=== PATIENT | female | born 1940 | race Caucasian/White ===

== ENCOUNTER 2017-07-11 14:30 | Outpatient (RCR) | payer MEDICARE, OTHER, SELFPAY ==
--- NOTE | 2017-05-07 14:53 | HP.PTEVAL_ITS ---
Patient's Visit Information MIREYA OSBORNE is a 76 year old F referred to Physical Therapy by Moises Angelo MD with a diagnosis of falls/balance issues.. Date of Evaluation: 05/07/17 Physical Therapist: Lance Hernández DPT, OC - Visit Plan Frequency: 2x /Week Duration: 4-6 Weeks Plan: Neurocom balance test then. 2x/week for 4-6 weeks for. 1. balance per reuslts. 2. Gait training\. 3. Strength of posture and LE care to be taken with L knee OA. Progress to HEP when safety allows. - Subjective Subjective: Stopped balance therapy b/c admitted to hospital for two weeks with strokes including rehab floor. Doctor Yessenia sent her to hospital after MRI results showed strokes. saw Dr. 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 Much blood pressure meds changed. Nerve study on L leg showed neuropathy. Fallen a number of times usually to the left most recently after hospital stay while reaching onto refrigerator and fell backwards. Had walk in front of her. Face was all bruised up. Got up off floor herself with UE. Has stairs 2 with one rail which she does with R LE. No spinning but describes unsteadiness. Then says some spinning when gets up too quick. L leg is neuropathic, doesn't feel numb in legs, then maybe a little on L Wears supportive socks. Uses wh walker 100% of time....used it since January. Lives with who is home with her but sick with COPD. Dtr helps her clean. Pt cooks. Basic ADLs are I on toilet and shower now. Spends the day at home, cannot drive. No regular exercises but has been given home exercises...she has been slacking with LE movements. - Objective Walks with wh walker back to PT Mod I. Without Walker needs MIn A due to many LOB. Transfers with UE I. steps are very weak with L leg and painful(OA) and needs 2 rail, tends to use R. reflexes 0/3 patella and achilles. Sensation LE is diminished mioderately to gross light touch L>R. Strenght is 3+ of L LE and 4- on R. LE AROM WFL but coordination of reciprocal toe and heel tap is poor and inv/ev challenging for patient. UE AROM WFL and strength 4-/5. VOR ambulation is hard, VOR at rest is challenging and slow head mvoement. - Balance Scores Functional Gait Assessment Score: 14 % Disability: 53.3400 CATSIB Score (Max score 120 seconds): 55 - Goals Goal 1:: FGA20/30 to diminish fall risk Goal Time Frame: 4-6 Weeks Goal 2:: Pt ascend and descend steps with one rail utilizing each leg. Goal Time Frame: 4-6 Weeks Goal 3:: Pt feel 50% stronger and able to do dishes without fatigue. Goal Time Frame: 4-6 Weeks Goal 4:: I approp HEP for balance and strength. Goal Time Frame: 4-6 Weeks Goal 5:: Neurocom balance assessment per order. Goal Time Frame: 2 Weeks - Rehabilitation Potential Physical Therapy Diagnosis: Unsteadyiness, multifactorial neuropathy/strokes/ weakness Rehabilitation Potential: Fair - Anticipated Interventions Patient/Client Instruction: Educate patient on: Condition, Risk Factors Comments: balance For the Purpose of:: To improve safety with gait Therapeutic Exercise to Include: Strength training, Balance training, Gait and locomotor training For the Purpose of:: To improve ability of physical actions for home/community/ work/leisure, To improve gait and locomotor functions, To improve safety with gait Thank you for the opportunity to evaluate your patient. For Medicare and Medicare HMO plans, please review the plan of care and approve it. It will need to be FAXED BACK to us at [phone] for Medicare purposes. Please let me know if there are questions or concerns regarding this plan of care. Physician Signature: Date:
--- NOTE | 2017-05-21 11:30 | HP.PTCOM ---
PT Communication Note 05/21/[address] Moises Angelo MD , Thank you for the referral of Yesenia to [email or web address] for balance assessment. I have enclosed a copy of her results for your review. In summation, she scored low on the vestibular portion of the Sensory Organization test. She also scored low on the forward weight shift control and forward and right weight shift excursion on the Limtis of Stability Test. In the battery of tests she showed a center of gravity malalignment to the Left. With these results in mind, I plan to see her 2x/week for 4 weeks for realignment of center of gravity, forward and right weight shifting, LE adn postural strength and gait training. If there are questions regarding her PT, please feel free to call me. Thank you again. Sincerely, Lance Hernández DPT, OC Contact Information
--- NOTE | 2017-05-21 11:33 | HP.PTCOM_ITS ---
PT Communication Note 05/21/[address] Moises Angelo MD , Thank you for the referral of Yesenia to [email or web address] for balance assessment. I have enclosed a copy of her results for your review. In summation, she scored low on the vestibular portion of the Sensory Organization test. She also scored low on the forward weight shift control and forward and right weight shift excursion on the Limtis of Stability Test. In the battery of tests she showed a center of gravity malalignment to the Left. With these results in mind, I plan to see her 2x/week for 4 weeks for realignment of center of gravity, forward and right weight shifting, LE adn postural strength and gait training. If there are questions regarding her PT, please feel free to call me. Thank you again. Sincerely, Lance Hernández DPT, OC Contact Information
--- NOTE | 2017-06-25 11:45 | HP.PTREVAL_ITS ---
Moises Angelo MD, It has been my pleasure to treat MIREYA OSBORNE over the last 9 visits for falls /balance issues.. Please see the progress note below for an update on the physical therapy plan of care! Subjective: Knee pain L>R has been worse lately. 02/13 today. Will try to see doctor this week. Feels like balance is improving as she is not falling. Uses wh walker much of time. Hard to keep it close. Doing HEP for LE movements and posture. Objective/Function: SOT: +9 and normal sensory breakdown. LOS:improvong FW weight shift. FGA:+6. OVERALL IMPROVING BALANCE. ;PT HAS KNEE PAIN WHCIH SHE HALLMAN EE HER FAMILY DOCTOR FOR. SEEMS TO HAVE PROBLEMS WITH WALKING WITH HEAD MOVEMENTS STILL THIS IS UNSTEADY Plan Plan: Pt wants to take a break for the holiodays and resume in the New YEar. 2x /week for 3-4 weeks...please focus on walking with head movements, forward weight shift and progressing to balance HEP with foam, head movements and forward weight shift with pics. Also, pt to bring cane for attempted gait training to safety with cane. Goals Goal 1:: FGA2/ to diminish fall risk Goal Time Frame: 4-6 Weeks Goal Progress: Goal Met Goal 2:: Pt ascend and descend steps with one rail utilizing each leg. Goal Time Frame: 4-6 Weeks Goal Progress: Goal Met Goal 3:: Pt feel 50% stronger and able to do dishes without fatigue. Goal Time Frame: 4-6 Weeks Goal Progress: Progressing Goal 4:: I approp HEP for balance and strength. Goal Time Frame: 4-6 Weeks Goal Progress: Progressing Goal 5:: Neurocom balance assessment per order. Goal Time Frame: 2 Weeks Goal Progress: Goal Met Goal 6:: FGA and I in use of cane safely at home. Goal Time Frame: 2-4 Weeks Goal Progress: NEW GOAL Anticipated Interventions Patient/Client Instruction: Educate patient on: Condition, Risk Factors Comments: balance For the Purpose of:: To improve safety with gait Therapeutic Exercise to Include: Strength training, Balance training, Gait and locomotor training For the Purpose of:: To improve ability of physical actions for home/community/ work/leisure, To improve gait and locomotor functions, To improve safety with gait Please do not hesitate to contact me at [phone] by phone or Fax: if you have questions or concerns regarding this new plan of care! Sincerely, GUADALUPE TiptonT, OC
--- NOTE | 2017-11-05 08:54 | HP.PTDCNRP_ITS ---
HP - Discharge Summary (1) - Patient Information MIREYA OSBORNE was seen in my office for initial evaluation on 05/07/17. The following Plan of Care was established for this patient: Initial Frequency: 2x /Week Initial Duration: 4-6 Weeks - Anticipated Interventions Patient/Client Instruction: Educate patient on: Condition, Risk Factors Comments: balance For the Purpose of:: To improve safety with gait Therapeutic Exercise to Include: Strength training, Balance training, Gait and locomotor training For the Purpose of:: To improve ability of physical actions for home/community/ work/leisure, To improve gait and locomotor functions, To improve safety with gait This patient was last seen in our office 07/11/17. Pertinent comments regarding their Physical therapy will appear below: Pt seen for 11 visits for her balance and was making progress. She cancelled her last remaining visits and neglected to reschedule. at this point, I will discontinue due to nonattendance as it has been over three months. At this point I will be discontinuing this patient from physical therapy. I would be happy to see this patient again in the future if found appropriate by the physician. Thank you! Lance Hernández, DPT, OC
== END 2017-07-11 19:00 | disposition home or self-care (01) ==
LOC: PT 14:30
PROVIDERS: Family Provider Internal Medicine; PCP Internal Medicine; Visit Provider Psychiatry & Neurology Neurology
DX: R26.81 Unsteadiness on feet (principal); R29.6 Repeated falls
CPT/HCPCS: 97110; 97162; 97750; 97116; 97530; G8978; G8979

== ENCOUNTER → 2017-09-22 11:12 | Outpatient (CLI) | payer MEDICARE, OTHER, SELFPAY ==
[2017-09-22 11:20] LABS: Mucous, Urine 0 SEEN /hpf (<or=2+)
[2017-09-22 11:49] LABS: Absolute Lymphocyte Count 1.52 X10^3/ul (0.83-4.51); Absolute Neutrophil Count 3.2 X10^3/uL (2.0-7.7); Basophil# 0.02 X10^3/uL; Basophil% 0.4 % (0-1); Eosinophil# 0.15 X10^3/uL; Eosinophils% 2.7 % (0-5); Hematocrit 40.9 % (37-47); Hemoglobin 13.9 g/dl (12.0-15.0); Lymphocyte # 1.52 X10^3/ul (4.0); Lymphocyte % 27.2 % (19-41); Mean Corpuscular Hgb 32.7 pg (27.0-32.0); Mean Corpuscular Volume 96.2 fL (81-99); Mean Platelet Vol. 9.4 fl (6.2-12.0); Monocyte# 0.66 X10^3/uL; Monocyte% 11.8 % (0-10); Neutrophil # 3.23 X10^3/uL (2.7-7.7); Neutrophil % 57.9 % (47-70); Platelet Count 304 K/mm3 (150-450); RBC Distribution Width SD 45.4 fl (35.1-43.9); Red Blood Count 4.25 M/mm3 (4.2-5.4); White Blood Count 5.6 K/mm3 (4.4-11.0)
[2017-09-22 11:50] LABS: Color, Urine Yellow (Yellow); Glucose, Dipstick Normal (Normal); Ketone-Dipstick Negative (Negative); Leukocyte Esterase-Dipstick 500 /ul (Negative); Nitrite-Dipstick Positive (Negative); Occult Blood-Urine 10 /ul (Negative); POSITIVE COUNT NO; POSITIVE DIFFERENTIAL NO; POSITIVE MORPHOLOGY NO; Protein-Dipstick 15 mg/dl (Negative); Specific Gravity, Urine 1.025 (1.002-1.030); Urine Bilirubin Dipstick Negative (Negative); Urine Clarity Sl. Cloudy (Clear); Urine Urobilinogen Normal (Normal)
[2017-09-22 11:59] LABS: Bacteria 2+ /hpf (None Seen); Red Blood Cells-Urine 0-5 SEEN /hpf (0-5); Squamous Epithelial Cells - UA 0-5 SEEN /hpf (5-10); White Blood Cells 25-50 SEEN /hpf (0-5)
[2017-09-22 12:13] LABS: Microalbumin,Random Urine 42.6 mg/L (NO RANGE EST.); Microalbumin:Creatinine Ratio 25.8 mg/g CRE (<30 mg/g CRE)
[2017-09-22 14:37] LABS: ALB/GLOB Ratio 0.9 RATIO (0.9-2.4); AST(SGOT) 22 U/L (15-37); Alanine Aminotransfer ALT/SGPT 24 U/L (13-56); Albumin, Serum 3.5 g/dL (3.2-5.0); Alkaline Phosphatase 86 U/L (45-117); Anion Gap 10 (5-15); BUN 13 mg/dL (7-18); BUN/Creat Ratio 15.9 RATIO (10-20); Calcium,Total 8.7 mg/dL (8.5-10.1); Chloride 100 mmol/L (98-107); Cholesterol 181 mg/dL (200); Creatinine, Serum 0.82 mg/dL (0.55-1.02); EST Glomerular Filtration Rate 72 mL/min (>60); Est Glom Filt Rate - Afr Amer 87 mL/min (>60); Globulin 3.9 g/dL (2.2-4.2); Glucose 104 mg/dL (74-106); High Density Lipoprotein 35 mg/dL; Potassium 3.5 mmol/L (3.5-5.1); Protein, Total 7.4 g/dL (6.4-8.2); Sodium Level 137 mmol/L (136-145); Thyroid Stim Hormone (TSH) 1.39 uIU/mL (0.358-3.74); Triglycerides 189 mg/dL; Very Low Density Lipoprotein 38 mg/dL (5-40)
== END ==
PROVIDERS: Family Provider Internal Medicine; PCP Internal Medicine; Visit Provider Internal Medicine
DX: E03.9 Hypothyroidism, unspecified (principal); E78.00 Pure hypercholesterolemia, unspecified; R73.02 Impaired glucose tolerance (oral)
CPT/HCPCS: 36415; 80053; 80061; 81001; 82043; 82570; 84443; 85025

== ENCOUNTER → 2017-11-05 10:47 | Outpatient (CLI) | payer MEDICARE, OTHER, SELFPAY ==
--- NOTE | 2017-11-05 10:52 | MRI_ITS ---
STUDY: MRI CERVICAL SPINE WITHOUT CONTRAST REASON FOR EXAM: Female, 77 years old. CERVICAL STENOSIS -- NKI,no neck pain or arm radiculopathy, off balance with bilat leg weakness. TECHNIQUE: Standardized fat and water weighted pulse sequences were obtained in the sagittal and axial planes. COMPARISON: None FINDINGS: Normal foramen magnum and brainstem-cervical cord junction. Normal craniovertebral junction. Normal anterior atlantoaxial articulation. Normal odontoid process. There is straightening of the normal cervical lordosis. C2-3: There is normal disc space height. There is minimal anterolisthesis. There is facet arthropathy. There is no significant central canal or foraminal stenosis. C3-4: There is mild disc space narrowing and endplate spondylosis. There is a mild disc osteophyte complex with mild central canal stenosis. There is uncovertebral and facet arthropathy with severe left foraminal stenosis. There is mild right foraminal stenosis. C4-5: There is moderate disc space narrowing and anterior spondylosis. There is a mild disc osteophyte complex with mild central canal stenosis. Uncovertebral and facet arthropathy with moderate right and severe left foraminal stenosis. C5-6: There is severe disc space narrowing and endplate spondylosis. There is a disc osteophyte complex with moderate central canal stenosis. There is uncovertebral and facet arthropathy with severe right and moderate left foraminal stenosis. There is minimal retrolisthesis. C6-7: There is mild disc space narrowing and anterior spondylosis. There is minimal minimal disc osteophyte complex and uncovertebral arthropathy without significant spinal canal or foraminal stenosis. C7-T1: Normal endplates. Normal disc height, signal and morphology. Normal central canal and intervertebral neural foramina. Normal cervical cord. Normal visualized soft tissue structures. MRI/Spine Cervical (Routine) IMPRESSION: C3/C4: Severe left foraminal stenosis. C4/C5: Moderate right and severe left foraminal stenosis. C5/C6: Moderate central canal stenosis. Severe right and moderate left foraminal stenosis. Electronically Signed: Che Quintanilla MD at 12:44 EDT Tel , Service support ,
== END ==
PROVIDERS: Family Provider Internal Medicine; PCP Internal Medicine; Visit Provider Psychiatry & Neurology Neurology
DX: G95.20 Unspecified cord compression (principal); M48.02 Spinal stenosis, cervical region
CPT/HCPCS: 72141

== ENCOUNTER → 2017-11-12 10:26 | Outpatient (CLI) | payer MEDICARE, OTHER, SELFPAY ==
--- NOTE | 2017-11-12 10:28 | BI_ITS ---
MAMMOGRAPHY - BILATERAL SCREENING REASON FOR EXAM: Female, 77 years old. Routine annual screening examination. PERTINENT HISTORY: Non-contributory. History of prior bilateral breast reduction surgery. TECHNIQUE: Digital bilateral breast loli (3D mammographic acquisition) in the CC and MLO projections. 2-D mediolateral oblique (MLO) and craniocaudad (CC) views of both breasts were obtained. CAD: Full Field Digital Mammography with Computer Added Detection was performed. COMPARISON: Comparison is made with prior study dated February 29, 2016 and May 05, 2014. FINDINGS: Breast Composition: There are scattered areas of fibroglandular density. There are no dominant masses or suspicious calcifications. Stable small bilateral benign appearing axillary lymph nodes. No other significant abnormalities are identified. There has been no significant change since the prior study. BI/SCREENING MAMM (CAD), BILAT IMPRESSION: Stable bilateral screening mammogram. Yearly follow-up mammogram recommended. (A) ASSESSMENT CATEGORY: BIRADS Category 2: Benign. A letter regarding these results will be sent to the patient by the facility within 30 days. Approximately 10% of breast cancers are not detected by mammography. A normal mammogram should not delay biopsy of a clinically suspicious abnormality. [id number] Electronically Signed: Panfilo Gonsalves MD at 13:31 EDT Tel [phone], Service support ,
--- NOTE | 2017-11-12 10:35 | BD_ITS ---
STUDY: DUAL ENERGY X-RAY ABSORPTIOMETRY / DXA REASON FOR EXAM: Female, 77 years old. The patient is postmenopausal. Loss of height. TECHNIQUE: Bone Mineral Density (BMD) measurements of lumbar spine and bilateral hips were obtained. COMPARISON: Comparison is made with prior study dated February 25, 2013. FINDINGS: Lumbar Spine (L1-L4): g/cm2 (1.315) / T-score (1.0) / Z-score (2.7) Findings are suggestive of normal bone density with a low fracture risk. Left Femur Total: g/cm2 (1.071) / T-score (0.5) / Z-score (2.4) Left Femoral Neck: g/cm2 (1.091) / T-score (0.4) / Z-score (2.4) Right Femur Total: g/cm2 (1.044) / T-score (0.3) / Z-score (2.2) Right Femoral Neck: g/cm2 (1.034) / T-score (0.0) / Z-score (2.0) The T-Scores on the most recent prior examination were: Left Femur Total: which represents a worsening of 0.6%. Right Femur Total: which represents an improvement of 2.2%. BD/Dexa Bone Density Study IMPRESSION: The patient is considered normal as outlined below according to World Ryan Organization (WHO) criteria with a low fracture risk. There has been improvement of bone density since the previous examination. Reference Information: The T-score is the number of standard deviations above or below the standard which is normal for young adults at their peak bone mineral density. The World Health Organization (WHO) interprets the T-scores as follows: Above -1 Normal bone density Between -1 and -2.5 Osteopenia Equal to / or below -2.5 Osteoporosis As a practical clinical guideline, osteopenia may be graded as follows: Mild -1 through -1.5 Moderate -1.6 through -2.0 Severe -2.1 through -2.4 The Z-score is the number of standard deviations above or below age-matched controls. A Z-score of less than -1.5 would be considered abnormal. References: 1. NIH Osteoporosis and Related Bone Diseases http://www.osteo.org 2. International Society for Clinical Densitometry http://www.iscd.org 3. National Osteoporosis Foundation http://www.nof.org Electronically Signed: Panfilo Gonsalves MD at 14:22 EDT Tel [phone], Service support ,
== END ==
PROVIDERS: Family Provider Internal Medicine; PCP Internal Medicine; Visit Provider Internal Medicine
DX: Z78.0 Asymptomatic menopausal state (principal); Z12.31 Encounter for screening mammogram for malignant neoplasm of breast
CPT/HCPCS: 77063; 77067; 77080

== ENCOUNTER → 2018-03-04 09:45 | Outpatient (CLI) | payer MEDICARE, OTHER, SELFPAY ==
[2018-03-04 09:55] LABS: Bacteria 0 SEEN /hpf (None Seen); Mucous, Urine 0 SEEN /hpf (<or=2+); Red Blood Cells-Urine 0 SEEN /hpf (0-5); Squamous Epithelial Cells - UA 0 SEEN /hpf (5-10)
[2018-03-04 10:32] LABS: Color, Urine Yellow (Yellow); Glucose, Dipstick Normal (Normal); Ketone-Dipstick Negative (Negative); Leukocyte Esterase-Dipstick 25 /ul (Negative); Nitrite-Dipstick Negative (Negative); Occult Blood-Urine Negative /ul (Negative); Protein-Dipstick Negative (Negative); Urine Bilirubin Dipstick Negative (Negative); Urine Clarity Clear (Clear); Urine Urobilinogen Normal (Normal)
[2018-03-04 10:35] LABS: Absolute Lymphocyte Count 1.41 X10^3/ul (0.83-4.51); Absolute Neutrophil Count 3.3 X10^3/uL (2.0-7.7); Basophil# 0.02 X10^3/uL; Basophil% 0.4 % (0-1); Eosinophil# 0.14 X10^3/uL; Eosinophils% 2.6 % (0-5); Hematocrit 45.1 % (37-47); Lymphocyte # 1.41 X10^3/ul (4.0); Mean Corp Hgb Conc 33.3 g/gl (32-36); Mean Corpuscular Hgb 31.6 pg (27.0-32.0); Mean Corpuscular Volume 95.1 fL (81-99); Mean Platelet Vol. 9.7 fl (6.2-12.0); Neutrophil # 3.25 X10^3/uL (2.7-7.7); Neutrophil % 59.8 % (47-70); Platelet Count 289 K/mm3 (150-450); RBC Distribution Width CV 13.5 % (11.6-14.6); Red Blood Count 4.74 M/mm3 (4.2-5.4); White Blood Count 5.4 K/mm3 (4.4-11.0)
[2018-03-04 10:37] LABS: POSITIVE COUNT NO; POSITIVE DIFFERENTIAL NO; POSITIVE MORPHOLOGY NO
[2018-03-04 11:05] LABS: ALB/GLOB Ratio 0.9 RATIO (0.9-2.4); AST(SGOT) 22 U/L (15-37); Alanine Aminotransfer ALT/SGPT 29 U/L (13-56); Albumin, Serum 3.5 g/dL (3.2-5.0); Alkaline Phosphatase 87 U/L (45-117); Anion Gap 9 (5-15); BUN 11 mg/dL (7-18); BUN/Creat Ratio 12.2 RATIO (10-20); Calcium,Total 8.6 mg/dL (8.5-10.1); Chloride 102 mmol/L (98-107); EST Glomerular Filtration Rate 64 mL/min (>60); Est Glom Filt Rate - Afr Amer 78 mL/min (>60); Globulin 4.1 g/dL (2.2-4.2); Glucose 93 mg/dL (74-106); Potassium 4.1 mmol/L (3.5-5.1); Protein, Total 7.6 g/dL (6.4-8.2); Sodium Level 138 mmol/L (136-145); Thyroid Stim Hormone (TSH) 2.15 uIU/mL (0.358-3.74)
[2018-03-04 11:15] LABS: White Blood Cells 0-5 SEEN /hpf (0-5)
[2018-03-04 11:17] LABS: Microalbumin,Random Urine < 5.0 mg/L (NO RANGE EST.)
[2018-03-07 12:07] LABS: CHOLESTEROL TOTAL 176 mg/dL (100-199); HDL-C 39 mg/dL (>39); HDL-P TOTAL 29.6 umol/L (>=30.5); SMALL LDL-P 811 nmol/L (<=527); TRIGLYCERIDES 198 mg/dL (0-149)
[2018-03-09 12:40] LABS: LDL SIZE 20.4 nm (>20.5); LDL-C 97 mg/dL (0-99); LDL-P 1519 nmol/L (<1000); LP-IR SCORE ** 89 (<=45)
== END ==
PROVIDERS: Family Provider Internal Medicine; PCP Internal Medicine; Visit Provider Internal Medicine
DX: E03.9 Hypothyroidism, unspecified (principal); I11.9 Hypertensive heart disease without heart failure
CPT/HCPCS: 36415; 80053; 80061; 81001; 82043; 82570; 83704; 84443; 85025

== ENCOUNTER → 2018-04-08 14:41 | Outpatient (CLI) | payer MEDICARE, OTHER, SELFPAY ==
--- NOTE | 2018-04-08 14:45 | RAD_ITS ---
STUDY: X-RAY - LEFT FOOT CLINICAL: Female, 77 years old. fell in the bathtub and hit ankle/foot several months ago TECHNIQUE: 3 view(s) of the foot. COMPARISON: None. FINDINGS: There is a plantar calcaneal spur. Postsurgical changes are noted in the first metatarsal. Normal visualized subtalar, talonavicular, calcaneocuboid, tarsal and tarsometatarsal articulations. There is demineralization of the metatarsi. Postsurgical changes are noted in the first metatarsal. There is degenerative arthrosis of the metatarsophalangeal joint of the hallux . Normal tibial and fibular sesamoid bones. There is degenerative arthrosis of the interphalangeal joint of the great toe. Normal phalanges of the great toe. There is degenerative arthrosis of the second through fifth metatarsophalangeal joints. There is degenerative arthrosis of the interphalangeal joints and phalanges of the lesser toes. The soft tissue structures are unremarkable. 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 There is a mildly displaced fracture of the lateral malleolus. Electronically Signed: Yara Muñoz MD at 13:13 EDT Tel , Service support ,
--- NOTE | 2018-04-08 14:45 | RAD_ITS ---
STUDY: X-RAY - LEFT ANKLE REASON FOR EXAM: Female, 77 years old. Fall TECHNIQUE: 3 view(s) of the ankle. COMPARISON: None. FINDINGS: Normal visualized distal tibia and fibula. Normal medial and lateral malleoli. Normal tibiotalar articulation and ankle mortise. Normal visualized talus and calcaneus. Plantar spurring of the calcaneus. The visualized subtalar, talonavicular, calcaneocuboid and tarsal articulations are normal. The soft tissue structures are unremarkable. Surgical clips medially likely from previous vascular surgery. RAD/Ankle min 3 Views IMPRESSION: No acute bony injury of the ankle. Electronically Signed: Luisito Pitts DO at 23:53 EDT Tel [phone], Service support ,
== END ==
PROVIDERS: Family Provider Internal Medicine; PCP Internal Medicine; Referring Provider Internal Medicine; Visit Provider Internal Medicine
DX: M25.572 Pain in left ankle and joints of left foot (principal); M25.672 Stiffness of left ankle, not elsewhere classified
CPT/HCPCS: 73610; 73630

== ENCOUNTER → 2018-04-21 05:00 | Outpatient (REF) | payer MEDICARE, OTHER, SELFPAY ==
[2018-04-21 07:41] LABS: Absolute Lymphocyte Count 1.44 X10^3/ul (0.83-4.51); Absolute Neutrophil Count 3.8 X10^3/uL (2.0-7.7); Basophil# 0.03 X10^3/uL; Basophil% 0.5 % (0-1); Eosinophil# 0.18 X10^3/uL; Eosinophils% 2.8 % (0-5); Hematocrit 37.1 % (37-47); Hemoglobin 13.3 g/dl (12.0-15.0); Lymphocyte # 1.44 X10^3/ul (4.0); Lymphocyte % 22.7 % (19-41); Mean Corp Hgb Conc 35.8 g/gl (32-36); Mean Corpuscular Hgb 33.3 pg (27.0-32.0); Mean Platelet Vol. 9.6 fl (6.2-12.0); Monocyte# 0.86 X10^3/uL; Monocyte% 13.5 % (0-10); Neutrophil # 3.82 X10^3/uL (2.7-7.7); Neutrophil % 60.2 % (47-70); Platelet Count 270 K/mm3 (150-450); RBC Distribution Width CV 13.1 % (11.6-14.6); RBC Distribution Width SD 43.5 fl (35.1-43.9); Red Blood Count 3.99 M/mm3 (4.2-5.4); White Blood Count 6.4 K/mm3 (4.4-11.0)
[2018-04-21 07:46] LABS: POSITIVE COUNT NO; POSITIVE DIFFERENTIAL NO; POSITIVE MORPHOLOGY NO
[2018-04-21 08:15] LABS: ALB/GLOB Ratio 0.9 RATIO (0.9-2.4); AST(SGOT) 20 U/L (15-37); Alanine Aminotransfer ALT/SGPT 22 U/L (13-56); Albumin, Serum 3.1 g/dL (3.2-5.0); Alkaline Phosphatase 92 U/L (45-117); Anion Gap 9 (5-15); BUN 9 mg/dL (7-18); BUN/Creat Ratio 11.3 RATIO (10-20); Calcium,Total 8.1 mg/dL (8.5-10.1); Chloride 92 mmol/L (98-107); Creatinine, Serum 0.79 mg/dL (0.55-1.02); EST Glomerular Filtration Rate 74 mL/min (>60); Est Glom Filt Rate - Afr Amer 90 mL/min (>60); Globulin 3.5 g/dL (2.2-4.2); Glucose 82 mg/dL (74-106); Potassium 3.1 mmol/L (3.5-5.1); Protein, Total 6.6 g/dL (6.4-8.2); Sodium Level 128 mmol/L (136-145); Thyroid Stim Hormone (TSH) 2.73 uIU/mL (0.358-3.74)
== END ==
LOC: OLS.AVEB 05:00
PROVIDERS: Visit Provider Family Medicine
DX: I11.0 Hypertensive heart disease with heart failure (principal); I50.9 Heart failure, unspecified; I49.9 Cardiac arrhythmia, unspecified; I73.9 Peripheral vascular disease, unspecified; E55.9 Vitamin D deficiency, unspecified; E03.9 Hypothyroidism, unspecified; E78.00 Pure hypercholesterolemia, unspecified; C71.9 Malignant neoplasm of brain, unspecified; Z86.73 Personal history of transient ischemic attack (TIA), and cerebral infarction without residual deficits
CPT/HCPCS: 36415; 80053; 84443; 85025

== ENCOUNTER → 2018-04-22 05:00 | Outpatient (REF) | payer MEDICARE, OTHER, SELFPAY ==
[2018-04-22 09:47] LABS: Anion Gap 10 (5-15); BUN 8 mg/dL (7-18); BUN/Creat Ratio 11.2 RATIO (10-20); Calcium,Total 8.4 mg/dL (8.5-10.1); Chloride 93 mmol/L (98-107); Creatinine, Serum 0.71 mg/dL (0.55-1.02); EST Glomerular Filtration Rate 84 mL/min (>60); Est Glom Filt Rate - Afr Amer 102 mL/min (>60); Glucose 87 mg/dL (74-106); Potassium 3.9 mmol/L (3.5-5.1); Sodium Level 128 mmol/L (136-145)
== END ==
LOC: OLS.AVEB 05:00
PROVIDERS: Visit Provider Family Medicine
DX: E87.6 Hypokalemia (principal)
CPT/HCPCS: 36415; 80048

== ENCOUNTER 2018-04-29 13:31 | Inpatient (IN) | payer MEDICARE, OTHER, SELFPAY ==
[2018-04-29] VITALS (12 sets, daily range): BP systolic 137–169; BP diastolic 54–107; PULSE 71–82; RESP 14–18; TEMP 36.4–36.7; O2SAT 93–99; BMI 30.2; BMI 29.5; BMI 29.6
--- NOTE | 2018-04-29 13:45 | EKG12_ITS ---
Test Reason : NEURO S/SX Blood Pressure : / mmHG Vent. Rate : 077 BPM Atrial Rate : 077 BPM P-R Int : 188 ms QRS Dur : 138 ms QT Int : 404 ms P-R-T Axes : 042 -14 -11 degrees QTc Int : 457 ms Normal sinus rhythm Right bundle branch block Inferior infarct , age undetermined Abnormal ECG Confirmed by SONAL ROSARIO, VIRGINIE ([id number]), editor map RONNIE CAVAZOS ([id number]) on 05/01/2018 1:25:51 PM Referred By: CARMINA Confirmed By:VIRGINIE PRUITT MD
--- NOTE | 2018-04-29 13:45 | CT_ITS ---
STUDY: CT BRAIN WITHOUT CONTRAST REASON FOR EXAM: Female, 77 years old. Left facial droop slurred speech RADIATION DOSAGE (If Supplied By Facility): CTDIvol = ( 44.99 ) mGy, DLP = ( 745.49 ) mGycm TECHNIQUE: Transaxial CT imaging of the brain was performed without administration of intravenous contrast material. Individualized dose optimization techniques were used for this CT. COMPARISON: April 08, 2017 CT scan head FINDINGS: Normal soft tissue structures. Normal calvarium. There is moderate cerebral atrophy with widening of the extra-axial spaces and ventricular dilatation. There are areas of decreased attenuation within the white matter tracts of the supratentorial brain, consistent with microvascular disease changes. There is low attenuation within the right-sided basal ganglia left greater than left stable since prior study compatible with old ischemic change. Normal brainstem. There is mild cerebellar atrophy. There is calcification of the bilateral cavernous carotid arteries. There is no intracranial hemorrhage. There are no findings of an acute ischemic infarction. Normal visualized paranasal sinuses. CT/Brain/Head without Contrast IMPRESSION: Moderate atrophy. Relatively stable appearing head CT. However given clinical history recommend consideration for follow-up MRI. Electronically Signed: Roseanna Tatum MD at 14:45 EDT Tel , Service support ,
[2018-04-29 13:51] LABS: Bedside Glucose 100 mg/dL (70-110)
[2018-04-29] MEDS: 0.9% Normal Saline 1,000 ML 100 ML IV (14:21)
[2018-04-29 14:30] LABS: Absolute Lymphocyte Count 1.36 X10^3/ul (0.83-4.51); Absolute Neutrophil Count 2.9 X10^3/uL (2.0-7.7); Basophil# 0.02 X10^3/uL; Basophil% 0.4 % (0-1); Eosinophil# 0.17 X10^3/uL; Eosinophils% 3.3 % (0-5); Hematocrit 40.5 % (37-47); Hemoglobin 13.7 g/dl (12.0-15.0); Lymphocyte # 1.36 X10^3/ul (4.0); Lymphocyte % 26.3 % (19-41); Mean Corp Hgb Conc 33.8 g/gl (32-36); Mean Corpuscular Hgb 32.4 pg (27.0-32.0); Mean Corpuscular Volume 95.7 fL (81-99); Monocyte# 0.67 X10^3/uL; Neutrophil # 2.94 X10^3/uL (2.7-7.7); Neutrophil % 56.8 % (47-70); POSITIVE COUNT NO; POSITIVE DIFFERENTIAL NO; POSITIVE MORPHOLOGY NO; Platelet Count 313 K/mm3 (150-450); RBC Distribution Width SD 47.2 fl (35.1-43.9); Red Blood Count 4.23 M/mm3 (4.2-5.4); White Blood Count 5.2 K/mm3 (4.4-11.0)
[2018-04-29 14:38] LABS: Prothrombin Time (Protime)PT. 12.9 SECONDS (11.7-14.9)
[2018-04-29 14:39] LABS: Partial Thromboplast Time 29.8 Seconds (24.1-36.2)
[2018-04-29 14:42] LABS: Anion Gap 8 (5-15); BUN 11 mg/dL (7-18); BUN/Creat Ratio 12.2 RATIO (10-20); Calcium,Total 8.7 mg/dL (8.5-10.1); Chloride 97 mmol/L (98-107); EST Glomerular Filtration Rate 64 mL/min (>60); Est Glom Filt Rate - Afr Amer 78 mL/min (>60); Estimated Creatinine Clearance 50.91 ml/min; Glucose 84 mg/dL (74-106); Potassium 4.5 mmol/L (3.5-5.1); Sodium Level 132 mmol/L (136-145)
--- NOTE | 2018-04-29 16:15 | PCM.HP.STD ---
Problem List (1) Slurred speech Status: Acute History of Present Illness Date of Admission: 04/29/18 Chief Complaint: slurred speech The patient is a 77 year old F with a PMH of HTN who was admitted through the ED on 04/29/18 with a complaint of slurred speech which started this morning. Patient is currently a patient in a SNF fo/a of right ankle fracture. She noted that she had slurring of her speech this morning. She couldnt say the exact time she noticed it, but whilst eating breakfast this morning, it wasnt present. Slurring of speech worsened so her daughter decided to bring her in to the hospital today. She had a mild headache yesterday, but denied any fever, chills, palpitations, SOB, lightheadedness, dizziness, ringing in her ears, abdominal pain, diarrhea or vomiting. EKG done in the ED showed RBBB and no acute ST changes. CT head was negative for any acute intracranial pathology. Labs were significant for sodium of 132, but was otherwise unremarkable. She is being admitted for stroke workup[] Past Medical History Past Medical History (Chronic Problems): Chronic Problems (Last Reviewed 11/06/17 @ 11:23 by Cheli Larson) Hypokalemia (Chronic) Presence of aortocoronary bypass graft (Chronic) CABG X 2 CAN-LAD, SVG-CX 06/11/2014 @ [facility] per Dr. Sutton Atherosclerotic heart disease of [place] coronary artery without angina pectoris (Chronic) Presence of coronary angioplasty implant and graft (Chronic) IVUS left main 06/07/2014, PCI-FAREED Prox & Mid LAD 04/13/2015 Paroxysmal atrial fibrillation (Chronic) Dyspnea on exertion (Chronic) Dizziness (Chronic) Near syncope (Chronic) Stenosis of right carotid artery (Chronic) Right bundle branch block (Chronic) Anxiety (Chronic) Hyperlipidemia (Chronic) Hypertension (Chronic) Hypothyroidism (Chronic) CVA (cerebral vascular accident) (Chronic) MRI demonstrated an acute infarct in the right thalamus and left parietal region. 01/2017 Medical History: Medical History (Last Reviewed 11/06/17 @ 11:23 by Cheli Larson) Hypokalemia (Chronic) E87.6 Atherosclerotic heart disease of [place] coronary artery without angina pectoris (Chronic) I25.10 Paroxysmal atrial fibrillation (Chronic) I48.0 Stenosis of right carotid artery (Chronic) I65.21 Right bundle branch block (Chronic) I45.10 Hyperlipidemia (Chronic) E78.5 Hypertension (Chronic) I10 Hypothyroidism (Chronic) E03.9 CVA (cerebral vascular accident) (Chronic) I63.9 MRI demonstrated an acute infarct in the right thalamus and left parietal region. 01/2017 Allergies atorvastatin Allergy (Verified 11/06/17 11:23) Unknown codeine Allergy (Verified 11/06/17 11:23) Unknown levofloxacin [From Levaquin] Allergy (Verified 11/06/17 11:23) Unknown Penicillins Allergy (Verified 11/06/17 11:23) Unknown pravastatin Allergy (Verified 11/06/17 11:23) myalgia Sulfa (Sulfonamide Antibiotics) Allergy (Verified 11/06/17 11:23) Unknown Home Medications: Ambulatory Orders Medication Instructions Recorded Levothyroxine [Synthroid] 75 mcg PO DAILY 06/07/14 ALPRAZolam [Xanax] 0.25 mg PO DAILY 04/29/18 Amlodipine Besylate [Norvasc] 2.5 mg PO DAILY 04/29/18 Bupropion HCl [Bupropion Xl] 150 mg PO DAILY 04/29/18 Clopidogrel Bisulfate [Plavix] 75 mg PO DAILY 04/29/18 Losartan Potassium [Cozaar] 100 mg PO DAILY 04/29/18 Potassium Chloride [Klor-Con M20] 40 meq PO BID 04/29/18 Venlafaxine XR [Effexor Xr] 150 mg PO DAILY 04/29/18 Surgical History: Surgical History (Last Reviewed 11/06/17 @ 11:23 by Cheli Larson) Presence of aortocoronary bypass graft (Chronic) Z95.1 CABG X 2 CAN-LAD, SVG-CX 06/11/2014 @ [facility] per Dr. Sutton Presence of coronary angioplasty implant and graft (Chronic) Z95.5 IVUS left main 06/07/2014, PCI-FAREED Prox & Mid LAD 04/13/2015 Surgical History: arthroscopy, knee, - - CABG, ankle surgery, kidney surgery, knee replacement Psychiatric History: No pertinent psych hx Lives: [place] Smoking Status: Never smoker Alcohol: None Drugs: None - *Family History Maternal Family History: Family History (Last Reviewed 11/06/17 @ 11:23 by Cheli Larson) Father Heart disease Sister Cancer Uncle CAD (coronary artery disease) History Items: - - strokers on mothers sides Paternal Family History: Family History (Last Reviewed 11/06/17 @ 11:23 by Cheli Larson) Father Heart disease Sister Cancer Uncle CAD (coronary artery disease) History Items: Heart Disease Review of Systems Constitutional: Denies: Chills, Fever, Malaise, Weakness, Weight Change, Fatigue Eyes: Reports: Conjunctivae Inflammation. Denies: Blurred vision, Double vision, Vision Change HEENT: Denies: Head Aches, Sinus Congestion, Sinus Drainage Cardiovascular: Denies: Chest Pain, Chest Pressure, Heaviness, Light Headedness, Palpitations, Paroxysmal Noc. Dyspnea, Syncope Respiratory: Denies: Cough, Shortness of Breath, Shortness of breath at rest, Sputum production, Wheezing Gastrointestinal: Denies: Abdominal Pain, Nausea, Vomiting Genitourinary: Denies: Dysuria Musculoskeletal: Denies: Joint Pain, Joint Tenderness Skin: Denies: Rash, Wounds Neurological: Reports: Balance problems, Change in Speech, Slurred speech. Denies: Blurred vision, Double vision, Confusion, Difficulty swallowing, Focal weakness, Headaches, Incoordination, Numbness, Tingling, Tremor, Seizures Psychiatric: Denies: Anxiety, Depression, Homicidal Ideations, Suicidal Ideations Hematologic/ Lymphatic: Denies: Easy Bruising, Easy Bleeding VTE Information - Inpt Only VTE Present on Admission: No VTE Pharm Prophylaxis ordered?: Yes Patient Problems: Active and Suspected Problems (Last Reviewed 11/06/17 @ 11:23 by Cheli Larson) Slurred speech (Acute) - Physical Exam General: Alert, Oriented x3, Cooperative, No apparent distress, - - has episodes of confusion HEENT: Atraumatic, PERRLA, EOMI, Normocephalic Oral: Moist Mucosa Neck: Supple, No JVD, Negative Carotid Bruits Lungs: Clear to auscultation, Normal air movement, No rhonchi, No wheeze, No rales Cardiovascular: Regular rate, Regular Rhythm, Normal S1, Normal S2, No murmurs Abdomen: Bowel Sounds Present, Soft, Non Tender, Non-Distended, No Hepato-splenomegaly Extremities: No clubbing, No cyanosis, No edema, Capillary Refill Less than 3 Seconds, - - RLE in leg splint Skin: No rashes, No breakdown Musculoskeletal: No Tenderness to Palpation of Joints or Extremities Lymphatic: No Cervical, Supraclavicular, or Inguinal Adenopathy Neurological: Slurred Speech, Muscle tone normal, Sensory exam intact to light touch and pain, - - NIHSS -2 (dysarthria and mild aphasia) Psych/Mental Status: Normal Affect, Appropriate, Alert and oriented to time, place, person, mood and affect Vital Signs Temp Pulse Resp BP Pulse Ox 97.5 F L 77 14 167/107 H 97 04/29/18 13:32 04/29/18 16:02 04/29/18 16:02 04/29/18 16:02 04/29/18 16:02 Oxygen Delivery Method Room Air Weight: 192 lb 14.472 oz Body Mass Index (BMI) 30.2 Finger Stick Blood Glucose 100 Laboratory Tests Past 24 Hrs 04/29/18 04/29/18 04/29/18 14:18 14:18 14:18 WBC 5.2 RBC 4.23 Hgb 13.7 Hct 40.5 MCV 95.7 MCH 32.4 H MCHC 33.8 RDW 14.0 RDW Differential 47.2 H Plt Count 313 MPV 9.0 Immature Gran % (Auto) 0.200 Neut % (Auto) 56.8 Lymph % (Auto) 26.3 Real % (Auto) 13.0 H Eos % (Auto) 3.3 Baso % (Auto) 0.4 Absolute Neuts (auto) 2.9 Absolute Lymphs (auto) 1.36 Total Counted Not Reportable PT 12.9 INR 1.0 APTT 29.8 Sodium 132 L Potassium 4.5 Chloride 97 L Carbon Dioxide 27.0 Anion Gap 8 BUN 11 Creatinine 0.90 Estim Creat Clear Calc 50.91 Est GFR (MDRD) Af Amer 78 Est GFR (MDRD) Non-Af 64 BUN/Creatinine Ratio 12.2 Glucose 84 Calcium 8.7 POC Glucose 04/29/18 13:43 POC Glucose [address] 04/29/18 13:45 IMPRESSION: Moderate atrophy. Relatively stable appearing head CT. However given clinical history recommend consideration for follow-up MRI. Electronically Signed: Roseanna Tatum MD at 14:45 EDT Tel , Service support , Assessment/Plan All Active Problems (Last Reviewed 11/06/17 @ 11:23 by Cheli Larson) Slurred speech (Acute) 77 y/o female presenting with slurred speech which started day of presentation 1. TIA slurred speech and mild aphasia present since this morning and has worsened NIHSS-2 says she was told in the past she had an abnormal heart rhythm, but doesnt remember whether it was Afib or otherwise admit to PCU with telemetry CT head was negative for any acute intracranial pathology MRI of the brain without contrast MRA of the head/neck with and without contrast check lipid panel and A1C aspirin 325mg given in ED; continue aspirin 81mg daily. Also on plavix o./a of CABG. continue neurology consult; 2D echo keep NPO until she passes bedside swallow evaluation will need 30 day event recorder upon discharge 2. Hyponatremia: Na is 132. Is chronic. Will monitor as patient is asymptomatic 3. Hypertension: poorly controlled. BP in 160s. Keep BP <130/80mmHg resume BP meds and adjust as needed to maintain BP below target range 4. Hyperlipidemia: patient has history of hyperlipidemia but doesnt take statins as she has a severe reaction. check lipid panel 5. LEft ankle fracture: in leg splint. fall precautions. PT/OT consult DVT prophylaxis: heparin COde status: full code. Patient and daughter counselled about different types of code status including full code, DNRCC and DNRCCA. Patient elects to be full code. TOtal face to face time- 16 mins Code Visit OBSV E&M: 37950 Initial observation care L3 Procedures: 57571 Advncd Care Plan 30 Min
--- NOTE | 2018-04-29 16:20 | HP.PCM_ITS ---
Problem List (1) Slurred speech Status: Acute History of Present Illness Date of Admission: 04/29/18 Chief Complaint: slurred speech The patient is a 77 year old F with a PMH of HTN who was admitted through the ED on 04/29/18 with a complaint of slurred speech which started this morning. Patient is currently a patient in a SNF fo/a of right ankle fracture. She noted that she had slurring of her speech this morning. She couldnt say the exact time she noticed it, but whilst eating breakfast this morning, it wasnt present. Slurring of speech worsened so her daughter decided to bring her in to the hospital today. She had a mild headache yesterday, but denied any fever, chills, palpitations, SOB, lightheadedness, dizziness, ringing in her ears, abdominal pain, diarrhea or vomiting. EKG done in the ED showed RBBB and no acute ST changes. CT head was negative for any acute intracranial pathology. Labs were significant for sodium of 132, but was otherwise unremarkable. She is being admitted for stroke workup[] Past Medical History Past Medical History (Chronic Problems): Chronic Problems (Last Reviewed 11/06/17 @ 11:23 by Cheli Larson) Hypokalemia (Chronic) Presence of aortocoronary bypass graft (Chronic) CABG X 2 CAN-LAD, SVG-CX 06/11/2014 @ [facility] per Dr. Sutton Atherosclerotic heart disease of [place] coronary artery without angina pectoris (Chronic) Presence of coronary angioplasty implant and graft (Chronic) IVUS left main 06/07/2014, PCI-FAREED Prox & Mid LAD 04/13/2015 Paroxysmal atrial fibrillation (Chronic) Dyspnea on exertion (Chronic) Dizziness (Chronic) Near syncope (Chronic) Stenosis of right carotid artery (Chronic) Right bundle branch block (Chronic) Anxiety (Chronic) Hyperlipidemia (Chronic) Hypertension (Chronic) Hypothyroidism (Chronic) CVA (cerebral vascular accident) (Chronic) MRI demonstrated an acute infarct in the right thalamus and left parietal region. 01/2017 Medical History: Medical History (Last Reviewed 11/06/17 @ 11:23 by Cheli Larson) Hypokalemia (Chronic) E87.6 Atherosclerotic heart disease of [place] coronary artery without angina pectoris (Chronic) I25.10 Paroxysmal atrial fibrillation (Chronic) I48.0 Stenosis of right carotid artery (Chronic) I65.21 Right bundle branch block (Chronic) I45.10 Hyperlipidemia (Chronic) E78.5 Hypertension (Chronic) I10 Hypothyroidism (Chronic) E03.9 CVA (cerebral vascular accident) (Chronic) I63.9 MRI demonstrated an acute infarct in the right thalamus and left parietal region. 01/2017 Allergies atorvastatin Allergy (Verified 11/06/17 11:23) Unknown codeine Allergy (Verified 11/06/17 11:23) Unknown levofloxacin [From Levaquin] Allergy (Verified 11/06/17 11:23) Unknown Penicillins Allergy (Verified 11/06/17 11:23) Unknown pravastatin Allergy (Verified 11/06/17 11:23) myalgia Sulfa (Sulfonamide Antibiotics) Allergy (Verified 11/06/17 11:23) Unknown Home Medications: Ambulatory Orders Medication Instructions Recorded Levothyroxine [Synthroid] 75 mcg PO DAILY 06/07/14 ALPRAZolam [Xanax] 0.25 mg PO DAILY 04/29/18 Amlodipine Besylate [Norvasc] 2.5 mg PO DAILY 04/29/18 Bupropion HCl [Bupropion Xl] 150 mg PO DAILY 04/29/18 Clopidogrel Bisulfate [Plavix] 75 mg PO DAILY 04/29/18 Losartan Potassium [Cozaar] 100 mg PO DAILY 04/29/18 Potassium Chloride [Klor-Con M20] 40 meq PO BID 04/29/18 Venlafaxine XR [Effexor Xr] 150 mg PO DAILY 04/29/18 Surgical History: Surgical History (Last Reviewed 11/06/17 @ 11:23 by Cheli Larson) Presence of aortocoronary bypass graft (Chronic) Z95.1 CABG X 2 CAN-LAD, SVG-CX 06/11/2014 @ [facility] per Dr. Sutton Presence of coronary angioplasty implant and graft (Chronic) Z95.5 IVUS left main 06/07/2014, PCI-FAREED Prox & Mid LAD 04/13/2015 Surgical History: arthroscopy, knee, - - CABG, ankle surgery, kidney surgery, knee replacement Psychiatric History: No pertinent psych hx Lives: [place] Smoking Status: Never smoker Alcohol: None Drugs: None - *Family History Maternal Family History: Family History (Last Reviewed 11/06/17 @ 11:23 by Cheli Larson) Father Heart disease Sister Cancer Uncle CAD (coronary artery disease) History Items: - - strokers on mothers sides Paternal Family History: Family History (Last Reviewed 11/06/17 @ 11:23 by Cheli Larson) Father Heart disease Sister Cancer Uncle CAD (coronary artery disease) History Items: Heart Disease Review of Systems Constitutional: Denies: Chills, Fever, Malaise, Weakness, Weight Change, Fatigue Eyes: Reports: Conjunctivae Inflammation. Denies: Blurred vision, Double vision, Vision Change HEENT: Denies: Head Aches, Sinus Congestion, Sinus Drainage Cardiovascular: Denies: Chest Pain, Chest Pressure, Heaviness, Light Headedness, Palpitations, Paroxysmal Noc. Dyspnea, Syncope Respiratory: Denies: Cough, Shortness of Breath, Shortness of breath at rest, Sputum production, Wheezing Gastrointestinal: Denies: Abdominal Pain, Nausea, Vomiting Genitourinary: Denies: Dysuria Musculoskeletal: Denies: Joint Pain, Joint Tenderness Skin: Denies: Rash, Wounds Neurological: Reports: Balance problems, Change in Speech, Slurred speech. Denies: Blurred vision, Double vision, Confusion, Difficulty swallowing, Focal weakness, Headaches, Incoordination, Numbness, Tingling, Tremor, Seizures Psychiatric: Denies: Anxiety, Depression, Homicidal Ideations, Suicidal Ideations Hematologic/ Lymphatic: Denies: Easy Bruising, Easy Bleeding VTE Information - Inpt Only VTE Present on Admission: No VTE Pharm Prophylaxis ordered?: Yes Patient Problems: Active and Suspected Problems (Last Reviewed 11/06/17 @ 11:23 by Cheli Larson) Slurred speech (Acute) - Physical Exam General: Alert, Oriented x3, Cooperative, No apparent distress, - - has episodes of confusion HEENT: Atraumatic, PERRLA, EOMI, Normocephalic Oral: Moist Mucosa Neck: Supple, No JVD, Negative Carotid Bruits Lungs: Clear to auscultation, Normal air movement, No rhonchi, No wheeze, No rales Cardiovascular: Regular rate, Regular Rhythm, Normal S1, Normal S2, No murmurs Abdomen: Bowel Sounds Present, Soft, Non Tender, Non-Distended, No Hepato- splenomegaly Extremities: No clubbing, No cyanosis, No edema, Capillary Refill Less than 3 Seconds, - - RLE in leg splint Skin: No rashes, No breakdown Musculoskeletal: No Tenderness to Palpation of Joints or Extremities Lymphatic: No Cervical, Supraclavicular, or Inguinal Adenopathy Neurological: Slurred Speech, Muscle tone normal, Sensory exam intact to light touch and pain, - - NIHSS -2 (dysarthria and mild aphasia) Psych/Mental Status: Normal Affect, Appropriate, Alert and oriented to time, place, person, mood and affect Vital Signs Temp Pulse Resp BP Pulse Ox 97.5 F L 77 14 167/107 H 97 04/29/18 13:32 04/29/18 16:02 04/29/18 16:02 04/29/18 16:02 04/29/18 16:02 Oxygen Delivery Method Room Air Weight: 192 lb 14.472 oz Body Mass Index (BMI) 30.2 Finger Stick Blood Glucose 100 Laboratory Tests Past 24 Hrs 04/29/18 04/29/18 04/29/18 14:18 14:18 14:18 WBC 5.2 RBC 4.23 Hgb 13.7 Hct 40.5 MCV 95.7 MCH 32.4 H MCHC 33.8 RDW 14.0 RDW Differential 47.2 H Plt Count 313 MPV 9.0 Immature Gran % (Auto) 0.200 Neut % (Auto) 56.8 Lymph % (Auto) 26.3 [place] % (Auto) 13.0 H Eos % (Auto) 3.3 Baso % (Auto) 0.4 Absolute Neuts (auto) 2.9 Absolute Lymphs (auto) 1.36 Total Counted Not Reportable PT 12.9 INR 1.0 APTT 29.8 Sodium 132 L Potassium 4.5 Chloride 97 L Carbon Dioxide 27.0 Anion Gap 8 BUN 11 Creatinine 0.90 Estim Creat Clear Calc 50.91 Est GFR (MDRD) Af Amer 78 Est GFR (MDRD) Non-Af 64 BUN/Creatinine Ratio 12.2 Glucose 84 Calcium 8.7 POC Glucose 04/29/18 13:43 POC Glucose [address] 04/29/18 13:45 IMPRESSION: Moderate atrophy. Relatively stable appearing head CT. However given clinical history recommend consideration for follow-up MRI. Electronically Signed: Roseanna Tatum MD at 14:45 EDT Tel , Service support , Assessment/Plan All Active Problems (Last Reviewed 11/06/17 @ 11:23 by Cheli Larson) Slurred speech (Acute) 77 y/o female presenting with slurred speech which started day of presentation 1. TIA * slurred speech and mild aphasia present since this morning and has worsened * NIHSS-2 * says she was told in the past she had an abnormal heart rhythm, but doesnt remember whether it was Afib or otherwise * admit to PCU with telemetry * CT head was negative for any acute intracranial pathology * MRI of the brain without contrast * MRA of the head/neck with and without contrast * check lipid panel and A1C * aspirin 325mg given in ED; continue aspirin 81mg daily. Also on plavix o./a of CABG. continue * neurology consult; 2D echo * keep NPO until she passes bedside swallow evaluation * will need 30 day event recorder upon discharge * 2. Hyponatremia: * Na is 132. Is chronic. Will monitor as patient is asymptomatic 3. Hypertension: * poorly controlled. BP in 160s. Keep BP <130/80mmHg * resume BP meds and adjust as needed to maintain BP below target range * 4. Hyperlipidemia: patient has history of hyperlipidemia but doesnt take statins as she has a severe reaction. check lipid panel 5. LEft ankle fracture: in leg splint. fall precautions. PT/OT consult DVT prophylaxis: heparin * COde status: full code. * Patient and daughter counselled about different types of code status including full code, DNRCC and DNRCCA. Patient elects to be full code. TOtal face to face time- 16 mins Code Visit OBSV E&M: 70067 Initial observation care L3 Procedures: 63647 Advncd Care Plan 30 Min
--- NOTE | 2018-04-29 17:19 | ED.VISSUMM ---
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 Mclean. Patient reports this morning at breakfast she was normal at 730. She was checked on her daughter at 8:00 and had slurred speech. She was checked again at 1130 minutes found to have a left facial droop. Upon arrival in the emergency department at approximately 130 family reports that her facial droop is much better. Her expressive aphasia is improved as well. The patient denies any numbness or weakness. States this is similar to when she had a stroke in the past. Physical Examination: Vitals: Stable. Afebrile. General: Well-nourished and well-developed. Head: Normocephalic atraumatic. Neck: Supple, no lymphadenopathy. No JVD. Nontender. Cardiovascular: Regular rate and rhythm. No murmurs. Respiratory: No respiratory distress. Clear to auscultation bilaterally. Abdominal: Soft, nontender, nondistended, normal bowel sounds. No guarding, rebound, or peritoneal signs. Back: Nontender. Extremities: Nontender, no edema. Skin: Normal color, no rash. Neurologic: Alert and oriented ?3. Cranial nerves II through XII are intact. Normal strength and sensation. NIH scale is 2 for expressive aphasia and dysarthria. Psych: Normal affect. Test Results: CT head shows chronic changes. EKG is sinus at 77 with right bundle branch block. Coags are normal. Chem-7 is more for sodium 132 and chloride 97. Is more for monocytes 13. Emergency Department Course and Treatment: Patient is not a TPA candidate given the timeframe of this. She presented to the emergency department approximately 6 hours after the onset and has improving symptoms. She rested comfortably while here. Treatment Plan: Patient was discussed with Dr. Plunkett. She will be admitted for further evaluation and treatment. Disposition: Admitted in stable condition. Impression: 1. Expressive aphasia. This note was generated with [employer] dictation software. It may contain incorrect words, spelling, and punctuation that were not noted in review of the chart prior to signing ED Disposition - Plan for ED Patient: Disposition: Acute Care Hospital [facility] Chief Complaint: Neuro S/Sx
--- NOTE | 2018-04-29 17:22 | ED.DCSUM_ITS ---
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 Mclean. Patient reports this morning at breakfast she was normal at 730. She was checked on her daughter at 8:00 and had slurred speech. She was checked again at 1130 minutes found to have a left facial droop. Upon arrival in the emergency department at approximately 130 family reports that her facial droop is much better. Her expressive aphasia is improved as well. The patient denies any numbness or weakness. States this is similar to when she had a stroke in the past. Physical Examination: Vitals: Stable. Afebrile. General: Well-nourished and well-developed. Head: Normocephalic atraumatic. Neck: Supple, no lymphadenopathy. No JVD. Nontender. Cardiovascular: Regular rate and rhythm. No murmurs. Respiratory: No respiratory distress. Clear to auscultation bilaterally. Abdominal: Soft, nontender, nondistended, normal bowel sounds. No guarding, rebound, or peritoneal signs. Back: Nontender. Extremities: Nontender, no edema. Skin: Normal color, no rash. Neurologic: Alert and oriented ?3. Cranial nerves II through XII are intact. Normal strength and sensation. NIH scale is 2 for expressive aphasia and dysarthria. Psych: Normal affect. Test Results: CT head shows chronic changes. EKG is sinus at 77 with right bundle branch block. Coags are normal. Chem-7 is more for sodium 132 and chlor [place] 97. Is more for monocytes 13. Emergency Department Course and Treatment: Patient is not a TPA candidate given the timeframe of this. She presented to the emergency department approximately 6 hours after the onset and has improving symptoms. She rested comfortably while here. Treatment Plan: Patient was discussed with Dr. Plunkett. She will be admitted for further evaluation and treatment. Disposition: Admitted in stable condition. Impression: 1. Expressive aphasia. This note was generated with [employer] dictation software. It may contain incorrect words, spelling, and punctuation that were not noted in review of the chart prior to signing ED Disposition - Plan for ED Patient: Disposition: Acute Care [facility] Chief Complaint: Neuro S/Sx
[2018-04-29 20:05] LABS: Color, Urine Yellow (Yellow); Glucose, Dipstick Normal (Normal); Ketone-Dipstick Negative (Negative); Leukocyte Esterase-Dipstick 100 /ul (Negative); Mucous, Urine 0 SEEN /hpf (<or=2+); Nitrite-Dipstick Positive (Negative); Occult Blood-Urine Negative /ul (Negative); Protein-Dipstick Negative (Negative); Red Blood Cells-Urine 0 SEEN /hpf (0-5); Specific Gravity, Urine 1.015 (1.002-1.030); Urine Bilirubin Dipstick Negative (Negative); Urine Clarity Clear (Clear); Urine Urobilinogen Normal (Normal)
[2018-04-29 20:14] LABS: Bacteria 1+ /hpf (None Seen); Squamous Epithelial Cells - UA 0-5 SEEN /hpf (5-10); White Blood Cells 10-25 SEEN /hpf (0-5)
[2018-04-29] MEDS: Heparin Injection (Vial) 5,000 UNIT/ML VIAL 5000 UNIT SC (21:51)
[2018-04-29] MEDS: ALPRAZolam 0.25 MG Tablet PO (21:51)
[2018-04-29] MEDS: 0.9% NaCl Peripheral Flush Adult/Peds IV (21:52)
[2018-04-29 22:00] LABS: Hemoglobin A1c 5.7 % (4.2-6.3)
[2018-04-30] VITALS (14 sets, daily range): BP systolic 129–161; BP diastolic 67–96; PULSE 69–77; RESP 16–18; TEMP 36.3–36.8; O2SAT 92–97; BMI 29.5
[2018-04-30] MEDS: Levothyroxine 75 MCG Tablet PO (05:25)
[2018-04-30] MEDS: Heparin Injection (Vial) 5,000 UNIT/ML VIAL 5000 UNIT SC ×3 (05:25→21:00)
[2018-04-30 06:45] LABS: Absolute Neutrophil Count 2.2 X10^3/uL (2.0-7.7); Basophil# 0.03 X10^3/uL; Basophil% 0.7 % (0-1); Eosinophil# 0.15 X10^3/uL; Eosinophils% 3.5 % (0-5); Hematocrit 38.1 % (37-47); Hemoglobin 12.7 g/dl (12.0-15.0); Lymphocyte % 32.6 % (19-41); Mean Corp Hgb Conc 33.3 g/gl (32-36); Mean Corpuscular Hgb 32.2 pg (27.0-32.0); Mean Corpuscular Volume 96.5 fL (81-99); Mean Platelet Vol. 9.2 fl (6.2-12.0); Monocyte# 0.52 X10^3/uL; Monocyte% 12.1 % (0-10); Neutrophil # 2.19 X10^3/uL (2.7-7.7); Neutrophil % 51.1 % (47-70); Platelet Count 297 K/mm3 (150-450); RBC Distribution Width CV 14.2 % (11.6-14.6); RBC Distribution Width SD 50.7 fl (35.1-43.9); Red Blood Count 3.95 M/mm3 (4.2-5.4); White Blood Count 4.3 K/mm3 (4.4-11.0)
[2018-04-30 06:59] LABS: POSITIVE COUNT NO; POSITIVE DIFFERENTIAL NO; POSITIVE MORPHOLOGY NO
[2018-04-30 07:19] LABS: Anion Gap 9 (5-15); BUN 10 mg/dL (7-18); BUN/Creat Ratio 12.6 RATIO (10-20); Calcium,Total 8.4 mg/dL (8.5-10.1); Chloride 97 mmol/L (98-107); Cholesterol 139 mg/dL (200); Creatinine, Serum 0.79 mg/dL (0.55-1.02); EST Glomerular Filtration Rate 74 mL/min (>60); Est Glom Filt Rate - Afr Amer 90 mL/min (>60); Glucose 75 mg/dL (74-106); High Density Lipoprotein 41 mg/dL; Potassium 4.4 mmol/L (3.5-5.1); Sodium Level 132 mmol/L (136-145); Triglycerides 80 mg/dL; Very Low Density Lipoprotein 16 mg/dL (5-40)
--- NOTE | 2018-04-30 08:00 | ECHOD_ITS ---
[id number] ECHO^ECHOD^Echo Complete [id number] TAG_START Cardiovascular Services Echocardiogram [address] [place], [place] [address] Ordering Physician: Pricila Plunkett TAG_ENDED TAG_START Name: MIREYA OSBORNE Study Date: 04/30/2018 01:33 PM BP: 149/89 mmHg Patient Location: [facility]^[id number]^1 BSA: 2.0 m2 : 1940 Gender: Female Height: 67 in Age: 77 yrs Weight: 188 lb History: CAD, CABG, PCI, PAF, RBBB, HLD, HTN, CVA, Rt carotid stenosis, Hypothyroid, Previously negative bubble study. TAG_ENDED Reason For Study: EMBOLI Procedure This was a 2D Doppler, Color Flow transthoracic echocardiogram. The exam was of adequate technical quality. Exam performed portable in patient room. Left Ventricle Normal LV size. Left ventricular systolic function is normal. The estimated ejection fraction is 65 %. Unable to assess diastolic dysfunction due to arrhythmia. No regional wall motion abnormalities noted. TAG_START LAX SAX 4C 2C I X - Cannot 2 - Interpret 1 - Normal Hypokinetic 3 - Akinetic 4 - Dyskinetic 5 - Aneurysmal TAG_ENDED Right Ventricle Normal RV size. Normal systolic function. Atria The left atrium is mildly enlarged. Normal right atrium. No doppler evidence for ASD. Mitral Valve There is no mitral annular calcification. Mild diffuse mitral valve thickening. Mild (1+) mitral valve insufficiency. Tricuspid Valve Normal tricuspid valve. Moderate (2+) tricuspid valve insufficiency. Right ventricular systolic pressure estimated to be 34 mmHg. Aortic Valve Trisinus/trileaflet aortic valve. Mild diffuse aortic valve thickening. Trivial aortic valve insufficiency. Pulmonic Valve The pulmonic valve is not well visualized. Great Vessels Borderline to mildly enlarged ascending aorta. Pericardium/Pleural No pericardial effusion. Medication Previously negative bubble study. MMode/2D Measurements & Calculations RVDd: 3.0 cm LVIDd: 4.1 cm FS: 41.6 % IVSd: 0.96 cm LVIDs: 2.4 cm LVPWd: 0.92 cm Ao root diam: 3.9 cm LVAd ap4: 21.2 cm2 SV(MOD-sp4): 35.5 ml LA dimension: 4.2 cm EDV(MOD-sp4): 55.7 ml EDV(sp4-el): 58.8 ml LVAs ap4: 11.7 cm2 ESV(MOD-sp4): 20.2 ml ESV(sp4-el): 20.7 ml EF(MOD-sp4): 63.8 % EF(sp4-el): 64.9 % SV(sp4-el): 38.2 ml Doppler Measurements & Calculations MV E max chadd: 82.6 cm/sec MV V2 max: 132.2 cm/sec MV dec time: 0.29 sec MV A max chadd: 120.9 cm/sec MV max P.0 mmHg MV E/A: 0.68 MV V2 mean: 83.6 cm/sec MV mean P.1 mmHg MV V2 VTI: 37.2 cm Ao V2 max: 156.5 cm/sec AI max chadd: 392.8 cm/sec LV V1 max P.9 mmHg Ao max P.8 mmHg AI max P.7 mmHg LV V1 max: 110.2 cm/sec AI dec slope: 168.8 cm/sec2 AI P1/2t: 681.6 msec TR max chadd: 277.3 cm/sec TR max P.0 mmHg Pediatric Measurements & Calculations Lat Peak E' Chadd: 8.5 cm/sec Med Peak E' Chadd: 6.3 cm/sec Interpretation Summary Left ventricular systolic function is normal. The estimated ejection fraction is 65 %. The left atrium is mildly enlarged. Mild diffuse mitral valve thickening. Mild (1+) mitral valve insufficiency. Moderate (2+) tricuspid valve insufficiency. Mild diffuse aortic valve thickening. Trivial aortic valve insufficiency. Borderline to mildly enlarged ascending aorta. Right ventricular systolic pressure estimated to be 34 mmHg. Unable to assess diastolic dysfunction due to arrhythmia. TAG_START TAG_ENDED Ordering Physician: Pricila Plunkett Referring Physician: TAWNY MERRILL Performed By: Yvonne Winslow, GURPREETCS, RVT
--- NOTE | 2018-04-30 08:00 | MRI_ITS ---
STUDY: MRA NECK WITH AND WITHOUT CONTRAST REASON FOR EXAM: Female, 77 years old. Aphasia. TECHNIQUE: 3-D egce-nl-xldste (TOF) imaging was performed in an 1.5 T MRI scanner. 9 ml of Gadavist was administered for the contrast enhanced images. Several images are limited by patient motion. COMPARISON: None. FINDINGS: RIGHT CAROTID ARTERIES: Normal right common carotid artery (CCA). There is moderate atherosclerotic plaque formation with moderate narrowing of the carotid bulb. There is mild atherosclerotic plaque formation of the origin of the right internal carotid artery with less than 50% cross sectional diameter stenosis. Normal visualized cervical portion of the right internal carotid artery. Normal origin of the right external carotid artery (ECA). LEFT CAROTID ARTERIES: Normal left common carotid artery (CCA). There is mild atherosclerotic plaque formation with minimal narrowing of the left carotid bulb. Normal origin of the left internal carotid (ICA) artery without a hemodynamically significant stenosis. Normal visualized cervical portion of the left internal carotid artery. Normal origin of the left external carotid artery (ECA). VERTEBRAL ARTERIES: Normal antegrade flow within the bilateral vertebral artery without a hemodynamically significant stenosis. MRI/MRA Neck WITH and W/O Contrast IMPRESSION: 1. Moderate atherosclerotic plaque at the origin of the right internal carotid artery with less than 50% diameter narrowing. 2. General patency of the arteries of the neck, otherwise, without evidence for dissection. Electronically Signed: Gloria Valenzuela MD at 11:49 EDT , Service support ,
--- NOTE | 2018-04-30 08:00 | MRI_ITS ---
STUDY: MRA OF THE HEAD WITHOUT CONTRAST REASON FOR EXAM: Female, 77 years old. TIA with slurred speech and aphasia. TECHNIQUE: 3-D welq-re-yfbssn (TOF) imaging was performed with MIPs. The study was performed unenhanced. COMPARISON: Prior comparable comparison studies are not available for review at this time. FINDINGS: Normal bilateral petrous carotid arteries. There is elongation and tortuosity of the right cavernous carotid artery, without a demonstrated hemodynamically significant stenosis. Normal left cavernous carotid artery with a normal supraclinoid bifurcation. Normal right A1 segments of the anterior cerebral artery. There is hypoplastic development of the left A1 segment of the anterior cerebral arteries with an atretic but intact artery. Normal intact anterior communicating artery (ACOM). Normal bilateral A2 segments of the anterior cerebral arteries. There is irregularity of the right M1 and M2 branches with minimal luminal narrowing, suggesting atherosclerotic plaque formation, without an occlusion. There is irregularity of the left M1 branch with minimal luminal narrowing, suggesting atherosclerotic plaque formation, without an occlusion. There appear to be hemodynamically significant stenoses of one of the left-sided M2 branches. There is non-visualization of the right posterior communicating artery (PCOM). There is a persistent origin of the left posterior cerebral artery with absence of the P1 segment of the left posterior cerebral artery. There is a small atretic right vertebral artery with a dominant left vertebral artery. Normal basilar artery with a normal basilar bifurcation. The visualized bilateral superior cerebellar (SCA) arteries are normal. There is absence of the left P1 segment of the posterior cerebral arteries with a normal right P1 segment. Normal visualized bilateral P2 and P3 segments of the posterior cerebral arteries. There is no demonstrated aneurysm of the k[place] of [place]. There is no major vessel occlusion or hemodynamically significant stenosis. There are moderate involutional changes of the brain. MRI/MRA Head ONLY without Contrast IMPRESSION: 1. Hemodynamically significant stenosis of the left M2 branch. 2. No MRA evidence for aneurysm. Electronically Signed: Gloria Valenzuela MD at 11:41 EDT , Service support ,
--- NOTE | 2018-04-30 08:00 | MRI_ITS ---
STUDY: MRI BRAIN WITHOUT CONTRAST REASON FOR EXAM: Female, 77 years old. Aphasia and slurred speech. TECHNIQUE: Standardized multiplanar fat and water weighted pulse sequences were obtained. COMPARISON: CT of the head dated April 29, 2018. FINDINGS: There is mild cerebral atrophy with widening of the extra-axial spaces and ventricular dilatation. There are multiple white matter hyperintensities, distributed throughout the deep white matter tracts of the cerebral hemispheres, consistent with moderate chronic white matter ischemic changes. There is confluent periventricular hyperintensity cloaking the lateral ventricles, consistent with periventricular leukoaraiosis. There appear to be tiny foci of restricted diffusion within the left paramedian javi and medulla suggesting possible sequela of acute infarcts. This is best seen on diffusion weighted imaging. The abnormalities are on images #11, 9 and 8. There are prominent perivascular spaces (PVS) involving the basal ganglia. There is abnormal signal in the right thalamus possibly related to previous ischemia. There is no extra-axial fluid accumulation. Normal flow voids within the major intracranial circulation suggesting patency by spin echo criteria. There is enlargement of the sella turcica with increased CSF within the sella and flattening of the pituitary gland consistent with an empty sellar syndrome. Normal infundibular stalk, hypothalamus, and optic chiasm. Normal tectal plate and pineal gland. There are chronic white matter ischemic changes of the javi. The midbrain and medulla are otherwise normal. There are multiple small areas of encephalomalacia in the cerebellum and probably represent small old infarcts. There are large basal cisterns. Normal bilateral temporal bones. Normal bilateral internal auditory canals. There are bilateral ocular lens implants with otherwise normal intraorbital contents. Normal visualized paranasal sinuses. Normal calvarium and skull base. Normal visualized soft tissue structures. Normal visualized upper cervical spine. MRI/Brain without Contrast IMPRESSION: 1. Involutional changes of the brain, as described above. 2. Apparent tiny acute infarcts involving the javi and midbrain. N.B. : The above information has been verbally conveyed by Gloria Valenzuela MD to Gregorio Norman RN, on 04/30/2018 11:43:33 (ET). Electronically Signed: Gloria Valenzuela MD at 11:31 EDT , Service support ,
--- NOTE | 2018-04-30 08:46 | CASEMGMT ---
Addendum entered by Maryjo Gomez 04/30/18 11:18: SW spoke with patient and confirmed her plan is to go to [facility] 4th floor rehab unit at d/c. Maryjo MARCUM Original Note: SW received a call from Sanna in rehab. She said the patient was supposed to be coming to the rehab unit so she could get more therapy. She said they will take patient at d/c. MARANDA will check with patient and family and confirm this plan. Maryjo MARCUM
--- NOTE | 2018-04-30 10:01 | PCM.CONS.GEN ---
Reason for Consult Date of Consultation: 04/30/18 Reason for Consultation: CVA History of Present Illness: The patient is a 77 year old F who fell in her bathroom approximately 1 month ago, has had pain and was ultimately diagnosed with a left ankle fracture which was treated nonoperatively. She may have seen Dr. Murphy for this however the family is not clear. She was having difficulty at home and was admitted to a local intermediate for convalescence. Yesterday at about 8 AM 1 of her daughters noted some slurred speech and she was brought to the hospital. She denies any other symptoms and slurred speech. There is some emotionality today but she and her daughter indicates that this is not new and is due to some intercurrent stress due to her illness as well as her 's illness. She says she has a history of borderline diabetes but does not know her sugars, her blood pressures have been only mildly elevated at 130-150 systolic, and she has untreated obstructive sleep apnea last sleep study was about 4 years ago. She denies any weakness otherwise, no double vision, blurred vision, or pain. Denies any triggers otherwise. per admit h&p:The patient is a 77 year old F with a PMH of HTN who was admitted through the ED on 04/29/18 with a complaint of slurred speech which started this morning. Patient is currently a patient in a SNF fo/a of right ankle fracture. She noted that she had slurring of her speech this morning. She couldnt say the exact time she noticed it, but whilst eating breakfast this morning, it wasnt present. Slurring of speech worsened so her daughter decided to bring her in to the hospital today. She had a mild headache yesterday, but denied any fever, chills, palpitations, SOB, lightheadedness, dizziness, ringing in her ears, abdominal pain, diarrhea or vomiting. EKG done in the ED showed RBBB and no acute ST changes. CT head was negative for any acute intracranial pathology. Labs were significant for sodium of 132, but was otherwise unremarkable. She is being admitted for stroke workup Past Medical History Past Medical History (Chronic Problems): Chronic Problems (Last Reviewed 04/30/18 @ 10:02 by Moises Angelo MD) Hypokalemia (Chronic) Presence of aortocoronary bypass graft (Chronic) CABG X 2 CAN-LAD, SVG-CX 06/11/2014 @ [facility] per Dr. Sutton Atherosclerotic heart disease of [place] coronary artery without angina pectoris (Chronic) Presence of coronary angioplasty implant and graft (Chronic) IVUS left main 06/07/2014, PCI-FAREED Prox & Mid LAD 04/13/2015 Paroxysmal atrial fibrillation (Chronic) Dyspnea on exertion (Chronic) Dizziness (Chronic) Near syncope (Chronic) Stenosis of right carotid artery (Chronic) Right bundle branch block (Chronic) Anxiety (Chronic) Hyperlipidemia (Chronic) Hypertension (Chronic) Hypothyroidism (Chronic) CVA (cerebral vascular accident) (Chronic) MRI demonstrated an acute infarct in the right thalamus and left parietal region. 01/2017 Medical History: Medical History (Last Reviewed 04/30/18 @ 10:02 by Moises Angelo MD) Hypokalemia (Chronic) E87.6 Atherosclerotic heart disease of [place] coronary artery without angina pectoris (Chronic) I25.10 Paroxysmal atrial fibrillation (Chronic) I48.0 Stenosis of right carotid artery (Chronic) I65.21 Right bundle branch block (Chronic) I45.10 Hyperlipidemia (Chronic) E78.5 Hypertension (Chronic) I10 Hypothyroidism (Chronic) E03.9 CVA (cerebral vascular accident) (Chronic) I63.9 MRI demonstrated an acute infarct in the right thalamus and left parietal region. 01/2017 Allergies atorvastatin Allergy (Verified 11/06/17 11:23) Unknown codeine Allergy (Verified 11/06/17 11:23) Unknown levofloxacin [From Levaquin] Allergy (Verified 11/06/17 11:23) Unknown Penicillins Allergy (Verified 11/06/17 11:23) Unknown pravastatin Allergy (Verified 11/06/17 11:23) myalgia Sulfa (Sulfonamide Antibiotics) Allergy (Verified 11/06/17 11:23) Unknown Home Medications: Ambulatory Orders Medication Instructions Recorded Levothyroxine [Synthroid] 75 mcg PO DAILY 06/07/14 ALPRAZolam [Xanax] 0.25 mg PO DAILY 04/29/18 Amlodipine Besylate [Norvasc] 2.5 mg PO DAILY 04/29/18 Bupropion HCl [Bupropion Xl] 150 mg PO DAILY 04/29/18 Clopidogrel Bisulfate [Plavix] 75 mg PO DAILY 04/29/18 Losartan Potassium [Cozaar] 100 mg PO DAILY 04/29/18 Potassium Chloride [Klor-Con M20] 40 meq PO BID 04/29/18 Venlafaxine XR [Effexor Xr] 150 mg PO DAILY 04/29/18 Surgical History: Surgical History (Last Reviewed 04/30/18 @ 10:02 by Moises Angelo MD) Presence of aortocoronary bypass graft (Chronic) Z95.1 CABG X 2 CAN-LAD, SVG-CX 06/11/2014 @ [facility] per Dr. Sutton Presence of coronary angioplasty implant and graft (Chronic) Z95.5 IVUS left main 06/07/2014, PCI-FAREED Prox & Mid LAD 04/13/2015 Surgical History: arthroscopy, knee, - - CABG, ankle surgery, kidney surgery, knee replacement Psychiatric History: No pertinent psych hx Lives: Long Term Smoking Status: Never smoker Tobacco Use: Non-smoker Alcohol: None Drugs: None - *Family History Maternal Family History: Family History (Last Reviewed 04/30/18 @ 10:03 by Moises Angelo MD) Father Heart disease Sister Cancer Uncle CAD (coronary artery disease) History Items: - - strokers on mothers sides Paternal Family History: Family History (Last Reviewed 04/30/18 @ 10:03 by Moises Angelo MD) Father Heart disease Sister Cancer Uncle CAD (coronary artery disease) History Items: Heart Disease Review of Systems Constitutional: Denies: Chills, Fever, Weight Change HEENT: Denies: Head Aches, Sinus Congestion, Sinus Drainage Cardiovascular: Denies: Chest Pain, Palpitations Respiratory: Denies: Cough, Shortness of breath at rest, Sputum production Gastrointestinal: Denies: Abdominal Pain, Nausea, Vomiting Genitourinary: Denies: Dysuria Musculoskeletal: Denies: Joint Pain, Joint Tenderness Skin: Denies: Rash, Wounds Neurological: Reports: Change in Speech, Slurred speech. Denies: Blurred vision, Double vision, Confusion, Difficulty swallowing, Focal weakness, Headaches, Incoordination, Numbness, Tingling, Tremor, Seizures Psychiatric: Denies: Anxiety, Depression, Homicidal Ideations, Suicidal Ideations Hematologic/ Lymphatic: Denies: Easy Bruising, Easy Bleeding Patient Problems: Active and Suspected Problems (Last Reviewed 04/30/18 @ 10:02 by Moises Angelo MD) Slurred speech (Acute) - Physical Exam General: Alert, Oriented x3, Cooperative Neurological: - - Neurologically there is no facial asymmetry however she does have dysarthria which is moderate. There is no aphasia. There is no sensory deficit, cranial nerves are otherwise intact. There is very mild right upper extremity weakness and discoordination to forearm orbit testing. The patient also has severe loss of proprioception in her feet bilaterally consistent with idiopathic peripheral neuropathy Psych/Mental Status: Normal Affect Vital Signs Temp Pulse Resp BP Pulse Ox 36.6 C 72 18 153/88 H 95 04/30/18 08:06 04/30/18 08:06 04/30/18 08:06 04/30/18 08:06 04/30/18 08:06 Oxygen Delivery Method Room Air Weight: 85.4 kg Body Mass Index (BMI) 29.5 Finger Stick Blood Glucose 100 Intake and Output for Last 24 Hours 04/28/18 04/29/18 04/30/18 23:59 23:59 23:59 Intake Total 120 / 120 600 / 600 Balance 120 / 120 600 / 600 Laboratory Tests Past 24 Hrs 04/29/18 04/29/18 04/29/18 14:18 14:18 14:18 WBC 5.2 RBC 4.23 Hgb 13.7 Hct 40.5 MCV 95.7 MCH 32.4 H MCHC 33.8 RDW 14.0 RDW Differential 47.2 H Plt Count 313 MPV 9.0 Immature Gran % (Auto) 0.200 Neut % (Auto) 56.8 Lymph % (Auto) 26.3 [place] % (Auto) 13.0 H Eos % (Auto) 3.3 Baso % (Auto) 0.4 Absolute Neuts (auto) 2.9 Absolute Lymphs (auto) 1.36 Total Counted Not Reportable PT 12.9 INR 1.0 APTT 29.8 Sodium 132 L Potassium 4.5 Chloride 97 L Carbon Dioxide 27.0 Anion Gap 8 BUN 11 Creatinine 0.90 Estim Creat Clear Calc 50.91 Est GFR (MDRD) Af Amer 78 Est GFR (MDRD) Non-Af 64 BUN/Creatinine Ratio 12.2 Glucose 84 Hemoglobin A1c Calcium 8.7 Triglycerides Cholesterol LDL Cholesterol VLDL Cholesterol HDL Cholesterol Urine Color Urine Clarity Urine pH Ur Specific [place] Urine Protein Urine Glucose (UA) Urine Ketones Urine Occult Blood Urine Nitrite Urine Bilirubin Urine Urobilinogen Ur Leukocyte Esterase Urine RBC Urine WBC Ur Squamous Epith Cells Urine Bacteria Urine Mucus 04/29/18 04/29/18 04/30/18 14:18 19:23 05:35 WBC 4.3 L RBC 3.95 L Hgb 12.7 Hct 38.1 MCV 96.5 MCH 32.2 H MCHC 33.3 RDW 14.2 RDW Differential 50.7 H Plt Count 297 MPV 9.2 Immature Gran % (Auto) 0.000 Neut % (Auto) 51.1 Lymph % (Auto) 32.6 [place] % (Auto) 12.1 H Eos % (Auto) 3.5 Baso % (Auto) 0.7 Absolute Neuts (auto) 2.2 Absolute Lymphs (auto) 1.40 Total Counted Not Reportable PT INR APTT Sodium Potassium Chloride Carbon Dioxide Anion Gap BUN Creatinine Estim Creat Clear Calc Est GFR (MDRD) Af Amer Est GFR (MDRD) Non-Af BUN/Creatinine Ratio Glucose Hemoglobin A1c 5.7 Calcium Triglycerides Cholesterol LDL Cholesterol VLDL Cholesterol HDL Cholesterol Urine Color Yellow Urine Clarity Clear Urine pH 6.0 Ur Specific [place] 1.015 Urine Protein Negative Urine Glucose (UA) Normal Urine Ketones Negative Urine Occult Blood Negative Urine Nitrite Positive H Urine Bilirubin Negative Urine Urobilinogen Normal Ur Leukocyte Esterase 100 H Urine RBC 0 SEEN Urine WBC 10-25 SEEN Ur Squamous Epith Cells 0-5 SEEN Urine Bacteria 1+ Urine Mucus 0 SEEN 04/30/18 05:35 WBC RBC Hgb Hct MCV MCH MCHC RDW RDW Differential Plt Count MPV Immature Gran % (Auto) Neut % (Auto) Lymph % (Auto) [place] % (Auto) Eos % (Auto) Baso % (Auto) Absolute Neuts (auto) Absolute Lymphs (auto) Total Counted PT INR APTT Sodium 132 L Potassium 4.4 Chloride 97 L Carbon Dioxide 26.0 Anion Gap 9 BUN 10 Creatinine 0.79 Estim Creat Clear Calc 44.10 Est GFR (MDRD) Af Amer 90 Est GFR (MDRD) Non-Af 74 BUN/Creatinine Ratio 12.6 Glucose 75 Hemoglobin A1c Calcium 8.4 L Triglycerides 80 Cholesterol 139 LDL Cholesterol 82 VLDL Cholesterol 16 HDL Cholesterol 41 Urine Color Urine Clarity Urine pH Ur Specific [place] Urine Protein Urine Glucose (UA) Urine Ketones Urine Occult Blood Urine Nitrite Urine Bilirubin Urine Urobilinogen Ur Leukocyte Esterase Urine RBC Urine WBC Ur Squamous Epith Cells Urine Bacteria Urine Mucus POC Glucose 04/29/18 13:43 POC Glucose 100 Current Home Med List Medication Instructions Recorded Confirmed Type Levothyroxine [Synthroid] 75 mcg PO DAILY 06/07/14 04/29/18 History ALPRAZolam [Xanax] 0.25 mg PO DAILY 04/29/18 04/29/18 History Amlodipine Besylate [Norvasc] 2.5 mg PO DAILY 04/29/18 04/29/18 History Bupropion HCl [Bupropion Xl] 150 mg PO DAILY 04/29/18 04/29/18 History Clopidogrel Bisulfate [Plavix] 75 mg PO DAILY 04/29/18 04/29/18 History Losartan Potassium [Cozaar] 100 mg PO DAILY 04/29/18 04/29/18 History Potassium Chloride [Klor-Con M20] 40 meq PO BID 04/29/18 04/29/18 History Venlafaxine XR [Effexor Xr] 150 mg PO DAILY 04/29/18 04/29/18 History Hemoglobin A1c is 5.7 Current Medications Alprazolam 0.25 mg 04/30/18 22:00 04/29/18 21:51 Xanax PO 0.25 mg QHS MELODY Administration Amlodipine Besylate 2.5 mg 04/30/18 10:00 Norvasc PO DAILY [facility] Aspirin 81 mg 04/30/18 08:00 04/30/18 10:04 Aspirin, Baby PO 81 mg DAILY@0800 [facility] Administration Bupropion HCl 150 mg 04/30/18 10:00 Wellbutrin Xl PO DAILY [facility] Clopidogrel Bisulfate 75 mg 04/30/18 10:00 Plavix PO DAILY [facility] Heparin Sodium (Porcine) 5,000 unit 04/29/18 22:00 04/30/18 05:25 Heparin Na SC 5,000 unit Q8 [facility] Administration Levothyroxine Sodium 75 mcg 04/30/18 06:00 04/30/18 05:25 Synthroid PO 75 mcg DAILY@0600 [facility] Administration Losartan Potassium 100 mg 04/30/18 10:00 Cozaar PO DAILY [facility] Magnesium Hydroxide 30 ml 04/29/18 16:35 Milk Of Magnesia PO DAILY PRN PRN Constipation Potassium Chloride 40 meq 04/29/18 19:00 04/29/18 21:51 K-Dur PO 40 meq BIDCM MELODY Administration Venlafaxine HCl 150 mg 04/30/18 10:00 Effexor Xr PO DAILY [facility] MRI and MRA reviewed. She does have an acute infarct in her left javi. The MRA looks without significant stenosis. There is some mild stenosis in the left proximal internal carotid but this does not appear to reach significance. Assessment/Plan All Active Problems (Last Reviewed 04/30/18 @ 10:02 by Moises Angelo MD) Slurred speech (Acute) Acute left pontine infarct complicated by history of falls likely due to severe peripheral neuropathy likely idiopathic: Echocardiogram PT/OT/speech therapy Continue aspirin, Plavix Will need repeat outpatient sleep study Allow blood pressures to rise, treat if greater than 200 systolic until 05/04/18 Will need rehab when workup complete as previously planned.
[2018-04-30] MEDS: Aspirin 81 MG TAB.CHEW PO (10:04)
--- NOTE | 2018-04-30 10:07 | CON.PCM_ITS ---
Reason for Consult Date of Consultation: 04/30/18 Reason for Consultation: CVA History of Present Illness: The patient is a 77 year old F who fell in her bathroom approximately 1 month ago, has had pain and was ultimately diagnosed with a left ankle fracture which was treated nonoperatively. She may have seen Dr. Murphy for this however the family is not clear. She was having difficulty at home and was admitted to a local jail for convalescence. Yesterday at about 8 AM 1 of her daughters noted some slurred speech and she was brought to the hospital. She denies any other symptoms and slurred speech. There is some emotionality today but she and her daughter indicates that this is not new and is due to some intercurrent stress due to her illness as well as her 's illness. She says she has a history of borderline diabetes but does not know her sugars, her blood pressures have been only mildly elevated at 130-150 systolic, and she has untreated obstructive sleep apnea last sleep study was about 4 years ago. She denies any weakness otherwise, no double vision, blurred vision, or pain. Denies any triggers otherwise. per admit h&p:The patient is a 77 year old F with a PMH of HTN who was admitted through the ED on 04/29/18 with a complaint of slurred speech which started this morning. Patient is currently a patient in a SNF fo/a of right ankle fracture. She noted that she had slurring of her speech this morning. She couldnt say the exact time she noticed it, but whilst eating breakfast this morning, it wasnt present. Slurring of speech worsened so her daughter decided to bring her in to the hospital today. She had a mild headache yesterday, but denied any fever, chills, palpitations, SOB, lightheadedness, dizziness, ringing in her ears, abdominal pain, diarrhea or vomiting. EKG done in the ED showed RBBB and no acute ST changes. CT head was negative for any acute intracranial pathology. Labs were significant for sodium of 132, but was otherwise unremarkable. She is being admitted for stroke workup Past Medical History Past Medical History (Chronic Problems): Chronic Problems (Last Reviewed 04/30/18 @ 10:02 by Moises Angelo MD) Hypokalemia (Chronic) Presence of aortocoronary bypass graft (Chronic) CABG X 2 CAN-LAD, SVG-CX 06/11/2014 @ [facility] per Dr. 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 01/2017 Allergies atorvastatin Allergy (Verified 11/06/17 11:23) Unknown codeine Allergy (Verified 11/06/17 11:23) Unknown levofloxacin [From Levaquin] Allergy (Verified 11/06/17 11:23) Unknown Penicillins Allergy (Verified 11/06/17 11:23) Unknown pravastatin Allergy (Verified 11/06/17 11:23) myalgia Sulfa (Sulfonamide Antibiotics) Allergy (Verified 11/06/17 11:23) Unknown Home Medications: Ambulatory Orders Medication Instructions Recorded Levothyroxine [Synthroid] 75 mcg PO DAILY 06/07/14 ALPRAZolam [Xanax] 0.25 mg PO DAILY 04/29/18 Amlodipine Besylate [Norvasc] 2.5 mg PO DAILY 04/29/18 Bupropion HCl [Bupropion Xl] 150 mg PO DAILY 04/29/18 Clopidogrel Bisulfate [Plavix] 75 mg PO DAILY 04/29/18 Losartan Potassium [Cozaar] 100 mg PO DAILY 04/29/18 Potassium Chloride [Klor-Con M20] 40 meq PO BID 04/29/18 Venlafaxine XR [Effexor Xr] 150 mg PO DAILY 04/29/18 Surgical History: Surgical History (Last Reviewed 04/30/18 @ 10:02 by Moises Angelo MD) Presence of aortocoronary bypass graft (Chronic) Z95.1 CABG X 2 CAN-LAD, SVG-CX 06/11/2014 @ [facility] per Dr. Sutton Presence of coronary angioplasty implant and graft (Chronic) Z95.5 IVUS left main 06/07/2014, PCI-FAREED Prox & Mid LAD 04/13/2015 Surgical History: arthroscopy, knee, - - CABG, ankle surgery, kidney surgery, knee replacement Psychiatric History: No pertinent psych hx Lives: Retirement Smoking Status: Never smoker Tobacco Use: Non-smoker Alcohol: None Drugs: None - *Family History Maternal Family History: Family History (Last Reviewed 04/30/18 @ 10:03 by Moises Angelo MD) Father Heart disease Sister Cancer Uncle CAD (coronary artery disease) History Items: - - strokers on mothers sides Paternal Family History: Family History (Last Reviewed 04/30/18 @ 10:03 by Moises Angelo MD) Father Heart disease Sister Cancer Uncle CAD (coronary artery disease) History Items: Heart Disease Review of Systems Constitutional: Denies: Chills, Fever, Weight Change HEENT: Denies: Head Aches, Sinus Congestion, Sinus Drainage Cardiovascular: Denies: Chest Pain, Palpitations Respiratory: Denies: Cough, Shortness of breath at rest, Sputum production Gastrointestinal: Denies: Abdominal Pain, Nausea, Vomiting Genitourinary: Denies: Dysuria Musculoskeletal: Denies: Joint Pain, Joint Tenderness Skin: Denies: Rash, Wounds Neurological: Reports: Change in Speech, Slurred speech. Denies: Blurred vision, Double vision, Confusion, Difficulty swallowing, Focal weakness, Headaches, Incoordination, Numbness, Tingling, Tremor, Seizures Psychiatric: Denies: Anxiety, Depression, Homicidal Ideations, Suicidal Ideations Hematologic/ Lymphatic: Denies: Easy Bruising, Easy Bleeding Patient Problems: Active and Suspected Problems (Last Reviewed 04/30/18 @ 10:02 by Moises Angelo MD) Slurred speech (Acute) - Physical Exam General: Alert, Oriented x3, Cooperative Neurological: - - Neurologically there is no facial asymmetry however she does have dysarthria which is moderate. There is no aphasia. There is no sensory deficit, cranial nerves are otherwise intact. There is very mild right upper extremity weakness and discoordination to forearm orbit testing. The patient also has severe loss of proprioception in her feet bilaterally consistent with idiopathic peripheral neuropathy Psych/Mental Status: Normal Affect Vital Signs Temp Pulse Resp BP Pulse Ox 36.6 C 72 18 153/88 H 95 04/30/18 08:06 04/30/18 08:06 04/30/18 08:06 04/30/18 08:06 04/30/18 08:06 Oxygen Delivery Method Room Air Weight: 85.4 kg Body Mass Index (BMI) 29.5 Finger Stick Blood Glucose 100 Intake and Output for Last 24 Hours 04/28/18 04/29/18 04/30/18 23:59 23:59 23:59 Intake Total 120 / 120 600 / 600 Balance 120 / 120 600 / 600 Laboratory Tests Past 24 Hrs 04/29/18 04/29/18 04/29/18 14:18 14:18 14:18 WBC 5.2 RBC 4.23 Hgb 13.7 Hct 40.5 MCV 95.7 MCH 32.4 H MCHC 33.8 RDW 14.0 RDW Differential 47.2 H Plt Count 313 MPV 9.0 Immature Gran % (Auto) 0.200 Neut % (Auto) 56.8 Lymph % (Auto) 26.3 Maries % (Auto) 13.0 H Eos % (Auto) 3.3 Baso % (Auto) 0.4 Absolute Neuts (auto) 2.9 Absolute Lymphs (auto) 1.36 Total Counted Not Reportable PT 12.9 INR 1.0 APTT 29.8 Sodium 132 L Potassium 4.5 Chloride 97 L Carbon Dioxide 27.0 Anion Gap 8 BUN 11 Creatinine 0.90 Estim Creat Clear Calc 50.91 Est GFR (MDRD) Af Amer 78 Est GFR (MDRD) Non-Af 64 BUN/Creatinine Ratio 12.2 Glucose 84 Hemoglobin A1c Calcium 8.7 Triglycerides Cholesterol LDL Cholesterol VLDL Cholesterol HDL Cholesterol Urine Color Urine Clarity Urine pH Ur Specific [place] Urine Protein Urine Glucose (UA) Urine Ketones Urine Occult Blood Urine Nitrite Urine Bilirubin Urine Urobilinogen Ur Leukocyte Esterase Urine RBC Urine WBC Ur Squamous Epith Cells Urine Bacteria Urine Mucus 04/29/18 04/29/18 04/30/18 14:18 19:23 05:35 WBC 4.3 L RBC 3.95 L Hgb 12.7 Hct 38.1 MCV 96.5 MCH 32.2 H MCHC 33.3 RDW 14.2 RDW Differential 50.7 H Plt Count 297 MPV 9.2 Immature Gran % (Auto) 0.000 Neut % (Auto) 51.1 Lymph % (Auto) 32.6 Maries % (Auto) 12.1 H Eos % (Auto) 3.5 Baso % (Auto) 0.7 Absolute Neuts (auto) 2.2 Absolute Lymphs (auto) 1.40 Total Counted Not Reportable PT INR APTT Sodium Potassium Chloride Carbon Dioxide Anion Gap BUN Creatinine Estim Creat Clear Calc Est GFR (MDRD) Af Amer Est GFR (MDRD) Non-Af BUN/Creatinine Ratio Glucose Hemoglobin A1c 5.7 Calcium Triglycerides Cholesterol LDL Cholesterol VLDL Cholesterol HDL Cholesterol Urine Color Yellow Urine Clarity Clear Urine pH 6.0 Ur Specific [place] 1.015 Urine Protein Negative Urine Glucose (UA) Normal Urine Ketones Negative Urine Occult Blood Negative Urine Nitrite Positive H Urine Bilirubin Negative Urine Urobilinogen Normal Ur Leukocyte Esterase 100 H Urine RBC 0 SEEN Urine WBC 10-25 SEEN Ur Squamous Epith Cells 0-5 SEEN Urine Bacteria 1+ Urine Mucus 0 SEEN 04/30/18 05:35 WBC RBC Hgb Hct MCV MCH MCHC RDW RDW Differential Plt Count MPV Immature Gran % (Auto) Neut % (Auto) Lymph % (Auto) Maries % (Auto) Eos % (Auto) Baso % (Auto) Absolute Neuts (auto) Absolute Lymphs (auto) Total Counted PT INR APTT Sodium 132 L Potassium 4.4 Chloride 97 L Carbon Dioxide 26.0 Anion Gap 9 BUN 10 Creatinine 0.79 Estim Creat Clear Calc 44.10 Est GFR (MDRD) Af Amer 90 Est GFR (MDRD) Non-Af 74 BUN/Creatinine Ratio 12.6 Glucose 75 Hemoglobin A1c Calcium 8.4 L Triglycerides 80 Cholesterol 139 LDL Cholesterol 82 VLDL Cholesterol 16 HDL Cholesterol 41 Urine Color Urine Clarity Urine pH Ur Specific [place] Urine Protein Urine Glucose (UA) Urine Ketones Urine Occult Blood Urine Nitrite Urine Bilirubin Urine Urobilinogen Ur Leukocyte Esterase Urine RBC Urine WBC Ur Squamous Epith Cells Urine Bacteria Urine Mucus POC Glucose 04/29/18 13:43 POC Glucose 100 Current Home Med List Medication Instructions Recorded Confirmed Type Levothyroxine [Synthroid] 75 mcg PO DAILY 06/07/14 04/29/18 History ALPRAZolam [Xanax] 0.25 mg PO DAILY 04/29/18 04/29/18 History Amlodipine Besylate [Norvasc] 2.5 mg PO DAILY 04/29/18 04/29/18 History Bupropion HCl [Bupropion Xl] 150 mg PO DAILY 04/29/18 04/29/18 History Clopidogrel Bisulfate [Plavix] 75 mg PO DAILY 04/29/18 04/29/18 History Losartan Potassium [Cozaar] 100 mg PO DAILY 04/29/18 04/29/18 History Potassium Chloride [Klor-Con M20] 40 meq PO BID 04/29/18 04/29/18 History Venlafaxine XR [Effexor Xr] 150 mg PO DAILY 04/29/18 04/29/18 History Hemoglobin A1c is 5.7 Current Medications Alprazolam 0.25 mg 04/30/18 22:00 04/29/18 21:51 Xanax PO 0.25 mg QHS MELODY Administration Amlodipine Besylate 2.5 mg 04/30/18 10:00 Norvasc PO DAILY [facility] Aspirin 81 mg 04/30/18 08:00 04/30/18 10:04 Aspirin, Baby PO 81 mg DAILY@0800 [facility] Administration Bupropion HCl 150 mg 04/30/18 10:00 Wellbutrin Xl PO DAILY [facility] Clopidogrel Bisulfate 75 mg 04/30/18 10:00 Plavix PO DAILY [facility] Heparin Sodium (Porcine) 5,000 unit 04/29/18 22:00 04/30/18 05:25 Heparin Na SC 5,000 unit Q8 [facility] Administration Levothyroxine Sodium 75 mcg 04/30/18 06:00 04/30/18 05:25 Synthroid PO 75 mcg DAILY@0600 [facility] Administration Losartan Potassium 100 mg 04/30/18 10:00 Cozaar PO DAILY [facility] Magnesium Hydroxide 30 ml 04/29/18 16:35 Milk Of Magnesia PO DAILY PRN PRN Constipation Potassium Chloride 40 meq 04/29/18 19:00 04/29/18 21:51 K-Dur PO 40 meq BIDCM MELODY Administration Venlafaxine HCl 150 mg 04/30/18 10:00 Effexor Xr PO DAILY M[facility] MRI and MRA reviewed. She does have an acute infarct in her left javi. The MRA looks without significant stenosis. There is some mild stenosis in the left proximal internal carotid but this does not appear to reach significance. Assessment/Plan All Active Problems (Last Reviewed 04/30/18 @ 10:02 by Moises Angelo MD) Slurred speech (Acute) Acute left pontine infarct complicated by history of falls likely due to severe peripheral neuropathy likely idiopathic: * Echocardiogram * PT/OT/speech therapy * Continue aspirin, Plavix * Will need repeat outpatient sleep study * Allow blood pressures to rise, treat if greater than 200 systolic until 05/04/18 * Will need rehab when workup complete as previously planned.
[2018-04-30] MEDS: amLODIPine 2.5 MG Tablet PO (10:10)
[2018-04-30] MEDS: Losartan Potassium 100 MG Tablet PO (10:11)
[2018-04-30] MEDS: buPROPion (XL) 150 MG TABLET.XL PO (10:11)
[2018-04-30] MEDS: Clopidogrel Bisulfate 75 MG Tablet PO (10:11)
[2018-04-30] MEDS: Venlafaxine XR 150 MG Capsule PO (10:11)
[2018-04-30] MEDS: 0.9% Normal Saline 1,000 ML 100 ML IV (10:28)
--- NOTE | 2018-04-30 11:54 | DCINST_ITS ---
- Discharge Diagnoses Current Active Problems: Current Active and Chronic Problems (Last Reviewed 04/30/18 @ 10:02 by Moises Angelo MD) Slurred speech (Acute) You will use the following diet at home:: Cardiac Discharge Activity: Return to Normal Activity Call your doctor if you observe: Numbness or Tingling, Shortness of breath, Dizziness, Fainting spells, Chest pain Allergies/Adverse Reactions: Allergies atorvastatin Allergy (Verified 11/06/17 11:23) Unknown codeine Allergy (Verified 11/06/17 11:23) Unknown levofloxacin [From Levaquin] Allergy (Verified 11/06/17 11:23) Unknown Penicillins Allergy (Verified 11/06/17 11:23) Unknown pravastatin Allergy (Verified 11/06/17 11:23) myalgia Sulfa (Sulfonamide Antibiotics) Allergy (Verified 11/06/17 11:23) Unknown Medications to take at Discharge Levothyroxine [Synthroid] 75 mcg PO DAILY 06/07/14 ALPRAZolam [Xanax] 0.25 mg PO DAILY 04/29/18 Amlodipine Besylate [Norvasc] 2.5 mg PO DAILY 04/29/18 Bupropion HCl [Bupropion Xl] 150 mg PO DAILY 04/29/18 Clopidogrel Bisulfate [Plavix] 75 mg PO DAILY 04/29/18 Losartan Potassium [Cozaar] 100 mg PO DAILY 04/29/18 Potassium Chloride [Klor-Con M20] 40 meq PO BID 04/29/18 Venlafaxine XR [Effexor Xr] 150 mg PO DAILY 04/29/18 Aspirin [Aspirin, Baby] 81 mg PO DAILY@0800 tab.chew 04/30/18 Primary Care Physician: Marisol Casas DO [Primary Care Provider] - Please follow up with your Primary Care Physician in: 1 Week Test Results: Test results from this visit will be discussed in further detail at your follow- up appointment, if applicable. Please Follow Up With: Moises Angelo MD When: 1-2 Weeks Proposed Discharge Date: 04/30/18
--- NOTE | 2018-04-30 13:03 | DS.PCM_ITS ---
<Ruby Arnold - Last Filed: 05/01/18 11:47> Discharge Date and Diagnosis Date of Admission: 04/29/18 Date of Discharge: 05/01/18 - Primary Discharge Diagnosis Active and Suspected Problems (Last Reviewed 04/30/18 @ 10:02 by Moises Angelo MD) 1. Acute left pontine infarct 2. Chronic hyponatremia 3. Hypertension 4. Hyperlipidemia 5. Recent left ankle fracture - Secondary Discharge Diagnosis Chronic Problems (Last Reviewed 04/30/18 @ 10:02 by Moises Angelo MD) Hypokalemia (Chronic) Presence of aortocoronary bypass graft (Chronic) CABG X 2 CAN-LAD, SVG-CX 06/11/2014 @ [facility] per Dr. Sutton Atherosclerotic heart disease of [place] coronary artery without angina pectoris (Chronic) Presence of coronary angioplasty implant and graft (Chronic) IVUS left main 06/07/2014, PCI-FAREED Prox & Mid LAD 04/13/2015 Paroxysmal atrial fibrillation (Chronic) Dyspnea on exertion (Chronic) Dizziness (Chronic) Near syncope (Chronic) Stenosis of right carotid artery (Chronic) Right bundle branch block (Chronic) Anxiety (Chronic) Hyperlipidemia (Chronic) Hypertension (Chronic) Hypothyroidism (Chronic) CVA (cerebral vascular accident) (Chronic) MRI demonstrated an acute infarct in the right thalamus and left parietal region. 01/2017 Hospital Course and Treatment Imaging Results: Diagnostic Data Brain CT 04/29/18 13:45 IMPRESSION: Moderate atrophy. Relatively stable appearing head CT. However given clinical history recommend consideration for follow-up MRI. Electronically Signed: Roseanna Tatum MD at 14:45 EDT Tel , Service support , Brain MRI 04/30/18 08:00 IMPRESSION: 1. Involutional changes of the brain, as described above. 2. Apparent tiny acute infarcts involving the javi and midbrain. N.B. : The above information has been verbally conveyed by Gloria Valenzuela MD to Gregorio Norman RN, on 04/30/2018 11:43:33 (ET). Electronically Signed: Gloria Valenzuela MD at 11:31 EDT , Service support , Head MRA 04/30/18 08:00 IMPRESSION: 1. Hemodynamically significant stenosis of the left M2 branch. 2. No MRA evidence for aneurysm. Electronically Signed: Gloria Valenzuela MD at 11:41 EDT , Service support , Neck MRA 04/30/18 08:00 IMPRESSION: 1. Moderate atherosclerotic plaque at the origin of the right internal carotid artery with less than 50% diameter narrowing. 2. General patency of the arteries of the neck, otherwise, without evidence for dissection. Electronically Signed: Gloria Valenzuela MD at 11:49 EDT , Service support , Dr. Angelo- Neurology. Operations: None Procedures: 2-D Echocardiogram Summary of Care Provided: The patient is a 77 year old F admitted 04/29/2018 due to slurred speech. Neurology consulted. Patient found to have acute left pontine infarct. Patient with recent history of recurrent falls suspected secondary to severe peripheral neuropathy. Recent left ankle fracture secondary to mechanical fall, in leg splint. Brain CT showed moderate atrophy. MRI of brain showed involutional changes of the brain, tiny acute infarcts involving the javi and midbrain. Neck MRA showed moderate plaque of the right internal carotid with less than 50% diameter narrowing. General patency of the arteries of the neck. Echocardiogram showed an EF of 65%, mild mitral valve thickening, mild mitral valve insufficiency, moderate tricuspid valve insufficiency, mild aortic valve thickening, RVSP estimated to be 34 mmHg. Continue aspirin, Plavix. Patient ideally would be on statin as well however she reports severe allergy. Otherwise, resume home medications. Patient will be discharged to rehab unit for further PT/OT/ST. See PCP in 1 week, neurology in 1-2 Weeks. Patient's chronic medical includes chronic hyponatremia, hypertension, hyperlipidemia, hypothyroidism, depression, anxiety. Chronic medical conditions stable at this time. General: Alert, Oriented x3, Cooperative, No apparent distress HEENT: Atraumatic, PERRLA, EOMI, Normocephalic Oral: Moist Mucosa Neck: Supple, No JVD, Negative Carotid Bruits Lungs: Clear to auscultation, Normal air movement, No rhonchi, No wheeze, No rales Cardiovascular: Regular rate, Regular Rhythm, Normal S1, Normal S2, No murmurs Abdomen: Bowel Sounds Present, Soft, Non Tender, Non-Distended, No Hepato- splenomegaly Extremities: No clubbing, No cyanosis, No edema, Capillary Refill Less than 3 Seconds Skin: No rashes, No breakdown Musculoskeletal: No Tenderness to Palpation of Joints or Extremities, right lower extremity in splint. Lymphatic: No Cervical, Supraclavicular, or Inguinal Adenopathy Neurological: Slurred Speech, otherwise neuro grossly intact Psych/Mental Status: Normal Affect, Appropriate, Alert and oriented to time, place, person, mood and affect Patient seen exam prior to discharge. Physical assessment as noted above. Patient stable for rehab unit for further therapy. This patient was seen by MARLY Braden under the supervision of Dr. Carbajal. - Physical Exam Vital Signs Temp Pulse Resp BP Pulse Ox 98.3 F 73 16 161/96 H 95 04/30/18 10:08 04/30/18 11:03 04/30/18 10:08 04/30/18 10:08 04/30/18 10:08 Oxygen Delivery Method Room Air Weight: 188 lb 4.396 oz Body Mass Index (BMI) 29.5 Finger Stick Blood Glucose 100 Intake and Output for Last 24 Hours 04/28/18 04/29/18 04/30/18 23:59 23:59 23:59 Intake Total 120 / 120 960 / 960 Output Total 450 / 450 Balance 120 / 120 510 / 510 Laboratory Tests Past 24 Hrs 04/29/18 04/29/18 04/29/18 14:18 14:18 14:18 WBC 5.2 RBC 4.23 Hgb 13.7 Hct 40.5 MCV 95.7 MCH 32.4 H MCHC 33.8 RDW 14.0 RDW Differential 47.2 H Plt Count 313 MPV 9.0 Immature Gran % (Auto) 0.200 Neut % (Auto) 56.8 Lymph % (Auto) 26.3 [place] % (Auto) 13.0 H Eos % (Auto) 3.3 Baso % (Auto) 0.4 Absolute Neuts (auto) 2.9 Absolute Lymphs (auto) 1.36 Total Counted Not Reportable PT 12.9 INR 1.0 APTT 29.8 Sodium 132 L Potassium 4.5 Chloride 97 L Carbon Dioxide 27.0 Anion Gap 8 BUN 11 Creatinine 0.90 Estim Creat Clear Calc 50.91 Est GFR (MDRD) Af Amer 78 Est GFR (MDRD) Non-Af 64 BUN/Creatinine Ratio 12.2 Glucose 84 Hemoglobin A1c Calcium 8.7 Triglycerides Cholesterol LDL Cholesterol VLDL Cholesterol HDL Cholesterol Urine Color Urine Clarity Urine pH Ur Specific [place] Urine Protein Urine Glucose (UA) Urine Ketones Urine Occult Blood Urine Nitrite Urine Bilirubin Urine Urobilinogen Ur Leukocyte Esterase Urine RBC Urine WBC Ur Squamous Epith Cells Urine Bacteria Urine Mucus 04/29/18 04/29/18 04/30/18 14:18 19:23 05:35 WBC 4.3 L RBC 3.95 L Hgb 12.7 Hct 38.1 MCV 96.5 MCH 32.2 H MCHC 33.3 RDW 14.2 RDW Differential 50.7 H Plt Count 297 MPV 9.2 Immature Gran % (Auto) 0.000 Neut % (Auto) 51.1 Lymph % (Auto) 32.6 [place] % (Auto) 12.1 H Eos % (Auto) 3.5 Baso % (Auto) 0.7 Absolute Neuts (auto) 2.2 Absolute Lymphs (auto) 1.40 Total Counted Not Reportable PT INR APTT Sodium Potassium Chloride Carbon Dioxide Anion Gap BUN Creatinine Estim Creat Clear Calc Est GFR (MDRD) Af Amer Est GFR (MDRD) Non-Af BUN/Creatinine Ratio Glucose Hemoglobin A1c 5.7 Calcium Triglycerides Cholesterol LDL Cholesterol VLDL Cholesterol HDL Cholesterol Urine Color Yellow Urine Clarity Clear Urine pH 6.0 Ur Specific [place] 1.015 Urine Protein Negative Urine Glucose (UA) Normal Urine Ketones Negative Urine Occult Blood Negative Urine Nitrite Positive H Urine Bilirubin Negative Urine Urobilinogen Normal Ur Leukocyte Esterase 100 H Urine RBC 0 SEEN Urine WBC 10-25 SEEN Ur Squamous Epith Cells 0-5 SEEN Urine Bacteria 1+ Urine Mucus 0 SEEN 04/30/18 05:35 WBC RBC Hgb Hct MCV MCH MCHC RDW RDW Differential Plt Count MPV Immature Gran % (Auto) Neut % (Auto) Lymph % (Auto) [place] % (Auto) Eos % (Auto) Baso % (Auto) Absolute Neuts (auto) Absolute Lymphs (auto) Total Counted PT INR APTT Sodium 132 L Potassium 4.4 Chloride 97 L Carbon Dioxide 26.0 Anion Gap 9 BUN 10 Creatinine 0.79 Estim Creat Clear Calc 44.10 Est GFR (MDRD) Af Amer 90 Est GFR (MDRD) Non-Af 74 BUN/Creatinine Ratio 12.6 Glucose 75 Hemoglobin A1c Calcium 8.4 L Triglycerides 80 Cholesterol 139 LDL Cholesterol 82 VLDL Cholesterol 16 HDL Cholesterol 41 Urine Color Urine Clarity Urine pH Ur Specific [place] Urine Protein Urine Glucose (UA) Urine Ketones Urine Occult Blood Urine Nitrite Urine Bilirubin Urine Urobilinogen Ur Leukocyte Esterase Urine RBC Urine WBC Ur Squamous Epith Cells Urine Bacteria Urine Mucus POC Glucose 04/29/18 13:43 POC Glucose 100 Discharge Diet: Low fat/ Low Cholesterol Discharge Activity: Return to Normal Activity Call your doctor if you observe: Numbness or Tingling, Shortness of breath, Dizziness, Fainting spells, Chest pain Home Medications: Medications to take at Discharge Levothyroxine [Synthroid] 75 mcg PO DAILY 06/07/14 ALPRAZolam [Xanax] 0.25 mg PO QHS 04/29/18 Bupropion HCl [Bupropion Xl] 150 mg PO DAILY 04/29/18 Clopidogrel Bisulfate [Plavix] 75 mg PO DAILY 04/29/18 Potassium Chloride [Klor-Con M20] 40 meq PO BID 04/29/18 Venlafaxine XR [Effexor Xr] 150 mg PO DAILY 04/29/18 Aspirin [Aspirin, Baby] 81 mg PO DAILY@0800 05/01/18 Primary Care Physician: Marisol Casas DO [Primary Care Provider] - Please follow up with your Primary Care Physician in: 1 Week Please Follow Up With: Moises Angelo MD When: 1-2 Weeks Disposition: Inpt Rehab Unit/Facility Minutes spent on discharge:: 35 Patient Condition:: Stable Medical Necessity - Tobacco Use Smoking Status: Never smoker Tobacco Use: Non-smoker Meaningful Use Info Meaningful Use Diagnoses (Choose all that apply): Ischemic CVA - CVA Therapy Assessed for PT,OT and/or ST?: Yes - Ischemic Stroke Antithrombotic order at d/c?: Yes Dx of Atrial fib/flutter?: No Statins at discharge?: No Reason Statin not ordered: Drug Allergy Primary Dx Acute Ischemic CVA?: Yes IV tPA ordered during stay?: No Reason IV t-PA not ordered: Treatment not Indicated <Richie Carbajal - Last Filed: 05/01/18 18:47> Discharge Date and Diagnosis - Secondary Discharge Diagnosis Chronic Problems (Last Reviewed 04/30/18 @ 10:02 by Moises Angelo MD) Hypokalemia (Chronic) Presence of aortocoronary bypass graft (Chronic) CABG X 2 CAN-LAD, SVG-CX 06/11/2014 @ [facility] per Dr. Sutton Atherosclerotic heart disease of [place] coronary artery without angina pectoris (Chronic) Presence of coronary angioplasty implant and graft (Chronic) IVUS left main 06/07/2014, PCI-FAREED Prox & Mid LAD 04/13/2015 Paroxysmal atrial fibrillation (Chronic) Dyspnea on exertion (Chronic) Dizziness (Chronic) Near syncope (Chronic) Stenosis of right carotid artery (Chronic) Right bundle branch block (Chronic) Anxiety (Chronic) Hyperlipidemia (Chronic) Hypertension (Chronic) Hypothyroidism (Chronic) CVA (cerebral vascular accident) (Chronic) MRI demonstrated an acute infarct in the right thalamus and left parietal region. 01/2017 Hospital Course and Treatment Imaging Results: 04/30/18 08:00 Echo Complete [ECHO] Routine Brain without Contrast [MRI] Urgent MRA Head ONLY without Contrast [MRI] Urgent MRA Neck WITH and W/O Contrast [MRI] Urgent Summary of Care Provided: This patient was seen in conjunction with Ruby GARCIA. I have independently interviewed and examined the patient and reviewed pertinent history, examination findings, laboratory and plan of management. I have reviewed the note and agree with the documented findings with the few additional points. In brief, patient is admitted for slurred speech, dysarthria. Patient has history of recurrent fall with recent left ankle fracture and left leg in a splint. MRI brain was done that shows tiny acute infarcts involving the javi and the midbrain and diagnosed acute left pontine infarct. Patient was seen by neurologist. Full stroke evaluation was done as mentioned above. I have discussed my assessment with Ruby GARCIA and orders have been reviewed. 2D echo was done and reported as EF 65%. No regional wall motion abnormality. Left atrium mildly dilated. No Doppler evidence for ASD. Mild MR. Mild diffuse aortic wall thickening. Trivial AR. Patient is on aspirin, Plavix. Patient has severe allergy with statins. Fasting lipid profile shows LDL 82, HDL 41. Patient was seen and evaluated by PT, OT and speech evaluation. Patient transferred to acute rehab.. [] Subjective: The patient was seen and examined today patient has mild language deficit and dysarthria. Swallowing is good. Objective: General: Alert, Oriented x3, Cooperative HEENT: Atraumatic, PERRLA, EOMI, Normocephalic Neck: Supple, No JVD, Negative Carotid Bruits Lungs: Clear to auscultation, Normal air movement Cardiovascular: Regular rate, Regular Rhythm, Normal S1, Normal S2, No murmurs Abdomen: Bowel Sounds Present, Soft, Non Tender, Non-Distended Extremities: No clubbing, No cyanosis, No edema, Capillary Refill Less than 3 Seconds Skin: No rashes, No breakdown Musculoskeletal: No Tenderness to Palpation of Joints or Extremities, Left ankle fracture and lower extremity in splint Neurological: Cranial nerves II-XII grossly intact, Mild Dysarthria, mild aphasia, NIHSS 2 Psych/Mental Status: Normal Affect, Appropriate - Physical Exam General: Alert, Oriented x3, Cooperative HEENT: Atraumatic, PERRLA, EOMI, Normocephalic Neck: Supple, No JVD, Negative Carotid Bruits Lungs: Clear to auscultation, Normal air movement, No rhonchi, No wheeze, No rales Cardiovascular: Regular rate, Regular Rhythm, Normal S1, Normal S2, No murmurs Abdomen: Bowel Sounds Present, Soft, Non Tender, Non-Distended Extremities: No edema, Capillary Refill Less than 3 Seconds Skin: No rashes, No breakdown Musculoskeletal: No Tenderness to Palpation of Joints or Extremities, Arthritic Changes Neurological: Deep Tendon Reflexes 2+/4 and Symmetrical, - - Mild left-sided facial droop, unclear acute or from previous stroke. NIH stroke 3, facial droop, language deficit and mild dysarthria. Psych/Mental Status: Normal Affect, Appropriate Vital Signs Temp Pulse Resp BP Pulse Ox 98.1 F 75 16 148/91 H 97 04/30/18 14:08 04/30/18 14:08 04/30/18 14:08 04/30/18 14:08 04/30/18 14:08 Oxygen Delivery Method Room Air Weight: 188 lb 4.396 oz Body Mass Index (BMI) 29.5 Finger Stick Blood Glucose 100 Intake and Output for Last 24 Hours 04/28/18 04/29/18 04/30/18 23:59 23:59 23:59 Intake Total 120 / 120 960 / 960 Output Total 450 / 450 Balance 120 / 120 510 / 510 Laboratory Tests Past 24 Hrs 04/29/18 04/29/18 04/30/18 14:18 19:23 05:35 WBC 4.3 L RBC 3.95 L Hgb 12.7 Hct 38.1 MCV 96.5 MCH 32.2 H MCHC 33.3 RDW 14.2 RDW Differential 50.7 H Plt Count 297 MPV 9.2 Immature Gran % (Auto) 0.000 Neut % (Auto) 51.1 Lymph % (Auto) 32.6 [place] % (Auto) 12.1 H Eos % (Auto) 3.5 Baso % (Auto) 0.7 Absolute Neuts (auto) 2.2 Absolute Lymphs (auto) 1.40 Total Counted Not Reportable Sodium Potassium Chloride Carbon Dioxide Anion Gap BUN Creatinine Estim Creat Clear Calc Est GFR (MDRD) Af Amer Est GFR (MDRD) Non-Af BUN/Creatinine Ratio Glucose Hemoglobin A1c 5.7 Calcium Triglycerides Cholesterol LDL Cholesterol VLDL Cholesterol HDL Cholesterol Urine Color Yellow Urine Clarity Clear Urine pH 6.0 Ur Specific [place] 1.015 Urine Protein Negative Urine Glucose (UA) Normal Urine Ketones Negative Urine Occult Blood Negative Urine Nitrite Positive H Urine Bilirubin Negative Urine Urobilinogen Normal Ur Leukocyte Esterase 100 H Urine RBC 0 SEEN Urine WBC 10-25 SEEN Ur Squamous Epith Cells 0-5 SEEN Urine Bacteria 1+ Urine Mucus 0 SEEN 04/30/18 05:35 WBC RBC Hgb Hct MCV MCH MCHC RDW RDW Differential Plt Count MPV Immature Gran % (Auto) Neut % (Auto) Lymph % (Auto) [place] % (Auto) Eos % (Auto) Baso % (Auto) Absolute Neuts (auto) Absolute Lymphs (auto) Total Counted Sodium 132 L Potassium 4.4 Chloride 97 L Carbon Dioxide 26.0 Anion Gap 9 BUN 10 Creatinine 0.79 Estim Creat Clear Calc 44.10 Est GFR (MDRD) Af Amer 90 Est GFR (MDRD) Non-Af 74 BUN/Creatinine Ratio 12.6 Glucose 75 Hemoglobin A1c Calcium 8.4 L Triglycerides 80 Cholesterol 139 LDL Cholesterol 82 VLDL Cholesterol 16 HDL Cholesterol 41 Urine Color Urine Clarity Urine pH Ur Specific [place] Urine Protein Urine Glucose (UA) Urine Ketones Urine Occult Blood Urine Nitrite Urine Bilirubin Urine Urobilinogen Ur Leukocyte Esterase Urine RBC Urine WBC Ur Squamous Epith Cells Urine Bacteria Urine Mucus Code Visit Inpatient E&M: [id number] Disch Hosp
--- NOTE | 2018-04-30 13:11 | PCM.PROGNOTE ---
<Ruby Arnold - Last Filed: 04/30/18 13:17> Subjective: Patient seen and examined. Continues to complain of slurred speech. Denies other neurologic deficits. Denies unilateral weakness or other new symptoms. Awaiting approval to rehab unit. - Physical Exam General: Alert, Oriented x3, Cooperative HEENT: Atraumatic, PERRLA, EOMI, Normocephalic Neck: Supple, No JVD, Negative Carotid Bruits Lungs: Clear to auscultation, Normal air movement Cardiovascular: Regular rate, Regular Rhythm, Normal S1, Normal S2, No murmurs Abdomen: Bowel Sounds Present, Soft, Non Tender, Non-Distended Extremities: No clubbing, No cyanosis, No edema, Capillary Refill Less than 3 Seconds Skin: No rashes, No breakdown Musculoskeletal: No Tenderness to Palpation of Joints or Extremities, - - Right lower extremity in splint Neurological: Cranial nerves II-XII grossly intact, - - Dysarthria, mild aphasia Psych/Mental Status: Normal Affect, Appropriate Vital Signs Temp Pulse Resp BP Pulse Ox 98.3 F 73 16 161/96 H 95 04/30/18 10:08 04/30/18 11:03 04/30/18 10:08 04/30/18 10:08 04/30/18 10:08 Oxygen Delivery Method Room Air Weight: 188 lb 4.396 oz Body Mass Index (BMI) 29.5 Finger Stick Blood Glucose 100 Intake and Output for Last 24 Hours 04/28/18 04/29/18 04/30/18 23:59 23:59 23:59 Intake Total 120 / 120 960 / 960 Output Total 450 / 450 Balance 120 / 120 510 / 510 Laboratory Tests Past 24 Hrs 04/29/18 04/29/18 04/29/18 14:18 14:18 14:18 WBC 5.2 RBC 4.23 Hgb 13.7 Hct 40.5 MCV 95.7 MCH 32.4 H MCHC 33.8 RDW 14.0 RDW Differential 47.2 H Plt Count 313 MPV 9.0 Immature Gran % (Auto) 0.200 Neut % (Auto) 56.8 Lymph % (Auto) 26.3 [place] % (Auto) 13.0 H Eos % (Auto) 3.3 Baso % (Auto) 0.4 Absolute Neuts (auto) 2.9 Absolute Lymphs (auto) 1.36 Total Counted Not Reportable PT 12.9 INR 1.0 APTT 29.8 Sodium 132 L Potassium 4.5 Chloride 97 L Carbon Dioxide 27.0 Anion Gap 8 BUN 11 Creatinine 0.90 Estim Creat Clear Calc 50.91 Est GFR (MDRD) Af Amer 78 Est GFR (MDRD) Non-Af 64 BUN/Creatinine Ratio 12.2 Glucose 84 Hemoglobin A1c Calcium 8.7 Triglycerides Cholesterol LDL Cholesterol VLDL Cholesterol HDL Cholesterol Urine Color Urine Clarity Urine pH Ur Specific [place] Urine Protein Urine Glucose (UA) Urine Ketones Urine Occult Blood Urine Nitrite Urine Bilirubin Urine Urobilinogen Ur Leukocyte Esterase Urine RBC Urine WBC Ur Squamous Epith Cells Urine Bacteria Urine Mucus 04/29/18 04/29/18 04/30/18 14:18 19:23 05:35 WBC 4.3 L RBC 3.95 L Hgb 12.7 Hct 38.1 MCV 96.5 MCH 32.2 H MCHC 33.3 RDW 14.2 RDW Differential 50.7 H Plt Count 297 MPV 9.2 Immature Gran % (Auto) 0.000 Neut % (Auto) 51.1 Lymph % (Auto) 32.6 [place] % (Auto) 12.1 H Eos % (Auto) 3.5 Baso % (Auto) 0.7 Absolute Neuts (auto) 2.2 Absolute Lymphs (auto) 1.40 Total Counted Not Reportable PT INR APTT Sodium Potassium Chloride Carbon Dioxide Anion Gap BUN Creatinine Estim Creat Clear Calc Est GFR (MDRD) Af Amer Est GFR (MDRD) Non-Af BUN/Creatinine Ratio Glucose Hemoglobin A1c 5.7 Calcium Triglycerides Cholesterol LDL Cholesterol VLDL Cholesterol HDL Cholesterol Urine Color Yellow Urine Clarity Clear Urine pH 6.0 Ur Specific [place] 1.015 Urine Protein Negative Urine Glucose (UA) Normal Urine Ketones Negative Urine Occult Blood Negative Urine Nitrite Positive H Urine Bilirubin Negative Urine Urobilinogen Normal Ur Leukocyte Esterase 100 H Urine RBC 0 SEEN Urine WBC 10-25 SEEN Ur Squamous Epith Cells 0-5 SEEN Urine Bacteria 1+ Urine Mucus 0 SEEN 04/30/18 05:35 WBC RBC Hgb Hct MCV MCH MCHC RDW RDW Differential Plt Count MPV Immature Gran % (Auto) Neut % (Auto) Lymph % (Auto) [place] % (Auto) Eos % (Auto) Baso % (Auto) Absolute Neuts (auto) Absolute Lymphs (auto) Total Counted PT INR APTT Sodium 132 L Potassium 4.4 Chloride 97 L Carbon Dioxide 26.0 Anion Gap 9 BUN 10 Creatinine 0.79 Estim Creat Clear Calc 44.10 Est GFR (MDRD) Af Amer 90 Est GFR (MDRD) Non-Af 74 BUN/Creatinine Ratio 12.6 Glucose 75 Hemoglobin A1c Calcium 8.4 L Triglycerides 80 Cholesterol 139 LDL Cholesterol 82 VLDL Cholesterol 16 HDL Cholesterol 41 Urine Color Urine Clarity Urine pH Ur Specific [place] Urine Protein Urine Glucose (UA) Urine Ketones Urine Occult Blood Urine Nitrite Urine Bilirubin Urine Urobilinogen Ur Leukocyte Esterase Urine RBC Urine WBC Ur Squamous Epith Cells Urine Bacteria Urine Mucus POC Glucose 04/29/18 13:43 POC Glucose 100 Medical Necessity - Tobacco Use Smoking Status: Never smoker Tobacco Use: Non-smoker Assessment/Plan All Active Problems (Last Reviewed 05/01/18 @ 13:14 by Moises Angelo MD) Slurred speech (Acute) 1. Acute left pontine infarct-neurology consulted. PT/OT/ST. continue aspirin, Plavix. 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 Neck MRA without significant stenosis. Echocardiogram pending. Awaiting approval to rehab. 2. Chronic hyponatremia-stable. 3. Hypertension-permissive given #1. 4. Hyperlipidemia-reported severe allergy to statin. 5. Hypothyroidism-continue Synthroid regimen. 6. Depression/anxiety-continue home regimen. 7. Debility with recurrent falls, recent left ankle fracture- PT/PT. Rehab at [facility]. DVT prophylaxis-heparin sc This patient was seen by MARLY Braden under the supervision of Dr. Carbajal. <Richie Carbajal - Last Filed: 05/01/18 18:48> Subjective: Patient admitted with slurred C speech, dysarthria and mild language deficit. NIHSS 3 - Physical Exam General: Alert, Oriented x3, Cooperative HEENT: Atraumatic, PERRLA, EOMI, Normocephalic Neck: Supple, No JVD, Negative Carotid Bruits Lungs: Clear to auscultation, No rhonchi, No wheeze, No rales, Diminished - Air entry mildly diminished in bilateral lung bases Cardiovascular: Regular rate, No murmurs Abdomen: Bowel Sounds Present, Soft, Non Tender Extremities: No edema, Capillary Refill Less than 3 Seconds Skin: No rashes, No breakdown Musculoskeletal: No Tenderness to Palpation of Joints or Extremities, - - Left lower extremity in splint Neurological: Cranial nerves II-XII grossly intact Psych/Mental Status: Normal Affect, Appropriate Vital Signs Temp Pulse Resp BP Pulse Ox 98.1 F 75 16 148/91 H 97 04/30/18 14:08 04/30/18 14:08 04/30/18 14:08 04/30/18 14:08 04/30/18 14:08 Oxygen Delivery Method Room Air Weight: 188 lb 4.396 oz Body Mass Index (BMI) 29.5 Finger Stick Blood Glucose 100 Intake and Output for Last 24 Hours 04/28/18 04/29/18 04/30/18 23:59 23:59 23:59 Intake Total 120 / 120 960 / 960 Output Total 450 / 450 Balance 120 / 120 510 / 510 Laboratory Tests Past 24 Hrs 04/29/18 04/29/18 04/30/18 14:18 19:23 05:35 WBC 4.3 L RBC 3.95 L Hgb 12.7 Hct 38.1 MCV 96.5 MCH 32.2 H MCHC 33.3 RDW 14.2 RDW Differential 50.7 H Plt Count 297 MPV 9.2 Immature Gran % (Auto) 0.000 Neut % (Auto) 51.1 Lymph % (Auto) 32.6 [place] % (Auto) 12.1 H Eos % (Auto) 3.5 Baso % (Auto) 0.7 Absolute Neuts (auto) 2.2 Absolute Lymphs (auto) 1.40 Total Counted Not Reportable Sodium Potassium Chloride Carbon Dioxide Anion Gap BUN Creatinine Estim Creat Clear Calc Est GFR (MDRD) Af Amer Est GFR (MDRD) Non-Af BUN/Creatinine Ratio Glucose Hemoglobin A1c 5.7 Calcium Triglycerides Cholesterol LDL Cholesterol VLDL Cholesterol HDL Cholesterol Urine Color Yellow Urine Clarity Clear Urine pH 6.0 Ur Specific [place] 1.015 Urine Protein Negative Urine Glucose (UA) Normal Urine Ketones Negative Urine Occult Blood Negative Urine Nitrite Positive H Urine Bilirubin Negative Urine Urobilinogen Normal Ur Leukocyte Esterase 100 H Urine RBC 0 SEEN Urine WBC 10-25 SEEN Ur Squamous Epith Cells 0-5 SEEN Urine Bacteria 1+ Urine Mucus 0 SEEN 04/30/18 05:35 WBC RBC Hgb Hct MCV MCH MCHC RDW RDW Differential Plt Count MPV Immature Gran % (Auto) Neut % (Auto) Lymph % (Auto) [place] % (Auto) Eos % (Auto) Baso % (Auto) Absolute Neuts (auto) Absolute Lymphs (auto) Total Counted Sodium 132 L Potassium 4.4 Chloride 97 L Carbon Dioxide 26.0 Anion Gap 9 BUN 10 Creatinine 0.79 Estim Creat Clear Calc 44.10 Est GFR (MDRD) Af Amer 90 Est GFR (MDRD) Non-Af 74 BUN/Creatinine Ratio 12.6 Glucose 75 Hemoglobin A1c Calcium 8.4 L Triglycerides 80 Cholesterol 139 LDL Cholesterol 82 VLDL Cholesterol 16 HDL Cholesterol 41 Urine Color Urine Clarity Urine pH Ur Specific [place] Urine Protein Urine Glucose (UA) Urine Ketones Urine Occult Blood Urine Nitrite Urine Bilirubin Urine Urobilinogen Ur Leukocyte Esterase Urine RBC Urine WBC Ur Squamous Epith Cells Urine Bacteria Urine Mucus Assessment/Plan This patient was seen in conjunction with [employer]. I have independently interviewed and examined the patient and reviewed pertinent history, examination findings, laboratory and plan of management. I have reviewed the note and agree with the documented findings with the few additional points. In brief, patient is admitted for slurred speech, dysarthria. Patient has history of recurrent fall with recent left ankle fracture and left leg in a splint. MRI brain was done that shows tiny acute infarcts involving the javi and the midbrain and diagnosed acute left pontine infarct. Patient was seen by neurologist. Full stroke evaluation was done as mentioned above. I have discussed my assessment with Ruby GARCIA and orders have been reviewed. 2D echo is pending. Patient is on aspirin, Plavix. Patient has severe allergy with statins. Fasting lipid profile shows LDL 82, HDL 41. Patient was seen and evaluated by PT, OT and speech evaluation. Patient is scheduled to be discharged to acute rehab unit. [] Code Visit Inpatient E&M: 64537 Subs Hosp L3
--- NOTE | 2018-04-30 13:29 | CASEMGMT ---
Physician would like to d/c patient to the rehab unit today. MARANDA spoke with Sanna and she checked with Dr Angelo. He said patient cannot go to rehab unit today. Plan: [facility] 4th floor rehab unit [facility] MARCUM
--- NOTE | 2018-04-30 14:52 | CASEMGMT ---
MARANDA spoke with Janet at [facility] and she is aware of patient going to [facility] 4th floor rehab unit at d/c. Patient's daughter is a nurse at [facility]. Plan: [facility] 4th floor rehab Maryjo MARCUM
[2018-04-30] MEDS: ALPRAZolam 0.25 MG Tablet PO (21:01)
[2018-05-01] VITALS (9 sets, daily range): BP systolic 133–157; BP diastolic 70–91; PULSE 65–74; RESP 12–18; TEMP 36.4–36.9; O2SAT 93–96
[2018-05-01] MEDS: 0.9% NaCl Peripheral Flush Adult/Peds IV (01:07)
[2018-05-01] MEDS: Heparin Injection (Vial) 5,000 UNIT/ML VIAL 5000 UNIT SC ×2 (05:01→14:58)
[2018-05-01] MEDS: Levothyroxine 75 MCG Tablet PO (05:01)
[2018-05-01] MEDS: Aspirin 81 MG TAB.CHEW PO (08:30)
[2018-05-01] MEDS: Venlafaxine XR 150 MG Capsule PO (10:02)
[2018-05-01] MEDS: amLODIPine 2.5 MG Tablet PO (10:02)
[2018-05-01] MEDS: buPROPion (XL) 150 MG TABLET.XL PO (10:02)
[2018-05-01] MEDS: 0.9% Normal Saline 1,000 ML 100 ML IV (10:02)
[2018-05-01] MEDS: Losartan Potassium 100 MG Tablet PO (10:02)
[2018-05-01] MEDS: Clopidogrel Bisulfate 75 MG Tablet PO (10:02)
--- NOTE | 2018-05-01 12:55 | PCM.DC.SUM ---
<Ruby Arnold - Last Filed: 05/01/18 11:47> Discharge Date and Diagnosis Date of Admission: 04/29/18 Date of Discharge: 05/01/18 - Primary Discharge Diagnosis Active and Suspected Problems (Last Reviewed 04/30/18 @ 10:02 by Moises Angelo MD) 1. Acute left pontine infarct 2. Chronic hyponatremia 3. Hypertension 4. Hyperlipidemia 5. Recent left ankle fracture - Secondary Discharge Diagnosis Chronic Problems (Last Reviewed 04/30/18 @ 10:02 by Moises Angelo MD) Hypokalemia (Chronic) Presence of aortocoronary bypass graft (Chronic) CABG X 2 CAN-LAD, SVG-CX 06/11/2014 @ [facility] per Dr. Sutton Atherosclerotic heart disease of [place] coronary artery without angina pectoris (Chronic) Presence of coronary angioplasty implant and graft (Chronic) IVUS left main 06/07/2014, PCI-FAREED Prox & Mid LAD 04/13/2015 Paroxysmal atrial fibrillation (Chronic) Dyspnea on exertion (Chronic) Dizziness (Chronic) Near syncope (Chronic) Stenosis of right carotid artery (Chronic) Right bundle branch block (Chronic) Anxiety (Chronic) Hyperlipidemia (Chronic) Hypertension (Chronic) Hypothyroidism (Chronic) CVA (cerebral vascular accident) (Chronic) MRI demonstrated an acute infarct in the right thalamus and left parietal region. 01/2017 Hospital Course and Treatment Imaging Results: Diagnostic Data Brain CT 04/29/18 13:45 IMPRESSION: Moderate atrophy. Relatively stable appearing head CT. However given clinical history recommend consideration for follow-up MRI. Electronically Signed: Roseanna Tatum MD at 14:45 EDT Tel , Service support , Brain MRI 04/30/18 08:00 IMPRESSION: 1. Involutional changes of the brain, as described above. 2. Apparent tiny acute infarcts involving the javi and midbrain. N.B. : The above information has been verbally conveyed by Gloria Valenzuela MD to Gregorio Norman RN, on 04/30/2018 11:43:33 (ET). Electronically Signed: Gloria Valenzuela MD at 11:31 EDT , Service support , Head MRA 04/30/18 08:00 IMPRESSION: 1. Hemodynamically significant stenosis of the left M2 branch. 2. No MRA evidence for aneurysm. Electronically Signed: Gloria Valenzuela MD at 11:41 EDT , Service support , Neck MRA 04/30/18 08:00 IMPRESSION: 1. Moderate atherosclerotic plaque at the origin of the right internal carotid artery with less than 50% diameter narrowing. 2. General patency of the arteries of the neck, otherwise, without evidence for dissection. Electronically Signed: Gloria Valenzuela MD at 11:49 EDT , Service support , Dr. Angelo- Neurology. Operations: None Procedures: 2-D Echocardiogram Summary of Care Provided: The patient is a 77 year old F admitted 04/29/2018 due to slurred speech. Neurology consulted. Patient found to have acute left pontine infarct. Patient with recent history of recurrent falls suspected secondary to severe peripheral neuropathy. Recent left ankle fracture secondary to mechanical fall, in leg splint. Brain CT showed moderate atrophy. MRI of brain showed involutional changes of the brain, tiny acute infarcts involving the javi and midbrain. Neck MRA showed moderate plaque of the right internal carotid with less than 50% diameter narrowing. General patency of the arteries of the neck. Echocardiogram showed an EF of 65%, mild mitral valve thickening, mild mitral valve insufficiency, moderate tricuspid valve insufficiency, mild aortic valve thickening, RVSP estimated to be 34 mmHg. Continue aspirin, Plavix. Patient ideally would be on statin as well however she reports severe allergy. Otherwise, resume home medications. Patient will be discharged to rehab unit for further PT/OT/ST. See PCP in 1 week, neurology in 1-2 Weeks. Patient's chronic medical includes chronic hyponatremia, hypertension, hyperlipidemia, hypothyroidism, depression, anxiety. Chronic medical conditions stable at this time. General: Alert, Oriented x3, Cooperative, No apparent distress HEENT: Atraumatic, PERRLA, EOMI, Normocephalic Oral: Moist Mucosa Neck: Supple, No JVD, Negative Carotid Bruits Lungs: Clear to auscultation, Normal air movement, No rhonchi, No wheeze, No rales Cardiovascular: Regular rate, Regular Rhythm, Normal S1, Normal S2, No murmurs Abdomen: Bowel Sounds Present, Soft, Non Tender, Non-Distended, No Hepato-splenomegaly Extremities: No clubbing, No cyanosis, No edema, Capillary Refill Less than 3 Seconds Skin: No rashes, No breakdown Musculoskeletal: No Tenderness to Palpation of Joints or Extremities, right lower extremity in splint. Lymphatic: No Cervical, Supraclavicular, or Inguinal Adenopathy Neurological: Slurred Speech, otherwise neuro grossly intact Psych/Mental Status: Normal Affect, Appropriate, Alert and oriented to time, place, person, mood and affect Patient seen exam prior to discharge. Physical assessment as noted above. Patient stable for rehab unit for further therapy. This patient was seen by MARLY Braden under the supervision of Dr. Carbajal. - Physical Exam Vital Signs Temp Pulse Resp BP Pulse Ox 98.3 F 73 16 161/96 H 95 04/30/18 10:08 04/30/18 11:03 04/30/18 10:08 04/30/18 10:08 04/30/18 10:08 Oxygen Delivery Method Room Air Weight: 188 lb 4.396 oz Body Mass Index (BMI) 29.5 Finger Stick Blood Glucose 100 Intake and Output for Last 24 Hours 04/28/18 04/29/18 04/30/18 23:59 23:59 23:59 Intake Total 120 / 120 960 / 960 Output Total 450 / 450 Balance 120 / 120 510 / 510 Laboratory Tests Past 24 Hrs 04/29/18 04/29/18 04/29/18 14:18 14:18 14:18 WBC 5.2 RBC 4.23 Hgb 13.7 Hct 40.5 MCV 95.7 MCH 32.4 H MCHC 33.8 RDW 14.0 RDW Differential 47.2 H Plt Count 313 MPV 9.0 Immature Gran % (Auto) 0.200 Neut % (Auto) 56.8 Lymph % (Auto) 26.3 Upton % (Auto) 13.0 H Eos % (Auto) 3.3 Baso % (Auto) 0.4 Absolute Neuts (auto) 2.9 Absolute Lymphs (auto) 1.36 Total Counted Not Reportable PT 12.9 INR 1.0 APTT 29.8 Sodium 132 L Potassium 4.5 Chloride 97 L Carbon Dioxide 27.0 Anion Gap 8 BUN 11 Creatinine 0.90 Estim Creat Clear Calc 50.91 Est GFR (MDRD) Af Amer 78 Est GFR (MDRD) Non-Af 64 BUN/Creatinine Ratio 12.2 Glucose 84 Hemoglobin A1c Calcium 8.7 Triglycerides Cholesterol LDL Cholesterol VLDL Cholesterol HDL Cholesterol Urine Color Urine Clarity Urine pH Ur Specific [place] Urine Protein Urine Glucose (UA) Urine Ketones Urine Occult Blood Urine Nitrite Urine Bilirubin Urine Urobilinogen Ur Leukocyte Esterase Urine RBC Urine WBC Ur Squamous Epith Cells Urine Bacteria Urine Mucus 04/29/18 04/29/18 04/30/18 14:18 19:23 05:35 WBC 4.3 L RBC 3.95 L Hgb 12.7 Hct 38.1 MCV 96.5 MCH 32.2 H MCHC 33.3 RDW 14.2 RDW Differential 50.7 H Plt Count 297 MPV 9.2 Immature Gran % (Auto) 0.000 Neut % (Auto) 51.1 Lymph % (Auto) 32.6 Upton % (Auto) 12.1 H Eos % (Auto) 3.5 Baso % (Auto) 0.7 Absolute Neuts (auto) 2.2 Absolute Lymphs (auto) 1.40 Total Counted Not Reportable PT INR APTT Sodium Potassium Chloride Carbon Dioxide Anion Gap BUN Creatinine Estim Creat Clear Calc Est GFR (MDRD) Af Amer Est GFR (MDRD) Non-Af BUN/Creatinine Ratio Glucose Hemoglobin A1c 5.7 Calcium Triglycerides Cholesterol LDL Cholesterol VLDL Cholesterol HDL Cholesterol Urine Color Yellow Urine Clarity Clear Urine pH 6.0 Ur Specific [place] 1.015 Urine Protein Negative Urine Glucose (UA) Normal Urine Ketones Negative Urine Occult Blood Negative Urine Nitrite Positive H Urine Bilirubin Negative Urine Urobilinogen Normal Ur Leukocyte Esterase 100 H Urine RBC 0 SEEN Urine WBC 10-25 SEEN Ur Squamous Epith Cells 0-5 SEEN Urine Bacteria 1+ Urine Mucus 0 SEEN 04/30/18 05:35 WBC RBC Hgb Hct MCV MCH MCHC RDW RDW Differential Plt Count MPV Immature Gran % (Auto) Neut % (Auto) Lymph % (Auto) [place]pton % (Auto) Eos % (Auto) Baso % (Auto) Absolute Neuts (auto) Absolute Lymphs (auto) Total Counted PT INR APTT Sodium 132 L Potassium 4.4 Chloride 97 L Carbon Dioxide 26.0 Anion Gap 9 BUN 10 Creatinine 0.79 Estim Creat Clear Calc 44.10 Est GFR (MDRD) Af Amer 90 Est GFR (MDRD) Non-Af 74 BUN/Creatinine Ratio 12.6 Glucose 75 Hemoglobin A1c Calcium 8.4 L Triglycerides 80 Cholesterol 139 LDL Cholesterol 82 VLDL Cholesterol 16 HDL Cholesterol 41 Urine Color Urine Clarity Urine pH Ur Specific [place] Urine Protein Urine Glucose (UA) Urine Ketones Urine Occult Blood Urine Nitrite Urine Bilirubin Urine Urobilinogen Ur Leukocyte Esterase Urine RBC Urine WBC Ur Squamous Epith Cells Urine Bacteria Urine Mucus POC Glucose 04/29/18 13:43 POC Glucose 100 Discharge Diet: Low fat/ Low Cholesterol Discharge Activity: Return to Normal Activity Call your doctor if you observe: Numbness or Tingling, Shortness of breath, Dizziness, Fainting spells, Chest pain Home Medications: Medications to take at Discharge Levothyroxine [Synthroid] 75 mcg PO DAILY 06/07/14 ALPRAZolam [Xanax] 0.25 mg PO QHS 04/29/18 Bupropion HCl [Bupropion Xl] 150 mg PO DAILY 04/29/18 Clopidogrel Bisulfate [Plavix] 75 mg PO DAILY 04/29/18 Potassium Chloride [Klor-Con M20] 40 meq PO BID 04/29/18 Venlafaxine XR [Effexor Xr] 150 mg PO DAILY 04/29/18 Aspirin [Aspirin, Baby] 81 mg PO DAILY@0800 05/01/18 Primary Care Physician: Marisol Casas DO [Primary Care Provider] - Please follow up with your Primary Care Physician in: 1 Week Please Follow Up With: Moises Angelo MD When: 1-2 Weeks Disposition: Inpt Rehab Unit/Facility Minutes spent on discharge:: 35 Patient Condition:: Stable Medical Necessity - Tobacco Use Smoking Status: Never smoker Tobacco Use: Non-smoker Meaningful Use Info Meaningful Use Diagnoses (Choose all that apply): Ischemic CVA - CVA Therapy Assessed for PT,OT and/or ST?: Yes - Ischemic Stroke Antithrombotic order at d/c?: Yes Dx of Atrial fib/flutter?: No Statins at discharge?: No Reason Statin not ordered: Drug Allergy Primary Dx Acute Ischemic CVA?: Yes IV tPA ordered during stay?: No Reason IV t-PA not ordered: Treatment not Indicated <Richie Carbajal - Last Filed: 05/01/18 18:47> Discharge Date and Diagnosis - Secondary Discharge Diagnosis Chronic Problems (Last Reviewed 04/30/18 @ 10:02 by Moises Angelo MD) Hypokalemia (Chronic) Presence of aortocoronary bypass graft (Chronic) CABG X 2 CAN-LAD, SVG-CX 06/11/2014 @ [facility] per Dr. Sutton Atherosclerotic heart disease of [place] coronary artery without angina pectoris (Chronic) Presence of coronary angioplasty implant and graft (Chronic) IVUS left main 06/07/2014, PCI-FAREED Prox & Mid LAD 04/13/2015 Paroxysmal atrial fibrillation (Chronic) Dyspnea on exertion (Chronic) Dizziness (Chronic) Near syncope (Chronic) Stenosis of right carotid artery (Chronic) Right bundle branch block (Chronic) Anxiety (Chronic) Hyperlipidemia (Chronic) Hypertension (Chronic) Hypothyroidism (Chronic) CVA (cerebral vascular accident) (Chronic) MRI demonstrated an acute infarct in the right thalamus and left parietal region. 01/2017 Hospital Course and Treatment Imaging Results: 04/30/18 08:00 Echo Complete [ECHO] Routine Brain without Contrast [MRI] Urgent MRA Head ONLY without Contrast [MRI] Urgent MRA Neck WITH and W/O Contrast [MRI] Urgent Summary of Care Provided: This patient was seen in conjunction with Ruby GARCIA. I have independently interviewed and examined the patient and reviewed pertinent history, examination findings, laboratory and plan of management. I have reviewed the note and agree with the documented findings with the few additional points. In brief, patient is admitted for slurred speech, dysarthria. Patient has history of recurrent fall with recent left ankle fracture and left leg in a splint. MRI brain was done that shows tiny acute infarcts involving the javi and the midbrain and diagnosed acute left pontine infarct. Patient was seen by neurologist. Full stroke evaluation was done as mentioned above. I have discussed my assessment with Ruby GARCIA and orders have been reviewed. 2D echo was done and reported as EF 65%. No regional wall motion abnormality. Left atrium mildly dilated. No Doppler evidence for ASD. Mild MR. Mild diffuse aortic wall thickening. Trivial AR. Patient is on aspirin, Plavix. Patient has severe allergy with statins. Fasting lipid profile shows LDL 82, HDL 41. Patient was seen and evaluated by PT, OT and speech evaluation. Patient transferred to acute rehab.. [] Subjective: The patient was seen and examined today patient has mild language deficit and dysarthria. Swallowing is good. Objective: General: Alert, Oriented x3, Cooperative HEENT: Atraumatic, PERRLA, EOMI, Normocephalic Neck: Supple, No JVD, Negative Carotid Bruits Lungs: Clear to auscultation, Normal air movement Cardiovascular: Regular rate, Regular Rhythm, Normal S1, Normal S2, No murmurs Abdomen: Bowel Sounds Present, Soft, Non Tender, Non-Distended Extremities: No clubbing, No cyanosis, No edema, Capillary Refill Less than 3 Seconds Skin: No rashes, No breakdown Musculoskeletal: No Tenderness to Palpation of Joints or Extremities, Left ankle fracture and lower extremity in splint Neurological: Cranial nerves II-XII grossly intact, Mild Dysarthria, mild aphasia, NIHSS 2 Psych/Mental Status: Normal Affect, Appropriate - Physical Exam General: Alert, Oriented x3, Cooperative HEENT: Atraumatic, PERRLA, EOMI, Normocephalic Neck: Supple, No JVD, Negative Carotid Bruits Lungs: Clear to auscultation, Normal air movement, No rhonchi, No wheeze, No rales Cardiovascular: Regular rate, Regular Rhythm, Normal S1, Normal S2, No murmurs Abdomen: Bowel Sounds Present, Soft, Non Tender, Non-Distended Extremities: No edema, Capillary Refill Less than 3 Seconds Skin: No rashes, No breakdown Musculoskeletal: No Tenderness to Palpation of Joints or Extremities, Arthritic Changes Neurological: Deep Tendon Reflexes 2+/4 and Symmetrical, - - Mild left-sided facial droop, unclear acute or from previous stroke. NIH stroke 3, facial droop, language deficit and mild dysarthria. Psych/Mental Status: Normal Affect, Appropriate Vital Signs Temp Pulse Resp BP Pulse Ox 98.1 F 75 16 148/91 H 97 04/30/18 14:08 04/30/18 14:08 04/30/18 14:08 04/30/18 14:08 04/30/18 14:08 Oxygen Delivery Method Room Air Weight: 188 lb 4.396 oz Body Mass Index (BMI) 29.5 Finger Stick Blood Glucose 100 Intake and Output for Last 24 Hours 04/28/18 04/29/18 04/30/18 23:59 23:59 23:59 Intake Total 120 / 120 960 / 960 Output Total 450 / 450 Balance 120 / 120 510 / 510 Laboratory Tests Past 24 Hrs 04/29/18 04/29/18 04/30/18 14:18 19:23 05:35 WBC 4.3 L RBC 3.95 L Hgb 12.7 Hct 38.1 MCV 96.5 MCH 32.2 H MCHC 33.3 RDW 14.2 RDW Differential 50.7 H Plt Count 297 MPV 9.2 Immature Gran % (Auto) 0.000 Neut % (Auto) 51.1 Lymph % (Auto) 32.6 Upton % (Auto) 12.1 H Eos % (Auto) 3.5 Baso % (Auto) 0.7 Absolute Neuts (auto) 2.2 Absolute Lymphs (auto) 1.40 Total Counted Not Reportable Sodium Potassium Chloride Carbon Dioxide Anion Gap BUN Creatinine Estim Creat Clear Calc Est GFR (MDRD) Af Amer Est GFR (MDRD) Non-Af BUN/Creatinine Ratio Glucose Hemoglobin A1c 5.7 Calcium Triglycerides Cholesterol LDL Cholesterol VLDL Cholesterol HDL Cholesterol Urine Color Yellow Urine Clarity Clear Urine pH 6.0 Ur Specific [place] 1.015 Urine Protein Negative Urine Glucose (UA) Normal Urine Ketones Negative Urine Occult Blood Negative Urine Nitrite Positive H Urine Bilirubin Negative Urine Urobilinogen Normal Ur Leukocyte Esterase 100 H Urine RBC 0 SEEN Urine WBC 10-25 SEEN Ur Squamous Epith Cells 0-5 SEEN Urine Bacteria 1+ Urine Mucus 0 SEEN 04/30/18 05:35 WBC RBC Hgb Hct MCV MCH MCHC RDW RDW Differential Plt Count MPV Immature Gran % (Auto) Neut % (Auto) Lymph % (Auto) [place] % (Auto) Eos % (Auto) Baso % (Auto) Absolute Neuts (auto) Absolute Lymphs (auto) Total Counted Sodium 132 L Potassium 4.4 Chloride 97 L Carbon Dioxide 26.0 Anion Gap 9 BUN 10 Creatinine 0.79 Estim Creat Clear Calc 44.10 Est GFR (MDRD) Af Amer 90 Est GFR (MDRD) Non-Af 74 BUN/Creatinine Ratio 12.6 Glucose 75 Hemoglobin A1c Calcium 8.4 L Triglycerides 80 Cholesterol 139 LDL Cholesterol 82 VLDL Cholesterol 16 HDL Cholesterol 41 Urine Color Urine Clarity Urine pH Ur Specific [place] Urine Protein Urine Glucose (UA) Urine Ketones Urine Occult Blood Urine Nitrite Urine Bilirubin Urine Urobilinogen Ur Leukocyte Esterase Urine RBC Urine WBC Ur Squamous Epith Cells Urine Bacteria Urine Mucus Code Visit Inpatient E&M: [id number] Disch Hosp
--- NOTE | 2018-05-01 13:12 | PCM.HP.STD ---
History of Present Illness Date of Admission: 05/01/18 Chief Complaint: Slurred speech and left leg pain The patient is a 77 year old F who fell in her bathroom approximately 1 month ago, has had pain and was ultimately diagnosed with a left ankle fracture which was treated nonoperatively. She may have seen Dr. Murphy for this however the family is not clear. She was having difficulty at home and was admitted to a local residential for convalescence. 04/29/2018 at about 8 AM 1 of her daughters noted some slurred speech and she was brought to the hospital. She denies any other symptoms and slurred speech. There is some emotionality today but she and her daughter indicates that this is not new and is due to some intercurrent stress due to her illness as well as her 's illness. She says she has a history of borderline diabetes but does not know her sugars, her blood pressures have been only mildly elevated at 130-150 systolic, and she has untreated obstructive sleep apnea last sleep study was about 4 years ago. She denies any weakness otherwise, no double vision, blurred vision, or pain. Denies any triggers otherwise. She was diagnosed with a left pontine stroke by MRI, causing dysarthria and very mild right upper extremity weakness which has stabilized. Stroke workup was otherwise negative, now admitted to the rehab unit for further rehabilitation so that she can return home to her previous level of functional independence. per admit h&p:The patient is a 77 year old F with a PMH of HTN who was admitted through the ED on 04/29/18 with a complaint of slurred speech which started this morning. Patient is currently a patient in a SNF fo/a of right ankle fracture. She noted that she had slurring of her speech this morning. She couldnt say the exact time she noticed it, but whilst eating breakfast this morning, it wasnt present. Slurring of speech worsened so her daughter decided to bring her in to the hospital today. She had a mild headache yesterday, but denied any fever, chills, palpitations, SOB, lightheadedness, dizziness, ringing in her ears, abdominal pain, diarrhea or vomiting. EKG done in the ED showed RBBB and no acute ST changes. CT head was negative for any acute intracranial pathology. Labs were significant for sodium of 132, but was otherwise unremarkable. She is being admitted for stroke workup Past Medical History Past Medical History (Chronic Problems): Chronic Problems (Last Reviewed 05/01/18 @ 13:14 by Moises Angelo MD) Hypokalemia (Chronic) Presence of aortocoronary bypass graft (Chronic) CABG X 2 CAN-LAD, SVG-CX 06/11/2014 @ [facility] per Dr. Sutton Atherosclerotic heart disease of [place] coronary artery without angina pectoris (Chronic) Presence of coronary angioplasty implant and graft (Chronic) IVUS left main 06/07/2014, PCI-FAREED Prox & Mid LAD 04/13/2015 Paroxysmal atrial fibrillation (Chronic) Dyspnea on exertion (Chronic) Dizziness (Chronic) Near syncope (Chronic) Stenosis of right carotid artery (Chronic) Right bundle branch block (Chronic) Anxiety (Chronic) Hyperlipidemia (Chronic) Hypertension (Chronic) Hypothyroidism (Chronic) CVA (cerebral vascular accident) (Chronic) MRI demonstrated an acute infarct in the right thalamus and left parietal region. 01/2017 Medical History: Medical History (Last Reviewed 05/01/18 @ 13:14 by Moises Angelo MD) Hypokalemia (Chronic) E87.6 Atherosclerotic heart disease of [place] coronary artery without angina pectoris (Chronic) I25.10 Paroxysmal atrial fibrillation (Chronic) I48.0 Stenosis of right carotid artery (Chronic) I65.21 Right bundle branch block (Chronic) I45.10 Hyperlipidemia (Chronic) E78.5 Hypertension (Chronic) I10 Hypothyroidism (Chronic) E03.9 CVA (cerebral vascular accident) (Chronic) I63.9 MRI demonstrated an acute infarct in the right thalamus and left parietal region. 01/2017 Allergies atorvastatin Allergy (Verified 11/06/17 11:23) Unknown codeine Allergy (Verified 11/06/17 11:23) Unknown levofloxacin [From Levaquin] Allergy (Verified 11/06/17 11:23) Unknown Penicillins Allergy (Verified 11/06/17 11:23) Unknown pravastatin Allergy (Verified 11/06/17 11:23) myalgia Sulfa (Sulfonamide Antibiotics) Allergy (Verified 11/06/17 11:23) Unknown Home Medications: Ambulatory Orders Medication Instructions Recorded RX: Levothyroxine [Synthroid] 75 mcg PO DAILY 06/07/14 RX: ALPRAZolam [Xanax] 0.25 mg PO DAILY 04/29/18 RX: Amlodipine Besylate [Norvasc] 2.5 mg PO DAILY 04/29/18 RX: Bupropion HCl [Bupropion Xl] 150 mg PO DAILY 04/29/18 RX: Clopidogrel Bisulfate [Plavix] 75 mg PO DAILY 04/29/18 RX: Losartan Potassium [Cozaar] 100 mg PO DAILY 04/29/18 RX: Potassium Chloride [Klor-Con 40 meq PO BID 04/29/18 M20] RX: Venlafaxine XR [Effexor Xr] 150 mg PO DAILY 04/29/18 RX: Aspirin [Aspirin, Baby] 81 mg PO DAILY@0800 tab.chew 04/30/18 Surgical History: Surgical History (Last Reviewed 05/01/18 @ 13:14 by Moises Angelo MD) Presence of aortocoronary bypass graft (Chronic) Z95.1 CABG X 2 CAN-LAD, SVG-CX 06/11/2014 @ [facility] per Dr. Sutton Presence of coronary angioplasty implant and graft (Chronic) Z95.5 IVUS left main 06/07/2014, PCI-FAREED Prox & Mid LAD 04/13/2015 Surgical History: arthroscopy, knee, - - CABG, ankle surgery, kidney surgery, knee replacement Psychiatric History: No pertinent psych hx Lives: [facility] Smoking Status: Never smoker Tobacco Use: Non-smoker Alcohol: None Drugs: None - *Family History Maternal Family History: Family History (Last Reviewed 05/01/18 @ 13:14 by Moises Angelo MD) Father Heart disease Sister Cancer Uncle CAD (coronary artery disease) History Items: - - strokers on mothers sides Paternal Family History: Family History (Last Reviewed 05/01/18 @ 13:14 by Moises Angelo MD) Father Heart disease Sister Cancer Uncle CAD (coronary artery disease) History Items: Heart Disease Review of Systems Constitutional: Denies: Chills, Fever, Weight Change HEENT: Denies: Head Aches, Sinus Congestion, Sinus Drainage Cardiovascular: Denies: Chest Pain, Palpitations Respiratory: Denies: Cough, Shortness of breath at rest, Sputum production Gastrointestinal: Denies: Abdominal Pain, Nausea, Vomiting Genitourinary: Denies: Dysuria Musculoskeletal: Reports: Joint Pain - Left ankle. Denies: Joint Tenderness Skin: Denies: Rash, Wounds Neurological: Reports: Change in Speech, Slurred speech, Incoordination. Denies: Blurred vision, Double vision, Confusion, Focal weakness, Headaches, Numbness, Tingling Psychiatric: Denies: Anxiety, Depression, Homicidal Ideations, Suicidal Ideations Hematologic/ Lymphatic: Denies: Easy Bruising, Easy Bleeding VTE Information - Inpt Only VTE Present on Admission: Yes VTE Pharm Prophylaxis ordered?: Yes - Physical Exam General: Alert, Oriented x3, Cooperative, No apparent distress Lungs: Clear to auscultation Cardiovascular: Regular rate Neurological: Cranial nerves II-XII grossly intact, Deep Tendon Reflexes 2+/4 and Symmetrical, Slurred Speech, Sensory exam intact to light touch and pain, - - Mild right upper extremity discoordination to forearm orbit testing Psych/Mental Status: Normal Affect Vital Signs Temp Pulse Resp BP Pulse Ox 36.8 C 73 18 157/86 H 96 05/01/18 12:26 05/01/18 12:26 05/01/18 12:26 05/01/18 12:26 05/01/18 12:26 Oxygen Delivery Method Room Air Weight: 85.4 kg Body Mass Index (BMI) 29.5 Finger Stick Blood Glucose 100 Intake and Output for Last 24 Hours 04/29/18 04/30/18 05/01/18 23:59 23:59 23:59 Intake Total 120 / 120 2387 / 2387 1368 / 1368 Output Total 1500 / 1500 1000 / 1000 Balance 120 / 120 887 / 887 368 / 368 Current Medications Generic Name Dose Route Start Last Admin Trade Name Freq PRN Reason Stop Dose Admin Alprazolam 0.25 mg 04/30/18 22:00 04/30/18 21:01 Xanax PO 0.25 mg QHS MELODY Administration Amlodipine Besylate 2.5 mg 04/30/18 10:00 05/01/18 10:02 Norvasc PO 2.5 mg DAILY MELODY Administration Aspirin 81 mg 04/30/18 08:00 05/01/18 08:30 Aspirin, Baby PO 81 mg DAILY@0800 MELODY Administration Bupropion HCl 150 mg 04/30/18 10:00 05/01/18 10:02 Wellbutrin Xl PO 150 mg DAILY MELODY Administration Clopidogrel Bisulfate 75 mg 04/30/18 10:00 05/01/18 10:02 Plavix PO 75 mg DAILY MELODY Administration Heparin Sodium (Porcine) 5,000 unit 04/29/18 22:00 05/01/18 05:01 Heparin Na SC 5,000 unit Q8 MELODY Administration Sodium Chloride 1,000 mls @ 100 mls/hr 04/30/18 07:45 05/01/18 10:02 IV 100 mls/hr .Q10H MELODY Administration Levothyroxine Sodium 75 mcg 04/30/18 06:00 05/01/18 05:01 Synthroid PO 75 mcg DAILY@0600 MELODY Administration Losartan Potassium 100 mg 04/30/18 10:00 05/01/18 10:02 Cozaar PO 100 mg DAILY MELODY Administration Magnesium Hydroxide 30 ml 04/29/18 16:35 Milk Of Magnesia PO DAILY PRN PRN Constipation Potassium Chloride 40 meq 04/29/18 19:00 05/01/18 08:29 K-Dur PO 40 meq BIDCM MELODY Administration Sodium Chloride 5 - 30 ml 04/29/18 16:40 05/01/18 01:07 IV 10 ml UD PRN Administration SALINE FLUSH Venlafaxine HCl 150 mg 04/30/18 10:00 05/01/18 10:02 Effexor Xr PO 150 mg DAILY MELODY Administration Assessment/Plan All Active Problems (Last Reviewed 05/01/18 @ 13:14 by Moises Angelo MD) Slurred speech (Acute) Acute left pontine infarct complicated by history of falls likely due to severe peripheral neuropathy likely idiopathic: Goal of therapy is protestant of prior level of functional independence so that she can return home. She currently lives alone. Sickle therapy for gait and balance Occupational Therapy for ADLs Speech therapy for dysarthria Aspirin and Plavix Outpatient sleep study Permissive hypertension until 05/04/18 DVT prophylaxis Bowel protocol
--- NOTE | 2018-05-01 13:17 | HP.PCM_ITS ---
History of Present Illness Date of Admission: 05/01/18 Chief Complaint: Slurred speech and left leg pain The patient is a 77 year old F who fell in her bathroom approximately 1 month ago, has had pain and was ultimately diagnosed with a left ankle fracture which was treated nonoperatively. She may have seen Dr. Murphy for this however the family is not clear. She was having difficulty at home and was admitted to a local intermediate for convalescence. 04/29/2018 at about 8 AM 1 of her daughters noted some slurred speech and she was brought to the hospital. She denies any other symptoms and slurred speech. There is some emotionality today but she and her daughter indicates that this is not new and is due to some intercurrent stress due to her illness as well as her 's illness. She says she has a history of borderline diabetes but does not know her sugars, her blood pressures have been only mildly elevated at 130-150 systolic, and she has untreated obstructive sleep apnea last sleep study was about 4 years ago. She denies any weakness otherwise, no double vision, blurred vision, or pain. Denies any triggers otherwise. She was diagnosed with a left pontine stroke by MRI, causing dysarthria and very mild right upper extremity weakness which has stabilized. Stroke workup was otherwise negative, now admitted to the rehab unit for further rehabilitation so that she can return home to her previous level of functional independence. per admit h&p:The patient is a 77 year old F with a PMH of HTN who was admitted through the ED on 04/29/18 with a complaint of slurred speech which started this morning. Patient is currently a patient in a SNF fo/a of right ankle fracture. S he noted that she had slurring of her speech this morning. She couldnt say the exact time she noticed it, but whilst eating breakfast this morning, it wasnt present. Slurring of speech worsened so her daughter decided to bring her in to the hospital today. She had a mild headache yesterday, but denied any fever, chills, palpitations, SOB, lightheadedness, dizziness, ringing in her ears, abdominal pain, diarrhea or vomiting. EKG done in the ED showed RBBB and no acute ST changes. CT head was negative for any acute intracranial pathology. Labs were significant for sodium of 132, but was otherwise unremarkable. She is being admitted for stroke workup Past Medical History Past Medical History (Chronic Problems): Chronic Problems (Last Reviewed 05/01/18 @ 13:14 by Moises Angelo MD) Hypokalemia (Chronic) Presence of aortocoronary bypass graft (Chronic) CABG X 2 CAN-LAD, SVG-CX 06/11/2014 @ [facility] per Dr. Sutton Atherosclerotic heart disease of [place] coronary artery without angina pectoris (Chronic) Presence of coronary angioplasty implant and graft (Chronic) IVUS left main 06/07/2014, PCI-FAREED Prox & Mid LAD 04/13/2015 Paroxysmal atrial fibrillation (Chronic) Dyspnea on exertion (Chronic) Dizziness (Chronic) Near syncope (Chronic) Stenosis of right carotid artery (Chronic) Right bundle branch block (Chronic) Anxiety (Chronic) Hyperlipidemia (Chronic) Hypertension (Chronic) Hypothyroidism (Chronic) CVA (cerebral vascular accident) (Chronic) MRI demonstrated an acute infarct in the right thalamus and left parietal region. 01/2017 Medical History: Medical History (Last Reviewed 05/01/18 @ 13:14 by Moises Angelo MD) Hypokalemia (Chronic) E87.6 Atherosclerotic heart disease of [place] coronary artery without angina pectoris (Chronic) I25.10 Paroxysmal atrial fibrillation (Chronic) I48.0 Stenosis of right carotid artery (Chronic) I65.21 Right bundle branch block (Chronic) I45.10 Hyperlipidemia (Chronic) E78.5 Hypertension (Chronic) I10 Hypothyroidism (Chronic) E03.9 CVA (cerebral vascular accident) (Chronic) I63.9 MRI demonstrated an acute infarct in the right thalamus and left parietal region. 01/2017 Allergies atorvastatin Allergy (Verified 11/06/17 11:23) Unknown codeine Allergy (Verified 11/06/17 11:23) Unknown levofloxacin [From Levaquin] Allergy (Verified 11/06/17 11:23) Unknown Penicillins Allergy (Verified 11/06/17 11:23) Unknown pravastatin Allergy (Verified 11/06/17 11:23) myalgia Sulfa (Sulfonamide Antibiotics) Allergy (Verified 11/06/17 11:23) Unknown Home Medications: Ambulatory Orders Medication Instructions Recorded RX: Levothyroxine [Synthroid] 75 mcg PO DAILY 06/07/14 RX: ALPRAZolam [Xanax] 0.25 mg PO DAILY 04/29/18 RX: Amlodipine Besylate [Norvasc] 2.5 mg PO DAILY 04/29/18 RX: Bupropion HCl [Bupropion Xl] 150 mg PO DAILY 04/29/18 RX: Clopidogrel Bisulfate [Plavix] 75 mg PO DAILY 04/29/18 RX: Losartan Potassium [Cozaar] 100 mg PO DAILY 04/29/18 RX: Potassium Chloride [Klor-Con 40 meq PO BID 04/29/18 M20] RX: Venlafaxine XR [Effexor Xr] 150 mg PO DAILY 04/29/18 RX: Aspirin [Aspirin, Baby] 81 mg PO DAILY@0800 tab.chew 04/30/18 Surgical History: Surgical History (Last Reviewed 05/01/18 @ 13:14 by Moises Angelo MD) Presence of aortocoronary bypass graft (Chronic) Z95.1 CABG X 2 CAN-LAD, SVG-CX 06/11/2014 @ [facility] per Dr. Sutton Presence of coronary angioplasty implant and graft (Chronic) Z95.5 IVUS left main 06/07/2014, PCI-FAREED Prox & Mid LAD 04/13/2015 Surgical History: arthroscopy, knee, - - CABG, ankle surgery, kidney surgery, knee replacement Psychiatric History: No pertinent psych hx [facility]: [facility] Smoking Status: Never smoker Tobacco Use: Non-smoker Alcohol: None Drugs: None - *Family History Maternal Family History: Family History (Last Reviewed 05/01/18 @ 13:14 by Moises Angelo MD) Father Heart disease Sister Cancer Uncle CAD (coronary artery disease) History Items: - - strokers on mothers sides Paternal Family History: Family History (Last Reviewed 05/01/18 @ 13:14 by Moises Angelo MD) Father Heart disease Sister Cancer Uncle CAD (coronary artery disease) History Items: Heart Disease Review of Systems Constitutional: Denies: Chills, Fever, Weight Change HEENT: Denies: Head Aches, Sinus Congestion, Sinus Drainage Cardiovascular: Denies: Chest Pain, Palpitations Respiratory: Denies: Cough, Shortness of breath at rest, Sputum production Gastrointestinal: Denies: Abdominal Pain, Nausea, Vomiting Genitourinary: Denies: Dysuria Musculoskeletal: Reports: Joint Pain - Left ankle. Denies: Joint Tenderness Skin: Denies: Rash, Wounds Neurological: Reports: Change in Speech, Slurred speech, Incoordination. Denies: Blurred vision, Double vision, Confusion, Focal weakness, Headaches, Numbness, Tingling Psychiatric: Denies: Anxiety, Depression, Homicidal Ideations, Suicidal Ideati ons Hematologic/ Lymphatic: Denies: Easy Bruising, Easy Bleeding VTE Information - Inpt Only VTE Present on Admission: Yes VTE Pharm Prophylaxis ordered?: Yes - Physical Exam General: Alert, Oriented x3, Cooperative, No apparent distress Lungs: Clear to auscultation Cardiovascular: Regular rate Neurological: Cranial nerves II-XII grossly intact, Deep Tendon Reflexes 2+/4 and Symmetrical, Slurred Speech, Sensory exam intact to light touch and pain, - - Mild right upper extremity discoordination to forearm orbit testing Psych/Mental Status: Normal Affect Vital Signs Temp Pulse Resp BP Pulse Ox 36.8 C 73 18 157/86 H 96 05/01/18 12:26 05/01/18 12:26 05/01/18 12:26 05/01/18 12:26 05/01/18 12:26 Oxygen Delivery Method Room Air Weight: 85.4 kg Body Mass Index (BMI) 29.5 Finger Stick Blood Glucose 100 Intake and Output for Last 24 Hours 04/29/18 04/30/18 05/01/18 23:59 23:59 23:59 Intake Total 120 / 120 2387 / 2387 1368 / 1368 Output Total 1500 / 1500 1000 / 1000 Balance 120 / 120 887 / 887 368 / 368 Current Medications Generic Name Dose Route Start Last Admin Trade Name Freq PRN Reason Stop Dose Admin Alprazolam 0.25 mg 04/30/18 22:00 04/30/18 21:01 Xanax PO 0.25 mg QHS MELODY Administration Amlodipine Besylate 2.5 mg 04/30/18 10:00 05/01/18 10:02 Norvasc PO 2.5 mg DAILY MELODY Administration Aspirin 81 mg 04/30/18 08:00 05/01/18 08:30 Aspirin, Baby PO 81 mg DAILY@0800 MELODY Administration Bupropion HCl 150 mg 04/30/18 10:00 05/01/18 10:02 Wellbutrin Xl PO 150 mg DAILY MELODY Administration Clopidogrel Bisulfate 75 mg 04/30/18 10:00 05/01/18 10:02 Plavix PO 75 mg DAILY MELODY Administration Heparin Sodium (Porcine) 5,000 unit 04/29/18 22:00 05/01/18 05:01 Heparin Na SC 5,000 unit Q8 MELODY Administration Sodium Chloride 1,000 mls @ 100 mls/hr 04/30/18 07:45 05/01/18 10:02 IV 100 mls/hr .Q10H MELODY Administration Levothyroxine Sodium 75 mcg 04/30/18 06:00 05/01/18 05:01 Synthroid PO 75 mcg DAILY@0600 MELODY Administration Losartan Potassium 100 mg 04/30/18 10:00 05/01/18 10:02 Cozaar PO 100 mg DAILY MELODY Administration Magnesium Hydroxide 30 ml 04/29/18 16:35 Milk Of Magnesia PO DAILY PRN PRN Constipation Potassium Chloride 40 meq 04/29/18 19:00 05/01/18 08:29 K-Dur PO 40 meq BIDCM MELODY Administration Sodium Chloride 5 - 30 ml 04/29/18 16:40 05/01/18 01:07 IV 10 ml UD PRN Administration SALINE FLUSH Venlafaxine HCl 150 mg 04/30/18 10:00 05/01/18 10:02 Effexor Xr PO 150 mg DAILY MELODY Administration Assessment/Plan All Active Problems (Last Reviewed 05/01/18 @ 13:14 by Moises Angelo MD) Slurred speech (Acute) Acute left pontine infarct complicated by history of falls likely due to severe peripheral neuropathy likely idiopathic: Goal of therapy is evangelical of prior level of functional independence so that she can return home. She currently lives alone. Sickle therapy for gait and balance Occupational Therapy for ADLs Speech therapy for dysarthria Aspirin and Plavix Outpatient sleep study Permissive hypertension until 05/04/18 DVT prophylaxis Bowel protocol
--- NOTE | 2018-05-01 13:18 | REHABEVAL_ITS ---
Admission Information Status Changes from Prescreening?: No changes Identified Actual Problem List:: Falls, Pain, ALteration in Cmfrt, Mobility Impaired, Self Care Deficit, Diabetes, Hyperglycemia, BP, Hypertension, Ineffect.D/C Plan r/t Psy Potential Problem List:: DVT, Bleeding, Infection, UTI, Aspiration, Falls, Skin Integrity, Depression Risk of Complications DVT: LMWH, DEVIKA Hose, Sequential Compression Device Bleeding: Monitor Lab Values, Nursing to Teach Precautions for anti-coagulation therapy., Wound, if applicable, to be assessed every shift., Stroke patients assessed for lethargy or change in status. Infection: Clinical Staff to Monitor for S/S of infection:, S/S of infection include fever, redness, warmth, etc. Urinary Tract Infection: Monitor for frequency, burning, discomfort, or incontinence., Nursing will obtain urine sample for urinalysis and C&S when ordered. Aspiration: Clinical staff will monitor for coughing, drooling, congestion., Speech will evaluate swallowing and dsyphasia., Nursing will monitor patient swallowing during meals. Falls: Patient will be evaluated for Fall Precautions, Patient will be placed on Fall Precautions as indicated per protocol. Skin Breakdown: Nursing will assess skin daily using assessment tool., Nursing will place on Skin Breakdown Precautions as indicated. Pain: Clinical staff will assess patient's pain level per protocol., Medications will be given, if needed, and the pain level reassessed., Other methods: Ma ssage, distraction, decrease stimulus, etc. used PRN. Plan of Care Patient requires physician specializing in physical medicine and rehab oversight to provide close medical supervision of rehab issues including: Pain Management, Sleep Problems, Bowel and Bladder, Medical and co-morbidity Management, DVT prophylaxis, Rehabilitation Leadership, Coordination of treatment team Patient needs Physical Therapy: For a minimum of 1 hour, At least 5 out of 7 days Patient needs Physical Therapy to improve:: Mobility, Mobility, Mobility, Strengthening, Transfers, Stretching, ROM, Endurance, Stairs, Gait, Balance Patient needs Occupational Therapy: For a minimum of 1 hour, At least 5 out of 7 days Patient needs Occupational Therapy to improve ADL's incl.: Eating, Grooming, Bathing, Dressing, Toileting, Toilet transfers, Community Reintegration, Higher functioning activities, Household tasks, Adaptive Equipment, Splinting, Other activities as determined Patient requires speech therapy: For a minimum of 1 hour, At least 5 out of 7 days Patient requires speech therapy for: Swallowing, Cognition, Language Skills, Compensatory Strategies Patient requires 24/ Rehabilitation Nursing for: Pain Issues, Identifying and preventing risk factors, Monitoring and reporting current medical conditions, Assisting with ambulation, transfer, and all ADL's, Teaching patients about disease process and medications, Family teaching, Providing safe environment, Bowel and Bladder Issues, Skin integrity, Medication Management Patient needs Flight Operations Manager/ Case Management for: Discharge Planning, Arranging Home Equipment or Services, Family Interventions Patient needs Dietary and Nutrition Services for: Adequate Nutrition, Nutritional Supplements, Nutritional Education Goals Patient will remain: free from falls, or injury at time of discharge. Patient will perform bed mobility at: MOD I level of assist. Patient will complete transfers from bed to chair at: MOD I level of assist. Patient will ambulate: 100 feet, with MOD I assist, with LRD Patient will complete upper body dressing at: MOD I level of assist. Patient will complete lower body dressing at: MOD I level of assist. Patient will complete toileting at: MOD I level of assist. Patient will perform bathing at: MOD I level of assist. Patient will complete grooming at: MOD I level of assist. Patient will complete home management skills at: MOD I level of assist. Patient will achieve: 12 stairs, at MOD I assist Patient will have pain level of: of 3 or less Patient's skin will: remain intact, free from infection. Patient will receive: adequate nutrition. Discharge Planning Pt Prognosis for Sig. Practical Improv. w/in Reasonable Time: Good Anticipated D/C Destination: Home with Outpt Therapy Was Preadmission Assessment Accurate?: Yes
--- NOTE | 2018-05-01 14:13 | CASEMGMT ---
Spoke with Sanna in the rehab unit and patient can go to rehab today. SW called patient's daughter and let her know. MARANDA also notified RN and patient. Plan: [facility] 4th floor rehab unit Maryjo MARCUM
== END 2018-05-01 15:48 | DRG 65 ==
LOC: ED 14:22 → PCU 15:40
PROVIDERS: Admitting Provider Student in an Organized Health Care Education/Training Program; Emergency Provider Emergency Medicine; Family Provider Internal Medicine; PCP Internal Medicine; Visit Provider Internal Medicine
DX: I63.9 Cerebral infarction, unspecified (principal); E87.1 Hypo-osmolality and hyponatremia; S82.892D Other fracture of left lower leg, subsequent encounter for closed fracture with routine healing; W19.XXXD Unspecified fall, subsequent encounter; R29.702 NIHSS score 2; R47.1 Dysarthria and anarthria; G62.9 Polyneuropathy, unspecified; E03.9 Hypothyroidism, unspecified; E78.5 Hyperlipidemia, unspecified; I10 Essential (primary) hypertension; I25.10 Atherosclerotic heart disease of native coronary artery without angina pectoris; Z95.5 Presence of coronary angioplasty implant and graft; R29.810 Facial weakness; Z95.1 Presence of aortocoronary bypass graft; I45.10 Unspecified right bundle-branch block
CPT/HCPCS: 36415; 70450; 70544; 70549; 70551; 80048; 80061; 81001; 82962; 83036; 85025; 85610; 85730; 92523; 93005; 93306; 97162; 97165; 97530; 99285; A9585; J7030; A4216

== ENCOUNTER 2018-05-01 16:30 | Inpatient (IN) | payer MEDICARE, OTHER, SELFPAY ==
[2018-05-01 17:52] VITALS: BP 144/91; PULSE 75; RESP 18; TEMP 36.8; O2SAT 95; BMI 30.4
[2018-05-01] MEDS: ALPRAZolam 0.25 MG Tablet PO (19:47)
[2018-05-01] MEDS: Senna/Docusate Sodium 1 Tablet 2 TABLET PO (19:47)
[2018-05-01 20:22] VITALS: BP 155/89; PULSE 72; RESP 18; TEMP 36.7; O2SAT 94
[2018-05-01 22:12] VITALS: BMI 30.4
[2018-05-02] MEDS: Levothyroxine 75 MCG Tablet PO (06:30)
[2018-05-02] MEDS: Enoxaparin 40 MG/0.4 ML Syringe SC (06:30)
[2018-05-02 07:02] LABS: Absolute Lymphocyte Count 1.22 X10^3/ul (0.83-4.51); Absolute Neutrophil Count 2.9 X10^3/uL (2.0-7.7); Basophil# 0.02 X10^3/uL; Basophil% 0.4 % (0-1); Eosinophil# 0.17 X10^3/uL; Eosinophils% 3.3 % (0-5); Hematocrit 39.5 % (37-47); Hemoglobin 13.1 g/dl (12.0-15.0); Lymphocyte # 1.22 X10^3/ul (4.0); Mean Corp Hgb Conc 33.2 g/gl (32-36); Mean Corpuscular Volume 96.3 fL (81-99); Mean Platelet Vol. 8.9 fl (6.2-12.0); Monocyte# 0.75 X10^3/uL; Monocyte% 14.8 % (0-10); Neutrophil # 2.91 X10^3/uL (2.7-7.7); Neutrophil % 57.3 % (47-70); Platelet Count 282 K/mm3 (150-450); RBC Distribution Width CV 14.1 % (11.6-14.6); RBC Distribution Width SD 49.3 fl (35.1-43.9); White Blood Count 5.1 K/mm3 (4.4-11.0)
[2018-05-02 07:17] LABS: POSITIVE COUNT NO; POSITIVE DIFFERENTIAL NO; POSITIVE MORPHOLOGY NO
[2018-05-02 07:31] LABS: ALB/GLOB Ratio 0.9 RATIO (0.9-2.4); AST(SGOT) 18 U/L (15-37); Alanine Aminotransfer ALT/SGPT 24 U/L (13-56); Albumin, Serum 3.4 g/dL (3.2-5.0); Alkaline Phosphatase 91 U/L (45-117); Anion Gap 8 (5-15); BUN 9 mg/dL (7-18); Calcium,Total 8.7 mg/dL (8.5-10.1); Chloride 95 mmol/L (98-107); Creatinine, Serum 0.75 mg/dL (0.55-1.02); EST Glomerular Filtration Rate 80 mL/min (>60); Est Glom Filt Rate - Afr Amer 96 mL/min (>60); Globulin 3.9 g/dL (2.2-4.2); Glucose 87 mg/dL (74-106); Potassium 4.2 mmol/L (3.5-5.1); Protein, Total 7.3 g/dL (6.4-8.2); Sodium Level 130 mmol/L (136-145)
[2018-05-02] MEDS: Aspirin 81 MG TAB.CHEW PO (07:42)
[2018-05-02] MEDS: Venlafaxine XR 150 MG Capsule PO (07:43)
[2018-05-02] MEDS: Clopidogrel Bisulfate 75 MG Tablet PO (07:43)
[2018-05-02] MEDS: Senna/Docusate Sodium 1 Tablet 2 TABLET PO ×2 (07:45→20:31)
[2018-05-02] MEDS: buPROPion (XL) 150 MG TABLET.XL PO (07:47)
[2018-05-02 07:55] VITALS: BP 164/91; PULSE 71; RESP 16; TEMP 36.5; O2SAT 96
[2018-05-02 10:08] VITALS: O2SAT 94
[2018-05-02 14:29] VITALS: BMI 30.4
--- NOTE | 2018-05-02 15:30 | NURSING ---
Patient crying and upset about family issues while family was visiting. Patient is pleasantly confused. Reported to staff that her wants her to come home soon. Patient was brought up to the nurses station for staff 1:1 and helped staff pass out candy to children who came to visit. Crying ceased after 20 minutes.
[2018-05-02 19:40] VITALS: BP 150/88; PULSE 78; RESP 16; TEMP 36.8; O2SAT 94
[2018-05-02] MEDS: ALPRAZolam 0.25 MG Tablet PO (20:30)
[2018-05-03] MEDS: Levothyroxine 75 MCG Tablet PO (06:15)
[2018-05-03] MEDS: Enoxaparin 40 MG/0.4 ML Syringe SC (06:17)
[2018-05-03 07:07] VITALS: BP 132/70; PULSE 66; RESP 20; TEMP 36.6; O2SAT 95
[2018-05-03] MEDS: Clopidogrel Bisulfate 75 MG Tablet PO (08:10)
[2018-05-03] MEDS: Venlafaxine XR 150 MG Capsule PO (08:10)
[2018-05-03] MEDS: buPROPion (XL) 150 MG TABLET.XL PO (08:10)
[2018-05-03] MEDS: Aspirin 81 MG TAB.CHEW PO (08:10)
[2018-05-03] MEDS: Magnesium Hydroxide 30 ML UDC PO (08:41)
[2018-05-03] MEDS: Senna/Docusate Sodium 1 Tablet 2 TABLET PO (08:41)
[2018-05-03 13:49] VITALS: BMI 30.4
--- NOTE | 2018-05-03 15:28 | NURSING ---
Noncompliant with weight bearing precautions x 1 and reminded to not put weight on LLE and she verbalized understanding. Patient is forgetful and confused but easily reoriented.
--- NOTE | 2018-05-03 16:52 | PCM.PN.HOSP ---
Subjective: Patient was seen and examined. Denies any complains. Pain is controlled. Per nursing,been intermittently confused and sundowning. Vitals reviewed, blood pressure fluctuating, at goal for age Objective: Physical Exam General: Alert, Oriented x3, Cooperative HEENT: Atraumatic, PERRLA, EOMI, Normocephalic Neck: Supple, No JVD, Negative Carotid Bruits Lungs: Clear to auscultation, Normal air movement Cardiovascular: Regular rate, Regular Rhythm, Normal S1, Normal S2, No murmurs Abdomen: Bowel Sounds Present, Soft, Non Tender, Non-Distended Extremities: No clubbing, No cyanosis, No edema, Capillary Refill Less than 3 Seconds Skin: No rashes, No breakdown Musculoskeletal: No Tenderness to Palpation of Joints or Extremities, - - Right lower extremity in splint Neurological: Cranial nerves II-XII grossly intact, - - Dysarthria, mild aphasia Psych/Mental Status: Normal Affect, Appropriate Vitals/I&O's: Vital Signs Temp Pulse Resp BP Pulse Ox 97.9 F 66 20 H 132/70 H 95 05/03/18 07:07 05/03/18 07:07 05/03/18 07:07 05/03/18 07:07 05/03/18 07:07 Oxygen Flow Rate (L/min) 3 Oxygen Delivery Method Nasal Cannula Weight: 85.4 kg Body Mass Index (BMI) 30.4 Finger Stick Blood Glucose 100 Intake and Output for Last 24 Hours 05/01/18 05/02/18 05/03/18 23:59 23:59 23:59 Intake Total 240 / 240 480 / 480 Output Total 600 / 600 Balance -360 / -360 480 / 480 General: Alert, Cooperative, Confused HEENT: Atraumatic, PERRLA, EOMI, Normocephalic Oral: Moist Mucosa Neck: Supple, No JVD, Negative Carotid Bruits Lungs: Clear to auscultation, Normal air movement Cardiovascular: Regular rate, Regular Rhythm, Normal S1, Normal S2, No murmurs Abdomen: Bowel Sounds Present, Soft, Non Tender, Non-Distended, No Hepato-splenomegaly Extremities: - - Left lower leg in boots Skin: No rashes, No breakdown Musculoskeletal: Tenderness - For the left lower leg Lymphatic: No Cervical, Supraclavicular, or Inguinal Adenopathy Neurological: Cranial nerves II-XII grossly intact, Neuro grossly intact Psych/Mental Status: Normal Affect, Appropriate Current Medications Acetaminophen (Tylenol) 650 mg PO Q6H PRN PRN PRN Reason: Mild Pain (0-3/10)/Headache Alprazolam (Xanax) 0.25 mg PO QHS [facility] Last Admin: 05/02/18 20:30 Dose: 0.25 mg Aspirin (Aspirin, Baby) 81 mg PO DAILY@0800 [facility] Last Admin: 05/03/18 08:10 Dose: 81 mg Bisacodyl (Dulcolax) 10 mg RECTAL .PRN X 1 PRN PRN Reason: Constipation Bupropion HCl (Wellbutrin Xl) 150 mg PO DAILY [facility] Last Admin: 05/03/18 08:10 Dose: 150 mg Clopidogrel Bisulfate (Plavix) 75 mg PO DAILY [facility] Last Admin: 05/03/18 08:10 Dose: 75 mg Enoxaparin Sodium (Lovenox) 40 mg SC DAILY@0600 [facility] Last Admin: 05/03/18 06:17 Dose: 40 mg Levothyroxine Sodium (Synthroid) 75 mcg PO DAILY@0600 [facility] Last Admin: 05/03/18 06:15 Dose: 75 mcg Magnesium Hydroxide (Milk Of Magnesia) 30 ml PO .PRN X 1 PRN PRN Reason: Constipation Last Admin: 05/03/18 08:41 Dose: 30 ml [facility] ([facility] Last Admin: 05/03/18 16:43 Dose: 40 meq Senna/Docusate Sodium (Senokot-S, Yessy-Colace) 2 tablet PO BID [facility] Last Admin: 05/03/18 08:41 Dose: 2 tablet Venlafaxine HCl (Effexor Xr) 150 mg PO DAILY [facility] Last Admin: 05/03/18 08:10 Dose: 150 mg Medical Necessity - Tobacco Use Smoking Status: Never smoker Assessment/Plan All Active Problems (Last Reviewed 05/01/18 @ 13:14 by Moises Angelo MD) Slurred speech (Acute) 77 year old F past medical history of hypertension, hyperlipidemia, hypothyroidism, depression/anxiety admitted to inpatient rehab with debility after an acute left pontine infarct. 1. Debility related to Acute left pontine infarct, therapy ongoing, will continue per rehab recommendations. 2. Acute left pontine infarct, history of CVA, on aspirin, Plavix, not on statins because of severe allergies to statins 3. Chronic hyponatremia, remains stable at 130. 4. Hypertension, fairly controlled, not on any medications, will continue to monitor 5. Hyperlipidemia, not on statins due to severe allergy 6. Hypothyroidism, on levothyroxine 7. Depression/anxiety, continue 8. Recurrent falls, recent left ankle fracture, in boots 9. Cognitive impairment, likely vascular dementia, will continue to monitor patient, will encourage non-pharmacologic management, including sleep hygiene etc 10. DVT PPx- Lovenox SC Code Visit Inpatient E&M: 29337 Subs Hosp L2
[2018-05-03] MEDS: ALPRAZolam 0.25 MG Tablet PO (20:31)
[2018-05-03 22:00] VITALS: BP 152/95; PULSE 73; RESP 18; TEMP 36.4; O2SAT 95
[2018-05-04 00:40] VITALS: BMI 30.4
--- NOTE | 2018-05-04 01:47 | NURSING ---
REVIEWED AND AGREE WITH PROFESSOR OF CHEMISTRY'S FIM AND HANDOFF CHARTING.
[2018-05-04] MEDS: Enoxaparin 40 MG/0.4 ML Syringe SC (06:54)
[2018-05-04] MEDS: Levothyroxine 75 MCG Tablet PO (06:55)
[2018-05-04 08:40] VITALS: BP 125/82; PULSE 81; RESP 16; TEMP 36.8; O2SAT 92
[2018-05-04] MEDS: buPROPion (XL) 150 MG TABLET.XL PO (08:42)
[2018-05-04] MEDS: Clopidogrel Bisulfate 75 MG Tablet PO (08:42)
[2018-05-04] MEDS: Aspirin 81 MG TAB.CHEW PO (08:42)
[2018-05-04] MEDS: Venlafaxine XR 150 MG Capsule PO (08:42)
[2018-05-04] MEDS: Tamsulosin HCl 0.4 MG Capsule PO (13:28)
--- NOTE | 2018-05-04 14:00 | RAD_ITS ---
STUDY: SWALLOWING STUDY REASON FOR EXAM: Female, 77 years old. Dysphagia. Status post pontine infarct. TECHNIQUE: The examination was performed with Speech Pathology in attendance. Under fluoroscopic observation, the patient ingested thin barium, thick barium, barium pudding, and barium coated cracker. FLUOROSCOPY TIME: 3:09 minutes/seconds. [id number] fluoroscopic images. RADIOLOGIST INVOLVEMENT: Radiologist was present and providing direct supervision. COMPARISON: None. FINDINGS: The following was observed during swallowing of the various mixtures of barium: Thin Barium: Silent aspiration with the thin liquids. Thick Barium: Silent aspiration with ingestion of nectar thickened and honey thickened liquids. Barium Pudding: There was no evidence of aspiration or laryngeal penetration. RAD/Swallowing Function w/Video IMPRESSION: Silent aspiration with ingestion of thin liquids, nectar thickened and honey thickened liquids. The swallow study findings were discussed with the patient by the speech pathologist at the conclusion of the examination. Please see speech pathology report for more information and recommendations. Electronically Signed: Panfilo Gonsalves MD at 15:20 EDT Tel [phone], Service support ,
--- NOTE | 2018-05-04 14:00 | SP.MBSS_ITS ---
PRIMARY / SECONDARY DIAGNOSIS: dysphagia (R13.12) REFERRING PHYSICIAN: Dr. Moises Angelo MD CURRENT DIET: regular textures, thin liquids DENTITION: WFL MENTAL STATUS: sufficient for participation RESPIRATORY STATUS: O2 via room air PREVIOUS MODIFIED BARIUM SWALLOW STUDY: 01/30/2017 MBS revealed mild oral dysphagia (R13.11) without penetration or aspiration. REASON FOR REFERRAL: Patient is a 77 year old female referred for a modified barium swallow (MBS) study to objectively assess the Patients oropharyngeal swallow function under fluoroscopy secondary to an acute left paramedian pontine and medullary infarction with prior cerebrovascular accidents involving the javi, basal ganglia, right thalamus, and cerebellum, with higher clinical risk factors for silent aspiration (due to location of infarction, mild diurnal sialorrhea, and performance during 3oz water challenge) and aspiration related pneumonia due to an elevated A2DS2 Score (5 - 23% chance stroke associated pneumonia). Patient reports persistent globus sensation with occasional acidic return to the oral cavity (Reflux Symptom Inventory (RSI): 29; >13 may be indicative of significant reflux); persistent hypogeusia with early satiety (fullness) and reduced appetite, though has not demonstrated any recent weight fluctuations (187lbs in January; 188 currently). Patient denies odynophagia or substernal discomfort, denies persistent prandial / post prandial coughing / throat clearing with ingestion of smaller bolus volumes (self-induced). Moderate dysarthria with shallow breath support and mild hypophonia; horse vocal quality. Mild reported xerostomia with reported occasional diurnal sialorrhea at baseline that has mildly increased post CVA with left sided spillage (Sialorrhea Scoring Scale:3). Mild dystussia upon volitional and later elicited cough response. Modified Deysi Score: 4 (moderate / severe disability). ADDITIONAL OBJECTIVE ASSESSMENT RESULTS: 04/30/2018 MRI revealed tiny acute infarcts involving the left paramedian javi and medulla with chronic white matter ischemic changes of the javi; prominent perivascular spaces (PVS) involving the basal ganglia; abnormal signal in the right thalamus possibly related to previous ischemia; multiple small areas of encephalomalacia in the cerebellum and probably represent small old infarcts. MEDICAL HISTORY: Prior cerebral vascular accident involving the right thalamus and left parietal region (01/2017), dyspnea on exertion, atherosclerotic heart disease of [place] coronary artery without angina pectoris, status post aortocoronary bypass graft and coronary angioplasty implant and graft, stenosis of right carotid artery, right bundle branch block, paroxysmal atrial fibrillation, hypertension, hyperlipidemia, hypothyroidism, hypokalemia, dizziness, near syncope, anxiety. STUDY FINDINGS: Patient participated in a Modified Barium Swallow (MBS) study on 03/23/2018. Dr. Gonsalves was the radiologist present for this evaluation. This study was recorded in the lateral view and images were sent to PACs for storage. The following consistencies were presented to this patient for analysis of oropharyngeal swallow function: thin liquids, nectar thickened liquids, honey thickened liquids, and pudding textures. Results of the MBS are as follows: PENETRATION / ASPIRATION SCALE (FIGUEREDO): 1 = does not enter airway 2 = enters airway/above vocal folds/ejected 3 = enters airway/above vocal folds/not ejected 4 = enters airway/contacts vocal folds/ejected 5 = enters airway/contacts vocal folds/not ejected 6 = enters airway/below vocal folds/ejected 7 = enters airway/below vocal folds/not ejected despite effort 8 = enters airway/below vocal folds/no effort VIDEOFLOROSCOPIC SCALE SCORE (FIGUEREDO): Grade I = aspiration of material that has penetrated into the laryngeal vestibule, intact cough reflex Grade II = aspiration < 10 % of the bolus, intact cough reflex Grade III = aspiration of < 10 % of the bolus, reduced cough reflex or aspiration of > 10 % of the bolus, intact cough reflex Grade IV = aspiration of > 10 % of the bolus, reduced cough reflex PENETRATION / ASPIRATION SCALE (SCORE) WITH VIDEOFLOROSCOPIC SCALE SCORE: Thin liquid - 5 mL tsp.: 8 ? Grade IV Thin liquids via cup (single sip): 5 Thin liquids via cup (single sip): 8 ? Grade III [place] thickened liquids via cup (single sip): 1 [place] thickened liquids via cup (single sip): 1 [place] thickened liquids via cup (single sip): 6 ? Grade III Honey thickened liquids via cup (single sip): 1 Honey thickened liquids via cup (single sip): 1 Honey thickened liquids via cup (single sip): 8 ? Grade III Pudding via spoon: 1 Pudding via spoon: 1 Pudding via spoon: 2 IMPRESSION: DIAGNOSIS: moderate to severe oropharyngeal dysphagia (R13.12) ORAL PHASE CHARACTERIZED BY: LABIAL SEAL: no labial escape TONGUE CONTROL DURING BOLUS MANIPULATION: occasional escape to lateral buccal cavity/floor of mouth BOLUS PREPARATION / MASTICATION: did not test BOLUS TRANSPORT / LINGUAL MOTION: brisk tongue motion ORAL RESIDUE: trace residue lining oral structures PHARYNGEAL PHASE CHARACTERIZED BY: INITIATION OF PHARYNGEAL SWALLOW: bolus head in pyriforms at first hyoid excursion SOFT PALATE ELEVATION: no bolus between soft palate and pharyngeal wall LARYNGEAL ELEVATION: complete superior movement of thyroid cartilage with complete approximation of arytenoids cartilage to epiglottic petiole ANTERIOR HYOID EXCURSION: partial anterior movement EPIGLOTTIC MOVEMENT: complete epiglottic inversion LARYNGEAL VESTIBULE CLOSURE AT HEIGHT OF SWALLOW: incomplete laryngeal vestibule closure with narrow column of air/contrast in laryngeal vestibule PHARYNGEAL STRIPPING WAVE: pharyngeal stripping wave present / complete PHARYNGOESOPHAGEAL SEGMENT OPENING: partial distension and partial duration; partial obstruction of flow TONGUE BASE RETRACTION: trace column of contrast between tongue base and posterior pharyngeal wall PHARYNGEAL RESIDUE: trace residue within or on pharyngeal structures ESOPHAGEAL PHASE CHARACTERIZED BY: ESOPHAGEAL BOLUS CLEARANCE IN THE UPRIGHT POSITION: could not view DIET TEXTURE RECOMMENDATIONS: Will recommend a pureed textured, pudding thickened liquid diet. COMPENSATORY STRATEGIES RECOMMENDED: Supervision with assistance as needed, reduced bolus volumes with all intake via spoon, no straws, check for left buccal pocketing, seated upright at 90 degrees during PO intake, remain upright for 30-60 minutes post meal (GERD precaution), medications crushed with purees. INTERPRETATION OF RESULTS: Patient presents with moderate to severe oropharyngeal dysphagia (R13.12) secondary to an 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 Unable to fully assess the oral preparatory phase, as pharyngeal onset dyssynchrony and persistent penetration placed the Patient at too high of risk for prandial aspiration and possible asphyxiation with suboptimal mastication. Oral transportation phase marked by intermittent buccal pocketing with thin liquids that lacked clinical significance under fluoroscopy though may increase throughout ingestion of larger quantities. Pharyngeal phase primarily marked by rather significant pharyngeal dyssynchrony with fluctuations in both pharyngeal swallow onset timing and pharyngeal bolus dwell time (between 1-3 seconds) with most significant dyssynchrony leading to pre-prandial penetration to the vocal folds and subsequent SILENT aspiration that occurred across all liquid viscosities; and to a lesser extent reduced anterior hyoid excursion resulting in poor laryngeal vestibule closure / pressure and inconsistent laryngeal vestibule pressure generated to fully expel penetrated material. Absent elicited cough response (atussia) with completely ineffective elicited cough to expel penetrated material / laryngotracheal aspiration. Mild cricopharyngeal bar located at the C-6 / C-7 level, no effect on pharyngoesophageal motility. Patient noted to overtly aspirate during trials of thin, nectar, and honey thickened liquids, suggesting clinical assessment at bedside relying on identification of classic overt signs and symptoms of aspiration may be sufficient to determine appropriateness for PO texture upgrade. RECOMMENDATIONS: Would strongly discourage advancement past pudding thickened liquids without completion of a repeat modified barium swallow study due to the extent of aspirate identified that was SILENT in nature. Recommend a repeat modified barium swallow study within 1-2 weeks (if clinically appropriate) to further assess the presence and extent of silent and overt aspiration prior to advancement to thin liquids. Would consider this Patient to be at high risk for malnutrition and dehydration due to the recommended diet texture restrictions, with anticipated reduced pleasure leading to smaller PO intake quantities, in addition to likely increase in satiety with recommended thicker viscosities. This Patient would be an excellent candidate for the [place] Free Water Protocol (FFWP) to facilitate improved liquid intake between following Patient training. Patient requires intensive skilled speech-language intervention targeting continued diet texture management; training and implementation of recommended compensatory strategies; training / implementation of recommended oropharyngeal strengthening exercises to facilitate improved oropharyngeal strength and coordination; training / implementation / and Patient education regarding implementation of the FFWP; and Patient / caregiver training targeting meal preparation / thickened liquid preparation if unable to advance to baseline diet textures prior to discharge. Strongly recommend frequent and dedicated usage of the Patients incentive spirometer. ADDITIONAL COMMENTS/RECOMMENDATIONS: Results and recommendations were discussed with the Patient immediately following MBS completion, with the Patient verbalizing understanding and agreement with all recommendations and education provided. IMAGE COUNT: [id number] Rosales Owusu M.A., CCC-CE[employer] [facility] Speech-Language Pathology Department [email or web address]
--- NOTE | 2018-05-04 16:17 | CHAPLAIN ---
patient is sleeping and so visit is postponed
--- NOTE | 2018-05-04 16:53 | PCM.PN.NEU ---
Subjective: Patient seen and examined. No acute events overnight. Tolerating therapy. Did have some urine retention of 643ml, was straight cath, start Flomax, continue to do bladder scans. Denies any blurry vision or double vision. - Physical Exam General: Alert, Oriented x3, Cooperative HEENT: Atraumatic, PERRLA, EOMI, Normocephalic Neck: Supple, No JVD, Negative Carotid Bruits Lungs: Clear to auscultation, Normal air movement Cardiovascular: Regular rate, No murmurs Abdomen: Bowel Sounds Present, Soft, Non Tender Extremities: No edema, Capillary Refill Less than 3 Seconds Skin: No rashes, No breakdown Musculoskeletal: No Tenderness to Palpation of Joints or Extremities Neurological: Cranial nerves II-XII grossly intact Psych/Mental Status: Normal Affect, Appropriate, Alert and oriented to time, place, person, mood and affect Vital Signs Temp Pulse Resp BP Pulse Ox 98.3 F 81 16 125/82 H 92 05/04/18 08:40 05/04/18 08:40 05/04/18 08:40 05/04/18 08:40 05/04/18 08:40 Oxygen Flow Rate (L/min) 3 Oxygen Delivery Method Room Air Weight: 84.8 kg Body Mass Index (BMI) 30.4 Finger Stick Blood Glucose 100 Intake and Output for Last 24 Hours 05/02/18 05/03/18 05/04/18 23:59 23:59 23:59 Intake Total 240 / 240 720 / 720 600 / 600 Output Total 600 / 600 925 / 925 Balance -360 / -360 720 / 720 -325 / -325 Active Medications Acetaminophen (Tylenol) 650 mg PO Q6H PRN PRN PRN Reason: Mild Pain (0-3/10)/Headache Alprazolam (Xanax) 0.25 mg PO QHS [facility] Last Admin: 05/03/18 20:31 Dose: 0.25 mg Aspirin (Aspirin, Baby) 81 mg PO DAILY@0800 [facility] Last Admin: 05/04/18 08:42 Dose: 81 mg Bisacodyl (Dulcolax) 10 mg RECTAL .PRN X 1 PRN PRN Reason: Constipation Bupropion HCl (Wellbutrin Xl) 150 mg PO DAILY [facility] Last Admin: 05/04/18 08:42 Dose: 150 mg Clopidogrel Bisulfate (Plavix) 75 mg PO DAILY [facility] Last Admin: 05/04/18 08:42 Dose: 75 mg Enoxaparin Sodium (Lovenox) 40 mg SC DAILY@0600 [facility] Last Admin: 05/04/18 06:54 Dose: 40 mg Levothyroxine Sodium (Synthroid) 75 mcg PO DAILY@0600 [facility] Last Admin: 05/04/18 06:55 Dose: 75 mcg Magnesium Hydroxide (Milk Of Magnesia) 30 ml PO .PRN X 1 PRN PRN Reason: Constipation Last Admin: 05/03/18 08:41 Dose: 30 ml [facility] Last Admin: 05/04/18 08:42 Dose: 40 meq Senna/Docusate Sodium (Senokot-S, Yessy-Colace) 2 tablet PO BID [facility] Last Admin: 05/04/18 08:37 Dose: Not Given Tamsulosin HCl (Flomax) 0.4 mg PO DAILY@1730 [facility] Last Admin: 05/04/18 13:28 Dose: 0.4 mg Venlafaxine HCl (Effexor Xr) 150 mg PO DAILY [facility] Last Admin: 05/04/18 08:42 Dose: 150 mg Medical Necessity - Tobacco Use Smoking Status: Never smoker Assessment/Plan All Active Problems (Last Reviewed 05/01/18 @ 13:14 by Moises Angelo MD) Slurred speech (Acute) Acute left pontine infarct complicated by history of falls likely due to severe peripheral neuropathy likely idiopathic: Goal of therapy is presybeterian of prior level of functional independence so that she can return home. She currently lives alone. - Physical therapy for gait and balance - Occupational Therapy for ADLs - Speech therapy for dysarthria - Aspirin and Plavix - Outpatient sleep study - Permissive hypertension until 05/04/18, then maintain BP less than 130/80 - DVT prophylaxis - Bowel protocol
--- NOTE | 2018-05-04 16:58 | PN.NEURO_ITS ---
Subjective: Patient seen and examined. No acute events overnight. Tolerating therapy. Did have some urine retention of 643ml, was straight cath, start Flomax, continue to do bladder scans. Denies any blurry vision or double vision. - Physical Exam General: Alert, Oriented x3, Cooperative HEENT: Atraumatic, PERRLA, EOMI, Normocephalic Neck: Supple, No JVD, Negative Carotid Bruits Lungs: Clear to auscultation, Normal air movement Cardiovascular: Regular rate, No murmurs Abdomen: Bowel Sounds Present, Soft, Non Tender Extremities: No edema, Capillary Refill Less than 3 Seconds Skin: No rashes, No breakdown Musculoskeletal: No Tenderness to Palpation of Joints or Extremities Neurological: Cranial nerves II-XII grossly intact Psych/Mental Status: Normal Affect, Appropriate, Alert and oriented to time, place, person, mood and affect Vital Signs Temp Pulse Resp BP Pulse Ox 98.3 F 81 16 125/82 H 92 05/04/18 08:40 05/04/18 08:40 05/04/18 08:40 05/04/18 08:40 05/04/18 08:40 Oxygen Flow Rate (L/min) 3 Oxygen Delivery Method Room Air Weight: 84.8 kg Body Mass Index (BMI) 30.4 Finger Stick Blood Glucose 100 Intake and Output for Last 24 Hours 05/02/18 05/03/18 05/04/18 23:59 23:59 23:59 Intake Total 240 / 240 720 / 720 600 / 600 Output Total 600 / 600 925 / 925 Balance -360 / -360 720 / 720 -325 / -325 Active Medications Acetaminophen (Tylenol) 650 mg PO Q6H PRN PRN PRN Reason: Mild Pain (0-3/10)/Headache Alprazolam (Xanax) 0.25 mg PO QHS [facility] Last Admin: 05/03/18 20:31 Dose: 0.25 mg Aspirin (Aspirin, Baby) 81 mg PO DAILY@0800 [facility] Last Admin: 05/04/18 08:42 Dose: 81 mg Bisacodyl (Dulcolax) 10 mg RECTAL .PRN X 1 PRN PRN Reason: Constipation Bupropion HCl (Wellbutrin Xl) 150 mg PO DAILY [facility] Last Admin: 05/04/18 08:42 Dose: 150 mg Clopidogrel Bisulfate (Plavix) 75 mg PO DAILY [facility] Last Admin: 05/04/18 08:42 Dose: 75 mg Enoxaparin Sodium (Lovenox) 40 mg SC DAILY@0600 [facility] Last Admin: 05/04/18 06:54 Dose: 40 mg Levothyroxine Sodium (Synthroid) 75 mcg PO DAILY@0600 [facility] Last Admin: 05/04/18 06:55 Dose: 75 mcg Magnesium Hydroxide (Milk Of Magnesia) 30 ml PO .PRN X 1 PRN PRN Reason: Constipation Last Admin: 05/03/18 08:41 Dose: 30 ml Potassium [facility] ([facility]) [facility] Last Admin: 05/04/18 08:42 Dose: 40 meq Senna/Docusate Sodium (Senokot-S, Yessy-Colace) 2 tablet PO BID [facility] Last Admin: 05/04/18 08:37 Dose: Not Given Tamsulosin HCl (Flomax) 0.4 mg PO DAILY@1730 [facility] Last Admin: 05/04/18 13:28 Dose: 0.4 mg Venlafaxine HCl (Effexor Xr) 150 mg PO DAILY [facility] Last Admin: 05/04/18 08:42 Dose: 150 mg Medical Necessity - Tobacco Use Smoking Status: Never smoker Assessment/Plan All Active Problems (Last Reviewed 05/01/18 @ 13:14 by Moises Angelo MD) Slurred speech (Acute) Acute left pontine infarct complicated by history of falls likely due to severe peripheral neuropathy likely idiopathic: Goal of therapy is nondenominational of prior level of functional independence so that she can return home. She currently lives alone. - Physical therapy for gait and balance - Occupational Therapy for ADLs - Speech therapy for dysarthria - Aspirin and Plavix - Outpatient sleep study - Permissive hypertension until 05/04/18, then maintain BP less than 130/80 - DVT prophylaxis - Bowel protocol
[2018-05-04 17:00] VITALS: BMI 30.4
[2018-05-04 20:25] VITALS: BP 153/84; PULSE 73; RESP 18; TEMP 36.7; O2SAT 94; BMI 30.4
[2018-05-04] MEDS: ALPRAZolam 0.25 MG Tablet PO (20:38)
[2018-05-04 21:25] VITALS: RESP 18; O2SAT 94
--- NOTE | 2018-05-05 04:33 | NURSING ---
Reviewed and agree with [employer]ESSION[employer] documentation and FIMs charting.
[2018-05-05] MEDS: Enoxaparin 40 MG/0.4 ML Syringe SC (05:08)
[2018-05-05] MEDS: Levothyroxine 75 MCG Tablet PO (05:09)
[2018-05-05 06:48] VITALS: O2SAT 94
--- NOTE | 2018-05-05 07:03 | NURSING ---
0530. staff to assist with adls and pt transferred to the bsc. pt reports that she could not void and denied any feelings of fullness and discomfort pt bladder scanned for 533 ml and pt had no void for approx 8hrs. pt straight cathed for 600cc that was dark yellow and slightly cloudy with a strong odor. pt outer labia was noted to be dark pink in color. pt tolerated procedure well
[2018-05-05 07:56] VITALS: BP 101/56; PULSE 77; RESP 16; TEMP 36.4; O2SAT 90
[2018-05-05] MEDS: buPROPion (XL) 150 MG TABLET.XL PO (07:58)
[2018-05-05] MEDS: Clopidogrel Bisulfate 75 MG Tablet PO (07:58)
[2018-05-05] MEDS: Venlafaxine XR 150 MG Capsule PO (07:58)
[2018-05-05] MEDS: Aspirin 81 MG TAB.CHEW PO (07:58)
--- NOTE | 2018-05-05 12:23 | PCM.PN.NEU ---
Subjective: Patient seen and examined. Was straight cath for 600cc of dark urine last void was 8 hours prior, was started on Flomax 0.4mg yesterday for urine retention. Continue to bladder scan. Patient denies any burning or lower abdominal pain any feelings of fullness or discomfort. - Physical Exam General: Alert, Oriented x3, Cooperative HEENT: Atraumatic, PERRLA, EOMI, Normocephalic Neck: Supple, No JVD, Negative Carotid Bruits Lungs: Clear to auscultation, Normal air movement Cardiovascular: Regular rate, No murmurs Abdomen: Bowel Sounds Present, Soft, Non Tender Extremities: No edema, Capillary Refill Less than 3 Seconds Skin: No rashes, No breakdown Musculoskeletal: No Tenderness to Palpation of Joints or Extremities Neurological: Cranial nerves II-XII grossly intact Psych/Mental Status: Normal Affect, Appropriate, Alert and oriented to time, place, person, mood and affect Vital Signs Temp Pulse Resp BP Pulse Ox 97.5 F L 77 16 101/56 L 90 05/05/18 07:56 05/05/18 07:56 05/05/18 07:56 05/05/18 07:56 05/05/18 07:56 Oxygen Flow Rate (L/min) 3 Oxygen Delivery Method Room Air Weight: 84.8 kg Body Mass Index (BMI) 30.4 Finger Stick Blood Glucose 100 Intake and Output for Last 24 Hours 05/03/18 05/04/18 05/05/18 23:59 23:59 23:59 Intake Total 720 / 720 600 / 600 240 / 240 Output Total 1200 / 1200 600 / 600 Balance 720 / 720 -600 / -600 -360 / -360 Active Medications Acetaminophen (Tylenol) 650 mg PO Q6H PRN PRN PRN Reason: Mild Pain (0-3/10)/Headache Alprazolam (Xanax) 0.25 mg PO QHS [facility] Last Admin: 05/04/18 20:38 Dose: 0.25 mg Aspirin (Aspirin, Baby) 81 mg PO DAILY@0800 [facility] Last Admin: 05/05/18 07:58 Dose: 81 mg Bisacodyl (Dulcolax) 10 mg RECTAL .PRN X 1 PRN PRN Reason: Constipation Bupropion HCl (Wellbutrin Xl) 150 mg PO DAILY [facility] Last Admin: 05/05/18 07:58 Dose: 150 mg Clopidogrel Bisulfate (Plavix) 75 mg PO DAILY [facility] Last Admin: 05/05/18 07:58 Dose: 75 mg Enoxaparin Sodium (Lovenox) 40 mg SC DAILY@0600 [facility] Last Admin: 05/05/18 05:08 Dose: 40 mg Levothyroxine Sodium (Synthroid) 75 mcg PO DAILY@0600 [facility] Last Admin: 05/05/18 05:09 Dose: 75 mcg Magnesium Hydroxide (Milk Of Magnesia) 30 ml PO .PRN X 1 PRN PRN Reason: Constipation Last Admin: 05/03/18 08:41 Dose: 30 ml [facility] Last Admin: 05/05/18 07:58 Dose: 40 meq Senna/Docusate Sodium (Senokot-S, Yessy-Colace) 2 tablet PO BID [facility] Last Admin: 05/05/18 07:53 Dose: Not Given Tamsulosin HCl (Flomax) 0.4 mg PO DAILY@1730 [facility] Last Admin: 05/04/18 13:28 Dose: 0.4 mg Venlafaxine HCl (Effexor Xr) 150 mg PO DAILY [facility] Last Admin: 05/05/18 07:58 Dose: 150 mg Medical Necessity - Tobacco Use Smoking Status: Never smoker Assessment/Plan All Active Problems (Last Reviewed 05/01/18 @ 13:14 by Moises Angelo MD) Slurred speech (Acute) Acute left pontine infarct complicated by history of falls likely due to severe peripheral neuropathy likely idiopathic: Goal of therapy is christianity of prior level of functional independence so that she can return home. She currently lives alone. - Physical therapy for gait and balance - Occupational Therapy for ADLs - Speech therapy for dysarthria - Aspirin and Plavix - Outpatient sleep study - Permissive hypertension until 05/04/18, then maintain BP less than 130/80 - DVT prophylaxis - Bowel protocol - Flomax started for urine retention => straight cath for 600cc of dark urine patient last voided 8 hrs prior
--- NOTE | 2018-05-05 12:28 | PN.NEURO_ITS ---
Subjective: Patient seen and examined. Was straight cath for 600cc of dark urine last void was 8 hours prior, was started on Flomax 0.4mg yesterday for urine retention. Continue to bladder scan. Patient denies any burning or lower abdominal pain any feelings of fullness or discomfort. - Physical Exam General: Alert, Oriented x3, Cooperative HEENT: Atraumatic, PERRLA, EOMI, Normocephalic Neck: Supple, No JVD, Negative Carotid Bruits Lungs: Clear to auscultation, Normal air movement Cardiovascular: Regular rate, No murmurs Abdomen: Bowel Sounds Present, Soft, Non Tender Extremities: No edema, Capillary Refill Less than 3 Seconds Skin: No rashes, No breakdown Musculoskeletal: No Tenderness to Palpation of Joints or Extremities Neurological: Cranial nerves II-XII grossly intact Psych/Mental Status: Normal Affect, Appropriate, Alert and oriented to time, place, person, mood and affect Vital Signs Temp Pulse Resp BP Pulse Ox 97.5 F L 77 16 101/56 L 90 05/05/18 07:56 05/05/18 07:56 05/05/18 07:56 05/05/18 07:56 05/05/18 07:56 Oxygen Flow Rate (L/min) 3 Oxygen Delivery Method Room Air Weight: 84.8 kg Body Mass Index (BMI) 30.4 Finger Stick Blood Glucose 100 Intake and Output for Last 24 Hours 05/03/18 05/04/18 05/05/18 23:59 23:59 23:59 Intake Total 720 / 720 600 / 600 240 / 240 Output Total 1200 / 1200 600 / 600 Balance 720 / 720 -600 / -600 -360 / -360 Active Medications Acetaminophen (Tylenol) 650 mg PO Q6H PRN PRN PRN Reason: Mild Pain (0-3/10)/Headache Alprazolam (Xanax) 0.25 mg PO QHS [facility] Last Admin: 05/04/18 20:38 Dose: 0.25 mg Aspirin (Aspirin, Baby) 81 mg PO DAILY@0800 [facility] Last Admin: 05/05/18 07:58 Dose: 81 mg Bisacodyl (Dulcolax) 10 mg RECTAL .PRN X 1 PRN PRN Reason: Constipation Bupropion HCl (Wellbutrin Xl) 150 mg PO DAILY [facility] Last Admin: 05/05/18 07:58 Dose: 150 mg Clopidogrel Bisulfate (Plavix) 75 mg PO DAILY [facility] Last Admin: 05/05/18 07:58 Dose: 75 mg Enoxaparin Sodium (Lovenox) 40 mg SC DAILY@0600 [facility] Last Admin: 05/05/18 05:08 Dose: 40 mg Levothyroxine Sodium (Synthroid) 75 mcg PO DAILY@0600 [facility] Last Admin: 05/05/18 05:09 Dose: 75 mcg Magnesium Hydroxide (Milk Of Magnesia) 30 ml PO .PRN X 1 PRN PRN Reason: Constipation Last Admin: 05/03/18 08:41 Dose: 30 ml Potassium [facility]) [facility] Last Admin: 05/05/18 07:58 Dose: 40 meq Senna/Docusate Sodium (Senokot-S, Yessy-Colace) 2 tablet PO BID [facility] Last Admin: 05/05/18 07:53 Dose: Not Given Tamsulosin HCl (Flomax) 0.4 mg PO DAILY@1730 [facility] Last Admin: 05/04/18 13:28 Dose: 0.4 mg Venlafaxine HCl (Effexor Xr) 150 mg PO DAILY [facility] Last Admin: 05/05/18 07:58 Dose: 150 mg Medical Necessity - Tobacco Use Smoking Status: Never smoker Assessment/Plan All Active Problems (Last Reviewed 05/01/18 @ 13:14 by Moises Angelo MD) Slurred speech (Acute) Acute left pontine infarct complicated by history of falls likely due to severe peripheral neuropathy likely idiopathic: Goal of therapy is orthodox of prior level of functional independence so that she can return home. She currently lives alone. - Physical therapy for gait and balance - Occupational Therapy for ADLs - Speech therapy for dysarthria - Aspirin and Plavix - Outpatient sleep study - Permissive hypertension until 05/04/18, then maintain BP less than 130/80 - DVT prophylaxis - Bowel protocol - Flomax started for urine retention => straight cath for 600cc of dark urine patient last voided 8 hrs prior
--- NOTE | 2018-05-05 16:17 | PCM.PN.HOSP ---
Subjective: Patient was seen and examined. Had an episode of urine retention, straight cath. She has voided since. Doing well in therapy. Objective: Physical Exam General: Alert, Oriented x3, Cooperative HEENT: Atraumatic, PERRLA, EOMI, Normocephalic Neck: Supple, No JVD, Negative Carotid Bruits Lungs: Clear to auscultation, Normal air movement Cardiovascular: Regular rate, Regular Rhythm, Normal S1, Normal S2, No murmurs Abdomen: Bowel Sounds Present, Soft, Non Tender, Non-Distended Extremities: No clubbing, No cyanosis, No edema, Capillary Refill Less than 3 Seconds Skin: No rashes, No breakdown Musculoskeletal: No Tenderness to Palpation of Joints or Extremities, - - Right lower extremity in splint Neurological: Cranial nerves II-XII grossly intact, - - Dysarthria, mild aphasia Psych/Mental Status: Normal Affect, Appropriate Vitals/I&O's: Vital Signs Temp Pulse Resp BP Pulse Ox 97.5 F L 77 16 101/56 L 90 05/05/18 07:56 05/05/18 07:56 05/05/18 07:56 05/05/18 07:56 05/05/18 07:56 Oxygen Flow Rate (L/min) 3 Oxygen Delivery Method Room Air Weight: 84.8 kg Body Mass Index (BMI) 30.4 Finger Stick Blood Glucose 100 Intake and Output for Last 24 Hours 05/03/18 05/04/18 05/05/18 23:59 23:59 23:59 Intake Total 720 / 720 600 / 600 240 / 240 Output Total 1200 / 1200 600 / 600 Balance 720 / 720 -600 / -600 -360 / -360 Current Medications Acetaminophen (Tylenol) 650 mg PO Q6H PRN PRN PRN Reason: Mild Pain (0-3/10)/Headache Alprazolam (Xanax) 0.25 mg PO QHS [facility] Last Admin: 05/04/18 20:38 Dose: 0.25 mg Aspirin (Aspirin, Baby) 81 mg PO DAILY@0800 [facility] Last Admin: 05/05/18 07:58 Dose: 81 mg Bisacodyl (Dulcolax) 10 mg RECTAL .PRN X 1 PRN PRN Reason: Constipation Bupropion HCl (Wellbutrin Xl) 150 mg PO DAILY [facility] Last Admin: 05/05/18 07:58 Dose: 150 mg Clopidogrel Bisulfate (Plavix) 75 mg PO DAILY [facility] Last Admin: 05/05/18 07:58 Dose: 75 mg Enoxaparin Sodium (Lovenox) 40 mg SC DAILY@0600 [facility] Last Admin: 05/05/18 05:08 Dose: 40 mg Levothyroxine Sodium (Synthroid) 75 mcg PO DAILY@0600 [facility] Last Admin: 05/05/18 05:09 Dose: 75 mcg Magnesium Hydroxide (Milk Of Magnesia) 30 ml PO .PRN X 1 PRN PRN Reason: Constipation Last Admin: 05/03/18 08:41 Dose: 30 ml [facility] Last Admin: 05/05/18 07:58 Dose: 40 meq Senna/Docusate Sodium (Senokot-S, Yessy-Colace) 2 tablet PO BID [facility] Last Admin: 05/05/18 07:53 Dose: Not Given Tamsulosin HCl (Flomax) 0.4 mg PO DAILY@1730 [facility] Last Admin: 05/04/18 13:28 Dose: 0.4 mg Venlafaxine HCl (Effexor Xr) 150 mg PO DAILY [facility] Last Admin: 05/05/18 07:58 Dose: 150 mg Medical Necessity - Tobacco Use Smoking Status: Never smoker Assessment/Plan All Active Problems (Last Reviewed 05/01/18 @ 13:14 by Moises Angelo MD) Slurred speech (Acute) 77 year old F past medical history of hypertension, hyperlipidemia, hypothyroidism, depression/anxiety admitted to inpatient rehab with debility after an acute left pontine infarct. 1. Debility related to Acute left pontine infarct, therapy ongoing, will continue per rehab recommendations. 2. Acute left pontine infarct, history of CVA, on aspirin, Plavix, not on statins because of severe allergies to statins 3. Chronic hyponatremia, remains stable at 130. 4. Hypertension, fairly controlled, not on any medications, will continue to monitor 5. Hyperlipidemia, not on statins due to severe allergy 6. Hypothyroidism, on levothyroxine 7. Depression/anxiety, continue on buproprion and effexor 8. Recurrent falls, recent left ankle fracture, in boots 9. Cognitive impairment, likely vascular dementia, will continue to monitor patient, will encourage non-pharmacologic management, including sleep hygiene etc 10. DVT PPx- Lovenox SC Code Visit Inpatient E&M: 29888 Subs Hosp L2
[2018-05-05 16:44] VITALS: BMI 30.4
--- NOTE | 2018-05-05 17:30 | CASEMGMT ---
Reviewed and approved attached social work student documentation. YENNY TorresW, WELDING SPECIALIST
[2018-05-05] MEDS: Tamsulosin HCl 0.4 MG Capsule PO (17:58)
[2018-05-05 21:10] VITALS: BP 149/94; PULSE 72; RESP 16; TEMP 36.6; O2SAT 93; BMI 30.4
[2018-05-05] MEDS: ALPRAZolam 0.25 MG Tablet PO (21:21)
[2018-05-05] MEDS: Senna/Docusate Sodium 1 Tablet 2 TABLET PO (21:21)
--- NOTE | 2018-05-06 02:34 | NURSING ---
Reviewed and agree with SOFTWARE VALIDATION ENGINEER documentation and FIMs charting.
[2018-05-06] MEDS: Enoxaparin 40 MG/0.4 ML Syringe SC (06:19)
[2018-05-06] MEDS: Levothyroxine 75 MCG Tablet PO (06:19)
[2018-05-06 06:55] VITALS: O2SAT 93
--- NOTE | 2018-05-06 06:59 | NURSING ---
pt up to the 0300 to try and void and pt could not pt returned to bed and bladder scanned at this time was value was 493cc. rn aware. 0630 pt awake and adls started pt reports that she feels the urge to void, pt transferred the bcs with 2 assists. after several minutes pt is unable to go and was returned to bed and bladder scanned at this time. a value of 666cc was noted and pt then was straight cathed for 700cc of dark foul smelling urine that was slightly cloudy. pt tolerated the procedure well. rn aware of straight cath value
[2018-05-06] MEDS: Clopidogrel Bisulfate 75 MG Tablet PO (07:38)
[2018-05-06] MEDS: buPROPion (XL) 150 MG TABLET.XL PO (07:39)
[2018-05-06] MEDS: Venlafaxine XR 150 MG Capsule PO (07:39)
[2018-05-06] MEDS: Aspirin 81 MG TAB.CHEW PO (07:39)
[2018-05-06] MEDS: Senna/Docusate Sodium 1 Tablet 2 TABLET PO ×2 (07:39→21:12)
[2018-05-06 08:00] VITALS: BP 131/80; PULSE 82; RESP 17; TEMP 36.4; O2SAT 95
--- NOTE | 2018-05-06 12:14 | PN.NEURO_ITS ---
Subjective: Patient seen and examined. Tolerating therapy, no new complaints. - Physical Exam General: Alert, Oriented x3, Cooperative HEENT: Atraumatic, PERRLA, EOMI, Normocephalic Neck: Supple, No JVD, Negative Carotid Bruits Lungs: Clear to auscultation, Normal air movement Cardiovascular: Regular rate, No murmurs Abdomen: Bowel Sounds Present, Soft, Non Tender Extremities: No edema, Capillary Refill Less than 3 Seconds Skin: No rashes, No breakdown Musculoskeletal: No Tenderness to Palpation of Joints or Extremities Neurological: Cranial nerves II-XII grossly intact Psych/Mental Status: Normal Affect, Appropriate, Alert and oriented to time, place, person, mood and affect Vital Signs Temp Pulse Resp BP Pulse Ox 97.6 F L 82 17 131/80 H 95 05/06/18 08:00 05/06/18 08:00 05/06/18 08:00 05/06/18 08:00 05/06/18 08:00 Oxygen Flow Rate (L/min) 3 Oxygen Delivery Method Room Air Weight: 83.1 kg Body Mass Index (BMI) 30.4 Finger Stick Blood Glucose 100 Intake and Output for Last 24 Hours 05/04/18 05/05/18 05/06/18 23:59 23:59 23:59 Intake Total 600 / 600 240 / 240 400 / 400 Output Total 1200 / 1200 600 / 600 700 / 700 Balance -600 / -600 -360 / -360 -300 / -300 Active Medications Acetaminophen (Tylenol) 650 mg PO Q6H PRN PRN PRN Reason: Mild Pain (0-3/10)/Headache Alprazolam (Xanax) 0.25 mg PO QHS [facility] Last Admin: 05/05/18 21:21 Dose: 0.25 mg Aspirin (Aspirin, Baby) 81 mg PO DAILY@0800 [facility] Last Admin: 05/06/18 07:39 Dose: 81 mg Bisacodyl (Dulcolax) 10 mg RECTAL .PRN X 1 PRN PRN Reason: Constipation Bupropion HCl (Wellbutrin Xl) 150 mg PO DAILY [facility] Last Admin: 05/06/18 07:39 Dose: 150 mg Clopidogrel Bisulfate (Plavix) 75 mg PO DAILY [facility] Last Admin: 05/06/18 07:38 Dose: 75 mg Enoxaparin Sodium (Lovenox) 40 mg SC DAILY@0600 [facility] Last Admin: 05/06/18 06:19 Dose: 40 mg Levothyroxine Sodium (Synthroid) 75 mcg PO DAILY@0600 [facility] Last Admin: 05/06/18 06:19 Dose: 75 mcg Magnesium Hydroxide (Milk Of Magnesia) 30 ml PO .PRN X 1 PRN PRN Reason: Constipation Last Admin: 05/03/18 08:41 Dose: 30 ml Potassium [facility] ([facility] Last Admin: 05/06/18 07:39 Dose: 40 meq Senna/Docusate Sodium (Senokot-S, Yessy-Colace) 2 tablet PO BID [facility] Last Admin: 05/06/18 07:39 Dose: 2 tablet Tamsulosin HCl (Flomax) 0.4 mg PO DAILY@1730 [facility] Last Admin: 05/05/18 17:58 Dose: 0.4 mg Venlafaxine HCl (Effexor Xr) 150 mg PO DAILY [facility] Last Admin: 05/06/18 07:39 Dose: 150 mg Medical Necessity - Tobacco Use Smoking Status: Never smoker Assessment/Plan All Active Problems (Last Reviewed 05/01/18 @ 13:14 by Moises Angelo MD) Slurred speech (Acute) Acute left pontine infarct complicated by history of falls likely due to severe peripheral neuropathy likely idiopathic: Goal of therapy is judaism of prior level of functional independence so that she can return home. She currently lives alone. - Physical therapy for gait and balance - Occupational Therapy for ADLs - Speech therapy for dysarthria - Aspirin and Plavix - Outpatient sleep study - Permissive hypertension until 05/04/18, then maintain BP less than 130/80 - DVT prophylaxis - Bowel protocol - Flomax started for urine retention => straight cath for 600cc of dark urine patient last voided 8 hrs prior = urine has foul smell will obtain a urinalysis and culture
[2018-05-06 13:51] VITALS: BMI 30.4
--- NOTE | 2018-05-06 16:27 | CHAPLAIN ---
Type of Pastoral Visit _x__ Initial Visit ___ Follow-up Visit ___ On-call Visit ___ General Patient Visit ___ Spiritual Assessment ___ Family Conference ___ Bereavement ___ Rapid Response ___ Code Blue ___ Other (describe below) Pastoral Care Referral From _x__ Patient ___ Family ___ Nurse ___ Physician ___ Second Baker ___ Part Time Flexible Clerk ___ Other (describe below) Sacrament/Intervention _x__ Active listening ___ Anointing ___ Confucianism ___ Bereavement ___ Communion _x__ Therese exploration ___ ___ Life review _x__ Prayer ___ Reconciliation ___ Sacrament of Sick _x__ Supportive presence ___ Wedding ___ Other (describe below) Pastoral Comments patient is talkative; pt is concerned about her and his health; pt says her is now enrolled with hospice for care and that he wants her to be home with him; pt has a personal therese and oriental orthodox connection which she says she turns to in need; pt has family support as well
[2018-05-06] MEDS: Tamsulosin HCl 0.4 MG Capsule PO (17:20)
[2018-05-06] MEDS: Magnesium Hydroxide 30 ML UDC PO (18:04)
[2018-05-06 21:00] VITALS: BP 130/78; PULSE 80; RESP 19; TEMP 36.5; O2SAT 93; BMI 30.4
[2018-05-06] MEDS: ALPRAZolam 0.25 MG Tablet PO (21:12)
[2018-05-06] MEDS: Acetaminophen 325 MG Tablet 650 MG PO (21:25)
--- NOTE | 2018-05-07 03:08 | NURSING ---
REVIEWED AND AGREE WITH SUPPLY AIDE'S FIM AND HANDOFF CHARTING.
[2018-05-07] MEDS: Levothyroxine 75 MCG Tablet PO (04:05)
[2018-05-07] MEDS: Bisacodyl 10 MG Suppository RECTAL (04:05)
[2018-05-07] MEDS: Enoxaparin 40 MG/0.4 ML Syringe SC (04:05)
[2018-05-07 04:08] LABS: Mucous, Urine 0 SEEN /hpf (<or=2+); Red Blood Cells-Urine 0 SEEN /hpf (0-5)
--- NOTE | 2018-05-07 04:18 | NURSING ---
0345 pt rechecked for urinary retention and bladder scanned for 497cc and pt was then straight cathed for 570 cc. urine obtained for ua with C&S as per order . pt tolerated procedure well. pt also given dulcolax suppository for constipation, hard formed stool noted in rectal vault when suppository was inserted. pt denied any discomfort when asked 0400 urine sent to the lab per rn .
[2018-05-07 04:49] LABS: Color, Urine Yellow (Yellow); Glucose, Dipstick Normal (Normal); Ketone-Dipstick Negative (Negative); Leukocyte Esterase-Dipstick 100 /ul (Negative); Nitrite-Dipstick Positive (Negative); Occult Blood-Urine Negative /ul (Negative); Protein-Dipstick Negative (Negative); Urine Bilirubin Dipstick Negative (Negative); Urine Clarity Cloudy (Clear); Urine Urobilinogen Normal (Normal)
[2018-05-07 05:03] LABS: Bacteria 3+ /hpf (None Seen); Squamous Epithelial Cells - UA 0-5 SEEN /hpf (5-10); White Blood Cells 5-10 SEEN /hpf (0-5)
[2018-05-07 06:30] VITALS: O2SAT 93
[2018-05-07] MEDS: Venlafaxine XR 150 MG Capsule PO (08:11)
[2018-05-07] MEDS: buPROPion (XL) 150 MG TABLET.XL PO (08:11)
[2018-05-07] MEDS: Aspirin 81 MG TAB.CHEW PO (08:11)
[2018-05-07] MEDS: Clopidogrel Bisulfate 75 MG Tablet PO (08:11)
[2018-05-07 08:20] VITALS: BP 154/76; PULSE 79; RESP 12; TEMP 36.5; O2SAT 93
[2018-05-07] MEDS: Acetaminophen 325 MG Tablet 650 MG PO (09:11)
[2018-05-07 10:18] LABS: Anion Gap 7 (5-15); BUN 10 mg/dL (7-18); BUN/Creat Ratio 12.9 RATIO (10-20); Calcium,Total 8.5 mg/dL (8.5-10.1); Chloride 94 mmol/L (98-107); Creatinine, Serum 0.78 mg/dL (0.55-1.02); EST Glomerular Filtration Rate 76 mL/min (>60); Est Glom Filt Rate - Afr Amer 92 mL/min (>60); Glucose 89 mg/dL (74-106); Potassium 4.6 mmol/L (3.5-5.1); Sodium Level 130 mmol/L (136-145)
--- NOTE | 2018-05-07 10:46 | PCM.PN.NEU ---
Subjective: Staffed in team meeting. Family at bedside, questions answered. With Physical therapy, her transfers are difficult because of ataxia movements. She does better with a sliding board and only requires minimal assistance. she is not walking at all because of difficulty maintaining her balance and not being able to put weight on that LLE. With Occupational therapy, she is max assist with two persons for bathing, getting in and out of the shower. With personal bathing she requires constant cues to wash on her left side. She is total assist for lower body and moderate assist for upper body. With toileting she is two person assist. With Speech therapy she had a swallow evaluation on 05/04 and she is having silent aspirations, she was advanced to pudding thicken liquids, and a pureed diet. They will continue to work on her cognitive issues and her swallowing. With Nursing, per orth she may take her boot off while sitting in the chair during the day, but will need to have the boot on at night in the bed. Will re-team her again next May 14. - Physical Exam General: Alert, Oriented x3, Cooperative HEENT: Atraumatic, PERRLA, EOMI, Normocephalic Neck: Supple, No JVD, Negative Carotid Bruits Lungs: Clear to auscultation, Normal air movement Cardiovascular: Regular rate, No murmurs Abdomen: Bowel Sounds Present, Soft, Non Tender Extremities: No edema, Capillary Refill Less than 3 Seconds Skin: No rashes, No breakdown Musculoskeletal: No Tenderness to Palpation of Joints or Extremities Neurological: Cranial nerves II-XII grossly intact Psych/Mental Status: Normal Affect, Appropriate, Alert and oriented to time, place, person, mood and affect Vital Signs Temp Pulse Resp BP Pulse Ox 97.7 F L 79 12 154/76 H 93 05/07/18 08:20 05/07/18 08:20 05/07/18 08:20 05/07/18 08:20 05/07/18 08:20 Oxygen Flow Rate (L/min) 3 Oxygen Delivery Method Room Air Weight: 83.1 kg Body Mass Index (BMI) 30.4 Finger Stick Blood Glucose 100 Intake and Output for Last 24 Hours 05/05/18 05/06/18 05/07/18 23:59 23:59 23:59 Intake Total 240 / 240 1320 / 1320 120 / 120 Output Total 600 / 600 700 / 700 570 / 570 Balance -360 / -360 620 / 620 -450 / -450 Laboratory Tests Past 24 Hrs 05/07/18 05/07/18 04:00 09:45 Sodium 130 L Potassium 4.6 Chloride 94 L Carbon Dioxide 29.0 Anion Gap 7 BUN 10 Creatinine 0.78 Estim Creat Clear Calc 44.10 Est GFR (MDRD) Af Amer 92 Est GFR (MDRD) Non-Af 76 BUN/Creatinine Ratio 12.9 Glucose 89 Calcium 8.5 Urine Color Yellow Urine Clarity Cloudy Urine pH 6.0 Ur Specific [place] 1.020 Urine Protein Negative Urine Glucose (UA) Normal Urine Ketones Negative Urine Occult Blood Negative Urine Nitrite Positive H Urine Bilirubin Negative Urine Urobilinogen Normal Ur Leukocyte Esterase 100 H Urine RBC 0 SEEN Urine WBC 5-10 SEEN Ur Squamous Epith Cells 0-5 SEEN Urine Bacteria 3+ Urine Mucus 0 SEEN Active Medications Acetaminophen (Tylenol) 650 mg PO Q6H PRN PRN PRN Reason: Mild Pain (0-3/10)/Headache Last Admin: 05/07/18 09:11 Dose: 650 mg Alprazolam (Xanax) 0.25 mg PO QHS [facility] Last Admin: 05/06/18 21:12 Dose: 0.25 mg Aspirin (Aspirin, Baby) 81 mg PO DAILY@0800 [facility] Last Admin: 05/07/18 08:11 Dose: 81 mg Bisacodyl (Dulcolax) 10 mg RECTAL .PRN X 1 PRN PRN Reason: Constipation Last Admin: 05/07/18 04:05 Dose: 10 mg Bupropion HCl (Wellbutrin Xl) 150 mg PO DAILY [facility] Last Admin: 05/07/18 08:11 Dose: 150 mg Calcium Carbonate (Os-Tr 500) 500 mg PO DAILY@0800 [facility] Cholecalciferol (Vitamin D) 2,000 unit PO DAILY [facility] Clopidogrel Bisulfate (Plavix) 75 mg PO DAILY [facility] Last Admin: 05/07/18 08:11 Dose: 75 mg Enoxaparin Sodium (Lovenox) 40 mg SC DAILY@0600 [facility] Last Admin: 05/07/18 04:05 Dose: 40 mg Levothyroxine Sodium (Synthroid) 75 mcg PO DAILY@0600 [facility] Last Admin: 05/07/18 04:05 Dose: 75 mcg Magnesium Hydroxide (Milk Of Magnesia) 30 ml PO .PRN X 1 PRN PRN Reason: Constipation Last Admin: 05/06/18 18:04 Dose: 30 ml Nitrofurantoin Macrocrystals (Macrobid) 100 mg PO BID [facility] Stop: 05/12/18 10:23 Potassium Chloride (K-Dur) 40 meq PO BIDCM [facility] Last Admin: 05/07/18 08:11 Dose: 40 meq Senna/Docusate Sodium (Senokot-S, Yessy-Colace) 2 tablet PO BID [facility] Last Admin: 05/07/18 08:18 Dose: Not Given Tamsulosin HCl (Flomax) 0.4 mg PO DAILY@1730 [facility] Last Admin: 05/06/18 17:20 Dose: 0.4 mg Venlafaxine HCl (Effexor Xr) 150 mg PO DAILY [facility] Last Admin: 05/07/18 08:11 Dose: 150 mg Medical Necessity - Tobacco Use Smoking Status: Never smoker Assessment/Plan All Active Problems (Last Reviewed 05/01/18 @ 13:14 by Moises Angelo MD) Slurred speech (Acute) Debility s/p Acute left pontine infarct complicated by history of falls likely due to severe peripheral neuropathy likely idiopathic: Goal of therapy is hinduism of prior level of functional independence so that she can return home. Plan: - Physical therapy for gait and balance - Occupational Therapy for ADLs - Speech therapy for dysarthria - Aspirin and Plavix - Outpatient sleep study - Permissive hypertension until 05/04/18, then maintain BP less than 130/80 - DVT prophylaxis - Bowel protocol - Flomax started for urine retention => straight cath for 600cc of dark urine patient last voided 8 hrs prior = urine has foul smell will obtain a urinalysis and culture - Acute Cystis = start on Macrobid 100mg BID given allergies to Cipro and sulf - Start Vitamin D 2,000 units daily, and and Calcium 500mg daily to provide bone healing.
--- NOTE | 2018-05-07 10:51 | PN.NEURO_ITS ---
Subjective: Staffed in team meeting. Family at bedside, questions answered. With Physical therapy, her transfers are difficult because of ataxia movements. She does better with a sliding board and only requires minimal assistance. she is not walking at all because of difficulty maintaining her balance and not being able to put weight on that LLE. With Occupational therapy, she is max assist with two persons for bathing, getting in and out of the shower. With personal bathing she requires constant cues to wash on her left side. She is total assist for lower body and moderate assist for upper body. With toileting she is two person assist. With Speech therapy she had a swallow evaluation on 05/04 and she is having silent aspirations, she was advanced to pudding thicken liquids, and a pureed diet. They will continue to work on her cognitive issues and her swallowing. With Nursing, per orth she may take her boot off while sitting in the chair during the day, but will need to have the boot on at night in the bed. Will re-team her again next May 14. - Physical Exam General: Alert, Oriented x3, Cooperative HEENT: Atraumatic, PERRLA, EOMI, Normocephalic Neck: Supple, No JVD, Negative Carotid Bruits Lungs: Clear to auscultation, Normal air movement Cardiovascular: Regular rate, No murmurs Abdomen: Bowel Sounds Present, Soft, Non Tender Extremities: No edema, Capillary Refill Less than 3 Seconds Skin: No rashes, No breakdown Musculoskeletal: No Tenderness to Palpation of Joints or Extremities Neurological: Cranial nerves II-XII grossly intact Psych/Mental Status: Normal Affect, Appropriate, Alert and oriented to time, place, person, mood and affect Vital Signs Temp Pulse Resp BP Pulse Ox 97.7 F L 79 12 154/76 H 93 05/07/18 08:20 05/07/18 08:20 05/07/18 08:20 05/07/18 08:20 05/07/18 08:20 Oxygen Flow Rate (L/min) 3 Oxygen Delivery Method Room Air Weight: 83.1 kg Body Mass Index (BMI) 30.4 Finger Stick Blood Glucose 100 Intake and Output for Last 24 Hours 05/05/18 05/06/18 05/07/18 23:59 23:59 23:59 Intake Total 240 / 240 1320 / 1320 120 / 120 Output Total 600 / 600 700 / 700 570 / 570 Balance -360 / -360 620 / 620 -450 / -450 Laboratory Tests Past 24 Hrs 05/07/18 05/07/18 04:00 09:45 Sodium 130 L Potassium 4.6 Chloride 94 L Carbon Dioxide 29.0 Anion Gap 7 BUN 10 Creatinine 0.78 Estim Creat Clear Calc 44.10 Est GFR (MDRD) Af Amer 92 Est GFR (MDRD) Non-Af 76 BUN/Creatinine Ratio 12.9 Glucose 89 Calcium 8.5 Urine Color Yellow Urine Clarity Cloudy Urine pH 6.0 Ur Specific [place] 1.020 Urine Protein Negative Urine Glucose (UA) Normal Urine Ketones Negative Urine Occult Blood Negative Urine Nitrite Positive H Urine Bilirubin Negative Urine Urobilinogen Normal Ur Leukocyte Esterase 100 H Urine RBC 0 SEEN Urine WBC 5-10 SEEN Ur Squamous Epith Cells 0-5 SEEN Urine Bacteria 3+ Urine Mucus 0 SEEN Active Medications Acetaminophen (Tylenol) 650 mg PO Q6H PRN PRN PRN Reason: Mild Pain (0-3/10)/Headache Last Admin: 05/07/18 09:11 Dose: 650 mg Alprazolam (Xanax) 0.25 mg PO QHS [facility] Last Admin: 05/06/18 21:12 Dose: 0.25 mg Aspirin (Aspirin, Baby) 81 mg PO DAILY@0800 [facility] Last Admin: 05/07/18 08:11 Dose: 81 mg Bisacodyl (Dulcolax) 10 mg RECTAL .PRN X 1 PRN PRN Reason: Constipation Last Admin: 05/07/18 04:05 Dose: 10 mg Bupropion HCl (Wellbutrin Xl) 150 mg PO DAILY [facility] Last Admin: 05/07/18 08:11 Dose: 150 mg Calcium Carbonate (Os-Tr 500) 500 mg PO DAILY@0800 [facility] Cholecalciferol (Vitamin D) 2,000 unit PO DAILY [facility] Clopidogrel Bisulfate (Plavix) 75 mg PO DAILY [facility] Last Admin: 05/07/18 08:11 Dose: 75 mg Enoxaparin Sodium (Lovenox) 40 mg SC DAILY@0600 [facility] Last Admin: 05/07/18 04:05 Dose: 40 mg Levothyroxine Sodium (Synthroid) 75 mcg PO DAILY@0600 [facility] Last Admin: 05/07/18 04:05 Dose: 75 mcg Magnesium Hydroxide (Milk Of Magnesia) 30 ml PO .PRN X 1 PRN PRN Reason: Constipation Last Admin: 05/06/18 18:04 Dose: 30 ml Nitrofurantoin Macrocrystals (Macrobid) 100 mg PO BID [facility] Stop: 05/12/18 10:23 Potassium Chloride (K-Dur) 40 meq PO BIDCM [facility] Last Admin: 05/07/18 08:11 Dose: 40 meq Senna/Docusate Sodium (Senokot-S, Yessy-Colace) 2 tablet PO BID [facility] Last Admin: 05/07/18 08:18 Dose: Not Given Tamsulosin HCl (Flomax) 0.4 mg PO DAILY@1730 [facility] Last Admin: 05/06/18 17:20 Dose: 0.4 mg Venlafaxine HCl (Effexor Xr) 150 mg PO DAILY [facility] Last Admin: 05/07/18 08:11 Dose: 150 mg Medical Necessity - Tobacco Use Smoking Status: Never smoker Assessment/Plan All Active Problems (Last Reviewed 05/01/18 @ 13:14 by Moises Angelo MD) Slurred speech (Acute) Debility s/p Acute left pontine infarct complicated by history of falls likely due to severe peripheral neuropathy likely idiopathic: Goal of therapy is yarsanism of prior level of functional independence so that she can return home. Plan: - Physical therapy for gait and balance - Occupational Therapy for ADLs - Speech therapy for dysarthria - Aspirin and Plavix - Outpatient sleep study - Permissive hypertension until 05/04/18, then maintain BP less than 130/80 - DVT prophylaxis - Bowel protocol - Flomax started for urine retention => straight cath for 600cc of dark urine patient last voided 8 hrs prior = urine has foul smell will obtain a urinalysis and culture - Acute Cystis = start on Macrobid 100mg BID given allergies to Cipro and sulf - Start Vitamin D 2,000 units daily, and and Calcium 500mg daily to provide bone healing.
--- NOTE | 2018-05-07 11:00 | RAD_ITS ---
STUDY: X-RAY - LEFT ANKLE REASON FOR EXAM: Female, 77 years old. History of a healing fracture. TECHNIQUE: 3 view(s) of the ankle. COMPARISON: Comparison is made with prior examination dated April 08, 2018. FINDINGS: Is evidence of a healing fracture of the lateral malleolus. The alignment is maintained. Normal medial and lateral malleoli. Normal tibiotalar articulation and ankle mortise. Small plantar spur. The visualized subtalar, talonavicular, calcaneocuboid and tarsal articulations are normal. Mild degree of residual soft tissue swelling. RAD/Ankle min 3 Views IMPRESSION: Healing nondisplaced fracture of the lateral malleolus. Electronically Signed: Panfilo Gonsalves MD at 14:27 EDT Tel [phone], Service support ,
--- NOTE | 2018-05-07 11:34 | NURSING ---
XRAY COMPLETED TO LEFT ANKLE PER ORDERS.
--- NOTE | 2018-05-07 11:38 | CASEMGMT ---
Team meeting held. Patient present as well as patient daughter. No discharge date set at this time. Patient to continue with further care and treatment on the Inpatient Rehab Unit. Patient approved 23 Medicare days with a discharge on or by 05/24/18. Patient plans to discharge to home with spouse vs. skilled facility pending patient level of functioning. Patient to be re-teamed next week. Patient spouse unable to provide any assistance for patient. Support given. Will continue to follow. NADIYA Torres, COMPLAINT EVALUATION OFFICER
[2018-05-07] MEDS: Nitrofurantoin Macrocrystals 100 MG Capsule PO ×2 (12:54→16:42)
[2018-05-07] MEDS: Calcium (Elemental) 500 MG Tablet PO (12:54)
--- NOTE | 2018-05-07 13:11 | PCM.PN.HOSP ---
Subjective: Patient was seen and examined. She denies any complains. Therapy is going well for her. She thinks she exercised more today than usual. Denies chest pain, dizziness or SOB. Objective: Physical Exam General: Alert, Oriented x3, Cooperative HEENT: Atraumatic, PERRLA, EOMI, Normocephalic Neck: Supple, No JVD, Negative Carotid Bruits Lungs: Clear to auscultation, Normal air movement Cardiovascular: Regular rate, Regular Rhythm, Normal S1, Normal S2, No murmurs Abdomen: Bowel Sounds Present, Soft, Non Tender, Non-Distended Extremities: No clubbing, No cyanosis, No edema, Capillary Refill Less than 3 Seconds Skin: No rashes, No breakdown Musculoskeletal: No Tenderness to Palpation of Joints or Extremities, - - Right lower extremity in boots Neurological: Cranial nerves II-XII grossly intact, - - Dysarthria, mild aphasia Psych/Mental Status: Normal Affect, Appropriate Vitals/I&O's: Vital Signs Temp Pulse Resp BP Pulse Ox 97.7 F L 79 12 154/76 H 93 05/07/18 08:20 05/07/18 08:20 05/07/18 08:20 05/07/18 08:20 05/07/18 08:20 Oxygen Flow Rate (L/min) 3 Oxygen Delivery Method Room Air Weight: 83.1 kg Body Mass Index (BMI) 30.4 Finger Stick Blood Glucose 100 Intake and Output for Last 24 Hours 05/05/18 05/06/18 05/07/18 23:59 23:59 23:59 Intake Total 240 / 240 1320 / 1320 120 / 120 Output Total 600 / 600 700 / 700 570 / 570 Balance -360 / -360 620 / 620 -450 / -450 Laboratory Results 05/07/18 04:00: Urine Color Yellow, Urine Clarity Cloudy, Urine pH 6.0, Ur Specific [place] 1.020, Urine Protein Negative, Urine Glucose (UA) Normal, Urine Ketones Negative, Urine Occult Blood Negative, Urine Nitrite Positive H, Urine Bilirubin Negative, Urine Urobilinogen Normal, Ur Leukocyte Esterase 100 H, Urine RBC 0 SEEN, Urine WBC 5-10 SEEN, Ur Squamous Epith Cells 0-5 SEEN, Urine Bacteria 3+, Urine Mucus 0 SEEN 05/07/18 09:45: Sodium 130 L, Potassium 4.6, Chloride 94 L, Carbon Dioxide 29.0, Anion Gap 7, BUN 10, Creatinine 0.78, Estim Creat Clear Calc 44.10, Est GFR (MDRD) Af Amer 92, Est GFR (MDRD) Non-Af 76, BUN/Creatinine Ratio 12.9, Glucose 89, Calcium 8.5 Current Medications Acetaminophen (Tylenol) 650 mg PO Q6H PRN PRN PRN Reason: Mild Pain (0-3/10)/Headache Last Admin: 05/07/18 09:11 Dose: 650 mg Alprazolam (Xanax) 0.25 mg PO QHS [facility] Last Admin: 05/06/18 21:12 Dose: 0.25 mg Aspirin (Aspirin, Baby) 81 mg PO DAILY@0800 [facility] Last Admin: 05/07/18 08:11 Dose: 81 mg Bisacodyl (Dulcolax) 10 mg RECTAL .PRN X 1 PRN PRN Reason: Constipation Last Admin: 05/07/18 04:05 Dose: 10 mg Bupropion HCl (Wellbutrin Xl) 150 mg PO DAILY [facility] Last Admin: 05/07/18 08:11 Dose: 150 mg Calcium Carbonate (Os-Tr 500) 500 mg PO DAILY@0800 [facility] Last Admin: 05/07/18 12:54 Dose: 500 mg Cholecalciferol (Vitamin D) 2,000 unit PO DAILY [facility] Last Admin: 05/07/18 12:55 Dose: 2,000 unit Clopidogrel Bisulfate (Plavix) 75 mg PO DAILY [facility] Last Admin: 05/07/18 08:11 Dose: 75 mg Enoxaparin Sodium (Lovenox) 40 mg SC DAILY@0600 [facility] Last Admin: 05/07/18 04:05 Dose: 40 mg Levothyroxine Sodium (Synthroid) 75 mcg PO DAILY@0600 [facility] Last Admin: 05/07/18 04:05 Dose: 75 mcg Magnesium Hydroxide (Milk Of Magnesia) 30 ml PO .PRN X 1 PRN PRN Reason: Constipation Last Admin: 05/06/18 18:04 Dose: 30 ml [facility] Stop: 05/11/18 17:01 Last Admin: 05/07/18 12:54 Dose: 100 mg Potassium [facility]loride ([facility]) [facility] Last Admin: 05/07/18 08:11 Dose: 40 meq Senna/Docusate Sodium (Senokot-S, Yessy-Colace) 2 tablet PO BID [facility] Last Admin: 05/07/18 08:18 Dose: Not Given Tamsulosin HCl (Flomax) 0.4 mg PO DAILY@1730 [facility] Last Admin: 05/06/18 17:20 Dose: 0.4 mg Venlafaxine HCl (Effexor Xr) 150 mg PO DAILY [facility] Last Admin: 05/07/18 08:11 Dose: 150 mg Medical Necessity - Tobacco Use Smoking Status: Never smoker Assessment/Plan All Active Problems (Last Reviewed 05/01/18 @ 13:14 by Moises Angelo MD) Slurred speech (Acute) 77 year old F past medical history of hypertension, hyperlipidemia, hypothyroidism, depression/anxiety admitted to inpatient rehab with debility after an acute left pontine infarct. 1. Debility related to Acute left pontine infarct, therapy ongoing, will continue per rehab recommendations. 2. Acute left pontine infarct, history of CVA, on aspirin, Plavix, not on statins because of severe allergies to statins 3. Chronic hyponatremia, remains stable at 130. 4. Hypertension, fairly controlled, not on any medications, will continue to monitor 5. Hyperlipidemia, not on statins due to severe allergy 6. Hypothyroidism, on levothyroxine 7. Depression/anxiety, continue on buproprion and effexor 8. Recurrent falls, recent left ankle fracture, in boots 9. Cognitive impairment, likely vascular dementia, will continue to monitor patient, will encourage non-pharmacologic management, including sleep hygiene etc 10. DVT PPx- Lovenox SC Code Visit Inpatient E&M: 34983 Subs Hosp L2
[2018-05-07] MEDS: Tamsulosin HCl 0.4 MG Capsule PO (16:42)
[2018-05-07 17:00] VITALS: BMI 30.4
[2018-05-07] MEDS: ALPRAZolam 0.25 MG Tablet PO (21:01)
[2018-05-07] MEDS: Senna/Docusate Sodium 1 Tablet 2 TABLET PO (21:01)
[2018-05-07 21:09] VITALS: BP 156/87; PULSE 79; RESP 18; TEMP 36.4; O2SAT 92
[2018-05-07 22:00] VITALS: BMI 30.4
--- NOTE | 2018-05-07 22:47 | NURSING ---
Reviewed and agree with LPNs fims and handoff
[2018-05-08] MEDS: Levothyroxine 75 MCG Tablet PO (06:11)
[2018-05-08] MEDS: Enoxaparin 40 MG/0.4 ML Syringe SC (06:11)
[2018-05-08 07:45] VITALS: BP 141/84; PULSE 74; RESP 18; TEMP 36.8; O2SAT 94
[2018-05-08] MEDS: Aspirin 81 MG TAB.CHEW PO (08:01)
[2018-05-08] MEDS: Calcium (Elemental) 500 MG Tablet PO (08:01)
[2018-05-08] MEDS: Nitrofurantoin Macrocrystals 100 MG Capsule PO ×2 (08:01→17:30)
[2018-05-08] MEDS: Venlafaxine XR 150 MG Capsule PO (08:01)
[2018-05-08] MEDS: Clopidogrel Bisulfate 75 MG Tablet PO (08:02)
[2018-05-08] MEDS: buPROPion (XL) 150 MG TABLET.XL PO (08:02)
[2018-05-08] MEDS: Senna/Docusate Sodium 1 Tablet 2 TABLET PO ×2 (08:02→20:38)
--- NOTE | 2018-05-08 12:09 | PN.NEURO_ITS ---
Subjective: Patient seen during therapy session. No new complaints. Tolerating therapy. - Physical Exam General: Alert, Oriented x3, Cooperative HEENT: Atraumatic, PERRLA, EOMI, Normocephalic Neck: Supple, No JVD, Negative Carotid Bruits Lungs: Clear to auscultation, Normal air movement Cardiovascular: Regular rate, No murmurs Abdomen: Bowel Sounds Present, Soft, Non Tender Extremities: No edema, Capillary Refill Less than 3 Seconds Skin: No rashes, No breakdown Musculoskeletal: No Tenderness to Palpation of Joints or Extremities Neurological: Cranial nerves II-XII grossly intact Psych/Mental Status: Normal Affect, Appropriate, Alert and oriented to time, place, person, mood and affect Vital Signs Temp Pulse Resp BP Pulse Ox 98.2 F 74 18 141/84 H 94 05/08/18 07:45 05/08/18 07:45 05/08/18 07:45 05/08/18 07:45 05/08/18 07:45 Oxygen Flow Rate (L/min) 3 Oxygen Delivery Method Room Air Weight: 83.1 kg Body Mass Index (BMI) 30.4 Finger Stick Blood Glucose 100 Intake and Output for Last 24 Hours 05/06/18 05/07/18 05/08/18 23:59 23:59 23:59 Intake Total 1320 / 1320 240 / 240 120 / 120 Output Total 700 / 700 570 / 570 600 / 600 Balance 620 / 620 -330 / -330 -480 / -480 Microbiology Past 72 Hours 05/07/18 04:00 Urine Culture - Preliminary Urine Catheter - Catheter 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 Alpha hemolytic organism Active Medications Acetaminophen (Tylenol) 650 mg PO Q6H PRN PRN PRN Reason: Mild Pain (0-3/10)/Headache Last Admin: 05/07/18 09:11 Dose: 650 mg Alprazolam (Xanax) 0.25 mg PO QHS [facility] Last Admin: 05/07/18 21:01 Dose: 0.25 mg Aspirin (Aspirin, Baby) 81 mg PO DAILY@0800 [facility] Last Admin: 05/08/18 08:01 Dose: 81 mg Bisacodyl (Dulcolax) 10 mg RECTAL .PRN X 1 PRN PRN Reason: Constipation Last Admin: 05/07/18 04:05 Dose: 10 mg Bupropion HCl (Wellbutrin Xl) 150 mg PO DAILY [facility] Last Admin: 05/08/18 08:02 Dose: 150 mg Calcium Carbonate (Os-Tr 500) 500 mg PO DAILY@0800 [facility] Last Admin: 05/08/18 08:01 Dose: 500 mg Cholecalciferol (Vitamin D) 2,000 unit PO DAILY [facility] Last Admin: 05/08/18 08:02 Dose: 2,000 unit Clopidogrel Bisulfate (Plavix) 75 mg PO DAILY [facility] Last Admin: 05/08/18 08:02 Dose: 75 mg Enoxaparin Sodium (Lovenox) 40 mg SC DAILY@0600 [facility] Last Admin: 05/08/18 06:11 Dose: 40 mg Levothyroxine Sodium (Synthroid) 75 mcg PO DAILY@0600 [facility] Last Admin: 05/08/18 06:11 Dose: 75 mcg Magnesium Hydroxide (Milk Of Magnesia) 30 ml PO .PRN X 1 PRN PRN Reason: Constipation Last Admin: 05/06/18 18:04 Dose: 30 ml Nitrofurantoin Macrocrystals (Macrobid) 100 mg PO BIDCM [facility] Stop: 05/11/18 17:01 Last Admin: 05/08/18 08:01 Dose: 100 mg Potassium Chloride (K-Dur) 40 meq PO BIDCM [facility] Last Admin: 05/08/18 08:01 Dose: 40 meq Senna/Docusate Sodium (Senokot-S, Yessy-Colace) 2 tablet PO BID [facility] Last Admin: 05/08/18 08:02 Dose: 2 tablet Tamsulosin HCl (Flomax) 0.4 mg PO DAILY@1730 [facility] Last Admin: 05/07/18 16:42 Dose: 0.4 mg Venlafaxine HCl (Effexor Xr) 150 mg PO DAILY [facility] Last Admin: 05/08/18 08:01 Dose: 150 mg Medical Necessity - Tobacco Use Smoking Status: Never smoker Assessment/Plan All Active Problems (Last Reviewed 05/01/18 @ 13:14 by Moises Angelo MD) Slurred speech (Acute) Debility s/p Acute left pontine infarct complicated by history of falls likely due to severe peripheral neuropathy likely idiopathic: Goal of therapy is islam of prior level of functional independence so that she can return home. Plan: - Physical therapy for gait and balance - Occupational Therapy for ADLs - Speech therapy for dysarthria - Aspirin and Plavix - Outpatient sleep study - Permissive hypertension until 05/04/18, then maintain BP less than 130/80 - DVT prophylaxis - Bowel protocol - Flomax started for urine retention => straight cath for 600cc of dark urine patient last voided 8 hrs prior = urine has foul smell will obtain a urinalysis and culture - Acute Cystis = start on Macrobid 100mg BID given allergies to Cipro and sulf - Start Vitamin D 2,000 units daily, and and Calcium 500mg daily to provide bone healing. - Cognitive impairment, likely vascular dementia, will continue non- pharmacologic management, to including sleep hygiene
[2018-05-08 17:00] VITALS: BMI 30.4
[2018-05-08] MEDS: Tamsulosin HCl 0.4 MG Capsule PO (17:30)
[2018-05-08] MEDS: Acetaminophen 325 MG Tablet 650 MG PO (17:30)
[2018-05-08] MEDS: ALPRAZolam 0.25 MG Tablet PO (20:38)
[2018-05-08 20:45] VITALS: BP 136/74; PULSE 77; RESP 18; TEMP 36.9; O2SAT 92
[2018-05-08 23:34] VITALS: BMI 30.4
[2018-05-09] MEDS: Enoxaparin 40 MG/0.4 ML Syringe SC (05:12)
[2018-05-09] MEDS: Levothyroxine 75 MCG Tablet PO (05:12)
--- NOTE | 2018-05-09 05:21 | NURSING ---
REviewed and agree with LPNs fims and handoff
[2018-05-09 07:35] VITALS: BP 137/80; PULSE 68; RESP 18; TEMP 36.8; O2SAT 94
[2018-05-09] MEDS: Senna/Docusate Sodium 1 Tablet 2 TABLET PO ×2 (08:52→22:25)
[2018-05-09] MEDS: Venlafaxine XR 150 MG Capsule PO (08:52)
[2018-05-09] MEDS: Clopidogrel Bisulfate 75 MG Tablet PO (08:52)
[2018-05-09] MEDS: buPROPion (XL) 150 MG TABLET.XL PO (08:52)
[2018-05-09] MEDS: Nitrofurantoin Macrocrystals 100 MG Capsule PO ×2 (08:52→17:36)
[2018-05-09] MEDS: Aspirin 81 MG TAB.CHEW PO (08:52)
[2018-05-09] MEDS: Calcium (Elemental) 500 MG Tablet PO (08:52)
--- NOTE | 2018-05-09 13:32 | PCM.PN.HOSP ---
Subjective: Patient seen and examined. Denies any complains. Denies chest pain, dizziness, palpitations. Objective: Physical Exam General: Alert, Oriented x3, Cooperative HEENT: Atraumatic, PERRLA, EOMI, Normocephalic Neck: Supple, No JVD, Negative Carotid Bruits Lungs: Clear to auscultation, Normal air movement Cardiovascular: Regular rate, Regular Rhythm, Normal S1, Normal S2, No murmurs Abdomen: Bowel Sounds Present, Soft, Non Tender, Non-Distended Extremities: No clubbing, No cyanosis, No edema, Capillary Refill Less than 3 Seconds Skin: No rashes, No breakdown Musculoskeletal: No Tenderness to Palpation of Joints or Extremities, - - Right lower extremity in boots Neurological: Cranial nerves II-XII grossly intact, - - Dysarthria, mild aphasia Psych/Mental Status: Normal Affect, Appropriate Vitals/I&O's: Vital Signs Temp Pulse Resp BP Pulse Ox 98.2 F 68 18 137/80 H 94 05/09/18 07:35 05/09/18 07:35 05/09/18 07:35 05/09/18 07:35 05/09/18 07:35 Oxygen Flow Rate (L/min) 3 Oxygen Delivery Method Room Air Weight: 83.1 kg Body Mass Index (BMI) 30.4 Finger Stick Blood Glucose 100 Intake and Output for Last 24 Hours 05/07/18 05/08/18 05/09/18 23:59 23:59 23:59 Intake Total 240 / 240 360 / 360 240 / 240 Output Total 570 / 570 900 / 900 Balance -330 / -330 -540 / -540 240 / 240 Microbiology Past 72 Hours 05/07/18 04:00 Urine Catheter - Catheter Urine Culture - Preliminary Klebsiella pneumoniae sp pneum Alpha hemolytic organism Current Medications Acetaminophen (Tylenol) 650 mg PO Q6H PRN PRN PRN Reason: Mild Pain (0-3/10)/Headache Last Admin: 05/08/18 17:30 Dose: 650 mg Alprazolam (Xanax) 0.25 mg PO QHS [facility] Last Admin: 05/08/18 20:38 Dose: 0.25 mg Aspirin (Aspirin, Baby) 81 mg PO DAILY@0800 [facility] Last Admin: 05/09/18 08:52 Dose: 81 mg Bisacodyl (Dulcolax) 10 mg RECTAL .PRN X 1 PRN PRN Reason: Constipation Last Admin: 05/07/18 04:05 Dose: 10 mg Bupropion HCl (Wellbutrin Xl) 150 mg PO DAILY [facility] Last Admin: 05/09/18 08:52 Dose: 150 mg Calcium Carbonate (Os-Tr 500) 500 mg PO DAILY@0800 [facility] Last Admin: 05/09/18 08:52 Dose: 500 mg Cholecalciferol (Vitamin D) 2,000 unit PO DAILY [facility] Last Admin: 05/09/18 08:52 Dose: 2,000 unit Clopidogrel Bisulfate (Plavix) 75 mg PO DAILY [facility] Last Admin: 05/09/18 08:52 Dose: 75 mg Enoxaparin Sodium (Lovenox) 40 mg SC DAILY@0600 [facility] Last Admin: 05/09/18 05:12 Dose: 40 mg Levothyroxine Sodium (Synthroid) 75 mcg PO DAILY@0600 [facility] Last Admin: 05/09/18 05:12 Dose: 75 mcg Magnesium Hydroxide (Milk Of Magnesia) 30 ml PO .PRN X 1 PRN PRN Reason: Constipation Last Admin: 05/06/18 18:04 Dose: 30 ml Nitrofurantoin Macrocrystals (Macrobid) 100 mg PO BIDCM [facility] Stop: 05/11/18 17:01 Last Admin: 05/09/18 08:52 Dose: 100 mg Potassium Chloride (K-Dur) 40 meq PO BIDCM [facility] Last Admin: 05/09/18 08:52 Dose: 40 meq Senna/Docusate Sodium (Senokot-S, Yessy-Colace) 2 tablet PO BID [facility] Last Admin: 05/09/18 08:52 Dose: 2 tablet Tamsulosin HCl (Flomax) 0.4 mg PO DAILY@1730 [facility] Last Admin: 05/08/18 17:30 Dose: 0.4 mg Venlafaxine HCl (Effexor Xr) 150 mg PO DAILY [facility] Last Admin: 05/09/18 08:52 Dose: 150 mg Medical Necessity - Tobacco Use Smoking Status: Never smoker Assessment/Plan All Active Problems (Last Reviewed 05/01/18 @ 13:14 by Moises Angelo MD) Slurred speech (Acute) 77 year old F past medical history of hypertension, hyperlipidemia, hypothyroidism, depression/anxiety admitted to inpatient rehab with debility after an acute left pontine infarct. 1. Debility related to Acute left pontine infarct, therapy ongoing, will continue per rehab recommendations. 2. Acute left pontine infarct, history of CVA, on aspirin, Plavix, not on statins because of severe allergies to statins 3. Chronic hyponatremia, remains stable at 130. 4. Hypertension, fairly controlled, not on any medications, will continue to monitor 5. Hyperlipidemia, not on statins due to severe allergy 6. Hypothyroidism, on levothyroxine 7. Depression/anxiety, continue on buproprion and effexor 8. Recurrent falls, recent left ankle fracture, in boots 9. Cognitive impairment, likely vascular dementia, will continue to monitor patient, will encourage non-pharmacologic management, including sleep hygiene etc 10. DVT PPx- Lovenox SC Code Visit Inpatient E&M: 28128 Subs Hosp L2
[2018-05-09 15:52] VITALS: BMI 30.4
[2018-05-09] MEDS: Tamsulosin HCl 0.4 MG Capsule PO (17:36)
[2018-05-09 19:00] VITALS: BP 165/93; PULSE 72; RESP 14; TEMP 37; O2SAT 95
[2018-05-09 22:00] VITALS: PULSE 72; RESP 15; O2SAT 95
[2018-05-09] MEDS: ALPRAZolam 0.25 MG Tablet PO (22:24)
[2018-05-10] MEDS: Enoxaparin 40 MG/0.4 ML Syringe SC (06:34)
[2018-05-10] MEDS: Levothyroxine 75 MCG Tablet PO (06:34)
[2018-05-10 07:08] VITALS: BP 131/76; PULSE 75; RESP 16; TEMP 36.4; O2SAT 91
[2018-05-10] MEDS: Senna/Docusate Sodium 1 Tablet 2 TABLET PO ×2 (09:01→20:14)
[2018-05-10] MEDS: Calcium (Elemental) 500 MG Tablet PO (09:01)
[2018-05-10] MEDS: Venlafaxine XR 150 MG Capsule PO (09:01)
[2018-05-10] MEDS: Clopidogrel Bisulfate 75 MG Tablet PO (09:01)
[2018-05-10] MEDS: Aspirin 81 MG TAB.CHEW PO (09:01)
[2018-05-10] MEDS: Nitrofurantoin Macrocrystals 100 MG Capsule PO ×2 (09:02→16:18)
[2018-05-10] MEDS: buPROPion (XL) 150 MG TABLET.XL PO (09:03)
[2018-05-10 14:11] VITALS: BMI 30.4
[2018-05-10] MEDS: Tamsulosin HCl 0.4 MG Capsule PO (16:18)
[2018-05-10] MEDS: ALPRAZolam 0.25 MG Tablet PO (20:14)
[2018-05-10 20:31] VITALS: BP 128/72; PULSE 74; RESP 16; TEMP 36.8; O2SAT 95
[2018-05-10 22:08] VITALS: BMI 30.4
--- NOTE | 2018-05-11 01:23 | NURSING ---
Reviewed and agree with [facility] documentation and FIMs charting.
[2018-05-11] MEDS: Levothyroxine 75 MCG Tablet PO (05:45)
[2018-05-11] MEDS: Enoxaparin 40 MG/0.4 ML Syringe SC (05:45)
[2018-05-11] MEDS: Magnesium Hydroxide 30 ML UDC PO (05:58)
[2018-05-11 07:45] VITALS: BP 104/70; PULSE 84; RESP 16; TEMP 36.5; O2SAT 92
[2018-05-11] MEDS: buPROPion (XL) 150 MG TABLET.XL PO (07:58)
[2018-05-11] MEDS: Clopidogrel Bisulfate 75 MG Tablet PO (07:58)
[2018-05-11] MEDS: Nitrofurantoin Macrocrystals 100 MG Capsule PO ×2 (07:58→16:55)
[2018-05-11] MEDS: Venlafaxine XR 150 MG Capsule PO (07:58)
[2018-05-11] MEDS: Calcium (Elemental) 500 MG Tablet PO (07:58)
[2018-05-11] MEDS: Senna/Docusate Sodium 1 Tablet 2 TABLET PO ×2 (07:58→20:27)
[2018-05-11] MEDS: Aspirin 81 MG TAB.CHEW PO (09:47)
--- NOTE | 2018-05-11 11:27 | PCM.PN.NEU ---
Subjective: Patient seen and examined. Continue to have some urine retention, increase Flomax to 0.8mg daily. She is tolerating therapy. No issues with Honey thicken liquids and Pureed diet. - Physical Exam General: Alert, Oriented x3, Cooperative HEENT: Atraumatic, PERRLA, EOMI, Normocephalic Neck: Supple, No JVD, Negative Carotid Bruits Lungs: Clear to auscultation, Normal air movement Cardiovascular: Regular rate, No murmurs Abdomen: Bowel Sounds Present, Soft, Non Tender Extremities: No edema, Capillary Refill Less than 3 Seconds Skin: No rashes, No breakdown Musculoskeletal: No Tenderness to Palpation of Joints or Extremities Neurological: Cranial nerves II-XII grossly intact Psych/Mental Status: Normal Affect, Appropriate, Alert and oriented to time, place, person, mood and affect Vital Signs Temp Pulse Resp BP Pulse Ox 97.7 F L 84 16 104/70 92 05/11/18 07:45 05/11/18 07:45 05/11/18 07:45 05/11/18 07:45 05/11/18 07:45 Oxygen Flow Rate (L/min) 3 Oxygen Delivery Method Room Air Weight: 83.1 kg Body Mass Index (BMI) 30.4 Finger Stick Blood Glucose 100 Intake and Output for Last 24 Hours 05/10/18 05/10/18 05/11/18 00:59 23:59 23:59 Intake Total Output Total Balance Microbiology Past 72 Hours 05/07/18 04:00 Urine Culture - Final Urine Catheter - Catheter Klebsiella pneumoniae sp pneum Alpha Hemolytic Streptococcus Active Medications Acetaminophen (Tylenol) 650 mg PO Q6H PRN PRN PRN Reason: Mild Pain (0-3/10)/Headache Last Admin: 05/08/18 17:30 Dose: 650 mg Alprazolam (Xanax) 0.25 mg PO QHS [facility] Last Admin: 05/10/18 20:14 Dose: 0.25 mg Aspirin (Aspirin, Baby) 81 mg PO DAILY@0800 [facility] Last Admin: 05/11/18 09:47 Dose: 81 mg Bisacodyl (Dulcolax) 10 mg RECTAL .PRN X 1 PRN PRN Reason: Constipation Last Admin: 05/07/18 04:05 Dose: 10 mg Bupropion HCl (Wellbutrin Xl) 150 mg PO DAILY [facility] Last Admin: 05/11/18 07:58 Dose: 150 mg Calcium Carbonate (Os-Tr 500) 500 mg PO DAILY@0800 [facility] Last Admin: 05/11/18 07:58 Dose: 500 mg Cholecalciferol (Vitamin D) 2,000 unit PO DAILY [facility] Last Admin: 05/11/18 07:58 Dose: 2,000 unit Clopidogrel Bisulfate (Plavix) 75 mg PO DAILY [facility] Last Admin: 05/11/18 07:58 Dose: 75 mg Enoxaparin Sodium (Lovenox) 40 mg SC DAILY@0600 [facility] Last Admin: 05/11/18 05:45 Dose: 40 mg Levothyroxine Sodium (Synthroid) 75 mcg PO DAILY@0600 [facility] Last Admin: 05/11/18 05:45 Dose: 75 mcg Magnesium Hydroxide (Milk Of Magnesia) 30 ml PO .PRN X 1 PRN PRN Reason: Constipation Last Admin: 05/11/18 05:58 Dose: 30 ml Nitrofurantoin Macrocrystals (Macrobid) 100 mg PO BIDCM [facility] Stop: 05/11/18 17:01 Last Admin: 05/11/18 07:58 Dose: 100 mg Ondansetron HCl (Zofran Odt) 4 mg PO Q8H PRN PRN PRN Reason: NAUSEA/VOMITING [facility] Last Admin: 05/11/18 07:58 Dose: 40 meq Senna/Docusate Sodium (Senokot-S, Yessy-Colace) 2 tablet PO BID [facility] Last Admin: 05/11/18 07:58 Dose: 2 tablet Tamsulosin HCl (Flomax) 0.8 mg PO DAILY@1730 [facility] Venlafaxine HCl (Effexor Xr) 150 mg PO DAILY [facility] Last Admin: 05/11/18 07:58 Dose: 150 mg Medical Necessity - Tobacco Use Smoking Status: Never smoker Assessment/Plan All Active Problems (Last Reviewed 05/01/18 @ 13:14 by Moises Angelo MD) Slurred speech (Acute) Debility s/p Acute left pontine infarct complicated by history of falls likely due to severe peripheral neuropathy likely idiopathic: Goal of therapy is hindu of prior level of functional independence so that she can return home. Plan: - Physical therapy for gait and balance - Occupational Therapy for ADLs - Speech therapy for dysarthria - Aspirin and Plavix - Outpatient sleep study - Permissive hypertension until 05/04/18, then maintain BP less than 130/80 - DVT prophylaxis - Bowel protocol - Flomax started for urine retention => straight cath for 600cc of dark urine patient last voided 8 hrs prior = Increase dose of Flomax to 0.8mg daily - Acute Cystis = start on Macrobid 100mg BID given allergies to Cipro and sulf => resolved - last dose will be at 5pm today - Start Vitamin D 2,000 units daily, and and Calcium 500mg daily to provide bone healing. - Cognitive impairment, likely vascular dementia, will continue non-pharmacologic management, to including sleep hygiene
--- NOTE | 2018-05-11 11:31 | PN.NEURO_ITS ---
Subjective: Patient seen and examined. Continue to have some urine retention, increase Flomax to 0.8mg daily. She is tolerating therapy. No issues with Honey thicken liquids and Pureed diet. - Physical Exam General: Alert, Oriented x3, Cooperative HEENT: Atraumatic, PERRLA, EOMI, Normocephalic Neck: Supple, No JVD, Negative Carotid Bruits Lungs: Clear to auscultation, Normal air movement Cardiovascular: Regular rate, No murmurs Abdomen: Bowel Sounds Present, Soft, Non Tender Extremities: No edema, Capillary Refill Less than 3 Seconds Skin: No rashes, No breakdown Musculoskeletal: No Tenderness to Palpation of Joints or Extremities Neurological: Cranial nerves II-XII grossly intact Psych/Mental Status: Normal Affect, Appropriate, Alert and oriented to time, place, person, mood and affect Vital Signs Temp Pulse Resp BP Pulse Ox 97.7 F L 84 16 104/70 92 05/11/18 07:45 05/11/18 07:45 05/11/18 07:45 05/11/18 07:45 05/11/18 07:45 Oxygen Flow Rate (L/min) 3 Oxygen Delivery Method Room Air Weight: 83.1 kg Body Mass Index (BMI) 30.4 Finger Stick Blood Glucose 100 Intake and Output for Last 24 Hours 05/10/18 05/10/18 05/11/18 00:59 23:59 23:59 Intake Total Output Total Balance Microbiology Past 72 Hours 05/07/18 04:00 Urine Culture - Final Urine Catheter - Catheter Klebsiella pneumoniae sp pneum Alpha Hemolytic Streptococcus Active Medications Acetaminophen (Tylenol) 650 mg PO Q6H PRN PRN PRN Reason: Mild Pain (0-3/10)/Headache Last Admin: 05/08/18 17:30 Dose: 650 mg Alprazolam (Xanax) 0.25 mg PO QHS [facility] Last Admin: 05/10/18 20:14 Dose: 0.25 mg Aspirin (Aspirin, Baby) 81 mg PO DAILY@0800 [facility] Last Admin: 05/11/18 09:47 Dose: 81 mg Bisacodyl (Dulcolax) 10 mg RECTAL .PRN X 1 PRN PRN Reason: Constipation Last Admin: 05/07/18 04:05 Dose: 10 mg Bupropion HCl (Wellbutrin Xl) 150 mg PO DAILY [facility] Last Admin: 05/11/18 07:58 Dose: 150 mg Calcium Carbonate (Os-Tr 500) 500 mg PO DAILY@0800 [facility] Last Admin: 05/11/18 07:58 Dose: 500 mg Cholecalciferol (Vitamin D) 2,000 unit PO DAILY [facility] Last Admin: 05/11/18 07:58 Dose: 2,000 unit Clopidogrel Bisulfate (Plavix) 75 mg PO DAILY [facility] Last Admin: 05/11/18 07:58 Dose: 75 mg Enoxaparin Sodium (Lovenox) 40 mg SC DAILY@0600 [facility] Last Admin: 05/11/18 05:45 Dose: 40 mg Levothyroxine Sodium (Synthroid) 75 mcg PO DAILY@0600 [facility] Last Admin: 05/11/18 05:45 Dose: 75 mcg Magnesium Hydroxide (Milk Of Magnesia) 30 ml PO .PRN X 1 PRN PRN Reason: Constipation Last Admin: 05/11/18 05:58 Dose: 30 ml Nitrofurantoin Macrocrystals (Macrobid) 100 mg PO BIDCM [facility] Stop: 05/11/18 17:01 Last Admin: 05/11/18 07:58 Dose: 100 mg Ondansetron HCl (Zofran Odt) 4 mg PO Q8H PRN PRN PRN Reason: NAUSEA/VOMITING Potassium Chlor[facility] ([facility]) [facility] Last Admin: 05/11/18 07:58 Dose: 40 meq Senna/Docusate Sodium (Senokot-S, Yessy-Colace) 2 tablet PO BID [facility] Last Admin: 05/11/18 07:58 Dose: 2 tablet Tamsulosin HCl (Flomax) 0.8 mg PO DAILY@1730 [facility] Venlafaxine HCl (Effexor Xr) 150 mg PO DAILY [facility] Last Admin: 05/11/18 07:58 Dose: 150 mg Medical Necessity - Tobacco Use Smoking Status: Never smoker Assessment/Plan All Active Problems (Last Reviewed 05/01/18 @ 13:14 by Moises Angelo MD) Slurred speech (Acute) Debility s/p Acute left pontine infarct complicated by history of falls likely due to severe peripheral neuropathy likely idiopathic: Goal of therapy is res toration of prior level of functional independence so that she can return home. Plan: - Physical therapy for gait and balance - Occupational Therapy for ADLs - Speech therapy for dysarthria - Aspirin and Plavix - Outpatient sleep study - Permissive hypertension until 05/04/18, then maintain BP less than 130/80 - DVT prophylaxis - Bowel protocol - Flomax started for urine retention => straight cath for 600cc of dark urine patient last voided 8 hrs prior = Increase dose of Flomax to 0.8mg daily - Acute Cystis = start on Macrobid 100mg BID given allergies to Cipro and sulf => resolved - last dose will be at 5pm today - Start Vitamin D 2,000 units daily, and and Calcium 500mg daily to provide bone healing. - Cognitive impairment, likely vascular dementia, will continue non-pharmaco logic management, to including sleep hygiene
[2018-05-11 16:12] VITALS: BMI 30.4
[2018-05-11] MEDS: Tamsulosin HCl 0.4 MG Capsule 0.8 MG PO (16:54)
[2018-05-11 20:10] VITALS: BP 156/97; PULSE 73; RESP 18; TEMP 36.5; O2SAT 92; BMI 30.4
[2018-05-11] MEDS: ALPRAZolam 0.25 MG Tablet PO (20:25)
[2018-05-11] MEDS: Ondansetron ODT 4 MG Tablet PO (20:25)
--- NOTE | 2018-05-12 04:39 | NURSING ---
Reviewed and agree with [employer] documentation and [facility] charting.
[2018-05-12] MEDS: Levothyroxine 75 MCG Tablet PO (05:42)
[2018-05-12] MEDS: Enoxaparin 40 MG/0.4 ML Syringe SC (05:42)
[2018-05-12] MEDS: Venlafaxine XR 150 MG Capsule PO (08:27)
[2018-05-12] MEDS: Calcium (Elemental) 500 MG Tablet PO (08:27)
[2018-05-12] MEDS: Aspirin 81 MG TAB.CHEW PO (08:27)
[2018-05-12] MEDS: Clopidogrel Bisulfate 75 MG Tablet PO (08:28)
[2018-05-12] MEDS: buPROPion (XL) 150 MG TABLET.XL PO (08:28)
[2018-05-12] MEDS: Senna/Docusate Sodium 1 Tablet 2 TABLET PO ×2 (08:28→21:40)
[2018-05-12 08:42] VITALS: BP 158/92; PULSE 77; RESP 17; TEMP 36.6; O2SAT 94
--- NOTE | 2018-05-12 11:58 | PCM.PN.NEU ---
Subjective: Patient seen and examined. No new complaints. Tolerating therapy. Denies any shortness of breath, blurry vision, or headaches. Pain is well controlled on current medications. Tolerating Pureed diet and Pudding thicken liquids. - Physical Exam General: Alert, Oriented x3, Cooperative HEENT: Atraumatic, PERRLA, EOMI, Normocephalic Neck: Supple, No JVD, Negative Carotid Bruits Lungs: Clear to auscultation, Normal air movement Cardiovascular: Regular rate, No murmurs Abdomen: Bowel Sounds Present, Soft, Non Tender Extremities: No edema, Capillary Refill Less than 3 Seconds Skin: No rashes, No breakdown Musculoskeletal: No Tenderness to Palpation of Joints or Extremities Neurological: Cranial nerves II-XII grossly intact Psych/Mental Status: Normal Affect, Appropriate, Alert and oriented to time, place, person, mood and affect Vital Signs Temp Pulse Resp BP Pulse Ox 97.9 F 77 17 158/92 H 94 05/12/18 08:42 05/12/18 08:42 05/12/18 08:42 05/12/18 08:42 05/12/18 08:42 Oxygen Flow Rate (L/min) 3 Oxygen Delivery Method Room Air Weight: 83.1 kg Body Mass Index (BMI) 30.4 Finger Stick Blood Glucose 100 Intake and Output for Last 24 Hours 05/10/18 05/11/18 05/12/18 23:59 23:59 23:59 Intake Total 200 / 200 Output Total Balance 200 / 200 Microbiology Past 72 Hours 05/07/18 04:00 Urine Culture - Final Urine Catheter - Catheter Klebsiella pneumoniae sp pneum Alpha Hemolytic Streptococcus Active Medications Acetaminophen (Tylenol) 650 mg PO Q6H PRN PRN PRN Reason: Mild Pain (0-3/10)/Headache Last Admin: 05/08/18 17:30 Dose: 650 mg Alprazolam (Xanax) 0.25 mg PO QHS [facility] Last Admin: 05/11/18 20:25 Dose: 0.25 mg Aspirin (Aspirin, Baby) 81 mg PO DAILY@0800 [facility] Last Admin: 05/12/18 08:27 Dose: 81 mg Bisacodyl (Dulcolax) 10 mg RECTAL .PRN X 1 PRN PRN Reason: Constipation Last Admin: 05/07/18 04:05 Dose: 10 mg Bupropion HCl (Wellbutrin Xl) 150 mg PO DAILY [facility] Last Admin: 05/12/18 08:28 Dose: 150 mg Calcium Carbonate (Os-Tr 500) 500 mg PO DAILY@0800 [facility] Last Admin: 05/12/18 08:27 Dose: 500 mg Cholecalciferol (Vitamin D) 2,000 unit PO DAILY [facility] Last Admin: 05/12/18 08:28 Dose: 2,000 unit Clopidogrel Bisulfate (Plavix) 75 mg PO DAILY [facility] Last Admin: 05/12/18 08:28 Dose: 75 mg Enoxaparin Sodium (Lovenox) 40 mg SC DAILY@0600 [facility] Last Admin: 05/12/18 05:42 Dose: 40 mg Levothyroxine Sodium (Synthroid) 75 mcg PO DAILY@0600 [facility] Last Admin: 05/12/18 05:42 Dose: 75 mcg Magnesium Hydroxide (Milk Of Magnesia) 30 ml PO .PRN X 1 PRN PRN Reason: Constipation Last Admin: 05/11/18 05:58 Dose: 30 ml Ondansetron HCl (Zofran Odt) 4 mg PO Q8H PRN PRN PRN Reason: NAUSEA/VOMITING Last Admin: 05/11/18 20:25 Dose: 4 mg [facility] ([facility] Last Admin: 05/12/18 08:27 Dose: 40 meq Senna/Docusate Sodium (Senokot-S, Yessy-Colace) 2 tablet PO BID [facility] Last Admin: 05/12/18 08:28 Dose: 2 tablet Tamsulosin HCl (Flomax) 0.8 mg PO DAILY@1730 [facility] Last Admin: 05/11/18 16:54 Dose: 0.8 mg Venlafaxine HCl (Effexor Xr) 150 mg PO DAILY [facility] Last Admin: 05/12/18 08:27 Dose: 150 mg Medical Necessity - Tobacco Use Smoking Status: Never smoker Assessment/Plan All Active Problems (Last Reviewed 05/01/18 @ 13:14 by Moises Angelo MD) Slurred speech (Acute) Debility s/p Acute left pontine infarct complicated by history of falls likely due to severe peripheral neuropathy likely idiopathic: Goal of therapy is congregational of prior level of functional independence so that she can return home. Plan: - Physical therapy for gait and balance - Occupational Therapy for ADLs - Speech therapy for dysarthria - Aspirin and Plavix - Outpatient sleep study - Permissive hypertension until 05/04/18, then maintain BP less than 130/80 - DVT prophylaxis - Bowel protocol - Flomax started for urine retention => straight cath for 600cc of dark urine patient last voided 8 hrs prior = Increase dose of Flomax to 0.8mg daily - Acute Cystis = start on Macrobid 100mg BID given allergies to Cipro and sulf => resolved - last dose will be at 5pm today - Start Vitamin D 2,000 units daily, and and Calcium 500mg daily to provide bone healing. - Cognitive impairment, likely vascular dementia, will continue non-pharmacologic management, to including sleep hygiene
--- NOTE | 2018-05-12 12:01 | PN.NEURO_ITS ---
Subjective: Patient seen and examined. No new complaints. Tolerating therapy. Denies any shortness of breath, blurry vision, or headaches. Pain is well controlled on current medications. Tolerating Pureed diet and Pudding thicken liquids. - Physical Exam General: Alert, Oriented x3, Cooperative HEENT: Atraumatic, PERRLA, EOMI, Normocephalic Neck: Supple, No JVD, Negative Carotid Bruits Lungs: Clear to auscultation, Normal air movement Cardiovascular: Regular rate, No murmurs Abdomen: Bowel Sounds Present, Soft, Non Tender Extremities: No edema, Capillary Refill Less than 3 Seconds Skin: No rashes, No breakdown Musculoskeletal: No Tenderness to Palpation of Joints or Extremities Neurological: Cranial nerves II-XII grossly intact Psych/Mental Status: Normal Affect, Appropriate, Alert and oriented to time, place, person, mood and affect Vital Signs Temp Pulse Resp BP Pulse Ox 97.9 F 77 17 158/92 H 94 05/12/18 08:42 05/12/18 08:42 05/12/18 08:42 05/12/18 08:42 05/12/18 08:42 Oxygen Flow Rate (L/min) 3 Oxygen Delivery Method Room Air Weight: 83.1 kg Body Mass Index (BMI) 30.4 Finger Stick Blood Glucose 100 Intake and Output for Last 24 Hours 05/10/18 05/11/18 05/12/18 23:59 23:59 23:59 Intake Total 200 / 200 Output Total Balance 200 / 200 Microbiology Past 72 Hours 05/07/18 04:00 Urine Culture - Final Urine Catheter - Catheter Klebsiella pneumoniae sp pneum Alpha Hemolytic Streptococcus Active Medications Acetaminophen (Tylenol) 650 mg PO Q6H PRN PRN PRN Reason: Mild Pain (0-3/10)/Headache Last Admin: 05/08/18 17:30 Dose: 650 mg Alprazolam (Xanax) 0.25 mg PO QHS [facility] Last Admin: 05/11/18 20:25 Dose: 0.25 mg Aspirin (Aspirin, Baby) 81 mg PO DAILY@0800 [facility] Last Admin: 05/12/18 08:27 Dose: 81 mg Bisacodyl (Dulcolax) 10 mg RECTAL .PRN X 1 PRN PRN Reason: Constipation Last Admin: 05/07/18 04:05 Dose: 10 mg Bupropion HCl (Wellbutrin Xl) 150 mg PO DAILY [facility] Last Admin: 05/12/18 08:28 Dose: 150 mg Calcium Carbonate (Os-Tr 500) 500 mg PO DAILY@0800 [facility] Last Admin: 05/12/18 08:27 Dose: 500 mg Cholecalciferol (Vitamin D) 2,000 unit PO DAILY [facility] Last Admin: 05/12/18 08:28 Dose: 2,000 unit Clopidogrel Bisulfate (Plavix) 75 mg PO DAILY [facility] Last Admin: 05/12/18 08:28 Dose: 75 mg Enoxaparin Sodium (Lovenox) 40 mg SC DAILY@0600 [facility] Last Admin: 05/12/18 05:42 Dose: 40 mg Levothyroxine Sodium (Synthroid) 75 mcg PO DAILY@0600 [facility] Last Admin: 05/12/18 05:42 Dose: 75 mcg Magnesium Hydroxide (Milk Of Magnesia) 30 ml PO .PRN X 1 PRN PRN Reason: Constipation Last Admin: 05/11/18 05:58 Dose: 30 ml Ondansetron HCl (Zofran Odt) 4 mg PO Q8H PRN PRN PRN Reason: NAUSEA/VOMITING Last Admin: 05/11/18 20:25 Dose: 4 mg [facility] Last Admin: 05/12/18 08:27 Dose: 40 meq Senna/Docusate Sodium (Senokot-S, Yessy-Colace) 2 tablet PO BID [facility] Last Admin: 05/12/18 08:28 Dose: 2 tablet Tamsulosin HCl (Flomax) 0.8 mg PO DAILY@1730 [facility] Last Admin: 05/11/18 16:54 Dose: 0.8 mg Venlafaxine HCl (Effexor Xr) 150 mg PO DAILY [facility] Last Admin: 05/12/18 08:27 Dose: 150 mg Medical Necessity - Tobacco Use Smoking Status: Never smoker Assessment/Plan All Active Problems (Last Reviewed 05/01/18 @ 13:14 by Moises Angelo MD) Slurred speech (Acute) Debility s/p Acute left pontine infarct complicated by history of falls likely due to severe peripheral neuropathy likely idiopathic: Goal of therapy is christianity of prior level of functional independence so that she can return home. Plan: - Physical therapy for gait and balance - Occupational Therapy for ADLs - Speech therapy for dysarthria - Aspirin and Plavix - Outpatient sleep study - Permissive hypertension until 05/04/18, then maintain BP less than 130/80 - DVT prophylaxis - Bowel protocol - Flomax started for urine retention => straight cath for 600cc of dark urine patient last voided 8 hrs prior = Increase dose of Flomax to 0.8mg daily - Acute Cystis = start on Macrobid 100mg BID given allergies to Cipro and sulf => resolved - last dose will be at 5pm today - Start Vitamin D 2,000 units daily, and and Calcium 500mg daily to provide bone healing. - Cognitive impairment, likely vascular dementia, will continue non- pharmacologic management, to including sleep hygiene
[2018-05-12 15:09] VITALS: BMI 30.4
--- NOTE | 2018-05-12 16:23 | PCM.CONS.GEN ---
Reason for Consult Date of Consultation: 05/12/18 Reason for Consultation: L ankle fracture History of Present Illness: The patient is a 77 year old F who is known to me for a L ankle fracture. I have been following her outpatient for nonoperative treatment of her L ankle fracture. We have had difficulty in keeping her NWB in the L pneumatic cam walker. She decided with her family to go to nursing facility. While there and since our last office appointment she sustained a stroke. She was brought to [facility] and is currently in the Acute Rehab x 11 days. She will likely be here another week and then transferred to a step down level of care. She is still struggling with remaining nwb LLE in the cam walker though feels it has been easier with the assistance of the nursing staff here. She does not have pain. radiographs were done on May 07, 2018 and show interval healing with no increased displacement which is promising. [] Past Medical History Past Medical History (Chronic Problems): Chronic Problems (Last Reviewed 05/01/18 @ 13:14 by Moises Angelo MD) Hypokalemia (Chronic) Presence of aortocoronary bypass graft (Chronic) CABG X 2 CAN-LAD, SVG-CX 06/11/2014 @ [facility] per Dr. Sutton Atherosclerotic heart disease of [place] coronary artery without angina pectoris (Chronic) Presence of coronary angioplasty implant and graft (Chronic) IVUS left main 06/07/2014, PCI-FAREED Prox & Mid LAD 04/13/2015 Paroxysmal atrial fibrillation (Chronic) Dyspnea on exertion (Chronic) Dizziness (Chronic) Near syncope (Chronic) Stenosis of right carotid artery (Chronic) Right bundle branch block (Chronic) Anxiety (Chronic) Hyperlipidemia (Chronic) Hypertension (Chronic) Hypothyroidism (Chronic) CVA (cerebral vascular accident) (Chronic) MRI demonstrated an acute infarct in the right thalamus and left parietal region. 01/2017 Medical History: Medical History (Last Reviewed 05/01/18 @ 13:14 by Moises Angelo MD) Hypokalemia (Chronic) E87.6 Atherosclerotic heart disease of tet[place] coronary artery without angina pectoris (Chronic) I25.10 Paroxysmal atrial fibrillation (Chronic) I48.0 Stenosis of right carotid artery (Chronic) I65.21 Right bundle branch block (Chronic) I45.10 Hyperlipidemia (Chronic) E78.5 Hypertension (Chronic) I10 Hypothyroidism (Chronic) E03.9 CVA (cerebral vascular accident) (Chronic) I63.9 MRI demonstrated an acute infarct in the right thalamus and left parietal region. 01/2017 Allergies atorvastatin Allergy (Verified 05/01/18 19:47) Other muscle weakness codeine Allergy (Verified 05/01/18 19:47) Unknown levofloxacin [From Levaquin] Allergy (Verified 05/01/18 19:47) Pain in joints Penicillins Allergy (Verified 05/01/18 19:47) Swelling tongue swells and hives pravastatin Allergy (Verified 05/01/18 19:47) myalgia Sulfa (Sulfonamide Antibiotics) Allergy (Verified 05/01/18 19:47) Swelling tongue swell and hives Home Medications: Ambulatory Orders Medication Instructions Recorded Levothyroxine [Synthroid] 75 mcg PO DAILY 06/07/14 ALPRAZolam [Xanax] 0.25 mg PO QHS 04/29/18 Bupropion HCl [Bupropion Xl] 150 mg PO DAILY 04/29/18 Clopidogrel Bisulfate [Plavix] 75 mg PO DAILY 04/29/18 Potassium Chloride [Klor-Con M20] 40 meq PO BID 04/29/18 Venlafaxine XR [Effexor Xr] 150 mg PO DAILY 04/29/18 Aspirin [Aspirin, Baby] 81 mg PO DAILY@0800 05/01/18 Surgical History: Surgical History (Last Reviewed 05/01/18 @ 13:14 by Moises Angelo MD) Presence of aortocoronary bypass graft (Chronic) Z95.1 CABG X 2 CAN-LAD, SVG-CX 06/11/2014 @ [facility] per Dr. Sutton Presence of coronary angioplasty implant and graft (Chronic) Z95.5 IVUS left main 06/07/2014, PCI-FAREED Prox & Mid LAD 04/13/2015 Surgical History: arthroscopy, knee, - - CABG, ankle surgery, kidney surgery, knee replacement Psychiatric History: No pertinent psych hx Smoking Status: Never smoker - *Family History Maternal Family History: Family History (Last Reviewed 05/01/18 @ 13:14 by Moises Angelo MD) Father Heart disease Sister Cancer Uncle CAD (coronary artery disease) History Items: - - strokers on mothers sides Paternal Family History: Family History (Last Reviewed 05/01/18 @ 13:14 by Moises Angelo MD) Father Heart disease Sister Cancer Uncle CAD (coronary artery disease) History Items: Heart Disease Subjective: Pt feels well but admits to being unstable if nwb lle. Objective: Vasc: cap refill to digits 1-5 < 3 seconds to LLE, warm to warm, no edema noted, cam walker Neuro: light touch sensation is intact Ms: nontender to palpation of the lateral malleolar fracture Derm: deferred 2/2 LLE wrapped in compressive dressing Radiographs: 3 views of the L ankle were obtained 05/07/2018: fracture line in lateral malleolus is still visible but with interval healing noted, no increased displacement noted or malalignment noted - Physical Exam General: Cooperative Vital Signs Temp Pulse Resp BP Pulse Ox 97.9 F 77 17 158/92 H 94 05/12/18 08:42 05/12/18 08:42 05/12/18 08:42 05/12/18 08:42 05/12/18 08:42 Oxygen Flow Rate (L/min) 3 Oxygen Delivery Method Room Air Weight: 183 lb 3.266 oz Body Mass Index (BMI) 30.4 Finger Stick Blood Glucose 100 Intake and Output for Last 24 Hours 05/10/18 05/11/18 05/12/18 23:59 23:59 23:59 Intake Total 440 / 440 Output Total Balance 440 / 440 Microbiology Past 72 Hours 05/07/18 04:00 Urine Culture - Final Urine Catheter - Catheter Klebsiella pneumoniae sp pneum Alpha Hemolytic Streptococcus Assessment/Plan All Active Problems (Last Reviewed 05/01/18 @ 13:14 by Moises Angelo MD) Slurred speech (Acute) 77 yo F w/ L lateral malleolus fracture which was complicated by a stroke since our last office appointment with her daughter -PT evaluated at bedside -Labs, studies and notes reviewed -Continue NWB LLE in cam walker. Can begin gentle ROM exercises on ankle but no weightbearing yet. Will likely need another 2 weeks and repeat xrays to confirm continued healing prior to advance weightbearing status. -Agree with Ca++ and Vitamin D supplementation. -If patient remains at [facility] (acute rehab or TCU) I can follow her and we will repeat xrays in two weeks, otherwise I will see her as an outpatient in two weeks at the [place] office. -Please call with questions or concerns. Thank you for the consultation.
[2018-05-12] MEDS: Tamsulosin HCl 0.4 MG Capsule 0.8 MG PO (16:26)
--- NOTE | 2018-05-12 16:28 | CON.PCM_ITS ---
Reason for Consult Date of Consultation: 05/12/18 Reason for Consultation: L ankle fracture History of Present Illness: The patient is a 77 year old F who is known to me for a L ankle fracture. I have been following her outpatient for nonoperative treatment of her L ankle fracture. We have had difficulty in keeping her NWB in the L pneumatic cam walker. She decided with her family to go to nursing facility. While there and since our last office appointment she sustained a stroke. She was brought to [facility] and is currently in the Acute Rehab x 11 days. She will likely be here another week and then transferred to a step down level of care. She is still struggling with remaining nwb LLE in the cam walker though feels it has been easier with the assistance of the nursing staff here. She does not have pain. radiographs were done on May 07, 2018 and show interval healing with no increased displacement which is promising. [] Past Medical History Past Medical History (Chronic Problems): Chronic Problems (Last Reviewed 05/01/18 @ 13:14 by Moises Angelo MD) Hypokalemia (Chronic) Presence of aortocoronary bypass graft (Chronic) CABG X 2 CAN-LAD, SVG-CX 06/11/2014 @ [facility] per Dr. Sutton Atherosclerotic heart disease of [place] coronary artery without angina pectoris (Chronic) Presence of coronary angioplasty implant and graft (Chronic) IVUS left main 06/07/2014, PCI-FAREED Prox & Mid LAD 04/13/2015 Paroxysmal atrial fibrillation (Chronic) Dyspnea on exertion (Chronic) Dizziness (Chronic) Near syncope (Chronic) Stenosis of right carotid artery (Chronic) Right bundle branch block (Chronic) Anxiety (Chronic) Hyperlipidemia (Chronic) Hypertension (Chronic) Hypothyroidism (Chronic) CVA (cerebral vascular accident) (Chronic) MRI demonstrated an acute infarct in the right thalamus and left parietal region. 01/2017 Medical History: Medical History (Last Reviewed 05/01/18 @ 13:14 by Moises Angelo MD) Hypokalemia (Chronic) E87.6 Atherosclerotic heart disease of [place] coronary artery without angina pectoris (Chronic) I25.10 Paroxysmal atrial fibrillation (Chronic) I48.0 Stenosis of right carotid artery (Chronic) I65.21 Right bundle branch block (Chronic) I45.10 Hyperlipidemia (Chronic) E78.5 Hypertension (Chronic) I10 Hypothyroidism (Chronic) E03.9 CVA (cerebral vascular accident) (Chronic) I63.9 MRI demonstrated an acute infarct in the right thalamus and left parietal region. 01/2017 Allergies atorvastatin Allergy (Verified 05/01/18 19:47) Other muscle weakness codeine Allergy (Verified 05/01/18 19:47) Unknown levofloxacin [From Levaquin] Allergy (Verified 05/01/18 19:47) Pain in joints Penicillins Allergy (Verified 05/01/18 19:47) Swelling tongue swells and hives pravastatin Allergy (Verified 05/01/18 19:47) myalgia Sulfa (Sulfonamide Antibiotics) Allergy (Verified 05/01/18 19:47) Swelling tongue swell and hives Home Medications: Ambulatory Orders Medication Instructions Recorded Levothyroxine [Synthroid] 75 mcg PO DAILY 06/07/14 ALPRAZolam [Xanax] 0.25 mg PO QHS 04/29/18 Bupropion HCl [Bupropion Xl] 150 mg PO DAILY 04/29/18 Clopidogrel Bisulfate [Plavix] 75 mg PO DAILY 04/29/18 Potassium Chloride [Klor-Con M20] 40 meq PO BID 04/29/18 Venlafaxine XR [Effexor Xr] 150 mg PO DAILY 04/29/18 Aspirin [Aspirin, Baby] 81 mg PO DAILY@0800 05/01/18 Surgical History: Surgical History (Last Reviewed 05/01/18 @ 13:14 by Moises Angelo MD) Presence of aortocoronary bypass graft (Chronic) Z95.1 CABG X 2 CAN-LAD, SVG-CX 06/11/2014 @ [facility] per Dr. Sutton Presence of coronary angioplasty implant and graft (Chronic) Z95.5 IVUS left main 06/07/2014, PCI-FAREED Prox & Mid LAD 04/13/2015 Surgical History: arthroscopy, knee, - - CABG, ankle surgery, kidney surgery, knee replacement Psychiatric History: No pertinent psych hx Smoking Status: Never smoker - *Family History Maternal Family History: Family History (Last Reviewed 05/01/18 @ 13:14 by Moises Angelo MD) Father Heart disease Sister Cancer Uncle CAD (coronary artery disease) History Items: - - strokers on mothers sides Paternal Family History: Family History (Last Reviewed 05/01/18 @ 13:14 by Moises Angelo MD) Father Heart disease Sister Cancer Uncle CAD (coronary artery disease) History Items: Heart Disease Subjective: Pt feels well but admits to being unstable if nwb lle. Objective: Vasc: cap refill to digits 1-5 < 3 seconds to LLE, warm to warm, no edema noted, cam walker Neuro: light touch sensation is intact Ms: nontender to palpation of the lateral malleolar fracture Derm: deferred 2/2 LLE wrapped in compressive dressing Radiographs: 3 views of the L ankle were obtained 05/07/2018: fracture line in lateral malleolus is still visible but with interval healing noted, no increased displacement noted or malalignment noted - Physical Exam General: Cooperative Vital Signs Temp Pulse Resp BP Pulse Ox 97.9 F 77 17 158/92 H 94 05/12/18 08:42 05/12/18 08:42 05/12/18 08:42 05/12/18 08:42 05/12/18 08:42 Oxygen Flow Rate (L/min) 3 Oxygen Delivery Method Room Air Weight: 183 lb 3.266 oz Body Mass Index (BMI) 30.4 Finger Stick Blood Glucose 100 Intake and Output for Last 24 Hours 05/10/18 05/11/18 05/12/18 23:59 23:59 23:59 Intake Total 440 / 440 Output Total Balance 440 / 440 Microbiology Past 72 Hours 05/07/18 04:00 Urine Culture - Final Urine Catheter - Catheter Klebsiella pneumoniae sp pneum Alpha Hemolytic Streptococcus Assessment/Plan All Active Problems (Last Reviewed 05/01/18 @ 13:14 by Moises Angelo MD) Slurred speech (Acute) 77 yo F w/ L lateral malleolus fracture which was complicated by a stroke since our last office appointment with her daughter -PT evaluated at bedside -Labs, studies and notes reviewed -Continue NWB LLE in cam walker. Can begin gentle ROM exercises on ankle but no weightbearing yet. Will likely need another 2 weeks and repeat xrays to confirm continued healing prior to advance weightbearing status. -Agree with Ca++ and Vitamin D supplementation. -If patient remains at [facility] (acute rehab or TCU) I can follow her and we will repeat xrays in two weeks, otherwise I will see her as an outpatient in two weeks at the [place] office. -Please call with questions or concerns. Thank you for the consultation.
--- NOTE | 2018-05-12 16:36 | PN_ITS ---
Subjective: . She said physical therapy did not really go very well today unlike previous states that she was unable to stand on her own. She never had no other complaints and denied any fever. 12 point review of systems otherwise negative. Vitals/I&O's: Vital Signs Temp Pulse Resp BP Pulse Ox 97.9 F 77 17 158/92 H 94 05/12/18 08:42 05/12/18 08:42 05/12/18 08:42 05/12/18 08:42 05/12/18 08:42 Oxygen Flow Rate (L/min) 3 Oxygen Delivery Method Room Air Weight: 183 lb 3.266 oz Body Mass Index (BMI) 30.4 Finger Stick Blood Glucose 100 Intake and Output for Last 24 Hours 05/10/18 05/11/18 05/12/18 23:59 23:59 23:59 Intake Total 440 / 440 Output Total Balance 440 / 440 General: Alert, Oriented x3, Cooperative, No apparent distress HEENT: Atraumatic, PERRLA, EOMI, Normocephalic Oral: Moist Mucosa Neck: Supple, No JVD, Negative Carotid Bruits Lungs: Clear to auscultation, Normal air movement, No rhonchi, No wheeze, No rales Cardiovascular: Regular rate, Regular Rhythm, Normal S1, Normal S2, No murmurs Abdomen: Bowel Sounds Present, Soft, Non Tender, Non-Distended, No Hepato- splenomegaly Extremities: - - LLE in cast boot Skin: No rashes, No breakdown Musculoskeletal: No Tenderness to Palpation of Joints or Extremities Lymphatic: No Cervical, Supraclavicular, or Inguinal Adenopathy Neurological: Cranial nerves II-XII grossly intact, Neuro grossly intact Psych/Mental Status: Normal Affect, Appropriate, Alert and oriented to time, place, person, mood and affect Microbiology Past 72 Hours 05/07/18 04:00 Urine Catheter - Catheter Urine Culture - Final Klebsiella pneumoniae sp pneum Alpha Hemolytic Streptococcus Current Medications Acetaminophen (Tylenol) 650 mg PO Q6H PRN PRN PRN Reason: Mild Pain (0-3/10)/Headache Last Admin: 05/08/18 17:30 Dose: 650 mg Alprazolam (Xanax) 0.25 mg PO QHS [facility] Last Admin: 05/11/18 20:25 Dose: 0.25 mg Aspirin (Aspirin, Baby) 81 mg PO DAILY@0800 [facility] Last Admin: 05/12/18 08:27 Dose: 81 mg Bisacodyl (Dulcolax) 10 mg RECTAL .PRN X 1 PRN PRN Reason: Constipation Last Admin: 05/07/18 04:05 Dose: 10 mg Bupropion HCl (Wellbutrin Xl) 150 mg PO DAILY [facility] Last Admin: 05/12/18 08:28 Dose: 150 mg Calcium Carbonate (Os-Tr 500) 500 mg PO DAILY@0800 [facility] Last Admin: 05/12/18 08:27 Dose: 500 mg Cholecalciferol (Vitamin D) 2,000 unit PO DAILY [facility] Last Admin: 05/12/18 08:28 Dose: 2,000 unit Clopidogrel Bisulfate (Plavix) 75 mg PO DAILY [facility] Last Admin: 05/12/18 08:28 Dose: 75 mg Enoxaparin Sodium (Lovenox) 40 mg SC DAILY@0600 [facility] Last Admin: 05/12/18 05:42 Dose: 40 mg Levothyroxine Sodium (Synthroid) 75 mcg PO DAILY@0600 [facility] Last Admin: 05/12/18 05:42 Dose: 75 mcg Magnesium Hydroxide (Milk Of Magnesia) 30 ml PO .PRN X 1 PRN PRN Reason: Constipation Last Admin: 05/11/18 05:58 Dose: 30 ml Ondansetron HCl (Zofran Odt) 4 mg PO Q8H PRN PRN PRN Reason: NAUSEA/VOMITING Last Admin: 05/11/18 20:25 Dose: 4 mg Potassium [facility] ([facility]) [facility] Admin: 05/12/18 16:26 Dose: 40 meq Senna/Docusate Sodium (Senokot-S, Yessy-Colace) 2 tablet PO BID [facility] Last Admin: 05/12/18 08:28 Dose: 2 tablet Tamsulosin HCl (Flomax) 0.8 mg PO DAILY@1730 [facility] Last Admin: 05/12/18 16:26 Dose: 0.8 mg Venlafaxine HCl (Effexor Xr) 150 mg PO DAILY [facility] Last Admin: 05/12/18 08:27 Dose: 150 mg Medical Necessity - Tobacco Use Smoking Status: Never smoker Assessment/Plan All Active Problems (Last Reviewed 05/01/18 @ 13:14 by Moises Angelo MD) Slurred speech (Acute) 77 year old F past medical history of hypertension, hyperlipidemia, hypothyroidism, depression/anxiety admitted to inpatient rehab with debility after an acute left pontine infarct. 1:LEft pontine infact: * Stable. * On aspirin and Plavix. * Not on statin on account of allergy to statins. * Intensive physical therapy as per PT/OT recommendations. * 2. Debility due to left pontine infarct: as under 1. 3. Hypertension: Fairly controlled. On any medications. Will monitor. 4. Hyperlipidemia: Diet controlled. Not on statins. 5. Hypothyroidism: On Synthroid 6. Chronic hyponatremia stable we will monitor. 7. Depression and anxiety: on bupropion and effexor. 8. Mild cognitive impairment: likely due to vascular dementia. Stable. DVT prophylaxis: lovenox Code Visit Inpatient E&M: 96517 Subs Hosp L2
[2018-05-12 21:30] VITALS: BP 158/81; PULSE 70; RESP 16; RESP 70; TEMP 36.8; O2SAT 95; BMI 30.4
[2018-05-12] MEDS: ALPRAZolam 0.25 MG Tablet PO (21:40)
--- NOTE | 2018-05-13 02:20 | NURSING ---
Reviewed and agree with DESIGN COORDINATOR documentation and FIMs charting.
[2018-05-13] MEDS: Enoxaparin 40 MG/0.4 ML Syringe SC (06:20)
[2018-05-13] MEDS: Levothyroxine 75 MCG Tablet PO (06:21)
[2018-05-13 08:17] VITALS: BP 116/72; PULSE 76; RESP 16; TEMP 36.7; O2SAT 92
[2018-05-13] MEDS: Aspirin 81 MG TAB.CHEW PO (08:20)
[2018-05-13] MEDS: Calcium (Elemental) 500 MG Tablet PO (08:20)
[2018-05-13] MEDS: Venlafaxine XR 150 MG Capsule PO (08:20)
[2018-05-13] MEDS: buPROPion (XL) 150 MG TABLET.XL PO (08:20)
[2018-05-13] MEDS: Clopidogrel Bisulfate 75 MG Tablet PO (08:20)
[2018-05-13] MEDS: Senna/Docusate Sodium 1 Tablet 2 TABLET PO ×2 (08:21→21:14)
--- NOTE | 2018-05-13 12:01 | PCM.PN.NEU ---
Subjective: No new complaints. Tolerating therapies. No GI or complaints. She is somewhat frustrated with her language deficit. - Physical Exam General: Alert, Oriented x3, Cooperative Neurological: Slurred Speech Psych/Mental Status: Normal Affect, Alert and oriented to time, place, person, mood and affect Vital Signs Temp Pulse Resp BP Pulse Ox 36.7 C 76 16 116/72 92 05/13/18 08:17 05/13/18 08:17 05/13/18 08:17 05/13/18 08:17 05/13/18 08:17 Oxygen Flow Rate (L/min) 3 Oxygen Delivery Method Room Air Weight: 83.1 kg Body Mass Index (BMI) 30.4 Finger Stick Blood Glucose 100 Intake and Output for Last 24 Hours 05/11/18 05/12/18 05/13/18 23:59 23:59 23:59 Intake Total 440 / 440 240 / 240 Balance 440 / 440 240 / 240 Microbiology Past 72 Hours 05/07/18 04:00 Urine Culture - Final Urine Catheter - Catheter Klebsiella pneumoniae sp pneum Alpha Hemolytic Streptococcus Medical Necessity - Tobacco Use Smoking Status: Never smoker Assessment/Plan All Active Problems (Last Reviewed 05/01/18 @ 13:14 by Moises Angelo MD) Slurred speech (Acute) Debility s/p Acute left pontine infarct complicated by history of falls likely due to severe peripheral neuropathy likely idiopathic: Goal of therapy is christianity of prior level of functional independence so that she can return home. Plan: - Physical therapy for gait and balance - Occupational Therapy for ADLs - Speech therapy for dysarthria - Aspirin and Plavix - Outpatient sleep study - Permissive hypertension until 05/04/18, then maintain BP less than 130/80 - DVT prophylaxis - Bowel protocol - Flomax started for urine retention => straight cath for 600cc of dark urine patient last voided 8 hrs prior = Increase dose of Flomax to 0.8mg daily - Acute Cystis = start on Macrobid 100mg BID given allergies to Cipro and sulf => resolved - last dose will be at 5pm today - Start Vitamin D 2,000 units daily, and and Calcium 500mg daily to provide bone healing. - Cognitive impairment, likely vascular dementia, will continue non-pharmacologic management, to including sleep hygiene
[2018-05-13 17:00] VITALS: BMI 30.4
[2018-05-13] MEDS: Tamsulosin HCl 0.4 MG Capsule 0.8 MG PO (17:24)
[2018-05-13] MEDS: ALPRAZolam 0.25 MG Tablet PO (21:14)
[2018-05-13 21:20] VITALS: BP 133/84; PULSE 82; RESP 18; TEMP 36.4; O2SAT 92; BMI 30.4
--- NOTE | 2018-05-14 02:30 | NURSING ---
REVIEWED AND AGREE WITH HOT REPAIRMAN'S FIM AND HANDOFF CHARTING.
[2018-05-14] MEDS: Enoxaparin 40 MG/0.4 ML Syringe SC (05:24)
[2018-05-14] MEDS: Levothyroxine 75 MCG Tablet PO (05:25)
--- NOTE | 2018-05-14 07:10 | NURSING ---
pt had yet to void on this shift and could not remember when she had voided last. pt place on the bsc to try and void and was unable, pt returned to bed adn was bladder scanned at this time and value was 417cc. day shift rn made aware
[2018-05-14] MEDS: Senna/Docusate Sodium 1 Tablet 2 TABLET PO ×2 (08:00→20:57)
[2018-05-14] MEDS: Venlafaxine XR 150 MG Capsule PO (08:00)
[2018-05-14] MEDS: Aspirin 81 MG TAB.CHEW PO (08:00)
[2018-05-14] MEDS: Calcium (Elemental) 500 MG Tablet PO (08:00)
[2018-05-14] MEDS: Clopidogrel Bisulfate 75 MG Tablet PO (08:00)
[2018-05-14] MEDS: buPROPion (XL) 150 MG TABLET.XL PO (08:01)
[2018-05-14 09:03] VITALS: BP 136/78; PULSE 74; RESP 16; O2SAT 96
[2018-05-14 10:15] VITALS: TEMP 36.3
--- NOTE | 2018-05-14 11:30 | PCM.PN.NEU ---
Subjective: No Issues overnight. Staffed in team meeting today. All questions were answered. With PT for transfer patient is minimal assist with parallel bars, but for pivot and transfer needs moderate assist, walking is difficult due to incoordination secondary to stroke. With OT minimal assist with bars, minimal assist for bathing, upper body-minimal assist, lower body moderate to maximum assist, tend to fall backwards. With ST noted to have silent aspiration, still needs to have continued work with speech and cognition. per nursing has some urinary retention intermittently. 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 MRI brain done on 04/30/18 showed acute left pontine infarct, MRA head report to show left M2 stenosis and MRA neck reported to show right ICA < 50% stenosis. on Dual AP with ASA/Plavix but is allergic to statins. She had a fall about a month ago in the bathroom following which she was diagnosed with left ankle fracture that was treated non-operatively. She had left ankle xray on 05/07/18 which was reported to showing healing nondisplaced fracture of the lateral malleolus. She was then seen by Dr. Whalen (who had treated her initially for her ankle fracture), in the rehab and advised NWB LLE, can begin gentle ROM exercise on ankle but no weight bearing yet, will need another 2 weeks and repeat X ray to confirm continued healing prior to advance weight bearing status. - Physical Exam General: Alert HEENT: Normocephalic Neck: Supple Lungs: Normal air movement Cardiovascular: Normal S1, Normal S2 Abdomen: Bowel Sounds Present Extremities: No cyanosis Neurological: - - consious, alert, AoAx3, CN 2-12 grossly intact, moves all 4 extremities, mild left sided weakness, denies any sensory loss, left side cerebellar signs and ataxia present, Reflexes + B/L B/S/T/K/A, gait deferred, dysarthria present Psych/Mental Status: Normal Affect Vital Signs Temp Pulse Resp BP Pulse Ox 97.3 F L 74 16 136/78 H 96 05/14/18 10:15 05/14/18 09:03 05/14/18 09:03 05/14/18 09:03 05/14/18 09:03 Oxygen Flow Rate (L/min) 3 Oxygen Delivery Method Room Air Weight: 83.3 kg Body Mass Index (BMI) 30.4 Finger Stick Blood Glucose 100 Intake and Output for Last 24 Hours 05/12/18 05/13/18 05/14/18 23:59 23:59 23:59 Intake Total 440 / 440 240 / 240 240 / 240 Balance 440 / 440 240 / 240 240 / 240 Medical Necessity - Tobacco Use Smoking Status: Never smoker Assessment/Plan All Active Problems (Last Reviewed 05/01/18 @ 13:14 by Moises Angelo MD) Slurred speech (Acute) 77 F with PMH HTN, HLD, old stroke, acute right thalamus and small left parietal stroke on , H/O cavernous hemangioma vs meningioma s/p radiation, CAD s/p stents, fibromyalgia, depression and hypothyroidism, admitted to [facility] on 05/01/2018 with debility and worsening dysarthria, s/p acute left pontine infarct, for > 3 hrs therapy daily, with a goal of returning back home at or near her prior level of functional independence. MRI brain done on 04/30/18 showed acute left pontine infarct, MRA head report to show left M2 stenosis and MRA neck reported to show right ICA < 50% stenosis. on Dual AP with ASA/Plavix but is allergic to statins. She had a fall about a month ago in the bathroom following which she was diagnosed with left ankle fracture that was treated non-operatively. She had left ankle xray on 05/07/18 which was reported to showing healing nondisplaced fracture of the lateral malleolus. She was then seen by Dr. Whalen (who had treated her initially for her ankle fracture), in the rehab and advised NWB LLE, can begin gentle ROM exercise on ankle but no weight bearing yet, will need another 2 weeks and repeat X ray to confirm continued healing prior to advance weight bearing status. Swallow study done on 05/04/18 reported to show silent aspiration Plan: - Physical therapy for gait and balance - Occupational Therapy for ADLs - Speech therapy for dysarthria and swallow evaluation - Bowel protocol - Analgesics as needed - DVT prophylaxis - Acute left pontine stroke: on dual AP, Aspirin and Plavix, allergic to statins - Hypothyroidism- on levothyroxine - Depression- on Wellbutrin and Effexor - Chronic hyponatremia- Repeat Na 129, further management per hospitalist recommendations. - Urinary retention- on Flomax, may need urology consult if no improvement. - Outpatient sleep study - Vitamin D 2,000 units daily, and and Calcium 500mg daily to provide bone healing. - Fall precautions - Further medical management per hospitalist recommendation.
--- NOTE | 2018-05-14 12:00 | CASEMGMT ---
Team meeting held. Patient present as well as patient daughter. No discharge date set at this time. Patient to continue with further care and treatment on the Inpatient Rehab Unit. Patient approved 23 Medicare days with a discharge on or by 05/24/18. Patient and patient family aware that current recommendation would be for patient to discharge to a correction facility from Inpatient Rehab. Patient is agreeable to this recommendation and is planning to discharge to either the [facility] or the Transitional Care Unit. Patient and patient family planning to discuss further and social work to follow up with choice made next week. Support given. Will continue to follow. Kasie Cochran, CAREER RESOURCE TECHNICIAN, [employer]GER [employer]
[2018-05-14 14:41] VITALS: BMI 30.4
[2018-05-14 14:47] LABS: Sodium Level 129 mmol/L (136-145)
--- NOTE | 2018-05-14 14:56 | NURSING ---
Text Dr. Plunkett Na+ results.
[2018-05-14] MEDS: 0.9% Normal Saline 1,000 ML 75 ML IV (16:01)
--- NOTE | 2018-05-14 16:56 | PCM.PN.HOSP ---
Subjective: Patient seen and examined. Complaint of feeling tired after physical therapy. She denied any fever or chills, cough or chest pain, shortness of breath, abdominal pain, diarrhea vomiting. Review of systems otherwise negative. Sodium done today was 129. She does have chronic hyponatremia. Vitals/I&O's: Vital Signs Temp Pulse Resp BP Pulse Ox 97.3 F L 74 16 136/78 H 96 05/14/18 10:15 05/14/18 09:03 05/14/18 09:03 05/14/18 09:03 05/14/18 09:03 Oxygen Flow Rate (L/min) 3 Oxygen Delivery Method Room Air Weight: 183 lb 10.321 oz Body Mass Index (BMI) 30.4 Finger Stick Blood Glucose 100 Intake and Output for Last 24 Hours 05/12/18 05/13/18 05/14/18 23:59 23:59 23:59 Intake Total 440 / 440 240 / 240 360 / 360 Balance 440 / 440 240 / 240 360 / 360 General: Alert, Oriented x3, Cooperative, No apparent distress HEENT: Atraumatic, PERRLA, EOMI, Normocephalic Oral: Moist Mucosa Neck: Supple, No JVD, Negative Carotid Bruits Lungs: Clear to auscultation, Normal air movement, No rhonchi, No wheeze Cardiovascular: Regular rate, Regular Rhythm, Normal S1, Normal S2, No murmurs Abdomen: Bowel Sounds Present, Soft, Non Tender, Non-Distended, No Hepato-splenomegaly Extremities: No clubbing, No cyanosis, No edema, Capillary Refill Less than 3 Seconds, - - RLE in boot. Skin: No rashes, No breakdown Musculoskeletal: No Tenderness to Palpation of Joints or Extremities Lymphatic: No Cervical, Supraclavicular, or Inguinal Adenopathy Neurological: Cranial nerves II-XII grossly intact Psych/Mental Status: Normal Affect, Appropriate, Alert and oriented to time, place, person, mood and affect Laboratory Results 05/14/18 14:05: Sodium 129 L Current Medications Acetaminophen (Tylenol) 650 mg PO Q6H PRN PRN PRN Reason: Mild Pain (0-3/10)/Headache Last Admin: 05/08/18 17:30 Dose: 650 mg Alprazolam (Xanax) 0.25 mg PO QHS MELODY Last Admin: 05/13/18 21:14 Dose: 0.25 mg Aspirin (Aspirin, Baby) 81 mg PO DAILY@0800 [facility] Last Admin: 05/14/18 08:00 Dose: 81 mg Bisacodyl (Dulcolax) 10 mg RECTAL .PRN X 1 PRN PRN Reason: Constipation Last Admin: 05/07/18 04:05 Dose: 10 mg Bupropion HCl (Wellbutrin Xl) 150 mg PO DAILY [facility] Last Admin: 05/14/18 08:01 Dose: 150 mg Calcium Carbonate (Os-Tr 500) 500 mg PO DAILY@0800 [facility] Last Admin: 05/14/18 08:00 Dose: 500 mg Cholecalciferol (Vitamin D) 2,000 unit PO DAILY [facility] Last Admin: 05/14/18 08:01 Dose: 2,000 unit Clopidogrel Bisulfate (Plavix) 75 mg PO DAILY [facility] Last Admin: 05/14/18 08:00 Dose: 75 mg Enoxaparin Sodium (Lovenox) 40 mg SC DAILY@0600 [facility] Last Admin: 05/14/18 05:24 Dose: 40 mg Sodium Chloride () 1,000 mls @ 75 mls/hr IV .[id number] [facility] Stop: 05/15/18 05:04 Last Admin: 05/14/18 16:01 Dose: 75 mls/hr Levothyroxine Sodium (Synthroid) 75 mcg PO DAILY@0600 [facility] Last Admin: 05/14/18 05:25 Dose: 75 mcg Magnesium Hydroxide (Milk Of Magnesia) 30 ml PO .PRN X 1 PRN PRN Reason: Constipation Last Admin: 05/11/18 05:58 Dose: 30 ml Ondansetron HCl (Zofran Odt) 4 mg PO Q8H PRN PRN PRN Reason: NAUSEA/VOMITING Last Admin: 05/11/18 20:25 Dose: 4 mg Potassium [facility] ([facility]) [facility] Last Admin: 05/14/18 08:00 Dose: 40 meq Senna/Docusate Sodium (Senokot-S, Yessy-Colace) 2 tablet PO BID [facility] Last Admin: 05/14/18 08:00 Dose: 2 tablet Tamsulosin HCl (Flomax) 0.8 mg PO DAILY@1730 [facility] Last Admin: 05/13/18 17:24 Dose: 0.8 mg Venlafaxine HCl (Effexor Xr) 150 mg PO DAILY [facility] Last Admin: 05/14/18 08:00 Dose: 150 mg Medical Necessity - Tobacco Use Smoking Status: Never smoker Assessment/Plan All Active Problems (Last Reviewed 05/01/18 @ 13:14 by Moises Angelo MD) Slurred speech (Acute) 77 year old F past medical history of hypertension, hyperlipidemia, hypothyroidism, depression/anxiety admitted to inpatient rehab with debility after an acute left pontine infarct. 1:LEft pontine infact: Stable. On aspirin and Plavix. Not on statin on account of allergy to statins. Intensive physical therapy as per PT/OT recommendations. 2. Hyponatremia has chronic hyponatremia. Na today is 129 hydrate gently with IVF NS @ 75cc/hr x 1 bag recheck BMP tomorrow morning 3. Debility due to left pontine infarct: as under 1. 4. Hypertension: Fairly controlled. On any medications. Will monitor. 5. Hyperlipidemia: Diet controlled. Not on statins. 6. Hypothyroidism: On Synthroid 7. Chronic hyponatremia stable we will monitor. 8. Depression and anxiety: on bupropion and effexor. 9. Mild cognitive impairment: likely due to vascular dementia. Stable. DVT prophylaxis: lovenox Code Visit Inpatient E&M: 26566 Subs Hosp L2
--- NOTE | 2018-05-14 17:00 | PN_ITS ---
Subjective: Patient seen and examined. Complaint of feeling tired after physical therapy. She denied any fever or chills, cough or chest pain, shortness of breath, abdominal pain, diarrhea vomiting. Review of systems otherwise negative. Sodium done today was 129. She does have chronic hyponatremia. Vitals/I&O's: Vital Signs Temp Pulse Resp BP Pulse Ox 97.3 F L 74 16 136/78 H 96 05/14/18 10:15 05/14/18 09:03 05/14/18 09:03 05/14/18 09:03 05/14/18 09:03 Oxygen Flow Rate (L/min) 3 Oxygen Delivery Method Room Air Weight: 183 lb 10.321 oz Body Mass Index (BMI) 30.4 Finger Stick Blood Glucose 100 Intake and Output for Last 24 Hours 05/12/18 05/13/18 05/14/18 23:59 23:59 23:59 Intake Total 440 / 440 240 / 240 360 / 360 Balance 440 / 440 240 / 240 360 / 360 General: Alert, Oriented x3, Cooperative, No apparent distress HEENT: Atraumatic, PERRLA, EOMI, Normocephalic Oral: Moist Mucosa Neck: Supple, No JVD, Negative Carotid Bruits Lungs: Clear to auscultation, Normal air movement, No rhonchi, No wheeze Cardiovascular: Regular rate, Regular Rhythm, Normal S1, Normal S2, No murmurs Abdomen: Bowel Sounds Present, Soft, Non Tender, Non-Distended, No Hepato- splenomegaly Extremities: No clubbing, No cyanosis, No edema, Capillary Refill Less than 3 Seconds, - - RLE in boot. Skin: No rashes, No breakdown Musculoskeletal: No Tenderness to Palpation of Joints or Extremities Lymphatic: No Cervical, Supraclavicular, or Inguinal Adenopathy Neurological: Cranial nerves II-XII grossly intact Psych/Mental Status: Normal Affect, Appropriate, Alert and oriented to time, place, person, mood and affect Laboratory Results 05/14/18 14:05: Sodium 129 L Current Medications Acetaminophen (Tylenol) 650 mg PO Q6H PRN PRN PRN Reason: Mild Pain (0-3/10)/Headache Last Admin: 05/08/18 17:30 Dose: 650 mg Alprazolam (Xanax) 0.25 mg PO QHS MELODY Last Admin: 05/13/18 21:14 Dose: 0.25 mg Aspirin (Aspirin, Baby) 81 mg PO DAILY@0800 [facility] Last Admin: 05/14/18 08:00 Dose: 81 mg Bisacodyl (Dulcolax) 10 mg RECTAL .PRN X 1 PRN PRN Reason: Constipation Last Admin: 05/07/18 04:05 Dose: 10 mg Bupropion HCl (Wellbutrin Xl) 150 mg PO DAILY [facility] Last Admin: 05/14/18 08:01 Dose: 150 mg Calcium Carbonate (Os-Tr 500) 500 mg PO DAILY@0800 [facility] Last Admin: 05/14/18 08:00 Dose: 500 mg Cholecalciferol (Vitamin D) 2,000 unit PO DAILY [facility] Last Admin: 05/14/18 08:01 Dose: 2,000 unit Clopidogrel Bisulfate (Plavix) 75 mg PO DAILY [facility] Last Admin: 05/14/18 08:00 Dose: 75 mg Enoxaparin Sodium (Lovenox) 40 mg SC DAILY@0600 [facility] Last Admin: 05/14/18 05:24 Dose: 40 mg Sodium Chloride () 1,000 mls @ 75 mls/hr IV .[id number] [facility] Stop: 05/15/18 05:04 Last Admin: 05/14/18 16:01 Dose: 75 mls/hr Levothyroxine Sodium (Synthroid) 75 mcg PO DAILY@0600 [facility] Last Admin: 05/14/18 05:25 Dose: 75 mcg Magnesium Hydroxide (Milk Of Magnesia) 30 ml PO .PRN X 1 PRN PRN Reason: Constipation Last Admin: 05/11/18 05:58 Dose: 30 ml Ondansetron HCl (Zofran Odt) 4 mg PO Q8H PRN PRN PRN Reason: NAUSEA/VOMITING Last Admin: 05/11/18 20:25 Dose: 4 mg Potassium Chloride (K-Dur) [facility] Last Admin: 05/14/18 08:00 Dose: 40 meq Senna/Docusate Sodium (Senokot-S, Yessy-Colace) 2 tablet PO BID [facility] Last Admin: 05/14/18 08:00 Dose: 2 tablet Tamsulosin HCl (Flomax) 0.8 mg PO DAILY@1730 [facility] Last Admin: 05/13/18 17:24 Dose: 0.8 mg Venlafaxine HCl (Effexor Xr) 150 mg PO DAILY [facility] Last Admin: 05/14/18 08:00 Dose: 150 mg Medical Necessity - Tobacco Use Smoking Status: Never smoker Assessment/Plan All Active Problems (Last Reviewed 05/01/18 @ 13:14 by Moises Angelo MD) Slurred speech (Acute) 77 year old F past medical history of hypertension, hyperlipidemia, hypothyroidism, depression/anxiety admitted to inpatient rehab with debility a fter an acute left pontine infarct. 1:LEft pontine infact: * Stable. * On aspirin and Plavix. * Not on statin on account of allergy to statins. * Intensive physical therapy as per PT/OT recommendations. * 2. Hyponatremia * has chronic hyponatremia. Na today is 129 * hydrate gently with IVF NS @ 75cc/hr x 1 bag * recheck BMP tomorrow morning 3. Debility due to left pontine infarct: as under 1. 4. Hypertension: Fairly controlled. On any medications. Will monitor. 5. Hyperlipidemia: Diet controlled. Not on statins. 6. Hypothyroidism: On Synthroid 7. Chronic hyponatremia stable we will monitor. 8. Depression and anxiety: on bupropion and effexor. 9. Mild cognitive impairment: likely due to vascular dementia. Stable. DVT prophylaxis: lovenox Code Visit Inpatient E&M: 43979 Subs Hosp L2
[2018-05-14] MEDS: Tamsulosin HCl 0.4 MG Capsule 0.8 MG PO (18:06)
[2018-05-14 20:54] VITALS: BP 120/85; PULSE 90; RESP 18; TEMP 36.4; O2SAT 98
[2018-05-14] MEDS: ALPRAZolam 0.25 MG Tablet PO (20:58)
[2018-05-14 22:36] VITALS: BMI 30.4
[2018-05-15 06:15] LABS: Anion Gap 8 (5-15); BUN 7 mg/dL (7-18); BUN/Creat Ratio 8.4 RATIO (10-20); Chloride 99 mmol/L (98-107); Creatinine, Serum 0.83 mg/dL (0.55-1.02); EST Glomerular Filtration Rate 71 mL/min (>60); Est Glom Filt Rate - Afr Amer 85 mL/min (>60); Estimated Creatinine Clearance 53.14 ml/min; Glucose 85 mg/dL (74-106); Potassium 4.2 mmol/L (3.5-5.1); Sodium Level 133 mmol/L (136-145)
[2018-05-15] MEDS: Levothyroxine 75 MCG Tablet PO (06:19)
[2018-05-15] MEDS: Enoxaparin 40 MG/0.4 ML Syringe SC (06:19)
[2018-05-15 07:00] VITALS: BP 135/89; PULSE 67; RESP 20; TEMP 36.9; O2SAT 96
[2018-05-15] MEDS: Calcium (Elemental) 500 MG Tablet PO (07:51)
[2018-05-15] MEDS: Aspirin 81 MG TAB.CHEW PO (07:51)
[2018-05-15] MEDS: buPROPion (XL) 150 MG TABLET.XL PO (07:51)
[2018-05-15] MEDS: Clopidogrel Bisulfate 75 MG Tablet PO (07:51)
[2018-05-15] MEDS: Senna/Docusate Sodium 1 Tablet 2 TABLET PO ×2 (07:51→21:00)
[2018-05-15] MEDS: Venlafaxine XR 150 MG Capsule PO (07:51)
[2018-05-15 10:11] VITALS: BMI 30.4
--- NOTE | 2018-05-15 12:17 | PCM.PN.NEU ---
Subjective: No Issues overnight. Discussed with nursing staff. Patient found to be sitting down on the floor this afternoon, denies any falls, denies any hip pain, knee pain or tenderness anywhere. Denies any head injury - Physical Exam General: Alert HEENT: Normocephalic Neck: Supple Lungs: Normal air movement Cardiovascular: Normal S1, Normal S2 Abdomen: Bowel Sounds Present Extremities: No cyanosis Neurological: - - consious, alert, AoAx3, CN 2-12 grossly intact, moves all 4 extremities, mild left sided weakness, denies any sensory loss, left side cerebellar signs and ataxia present, Reflexes + B/L B/S/T/K/A, gait deferred, dysarthria present Psych/Mental Status: Normal Affect Vital Signs Temp Pulse Resp BP Pulse Ox 98.4 F 67 20 H 135/89 H 96 05/15/18 07:00 05/15/18 07:00 05/15/18 07:00 05/15/18 07:00 05/15/18 07:00 Oxygen Flow Rate (L/min) 3 Oxygen Delivery Method Room Air Weight: 83.3 kg Body Mass Index (BMI) 30.4 Finger Stick Blood Glucose 100 Intake and Output for Last 24 Hours 05/13/18 05/14/18 05/15/18 23:59 23:59 23:59 Intake Total 240 / 240 600 / 600 240 / 240 Output Total 500 / 500 Balance 240 / 240 600 / 600 -260 / -260 Laboratory Tests Past 24 Hrs 05/14/18 05/15/18 14:05 05:40 Sodium 129 L 133 L Potassium 4.2 Chloride 99 Carbon Dioxide 26.0 Anion Gap 8 BUN 7 Creatinine 0.83 Estim Creat Clear Calc 53.14 Est GFR (MDRD) Af Amer 85 Est GFR (MDRD) Non-Af 71 BUN/Creatinine Ratio 8.4 L Glucose 85 Calcium 8.0 L Medical Necessity - Tobacco Use Smoking Status: Never smoker Assessment/Plan All Active Problems (Last Reviewed 05/01/18 @ 13:14 by Moises Angelo MD) Slurred speech (Acute) 77 F with PMH HTN, HLD, old stroke, acute right thalamus and small left parietal stroke on , H/O cavernous hemangioma vs meningioma s/p radiation, CAD s/p stents, fibromyalgia, depression and hypothyroidism, admitted to [facility] on 05/01/2018 with debility and worsening dysarthria, s/p acute left pontine infarct, for > 3 hrs therapy daily, with a goal of returning back home at or near her prior level of functional independence. MRI brain done on 04/30/18 showed acute left pontine infarct, MRA head report to show left M2 stenosis and MRA neck reported to show right ICA < 50% stenosis. on Dual AP with ASA/Plavix but is allergic to statins. She had a fall about a month ago in the bathroom following which she was diagnosed with left ankle fracture that was treated non-operatively. She had left ankle xray on 05/07/18 which was reported to showing healing nondisplaced fracture of the lateral malleolus. She was then seen by Dr. Whalen (who had treated her initially for her ankle fracture), in the rehab and advised NWB LLE, can begin gentle ROM exercise on ankle but no weight bearing yet, will need another 2 weeks and repeat X ray to confirm continued healing prior to advance weight bearing status. Swallow study done on 05/04/18 reported to show silent aspiration Plan: - Physical therapy for gait and balance - Occupational Therapy for ADLs - Speech therapy for dysarthria and swallow evaluation - Bowel protocol - Analgesics as needed - DVT prophylaxis - Patient found sitting on the floor (05/15/18)- get Xray pelvis and hip - Acute left pontine stroke: on dual AP, Aspirin and Plavix, allergic to statins - Hypothyroidism- on levothyroxine - Depression- on Wellbutrin and Effexor - Chronic hyponatremia- Repeat Na 133, further management per hospitalist recommendations. - Urinary retention- on Flomax, Consult urology - Outpatient sleep study - Vitamin D 2,000 units daily, and and Calcium 500mg daily to provide bone healing. - Fall precautions - Further medical management per hospitalist recommendation.
[2018-05-15 16:15] VITALS: BP 134/94; PULSE 77; RESP 18; O2SAT 96
--- NOTE | 2018-05-15 16:15 | NURSING ---
speech therapy noted pt sitting on floor in front of chair. assisted to bed. pt states she slid out of chair while reaching for remote. denies any pain or injury. no visible injury noted. vitals signs obtained. dr celis notified and order for xray of hip and pelvis. steve community support specialist notified and daughter george notified. per daughter pt does this at home.
--- NOTE | 2018-05-15 16:54 | RAD_ITS ---
STUDY: X-RAY - PELVIS AND BILATERAL HIPS REASON FOR EXAM: Female, 77 years old. Trauma TECHNIQUE: Radiological exam, hip, bilateral, with pelvis when performed; minimum of 5 views COMPARISON: Prior left hip study of 12/19/2016 FINDINGS: There is a non-specific bowel gas pattern. Normal visualized soft tissue structures. Normal bilateral iliac wings, sacroiliac joints and visualized sacrum. Normal bilateral superior and inferior pubic rami. Normal pubic symphysis. Normal bilateral ischial tuberosities. Normal visualized right femoral head. Normal right acetabulum. Normal right hip joint. Normal visualized left femoral head. Normal left acetabulum. Normal left hip joint. There are degenerative changes of the lower lumbar spine. RAD/Hips B/L min 2 views w/ Pelvis IMPRESSION: Degenerative changes of the visualized lower lumbar spine. There is no evidence of fracture or dislocation. Electronically Signed: Tres Chacko MD at 17:17 EST , Service support ,
[2018-05-15] MEDS: Tamsulosin HCl 0.4 MG Capsule 0.8 MG PO (17:35)
[2018-05-15 19:12] VITALS: BP 139/78; PULSE 73; RESP 18; TEMP 36.5; O2SAT 94
[2018-05-15] MEDS: ALPRAZolam 0.25 MG Tablet PO (21:00)
[2018-05-15 22:00] VITALS: RESP 15
[2018-05-16] MEDS: Enoxaparin 40 MG/0.4 ML Syringe SC (05:58)
[2018-05-16] MEDS: Levothyroxine 75 MCG Tablet PO (05:58)
[2018-05-16 07:00] VITALS: BP 136/86; PULSE 82; RESP 20; TEMP 36.6; O2SAT 95
[2018-05-16] MEDS: Aspirin 81 MG TAB.CHEW PO (08:18)
[2018-05-16] MEDS: Senna/Docusate Sodium 1 Tablet 2 TABLET PO ×2 (08:19→21:05)
[2018-05-16] MEDS: Clopidogrel Bisulfate 75 MG Tablet PO (08:19)
[2018-05-16] MEDS: Calcium (Elemental) 500 MG Tablet PO (08:19)
[2018-05-16] MEDS: Venlafaxine XR 150 MG Capsule PO (08:19)
[2018-05-16] MEDS: buPROPion (XL) 150 MG TABLET.XL PO (08:19)
--- NOTE | 2018-05-16 13:22 | PCM.PN.NEU ---
Subjective: No complaints. Tolerating therapies. No GI or complaints. No pain. Sleeping well. - Physical Exam General: Alert, Oriented x3, Cooperative Neurological: Slurred Speech, Unsteady Gait Psych/Mental Status: Normal Affect Vital Signs Temp Pulse Resp BP Pulse Ox 36.6 C 82 20 H 136/86 H 95 05/16/18 07:00 05/16/18 07:00 05/16/18 07:00 05/16/18 07:00 05/16/18 07:00 Oxygen Flow Rate (L/min) 3 Oxygen Delivery Method Room Air Weight: 83.3 kg Body Mass Index (BMI) 30.4 Finger Stick Blood Glucose 100 Intake and Output for Last 24 Hours 05/14/18 05/15/18 05/16/18 23:59 23:59 23:59 Intake Total 600 / 600 720 / 720 240 / 240 Output Total 500 / 500 Balance 600 / 600 220 / 220 240 / 240 Medical Necessity - Tobacco Use Smoking Status: Never smoker Assessment/Plan All Active Problems (Last Reviewed 05/01/18 @ 13:14 by Moises Angelo MD) Slurred speech (Acute) Debility s/p Acute left pontine infarct complicated by history of falls likely due to severe peripheral neuropathy likely idiopathic: Goal of therapy is pentecostal of prior level of functional independence so that she can return home. Plan: - Physical therapy for gait and balance - Occupational Therapy for ADLs - Speech therapy for dysarthria - Aspirin and Plavix - Outpatient sleep study - Permissive hypertension until 05/04/18, then maintain BP less than 130/80 - DVT prophylaxis - Bowel protocol - Flomax started for urine retention => straight cath for 600cc of dark urine patient last voided 8 hrs prior = Increase dose of Flomax to 0.8mg daily - Acute Cystis = start on Macrobid 100mg BID given allergies to Cipro and sulf => resolved - last dose will be at 5pm today. Resolved - Start Vitamin D 2,000 units daily, and and Calcium 500mg daily to provide bone healing. - Cognitive impairment, likely vascular dementia, will continue non-pharmacologic management, to including sleep hygiene
--- NOTE | 2018-05-16 15:14 | PCM.PN.HOSP ---
Subjective: Patient seen and examined. She has no complaints and feels well. She denied any fever chills, cough chest pain, shortness of breath, abdominal pain, any diarrhea or vomiting. Review of systems otherwise negative. Labs and vitals reviewed. She has been tolerating physical therapy well. Vitals/I&O's: Vital Signs Temp Pulse Resp BP Pulse Ox 97.9 F 82 20 H 136/86 H 95 05/16/18 07:00 05/16/18 07:00 05/16/18 07:00 05/16/18 07:00 05/16/18 07:00 Oxygen Flow Rate (L/min) 3 Oxygen Delivery Method Room Air Weight: 183 lb 10.321 oz Body Mass Index (BMI) 30.4 Finger Stick Blood Glucose 100 Intake and Output for Last 24 Hours 05/14/18 05/15/18 05/16/18 23:59 23:59 23:59 Intake Total 600 / 600 720 / 720 240 / 240 Output Total 500 / 500 Balance 600 / 600 220 / 220 240 / 240 General: Alert, Oriented x3, Cooperative, No apparent distress HEENT: Atraumatic, PERRLA, EOMI, Normocephalic Oral: Moist Mucosa Neck: Supple, No JVD, Negative Carotid Bruits Lungs: Clear to auscultation, Normal air movement, No rhonchi, No wheeze, No rales Cardiovascular: Regular rate, Regular Rhythm, Normal S1, Normal S2, No murmurs Abdomen: Bowel Sounds Present, Soft, Non Tender, Non-Distended, No Hepato-splenomegaly Extremities: No clubbing, No cyanosis, No edema, Capillary Refill Less than 3 Seconds, RLE in CAM boot Skin: No rashes, No breakdown Musculoskeletal: No Tenderness to Palpation of Joints or Extremities Lymphatic: No Cervical, Supraclavicular, or Inguinal Adenopathy Neurological: Cranial nerves II-XII grossly intact Psych/Mental Status: Normal Affect, Appropriate, Alert and oriented to time, place, person, mood and affect Current Medications Acetaminophen (Tylenol) 650 mg PO Q6H PRN PRN PRN Reason: Mild Pain (0-3/10)/Headache Last Admin: 05/08/18 17:30 Dose: 650 mg Alprazolam (Xanax) 0.25 mg PO QHS [facility] Last Admin: 05/15/18 21:00 Dose: 0.25 mg Aspirin (Aspirin, Baby) 81 mg PO DAILY@0800 [facility] Last Admin: 05/16/18 08:18 Dose: 81 mg Bisacodyl (Dulcolax) 10 mg RECTAL .PRN X 1 PRN PRN Reason: Constipation Last Admin: 05/07/18 04:05 Dose: 10 mg Bupropion HCl (Wellbutrin Xl) 150 mg PO DAILY [facility] Last Admin: 05/16/18 08:19 Dose: 150 mg Calcium Carbonate (Os-Tr 500) 500 mg PO DAILY@0800 [facility] Last Admin: 05/16/18 08:19 Dose: 500 mg Cholecalciferol (Vitamin D) 2,000 unit PO DAILY [facility] Last Admin: 05/16/18 08:19 Dose: 2,000 unit Clopidogrel Bisulfate (Plavix) 75 mg PO DAILY [facility] Last Admin: 05/16/18 08:19 Dose: 75 mg Enoxaparin Sodium (Lovenox) 40 mg SC DAILY@0600 [facility] Last Admin: 05/16/18 05:58 Dose: 40 mg Levothyroxine Sodium (Synthroid) 75 mcg PO DAILY@0600 [facility] Last Admin: 05/16/18 05:58 Dose: 75 mcg Magnesium Hydroxide (Milk Of Magnesia) 30 ml PO .PRN X 1 PRN PRN Reason: Constipation Last Admin: 05/11/18 05:58 Dose: 30 ml Ondansetron HCl (Zofran Odt) 4 mg PO Q8H PRN PRN PRN Reason: NAUSEA/VOMITING Last Admin: 05/11/18 20:25 Dose: 4 mg Potassium Chloride ([facility]) [facility] Last Admin: 05/16/18 08:18 Dose: 40 meq Senna/Docusate Sodium (Senokot-S, Yessy-Colace) 2 tablet PO BID [facility] Last Admin: 05/16/18 08:19 Dose: 2 tablet Tamsulosin HCl (Flomax) 0.8 mg PO DAILY@1730 [facility] Last Admin: 05/15/18 17:35 Dose: 0.8 mg Venlafaxine HCl (Effexor Xr) 150 mg PO DAILY [facility] Last Admin: 05/16/18 08:19 Dose: 150 mg Medical Necessity - Tobacco Use Smoking Status: Never smoker Assessment/Plan All Active Problems (Last Reviewed 05/01/18 @ 13:14 by Moises Angelo MD) Slurred speech (Acute) 77 year old F past medical history of hypertension, hyperlipidemia, hypothyroidism, depression/anxiety admitted to inpatient rehab with debility after an acute left pontine infarct. 1:LEft pontine infact: Stable. On aspirin and Plavix. Not on statin on account of allergy to statins. Intensive physical therapy as per PT/OT recommendations. 2. Chronic Hyponatremia Sodium level went down to 129 she was hydrated with IV fluids. Sodium now back up to 133 which is around the range of her baseline. Will monitor 3. Debility due to left pontine infarct: as under 1. 4. Hypertension: Fairly controlled. On any medications. Will monitor. 5. Hyperlipidemia: Diet controlled. Not on statins. 6. Hypothyroidism: On Synthroid 7. Depression and anxiety: on bupropion and effexor. 8. Mild cognitive impairment: likely due to vascular dementia. Stable. DVT prophylaxis: lovenox Code Visit Inpatient E&M: 71652 Subs Hosp L2
--- NOTE | 2018-05-16 15:17 | PN_ITS ---
Subjective: Patient seen and examined. She has no complaints and feels well. She denied any fever chills, cough chest pain, shortness of breath, abdominal pain, any diarrhea or vomiting. Review of systems otherwise negative. Labs and vitals reviewed. She has been tolerating physical therapy well. Vitals/I&O's: Vital Signs Temp Pulse Resp BP Pulse Ox 97.9 F 82 20 H 136/86 H 95 05/16/18 07:00 05/16/18 07:00 05/16/18 07:00 05/16/18 07:00 05/16/18 07:00 Oxygen Flow Rate (L/min) 3 Oxygen Delivery Method Room Air Weight: 183 lb 10.321 oz Body Mass Index (BMI) 30.4 Finger Stick Blood Glucose 100 Intake and Output for Last 24 Hours 05/14/18 05/15/18 05/16/18 23:59 23:59 23:59 Intake Total 600 / 600 720 / 720 240 / 240 Output Total 500 / 500 Balance 600 / 600 220 / 220 240 / 240 General: Alert, Oriented x3, Cooperative, No apparent distress HEENT: Atraumatic, PERRLA, EOMI, Normocephalic Oral: Moist Mucosa Neck: Supple, No JVD, Negative Carotid Bruits Lungs: Clear to auscultation, Normal air movement, No rhonchi, No wheeze, No rales Cardiovascular: Regular rate, Regular Rhythm, Normal S1, Normal S2, No murmurs Abdomen: Bowel Sounds Present, Soft, Non Tender, Non-Distended, No Hepato- splenomegaly Extremities: No clubbing, No cyanosis, No edema, Capillary Refill Less than 3 Seconds, RLE in CAM boot Skin: No rashes, No breakdown Musculoskeletal: No Tenderness to Palpation of Joints or Extremities Lymphatic: No Cervical, Supraclavicular, or Inguinal Adenopathy Neurological: Cranial nerves II-XII grossly intact Psych/Mental Status: Normal Affect, Appropriate, Alert and oriented to time, place, person, mood and affect Current Medications Acetaminophen (Tylenol) 650 mg PO Q6H PRN PRN PRN Reason: Mild Pain (0-3/10)/Headache Last Admin: 05/08/18 17:30 Dose: 650 mg Alprazolam (Xanax) 0.25 mg PO QHS [facility] Last Admin: 05/15/18 21:00 Dose: 0.25 mg Aspirin (Aspirin, Baby) 81 mg PO DAILY@0800 [facility] Last Admin: 05/16/18 08:18 Dose: 81 mg Bisacodyl (Dulcolax) 10 mg RECTAL .PRN X 1 PRN PRN Reason: Constipation Last Admin: 05/07/18 04:05 Dose: 10 mg Bupropion HCl (Wellbutrin Xl) 150 mg PO DAILY [facility] Last Admin: 05/16/18 08:19 Dose: 150 mg Calcium Carbonate (Os-Tr 500) 500 mg PO DAILY@0800 [facility] Last Admin: 05/16/18 08:19 Dose: 500 mg Cholecalciferol (Vitamin D) 2,000 unit PO DAILY [facility] Last Admin: 05/16/18 08:19 Dose: 2,000 unit Clopidogrel Bisulfate (Plavix) 75 mg PO DAILY [facility] Last Admin: 05/16/18 08:19 Dose: 75 mg Enoxaparin Sodium (Lovenox) 40 mg SC DAILY@0600 [facility] Last Admin: 05/16/18 05:58 Dose: 40 mg Levothyroxine Sodium (Synthroid) 75 mcg PO DAILY@0600 [facility] Last Admin: 05/16/18 05:58 Dose: 75 mcg Magnesium Hydroxide (Milk Of Magnesia) 30 ml PO .PRN X 1 PRN PRN Reason: Constipation Last Admin: 05/11/18 05:58 Dose: 30 ml Ondansetron HCl (Zofran Odt) 4 mg PO Q8H PRN PRN PRN Reason: NAUSEA/VOMITING Last Admin: 05/11/18 20:25 Dose: 4 mg [facility] ([facility] Last Admin: 05/16/18 08:18 Dose: 40 meq Senna/Docusate Sodium (Senokot-S, Yessy-Colace) 2 tablet PO BID [facility] Last Admin: 05/16/18 08:19 Dose: 2 tablet Tamsulosin HCl (Flomax) 0.8 mg PO DAILY@1730 [facility] Last Admin: 05/15/18 17:35 Dose: 0.8 mg Venlafaxine HCl (Effexor Xr) 150 mg PO DAILY [facility] Last Admin: 05/16/18 08:19 Dose: 150 mg Medical Necessity - Tobacco Use Smoking Status: Never smoker Assessment/Plan All Active Problems (Last Reviewed 05/01/18 @ 13:14 by Moises Angelo MD) Slurred speech (Acute) 77 year old F past medical history of hypertension, hyperlipidemia, hypothyroidism, depression/anxiety admitted to inpatient rehab with debility after an acute left pontine infarct. 1:LEft pontine infact: * Stable. * On aspirin and Plavix. * Not on statin on account of allergy to statins. * Intensive physical therapy as per PT/OT recommendations. * 2. Chronic Hyponatremia * Sodium level went down to 129 she was hydrated with IV fluids. * Sodium now back up to 133 which is around the range of her baseline. * Will monitor 3. Debility due to left pontine infarct: as under 1. 4. Hypertension: Fairly controlled. On any medications. Will monitor. 5. Hyperlipidemia: Diet controlled. Not on statins. 6. Hypothyroidism: On Synthroid 7. Depression and anxiety: on bupropion and effexor. 8. Mild cognitive impairment: likely due to vascular dementia. Stable. DVT prophylaxis: lovenox Code Visit Inpatient E&M: 33251 Subs Hosp L2
[2018-05-16 15:50] VITALS: BMI 30.4
[2018-05-16] MEDS: Tamsulosin HCl 0.4 MG Capsule 0.8 MG PO (16:55)
[2018-05-16] MEDS: ALPRAZolam 0.25 MG Tablet PO (21:06)
[2018-05-16 22:00] VITALS: BP 132/77; PULSE 76; RESP 18; TEMP 36.7; O2SAT 97
[2018-05-17 00:43] VITALS: BMI 30.4
--- NOTE | 2018-05-17 01:51 | NURSING ---
Reviewed and agree with LPNs fims and handoff
[2018-05-17] MEDS: Enoxaparin 40 MG/0.4 ML Syringe SC (06:55)
[2018-05-17] MEDS: Levothyroxine 75 MCG Tablet PO (06:55)
[2018-05-17 07:10] VITALS: BP 142/89; PULSE 95; RESP 16; TEMP 36.6; O2SAT 96
[2018-05-17] MEDS: Calcium (Elemental) 500 MG Tablet PO (07:50)
[2018-05-17] MEDS: buPROPion (XL) 150 MG TABLET.XL PO (07:50)
[2018-05-17] MEDS: Clopidogrel Bisulfate 75 MG Tablet PO (07:51)
[2018-05-17] MEDS: Aspirin 81 MG TAB.CHEW PO (07:51)
[2018-05-17] MEDS: Venlafaxine XR 150 MG Capsule PO (07:51)
[2018-05-17 09:22] VITALS: BMI 30.4
[2018-05-17] MEDS: Tamsulosin HCl 0.4 MG Capsule 0.8 MG PO (17:06)
[2018-05-17] MEDS: Senna/Docusate Sodium 1 Tablet 2 TABLET PO (20:51)
[2018-05-17] MEDS: ALPRAZolam 0.25 MG Tablet PO (20:51)
[2018-05-17 21:01] VITALS: BP 148/97; PULSE 84; RESP 20; TEMP 36.4; O2SAT 93
[2018-05-17 22:23] VITALS: BMI 30.4
--- NOTE | 2018-05-17 23:25 | NURSING ---
Reviewed and agree with LPNs fims and handoff
[2018-05-18] MEDS: Levothyroxine 75 MCG Tablet PO (06:43)
[2018-05-18] MEDS: Enoxaparin 40 MG/0.4 ML Syringe SC (06:43)
[2018-05-18 07:54] VITALS: BP 136/69; PULSE 77; RESP 16; TEMP 36.6; O2SAT 91
[2018-05-18] MEDS: Calcium (Elemental) 500 MG Tablet PO (08:20)
[2018-05-18] MEDS: Aspirin 81 MG TAB.CHEW PO (08:20)
[2018-05-18] MEDS: Clopidogrel Bisulfate 75 MG Tablet PO (08:21)
[2018-05-18] MEDS: Senna/Docusate Sodium 1 Tablet 2 TABLET PO ×2 (08:21→22:17)
[2018-05-18] MEDS: Venlafaxine XR 150 MG Capsule PO (08:21)
[2018-05-18] MEDS: buPROPion (XL) 150 MG TABLET.XL PO (08:31)
--- NOTE | 2018-05-18 13:08 | EKGRS_ITS ---
Test Reason : PALPS Blood Pressure : / mmHG Vent. Rate : 075 BPM Atrial Rate : 075 BPM P-R Int : 186 ms QRS Dur : 146 ms QT Int : 378 ms P-R-T Axes : 053 -01 -04 degrees QTc Int : 422 ms Normal sinus rhythm Right bundle branch block Abnormal ECG When compared with ECG of 29-APR-2018 14:13, No significant change was found Confirmed by HUYEN ROSARIO, DOMINGA ([id number]), video effects editor RONNIE CAVAZOS ([id number]) on 05/20/2018 11:39:59 AM Referred By: Moises Angelo Confirmed By:DOMINGA MATSON MD
[2018-05-18 13:29] VITALS: BMI 30.4
--- NOTE | 2018-05-18 13:53 | PCM.PN.HOSP ---
Subjective: Patient seen and examined. She complains of tingling of her RUE, which is not new and is recurrent. She also had palpitations today, but symptoms have now resolved. She was eating a regular meal with speech therapy to assess her swallowing capability. Labs and vitals reviewed. Vitals/I&O's: Vital Signs Temp Pulse Resp BP Pulse Ox 97.9 F 77 16 136/69 H 91 05/18/18 07:54 05/18/18 07:54 05/18/18 07:54 05/18/18 07:54 05/18/18 07:54 Oxygen Flow Rate (L/min) 3 Oxygen Delivery Method Room Air Weight: 183 lb 10.321 oz Body Mass Index (BMI) 30.4 Finger Stick Blood Glucose 100 Intake and Output for Last 24 Hours 05/16/18 05/17/18 05/18/18 23:59 23:59 23:59 Intake Total 240 / 240 120 / 120 360 / 360 Output Total 800 / 800 575 / 575 Balance 240 / 240 -680 / -680 -215 / -215 General: Alert, Oriented x3, Cooperative, No apparent distress HEENT: Atraumatic, PERRLA, EOMI, Normocephalic Oral: Moist Mucosa Neck: Supple, No JVD, Negative Carotid Bruits Lungs: Clear to auscultation, Normal air movement, No rhonchi, No wheeze Cardiovascular: Regular rate, Regular Rhythm, Normal S1, Normal S2, No murmurs Abdomen: Bowel Sounds Present, Soft, Non Tender, Non-Distended, No Hepato-splenomegaly Extremities: No clubbing, No cyanosis, No edema, Capillary Refill Less than 3 Seconds, - - RLE in boot. Skin: No rashes, No breakdown Musculoskeletal: No Tenderness to Palpation of Joints or Extremities Lymphatic: No Cervical, Supraclavicular, or Inguinal Adenopathy Neurological: Cranial nerves II-XII grossly intact Psych/Mental Status: Normal Affect, Appropriate, Alert and oriented to time, place, person, mood and affect Current Medications Acetaminophen (Tylenol) 650 mg PO Q6H PRN PRN PRN Reason: Mild Pain (0-3/10)/Headache Last Admin: 05/08/18 17:30 Dose: 650 mg Alprazolam (Xanax) 0.25 mg PO QHS [facility] Last Admin: 05/17/18 20:51 Dose: 0.25 mg Aspirin (Aspirin, Baby) 81 mg PO DAILY@0800 [facility] Last Admin: 05/18/18 08:20 Dose: 81 mg Bisacodyl (Dulcolax) 10 mg RECTAL .PRN X 1 PRN PRN Reason: Constipation Last Admin: 05/07/18 04:05 Dose: 10 mg Bupropion HCl (Wellbutrin Xl) 150 mg PO DAILY [facility] Last Admin: 05/18/18 08:31 Dose: 150 mg Calcium Carbonate (Os-Tr 500) 500 mg PO DAILY@0800 [facility] Last Admin: 05/18/18 08:20 Dose: 500 mg Cholecalciferol (Vitamin D) 2,000 unit PO DAILY [facility] Last Admin: 05/18/18 08:21 Dose: 2,000 unit Clopidogrel Bisulfate (Plavix) 75 mg PO DAILY [facility] Last Admin: 05/18/18 08:21 Dose: 75 mg Enoxaparin Sodium (Lovenox) 40 mg SC DAILY@0600 [facility] Last Admin: 05/18/18 06:43 Dose: 40 mg Levothyroxine Sodium (Synthroid) 75 mcg PO DAILY@0600 [facility] Last Admin: 05/18/18 06:43 Dose: 75 mcg Magnesium Hydroxide (Milk Of Magnesia) 30 ml PO .PRN X 1 PRN PRN Reason: Constipation Last Admin: 05/11/18 05:58 Dose: 30 ml Ondansetron HCl (Zofran Odt) 4 mg PO Q8H PRN PRN PRN Reason: NAUSEA/VOMITING Last Admin: 05/11/18 20:25 Dose: 4 mg Potassium Chloride ([facility]) [facility] Last Admin: 05/18/18 08:20 Dose: 40 meq Senna/Docusate Sodium (Senokot-S, Yessy-Colace) 2 tablet PO BID [facility] Last Admin: 05/18/18 08:21 Dose: 2 tablet Tamsulosin HCl (Flomax) 0.8 mg PO DAILY@1730 [facility] Last Admin: 05/17/18 17:06 Dose: 0.8 mg Venlafaxine HCl (Effexor Xr) 150 mg PO DAILY [facility] Last Admin: 05/18/18 08:21 Dose: 150 mg Medical Necessity - Tobacco Use Smoking Status: Never smoker Assessment/Plan All Active Problems (Last Reviewed 05/01/18 @ 13:14 by Moises Angelo MD) Slurred speech (Acute) 77 year old F past medical history of hypertension, hyperlipidemia, hypothyroidism, depression/anxiety admitted to inpatient rehab with debility after an acute left pontine infarct. 1:LEft pontine infact: Stable. On aspirin and Plavix. Not on statin on account of allergy to statins. Intensive physical therapy as per PT/OT recommendations. 2. Palpitations: says she had palpitations today, but had resolved at time of review. NO telemetry in Rehab unit will get baseline EKG; told to inform nurses immediately she had palpitations again so EKG could be done. To monitor vitals more frequently, i.e. every 2 hours. over the next 24 hours. 3. Paresthesia of TONA had resolved at time of review. Says she has had similar occurences in the past currently stable. Neurology on board; to review and decide on further management as needed 4. Chronic Hyponatremia stable Will monitor 5. Debility due to left pontine infarct: as under 1. 6. Hypertension: Fairly controlled; well controlled for age. Not on any medications. Will monitor. 7. Hyperlipidemia: Diet controlled. Not on statins. 8. Hypothyroidism: On Synthroid 9. Depression and anxiety: on bupropion and effexor. 10. Mild cognitive impairment: likely due to vascular dementia. Stable. DVT prophylaxis: lovenox Code Visit Inpatient E&M: 91537 Subs Hosp L2
--- NOTE | 2018-05-18 13:59 | PN_ITS ---
Subjective: Patient seen and examined. She complains of tingling of her RUE, which is not new and is recurrent. She also had palpitations today, but symptoms have now resolved. She was eating a regular meal with speech therapy to assess her swallowing capability. Labs and vitals reviewed. Vitals/I&O's: Vital Signs Temp Pulse Resp BP Pulse Ox 97.9 F 77 16 136/69 H 91 05/18/18 07:54 05/18/18 07:54 05/18/18 07:54 05/18/18 07:54 05/18/18 07:54 Oxygen Flow Rate (L/min) 3 Oxygen Delivery Method Room Air Weight: 183 lb 10.321 oz Body Mass Index (BMI) 30.4 Finger Stick Blood Glucose 100 Intake and Output for Last 24 Hours 05/16/18 05/17/18 05/18/18 23:59 23:59 23:59 Intake Total 240 / 240 120 / 120 360 / 360 Output Total 800 / 800 575 / 575 Balance 240 / 240 -680 / -680 -215 / -215 General: Alert, Oriented x3, Cooperative, No apparent distress HEENT: Atraumatic, PERRLA, EOMI, Normocephalic Oral: Moist Mucosa Neck: Supple, No JVD, Negative Carotid Bruits Lungs: Clear to auscultation, Normal air movement, No rhonchi, No wheeze Cardiovascular: Regular rate, Regular Rhythm, Normal S1, Normal S2, No murmurs Abdomen: Bowel Sounds Present, Soft, Non Tender, Non-Distended, No Hepato- splenomegaly Extremities: No clubbing, No cyanosis, No edema, Capillary Refill Less than 3 Seconds, - - RLE in boot. Skin: No rashes, No breakdown Musculoskeletal: No Tenderness to Palpation of Joints or Extremities Lymphatic: No Cervical, Supraclavicular, or Inguinal Adenopathy Neurological: Cranial nerves II-XII grossly intact Psych/Mental Status: Normal Affect, Appropriate, Alert and oriented to time, place, person, mood and affect Current Medications Acetaminophen (Tylenol) 650 mg PO Q6H PRN PRN PRN Reason: Mild Pain (0-3/10)/Headache Last Admin: 05/08/18 17:30 Dose: 650 mg Alprazolam (Xanax) 0.25 mg PO QHS [facility] Last Admin: 05/17/18 20:51 Dose: 0.25 mg Aspirin (Aspirin, Baby) 81 mg PO DAILY@0800 [facility] Last Admin: 05/18/18 08:20 Dose: 81 mg Bisacodyl (Dulcolax) 10 mg RECTAL .PRN X 1 PRN PRN Reason: Constipation Last Admin: 05/07/18 04:05 Dose: 10 mg Bupropion HCl (Wellbutrin Xl) 150 mg PO DAILY [facility] Last Admin: 05/18/18 08:31 Dose: 150 mg Calcium Carbonate (Os-Tr 500) 500 mg PO DAILY@0800 [facility] Last Admin: 05/18/18 08:20 Dose: 500 mg Cholecalciferol (Vitamin D) 2,000 unit PO DAILY [facility] Last Admin: 05/18/18 08:21 Dose: 2,000 unit Clopidogrel Bisulfate (Plavix) 75 mg PO DAILY [facility] Last Admin: 05/18/18 08:21 Dose: 75 mg Enoxaparin Sodium (Lovenox) 40 mg SC DAILY@0600 [facility] Last Admin: 05/18/18 06:43 Dose: 40 mg Levothyroxine Sodium (Synthroid) 75 mcg PO DAILY@0600 [facility] Last Admin: 05/18/18 06:43 Dose: 75 mcg Magnesium Hydroxide (Milk Of Magnesia) 30 ml PO .PRN X 1 PRN PRN Reason: Constipation Last Admin: 05/11/18 05:58 Dose: 30 ml Ondansetron HCl (Zofran Odt) 4 mg PO Q8H PRN PRN PRN Reason: NAUSEA/VOMITING Last Admin: 05/11/18 20:25 Dose: 4 mg Potassium Chlor[facility] ([facility]) [facility] Last Admin: 05/18/18 08:20 Dose: 40 meq Senna/Docusate Sodium (Senokot-S, Yessy-Colace) 2 tablet PO BID [facility] Last Admin: 05/18/18 08:21 Dose: 2 tablet Tamsulosin HCl (Flomax) 0.8 mg PO DAILY@1730 [facility] Last Admin: 05/17/18 17:06 Dose: 0.8 mg Venlafaxine HCl (Effexor Xr) 150 mg PO DAILY [facility] Last Admin: 05/18/18 08:21 Dose: 150 mg Medical Necessity - Tobacco Use Smoking Status: Never smoker Assessment/Plan All Active Problems (Last Reviewed 05/01/18 @ 13:14 by Moises Angelo MD) Slurred speech (Acute) 77 year old F past medical history of hypertension, hyperlipidemia, hypothyroidism, depression/anxiety admitted to inpatient rehab with debility after an acute left pontine infarct. 1:LEft pontine infact: * Stable. * On aspirin and Plavix. * Not on statin on account of allergy to statins. * Intensive physical therapy as per PT/OT recommendations. * 2. Palpitations: * says she had palpitations today, but had resolved at time of review. * NO telemetry in Rehab unit * will get baseline EKG; told to inform nurses immediately she had palpitations again so EKG could be done. * To monitor vitals more frequently, i.e. every 2 hours. over the next 24 hours. * 3. Paresthesia of TONA * had resolved at time of review. Says she has had similar occurences in the past * currently stable. Neurology on board; to review and decide on further management as needed * 4. Chronic Hyponatremia * stable * Will monitor 5. Debility due to left pontine infarct: as under 1. 6. Hypertension: Fairly controlled; well controlled for age. Not on any medications. Will monitor. 7. Hyperlipidemia: Diet controlled. Not on statins. 8. Hypothyroidism: On Synthroid 9. Depression and anxiety: on bupropion and effexor. 10. Mild cognitive impairment: likely due to vascular dementia. Stable. DVT prophylaxis: lovenox Code Visit Inpatient E&M: 94813 Subs Hosp L2
--- NOTE | 2018-05-18 16:12 | CHAPLAIN ---
Type of Pastoral Visit ___ Initial Visit _x__ Follow-up Visit ___ On-call Visit ___ General Patient Visit ___ Spiritual Assessment ___ Family Conference ___ Bereavement ___ Rapid Response ___ Code Blue ___ Other (describe below) Pastoral Care Referral From _x__ Patient ___ Family ___ Nurse ___ Physician ___ Fiber Optic Assembly Worker ___ Field Mechanic ___ Other (describe below) Sacrament/Intervention _x__ Active listening ___ Anointing ___ Catholic ___ Bereavement ___ Communion ___ Therese exploration ___ ___ Life review _x__ Prayer ___ Reconciliation ___ Sacrament of Sick _x__ Supportive presence ___ Wedding ___ Other (describe below) Pastoral Comments patient became tearful when this blanchard grinder operator mentioned that God has not forgotten you; pt said I needed to hear that; pt shares ongoing concern about her husbands health; pt hopes to be able to go home and be with again;
[2018-05-18] MEDS: Tamsulosin HCl 0.4 MG Capsule 0.8 MG PO (16:35)
[2018-05-18 19:30] VITALS: BP 149/76; PULSE 78; RESP 18; TEMP 36.8; O2SAT 92
[2018-05-18 21:50] VITALS: PULSE 78; RESP 18; O2SAT 92; BMI 30.4
[2018-05-18 22:00] VITALS: BMI 30.4
[2018-05-18] MEDS: ALPRAZolam 0.25 MG Tablet PO (22:18)
--- NOTE | 2018-05-19 04:50 | NURSING ---
Reviewed and agree with [employer] documentation and [facility] charting.
[2018-05-19] MEDS: Levothyroxine 75 MCG Tablet PO (05:25)
[2018-05-19] MEDS: Enoxaparin 40 MG/0.4 ML Syringe SC (05:25)
[2018-05-19 07:02] VITALS: BP 143/90; PULSE 81; RESP 18; TEMP 36.6; O2SAT 93
[2018-05-19] MEDS: Aspirin 81 MG TAB.CHEW PO (08:05)
[2018-05-19] MEDS: Calcium (Elemental) 500 MG Tablet PO (08:05)
[2018-05-19] MEDS: buPROPion (XL) 150 MG TABLET.XL PO (08:05)
[2018-05-19] MEDS: Senna/Docusate Sodium 1 Tablet 2 TABLET PO ×2 (08:05→20:00)
[2018-05-19] MEDS: Clopidogrel Bisulfate 75 MG Tablet PO (08:05)
[2018-05-19] MEDS: Venlafaxine XR 150 MG Capsule PO (08:05)
[2018-05-19 13:23] VITALS: BMI 30.4
--- NOTE | 2018-05-19 15:51 | PCM.PN.HOSP ---
Patient Problems: Active and Suspected Problems (Last Reviewed 05/01/18 @ 13:14 by Moises Agnelo MD) CVA (cerebral vascular accident) (Acute) MRI demonstrated an acute infarct in the right thalamus and left parietal region. 01/2017 Subjective: feeling well, but tired. Vitals/I&O's: Vital Signs Temp Pulse Resp BP Pulse Ox 36.6 C 81 18 143/90 H 93 05/19/18 07:02 05/19/18 07:02 05/19/18 07:02 05/19/18 07:02 05/19/18 07:02 Oxygen Flow Rate (L/min) 3 Oxygen Delivery Method Room Air Weight: 83.3 kg Body Mass Index (BMI) 30.4 Finger Stick Blood Glucose 100 Intake and Output for Last 24 Hours 05/17/18 05/18/18 05/19/18 23:59 23:59 23:59 Intake Total 120 / 120 580 / 580 120 / 120 Output Total 800 / 800 575 / 575 Balance -680 / -680 5 / 5 120 / 120 General: Alert, No apparent distress HEENT: Atraumatic, Normocephalic, - - left facial droop Oral: Moist Mucosa, No Gingival or Mucosal Lesions/ Ulcerations Neck: No Nodes, Thyroid Normal Size and Texture Lungs: Clear to auscultation, Normal air movement, No rhonchi, No wheeze Cardiovascular: Regular rate, Regular Rhythm, Normal S1, Normal S2, No murmurs Abdomen: Bowel Sounds Present, Soft, Non Tender, Non-Distended, No Hepato-splenomegaly Extremities: No edema, No Calf Tenderness Current Medications Acetaminophen (Tylenol) 650 mg PO Q6H PRN PRN PRN Reason: Mild Pain (0-3/10)/Headache Last Admin: 05/08/18 17:30 Dose: 650 mg Alprazolam (Xanax) 0.25 mg PO QHS [facility] Last Admin: 05/18/18 22:18 Dose: 0.25 mg Aspirin (Aspirin, Baby) 81 mg PO DAILY@0800 [facility] Last Admin: 05/19/18 08:05 Dose: 81 mg Bisacodyl (Dulcolax) 10 mg RECTAL .PRN X 1 PRN PRN Reason: Constipation Last Admin: 05/07/18 04:05 Dose: 10 mg Bupropion HCl (Wellbutrin Xl) 150 mg PO DAILY [facility] Last Admin: 05/19/18 08:05 Dose: 150 mg Calcium Carbonate (Os-Tr 500) 500 mg PO DAILY@0800 [facility] Last Admin: 05/19/18 08:05 Dose: 500 mg Cholecalciferol (Vitamin D) 2,000 unit PO DAILY [facility] Last Admin: 05/19/18 08:05 Dose: 2,000 unit Clopidogrel Bisulfate (Plavix) 75 mg PO DAILY [facility] Last Admin: 05/19/18 08:05 Dose: 75 mg Enoxaparin Sodium (Lovenox) 40 mg SC DAILY@0600 [facility] Last Admin: 05/19/18 05:25 Dose: 40 mg Levothyroxine Sodium (Synthroid) 75 mcg PO DAILY@0600 [facility] Last Admin: 05/19/18 05:25 Dose: 75 mcg Magnesium Hydroxide (Milk Of Magnesia) 30 ml PO .PRN X 1 PRN PRN Reason: Constipation Last Admin: 05/11/18 05:58 Dose: 30 ml Ondansetron HCl (Zofran Odt) 4 mg PO Q8H PRN PRN PRN Reason: NAUSEA/VOMITING Last Admin: 05/11/18 20:25 Dose: 4 mg Potassium Chloride (K-Dur) [facility] Last Admin: 05/19/18 08:05 Dose: 40 meq Senna/Docusate Sodium (Senokot-S, Yessy-Colace) 2 tablet PO BID [facility] Last Admin: 05/19/18 08:05 Dose: 2 tablet Tamsulosin HCl (Flomax) 0.8 mg PO DAILY@1730 [facility] Last Admin: 05/18/18 16:35 Dose: 0.8 mg Venlafaxine HCl (Effexor Xr) 150 mg PO DAILY [facility] Last Admin: 05/19/18 08:05 Dose: 150 mg Medical Necessity - Tobacco Use Smoking Status: Never smoker Assessment/Plan All Active Problems (Last Reviewed 05/01/18 @ 13:14 by Moises Angelo MD) CVA (cerebral vascular accident) (Acute) 1. CVA on ASA and Plavix statin allergy BP control 2. hyponatremia chronic maybe SIADH TSH has been normal 3. DVT proph: LMWH. Code Visit Inpatient E&M: 98544 Subs Hosp L2
--- NOTE | 2018-05-19 15:57 | PN_ITS ---
Patient Problems: Active and Suspected Problems (Last Reviewed 05/01/18 @ 13:14 by Moises Angelo MD) CVA (cerebral vascular accident) (Acute) MRI demonstrated an acute infarct in the right thalamus and left parietal region. 01/2017 Subjective: feeling well, but tired. Vitals/I&O's: Vital Signs Temp Pulse Resp BP Pulse Ox 36.6 C 81 18 143/90 H 93 05/19/18 07:02 05/19/18 07:02 05/19/18 07:02 05/19/18 07:02 05/19/18 07:02 Oxygen Flow Rate (L/min) 3 Oxygen Delivery Method Room Air Weight: 83.3 kg Body Mass Index (BMI) 30.4 Finger Stick Blood Glucose 100 Intake and Output for Last 24 Hours 05/17/18 05/18/18 05/19/18 23:59 23:59 23:59 Intake Total 120 / 120 580 / 580 120 / 120 Output Total 800 / 800 575 / 575 Balance -680 / -680 5 / 5 120 / 120 General: Alert, No apparent distress HEENT: Atraumatic, Normocephalic, - - left facial droop Oral: Moist Mucosa, No Gingival or Mucosal Lesions/ Ulcerations Neck: No Nodes, Thyroid Normal Size and Texture Lungs: Clear to auscultation, Normal air movement, No rhonchi, No wheeze Cardiovascular: Regular rate, Regular Rhythm, Normal S1, Normal S2, No murmurs Abdomen: Bowel Sounds Present, Soft, Non Tender, Non-Distended, No Hepato- splenomegaly Extremities: No edema, No Calf Tenderness Current Medications Acetaminophen (Tylenol) 650 mg PO Q6H PRN PRN PRN Reason: Mild Pain (0-3/10)/Headache Last Admin: 05/08/18 17:30 Dose: 650 mg Alprazolam (Xanax) 0.25 mg PO QHS [facility] Last Admin: 05/18/18 22:18 Dose: 0.25 mg Aspirin (Aspirin, Baby) 81 mg PO DAILY@0800 [facility] Last Admin: 05/19/18 08:05 Dose: 81 mg Bisacodyl (Dulcolax) 10 mg RECTAL .PRN X 1 PRN PRN Reason: Constipation Last Admin: 05/07/18 04:05 Dose: 10 mg Bupropion HCl (Wellbutrin Xl) 150 mg PO DAILY [facility] Last Admin: 05/19/18 08:05 Dose: 150 mg Calcium Carbonate (Os-Tr 500) 500 mg PO DAILY@0800 [facility] Last Admin: 05/19/18 08:05 Dose: 500 mg Cholecalciferol (Vitamin D) 2,000 unit PO DAILY [facility] Last Admin: 05/19/18 08:05 Dose: 2,000 unit Clopidogrel Bisulfate (Plavix) 75 mg PO DAILY [facility] Last Admin: 05/19/18 08:05 Dose: 75 mg Enoxaparin Sodium (Lovenox) 40 mg SC DAILY@0600 [facility] Last Admin: 05/19/18 05:25 Dose: 40 mg Levothyroxine Sodium (Synthroid) 75 mcg PO DAILY@0600 [facility] Last Admin: 05/19/18 05:25 Dose: 75 mcg Magnesium Hydroxide (Milk Of Magnesia) 30 ml PO .PRN X 1 PRN PRN Reason: Constipation Last Admin: 05/11/18 05:58 Dose: 30 ml Ondansetron HCl (Zofran Odt) 4 mg PO Q8H PRN PRN PRN Reason: NAUSEA/VOMITING Last Admin: 05/11/18 20:25 Dose: 4 mg [facility]assium [facility] ([facility]) [facility] Last Admin: 05/19/18 08:05 Dose: 40 meq Senna/Docusate Sodium (Senokot-S, Yessy-Colace) 2 tablet PO BID [facility] Last Admin: 05/19/18 08:05 Dose: 2 tablet Tamsulosin HCl (Flomax) 0.8 mg PO DAILY@1730 [facility] Last Admin: 05/18/18 16:35 Dose: 0.8 mg Venlafaxine HCl (Effexor Xr) 150 mg PO DAILY [facility] Last Admin: 05/19/18 08:05 Dose: 150 mg Medical Necessity - Tobacco Use Smoking Status: Never smoker Assessment/Plan All Active Problems (Last Reviewed 05/01/18 @ 13:14 by Moises Angelo MD) CVA (cerebral vascular accident) (Acute) 1. CVA * on ASA and Plavix * statin allergy * BP control 2. hyponatremia * chronic * maybe SIADH * TSH has been normal 3. DVT proph: LMWH. Code Visit Inpatient E&M: 38818 Subs Hosp L2
[2018-05-19] MEDS: Tamsulosin HCl 0.4 MG Capsule 0.8 MG PO (16:16)
[2018-05-19 19:30] VITALS: BP 158/87; PULSE 75; RESP 18; TEMP 36.6; O2SAT 93; BMI 30.4
[2018-05-19] MEDS: ALPRAZolam 0.25 MG Tablet PO (20:00)
[2018-05-20] MEDS: Levothyroxine 75 MCG Tablet PO (06:13)
[2018-05-20] MEDS: Enoxaparin 40 MG/0.4 ML Syringe SC (06:14)
[2018-05-20] MEDS: Magnesium Hydroxide 30 ML UDC PO (06:14)
[2018-05-20] MEDS: Aspirin 81 MG TAB.CHEW PO (07:51)
[2018-05-20] MEDS: Senna/Docusate Sodium 1 Tablet 2 TABLET PO ×2 (07:52→20:35)
[2018-05-20] MEDS: Clopidogrel Bisulfate 75 MG Tablet PO (07:52)
[2018-05-20] MEDS: buPROPion (XL) 150 MG TABLET.XL PO (07:52)
[2018-05-20] MEDS: Venlafaxine XR 150 MG Capsule PO (07:52)
[2018-05-20] MEDS: Calcium (Elemental) 500 MG Tablet PO (07:52)
[2018-05-20 09:54] VITALS: BP 132/75; PULSE 72; RESP 16; TEMP 36.5; O2SAT 93
--- NOTE | 2018-05-20 11:35 | CASEMGMT ---
Social Work Spoke with patient and patient daughter. Patient requesting for referral to be made to the Transitional Care Unit for further therapy services as patient is unable to discharge to home at this time and Medicare days are up on 05/24/18. Telephone call to Transitional Care Unit, Jessy. This social security benefits interviewer making referral. Jessy reporting to be able to accept patient a time of discharge. Planning to team patient tomorrow and confirm day of discharge. Transfer form initiated. Will continue to follow. YENNY TorresW, FAMILY PSYCHOLOGIST
[2018-05-20 12:44] VITALS: BMI 30.4
--- NOTE | 2018-05-20 16:56 | CON.PCM_ITS ---
Reason for Consult Date of Consultation: 05/20/18 Reason for Consultation: retention of urine History of Present Illness: The patient is a 77 year old female who had a tia/ stroke had retention of urine and need cath now on flomas has been urinating better and pvr ok for now Past Medical History Past Medical History (Chronic Problems): Chronic Problems (Last Updated 05/19/18 @ 15:53 by Lance Barnes DO) Slurred speech (Chronic) Hypokalemia (Chronic) Presence of aortocoronary bypass graft (Chronic) CABG X 2 CAN-LAD, SVG-CX 06/11/2014 @ [facility] per Dr. Sutton Atherosclerotic heart disease of [place] coronary artery without angina pectoris (Chronic) Presence of coronary angioplasty implant and graft (Chronic) IVUS left main 06/07/2014, PCI-FAREED Prox & Mid LAD 04/13/2015 Paroxysmal atrial fibrillation (Chronic) Dyspnea on exertion (Chronic) Dizziness (Chronic) Near syncope (Chronic) Stenosis of right carotid artery (Chronic) Right bundle branch block (Chronic) Anxiety (Chronic) Hyperlipidemia (Chronic) Hypertension (Chronic) Hypothyroidism (Chronic) Medical History: Medical History (Last Updated 05/19/18 @ 15:53 by Lance Barnes DO) Hypokalemia (Chronic) E87.6 Atherosclerotic heart disease of [place] coronary artery without angina pectoris (Chronic) I25.10 Paroxysmal atrial fibrillation (Chronic) I48.0 Stenosis of right carotid artery (Chronic) I65.21 Right bundle branch block (Chronic) I45.10 Hyperlipidemia (Chronic) E78.5 Hypertension (Chronic) I10 Hypothyroidism (Chronic) E03.9 CVA (cerebral vascular accident) (Acute) I63.9 MRI demonstrated an acute infarct in the right thalamus and left parietal region. 01/2017 Allergies atorvastatin Allergy (Verified 05/01/18 19:47) Other muscle weakness codeine Allergy (Verified 05/01/18 19:47) Unknown levofloxacin [From Levaquin] Allergy (Verified 05/01/18 19:47) Pain in joints Penicillins Allergy (Verified 05/01/18 19:47) Swelling tongue swells and hives pravastatin Allergy (Verified 05/01/18 19:47) myalgia Sulfa (Sulfonamide Antibiotics) Allergy (Verified 05/01/18 19:47) Swelling tongue swell and hives Home Medications: Ambulatory Orders Medication Instructions Recorded Levothyroxine [Synthroid] 75 mcg PO DAILY 06/07/14 ALPRAZolam [Xanax] 0.25 mg PO QHS 04/29/18 Bupropion HCl [Bupropion Xl] 150 mg PO DAILY 04/29/18 Potassium Chloride [Klor-Con M20] 40 meq PO BID 04/29/18 Venlafaxine XR [Effexor Xr] 150 mg PO DAILY 04/29/18 Aspirin [Aspirin, Baby] 81 mg PO DAILY@0800 05/01/18 clopidogrel 75 mg tablet 75 mg PO DAILY #90 tab 05/18/18 Surgical History: Surgical History (Last Reviewed 05/01/18 @ 13:14 by Moises Angelo MD) Presence of aortocoronary bypass graft (Chronic) Z95.1 CABG X 2 CAN-LAD, SVG-CX 06/11/2014 @ [facility] per Dr. Sutton Presence of coronary angioplasty implant and graft (Chronic) Z95.5 IVUS left main 06/07/2014, PCI-FAREED Prox & Mid LAD 04/13/2015 Surgical History: arthroscopy, knee, - - CABG, ankle surgery, kidney surgery, knee replacement Psychiatric History: No pertinent psych hx Smoking Status: Never smoker - *Family History Maternal Family History: Family History (Last Reviewed 05/01/18 @ 13:14 by Moises Angelo MD) Father Heart disease Sister Cancer Uncle CAD (coronary artery disease) History Items: - - strokers on mothers sides Paternal Family History: Family History (Last Reviewed 05/01/18 @ 13:14 by Moises Angelo MD) Father Heart disease Sister Cancer Uncle CAD (coronary artery disease) History Items: Heart Disease Review of Systems Constitutional: Denies: Chills, Fever, Weight Change HEENT: Denies: Head Aches, Sinus Congestion, Sinus Drainage Cardiovascular: Denies: Chest Pain, Palpitations Respiratory: Denies: Cough, Shortness of breath at rest, Sputum production Gastrointestinal: Denies: Abdominal Pain, Nausea, Vomiting Genitourinary: Reports: Retention. Denies: Dysuria Musculoskeletal: Denies: Joint Pain, Joint Tenderness Skin: Denies: Rash, Wounds Neurological: Denies: Numbness, Tingling, Focal weakness Psychiatric: Denies: Anxiety, Depression, Homicidal Ideations, Suicidal Ideations Hematologic/ Lymphatic: Denies: Easy Bruising, Easy Bleeding Physical Exam - Physical Exam Vital Signs Temp 97.7 F L 05/20/18 09:54 Pulse 72 05/20/18 09:54 Resp 16 05/20/18 09:54 BP 132/75 H 05/20/18 09:54 Pulse Ox 93 05/20/18 09:54 Intake & Output 05/18/18 05/19/18 05/20/18 23:59 23:59 23:59 Intake Total 580 / 580 360 / 360 640 / 640 Output Total 575 / 575 Balance 5 / 5 360 / 360 640 / 640 Weight: 83.3 kg 81.1 kg Intake: Oral 580 / 580 360 / 360 640 / 640 Output: Urine 575 / 575 Other: Number of Bowel Movements 1 General: Alert HEENT: Atraumatic Oral: Moist Mucosa Neck: Supple Lungs: Normal air movement Assessment/Plan All Active Problems (Last Updated 05/19/18 @ 15:53 by Lance Barnes DO) CVA (cerebral vascular accident) (Acute) looks like retention was temporary better now with mobilization on flomax I presume at somepoint we can stop it. follow up with urology prn
[2018-05-20] MEDS: Tamsulosin HCl 0.4 MG Capsule 0.8 MG PO (16:57)
[2018-05-20 19:29] VITALS: BP 155/92; PULSE 82; RESP 17; TEMP 36.5; O2SAT 95
[2018-05-20] MEDS: ALPRAZolam 0.25 MG Tablet PO (20:35)
[2018-05-20 23:37] VITALS: BMI 30.4
--- NOTE | 2018-05-21 01:16 | NURSING ---
Reviewed and agree with [employer]X VISUAL DESIGN[employer] documentation and FIMs charting.
[2018-05-21] MEDS: Enoxaparin 40 MG/0.4 ML Syringe SC (05:30)
[2018-05-21] MEDS: Levothyroxine 75 MCG Tablet PO (05:30)
[2018-05-21 07:24] VITALS: BP 128/84; PULSE 73; RESP 18; TEMP 36.6; O2SAT 95
[2018-05-21] MEDS: Venlafaxine XR 150 MG Capsule PO (07:35)
[2018-05-21] MEDS: Aspirin 81 MG TAB.CHEW PO (07:35)
[2018-05-21] MEDS: Calcium (Elemental) 500 MG Tablet PO (07:36)
[2018-05-21] MEDS: Clopidogrel Bisulfate 75 MG Tablet PO (07:36)
[2018-05-21] MEDS: buPROPion (XL) 150 MG TABLET.XL PO (07:36)
--- NOTE | 2018-05-21 10:01 | PCM.TXEXTCAR ---
- Diet 05/04/18 14:37 Diet: Cardiac/Low Cholesterol Food consistency:: Puree Liquid Consistency:: Pudding Thick Dietary Modifications:: Pureed Diet Pudding Thick Liquids Is pt able to select menu?: Yes Diet Comments: Supervision; all intake via spoon, seated upright, 2000 mg sodium - Routine Orders/Code Status O2 Liters per Minute: 2 O2 Frequency: PRN Keep PO Greater than or Equal to (%): 92 Code Status: Full Code - Wound(s) right white Wound Type: scab - Therapies Weight Bearing: Non weight bearing Extremity Affected:: Left Lower Physical Therapy: Eval and Treat Occupational Therapy: Eval and Treat Speech Therapy: Eval and Treat - Allergies/Procedures Done in Hospital Allergies/Adverse Reactions: Allergies atorvastatin Allergy (Verified 05/01/18 19:47) Other muscle weakness codeine Allergy (Verified 05/01/18 19:47) Unknown levofloxacin [From Levaquin] Allergy (Verified 05/01/18 19:47) Pain in joints Penicillins Allergy (Verified 05/01/18 19:47) Swelling tongue swells and hives pravastatin Allergy (Verified 05/01/18 19:47) myalgia Sulfa (Sulfonamide Antibiotics) Allergy (Verified 05/01/18 19:47) Swelling tongue swell and hives Procedures: None - Type of Care/Length of Stay Estimated LOS: More Than 30 Days Type of Care Needed: Skilled Rehab Potential: Good Prognosis: Good - Additional Orders/Day of Discharge Day of Discharge: 05/24/18 - Follow Up Care Primary Care Physician: Marisol Casas DO [Primary Care Provider] - Please Follow Up With: Erendira Verdugo NP-C When: call for appointment
--- NOTE | 2018-05-21 10:06 | PCM.RU.DC ---
Rehab Discharge Summary DATE OF ADMISSION: 05/01/18 DATE OF DISCHARGE: 05/24/18 - Rehab Diagnosis Knee, left ankle fracture, CVA Patient Problems: Active and Suspected Problems (Last Updated 05/19/18 @ 15:53 by Lance Barnes DO) CVA (cerebral vascular accident) (Acute) MRI demonstrated an acute infarct in the right thalamus and left parietal region. 01/2017 - Physical Exam General: Alert, Oriented x3, Cooperative, No apparent distress Lungs: Clear to auscultation Cardiovascular: Regular rate Abdomen: Bowel Sounds Present Extremities: No Calf Tenderness Neurological: Slurred Speech Psych/Mental Status: Normal Affect, Alert and oriented to time, place, person, mood and affect Vital Signs Temp Pulse Resp BP Pulse Ox 36.6 C 73 18 128/84 H 95 05/21/18 07:24 05/21/18 07:24 05/21/18 07:24 05/21/18 07:24 05/21/18 07:24 Oxygen Flow Rate (L/min) 3 Oxygen Delivery Method Room Air Weight: 81.1 kg Body Mass Index (BMI) 30.4 Finger Stick Blood Glucose 100 Intake and Output for Last 24 Hours 05/19/18 05/20/18 05/21/18 23:59 23:59 23:59 Intake Total 360 / 360 880 / 880 Balance 360 / 360 880 / 880 Current Medications Generic Name Dose Route Start Last Admin Trade Name Freq PRN Reason Stop Dose Admin Acetaminophen 650 mg 05/01/18 18:21 05/08/18 17:30 Tylenol PO 650 mg Q6H PRN PRN Administration Mild Pain (0-3/10)/Headache Alprazolam 0.25 mg 05/01/18 22:00 05/20/18 20:35 Xanax PO 0.25 mg QHS [facility] Administration Aspirin 81 mg 05/02/18 08:00 05/21/18 07:35 Aspirin, Baby PO 81 mg DAILY@0800 [facility] Administration Bisacodyl 10 mg 05/01/18 18:21 05/07/18 04:05 Dulcolax RECTAL 10 mg .PRN X 1 PRN Administration Constipation Bupropion HCl 150 mg 05/02/18 10:00 05/21/18 07:36 Wellbutrin Xl PO 150 mg DAILY [facility] Administration Calcium Carbonate 500 mg 05/07/18 12:00 05/21/18 07:36 Os-Tr 500 PO 500 mg DAILY@0800 [facility] Administration Cholecalciferol 2,000 unit 05/07/18 12:00 05/21/18 07:36 Vitamin D PO 2,000 unit DAILY [facility] Administration Clopidogrel Bisulfate 75 mg 05/02/18 10:00 05/21/18 07:36 Plavix PO 75 mg DAILY [facility] Administration Enoxaparin Sodium 40 mg 05/02/18 06:00 05/21/18 05:30 Lovenox SC 40 mg DAILY@0600 [facility] Administration Levothyroxine Sodium 75 mcg 05/02/18 06:00 05/21/18 05:30 Synthroid PO 75 mcg DAILY@0600 [facility] Administration Magnesium Hydroxide 30 ml 05/01/18 18:21 05/20/18 06:14 Milk Of Magnesia PO 30 ml .PRN X 1 PRN Administration Constipation Ondansetron HCl 4 mg 05/11/18 09:16 05/11/18 20:25 Zofran Odt PO 4 mg Q8H PRN PRN Administration NAUSEA/VOMITING Potassium Chloride 40 meq 05/02/18 08:00 05/21/18 07:37 [facility] Senna/Docusate Sodium 2 tablet 05/01/18 22:00 05/21/18 07:38 Senokot-S, Yessy-Colace PO Not Given BID [facility] Tamsulosin HCl 0.8 mg 05/11/18 17:30 05/20/18 16:57 Flomax PO 0.8 mg DAILY@1730 [facility] Administration Venlafaxine HCl 150 mg 05/02/18 10:00 05/21/18 07:35 Effexor Xr PO 150 mg DAILY [facility] Administration Home Medications: Medications to take at Discharge Levothyroxine [Synthroid] 75 mcg PO DAILY 06/07/14 ALPRAZolam [Xanax] 0.25 mg PO QHS 04/29/18 Bupropion HCl [Bupropion Xl] 150 mg PO DAILY 04/29/18 Potassium Chloride [Klor-Con M20] 40 meq PO BID 04/29/18 Venlafaxine XR [Effexor Xr] 150 mg PO DAILY 04/29/18 Aspirin [Aspirin, Baby] 81 mg PO DAILY@0800 10/26/18 clopidogrel 75 mg tablet 75 mg PO DAILY #90 tab 05/18/18 Primary Care Physician: Marisol Casas DO [Primary Care Provider] - Please Follow Up With: Erendira Verdugo NP-C When: call for appointment Rehab Course The patient is a 77 year old F who fell in her bathroom approximately 1 month ago, has had pain and was ultimately diagnosed with a left ankle fracture which was treated nonoperatively. She was having difficulty at home and was admitted to a local fpc for convalescence. 04/29/2018 at about 8 AM 1 of her daughters noted some slurred speech and she was brought to the hospital. She denies any other symptoms. There is some emotionality today but she and her daughter indicates that this is not new and is due to some intercurrent stress due to her illness as well as her 's illness. She says she has a history of borderline diabetes but does not know her sugars, her blood pressures have been only mildly elevated at 130-150 systolic, and she has untreated obstructive sleep apnea last sleep study was about 4 years ago. She denies any weakness otherwise, no double vision, blurred vision, or pain. Denies any triggers otherwise. She was diagnosed with a left pontine stroke by MRI, causing dysarthria and very mild right upper extremity weakness which has stabilized. Stroke workup was otherwise negative, now admitted to the rehab unit for further rehabilitation so that she can return home to her previous level of functional independence. per admit h&p:The patient is a 77 year old F with a PMH of HTN who was admitted through the ED on 04/29/18 with a complaint of slurred speech which started this morning. Patient is currently a patient in a SNF fo/a of right ankle fracture. She noted that she had slurring of her speech this morning. She couldnt say the exact time she noticed it, but whilst eating breakfast this morning, it wasnt present. Slurring of speech worsened so her daughter decided to bring her in to the hospital today. She had a mild headache yesterday, but denied any fever, chills, palpitations, SOB, lightheadedness, dizziness, ringing in her ears, abdominal pain, diarrhea or vomiting. EKG done in the ED showed RBBB and no acute ST changes. CT head was negative for any acute intracranial pathology. Labs were significant for sodium of 132, but was otherwise unremarkable. She is being admitted for stroke workup The patient was admitted to the rehab unit, therapies were initiated and she improved. Main stable. She did have dysphagia and diet was modified prior to discharge cookie swallow was rechecked however, as of this writing results are pending. She continued to improve, was discharged to the TCU in good condition with instructions as below. Meaningful Use Info Meaningful Use Diagnoses (Choose all that apply): None applicable
--- NOTE | 2018-05-21 10:13 | PN.NEURO_ITS ---
Patient Problems: Active and Suspected Problems (Last Updated 05/19/18 @ 15:53 by Lance Barnes DO) CVA (cerebral vascular accident) (Acute) MRI demonstrated an acute infarct in the right thalamus and left parietal region. 01/2017 Subjective: Patient staffed in team meeting. 2 daughters are present, questions answered. She is contact-guard assistance with bed mobility, there is still some balance issues with respect to after effects of her stroke. For occupational therapy she is minimal assistance with shower tasks and min to mod assistance with toileting and lower body care. Speech therapy is trialing solids today and a repeat swallow study is going to be performed. No issues from nursing although there has been some weight loss which this is attributed to the texture of her foods. Hopefully this can be resolved. Plan to discharge to the TCU on Friday. - Physical Exam General: Alert, Oriented x3, Cooperative, No apparent distress Neurological: Slurred Speech Psych/Mental Status: Normal Affect, Alert and oriented to time, place, person, mood and affect Vital Signs Temp Pulse Resp BP Pulse Ox 36.6 C 73 18 128/84 H 95 05/21/18 07:24 05/21/18 07:24 05/21/18 07:24 05/21/18 07:24 05/21/18 07:24 Oxygen Flow Rate (L/min) 3 Oxygen Delivery Method Room Air Weight: 81.1 kg Body Mass Index (BMI) 30.4 Finger Stick Blood Glucose 100 Intake and Output for Last 24 Hours 05/19/18 05/20/18 05/21/18 23:59 23:59 23:59 Intake Total 360 / 360 880 / 880 Balance 360 / 360 880 / 880 Current Medications Generic Name Dose Route Start Last Admin Trade Name Freq PRN Reason Stop Dose Admin Acetaminophen 650 mg 05/01/18 18:21 05/08/18 17:30 Tylenol PO 650 mg Q6H PRN PRN Administration Mild Pain (0-3/10)/Headache Alprazolam 0.25 mg 05/01/18 22:00 05/20/18 20:35 Xanax PO 0.25 mg QHS MELODY Administration Aspirin 81 mg 05/02/18 08:00 05/21/18 07:35 Aspirin, Baby PO 81 mg DAILY@0800 MELODY Administration Bisacodyl 10 mg 05/01/18 18:21 05/07/18 04:05 Dulcolax RECTAL 10 mg .PRN X 1 PRN Administration Constipation Bupropion HCl 150 mg 05/02/18 10:00 05/21/18 07:36 Wellbutrin Xl PO 150 mg DAILY [facility] Administration Calcium Carbonate 500 mg 05/07/18 12:00 05/21/18 07:36 Os-Tr 500 PO 500 mg DAILY@0800 [facility] Administration Cholecalciferol 2,000 unit 05/07/18 12:00 05/21/18 07:36 Vitamin D PO 2,000 unit DAILY [facility] Administration Clopidogrel Bisulfate 75 mg 05/02/18 10:00 05/21/18 07:36 Plavix PO 75 mg DAILY [facility] Administration Enoxaparin Sodium 40 mg 05/02/18 06:00 05/21/18 05:30 Lovenox SC 40 mg DAILY@0600 [facility] Administration Levothyroxine Sodium 75 mcg 05/02/18 06:00 05/21/18 05:30 Synthroid PO 75 mcg DAILY@0600 [facility] Administration Magnesium Hydroxide 30 ml 05/01/18 18:21 05/20/18 06:14 Milk Of Magnesia PO 30 ml .PRN X 1 PRN Administration Constipation Ondansetron HCl 4 mg 05/11/18 09:16 05/11/18 20:25 Zofran Odt PO 4 mg Q8H PRN PRN Administration NAUSEA/VOMITING Potassium Chloride 40 meq 05/02/18 08:00 05/21/18 07:37 K[facility]Dur [facility] Administration Senna/Docusate Sodium 2 tablet 05/01/18 22:00 05/21/18 07:38 Senokot-S, Yessy-Colace PO Not Given BID [facility] Tamsulosin HCl 0.8 mg 05/11/18 17:30 05/20/18 16:57 Flomax PO 0.8 mg DAILY@1730 [facility] Administration Venlafaxine HCl 150 mg 05/02/18 10:00 05/21/18 07:35 Effexor Xr PO 150 mg DAILY [facility] Administration Medical Necessity - Tobacco Use Smoking Status: Never smoker Assessment/Plan All Active Problems (Last Updated 05/19/18 @ 15:53 by Lance Barnes DO) CVA (cerebral vascular accident) (Acute) Debility s/p Acute left pontine infarct complicated by history of falls likely due to severe peripheral neuropathy likely idiopathic: Goal of therapy is samaritan of prior level of functional independence so that she can return home. Plan: - Physical therapy for gait and balance - Occupational Therapy for ADLs - Speech therapy for dysarthria - Aspirin and Plavix - Outpatient sleep study - Permissive hypertension until 05/04/18, then maintain BP less than 130/80 - DVT prophylaxis - Bowel protocol - Flomax started for urine retention => straight cath for 600cc of dark urine patient last voided 8 hrs prior = Increase dose of Flomax to 0.8mg daily - Acute Cystis = start on Macrobid 100mg BID given allergies to Cipro and sulf => resolved - last dose will be at 5pm today. Resolved - Start Vitamin D 2,000 units daily, and and Calcium 500mg daily to provide bone healing. - Cognitive impairment, likely vascular dementia, will continue non- pharmacologic management, to including sleep hygiene DC to TCU 05/24/18
--- NOTE | 2018-05-21 10:50 | CASEMGMT ---
Team meeting held. Patient present as well as patient family. Discharge date set for 05/24/18. Patient plans to transition to the Transitional Care Unit for further skilled services. Patient to continue with further care and treatment on the Transitional Care Unit until time of discharge. Support given. Transfer form initiated. Proposed discharge date: 05/24/18 PLAN: Discharge to the Transitional Care Unit, skilled. NADIYA Torres, CARNIVAL WORKER
--- NOTE | 2018-05-21 11:57 | PCM.PN.ORT ---
Patient Problems: Active and Suspected Problems (Last Updated 05/19/18 @ 15:53 by Lance Barnes DO) CVA (cerebral vascular accident) (Acute) MRI demonstrated an acute infarct in the right thalamus and left parietal region. 01/2017 Subjective: Pt evaluated in physical therapy, Acute Rehab Inpatient Unit. Pt is a 77 yo F w/ L distal fibula fracture who was being treated nonoperatively when her healing course was complicated by an acute stroke. PT states she is feeling well and is to be transferred soon to the TCU for continued care. She is wearing her pneumatic cam walker LLE. States she is still having some difficulty with NWB LLE ambulation but improving. Denies other complaints. Objective: PT evaluated in physical therapy. Pneumatic cam walker in place, further exam deferred / therapy. - Physical Exam General: Alert, Cooperative Vital Signs Temp Pulse Resp BP Pulse Ox 97.8 F 73 18 128/84 H 95 05/21/18 07:24 05/21/18 07:24 05/21/18 07:24 05/21/18 07:24 05/21/18 07:24 Oxygen Flow Rate (L/min) 3 Oxygen Delivery Method Room Air Weight: 178 lb 12.718 oz Body Mass Index (BMI) 30.4 Finger Stick Blood Glucose 100 Intake and Output for Last 24 Hours 05/19/18 05/20/18 05/21/18 23:59 23:59 23:59 Intake Total 360 / 360 880 / 880 240 / 240 Balance 360 / 360 880 / 880 240 / 240 Medical Necessity - Tobacco Use Smoking Status: Never smoker Assessment/Plan All Active Problems (Last Updated 05/19/18 @ 15:53 by Lance Barnes DO) CVA (cerebral vascular accident) (Acute) 77 yo F w/ L distal fibula fracture w/ nonoperative healing course complicated by acute stroke -Pt to be transferred to TCU for continued care and assistance with strict NWB LLE in cam walker. -Repeat ankle radiographs ordered to evaluate healing and position. -Will continue to follow in TCU as needed. -Please call with questions or concerns
--- NOTE | 2018-05-21 14:00 | SP.MBSS_ITS ---
PRIMARY / SECONDARY DIAGNOSIS: dysphagia (R13.12) REFERRING PHYSICIAN: Dr. Moises Angelo MD CURRENT DIET: pureed textures/pudding thickened liquids DENTITION: WFL MENTAL STATUS: sufficient for participation RESPIRATORY STATUS: patient oxygenating on room air PREVIOUS MODIFIED BARIUM SWALLOW STUDY: * 05/21/2018 MBS revealed moderate to severe oropharyngeal dysphagia (R13.12) with SILENT aspiration of thin, nectar and honey thickened liquids; pureed texture/pudding thickened liquid diet recommended * 01/30/2017 MBS revealed mild oral dysphagia (R13.11) without penetration or aspiration. REASON FOR REFERRAL: Patient is a 77 year old female referred for a modified barium swallow (MBS) study to objectively assess the Patients oropharyngeal swallow function under fluoroscopy secondary to an acute left paramedian pontine and medullary infarction with prior cerebrovascular accidents involving the javi, basal ganglia, right thalamus, and cerebellum, with known SILENT aspiration, necessitating repeat MBS prior to advancing beyond pudding thickened liquid. Moderate dysarthria with shallow breath support and mild hypophonia; horse vocal quality. ADDITIONAL OBJECTIVE ASSESSMENT RESULTS: 04/30/2018 MRI revealed tiny acute infarcts involving the left paramedian javi and medulla with chronic white matter ischemic changes of the javi; prominent perivascular spaces (PVS) involving the basal ganglia; abnormal signal in the right thalamus possibly related to previous ischemia; multiple small areas of encephalomalacia in the cerebellum and probably represent small old infarcts. MEDICAL HISTORY: Prior cerebral vascular accident involving the right thalamus and left parietal region (01/2017), dyspnea on exertion, atherosclerotic heart disease of [place] coronary artery without angina pectoris, status post aortocoronary bypass graft and coronary angioplasty implant and graft, stenosis of right carotid artery, right bundle branch block, paroxysmal atrial fibrillation, hypertension, hyperlipidemia, hypothyroidism, hypokalemia, dizziness, near syncope, anxiety. STUDY FINDINGS: Patient participated in a Modified Barium Swallow (MBS) study on 05/21/2018. Dr. Gonsalves was the radiologist present for this evaluation. This study was recorded in the lateral view and images were sent to PACs for storage. The following consistencies were presented to this patient for analysis of oropharyngeal swallow function: nectar thickened liquids, honey thickened liquids, pudding, and a regular texture Kelli Doone shortbread cookie. Results of the MBS are as follows: PENETRATION / ASPIRATION SCALE (FIGUEREDO): 1 = does not enter airway 2 = enters airway/above vocal folds/ejected 3 = enters airway/above vocal folds/not ejected 4 = enters airway/contacts vocal folds/ejected 5 = enters airway/contacts vocal folds/not ejected 6 = enters airway/below vocal folds/ejected 7 = enters airway/below vocal folds/not ejected despite effort 8 = enters airway/below vocal folds/no effort VIDEOFLOROSCOPIC SCALE SCORE (FIGUEREDO): Grade I = aspiration of material that has penetrated into the laryngeal vestibule, intact cough reflex Grade II = aspiration < 10 % of the bolus, intact cough reflex Grade III = aspiration of < 10 % of the bolus, reduced cough reflex or aspiration of > 10 % of the bolus, intact cough reflex Grade IV = aspiration of > 10 % of the bolus, reduced cough reflex PENETRATION / ASPIRATION SCALE (SCORE) WITH VIDEOFLOROSCOPIC SCALE SCORE: 1. Pudding via teaspoon: 1 = does not enter airway 2. Honey thickened liquid via teaspoon: 1 = does not enter airway 3. Honey thickened liquid via teaspoon: 1 = does not enter airway 4. Honey thickened liquid via cup: 1 = does not enter airway 5. Hanson thickened liquid via teaspoon: 1 = does not enter airway 6. [place] thickened liquid via cup: 7 = enters airway/below vocal folds/not ejected despite effort; Grade II = aspiration < 10 % of the bolus, intact cough reflex 7. [place] thickened liquid via cup w/ chin tuck: 7 = enters airway/below vocal folds/not ejected despite effort; Grade III = aspiration of < 10 % of the bolus, reduced cough reflex 8. [place] thickened liquid via teaspoon: 1 = does not enter airway 9. ? Kelli Doone Shortbread cookie: 1 = does not enter airway 10. Honey thickened liquid via cup: 1 = does not enter airway IMPRESSION: DIAGNOSIS: moderate oropharyngeal dysphagia (R13.12) ORAL PHASE CHARACTERIZED BY: LABIAL SEAL: no labial escape TONGUE CONTROL DURING BOLUS MANIPULATION: occasional escape to lateral buccal cavity/floor of mouth BOLUS PREPARATION / MASTICATION: slow prolonged mastication BOLUS TRANSPORT / LINGUAL MOTION: brisk tongue motion ORAL RESIDUE: trace residue lining oral structures PHARYNGEAL PHASE CHARACTERIZED BY: INITIATION OF PHARYNGEAL SWALLOW: bolus head in pyriforms at first hyoid excursion; improved w/ presentation via spoon and w/ thicker viscosities SOFT PALATE ELEVATION: no bolus between soft palate and pharyngeal wall LARYNGEAL ELEVATION: complete superior movement of thyroid cartilage with complete approximation of arytenoids cartilage to epiglottic petiole ANTERIOR HYOID EXCURSION: partial anterior movement EPIGLOTTIC MOVEMENT: complete epiglottic inversion LARYNGEAL VESTIBULE CLOSURE AT HEIGHT OF SWALLOW: incomplete laryngeal vestibule closure with narrow column of air/contrast in laryngeal vestibule PHARYNGEAL STRIPPING WAVE: pharyngeal stripping wave present / complete PHARYNGOESOPHAGEAL SEGMENT OPENING: partial distension and partial duration; partial obstruction of flow TONGUE BASE RETRACTION: trace column of contrast between tongue base and posterior pharyngeal wall PHARYNGEAL RESIDUE: trace residue within or on pharyngeal structures ESOPHAGEAL PHASE CHARACTERIZED BY: ESOPHAGEAL BOLUS CLEARANCE IN THE UPRIGHT POSITION: trace contrast lining the esophagus DIET TEXTURE RECOMMENDATIONS: Will recommend a pureed textured, honey thickened liquid diet. Recommend mechanical soft textures and nectar thickened liquids via teaspoon to be trialed under direct CAR FERRY MASTER supervision w/ advancement as appropriate. COMPENSATORY STRATEGIES RECOMMENDED: Supervision with assistance as needed, reduced bolus volumes, OK for HTL bolus via cup w/ small sips vs. spoon if unable to moderate liquid volume, no straws, seated upright at 90 degrees during PO intake, remain upright for 30- 60 minutes post meal (GERD precaution), medications crushed with purees. INTERPRETATION OF RESULTS: This patient presents with moderate oropharyngeal dysphagia (R13.12) secondary to an 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 Oral phase was marked by prolonged oral preparatory time with mastication of solids and premature pharyngeal bolus entry appreciated across consistencies to varying degrees. Pharyngeal phase is marked by delayed pharyngeal swallow onset nectar thickened liquids pooling to the pyriforms at time of swallow onset. NTL reached the pyriforms w/ penetration/aspiration on contrast. The patient had a cough response to aspirate, although it was not strong enough to expel contrast from the trachea. Use of a chin tuck posture was effective to improve laryngeal vestibule closure and reduce but not eliminate degree/severity of aspiration. Premature pharyngeal entry and swallow onset timing improved w/ thicker viscosities and smaller bolus volumes. A cricopharyngeal bar was noted at the C-6/C-7 level. Trace contrast lined the esophagus post deglutition. RECOMMENDATIONS: * Recommend immediate initiation of a pureed texture and honey thickened liquid diet. * Trials of mechanical soft textures and nectar thickened liquids via teaspoon to be initiated under CAR FERRY MASTER supervision only. * Consider limiting meals to 1-2 mechanical soft textured items w/ the remainder pureed d/t mastication inefficiency w/ prolonged oral prep and transit time appreciated which may prolong meal time w/ reduced caloric intake. * Anticipate ability to advance to NTL via teaspoon and subsequently via cup w/ close assessment of pulmonary status, as the patient did demonstrate overt aspiration w/ cough response to HTL under fluoroscopy. * Recommend a repeat MBS in when clinically appropriate to assess for upgrade to thin liquids, as patient was known to silently aspirate w/ thin liquids under fluoroscopy during a prior study. * Continued participation in the [place] Free Water Protocol is recommended. * This patient continues to require intensive skilled speech-language intervention targeting: * diet texture/liquid consistency management * training and implementation of recommended compensatory strategies * training and implementation of oropharyngeal strengthening exercises to facilitate improved oropharyngeal swallow function to improve/reduce aspiration risk * ongoing education re: implementation of the FFWP * patient/caregiver training targeting meal preparation/thickened liquid preparation if unable to advance to baseline diet textures prior to discharge ADDITIONAL COMMENTS/RECOMMENDATIONS: Results and recommendations were discussed with the Patient immediately following MBS completion, with the Patient verbalizing understanding and agreement with all recommendations and education provided. IMAGE COUNT: [id number]
--- NOTE | 2018-05-21 14:00 | RAD_ITS ---
STUDY: X-RAY - LEFT ANKLE REASON FOR EXAM: Female, 77 years old. Trauma, recheck fracture. TECHNIQUE: 3 view(s) of the ankle. COMPARISON: X-Ray Ankle 05/07/2018. FINDINGS: Distal fibular fracture, small displaced cortical fragment, in anatomic alignment, without significant formation of bridging callus. Next line distal tibia intact. Proximal foot intact. 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 RAD/Ankle min 3 Views IMPRESSION: Distal fibular fracture in anatomic alignment without significant evidence of interval fusion since prior imaging of 05/07/2018. Electronically Signed: Gerber Ackerman, at 19:08 EST Tel , Service support ,
--- NOTE | 2018-05-21 14:10 | RAD_ITS ---
STUDY: SWALLOWING STUDY REASON FOR EXAM: Female, 77 years old. Dysphagia. TECHNIQUE: The examination was performed with Speech Pathology in attendance. Under fluoroscopic observation, the patient ingested thin barium, thick barium, barium pudding, and barium coated cracker. FLUOROSCOPY TIME: 2:00 minutes/seconds. Comparison is made with prior study dated May 04, 2018. RADIOLOGIST INVOLVEMENT: Radiologist was present and providing direct supervision. COMPARISON: None. FINDINGS: The following was observed during swallowing of the various mixtures of barium: Thick Barium: Aspiration with ingestion of nectar thickened liquids by the cup. There is a delayed response. This improves with the chin tuck maneuver. There is no aspiration or penetration with ingestion by spoon. Barium Pudding: There was no evidence of aspiration or laryngeal penetration. Barium Coated Cracker: There was no evidence of aspiration or laryngeal penetration. RAD/Swallowing Function w/Video IMPRESSION: Aspiration with ingestion of nectar thickened liquids by cup. This improves with the chin tuck maneuver. The swallow study findings were discussed with the patient by the speech pathologist at the conclusion of the examination. Please see speech pathology report for more information and recommendations. Electronically Signed: Panfilo Gonsalves MD at 14:56 EST Tel [phone], Service support ,
[2018-05-21 15:05] VITALS: BMI 30.4
[2018-05-21] MEDS: Tamsulosin HCl 0.4 MG Capsule 0.8 MG PO (16:51)
[2018-05-21 20:02] VITALS: BP 147/84; PULSE 77; RESP 18; TEMP 36.6; O2SAT 94
[2018-05-21] MEDS: ALPRAZolam 0.25 MG Tablet PO (22:13)
[2018-05-21] MEDS: Senna/Docusate Sodium 1 Tablet 2 TABLET PO (22:14)
[2018-05-22 05:00] VITALS: BMI 30.4
[2018-05-22] MEDS: Enoxaparin 40 MG/0.4 ML Syringe SC (05:29)
[2018-05-22] MEDS: Levothyroxine 75 MCG Tablet PO (05:29)
[2018-05-22 07:18] VITALS: BP 115/57; PULSE 68; RESP 18; TEMP 36.8; O2SAT 93
[2018-05-22] MEDS: Senna/Docusate Sodium 1 Tablet 2 TABLET PO ×2 (11:06→19:37)
[2018-05-22] MEDS: Aspirin 81 MG TAB.CHEW PO (11:07)
[2018-05-22] MEDS: Clopidogrel Bisulfate 75 MG Tablet PO (11:07)
[2018-05-22] MEDS: buPROPion (XL) 150 MG TABLET.XL PO (11:07)
[2018-05-22] MEDS: Venlafaxine XR 150 MG Capsule PO (11:07)
[2018-05-22] MEDS: Calcium (Elemental) 500 MG Tablet PO (11:07)
[2018-05-22 11:16] VITALS: BMI 30.4
[2018-05-22] MEDS: Tamsulosin HCl 0.4 MG Capsule 0.8 MG PO (16:49)
[2018-05-22 17:47] VITALS: BP 138/84; PULSE 82; RESP 16; TEMP 36.5; O2SAT 94
[2018-05-22] MEDS: Acetaminophen 325 MG Tablet 650 MG PO (19:37)
[2018-05-22] MEDS: ALPRAZolam 0.25 MG Tablet PO (19:39)
[2018-05-22 23:49] VITALS: BMI 30.4
[2018-05-23] MEDS: Enoxaparin 40 MG/0.4 ML Syringe SC (06:13)
[2018-05-23] MEDS: Levothyroxine 75 MCG Tablet PO (06:22)
[2018-05-23 07:40] VITALS: BP 149/80; PULSE 70; RESP 18; TEMP 36.7; O2SAT 94
[2018-05-23] MEDS: buPROPion (XL) 150 MG TABLET.XL PO (07:51)
[2018-05-23] MEDS: Senna/Docusate Sodium 1 Tablet 2 TABLET PO ×2 (07:52→21:48)
[2018-05-23] MEDS: Venlafaxine XR 150 MG Capsule PO (07:53)
[2018-05-23] MEDS: Aspirin 81 MG TAB.CHEW PO (07:54)
[2018-05-23] MEDS: Clopidogrel Bisulfate 75 MG Tablet PO (07:54)
[2018-05-23] MEDS: Calcium (Elemental) 500 MG Tablet PO (07:56)
[2018-05-23 10:06] VITALS: BP 137/81; PULSE 68; RESP 18; TEMP 36.8; O2SAT 94
--- NOTE | 2018-05-23 11:36 | NURSING ---
Pt has cloudy,foul smelling urine, pt has c/o of intermittent abd pain. Dr. Barnes ordered UA.
[2018-05-23 12:23] LABS: Mucous, Urine 0 SEEN /hpf (<or=2+); Red Blood Cells-Urine 0 SEEN /hpf (0-5); Squamous Epithelial Cells - UA 0 SEEN /hpf (5-10)
[2018-05-23 12:25] VITALS: BMI 30.4
[2018-05-23 13:27] LABS: Color, Urine Yellow (Yellow); Glucose, Dipstick Normal (Normal); Ketone-Dipstick Negative (Negative); Leukocyte Esterase-Dipstick Negative /ul (Negative); Nitrite-Dipstick Positive (Negative); Occult Blood-Urine 10 /ul (Negative); Protein-Dipstick Negative (Negative); Urine Bilirubin Dipstick Negative (Negative); Urine Clarity Cloudy (Clear); Urine Urobilinogen Normal (Normal)
[2018-05-23 13:32] LABS: Bacteria 4+ /hpf (None Seen); White Blood Cells 0-5 SEEN /hpf (0-5)
--- NOTE | 2018-05-23 14:08 | PCM.PN.HOSP ---
Patient Problems: Active and Suspected Problems (Last Updated 05/19/18 @ 15:53 by Lance Barnes DO) CVA (cerebral vascular accident) (Acute) MRI demonstrated an acute infarct in the right thalamus and left parietal region. 01/2017 Subjective: Noted to have strong odor in her urine. Patient denies dysuria. Vitals/I&O's: Vital Signs Temp Pulse Resp BP Pulse Ox 36.7 C 70 18 149/80 H 94 05/23/18 07:40 05/23/18 07:40 05/23/18 07:40 05/23/18 07:40 05/23/18 07:40 Oxygen Flow Rate (L/min) 3 Oxygen Delivery Method Room Air Weight: 81.1 kg Body Mass Index (BMI) 30.4 Finger Stick Blood Glucose 100 Intake and Output for Last 24 Hours 05/21/18 05/22/18 05/23/18 23:59 23:59 23:59 Intake Total 240 / 240 600 / 600 440 / 440 Balance 240 / 240 600 / 600 440 / 440 General: Alert, No apparent distress HEENT: Atraumatic, Normocephalic Oral: Moist Mucosa, No Gingival or Mucosal Lesions/ Ulcerations Neck: No Nodes, Thyroid Normal Size and Texture Lungs: Clear to auscultation, Normal air movement, No rhonchi, No wheeze Cardiovascular: Regular rate, Regular Rhythm, Normal S1, Normal S2 Abdomen: Bowel Sounds Present, Soft, Non Tender, Non-Distended, No Hepato-splenomegaly Extremities: No edema, No Calf Tenderness Laboratory Results 05/23/18 11:50: Urine Color Yellow, Urine Clarity Cloudy, Urine pH 7.0, Ur Specific [place] 1.010, Urine Protein Negative, Urine Glucose (UA) Normal, Urine Ketones Negative, Urine Occult Blood 10 H, Urine Nitrite Positive H, Urine Bilirubin Negative, Urine Urobilinogen Normal, Ur Leukocyte Esterase Negative, Urine RBC 0 SEEN, Urine WBC 0-5 SEEN, Ur Squamous Epith Cells 0 SEEN, Urine Bacteria 4+, Urine Mucus 0 SEEN Current Medications Acetaminophen (Tylenol) 650 mg PO Q6H PRN PRN PRN Reason: Mild Pain (0-3/10)/Headache Last Admin: 05/22/18 19:37 Dose: 650 mg Alprazolam (Xanax) 0.25 mg PO QHS MELODY Last Admin: 05/22/18 19:39 Dose: 0.25 mg Aspirin (Aspirin, Baby) 81 mg PO DAILY@0800 [facility] Last Admin: 05/23/18 07:54 Dose: 81 mg Bisacodyl (Dulcolax) 10 mg RECTAL .PRN X 1 PRN PRN Reason: Constipation Last Admin: 05/07/18 04:05 Dose: 10 mg Bupropion HCl (Wellbutrin Xl) 150 mg PO DAILY [facility] Last Admin: 05/23/18 07:51 Dose: 150 mg Calcium Carbonate (Os-Tr 500) 500 mg PO DAILY@0800 [facility] Last Admin: 05/23/18 07:56 Dose: 500 mg Cholecalciferol (Vitamin D) 2,000 unit PO DAILY [facility] Last Admin: 05/23/18 07:57 Dose: 2,000 unit Clopidogrel Bisulfate (Plavix) 75 mg PO DAILY [facility] Last Admin: 05/23/18 07:54 Dose: 75 mg Enoxaparin Sodium (Lovenox) 40 mg SC DAILY@0600 [facility] Last Admin: 05/23/18 06:13 Dose: 40 mg Levothyroxine Sodium (Synthroid) 75 mcg PO DAILY@0600 [facility] Last Admin: 05/23/18 06:22 Dose: 75 mcg Magnesium Hydroxide (Milk Of Magnesia) 30 ml PO .PRN X 1 PRN PRN Reason: Constipation Last Admin: 05/20/18 06:14 Dose: 30 ml Ondansetron HCl (Zofran Odt) 4 mg PO Q8H PRN PRN PRN Reason: NAUSEA/VOMITING Last Admin: 05/11/18 20:25 Dose: 4 mg Potassium Chloride (K-Dur) [facility] Last Admin: 05/23/18 07:54 Dose: 40 meq Senna/Docusate Sodium (Senokot-S, Yessy-Colace) 2 tablet PO BID [facility] Last Admin: 05/23/18 07:52 Dose: 2 tablet Tamsulosin HCl (Flomax) 0.8 mg PO DAILY@1730 [facility] Last Admin: 05/22/18 16:49 Dose: 0.8 mg Venlafaxine HCl (Effexor Xr) 150 mg PO DAILY [facility] Last Admin: 05/23/18 07:53 Dose: 150 mg Medical Necessity - Tobacco Use Smoking Status: Never smoker Assessment/Plan All Active Problems (Last Updated 05/19/18 @ 15:53 by Lance Barnes DO) CVA (cerebral vascular accident) (Acute) 1. CVA on ASA and Plavix statin allergy BP control 2. Left fibular fracture aligned Cam walker to LLE NWB LLE follow up with ortho as outpt 3. bacteruria No WBCs no treatment 4. hyponatremia chronic maybe SIADH TSH has been normal 5. DVT proph: LMWH. Code Visit Inpatient E&M: 85016 Subs Hosp L2
--- NOTE | 2018-05-23 14:12 | PN_ITS ---
Patient Problems: Active and Suspected Problems (Last Updated 05/19/18 @ 15:53 by Lance Barnes DO) CVA (cerebral vascular accident) (Acute) MRI demonstrated an acute infarct in the right thalamus and left parietal region. 01/2017 Subjective: Noted to have strong odor in her urine. Patient denies dysuria. Vitals/I&O's: Vital Signs Temp Pulse Resp BP Pulse Ox 36.7 C 70 18 149/80 H 94 05/23/18 07:40 05/23/18 07:40 05/23/18 07:40 05/23/18 07:40 05/23/18 07:40 Oxygen Flow Rate (L/min) 3 Oxygen Delivery Method Room Air Weight: 81.1 kg Body Mass Index (BMI) 30.4 Finger Stick Blood Glucose 100 Intake and Output for Last 24 Hours 05/21/18 05/22/18 05/23/18 23:59 23:59 23:59 Intake Total 240 / 240 600 / 600 440 / 440 Balance 240 / 240 600 / 600 440 / 440 General: Alert, No apparent distress HEENT: Atraumatic, Normocephalic Oral: Moist Mucosa, No Gingival or Mucosal Lesions/ Ulcerations Neck: No Nodes, Thyroid Normal Size and Texture Lungs: Clear to auscultation, Normal air movement, No rhonchi, No wheeze Cardiovascular: Regular rate, Regular Rhythm, Normal S1, Normal S2 Abdomen: Bowel Sounds Present, Soft, Non Tender, Non-Distended, No Hepato- splenomegaly Extremities: No edema, No Calf Tenderness Laboratory Results 05/23/18 11:50: Urine Color Yellow, Urine Clarity Cloudy, Urine pH 7.0, Ur Specific [place] 1.010, Urine Protein Negative, Urine Glucose (UA) Normal, Urine Ketones Negative, Urine Occult Blood 10 H, Urine Nitrite Positive H, Urine Bilirubin Negative, Urine Urobilinogen Normal, Ur Leukocyte Esterase Negative, Urine RBC 0 SEEN, Urine WBC 0-5 SEEN, Ur Squamous Epith Cells 0 SEEN, Urine Bacteria 4+, Urine Mucus 0 SEEN Current Medications Acetaminophen (Tylenol) 650 mg PO Q6H PRN PRN PRN Reason: Mild Pain (0-3/10)/Headache Last Admin: 05/22/18 19:37 Dose: 650 mg Alprazolam (Xanax) 0.25 mg PO QHS MELODY Last Admin: 05/22/18 19:39 Dose: 0.25 mg Aspirin (Aspirin, Baby) 81 mg PO DAILY@0800 [facility] Last Admin: 05/23/18 07:54 Dose: 81 mg Bisacodyl (Dulcolax) 10 mg RECTAL .PRN X 1 PRN PRN Reason: Constipation Last Admin: 05/07/18 04:05 Dose: 10 mg Bupropion HCl (Wellbutrin Xl) 150 mg PO DAILY [facility] Last Admin: 05/23/18 07:51 Dose: 150 mg Calcium Carbonate (Os-Tr 500) 500 mg PO DAILY@0800 [facility] Last Admin: 05/23/18 07:56 Dose: 500 mg Cholecalciferol (Vitamin D) 2,000 unit PO DAILY [facility] Last Admin: 05/23/18 07:57 Dose: 2,000 unit Clopidogrel Bisulfate (Plavix) 75 mg PO DAILY [facility] Last Admin: 05/23/18 07:54 Dose: 75 mg Enoxaparin Sodium (Lovenox) 40 mg SC DAILY@0600 [facility] Last Admin: 05/23/18 06:13 Dose: 40 mg Levothyroxine Sodium (Synthroid) 75 mcg PO DAILY@0600 [facility] Last Admin: 05/23/18 06:22 Dose: 75 mcg Magnesium Hydroxide (Milk Of Magnesia) 30 ml PO .PRN X 1 PRN PRN Reason: Constipation Last Admin: 05/20/18 06:14 Dose: 30 ml Ondansetron HCl (Zofran Odt) 4 mg PO Q8H PRN PRN PRN Reason: NAUSEA/VOMITING Last Admin: 05/11/18 20:25 Dose: 4 mg [facility] ([facility] Last Admin: 05/23/18 07:54 Dose: 40 meq Senna/Docusate Sodium (Senokot-S, Yessy-Colace) 2 tablet PO BID [facility] Last Admin: 05/23/18 07:52 Dose: 2 tablet Tamsulosin HCl (Flomax) 0.8 mg PO DAILY@1730 [facility] Last Admin: 05/22/18 16:49 Dose: 0.8 mg Venlafaxine HCl (Effexor Xr) 150 mg PO DAILY [facility] Last Admin: 05/23/18 07:53 Dose: 150 mg Medical Necessity - Tobacco Use Smoking Status: Never smoker Assessment/Plan All Active Problems (Last Updated 05/19/18 @ 15:53 by Lance Barnes DO) CVA (cerebral vascular accident) (Acute) 1. CVA * on ASA and Plavix * statin allergy * BP control 2. Left fibular fracture * aligned * Cam walker to LLE * NWB LLE * follow up with ortho as outpt 3. bacteruria * No WBCs * no treatment 4. hyponatremia * chronic * maybe SIADH * TSH has been normal 5. DVT proph: LMWH. Code Visit Inpatient E&M: 94858 Subs Hosp L2
[2018-05-23] MEDS: Tamsulosin HCl 0.4 MG Capsule 0.8 MG PO (17:39)
[2018-05-23 20:45] VITALS: BP 137/80; PULSE 80; RESP 16; TEMP 36.6; O2SAT 94
[2018-05-23] MEDS: ALPRAZolam 0.25 MG Tablet PO (21:48)
[2018-05-24] MEDS: Levothyroxine 75 MCG Tablet PO (06:03)
[2018-05-24] MEDS: Enoxaparin 40 MG/0.4 ML Syringe SC (06:03)
[2018-05-24 07:00] VITALS: BP 137/81; PULSE 68; RESP 18; TEMP 36.8; O2SAT 94
[2018-05-24] MEDS: Aspirin 81 MG TAB.CHEW PO (09:49)
[2018-05-24] MEDS: Clopidogrel Bisulfate 75 MG Tablet PO (09:51)
[2018-05-24] MEDS: Calcium (Elemental) 500 MG Tablet PO (09:51)
[2018-05-24] MEDS: Senna/Docusate Sodium 1 Tablet 2 TABLET PO (09:51)
[2018-05-24] MEDS: Venlafaxine XR 150 MG Capsule PO (09:51)
[2018-05-24] MEDS: buPROPion (XL) 150 MG TABLET.XL PO (09:51)
--- NOTE | 2018-05-24 13:08 | NURSING ---
Called report to Hernandez Flowers.
== END 2018-05-24 13:14 | disposition skilled nursing facility (03) | DRG 57 ==
PROVIDERS: Nurse Practitioner Acute Care; Psychiatry & Neurology Neurology; Student in an Organized Health Care Education/Training Program; Admitting Provider Psychiatry & Neurology Neurology; Family Provider Internal Medicine; PCP Internal Medicine; Referring Provider Psychiatry & Neurology Neurology
DX: I69.322 Dysarthria following cerebral infarction (principal); E87.1 Hypo-osmolality and hyponatremia; R47.01 Aphasia; N30.00 Acute cystitis without hematuria; E78.5 Hyperlipidemia, unspecified; E03.9 Hypothyroidism, unspecified; I10 Essential (primary) hypertension; I25.10 Atherosclerotic heart disease of native coronary artery without angina pectoris; I48.0 Paroxysmal atrial fibrillation; Z95.1 Presence of aortocoronary bypass graft; G47.33 Obstructive sleep apnea (adult) (pediatric); F41.9 Anxiety disorder, unspecified; F32.9 Major depressive disorder, single episode, unspecified; S82.832D Other fracture of upper and lower end of left fibula, subsequent encounter for closed fracture with routine healing; W19.XXXD Unspecified fall, subsequent encounter; Z91.81 History of falling; G62.9 Polyneuropathy, unspecified; R33.9 Retention of urine, unspecified; G31.84 Mild cognitive impairment of uncertain or unknown etiology; M79.7 Fibromyalgia; R26.81 Unsteadiness on feet; R73.03 Prediabetes; I69.391 Dysphagia following cerebral infarction; R13.10 Dysphagia, unspecified; B96.1 Klebsiella pneumoniae [K. pneumoniae] as the cause of diseases classified elsewhere
CPT/HCPCS: 36415; 73521; 73610; 74230; 80048; 80053; 81001; 83735; 84100; 84295; 85025; 87077; 87086; 87088; 87186; 92507; 92526; 92611; 93005; 97110; 97112; 97162; 97166; 97530; 97535; 97802; J7030

== ENCOUNTER 2018-05-24 13:58 | Inpatient (IN) | payer MEDICARE, OTHER, SELFPAY ==
[2018-05-23 12:25] VITALS: BMI 30.4
[2018-05-24 14:53] VITALS: BP 139/82; PULSE 74; RESP 20; TEMP 36; O2SAT 92
--- NOTE | 2018-05-24 14:53 | NURSING ---
PT ARRIVED VIA WC FROM RU @ [id number]
--- NOTE | 2018-05-24 16:05 | NURSING ---
ACCORDING TO REHAB NURSE PT UA POSITIVE YESTERDAY BUT NO TX INITIATED. DR MORRISON UPDATED, NEW ORDER FOR CEFDINIR, AWARE OF PTS ALLERGIES.
[2018-05-24 17:05] VITALS: BMI 27.9
[2018-05-24 17:07] VITALS: BMI 28.0
[2018-05-24] MEDS: Cefdinir 300 MG Capsule PO (17:24)
[2018-05-24] MEDS: ALPRAZolam 0.25 MG Tablet PO (20:19)
--- NOTE | 2018-05-24 20:24 | PCM.HP.STD ---
Problem List (1) Closed left ankle fracture Status: Acute (2) Diabetes mellitus Status: Chronic (3) Sleep apnea Status: Chronic (4) Coronary artery disease Status: Chronic (5) Atrial fibrillation Status: Chronic (6) Depression Status: Chronic (7) Anxiety Status: Chronic (8) Hyperlipidemia Status: Chronic Qualifiers: (9) Hypertension Status: Chronic Qualifiers: (10) Hypothyroidism Status: Chronic (11) CVA (cerebral vascular accident) Status: Acute Qualifiers: Comment: MRI demonstrated an acute infarct in the right thalamus and left parietal region. 01/2017 History of Present Illness Date of Admission: 05/24/18 Chief Complaint: Here for rehabilitation, strengthening, prior to disposition determination. The patient is a 77 year old Female with below past medical history with left ankle fracture, non-operative management, recovering at senior living. 04/29/2018 Slurred speech, left pontine stroke diagnosed by MRI. 05/01/2018 [facility] for rehabilitation. Dysphagia requiring modified diet. 05/24/2018 UA consistent with UTI, urine culture sent, resident treated with Cefdinir 300MG BID x 10 days. 05/24/2018 Admit to TCU with debility, here for rehabilitation, strengthening, prior to disposition determination. Past Medical History Past Medical History (Chronic Problems): Chronic Problems (Last Updated 05/23/18 @ 14:08 by Lance Barnes DO) Diabetes mellitus (Chronic) Sleep apnea (Chronic) Coronary artery disease (Chronic) Atrial fibrillation (Chronic) Depression (Chronic) Slurred speech (Chronic) Hypokalemia (Chronic) Presence of aortocoronary bypass graft (Chronic) CABG X 2 CAN-LAD, SVG-CX 06/11/2014 @ [facility] per Dr. Sutton Atherosclerotic heart disease of [place] coronary artery without angina pectoris (Chronic) Presence of coronary angioplasty implant and graft (Chronic) IVUS left main 06/07/2014, PCI-FAREED Prox & Mid LAD 04/13/2015 Paroxysmal atrial fibrillation (Chronic) Dyspnea on exertion (Chronic) Dizziness (Chronic) Near syncope (Chronic) Stenosis of right carotid artery (Chronic) Right bundle branch block (Chronic) Anxiety (Chronic) Hyperlipidemia (Chronic) Hypertension (Chronic) Hypothyroidism (Chronic) Medical History: Medical History (Last Updated 05/23/18 @ 14:08 by Lance Barnes DO) Hypokalemia (Chronic) E87.6 Atherosclerotic heart disease of [place] coronary artery without angina pectoris (Chronic) I25.10 Paroxysmal atrial fibrillation (Chronic) I48.0 Stenosis of right carotid artery (Chronic) I65.21 Right bundle branch block (Chronic) I45.10 Hyperlipidemia (Chronic) E78.5 Hypertension (Chronic) I10 Hypothyroidism (Chronic) E03.9 CVA (cerebral vascular accident) (Acute) I63.9 MRI demonstrated an acute infarct in the right thalamus and left parietal region. 01/2017 Allergies atorvastatin Allergy (Verified 05/01/18 19:47) Other muscle weakness codeine Allergy (Verified 05/01/18 19:47) Unknown levofloxacin [From Levaquin] Allergy (Verified 05/01/18 19:47) Pain in joints Penicillins Allergy (Verified 05/01/18 19:47) Swelling tongue swells and hives pravastatin Allergy (Verified 05/01/18 19:47) myalgia Sulfa (Sulfonamide Antibiotics) Allergy (Verified 05/01/18 19:47) Swelling tongue swell and hives Home Medications: Ambulatory Orders Medication Instructions Recorded Levothyroxine [Synthroid] 75 mcg PO DAILY 06/07/14 ALPRAZolam [Xanax] 0.25 mg PO QHS 04/29/18 Bupropion HCl [Bupropion Xl] 150 mg PO DAILY 04/29/18 Potassium Chloride [Klor-Con M20] 40 meq PO BID 04/29/18 Venlafaxine XR [Effexor Xr] 150 mg PO DAILY 04/29/18 Aspirin [Aspirin, Baby] 81 mg PO DAILY@0800 05/01/18 clopidogrel 75 mg tablet 75 mg PO DAILY #90 tab 05/18/18 Surgical History: Surgical History (Last Reviewed 05/01/18 @ 13:14 by Moises Angelo MD) Presence of aortocoronary bypass graft (Chronic) Z95.1 CABG X 2 CAN-LAD, SVG-CX 06/11/2014 @ [facility] per Dr. Sutton Presence of coronary angioplasty implant and graft (Chronic) Z95.5 IVUS left main 06/07/2014, PCI-FAREED Prox & Mid LAD 04/13/2015 Surgical History: arthroscopy, knee, coronary bypass surgery, total knee arthroplasty, - - Ankle surgery, kidney surgery. 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 Lives: Custodial Smoking Status: Never smoker Tobacco Use: Non-smoker Alcohol: None Drugs: None - *Family History Maternal Family History: Family History (Last Reviewed 05/01/18 @ 13:14 by Moises Angelo MD) Father Heart disease Sister Cancer Uncle CAD (coronary artery disease) History Items: - - strokers on mothers sides Paternal Family History: Family History (Last Reviewed 05/01/18 @ 13:14 by Moises Angelo MD) Father Heart disease Sister Cancer Uncle CAD (coronary artery disease) History Items: Heart Disease Review of Systems Constitutional: Denies: Chills, Fever, Weight Change HEENT: Denies: Head Aches, Sinus Congestion, Sinus Drainage Cardiovascular: Denies: Chest Pain, Palpitations Respiratory: Denies: Cough, Shortness of breath at rest, Sputum production Gastrointestinal: Denies: Abdominal Pain, Nausea, Vomiting Genitourinary: Denies: Dysuria Musculoskeletal: Denies: Joint Pain, Joint Tenderness Skin: Denies: Rash, Wounds Neurological: Denies: Numbness, Tingling, Focal weakness Psychiatric: Denies: Anxiety, Depression, Homicidal Ideations, Suicidal Ideations Hematologic/ Lymphatic: Denies: Easy Bruising, Easy Bleeding VTE Information - Inpt Only VTE Present on Admission: No VTE Mechan Device Prophylaxis: Knee High DEVIKA Hose VTE Pharm Prophylaxis ordered?: Yes Patient Problems: Active and Suspected Problems (Last Updated 05/23/18 @ 14:08 by Lance Barnes DO) Closed left ankle fracture (Acute) - Physical Exam General: Alert, Oriented x3, Cooperative HEENT: Atraumatic, PERRLA, EOMI, Normocephalic Neck: Supple, No JVD, Negative Carotid Bruits Lungs: Clear to auscultation, Normal air movement Cardiovascular: Regular rate, No murmurs Abdomen: Bowel Sounds Present, Soft, Non Tender Extremities: No edema, Capillary Refill Less than 3 Seconds Skin: No rashes, No breakdown Musculoskeletal: No Tenderness to Palpation of Joints or Extremities Neurological: Cranial nerves II-XII grossly intact Psych/Mental Status: Normal Affect, Appropriate Vital Signs Temp Pulse Resp BP Pulse Ox 96.8 F L 74 20 H 139/82 H 92 05/24/18 14:53 05/24/18 14:53 05/24/18 14:53 05/24/18 14:53 05/24/18 14:53 Oxygen Delivery Method Room Air Weight: 80.995 kg Body Mass Index (BMI) 27.9 Finger Stick Blood Glucose 100 Assessment/Plan All Active Problems (Last Updated 05/23/18 @ 14:08 by Lance Barnes DO) Closed left ankle fracture (Acute) CVA (cerebral vascular accident) (Acute) 77 year old female with below past medical history significant for recent left ankle fracture, hospitalized for stroke, admitted to for rehabilitation, now admitted to TCU with debility, here for rehabilitation, strengthening, prior to disposition determination. Debility - PT/OT. Pain - Tylenol 1000MG Q6H PRN mild pain. Bowel - Miralax 17GM daily, Senna/colace 1 tablet BID, Dulcolax 10MG PO daily PRN. Pneumonia vaccination - Administer Prevnar 13 and/or Pneumovax 23 as necessary. DVT prophylaxis - Lovenox 40MG SC daily. Anxiety - Venlafaxine XR 150MG daily, Xanax 0.25MG QHS, resident stable with [facility] chronic use, GDR clinically contraindicated. Depression - Bupropion 150MG daily. UTI - Cefdinir 300MG Q12H thru 06/03/2018, urine culture pending. Stroke - Aspirin 81MG, Plavix 75MG daily. Hypothyroidism - Levothyroxine 75MCG daily. Hypokalemia - K-Dur 40MEQ BID.
--- NOTE | 2018-05-24 20:28 | HP.PCM_ITS ---
Problem List (1) Closed left ankle fracture Status: Acute (2) Diabetes mellitus Status: Chronic (3) Sleep apnea Status: Chronic (4) Coronary artery disease Status: Chronic (5) Atrial fibrillation Status: Chronic (6) Depression Status: Chronic (7) Anxiety Status: Chronic (8) Hyperlipidemia Status: Chronic Qualifiers: (9) Hypertension Status: Chronic Qualifiers: (10) Hypothyroidism Status: Chronic (11) CVA (cerebral vascular accident) Status: Acute Qualifiers: Comment: MRI demonstrated an acute infarct in the right thalamus and left parietal region. 01/2017 History of Present Illness Date of Admission: 05/24/18 Chief Complaint: Here for rehabilitation, strengthening, prior to disposition determination. The patient is a 77 year old Female with below past medical history with left ankle fracture, non-operative management, recovering at [facility]. 04/29/2018 Slurred speech, left pontine stroke diagnosed by MRI. 05/01/2018 [facility] for rehabilitation. Dysphagia requiring modified diet. 05/24/2018 UA consistent with UTI, urine culture sent, resident treated with Cefdinir 300MG BID x 10 days. 05/24/2018 Admit to TCU with debility, here for rehabilitation, strengthening, prior to disposition determination. Past Medical History Past Medical History (Chronic Problems): Chronic Problems (Last Updated 05/23/18 @ 14:08 by Lance Barnes DO) Diabetes mellitus (Chronic) Sleep apnea (Chronic) Coronary artery disease (Chronic) Atrial fibrillation (Chronic) Depression (Chronic) Slurred speech (Chronic) Hypokalemia (Chronic) Presence of aortocoronary bypass graft (Chronic) CABG X 2 CAN-LAD, SVG-CX 06/11/2014 @ [facility] per Dr. Sutton Atherosclerotic heart disease of [place] coronary artery without angina pectoris (Chronic) Presence of coronary angioplasty implant and graft (Chronic) IVUS left main 06/07/2014, PCI-FAREED Prox & Mid LAD 04/13/2015 Paroxysmal atrial fibrillation (Chronic) Dyspnea on exertion (Chronic) Dizziness (Chronic) Near syncope (Chronic) Stenosis of right carotid artery (Chronic) Right bundle branch block (Chronic) Anxiety (Chronic) Hyperlipidemia (Chronic) Hypertension (Chronic) Hypothyroidism (Chronic) Medical History: Medical History (Last Updated 05/23/18 @ 14:08 by Lance Barnes DO) Hypokalemia (Chronic) E87.6 Atherosclerotic heart disease of [place] coronary artery without angina pectoris (Chronic) I25.10 Paroxysmal atrial fibrillation (Chronic) I48.0 Stenosis of right carotid artery (Chronic) I65.21 Right bundle branch block (Chronic) I45.10 Hyperlipidemia (Chronic) E78.5 Hypertension (Chronic) I10 Hypothyroidism (Chronic) E03.9 CVA (cerebral vascular accident) (Acute) I63.9 MRI demonstrated an acute infarct in the right thalamus and left parietal region. 01/2017 Allergies atorvastatin Allergy (Verified 05/01/18 19:47) Other muscle weakness codeine Allergy (Verified 05/01/18 19:47) Unknown levofloxacin [From Levaquin] Allergy (Verified 05/01/18 19:47) Pain in joints Penicillins Allergy (Verified 05/01/18 19:47) Swelling tongue swells and hives pravastatin Allergy (Verified 05/01/18 19:47) myalgia Sulfa (Sulfonamide Antibiotics) Allergy (Verified 05/01/18 19:47) Swelling tongue swell and hives Home Medications: Ambulatory Orders Medication Instructions Recorded Levothyroxine [Synthroid] 75 mcg PO DAILY 06/07/14 ALPRAZolam [Xanax] 0.25 mg PO QHS 04/29/18 Bupropion HCl [Bupropion Xl] 150 mg PO DAILY 04/29/18 Potassium Chloride [Klor-Con M20] 40 meq PO BID 04/29/18 Venlafaxine XR [Effexor Xr] 150 mg PO DAILY 04/29/18 Aspirin [Aspirin, Baby] 81 mg PO DAILY@0800 05/01/18 clopidogrel 75 mg tablet 75 mg PO DAILY #90 tab 05/18/18 Surgical History: Surgical History (Last Reviewed 05/01/18 @ 13:14 by Moises Angelo MD) Presence of aortocoronary bypass graft (Chronic) Z95.1 CABG X 2 CAN-LAD, SVG-CX 06/11/2014 @ [facility] per Dr. Sutton Presence of coronary angioplasty implant and graft (Chronic) Z95.5 IVUS left main 06/07/2014, PCI-FAREED Prox & Mid LAD 04/13/2015 Surgical History: arthroscopy, knee, coronary bypass surgery, total knee arthroplasty, - - Ankle surgery, kidney surgery. 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 Lives: [facility] Smoking Status: Never smoker Tobacco Use: Non-smoker Alcohol: None Drugs: None - *Family History Maternal Family History: Family History (Last Reviewed 05/01/18 @ 13:14 by Moises Angelo MD) Father Heart disease Sister Cancer Uncle CAD (coronary artery disease) History Items: - - strokers on mothers sides Paternal Family History: Family History (Last Reviewed 05/01/18 @ 13:14 by Moises Angelo MD) Father Heart disease Sister Cancer Uncle CAD (coronary artery disease) History Items: Heart Disease Review of Systems Constitutional: Denies: Chills, Fever, Weight Change HEENT: Denies: Head Aches, Sinus Congestion, Sinus Drainage Cardiovascular: Denies: Chest Pain, Palpitations Respiratory: Denies: Cough, Shortness of breath at rest, Sputum production Gastrointestinal: Denies: Abdominal Pain, Nausea, Vomiting Genitourinary: Denies: Dysuria Musculoskeletal: Denies: Joint Pain, Joint Tenderness Skin: Denies: Rash, Wounds Neurological: Denies: Numbness, Tingling, Focal weakness Psychiatric: Denies: Anxiety, Depression, Homicidal Ideations, Suicidal Ideations Hematologic/ Lymphatic: Denies: Easy Bruising, Easy Bleeding VTE Information - Inpt Only VTE Present on Admission: No VTE Mechan Device Prophylaxis: Knee High DEVIKA Hose VTE Pharm Prophylaxis ordered?: Yes Patient Problems: Active and Suspected Problems (Last Updated 05/23/18 @ 14:08 by Lance Barnes DO) Closed left ankle fracture (Acute) - Physical Exam General: Alert, Oriented x3, Cooperative HEENT: Atraumatic, PERRLA, EOMI, Normocephalic Neck: Supple, No JVD, Negative Carotid Bruits Lungs: Clear to auscultation, Normal air movement Cardiovascular: Regular rate, No murmurs Abdomen: Bowel Sounds Present, Soft, Non Tender Extremities: No edema, Capillary Refill Less than 3 Seconds Skin: No rashes, No breakdown Musculoskeletal: No Tenderness to Palpation of Joints or Extremities Neurological: Cranial nerves II-XII grossly intact Psych/Mental Status: Normal Affect, Appropriate Vital Signs Temp Pulse Resp BP Pulse Ox 96.8 F L 74 20 H 139/82 H 92 05/24/18 14:53 05/24/18 14:53 05/24/18 14:53 05/24/18 14:53 05/24/18 14:53 Oxygen Delivery Method Room Air Weight: 80.995 kg Body Mass Index (BMI) 27.9 Finger Stick Blood Glucose 100 Assessment/Plan All Active Problems (Last Updated 05/23/18 @ 14:08 by Lance Barnes DO) Closed left ankle fracture (Acute) CVA (cerebral vascular accident) (Acute) 77 year old female with below past medical history significant for recent left ankle fracture, hospitalized for stroke, admitted to for rehabilitation, now admitted to TCU with debility, here for rehabilitation, strengthening, prior to disposition determination. * Debility - PT/OT. * Pain - Tylenol 1000MG Q6H PRN mild pain. * Bowel - Miralax 17GM daily, Senna/colace 1 tablet BID, Dulcolax 10MG PO daily PRN. * Pneumonia vaccination - Administer Prevnar 13 and/or Pneumovax 23 as necessary. * DVT prophylaxis - Lovenox 40MG SC daily. * Anxiety - Venlafaxine XR 150MG daily, Xanax 0.25MG QHS, resident stable with [facility] chronic use, GDR clinically contraindicated. * Depression - Bupropion 150MG daily. * UTI - Cefdinir 300MG Q12H thru 06/03/2018, urine culture pending. * Stroke - Aspirin 81MG, Plavix 75MG daily. * Hypothyroidism - Levothyroxine 75MCG daily. * Hypokalemia - K-Dur 40MEQ BID.
[2018-05-25] MEDS: Levothyroxine 75 MCG Tablet PO (05:38)
[2018-05-25] MEDS: Polyethylene Glycol 3350 17 GM PACKET PO (05:38)
[2018-05-25] MEDS: Clopidogrel Bisulfate 75 MG Tablet PO (05:38)
[2018-05-25] MEDS: Cefdinir 300 MG Capsule PO ×2 (05:38→17:14)
[2018-05-25] MEDS: buPROPion (XL) 150 MG TABLET.XL PO (05:38)
[2018-05-25] MEDS: Venlafaxine XR 150 MG Capsule PO (05:38)
[2018-05-25] MEDS: Senna/Docusate Sodium 1 Tablet PO ×2 (05:38→17:15)
[2018-05-25 05:40] LABS: Absolute Lymphocyte Count 1.02 X10^3/ul (0.83-4.51); Absolute Neutrophil Count 5.9 X10^3/uL (2.0-7.7); Basophil# 0.02 X10^3/uL; Basophil% 0.3 % (0-1); Eosinophil# 0.08 X10^3/uL; Hematocrit 37.6 % (37-47); Hemoglobin 12.7 g/dl (12.0-15.0); Lymphocyte # 1.02 X10^3/ul (4.0); Lymphocyte % 12.8 % (19-41); Mean Corp Hgb Conc 33.8 g/gl (32-36); Mean Corpuscular Hgb 32.8 pg (27.0-32.0); Mean Corpuscular Volume 97.2 fL (81-99); Mean Platelet Vol. 9.3 fl (6.2-12.0); Monocyte# 0.95 X10^3/uL; Monocyte% 11.9 % (0-10); Neutrophil # 5.92 X10^3/uL (2.7-7.7); Neutrophil % 73.9 % (47-70); Platelet Count 248 K/mm3 (150-450); RBC Distribution Width CV 13.7 % (11.6-14.6); RBC Distribution Width SD 48.3 fl (35.1-43.9); Red Blood Count 3.87 M/mm3 (4.2-5.4)
[2018-05-25 05:47] LABS: POSITIVE COUNT NO; POSITIVE DIFFERENTIAL NO; POSITIVE MORPHOLOGY NO
[2018-05-25 06:06] LABS: Anion Gap 11 (5-15); BUN 11 mg/dL (7-18); BUN/Creat Ratio 12.1 RATIO (10-20); Chloride 96 mmol/L (98-107); Creatinine, Serum 0.91 mg/dL (0.55-1.02); EST Glomerular Filtration Rate 64 mL/min (>60); Est Glom Filt Rate - Afr Amer 77 mL/min (>60); Estimated Creatinine Clearance 50.35 ml/min; Glucose 75 mg/dL (74-106); Potassium 4.2 mmol/L (3.5-5.1); Sodium Level 132 mmol/L (136-145)
[2018-05-25 06:43] VITALS: O2SAT 90
[2018-05-25] MEDS: Enoxaparin 40 MG/0.4 ML Syringe SC (06:44)
[2018-05-25] MEDS: Aspirin 81 MG TAB.CHEW PO (09:01)
[2018-05-25] MEDS: Tuberculin,Purif.prot.deriv. 50 TU/ML Vial 5 ML ID (09:09)
--- NOTE | 2018-05-25 12:43 | PCM.PN.RX ---
<WilmerRudy mendoza - Last Filed: 05/25/18 12:43> Progress Note - Pharmacy Subjective: TCU Admission Objective: Allergies atorvastatin Allergy (Verified 05/01/18 19:47) Other muscle weakness codeine Allergy (Verified 05/01/18 19:47) Unknown levofloxacin [From Levaquin] Allergy (Verified 05/01/18 19:47) Pain in joints Penicillins Allergy (Verified 05/01/18 19:47) Swelling tongue swells and hives pravastatin Allergy (Verified 05/01/18 19:47) myalgia Sulfa (Sulfonamide Antibiotics) Allergy (Verified 05/01/18 19:47) Swelling tongue swell and hives Current Medications Generic Name Dose Route Start Last Admin Trade Name Freq PRN Reason Stop Dose Admin Acetaminophen 1,000 mg 05/24/18 20:36 Tylenol PO Q6H PRN PRN MILD PAIN (1-3/10) Alprazolam 0.25 mg 05/24/18 22:00 05/24/18 20:19 Xanax PO 0.25 mg QHS MELODY Administration Aspirin 81 mg 05/25/18 08:00 05/25/18 09:01 Aspirin, Baby PO 81 mg DAILY@0800 MELODY Administration Bisacodyl 10 mg 05/24/18 20:37 Dulcolax PO DAILY PRN Constipation Bupropion HCl 150 mg 05/25/18 06:00 05/25/18 05:38 Wellbutrin Xl PO 150 mg DAILY MELODY Administration Cefdinir 300 mg 05/24/18 18:00 05/25/18 05:38 Omnicef [Equiv] PO 06/03/18 18:01 300 mg Q12 MELODY Administration Clopidogrel Bisulfate 75 mg 05/25/18 06:00 05/25/18 05:38 Plavix PO 75 mg DAILY MELODY Administration Enoxaparin Sodium 40 mg 05/25/18 06:00 05/25/18 06:44 Lovenox SC 40 mg DAILY@0600 MELODY Administration Levothyroxine Sodium 75 mcg 05/25/18 06:00 05/25/18 05:38 Synthroid PO 75 mcg DAILY MELODY Administration Polyethylene Glycol 17 gm 05/25/18 06:00 05/25/18 05:38 Miralax PO 17 gm DAILY MELODY Administration Potassium Chloride 40 meq 05/24/18 17:00 05/25/18 09:01 K-Dur PO 40 meq BIDCM MELODY Administration Senna/Docusate Sodium 1 tablet 05/25/18 06:00 05/25/18 05:38 Senokot-S, Yessy-Colace PO 1 tablet BID MELODY Administration Tuberculin PPD 5 tu 06/01/18 10:00 Tubersol, Aplisol, Ppd ID 06/01/18 10:01 X1 ONE Venlafaxine HCl 150 mg 05/25/18 06:00 05/25/18 05:38 Effexor Xr PO 150 mg DAILY MELODY Administration Problem List (Last Updated 05/23/18 @ 14:08 by Lance Barnes DO) Closed left ankle fracture (Acute) Diabetes mellitus (Chronic) Sleep apnea (Chronic) Coronary artery disease (Chronic) Atrial fibrillation (Chronic) Depression (Chronic) Vital Signs Temp Pulse Resp BP Pulse Ox 96.8 F L 74 20 H 139/82 H 90 05/24/18 14:53 05/24/18 14:53 05/24/18 14:53 05/24/18 14:53 05/25/18 06:43 Oxygen Delivery Method Room Air Weight: 80.995 kg Body Mass Index (BMI) 27.9 Finger Stick Blood Glucose 100 Sodium 132 mmol/L (136-145) L 05/25/18 05:05 Potassium 4.2 mmol/L (3.5-5.1) 05/25/18 05:05 Chloride 96 mmol/L (98-107) L 05/25/18 05:05 Carbon Dioxide 25.0 mmol/L (21.0-32.0) 05/25/18 05:05 Anion Gap 11 (5-15) 05/25/18 05:05 BUN 11 mg/dL (7-18) 05/25/18 05:05 Creatinine 0.91 mg/dL (0.55-1.02) 05/25/18 05:05 Est GFR (MDRD) Af Amer 77 mL/min (>60) 05/25/18 05:05 Est GFR (MDRD) Non-Af 64 mL/min (>60) 05/25/18 05:05 BUN/Creatinine Ratio 12.1 RATIO (10-20) 05/25/18 05:05 Glucose 75 mg/dL (74-106) 05/25/18 05:05 Assessment/Plan: 1) Stroke Clopidogrel, ASA. Continue to monitor s/s stroke. 2) Hypothyroidism Levothyroxine daily. Continue to monitor s/s hyper/hypothyroidism. 3) UTI Cefdinir twice daily. Urine cx pending. Continue to monitor s/s infection. 4) DVT PPx Enoxaparin daily. Continue to monitor s/s bleeding/clot. 5) Nutrition KCL twice daily. Continue to monitor electrolytes. Psychotropic Medications: 6) Depression/Anxiety Venlafaxine, alprazolam, bupropion. Continue to monitor s/s depression/anxiety. Potential GDR addressed by physician. Unnecessary Medications: None Bowel Regimen: 7) Senna/s, PEG, prn bisacodyl. Continue to monitor prn medication use, for constipation/diarrhea. Date of Note:: 05/25/18 - Provider Comments Provider responsibility: Provider responsible to enter orders to implement recommendations <Emmanuel Youngblood Chi - Last Filed: 05/25/18 18:08> Progress Note - Pharmacy Subjective: [] Objective: Allergies atorvastatin Allergy (Verified 05/01/18 19:47) Other muscle weakness codeine Allergy (Verified 05/01/18 19:47) Unknown levofloxacin [From Levaquin] Allergy (Verified 05/01/18 19:47) Pain in joints Penicillins Allergy (Verified 05/01/18 19:47) Swelling tongue swells and hives pravastatin Allergy (Verified 05/01/18 19:47) myalgia Sulfa (Sulfonamide Antibiotics) Allergy (Verified 05/01/18 19:47) Swelling tongue swell and hives Current Medications Generic Name Dose Route Start Last Admin Trade Name Freq PRN Reason Stop Dose Admin Acetaminophen 1,000 mg 05/24/18 20:36 Tylenol PO Q6H PRN PRN MILD PAIN (1-3/10) Alprazolam 0.25 mg 05/24/18 22:00 05/24/18 20:19 Xanax PO 0.25 mg QHS MELODY Administration Aspirin 81 mg 05/25/18 08:00 05/25/18 09:01 Aspirin, Baby PO 81 mg DAILY@0800 MELODY Administration Bisacodyl 10 mg 05/24/18 20:37 Dulcolax PO DAILY PRN Constipation Bupropion HCl 150 mg 05/25/18 06:00 05/25/18 05:38 Wellbutrin Xl PO 150 mg DAILY MELODY Administration Cefdinir 300 mg 05/24/18 18:00 05/25/18 17:14 Omnicef [Equiv] PO 06/03/18 18:01 300 mg Q12 MELODY Administration Clopidogrel Bisulfate 75 mg 05/25/18 06:00 05/25/18 05:38 Plavix PO 75 mg DAILY MELODY Administration Enoxaparin Sodium 40 mg 05/25/18 06:00 05/25/18 06:44 Lovenox SC 40 mg DAILY@0600 MELODY Administration Levothyroxine Sodium 75 mcg 05/25/18 06:00 05/25/18 05:38 Synthroid PO 75 mcg DAILY MELODY Administration Polyethylene Glycol 17 gm 05/25/18 06:00 05/25/18 05:38 Miralax PO 17 gm DAILY MELODY Administration Potassium Chloride 40 meq 05/24/18 17:00 05/25/18 17:15 K-Dur PO 40 meq BIDCM MELODY Administration Senna/Docusate Sodium 1 tablet 05/25/18 06:00 05/25/18 17:15 Senokot-S, Yessy-Colace PO 1 tablet BID MELODY Administration Tuberculin PPD 5 tu 06/01/18 10:00 Tubersol, Aplisol, Ppd ID 06/01/18 10:01 X1 ONE Venlafaxine HCl 150 mg 05/25/18 06:00 05/25/18 05:38 Effexor Xr PO 150 mg DAILY MELODY Administration Problem List (Last Updated 05/23/18 @ 14:08 by Lance Barnes DO) Closed left ankle fracture (Acute) Diabetes mellitus (Chronic) Sleep apnea (Chronic) Coronary artery disease (Chronic) Atrial fibrillation (Chronic) Depression (Chronic) Vital Signs Temp Pulse Resp BP Pulse Ox 97.5 F L 84 16 154/89 H 97 05/25/18 16:00 05/25/18 16:00 05/25/18 16:00 05/25/18 16:00 05/25/18 16:00 Oxygen Delivery Method Room Air Weight: 80.995 kg Body Mass Index (BMI) 27.9 Finger Stick Blood Glucose 100 Sodium 132 mmol/L (136-145) L 05/25/18 05:05 Potassium 4.2 mmol/L (3.5-5.1) 05/25/18 05:05 Chloride 96 mmol/L (98-107) L 05/25/18 05:05 Carbon Dioxide 25.0 mmol/L (21.0-32.0) 05/25/18 05:05 Anion Gap 11 (5-15) 05/25/18 05:05 BUN 11 mg/dL (7-18) 05/25/18 05:05 Creatinine 0.91 mg/dL (0.55-1.02) 05/25/18 05:05 Est GFR (MDRD) Af Amer 77 mL/min (>60) 05/25/18 05:05 Est GFR (MDRD) Non-Af 64 mL/min (>60) 05/25/18 05:05 BUN/Creatinine Ratio 12.1 RATIO (10-20) 05/25/18 05:05 Glucose 75 mg/dL (74-106) 05/25/18 05:05 Assessment/Plan: Psychotropic Medications: Unnecessary Medications: Bowel Regimen: - Provider Comments Provider responsibility: Provider responsible to enter orders to implement recommendations Provider Comments to Recommendations by Pharmacy: Agree
[2018-05-25 16:00] VITALS: BP 154/89; PULSE 84; RESP 16; TEMP 36.4; O2SAT 97
[2018-05-25] MEDS: ALPRAZolam 0.25 MG Tablet PO (21:11)
[2018-05-26] MEDS: Venlafaxine XR 150 MG Capsule PO (05:38)
[2018-05-26] MEDS: Levothyroxine 75 MCG Tablet PO (05:38)
[2018-05-26] MEDS: Enoxaparin 40 MG/0.4 ML Syringe SC (05:38)
[2018-05-26] MEDS: Clopidogrel Bisulfate 75 MG Tablet PO (05:38)
[2018-05-26] MEDS: buPROPion (XL) 150 MG TABLET.XL PO (05:38)
[2018-05-26] MEDS: Cefdinir 300 MG Capsule PO ×2 (05:38→17:56)
[2018-05-26] MEDS: Aspirin 81 MG TAB.CHEW PO (10:19)
--- NOTE | 2018-05-26 14:47 | CHAPLAIN ---
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
[2018-05-26 16:00] VITALS: BP 153/93; PULSE 73; RESP 18; TEMP 36.1; O2SAT 94
--- NOTE | 2018-05-26 18:12 | NURSING ---
Dr Youngblood reviewed urine culure&sensitivity results, no new orders continue omnicef as orderd.
[2018-05-26] MEDS: ALPRAZolam 0.25 MG Tablet PO (20:56)
[2018-05-27] MEDS: Enoxaparin 40 MG/0.4 ML Syringe SC (06:16)
[2018-05-27] MEDS: Clopidogrel Bisulfate 75 MG Tablet PO (06:17)
[2018-05-27] MEDS: Cefdinir 300 MG Capsule PO ×2 (06:17→17:12)
[2018-05-27] MEDS: Senna/Docusate Sodium 1 Tablet PO ×2 (06:17→17:12)
[2018-05-27] MEDS: Venlafaxine XR 150 MG Capsule PO (06:17)
[2018-05-27] MEDS: buPROPion (XL) 150 MG TABLET.XL PO (06:17)
[2018-05-27] MEDS: Levothyroxine 75 MCG Tablet PO (06:17)
[2018-05-27 06:40] VITALS: O2SAT 96
[2018-05-27] MEDS: Aspirin 81 MG TAB.CHEW PO (11:00)
--- NOTE | 2018-05-27 13:34 | CASEMGMT ---
Plan of care meeting held. Resident present as well as resident family. No discharge date set at this time. Resident to continue with further care and treatment on the Transitional Care Unit at this time. Resident discharge plan is home with spouse vs. [facility] pending resident level of care. Support given. Will continue to follow. NADIYA Torres, [facility] NURSE
--- NOTE | 2018-05-27 13:45 | MDS.RN ---
Pain interview for dave 05/31/18 completed.
--- NOTE | 2018-05-27 13:53 | CASEMGMT ---
Brief interview for mental status (BIMS) and resident mood interview (PHQ-9) completed on this day. BIMS score 06/20. PHQ-9 score 11/30
[2018-05-27] MEDS: Menthol/Lanolin/Calamine/Znox 113 GM Tube 1 APPLIC TOPICAL ×2 (14:50→21:48)
[2018-05-27 16:00] VITALS: BP 142/87; PULSE 71; RESP 16; TEMP 35.7; O2SAT 95
[2018-05-27 19:26] VITALS: PULSE 60; RESP 18
[2018-05-27] MEDS: ALPRAZolam 0.25 MG Tablet PO (21:47)
[2018-05-28] MEDS: Levothyroxine 75 MCG Tablet PO (06:10)
[2018-05-28] MEDS: Cefdinir 300 MG Capsule PO ×2 (06:10→18:01)
[2018-05-28] MEDS: Enoxaparin 40 MG/0.4 ML Syringe SC (06:10)
[2018-05-28] MEDS: Senna/Docusate Sodium 1 Tablet PO (06:10)
[2018-05-28] MEDS: Venlafaxine XR 150 MG Capsule PO (06:10)
[2018-05-28] MEDS: Clopidogrel Bisulfate 75 MG Tablet PO (06:10)
[2018-05-28] MEDS: buPROPion (XL) 150 MG TABLET.XL PO (06:11)
[2018-05-28] MEDS: Polyethylene Glycol 3350 17 GM PACKET PO (06:14)
[2018-05-28] MEDS: Menthol/Lanolin/Calamine/Znox 113 GM Tube 1 APPLIC TOPICAL ×3 (06:18→21:01)
[2018-05-28 06:50] VITALS: O2SAT 93
[2018-05-28] MEDS: Aspirin 81 MG TAB.CHEW PO (09:35)
[2018-05-28 15:39] VITALS: BP 148/97; PULSE 72; RESP 18; TEMP 36.6; O2SAT 98
[2018-05-28] MEDS: Acetaminophen 500 MG Tablet 1000 MG PO (18:00)
[2018-05-28] MEDS: ALPRAZolam 0.25 MG Tablet PO (21:01)
[2018-05-29] MEDS: Enoxaparin 40 MG/0.4 ML Syringe SC (06:27)
[2018-05-29] MEDS: buPROPion (XL) 150 MG TABLET.XL PO (06:27)
[2018-05-29] MEDS: Venlafaxine XR 150 MG Capsule PO (06:27)
[2018-05-29] MEDS: Cefdinir 300 MG Capsule PO ×2 (06:27→17:35)
[2018-05-29] MEDS: Clopidogrel Bisulfate 75 MG Tablet PO (06:27)
[2018-05-29] MEDS: Levothyroxine 75 MCG Tablet PO (06:27)
[2018-05-29] MEDS: Menthol/Lanolin/Calamine/Znox 113 GM Tube 1 APPLIC TOPICAL ×3 (06:31→22:11)
[2018-05-29 07:28] VITALS: O2SAT 91
[2018-05-29] MEDS: Aspirin 81 MG TAB.CHEW PO (07:41)
[2018-05-29 15:18] VITALS: BP 155/96; PULSE 74; RESP 20; TEMP 35.2; O2SAT 91
[2018-05-29] MEDS: Senna/Docusate Sodium 1 Tablet PO (17:35)
[2018-05-29] MEDS: ALPRAZolam 0.25 MG Tablet PO (22:11)
[2018-05-29] MEDS: MELATONIN 10 MG TABLET PO (22:11)
[2018-05-30] MEDS: Cefdinir 300 MG Capsule PO ×2 (06:32→16:58)
[2018-05-30] MEDS: buPROPion (XL) 150 MG TABLET.XL PO (06:32)
[2018-05-30] MEDS: Venlafaxine XR 150 MG Capsule PO (06:32)
[2018-05-30] MEDS: Polyethylene Glycol 3350 17 GM PACKET PO (06:32)
[2018-05-30] MEDS: Clopidogrel Bisulfate 75 MG Tablet PO (06:32)
[2018-05-30] MEDS: Senna/Docusate Sodium 1 Tablet PO ×2 (06:33→16:58)
[2018-05-30] MEDS: Enoxaparin 40 MG/0.4 ML Syringe SC (06:33)
[2018-05-30] MEDS: Menthol/Lanolin/Calamine/Znox 113 GM Tube 1 APPLIC TOPICAL ×2 (06:33→20:31)
[2018-05-30] MEDS: Levothyroxine 75 MCG Tablet PO (06:33)
[2018-05-30 07:27] VITALS: O2SAT 91
[2018-05-30] MEDS: Aspirin 81 MG TAB.CHEW PO (07:49)
[2018-05-30 16:00] VITALS: BP 135/87; PULSE 73; RESP 18; TEMP 36.6; O2SAT 94
[2018-05-30] MEDS: MELATONIN 10 MG TABLET PO (20:29)
[2018-05-30] MEDS: ALPRAZolam 0.25 MG Tablet PO (20:29)
[2018-05-31] MEDS: Cefdinir 300 MG Capsule PO ×2 (05:54→16:52)
[2018-05-31] MEDS: Enoxaparin 40 MG/0.4 ML Syringe SC (05:54)
[2018-05-31] MEDS: Venlafaxine XR 150 MG Capsule PO (05:54)
[2018-05-31] MEDS: Senna/Docusate Sodium 1 Tablet PO ×2 (05:54→16:51)
[2018-05-31] MEDS: Levothyroxine 75 MCG Tablet PO (05:54)
[2018-05-31] MEDS: Clopidogrel Bisulfate 75 MG Tablet PO (05:54)
[2018-05-31] MEDS: buPROPion (XL) 150 MG TABLET.XL PO (05:55)
[2018-05-31] MEDS: Menthol/Lanolin/Calamine/Znox 113 GM Tube 1 APPLIC TOPICAL ×2 (05:59→20:27)
[2018-05-31] MEDS: Aspirin 81 MG TAB.CHEW PO (07:34)
[2018-05-31 11:12] VITALS: O2SAT 93
[2018-05-31 15:29] VITALS: BP 141/98; PULSE 82; RESP 18; TEMP 36.5; O2SAT 94
[2018-05-31] MEDS: MELATONIN 10 MG TABLET PO (20:25)
[2018-05-31] MEDS: ALPRAZolam 0.25 MG Tablet PO (20:25)
[2018-06-01] MEDS: buPROPion (XL) 150 MG TABLET.XL PO (05:40)
[2018-06-01] MEDS: Venlafaxine XR 150 MG Capsule PO (05:40)
[2018-06-01] MEDS: Levothyroxine 75 MCG Tablet PO (05:41)
[2018-06-01] MEDS: Clopidogrel Bisulfate 75 MG Tablet PO (05:41)
[2018-06-01] MEDS: Cefdinir 300 MG Capsule PO ×2 (05:41→16:32)
[2018-06-01] MEDS: Enoxaparin 40 MG/0.4 ML Syringe SC (05:41)
[2018-06-01] MEDS: Senna/Docusate Sodium 1 Tablet PO ×2 (05:41→16:32)
[2018-06-01] MEDS: Menthol/Lanolin/Calamine/Znox 113 GM Tube 1 APPLIC TOPICAL ×2 (05:44→22:03)
[2018-06-01 05:59] LABS: Absolute Neutrophil Count 3.3 X10^3/uL (2.0-7.7); Basophil# 0.02 X10^3/uL; Basophil% 0.4 % (0-1); Eosinophil# 0.14 X10^3/uL; Eosinophils% 2.6 % (0-5); Hematocrit 38.4 % (37-47); Hemoglobin 12.9 g/dl (12.0-15.0); Lymphocyte % 23.8 % (19-41); Mean Corp Hgb Conc 33.6 g/gl (32-36); Mean Corpuscular Hgb 32.2 pg (27.0-32.0); Mean Corpuscular Volume 95.8 fL (81-99); Mean Platelet Vol. 9.2 fl (6.2-12.0); Monocyte# 0.73 X10^3/uL; Monocyte% 13.3 % (0-10); Neutrophil # 3.27 X10^3/uL (2.7-7.7); Neutrophil % 59.7 % (47-70); Platelet Count 303 K/mm3 (150-450); RBC Distribution Width CV 13.5 % (11.6-14.6); RBC Distribution Width SD 47.3 fl (35.1-43.9); Red Blood Count 4.01 M/mm3 (4.2-5.4); White Blood Count 5.5 K/mm3 (4.4-11.0)
[2018-06-01 06:33] LABS: Anion Gap 8 (5-15); BUN 9 mg/dL (7-18); BUN/Creat Ratio 12.4 RATIO (10-20); Calcium,Total 8.4 mg/dL (8.5-10.1); Chloride 101 mmol/L (98-107); Creatinine, Serum 0.72 mg/dL (0.55-1.02); EST Glomerular Filtration Rate 83 mL/min (>60); Est Glom Filt Rate - Afr Amer 100 mL/min (>60); Estimated Creatinine Clearance 45.09 ml/min; Glucose 79 mg/dL (74-106); Sodium Level 134 mmol/L (136-145)
[2018-06-01 06:37] LABS: POSITIVE COUNT NO; POSITIVE DIFFERENTIAL NO; POSITIVE MORPHOLOGY NO
[2018-06-01] MEDS: Aspirin 81 MG TAB.CHEW PO (08:52)
[2018-06-01] MEDS: Tuberculin,Purif.prot.deriv. 50 TU/ML Vial 5 ML ID (11:24)
--- NOTE | 2018-06-01 13:48 | RAD_ITS ---
STUDY: X-RAY - LEFT ANKLE REASON FOR EXAM: Female, 78 years old. Left ankle pain after fall TECHNIQUE: 3 view(s) of the ankle. COMPARISON: 05/21/2018 FINDINGS: Interval callus formation and healing is noted of distal oblique fibular fracture. Ankle mortise is intact. Development of disuse osteopenia. Remainder is unchanged RAD/Ankle min 3 Views IMPRESSION: As above Electronically Signed: Gilles Helms DO at 14:40 EST Tel , Service support ,
[2018-06-01 15:10] VITALS: BP 149/89; PULSE 71; RESP 18; TEMP 36.6; O2SAT 94
[2018-06-01] MEDS: ALPRAZolam 0.25 MG Tablet PO (22:03)
[2018-06-01] MEDS: MELATONIN 10 MG TABLET PO (22:03)
[2018-06-02] MEDS: buPROPion (XL) 150 MG TABLET.XL PO (05:59)
[2018-06-02] MEDS: Clopidogrel Bisulfate 75 MG Tablet PO (05:59)
[2018-06-02] MEDS: Polyethylene Glycol 3350 17 GM PACKET PO (05:59)
[2018-06-02] MEDS: Levothyroxine 75 MCG Tablet PO (05:59)
[2018-06-02] MEDS: Cefdinir 300 MG Capsule PO ×2 (05:59→16:58)
[2018-06-02] MEDS: Venlafaxine XR 150 MG Capsule PO (05:59)
[2018-06-02] MEDS: Senna/Docusate Sodium 1 Tablet PO ×2 (05:59→16:58)
[2018-06-02] MEDS: Menthol/Lanolin/Calamine/Znox 113 GM Tube 1 APPLIC TOPICAL ×2 (06:00→19:55)
[2018-06-02] MEDS: Enoxaparin 40 MG/0.4 ML Syringe SC (06:00)
[2018-06-02] MEDS: Aspirin 81 MG TAB.CHEW PO (07:39)
[2018-06-02 15:27] VITALS: BP 139/89; PULSE 74; RESP 18; TEMP 35.8; O2SAT 93
--- NOTE | 2018-06-02 18:32 | PCM.PN.ORT ---
Patient Problems: Active and Suspected Problems (Last Updated 05/23/18 @ 14:08 by Lance Barnes DO) Closed left ankle fracture (Acute) - Physical Exam Vital Signs Temp Pulse Resp BP Pulse Ox 96.5 F L 74 18 139/89 H 93 06/02/18 15:27 06/02/18 15:27 06/02/18 15:27 06/02/18 15:27 06/02/18 15:27 Oxygen Delivery Method Room Air Weight: 179 lb 6.4 oz Body Mass Index (BMI) 27.9 Finger Stick Blood Glucose 100 Intake and Output for Last 24 Hours 05/31/18 06/01/18 06/02/18 23:59 23:59 23:59 Intake Total 780 / 780 1080 / 1080 240 / 240 Balance 780 / 780 1080 / 1080 240 / 240 Medical Necessity - Tobacco Use Smoking Status: Never smoker Tobacco Use: Non-smoker Assessment/Plan All Active Problems (Last Updated 05/23/18 @ 14:08 by Lance Barnes DO) Closed left ankle fracture (Acute) CVA (cerebral vascular accident) (Acute)
--- NOTE | 2018-06-02 18:36 | PCM.CONS.GEN ---
Reason for Consult Date of Consultation: 06/02/18 Reason for Consultation: L lateral malleolus fx History of Present Illness: The patient is a 78 year old F who is known to me and being followed for a L lateral malleolus fracture. Pt's course of care complicated by an acute stroke and she was recently transferred from the Acute Rehab unit at [facility] to the TCU. She is currently in a pneumatic cam walker and NWB LLE. ] Past Medical History Past Medical History (Chronic Problems): Chronic Problems (Last Updated 05/23/18 @ 14:08 by Lance Barnes DO) Diabetes mellitus (Chronic) Sleep apnea (Chronic) Coronary artery disease (Chronic) Atrial fibrillation (Chronic) Depression (Chronic) Slurred speech (Chronic) Hypokalemia (Chronic) Presence of aortocoronary bypass graft (Chronic) CABG X 2 CAN-LAD, SVG-CX 06/11/2014 @ [facility] per Dr. Sutton Atherosclerotic heart disease of [place] coronary artery without angina pectoris (Chronic) Presence of coronary angioplasty implant and graft (Chronic) IVUS left main 06/07/2014, PCI-FAREED Prox & Mid LAD 04/13/2015 Paroxysmal atrial fibrillation (Chronic) Dyspnea on exertion (Chronic) Dizziness (Chronic) Near syncope (Chronic) Stenosis of right carotid artery (Chronic) Right bundle branch block (Chronic) Anxiety (Chronic) Hyperlipidemia (Chronic) Hypertension (Chronic) Hypothyroidism (Chronic) Medical History: Medical History (Last Updated 05/23/18 @ 14:08 by Lance Barnes DO) Hypokalemia (Chronic) E87.6 Atherosclerotic heart disease of [place] coronary artery without angina pectoris (Chronic) I25.10 Paroxysmal atrial fibrillation (Chronic) I48.0 Stenosis of right carotid artery (Chronic) I65.21 Right bundle branch block (Chronic) I45.10 Hyperlipidemia (Chronic) E78.5 Hypertension (Chronic) I10 Hypothyroidism (Chronic) E03.9 CVA (cerebral vascular accident) (Acute) I63.9 MRI demonstrated an acute infarct in the right thalamus and left parietal region. 01/2017 Allergies atorvastatin Allergy (Verified 05/01/18 19:47) Other muscle weakness codeine Allergy (Verified 05/01/18 19:47) Unknown levofloxacin [From Levaquin] Allergy (Verified 05/01/18 19:47) Pain in joints Penicillins Allergy (Verified 05/01/18 19:47) Swelling tongue swells and hives pravastatin Allergy (Verified 05/01/18 19:47) myalgia Sulfa (Sulfonamide Antibiotics) Allergy (Verified 05/01/18 19:47) Swelling tongue swell and hives Home Medications: Ambulatory Orders Medication Instructions Recorded Levothyroxine [Synthroid] 75 mcg PO DAILY 06/07/14 ALPRAZolam [Xanax] 0.25 mg PO QHS 04/29/18 Bupropion HCl [Bupropion Xl] 150 mg PO DAILY 04/29/18 Potassium Chloride [Klor-Con M20] 40 meq PO BID 04/29/18 Venlafaxine XR [Effexor Xr] 150 mg PO DAILY 04/29/18 Aspirin [Aspirin, Baby] 81 mg PO DAILY@0800 05/01/18 clopidogrel 75 mg tablet 75 mg PO DAILY #90 tab 05/18/18 Surgical History: Surgical History (Last Reviewed 05/01/18 @ 13:14 by Moises Angelo MD) Presence of aortocoronary bypass graft (Chronic) Z95.1 CABG X 2 CAN-LAD, SVG-CX 06/11/2014 @ [facility] per Dr. Sutton Presence of coronary angioplasty implant and graft (Chronic) Z95.5 IVUS left main 06/07/2014, PCI-FAREED Prox & Mid LAD 04/13/2015 Surgical History: arthroscopy, knee, coronary bypass surgery, total knee arthroplasty, - - Ankle surgery, kidney surgery. Psychiatric History: Anxiety, Depression GUIDE EXCURSION History: No pertinent GUIDE EXCURSION history Lives: Long-Term Smoking Status: Never smoker Tobacco Use: Non-smoker Alcohol: None Drugs: None - *Family History Maternal Family History: Family History (Last Reviewed 05/01/18 @ 13:14 by Moises Angelo MD) Father Heart disease Sister Cancer Uncle CAD (coronary artery disease) History Items: - - strokers on mothers sides Paternal Family History: Family History (Last Reviewed 05/01/18 @ 13:14 by Moises Angelo MD) Father Heart disease Sister Cancer Uncle CAD (coronary artery disease) History Items: Heart Disease Patient Problems: Active and Suspected Problems (Last Updated 05/23/18 @ 14:08 by Lance Barnes DO) Closed left ankle fracture (Acute) Subjective: Pt states she is doing well, has improved in her NWB LLE but still is not strict NWB. Feeling better. Objective: LLE vasc CRF < 3 seconds Neuro: light touch intact Ms: pneumatic cam walker in place Radiographs: 3 views of the left ankle were obtained: minimal healing across fracture noted, disuse ostepenia noted. - Physical Exam General: Alert Vital Signs Temp Pulse Resp BP Pulse Ox 96.5 F L 74 18 139/89 H 93 06/02/18 15:27 06/02/18 15:27 06/02/18 15:27 06/02/18 15:27 06/02/18 15:27 Oxygen Delivery Method Room Air Weight: 179 lb 6.4 oz Body Mass Index (BMI) 27.9 Finger Stick Blood Glucose 100 Intake and Output for Last 24 Hours 05/31/18 06/01/18 06/02/18 23:59 23:59 23:59 Intake Total 780 / 780 1080 / 1080 240 / 240 Balance 780 / 780 1080 / 1080 240 / 240 Assessment/Plan All Active Problems (Last Updated 05/23/18 @ 14:08 by Lance Barnes DO) Closed left ankle fracture (Acute) CVA (cerebral vascular accident) (Acute) 78 yo F w/ nonoperative L lateral malleolus fx, c/b acute stroke shortly after fall -pt evaluated at bedside -labs, studies and notes reviewed -Continue NWB LLE as her fracture is not yet stable for weightbearing, will have physical therapy begin gentle ROM/strengthening exercises out of pneumatic cam walker. PT should be in cam walker except when with physical therapy for these exercises. Will see how she does and hope to advance wbing status after repeat radiographs in 2 weeks. -optimize Vitamin D and Ca++. -t/c bone stimulater and will contact [employer]. -please call with questions.
--- NOTE | 2018-06-02 18:40 | CON.PCM_ITS ---
Reason for Consult Date of Consultation: 06/02/18 Reason for Consultation: L lateral malleolus fx History of Present Illness: The patient is a 78 year old F who is known to me and being followed for a L lateral malleolus fracture. Pt's course of care complicated by an acute stroke and she was recently transferred from the Acute Rehab unit at [facility] to the TCU. She is currently in a pneumatic cam walker and NWB LLE. ] Past Medical History Past Medical History (Chronic Problems): Chronic Problems (Last Updated 05/23/18 @ 14:08 by Lance Barnes DO) Diabetes mellitus (Chronic) Sleep apnea (Chronic) Coronary artery disease (Chronic) Atrial fibrillation (Chronic) Depression (Chronic) Slurred speech (Chronic) Hypokalemia (Chronic) Presence of aortocoronary bypass graft (Chronic) CABG X 2 CAN-LAD, SVG-CX 06/11/2014 @ [facility] per Dr. Sutton Atherosclerotic heart disease of [place] coronary artery without angina pectoris (Chronic) Presence of coronary angioplasty implant and graft (Chronic) IVUS left main 06/07/2014, PCI-FAREED Prox & Mid LAD 04/13/2015 Paroxysmal atrial fibrillation (Chronic) Dyspnea on exertion (Chronic) Dizziness (Chronic) Near syncope (Chronic) Stenosis of right carotid artery (Chronic) Right bundle branch block (Chronic) Anxiety (Chronic) Hyperlipidemia (Chronic) Hypertension (Chronic) Hypothyroidism (Chronic) Medical History: Medical History (Last Updated 05/23/18 @ 14:08 by Lance Barnes DO) Hypokalemia (Chronic) E87.6 Atherosclerotic heart disease of [place] coronary artery without angina pectoris (Chronic) I25.10 Paroxysmal atrial fibrillation (Chronic) I48.0 Stenosis of right carotid artery (Chronic) I65.21 Right bundle branch block (Chronic) I45.10 Hyperlipidemia (Chronic) E78.5 Hypertension (Chronic) I10 Hypothyroidism (Chronic) E03.9 CVA (cerebral vascular accident) (Acute) I63.9 MRI demonstrated an acute infarct in the right thalamus and left parietal region. 01/2017 Allergies atorvastatin Allergy (Verified 05/01/18 19:47) Other muscle weakness codeine Allergy (Verified 05/01/18 19:47) Unknown levofloxacin [From Levaquin] Allergy (Verified 05/01/18 19:47) Pain in joints Penicillins Allergy (Verified 05/01/18 19:47) Swelling tongue swells and hives pravastatin Allergy (Verified 05/01/18 19:47) myalgia Sulfa (Sulfonamide Antibiotics) Allergy (Verified 05/01/18 19:47) Swelling tongue swell and hives Home Medications: Ambulatory Orders Medication Instructions Recorded Levothyroxine [Synthroid] 75 mcg PO DAILY 06/07/14 ALPRAZolam [Xanax] 0.25 mg PO QHS 04/29/18 Bupropion HCl [Bupropion Xl] 150 mg PO DAILY 04/29/18 Potassium Chloride [Klor-Con M20] 40 meq PO BID 04/29/18 Venlafaxine XR [Effexor Xr] 150 mg PO DAILY 04/29/18 Aspirin [Aspirin, Baby] 81 mg PO DAILY@0800 05/01/18 clopidogrel 75 mg tablet 75 mg PO DAILY #90 tab 05/18/18 Surgical History: Surgical History (Last Reviewed 05/01/18 @ 13:14 by Moises Angelo MD) Presence of aortocoronary bypass graft (Chronic) Z95.1 CABG X 2 CAN-LAD, SVG-CX 06/11/2014 @ [facility] per Dr. Sutton Presence of coronary angioplasty implant and graft (Chronic) Z95.5 IVUS left main 06/07/2014, PCI-FAREED Prox & Mid LAD 04/13/2015 Surgical History: arthroscopy, knee, coronary bypass surgery, total knee arthroplasty, - - Ankle surgery, kidney surgery. Psychiatric History: Anxiety, Depression MANAGER PIPELINE History: No pertinent MANAGER PIPELINE history Lives: [facility] Smoking Status: Never smoker Tobacco Use: Non-smoker Alcohol: None Drugs: None - *Family History Maternal Family History: Family History (Last Reviewed 05/01/18 @ 13:14 by Moises Angelo MD) Father Heart disease Sister Cancer Uncle CAD (coronary artery disease) History Items: - - strokers on mothers sides Paternal Family History: Family History (Last Reviewed 05/01/18 @ 13:14 by Moises Angelo MD) Father Heart disease Sister Cancer Uncle CAD (coronary artery disease) History Items: Heart Disease Patient Problems: Active and Suspected Problems (Last Updated 05/23/18 @ 14:08 by Lance Barnes DO) Closed left ankle fracture (Acute) Subjective: Pt states she is doing well, has improved in her NWB LLE but still is not strict NWB. Feeling better. Objective: LLE vasc CRF < 3 seconds Neuro: light touch intact Ms: pneumatic cam walker in place Radiographs: 3 views of the left ankle were obtained: minimal healing across fracture noted, disuse ostepenia noted. - Physical Exam General: Alert Vital Signs Temp Pulse Resp BP Pulse Ox 96.5 F L 74 18 139/89 H 93 06/02/18 15:27 06/02/18 15:27 06/02/18 15:27 06/02/18 15:27 06/02/18 15:27 Oxygen Delivery Method Room Air Weight: 179 lb 6.4 oz Body Mass Index (BMI) 27.9 Finger Stick Blood Glucose 100 Intake and Output for Last 24 Hours 05/31/18 06/01/18 06/02/18 23:59 23:59 23:59 Intake Total 780 / 780 1080 / 1080 240 / 240 Balance 780 / 780 1080 / 1080 240 / 240 Assessment/Plan All Active Problems (Last Updated 05/23/18 @ 14:08 by Lance Barnes DO) Closed left ankle fracture (Acute) CVA (cerebral vascular accident) (Acute) 78 yo F w/ nonoperative L lateral malleolus fx, c/b acute stroke shortly after fall -pt evaluated at bedside -labs, studies and notes reviewed -Continue NWB LLE as her fracture is not yet stable for weightbearing, will have physical therapy begin gentle ROM/strengthening exercises out of pneumatic cam walker. PT should be in cam walker except when with physical therapy for these exercises. Will see how she does and hope to advance wbing status after repeat radiographs in 2 weeks. -optimize Vitamin D and Ca++. -t/c bone stimulater and will contact [employer] (powering [employer]). -please call with questions.
[2018-06-02] MEDS: ALPRAZolam 0.25 MG Tablet PO (19:58)
[2018-06-02] MEDS: MELATONIN 10 MG TABLET PO (19:58)
[2018-06-03] MEDS: Polyethylene Glycol 3350 17 GM PACKET PO (05:45)
[2018-06-03] MEDS: Enoxaparin 40 MG/0.4 ML Syringe SC (05:46)
[2018-06-03] MEDS: Clopidogrel Bisulfate 75 MG Tablet PO (05:47)
[2018-06-03] MEDS: Levothyroxine 75 MCG Tablet PO (05:47)
[2018-06-03] MEDS: Venlafaxine XR 150 MG Capsule PO (05:47)
[2018-06-03] MEDS: buPROPion (XL) 150 MG TABLET.XL PO (05:47)
[2018-06-03] MEDS: Senna/Docusate Sodium 1 Tablet PO ×2 (05:47→16:59)
[2018-06-03] MEDS: Menthol/Lanolin/Calamine/Znox 113 GM Tube 1 APPLIC TOPICAL ×2 (05:47→21:09)
[2018-06-03] MEDS: Cefdinir 300 MG Capsule PO ×2 (05:47→16:59)
[2018-06-03] MEDS: Aspirin 81 MG TAB.CHEW PO (10:29)
[2018-06-03 15:53] VITALS: BP 142/89; PULSE 72; RESP 18; TEMP 35.7; O2SAT 96
--- NOTE | 2018-06-03 15:53 | CHAPLAIN ---
Type of Pastoral Visit ___ Initial Visit _x__ Follow-up Visit ___ On-call Visit ___ General Patient Visit ___ Spiritual Assessment ___ Family Conference ___ Bereavement ___ Rapid Response ___ Code Blue ___ Other (describe below) Pastoral Care Referral From _x__ Patient ___ Family ___ Nurse ___ Physician ___ [employer] Planners ___ Food Service Technician ___ Other (describe below) Sacrament/Intervention _x__ Active listening ___ Anointing ___ Church ___ Bereavement ___ Communion ___ Therese exploration ___ ___ Life review ___ Prayer ___ Reconciliation ___ Sacrament of Sick ___ Supportive presence ___ Wedding ___ Other (describe below) Pastoral Comments spoke with patient about general things after the [employer] game in activity time
[2018-06-03] MEDS: ALPRAZolam 0.25 MG Tablet PO (21:07)
[2018-06-03] MEDS: MELATONIN 10 MG TABLET PO (21:08)
[2018-06-04] MEDS: Venlafaxine XR 150 MG Capsule PO (06:10)
[2018-06-04] MEDS: Levothyroxine 75 MCG Tablet PO (06:11)
[2018-06-04] MEDS: Senna/Docusate Sodium 1 Tablet PO ×2 (06:11→18:18)
[2018-06-04] MEDS: Polyethylene Glycol 3350 17 GM PACKET PO (06:11)
[2018-06-04] MEDS: Menthol/Lanolin/Calamine/Znox 113 GM Tube 1 APPLIC TOPICAL ×2 (06:11→21:41)
[2018-06-04] MEDS: buPROPion (XL) 150 MG TABLET.XL PO (06:11)
[2018-06-04] MEDS: Clopidogrel Bisulfate 75 MG Tablet PO (06:11)
[2018-06-04] MEDS: Enoxaparin 40 MG/0.4 ML Syringe SC (06:11)
[2018-06-04] MEDS: Aspirin 81 MG TAB.CHEW PO (07:50)
--- NOTE | 2018-06-04 12:28 | CASEMGMT ---
Addendum entered by Kasie Cochran 06/04/18 12:59: Reviewed and approved social work student MDS documentation. NADIYA Torres, SCANNING TECH Original Note: Brief interview for mental status (BIMS) and mood (PHQ-9) completed on this day. BIMS score 14/15. PHQ-9 score 12/31. Tamika Stallworth social work student
[2018-06-04 15:14] VITALS: BP 129/78; PULSE 67; RESP 24; TEMP 36.8; O2SAT 93
[2018-06-04] MEDS: MELATONIN 10 MG TABLET PO (21:39)
[2018-06-04] MEDS: ALPRAZolam 0.25 MG Tablet PO (21:40)
[2018-06-05] MEDS: Polyethylene Glycol 3350 17 GM PACKET PO (05:10)
[2018-06-05] MEDS: Enoxaparin 40 MG/0.4 ML Syringe SC (05:15)
[2018-06-05] MEDS: Clopidogrel Bisulfate 75 MG Tablet PO (05:15)
[2018-06-05] MEDS: Senna/Docusate Sodium 1 Tablet PO ×2 (05:15→16:07)
[2018-06-05] MEDS: Levothyroxine 75 MCG Tablet PO (05:15)
[2018-06-05] MEDS: buPROPion (XL) 150 MG TABLET.XL PO (05:15)
[2018-06-05] MEDS: Venlafaxine XR 150 MG Capsule PO (05:15)
[2018-06-05] MEDS: Menthol/Lanolin/Calamine/Znox 113 GM Tube 1 APPLIC TOPICAL ×2 (05:18→20:25)
--- NOTE | 2018-06-05 06:55 | MDS.RN ---
Information for the mds was obtained from review of the clinical record, interview of resident, staff, and direct observation of resident's care.
[2018-06-05] MEDS: Aspirin 81 MG TAB.CHEW PO (08:04)
--- NOTE | 2018-06-05 14:55 | MDS.RN ---
Pain interview for SAUL 06/07/18 completed.
[2018-06-05 15:26] VITALS: BP 138/84; PULSE 76; RESP 20; TEMP 36.2; O2SAT 93
[2018-06-05] MEDS: ALPRAZolam 0.25 MG Tablet PO (20:22)
[2018-06-05] MEDS: MELATONIN 10 MG TABLET PO (20:24)
[2018-06-06] MEDS: Enoxaparin 40 MG/0.4 ML Syringe SC (06:16)
[2018-06-06] MEDS: buPROPion (XL) 150 MG TABLET.XL PO (06:17)
[2018-06-06] MEDS: Levothyroxine 75 MCG Tablet PO (06:17)
[2018-06-06] MEDS: Venlafaxine XR 150 MG Capsule PO (06:17)
[2018-06-06] MEDS: Senna/Docusate Sodium 1 Tablet PO ×2 (06:17→15:59)
[2018-06-06] MEDS: Clopidogrel Bisulfate 75 MG Tablet PO (06:17)
[2018-06-06] MEDS: Menthol/Lanolin/Calamine/Znox 113 GM Tube 1 APPLIC TOPICAL ×2 (06:20→22:24)
[2018-06-06] MEDS: Aspirin 81 MG TAB.CHEW PO (09:11)
[2018-06-06 15:43] VITALS: BP 135/82; PULSE 80; RESP 18; TEMP 36.6; O2SAT 96
--- NOTE | 2018-06-06 18:08 | PCM.PN.ORT ---
Patient Problems: Active and Suspected Problems (Last Updated 05/23/18 @ 14:08 by Lance Barnes DO) Closed left ankle fracture (Acute) Subjective: Pt evaluated at bedside. States she is feeling well and feels that physical therapy is beneficial and she is improving with NWB LLE. Has started ROM with therapy, feels stiff but stable. Would like to go home as she misses her but understands she needs to be here to continue to heal. Denies f/c/n/v/cp/sob/calf pain. Objective: LLE: Vasc: crf < 3 sec Neuro: light touch sensation intact MS: pneumatic cam walker in place Derm: compression bandage in place, c/d/i. - Physical Exam General: Alert, Cooperative Vital Signs Temp Pulse Resp BP Pulse Ox 97.8 F 80 18 135/82 H 96 06/06/18 15:43 06/06/18 15:43 06/06/18 15:43 06/06/18 15:43 06/06/18 15:43 Oxygen Delivery Method Room Air Weight: 179 lb 6.4 oz Body Mass Index (BMI) 27.9 Finger Stick Blood Glucose 100 Intake and Output for Last 24 Hours 06/04/18 06/05/18 06/06/18 23:59 23:59 23:59 Intake Total 420 / 420 820 / 820 240 / 240 Balance 420 / 420 820 / 820 240 / 240 Medical Necessity - Tobacco Use Smoking Status: Never smoker Tobacco Use: Non-smoker Assessment/Plan All Active Problems (Last Updated 05/23/18 @ 14:08 by Lance Barnes DO) Closed left ankle fracture (Acute) CVA (cerebral vascular accident) (Acute) 78 yo F w/ L distal fibular fx, nonoperative care c/b acute stroke, now recovering -PT evaluated at bedside -labs, studies and notes reviewed -Continue with physical therapy as is, will obtain new xrays in 2 weeks for re-evaluation and would like to advance weightbearing at that time pending xrays -pain medications, dvt prophylaxis, bowel regimen per medicine - will see on floor if still here in two weeks, otherwise will need outpatient appt at [facility] for xrays and re-evaluation. -Please call with questions or concerns.
--- NOTE | 2018-06-06 19:38 | NURSING ---
Dr. Márquez in to see patient today, NNO.
[2018-06-06] MEDS: MELATONIN 10 MG TABLET PO (22:22)
[2018-06-06] MEDS: ALPRAZolam 0.25 MG Tablet PO (22:22)
[2018-06-07] MEDS: Venlafaxine XR 150 MG Capsule PO (05:29)
[2018-06-07] MEDS: Menthol/Lanolin/Calamine/Znox 113 GM Tube 1 APPLIC TOPICAL ×2 (05:29→20:21)
[2018-06-07] MEDS: Enoxaparin 40 MG/0.4 ML Syringe SC (05:29)
[2018-06-07] MEDS: Clopidogrel Bisulfate 75 MG Tablet PO (05:30)
[2018-06-07] MEDS: buPROPion (XL) 150 MG TABLET.XL PO (05:30)
[2018-06-07] MEDS: Levothyroxine 75 MCG Tablet PO (05:30)
[2018-06-07] MEDS: Aspirin 81 MG TAB.CHEW PO (09:03)
[2018-06-07 10:00] VITALS: PULSE 65; RESP 18
[2018-06-07 15:42] VITALS: BP 153/88; PULSE 69; RESP 20; TEMP 35.9; O2SAT 93
[2018-06-07] MEDS: ALPRAZolam 0.25 MG Tablet PO (20:21)
[2018-06-07] MEDS: MELATONIN 10 MG TABLET PO (20:21)
[2018-06-08 05:53] LABS: Absolute Lymphocyte Count 1.71 X10^3/ul (0.83-4.51); Absolute Neutrophil Count 3.3 X10^3/uL (2.0-7.7); Basophil# 0.02 X10^3/uL; Basophil% 0.3 % (0-1); Eosinophil# 0.19 X10^3/uL; Eosinophils% 3.2 % (0-5); Hematocrit 39.3 % (37-47); Hemoglobin 13.1 g/dl (12.0-15.0); Lymphocyte # 1.71 X10^3/ul (4.0); Lymphocyte % 28.6 % (19-41); Mean Corp Hgb Conc 33.3 g/gl (32-36); Mean Corpuscular Hgb 32.1 pg (27.0-32.0); Mean Corpuscular Volume 96.3 fL (81-99); Mean Platelet Vol. 9.1 fl (6.2-12.0); Monocyte# 0.77 X10^3/uL; Monocyte% 12.9 % (0-10); Neutrophil # 3.27 X10^3/uL (2.7-7.7); Neutrophil % 54.8 % (47-70); Platelet Count 333 K/mm3 (150-450); RBC Distribution Width CV 13.5 % (11.6-14.6); RBC Distribution Width SD 47.7 fl (35.1-43.9); Red Blood Count 4.08 M/mm3 (4.2-5.4)
[2018-06-08 05:57] LABS: POSITIVE COUNT NO; POSITIVE DIFFERENTIAL NO; POSITIVE MORPHOLOGY NO
[2018-06-08 06:15] LABS: Anion Gap 8 (5-15); BUN 10 mg/dL (7-18); BUN/Creat Ratio 12.1 RATIO (10-20); Calcium,Total 8.3 mg/dL (8.5-10.1); Chloride 102 mmol/L (98-107); Creatinine, Serum 0.83 mg/dL (0.55-1.02); EST Glomerular Filtration Rate 71 mL/min (>60); Est Glom Filt Rate - Afr Amer 86 mL/min (>60); Estimated Creatinine Clearance 54.32 ml/min; Glucose 76 mg/dL (74-106); Potassium 4.4 mmol/L (3.5-5.1); Sodium Level 138 mmol/L (136-145)
[2018-06-08] MEDS: buPROPion (XL) 150 MG TABLET.XL PO (06:48)
[2018-06-08] MEDS: Clopidogrel Bisulfate 75 MG Tablet PO (06:48)
[2018-06-08] MEDS: Venlafaxine XR 150 MG Capsule PO (06:48)
[2018-06-08] MEDS: Levothyroxine 75 MCG Tablet PO (06:48)
[2018-06-08] MEDS: Enoxaparin 40 MG/0.4 ML Syringe SC (06:48)
[2018-06-08] MEDS: Menthol/Lanolin/Calamine/Znox 113 GM Tube 1 APPLIC TOPICAL ×2 (06:52→22:08)
[2018-06-08] MEDS: Aspirin 81 MG TAB.CHEW PO (08:49)
[2018-06-08 08:56] VITALS: PULSE 80; O2SAT 95
[2018-06-08 16:00] VITALS: BP 145/89; PULSE 71; RESP 16; TEMP 36.4; O2SAT 97
[2018-06-08] MEDS: ALPRAZolam 0.25 MG Tablet PO (22:08)
[2018-06-08] MEDS: MELATONIN 10 MG TABLET PO (22:08)
[2018-06-09] MEDS: Menthol/Lanolin/Calamine/Znox 113 GM Tube 1 APPLIC TOPICAL ×2 (05:11→20:05)
[2018-06-09] MEDS: Venlafaxine XR 150 MG Capsule PO (05:12)
[2018-06-09] MEDS: Clopidogrel Bisulfate 75 MG Tablet PO (05:12)
[2018-06-09] MEDS: Levothyroxine 75 MCG Tablet PO (05:12)
[2018-06-09] MEDS: buPROPion (XL) 150 MG TABLET.XL PO (05:12)
[2018-06-09] MEDS: Senna/Docusate Sodium 1 Tablet PO ×2 (05:12→16:46)
[2018-06-09] MEDS: Enoxaparin 40 MG/0.4 ML Syringe SC (05:12)
[2018-06-09] MEDS: Aspirin 81 MG TAB.CHEW PO (07:40)
[2018-06-09 15:08] VITALS: BP 129/81; PULSE 70; RESP 18; TEMP 35.6; O2SAT 93
[2018-06-09] MEDS: ALPRAZolam 0.25 MG Tablet PO (20:02)
[2018-06-09] MEDS: MELATONIN 10 MG TABLET PO (20:02)
[2018-06-10] MEDS: Senna/Docusate Sodium 1 Tablet PO ×2 (05:02→16:57)
[2018-06-10] MEDS: buPROPion (XL) 150 MG TABLET.XL PO (05:02)
[2018-06-10] MEDS: Venlafaxine XR 150 MG Capsule PO (05:02)
[2018-06-10] MEDS: Enoxaparin 40 MG/0.4 ML Syringe SC (05:02)
[2018-06-10] MEDS: Levothyroxine 75 MCG Tablet PO (05:02)
[2018-06-10] MEDS: Menthol/Lanolin/Calamine/Znox 113 GM Tube 1 APPLIC TOPICAL ×2 (05:02→20:04)
[2018-06-10] MEDS: Clopidogrel Bisulfate 75 MG Tablet PO (05:02)
[2018-06-10] MEDS: Aspirin 81 MG TAB.CHEW PO (08:07)
[2018-06-10 15:30] VITALS: BP 150/86; PULSE 75; RESP 18; TEMP 36.2; O2SAT 95
[2018-06-10] MEDS: ALPRAZolam 0.25 MG Tablet PO (19:58)
[2018-06-10] MEDS: MELATONIN 10 MG TABLET PO (20:03)
[2018-06-11] MEDS: Clopidogrel Bisulfate 75 MG Tablet PO (05:16)
[2018-06-11] MEDS: Enoxaparin 40 MG/0.4 ML Syringe SC (05:16)
[2018-06-11] MEDS: Venlafaxine XR 150 MG Capsule PO (05:16)
[2018-06-11] MEDS: Levothyroxine 75 MCG Tablet PO (05:16)
[2018-06-11] MEDS: Senna/Docusate Sodium 1 Tablet PO ×2 (05:16→16:56)
[2018-06-11] MEDS: buPROPion (XL) 150 MG TABLET.XL PO (05:16)
[2018-06-11] MEDS: Menthol/Lanolin/Calamine/Znox 113 GM Tube 1 APPLIC TOPICAL ×2 (05:23→20:05)
[2018-06-11] MEDS: Aspirin 81 MG TAB.CHEW PO (07:34)
[2018-06-11 15:23] VITALS: BP 150/81; PULSE 76; RESP 18; TEMP 35.4; O2SAT 94
[2018-06-11] MEDS: ALPRAZolam 0.25 MG Tablet PO (20:03)
[2018-06-11] MEDS: MELATONIN 10 MG TABLET PO (20:03)
[2018-06-12] MEDS: Senna/Docusate Sodium 1 Tablet PO ×2 (05:02→17:01)
[2018-06-12] MEDS: Enoxaparin 40 MG/0.4 ML Syringe SC (05:03)
[2018-06-12] MEDS: Levothyroxine 75 MCG Tablet PO (05:03)
[2018-06-12] MEDS: buPROPion (XL) 150 MG TABLET.XL PO (05:03)
[2018-06-12] MEDS: Venlafaxine XR 150 MG Capsule PO (05:03)
[2018-06-12] MEDS: Clopidogrel Bisulfate 75 MG Tablet PO (05:03)
[2018-06-12] MEDS: Menthol/Lanolin/Calamine/Znox 113 GM Tube 1 APPLIC TOPICAL ×2 (05:13→21:35)
[2018-06-12] MEDS: Aspirin 81 MG TAB.CHEW PO (09:42)
[2018-06-12 15:34] VITALS: BP 154/97; PULSE 72; RESP 20; TEMP 36.1; O2SAT 95
[2018-06-12] MEDS: ALPRAZolam 0.25 MG Tablet PO (21:36)
[2018-06-12] MEDS: MELATONIN 10 MG TABLET PO (21:36)
[2018-06-13] MEDS: buPROPion (XL) 150 MG TABLET.XL PO (06:00)
[2018-06-13] MEDS: Levothyroxine 75 MCG Tablet PO (06:00)
[2018-06-13] MEDS: Enoxaparin 40 MG/0.4 ML Syringe SC (06:00)
[2018-06-13] MEDS: Clopidogrel Bisulfate 75 MG Tablet PO (06:00)
[2018-06-13] MEDS: Venlafaxine XR 150 MG Capsule PO (06:00)
[2018-06-13] MEDS: Menthol/Lanolin/Calamine/Znox 113 GM Tube 1 APPLIC TOPICAL ×2 (06:01→21:36)
[2018-06-13] MEDS: Aspirin 81 MG TAB.CHEW PO (08:13)
--- NOTE | 2018-06-13 08:52 | NURSING ---
pt daughter picked up for OPAL today.
[2018-06-13 16:00] VITALS: BP 163/96; PULSE 73; RESP 18; TEMP 36.2; O2SAT 94
[2018-06-13] MEDS: Senna/Docusate Sodium 1 Tablet PO (17:12)
[2018-06-13 17:30] VITALS: PULSE 78; RESP 18; O2SAT 94
[2018-06-13] MEDS: ALPRAZolam 0.25 MG Tablet PO (21:36)
[2018-06-13] MEDS: MELATONIN 10 MG TABLET PO (21:36)
[2018-06-14] MEDS: Polyethylene Glycol 3350 17 GM PACKET PO (04:54)
[2018-06-14] MEDS: Venlafaxine XR 150 MG Capsule PO (04:54)
[2018-06-14] MEDS: buPROPion (XL) 150 MG TABLET.XL PO (04:54)
[2018-06-14] MEDS: Senna/Docusate Sodium 1 Tablet PO (04:54)
[2018-06-14] MEDS: Clopidogrel Bisulfate 75 MG Tablet PO (04:54)
[2018-06-14] MEDS: Enoxaparin 40 MG/0.4 ML Syringe SC (04:54)
[2018-06-14] MEDS: Levothyroxine 75 MCG Tablet PO (04:54)
[2018-06-14] MEDS: Menthol/Lanolin/Calamine/Znox 113 GM Tube 1 APPLIC TOPICAL ×2 (05:02→21:26)
[2018-06-14 06:36] VITALS: BP 133/69; PULSE 81
[2018-06-14] MEDS: Aspirin 81 MG TAB.CHEW PO (07:59)
[2018-06-14 08:02] VITALS: PULSE 69; RESP 16; O2SAT 96
[2018-06-14 15:42] VITALS: BP 142/84; PULSE 74; RESP 18; TEMP 36.7; O2SAT 95
[2018-06-14] MEDS: ALPRAZolam 0.25 MG Tablet PO (21:25)
[2018-06-14] MEDS: MELATONIN 10 MG TABLET PO (21:25)
[2018-06-15] MEDS: Venlafaxine XR 150 MG Capsule PO (04:28)
[2018-06-15] MEDS: Polyethylene Glycol 3350 17 GM PACKET PO (04:28)
[2018-06-15] MEDS: Senna/Docusate Sodium 1 Tablet PO ×2 (04:28→16:41)
[2018-06-15] MEDS: buPROPion (XL) 150 MG TABLET.XL PO (04:28)
[2018-06-15] MEDS: Enoxaparin 40 MG/0.4 ML Syringe SC (04:28)
[2018-06-15] MEDS: Clopidogrel Bisulfate 75 MG Tablet PO (04:28)
[2018-06-15] MEDS: Levothyroxine 75 MCG Tablet PO (04:28)
[2018-06-15] MEDS: Menthol/Lanolin/Calamine/Znox 113 GM Tube 1 APPLIC TOPICAL ×2 (04:33→20:59)
[2018-06-15 05:33] LABS: Mucous, Urine 0 SEEN /hpf (<or=2+); Red Blood Cells-Urine 0 SEEN /hpf (0-5)
[2018-06-15 05:37] LABS: Absolute Lymphocyte Count 1.28 X10^3/ul (0.83-4.51); Basophil# 0.04 X10^3/uL; Basophil% 0.8 % (0-1); Eosinophil# 0.18 X10^3/uL; Eosinophils% 3.5 % (0-5); Hemoglobin 13.1 g/dl (12.0-15.0); Lymphocyte # 1.28 X10^3/ul (4.0); Lymphocyte % 24.9 % (19-41); Mean Corp Hgb Conc 33.6 g/gl (32-36); Mean Corpuscular Hgb 32.7 pg (27.0-32.0); Mean Corpuscular Volume 97.3 fL (81-99); Mean Platelet Vol. 9.2 fl (6.2-12.0); Monocyte# 0.66 X10^3/uL; Monocyte% 12.8 % (0-10); Neutrophil # 2.96 X10^3/uL (2.7-7.7); Neutrophil % 57.6 % (47-70); Platelet Count 331 K/mm3 (150-450); RBC Distribution Width CV 13.4 % (11.6-14.6); RBC Distribution Width SD 46.5 fl (35.1-43.9); Red Blood Count 4.01 M/mm3 (4.2-5.4); White Blood Count 5.1 K/mm3 (4.4-11.0)
[2018-06-15 05:44] LABS: POSITIVE COUNT NO; POSITIVE DIFFERENTIAL NO; POSITIVE MORPHOLOGY NO
[2018-06-15 05:59] LABS: Anion Gap 10 (5-15); BUN 12 mg/dL (7-18); BUN/Creat Ratio 15.6 RATIO (10-20); Calcium,Total 8.2 mg/dL (8.5-10.1); Chloride 102 mmol/L (98-107); Creatinine, Serum 0.77 mg/dL (0.55-1.02); EST Glomerular Filtration Rate 77 mL/min (>60); Est Glom Filt Rate - Afr Amer 93 mL/min (>60); Estimated Creatinine Clearance 45.09 ml/min; Glucose 92 mg/dL (74-106); Sodium Level 137 mmol/L (136-145)
[2018-06-15 06:04] LABS: Color, Urine Yellow (Yellow); Glucose, Dipstick Normal (Normal); Ketone-Dipstick Negative (Negative); Leukocyte Esterase-Dipstick 100 /ul (Negative); Nitrite-Dipstick Positive (Negative); Occult Blood-Urine Negative /ul (Negative); Protein-Dipstick Negative (Negative); Specific Gravity, Urine 1.025 (1.002-1.030); Urine Bilirubin Dipstick Negative (Negative); Urine Clarity Sl. Cloudy (Clear); Urine Urobilinogen Normal (Normal)
[2018-06-15 06:11] LABS: Bacteria 3+ /hpf (None Seen); Squamous Epithelial Cells - UA 0-5 SEEN /hpf (5-10); White Blood Cells 5-10 SEEN /hpf (0-5)
--- NOTE | 2018-06-15 08:10 | NURSING ---
Dr. Youngblood reviewed urinalysis results, NO for macrobid 100mg PO BID x 7 days. Patient updated.
[2018-06-15] MEDS: Nitrofurantoin Macrocrystals 100 MG Capsule PO ×2 (10:13→16:41)
[2018-06-15] MEDS: Aspirin 81 MG TAB.CHEW PO (10:13)
[2018-06-15 15:26] VITALS: BP 166/94; PULSE 51; RESP 18; TEMP 36.2; O2SAT 94
[2018-06-15 17:39] VITALS: BP 140/89
[2018-06-15] MEDS: ALPRAZolam 0.25 MG Tablet PO (20:55)
[2018-06-15] MEDS: MELATONIN 10 MG TABLET PO (20:56)
[2018-06-16] MEDS: Senna/Docusate Sodium 1 Tablet PO ×2 (05:43→17:08)
[2018-06-16] MEDS: Enoxaparin 40 MG/0.4 ML Syringe SC (05:44)
[2018-06-16] MEDS: Venlafaxine XR 150 MG Capsule PO (05:44)
[2018-06-16] MEDS: Clopidogrel Bisulfate 75 MG Tablet PO (05:44)
[2018-06-16] MEDS: Levothyroxine 75 MCG Tablet PO (05:44)
[2018-06-16] MEDS: buPROPion (XL) 150 MG TABLET.XL PO (05:45)
[2018-06-16] MEDS: Menthol/Lanolin/Calamine/Znox 113 GM Tube 1 APPLIC TOPICAL ×2 (05:47→20:59)
[2018-06-16] MEDS: Aspirin 81 MG TAB.CHEW PO (09:18)
[2018-06-16] MEDS: Nitrofurantoin Macrocrystals 100 MG Capsule PO ×2 (09:18→17:08)
[2018-06-16 15:17] VITALS: BP 122/75; PULSE 73; RESP 18; TEMP 35.4; O2SAT 93
[2018-06-16] MEDS: ALPRAZolam 0.25 MG Tablet PO (20:55)
[2018-06-16] MEDS: MELATONIN 10 MG TABLET PO (21:50)
[2018-06-17] MEDS: Levothyroxine 75 MCG Tablet PO (05:12)
[2018-06-17] MEDS: Clopidogrel Bisulfate 75 MG Tablet PO (05:12)
[2018-06-17] MEDS: Enoxaparin 40 MG/0.4 ML Syringe SC (05:12)
[2018-06-17] MEDS: buPROPion (XL) 150 MG TABLET.XL PO (05:12)
[2018-06-17] MEDS: Senna/Docusate Sodium 1 Tablet PO ×2 (05:12→16:47)
[2018-06-17] MEDS: Venlafaxine XR 150 MG Capsule PO (05:12)
[2018-06-17] MEDS: Polyethylene Glycol 3350 17 GM PACKET PO (05:12)
[2018-06-17] MEDS: Menthol/Lanolin/Calamine/Znox 113 GM Tube 1 APPLIC TOPICAL ×2 (05:17→21:49)
[2018-06-17] MEDS: Aspirin 81 MG TAB.CHEW PO (07:46)
[2018-06-17] MEDS: Nitrofurantoin Macrocrystals 100 MG Capsule PO ×2 (07:46→16:47)
--- NOTE | 2018-06-17 12:38 | MDS.RN ---
Information for the mds was obtained from review of the clinical record, interview of resident, staff, and direct observation of resident's care.
[2018-06-17 15:37] VITALS: BP 136/85; PULSE 72; RESP 20; TEMP 35.9; O2SAT 92
[2018-06-17] MEDS: ALPRAZolam 0.25 MG Tablet PO (21:49)
[2018-06-17] MEDS: MELATONIN 10 MG TABLET PO (21:49)
[2018-06-18] MEDS: Clopidogrel Bisulfate 75 MG Tablet PO (05:33)
[2018-06-18] MEDS: buPROPion (XL) 150 MG TABLET.XL PO (05:33)
[2018-06-18] MEDS: Enoxaparin 40 MG/0.4 ML Syringe SC (05:33)
[2018-06-18] MEDS: Levothyroxine 75 MCG Tablet PO (05:33)
[2018-06-18] MEDS: Venlafaxine XR 150 MG Capsule PO (05:33)
[2018-06-18] MEDS: Menthol/Lanolin/Calamine/Znox 113 GM Tube 1 APPLIC TOPICAL ×2 (05:36→21:35)
[2018-06-18] MEDS: Nitrofurantoin Macrocrystals 100 MG Capsule PO ×2 (08:09→16:43)
[2018-06-18] MEDS: Aspirin 81 MG TAB.CHEW PO (08:10)
--- NOTE | 2018-06-18 13:00 | RAD_ITS ---
STUDY: SWALLOWING STUDY REASON FOR EXAM: Female, 78 years old. Dysphagia. Prior CVA. TECHNIQUE: The examination was performed with Speech Pathology in attendance. Under fluoroscopic observation, the patient ingested thin barium, thick barium, barium pudding, and barium coated cracker. FLUOROSCOPY TIME: 2:37 minutes/seconds. 3365 spot images were obtained. RADIOLOGIST INVOLVEMENT: Radiologist was present and providing direct supervision. COMPARISON: Comparison is made with prior examination dated May 21, 2018. FINDINGS: The following was observed during swallowing of the various mixtures of barium: Thin Barium: Silent aspiration with ingestion of thin liquids. Thick Barium: There was no evidence of aspiration or laryngeal penetration. Barium Pudding: There was no evidence of aspiration or laryngeal penetration. Barium Coated Cracker: There was no evidence of aspiration or laryngeal penetration. RAD/Swallowing Function w/Video IMPRESSION: Sign of aspiration with ingestion of thin liquids. The swallow study findings were discussed with the patient by the speech pathologist at the conclusion of the examination. Please see speech pathology report for more information and recommendations. Electronically Signed: Panfilo Gonsalves MD at 15:08 EST Tel [phone], Service support ,
--- NOTE | 2018-06-18 13:00 | SP.MBSS_ITS ---
PRIMARY / SECONDARY DIAGNOSIS: dysphagia (R13.12) REFERRING PHYSICIAN: Dr. Youngblood CURRENT DIET: mechanical soft textures/nectar thickened liquids DENTITION: WFL MENTAL STATUS: sufficient for participation RESPIRATORY STATUS: patient oxygenating on room air PREVIOUS MODIFIED BARIUM SWALLOW STUDY: 05/21/2018 MBS revealed moderate oropharyngeal dysphagia (R13.12) w/ puree/honey diet recommended w/ trials of mechanical soft and NTL via teaspoon under SALES ADMINISTRATION SPECIALIST supervision 05/04/2018 MBS revealed moderate to severe oropharyngeal dysphagia (R13.12) with SILENT aspiration of thin, nectar and honey thickened liquids; pureed texture/pudding thickened liquid diet recommended 01/30/2017 MBS revealed mild oral dysphagia (R13.11) without penetration or aspiration. 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 Moderate dysarthria with shallow breath support and mild hypophonia; horse vocal quality. ADDITIONAL OBJECTIVE ASSESSMENT RESULTS: 04/30/2018 MRI revealed tiny acute infarcts involving the left paramedian javi and medulla with chronic white matter ischemic changes of the javi; prominent perivascular spaces (PVS) involving the basal ganglia; abnormal signal in the right thalamus possibly related to previous ischemia; multiple small areas of encephalomalacia in the cerebellum and probably represent small old infarcts. MEDICAL HISTORY: Prior cerebral vascular accident involving the right thalamus and left parietal region (01/2017), dyspnea on exertion, atherosclerotic heart disease of [place] coronary artery without angina pectoris, status post aortocoronary bypass graft and coronary angioplasty implant and graft, stenosis of right carotid artery, right bundle branch block, paroxysmal atrial fibrillation, hypertension, hyperlipidemia, hypothyroidism, hypokalemia, dizziness, near syncope, anxiety. STUDY FINDINGS: Patient participated in a Modified Barium Swallow (MBS) study on 06/18/2018. Dr. Gonsalves was the radiologist present for this evaluation. This study was recorded in the lateral view and images were sent to PACs for storage. The following consistencies were presented to this patient for analysis of oropharyngeal swallow function: thin liquid, nectar thickened liquids, pudding, and a regular texture K[place] shortbread cookie. Results of the MBS are as follows: PENETRATION / ASPIRATION SCALE (FIGUEREDO): 1 = does not enter airway 2 = enters airway/above vocal folds/ejected 3 = enters airway/above vocal folds/not ejected 4 = enters airway/contacts vocal folds/ejected 5 = enters airway/contacts vocal folds/not ejected 6 = enters airway/below vocal folds/ejected 7 = enters airway/below vocal folds/not ejected despite effort 8 = enters airway/below vocal folds/no effort VIDEOFLOROSCOPIC SCALE SCORE (FIGUEREDO): Grade I = aspiration of material that has penetrated into the laryngeal vestibule, intact cough reflex Grade II = aspiration < 10 % of the bolus, intact cough reflex Grade III = aspiration of < 10 % of the bolus, reduced cough reflex or aspiration of > 10 % of the bolus, intact cough reflex Grade IV = aspiration of > 10 % of the bolus, reduced cough reflex PENETRATION / ASPIRATION SCALE SCORE WITH VIDEOFLOROSCOPIC SCALE SCORE: 1. Thin liquid via teaspoon: 8 = enters airway/below vocal folds/no effort, Grade III 2. Thin liquid via teaspoon w/ chin tuck: 8 = enters airway/below vocal folds/no effort, Grade IV 3. [place] thickened liquid via teaspoon: 1 = does not enter airway 4. [place] thickened liquid via cup: 1 = does not enter airway 5. [place] thickened liquid via cup: 1 = does not enter airway 6. [place] thickened liquid via cup: 1 = does not enter airway 7. [place] = does not enter airway 9. ? Kelli Doone Shortbread cookie: 1 = does not enter airway 10. Thin thickened liquid via cup: 8 = enters airway/below vocal folds/no effort, Grade III IMPRESSION: DIAGNOSIS: moderate oropharyngeal dysphagia (R13.12) ORAL PHASE CHARACTERIZED BY: LABIAL SEAL: no labial escape TONGUE CONTROL DURING BOLUS MANIPULATION: occasional escape to lateral buccal cavity/floor of mouth BOLUS PREPARATION / MASTICATION: slow prolonged mastication BOLUS TRANSPORT / LINGUAL MOTION: slowed lingual motion ORAL RESIDUE: trace residue lining oral structures PHARYNGEAL PHASE CHARACTERIZED BY: INITIATION OF PHARYNGEAL SWALLOW: bolus head in pyriforms at first hyoid excursion; improved location as study progressed; timelier onset via cup vs. spoon SOFT PALATE ELEVATION: no bolus between soft palate and pharyngeal wall LARYNGEAL ELEVATION: complete superior movement of thyroid cartilage with complete approximation of arytenoids cartilage to epiglottic petiole ANTERIOR HYOID EXCURSION: partial anterior movement EPIGLOTTIC MOVEMENT: complete epiglottic inversion LARYNGEAL VESTIBULE CLOSURE AT HEIGHT OF SWALLOW: incomplete laryngeal vestibule closure with narrow column of air/contrast in laryngeal vestibule PHARYNGEAL STRIPPING WAVE: pharyngeal stripping wave present / complete PHARYNGOESOPHAGEAL SEGMENT OPENING: partial distension and partial duration; partial obstruction of flow TONGUE BASE RETRACTION: trace column of contrast between tongue base and posterior pharyngeal wall PHARYNGEAL RESIDUE: collection of residue within or on pharyngeal structures (collection in pyriforms post deglutition of solids, cleared w/ cued double swallow) ESOPHAGEAL PHASE CHARACTERIZED BY: ESOPHAGEAL BOLUS CLEARANCE IN THE UPRIGHT POSITION: trace contrast lining the esophagus COMPENSATORY STRATEGIES TRIALED: * Chin tuck: not effective * Liquid consumption via spoon: not effective * Limiting liquid bolus volume by cup (small sips): effective * Double swallow (dry swallow) w/ solids: effective to clear vallecular stasis INTERPRETATION OF RESULTS: This patient presents with moderate oropharyngeal dysphagia (R13.12) secondary to an 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 Oral phase was marked by prolonged oral preparatory time with mastication of solids and premature pharyngeal bolus entry appreciated, worse w/ liquids presented via teaspoon and improved as study progressed. Pharyngeal phase is marked by delayed pharyngeal swallow onset w/ NTL presented via teaspoon spilling to the level of the pyriforms prior to swallow initiation. Penetration/aspiration occurred w/ thin liquids via tsp/cup and NTL vis teaspoon with and without chin tuck d/t delayed airway closure. Improved onset w/ NTL via cup (bolus head only reaching the posterior laryngeal surface of the epiglottis when pharyngeal swallow was initiated. All aspiration events were SILENT. Use of a chin tuck posture was NOT effective to improve airway closure/eliminate penetration/aspiration. Vallecular residue retention appreciated w/ solids, ameliorated w/ use of dry/double swallow. A cricopharyngeal bar was noted at the C-6/C-7 level, no impact of swallow function/bolus clearance. Trace contrast lined the esophagus post deglutition. DIET TEXTURE RECOMMENDATIONS: Will recommend a mechanical soft texture, nectar thickened liquid diet. COMPENSATORY STRATEGIES RECOMMENDED: Supervision with assistance as needed, small sips via cup, no straws, double swallow as needed to clear pharyngeal residue, small sips viA cup, slow rate of intake seated upright at 90 degrees during PO intake, remain upright for 30-60 minutes post meal (GERD precaution), medications crushed with purees. ADDITIONAL RECOMMENDATIONS: * Discontinue liquid consumption via teaspoon * Recommend a repeat MBS in when clinically appropriate to assess for upgrade to thin liquids, as patient is known to SILENTLY ASPIRATE * Continued participation in the [place] Free Water Protocol is recommended. * This patient continues to require intensive skilled speech-language intervention targeting: diet texture/liquid consistency management, training and implementation of recommended compensatory strategies, training and implementation of oropharyngeal strengthening exercises to facilitate improved oropharyngeal swallow function to improve/reduce aspiration risk, ongoing education re: implementation of the FFWP, patient/caregiver training targeting meal preparation/thickened liquid preparation if unable to advance to baseline diet textures prior to discharge ADDITIONAL COMMENTS/RECOMMENDATIONS: Results and recommendations were discussed with the Patient immediately following MBS completion, with the Patient verbalizing understanding and agreement with all recommendations and education provided. Kristie MOLINA notified of compensatory strategies changes & dry erase board in room updated to reflect current recommendations. IMAGE COUNT: [id number]
--- NOTE | 2018-06-18 15:57 | CASEMGMT ---
Social Work Spoke with resident and resident family. This high school social science teacher communicating that discharge date has been set for 07/01/18 and that team is recommending for resident to discharge to an extended care facility for further care. Resident and resident family agreeable to this and voicing that first choice would be the [facility]. This high school social science teacher voicing to plan to make referral closer to discharge date. Support given. Transfer form initiated. Proposed discharge date: 07/01/18 PLAN: Discharge to the [facility]. NADIYA Renae, CATALOG SPECIALIST
[2018-06-18 16:00] VITALS: BP 139/84; PULSE 68; RESP 20; TEMP 36.9; O2SAT 93
[2018-06-18] MEDS: Senna/Docusate Sodium 1 Tablet PO (16:43)
[2018-06-18] MEDS: ALPRAZolam 0.25 MG Tablet PO (21:34)
[2018-06-18] MEDS: MELATONIN 10 MG TABLET PO (21:35)
[2018-06-19] MEDS: Menthol/Lanolin/Calamine/Znox 113 GM Tube 1 APPLIC TOPICAL ×2 (04:50→20:56)
[2018-06-19] MEDS: Levothyroxine 75 MCG Tablet PO (04:51)
[2018-06-19] MEDS: buPROPion (XL) 150 MG TABLET.XL PO (04:52)
[2018-06-19] MEDS: Enoxaparin 40 MG/0.4 ML Syringe SC (04:53)
[2018-06-19] MEDS: Venlafaxine XR 150 MG Capsule PO (04:53)
[2018-06-19] MEDS: Clopidogrel Bisulfate 75 MG Tablet PO (04:53)
--- NOTE | 2018-06-19 06:00 | RAD_ITS ---
STUDY: X-RAY - LEFT ANKLE REASON FOR EXAM: Female, 78 years old. History of lateral malleolar fracture. TECHNIQUE: 3 view(s) of the ankle. COMPARISON: Comparison is made with prior study dated June 01, 2018. FINDINGS: There is evidence of a nondisplaced oblique fracture of the lateral malleolus. This is unchanged. Normal tibiotalar articulation and ankle mortise. Normal visualized talus and calcaneus. The visualized subtalar, talonavicular, calcaneocuboid and tarsal articulations are normal. The soft tissue structures are unremarkable. RAD/Ankle min 3 Views IMPRESSION: Stable appearance of the oblique fracture of the lateral malleolus. Electronically Signed: Panfilo Gonsalves MD at 10:33 EST Tel [phone], Service support ,
[2018-06-19] MEDS: Nitrofurantoin Macrocrystals 100 MG Capsule PO ×2 (07:37→16:31)
[2018-06-19] MEDS: Aspirin 81 MG TAB.CHEW PO (07:37)
[2018-06-19 08:22] VITALS: PULSE 84; O2SAT 92
--- NOTE | 2018-06-19 08:31 | NURSING ---
PT USING CALL LIGHT APPROPRIATELY, ALARM REMOVED. REINFORCED WITH PT TO CONTINUE TO CALL FOR ASSISTANCE. PT VERBALIZED UNDERSTANDING.
--- NOTE | 2018-06-19 11:50 | MDS.RN ---
Pain interview for dave 06/21/18
--- NOTE | 2018-06-19 14:11 | PCM.TXEXTCAR ---
- Diet 05/24/18 15:24 Diet: Cardiac/Low Cholesterol Food consistency:: Mechanical Soft/Ground Liquid Consistency:: [place] Thick Dietary Modifications:: Mechanical Soft Diet [place] Thick Liquids Is pt able to select menu?: Yes Diet Comments: SUPERVISION. ALL INTAKE BY TEASPOON, SEATED UPRIGHT, 2000MG SODIUM - Routine Orders/Code Status Suppository Type: Dulcolax 10mg Suppository Frequency: Daily PRN Code Status: Full Code - Wound(s) Left achilles Wound Type: Area of concern Dressing Change: Duoderm 06/19 Top left foot Wound Type: Area of concern Dressing Change: Duoderm 06/19 Left 3-4 toes Wound Type: Area of concern Dressing Change: Duoderm 06/16 Left ankle Wound Type: Area of concern Dressing Change: Duoderm 06/19 - Therapies Weight Bearing: Non weight bearing - Left lower extremity. Extremity Affected:: Bilateral Lower Physical Therapy: Eval and Treat Occupational Therapy: Eval and Treat Speech Therapy: Eval and Treat - Problem/Diagnosis (1) Closed left ankle fracture Status: Acute Current Visit: Yes (2) Diabetes mellitus Status: Chronic Current Visit: Yes (3) Sleep apnea Status: Chronic Current Visit: Yes (4) Coronary artery disease Status: Chronic Current Visit: Yes (5) Atrial fibrillation Status: Chronic Current Visit: Yes (6) Depression Status: Chronic Current Visit: Yes (7) Anxiety Status: Chronic Current Visit: No (8) Hyperlipidemia Status: Chronic Current Visit: No (9) Hypertension Status: Chronic Current Visit: No (10) Hypothyroidism Status: Chronic Current Visit: No (11) CVA (cerebral vascular accident) Status: Acute Comment: MRI demonstrated an acute infarct in the right thalamus and left parietal region. 01/2017 Current Visit: No - Allergies/Procedures Done in Hospital Allergies/Adverse Reactions: Allergies atorvastatin Allergy (Verified 06/17/18 19:47) Other muscle weakness codeine Allergy (Verified 06/17/18 19:47) Unknown levofloxacin [From Levaquin] Allergy (Verified 06/17/18 19:47) Pain in joints Penicillins Allergy (Verified 06/17/18 19:47) Swelling tongue swells and hives pravastatin Allergy (Verified 06/17/18 19:47) myalgia Sulfa (Sulfonamide Antibiotics) Allergy (Verified 12/12/18 19:47) Swelling tongue swell and hives - Type of Care/Length of Stay Estimated LOS: Convalescent Care Less Than 30 days Type of Care Needed: Skilled Rehab Potential: Good Prognosis: Good - Additional Orders/Day of Discharge Day of Discharge: 07/01/18 - Dietary and Speech Recommendations Dietitian Recommendations/Changes: Rec liberalize diet to Regular - consistency per SUPERVISING LAW ENFORCEMENT ANALYST. Will continue to provide ensure pudding or magic cup w/ meals for increased nutrition if consumed - Follow Up Care Primary Care Physician: Marisol Casas DO [Primary Care Provider] - Please follow up with your Primary Care Physician in: 1 week. Please Follow Up With: Erendira Verdugo NP-C When: [phone] Please Follow Up With: Marisol Casas DO Please Follow Up With: Mary Márquez DPM When: 07/04/2018.
--- NOTE | 2018-06-19 14:13 | PCM.DC.SUM ---
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 Sutton Diabetes mellitus (Chronic) Sleep apnea (Chronic) Coronary artery disease (Chronic) Atrial fibrillation (Chronic) Depression (Chronic) Slurred speech (Chronic) Hypokalemia (Chronic) Atherosclerotic heart disease of [place] coronary artery without angina pectoris (Chronic) CABG X 2 CAN-LAD, SVG-CX 06/11/2014 @ [facility] per Dr. Sutton Paroxysmal atrial fibrillation (Chronic) Dyspnea on exertion (Chronic) Dizziness (Chronic) Near syncope (Chronic) Stenosis of right carotid artery (Chronic) Right bundle branch block (Chronic) Anxiety (Chronic) Hyperlipidemia (Chronic) Hypertension (Chronic) Hypothyroidism (Chronic) Hospital Course and Treatment Imaging Results: 06/19/18 06:00 Ankle min 3 Views [RAD] Routine Operations: None Procedures: None Summary of Care Provided: The patient is a 78 year old Female with below past medical history significant for recent left ankle fracture, hospitalized for stroke, admitted to for rehabilitation, now admitted to TCU with debility, here for rehabilitation, strengthening, prior to disposition determination. Discharge to the [facility] [place], Skilled PT/OT/ST. Patient Problems: Active and Suspected Problems (Last Updated 06/17/18 @ 19:50 by Pastora Weber) Closed left ankle fracture (Acute) - Physical Exam Vital Signs Temp Pulse Resp BP Pulse Ox 98.5 F 84 20 H 139/84 H 92 06/18/18 16:00 06/19/18 08:22 06/18/18 16:00 06/18/18 16:00 06/19/18 08:22 Oxygen Delivery Method Room Air Weight: 83.121 kg Body Mass Index (BMI) 27.9 Finger Stick Blood Glucose 100 Intake and Output for Last 24 Hours 06/17/18 06/18/18 06/19/18 23:59 23:59 23:59 Intake Total 980 / 980 1160 / 1160 560 / 560 Balance 980 / 980 1160 / 1160 560 / 560 Microbiology Past 72 Hours 06/15/18 04:20 Urine Culture - Final Urine Catheter - Catheter Klebsiella pneumoniae sp pneum Escherichia coli Discharge Diet: - - Mechanical Soft, [place] Thick Liquids. Weight Bearing Status: No weight bearing - Left lower extremity. Call your doctor if you observe: Fever of 101 or Higher, Inability to urinate, Inability to have a bowel movement, Shortness of breath, Chest pain, Uncontrolled pain Home Medications: Medications to take at Discharge Levothyroxine [Synthroid] 75 mcg PO DAILY 06/07/14 Bupropion HCl [Bupropion Xl] 150 mg PO DAILY 04/29/18 Potassium Chloride [Klor-Con M20] 40 meq PO BID 04/29/18 Venlafaxine XR [Effexor Xr] 150 mg PO DAILY 04/29/18 Aspirin [Aspirin, Baby] 81 mg PO DAILY@0800 05/01/18 clopidogrel 75 mg tablet 75 mg PO DAILY #90 tab 05/18/18 ALPRAZolam [Xanax] 0.25 mg PO QHS #14 tab 06/19/18 Acetaminophen [Tylenol] 1,000 mg PO Q6H PRN PRN tablet 06/19/18 Enoxaparin [Lovenox] 40 mg SC DAILY@0600 syringe 06/19/18 Melatonin 10 mg PO QHS tablet 06/19/18 Menthol/Lanolin/Calamine/Znox [Calmoseptine Ointment] 1 applic TOPICAL 0600,2200 tube 06/19/18 Polyethylene Glycol 3350 [Miralax] 17 gm PO DAILY packet 06/19/18 Senna/Docusate Sodium [Senokot-S] 1 tablet PO BID tablet 06/19/18 Following Prescrptions Were Given to Patient: ALPRAZolam [Xanax] 0.25 mg PO QHS #14 tab Primary Care Physician: Marisol Casas DO [Primary Care Provider] - Please follow up with your Primary Care Physician in: 1 week. Please Follow Up With: Erendira Verdugo NP-C When: [phone] Please Follow Up With: Marisol Casas DO Please Follow Up With: Mary Márquez DPM When: 07/04/2018. Disposition: [facility]itentiary facility Minutes spent on discharge:: 30 Patient Condition:: Stable Medical Necessity - Tobacco Use Smoking Status: Never smoker Tobacco Use: Non-smoker Meaningful Use Info Meaningful Use Diagnoses (Choose all that apply): None applicable
--- NOTE | 2018-06-19 14:16 | DS.PCM_ITS ---
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 Sutton Diabetes mellitus (Chronic) Sleep apnea (Chronic) Coronary artery disease (Chronic) Atrial fibrillation (Chronic) Depression (Chronic) Slurred speech (Chronic) Hypokalemia (Chronic) Atherosclerotic heart disease of chicken ranch coronary artery without angina pectoris (Chronic) CABG X 2 CAN-LAD, SVG-CX 06/11/2014 @ [facility] per Dr. Sutton Paroxysmal atrial fibrillation (Chronic) Dyspnea on exertion (Chronic) Dizziness (Chronic) Near syncope (Chronic) Stenosis of right carotid artery (Chronic) Right bundle branch block (Chronic) Anxiety (Chronic) Hyperlipidemia (Chronic) Hypertension (Chronic) Hypothyroidism (Chronic) Hospital Course and Treatment Imaging Results: 06/19/18 06:00 Ankle min 3 Views [RAD] Routine Operations: None Procedures: None Summary of Care Provided: The patient is a 78 year old Female with below past medical history significant for recent left ankle fracture, hospitalized for stroke, admitted to for rehabilitation, now admitted to TCU with debility, here for rehabilitation, strengthening, prior to disposition determination. Discharge to the [facility] [place], Skilled PT/OT/ST. Patient Problems: Active and Suspected Problems (Last Updated 06/17/18 @ 19:50 by Pastora Weber) Closed left ankle fracture (Acute) - Physical Exam Vital Signs Temp Pulse Resp BP Pulse Ox 98.5 F 84 20 H 139/84 H 92 06/18/18 16:00 06/19/18 08:22 06/18/18 16:00 06/18/18 16:00 06/19/18 08:22 Oxygen Delivery Method Room Air Weight: 83.121 kg Body Mass Index (BMI) 27.9 Finger Stick Blood Glucose 100 Intake and Output for Last 24 Hours 06/17/18 06/18/18 06/19/18 23:59 23:59 23:59 Intake Total 980 / 980 1160 / 1160 560 / 560 Balance 980 / 980 1160 / 1160 560 / 560 Microbiology Past 72 Hours 06/15/18 04:20 Urine Culture - Final Urine Catheter - Catheter Klebsiella pneumoniae sp pneum Escherichia coli Discharge Diet: - - Mechanical Soft, [place] Thick Liquids. Weight Bearing Status: No weight bearing - Left lower extremity. Call your doctor if you observe: Fever of 101 or Higher, Inability to urinate, Inability to have a bowel movement, Shortness of breath, Chest pain, Uncontrolled pain Home Medications: Medications to take at Discharge Levothyroxine [Synthroid] 75 mcg PO DAILY 06/07/14 Bupropion HCl [Bupropion Xl] 150 mg PO DAILY 04/29/18 Potassium Chloride [Klor-Con M20] 40 meq PO BID 04/29/18 Venlafaxine XR [Effexor Xr] 150 mg PO DAILY 04/29/18 Aspirin [Aspirin, Baby] 81 mg PO DAILY@0800 05/01/18 clopidogrel 75 mg tablet 75 mg PO DAILY #90 tab 05/18/18 ALPRAZolam [Xanax] 0.25 mg PO QHS #14 tab 06/19/18 Acetaminophen [Tylenol] 1,000 mg PO Q6H PRN PRN tablet 06/19/18 Enoxaparin [Lovenox] 40 mg SC DAILY@0600 syringe 06/19/18 Melatonin 10 mg PO QHS tablet 06/19/18 Menthol/Lanolin/Calamine/Znox [Calmoseptine Ointment] 1 applic TOPICAL 0600,2200 tube 06/19/18 Polyethylene Glycol 3350 [Miralax] 17 gm PO DAILY packet 06/19/18 Senna/Docusate Sodium [Senokot-S] 1 tablet PO BID tablet 06/19/18 Following Prescrptions Were Given to Patient: ALPRAZolam [Xanax] 0.25 mg PO QHS #14 tab Primary Care Physician: Marisol Casas DO [Primary Care Provider] - Please follow up with your Primary Care Physician in: 1 week. Please Follow Up With: Erendira Verdugo NP-C When: [phone] Please Follow Up With: Marisol Casas DO Please Follow Up With: Mary Márquez DPM When: 07/04/2018. Disposition: [facility] facility Minutes spent on discharge:: 30 Patient Condition:: Stable Medical Necessity - Tobacco Use Smoking Status: Never smoker Tobacco Use: Non-smoker Meaningful Use Info Meaningful Use Diagnoses (Choose all that apply): None applicable
[2018-06-19 15:24] VITALS: BP 126/82; PULSE 74; RESP 18; TEMP 35.9; O2SAT 93
[2018-06-19] MEDS: Senna/Docusate Sodium 1 Tablet PO (16:31)
[2018-06-19] MEDS: ALPRAZolam 0.25 MG Tablet PO (20:56)
[2018-06-19] MEDS: MELATONIN 10 MG TABLET PO (20:56)
[2018-06-20] MEDS: Enoxaparin 40 MG/0.4 ML Syringe SC (05:14)
[2018-06-20] MEDS: Levothyroxine 75 MCG Tablet PO (05:14)
[2018-06-20] MEDS: Senna/Docusate Sodium 1 Tablet PO ×2 (05:14→17:01)
[2018-06-20] MEDS: Menthol/Lanolin/Calamine/Znox 113 GM Tube 1 APPLIC TOPICAL ×2 (05:14→21:16)
[2018-06-20] MEDS: buPROPion (XL) 150 MG TABLET.XL PO (05:14)
[2018-06-20] MEDS: Venlafaxine XR 150 MG Capsule PO (05:14)
[2018-06-20] MEDS: Clopidogrel Bisulfate 75 MG Tablet PO (05:14)
[2018-06-20] MEDS: Aspirin 81 MG TAB.CHEW PO (07:46)
[2018-06-20] MEDS: Nitrofurantoin Macrocrystals 100 MG Capsule PO ×2 (07:46→17:01)
[2018-06-20 15:56] VITALS: BP 125/77; PULSE 74; RESP 18; TEMP 36.6; O2SAT 94
[2018-06-20] MEDS: ALPRAZolam 0.25 MG Tablet PO (21:14)
[2018-06-20] MEDS: MELATONIN 10 MG TABLET PO (21:15)
[2018-06-21] MEDS: Menthol/Lanolin/Calamine/Znox 113 GM Tube 1 APPLIC TOPICAL ×2 (06:20→21:06)
[2018-06-21] MEDS: Clopidogrel Bisulfate 75 MG Tablet PO (06:20)
[2018-06-21] MEDS: Enoxaparin 40 MG/0.4 ML Syringe SC (06:21)
[2018-06-21] MEDS: Senna/Docusate Sodium 1 Tablet PO ×2 (06:22→17:09)
[2018-06-21] MEDS: Venlafaxine XR 150 MG Capsule PO (06:22)
[2018-06-21] MEDS: Levothyroxine 75 MCG Tablet PO (06:22)
[2018-06-21] MEDS: buPROPion (XL) 150 MG TABLET.XL PO (06:22)
[2018-06-21] MEDS: Nitrofurantoin Macrocrystals 100 MG Capsule PO ×2 (07:35→17:09)
[2018-06-21] MEDS: Aspirin 81 MG TAB.CHEW PO (07:36)
[2018-06-21 15:15] VITALS: BP 114/84; PULSE 71; RESP 18; TEMP 36.4; O2SAT 93
[2018-06-21] MEDS: ALPRAZolam 0.25 MG Tablet PO (21:04)
[2018-06-21] MEDS: MELATONIN 10 MG TABLET PO (21:04)
[2018-06-22] MEDS: Venlafaxine XR 150 MG Capsule PO (05:10)
[2018-06-22] MEDS: Levothyroxine 75 MCG Tablet PO (05:10)
[2018-06-22] MEDS: Enoxaparin 40 MG/0.4 ML Syringe SC (05:10)
[2018-06-22] MEDS: Clopidogrel Bisulfate 75 MG Tablet PO (05:10)
[2018-06-22] MEDS: Senna/Docusate Sodium 1 Tablet PO ×2 (05:10→16:52)
[2018-06-22] MEDS: buPROPion (XL) 150 MG TABLET.XL PO (05:10)
[2018-06-22] MEDS: Menthol/Lanolin/Calamine/Znox 113 GM Tube 1 APPLIC TOPICAL ×2 (05:13→22:12)
[2018-06-22] MEDS: Aspirin 81 MG TAB.CHEW PO (08:31)
[2018-06-22] MEDS: Nitrofurantoin Macrocrystals 100 MG Capsule PO (08:31)
[2018-06-22 16:00] VITALS: BP 137/88; PULSE 57; RESP 14; TEMP 35.5; O2SAT 94
[2018-06-22] MEDS: MELATONIN 10 MG TABLET PO (22:11)
[2018-06-22] MEDS: ALPRAZolam 0.25 MG Tablet PO (22:11)
[2018-06-23] MEDS: Enoxaparin 40 MG/0.4 ML Syringe SC (05:17)
[2018-06-23] MEDS: buPROPion (XL) 150 MG TABLET.XL PO (05:17)
[2018-06-23] MEDS: Clopidogrel Bisulfate 75 MG Tablet PO (05:17)
[2018-06-23] MEDS: Venlafaxine XR 150 MG Capsule PO (05:17)
[2018-06-23] MEDS: Levothyroxine 75 MCG Tablet PO (05:17)
[2018-06-23] MEDS: Senna/Docusate Sodium 1 Tablet PO ×2 (05:19→17:09)
[2018-06-23] MEDS: Menthol/Lanolin/Calamine/Znox 113 GM Tube 1 APPLIC TOPICAL ×2 (05:20→21:07)
[2018-06-23] MEDS: Aspirin 81 MG TAB.CHEW PO (09:44)
--- NOTE | 2018-06-23 12:58 | NURSING ---
Patient still having urinary incontinence, Dr. Youngblood updated. Continue to monitor.
[2018-06-23 16:00] VITALS: BP 142/91; PULSE 77; RESP 18; TEMP 36.7
--- NOTE | 2018-06-23 16:46 | CASEMGMT ---
Social Work Spoke with resident in room to collaborate on discharge date/plan. Resident is agreeable and plans to discharge to the [facility] at time of discharge. Resident reporting that resident daughter is aware of plan and agreeable as well. Support given. [facility] This social media developer making referral. Clinical information faxed. Janet to get back to this social media developer. Proposed discharge date: 07/01/18 PLAN: Discharge to the [facility]. NADIYA Renae, RADIO SCRIPT WRITER
--- NOTE | 2018-06-23 18:07 | NURSING ---
Okay for patient to go OPAL on 06/28 from 9am to 6pm.
[2018-06-23] MEDS: MELATONIN 10 MG TABLET PO (21:05)
[2018-06-23] MEDS: ALPRAZolam 0.25 MG Tablet PO (21:05)
[2018-06-24] MEDS: Polyethylene Glycol 3350 17 GM PACKET PO (06:19)
[2018-06-24] MEDS: Levothyroxine 75 MCG Tablet PO (06:21)
[2018-06-24] MEDS: Venlafaxine XR 150 MG Capsule PO (06:21)
[2018-06-24] MEDS: Enoxaparin 40 MG/0.4 ML Syringe SC (06:21)
[2018-06-24] MEDS: Clopidogrel Bisulfate 75 MG Tablet PO (06:21)
[2018-06-24] MEDS: buPROPion (XL) 150 MG TABLET.XL PO (06:21)
[2018-06-24] MEDS: Senna/Docusate Sodium 1 Tablet PO ×2 (06:21→16:34)
[2018-06-24] MEDS: Menthol/Lanolin/Calamine/Znox 113 GM Tube 1 APPLIC TOPICAL ×2 (06:24→21:06)
[2018-06-24] MEDS: Aspirin 81 MG TAB.CHEW PO (08:16)
--- NOTE | 2018-06-24 11:11 | NURSING ---
notified Dr williamson regarding pt urinary incontinence and having been treated x2 for UTI's since admit to hospital. Wound like us to do PVR's after voiding and then set up appt for pt in her office after dc
--- NOTE | 2018-06-24 13:19 | CASEMGMT ---
Social [facility] [place] [facility] [place] and the [facility] is expecting resident to admit on 07/01/18. Spoke with resident and resident family. This licensed clinical social worker communicating above information. Resident family planning to provide transportation at time of discharge. Will continue to follow. Proposed discharge date: 07/01/18 PLAN: Discharge to the [facility] [place]illed. NADIYA Renae, PATENT ENGINEER
[2018-06-24 15:27] VITALS: BP 157/96; PULSE 75; RESP 16; TEMP 36.4; O2SAT 92
--- NOTE | 2018-06-24 17:21 | NURSING ---
DR MORRISON UPDATED, PT REQUESTING POTASSIUM BE DCD, LAST LEVEL GOOD. ORDER OBTAINED, PT UPDATED.
[2018-06-24] MEDS: ALPRAZolam 0.25 MG Tablet PO (21:06)
[2018-06-24] MEDS: MELATONIN 10 MG TABLET PO (21:06)
[2018-06-25] MEDS: Enoxaparin 40 MG/0.4 ML Syringe SC (05:08)
[2018-06-25] MEDS: Polyethylene Glycol 3350 17 GM PACKET PO (05:09)
[2018-06-25] MEDS: Venlafaxine XR 150 MG Capsule PO (05:09)
[2018-06-25] MEDS: Levothyroxine 75 MCG Tablet PO (05:09)
[2018-06-25] MEDS: Menthol/Lanolin/Calamine/Znox 113 GM Tube 1 APPLIC TOPICAL ×2 (05:09→20:29)
[2018-06-25] MEDS: Senna/Docusate Sodium 1 Tablet PO (05:09)
[2018-06-25] MEDS: Clopidogrel Bisulfate 75 MG Tablet PO (05:09)
[2018-06-25] MEDS: buPROPion (XL) 150 MG TABLET.XL PO (05:09)
[2018-06-25] MEDS: Aspirin 81 MG TAB.CHEW PO (08:36)
--- NOTE | 2018-06-25 08:40 | MDS.RN ---
Information for the mds was obtained from review of the clinical record, interview of resident, staff, and direct observation of resident's care.
--- NOTE | 2018-06-25 14:26 | CASEMGMT ---
Brief interview for mental status (BIMS) and resident mood interview (PHQ-9) completed on this day. BIMS score 15. PHQ-9 score 08/02
[2018-06-25 15:37] VITALS: BP 140/75; PULSE 69; RESP 17; TEMP 36.6
[2018-06-25] MEDS: ALPRAZolam 0.25 MG Tablet PO (20:29)
[2018-06-25] MEDS: MELATONIN 10 MG TABLET PO (20:29)
[2018-06-26] MEDS: Polyethylene Glycol 3350 17 GM PACKET PO (05:32)
[2018-06-26] MEDS: Levothyroxine 75 MCG Tablet PO (05:32)
[2018-06-26] MEDS: Menthol/Lanolin/Calamine/Znox 113 GM Tube 1 APPLIC TOPICAL ×2 (05:32→21:51)
[2018-06-26] MEDS: Clopidogrel Bisulfate 75 MG Tablet PO (05:32)
[2018-06-26] MEDS: buPROPion (XL) 150 MG TABLET.XL PO (05:32)
[2018-06-26] MEDS: Venlafaxine XR 150 MG Capsule PO (05:32)
[2018-06-26] MEDS: Enoxaparin 40 MG/0.4 ML Syringe SC (05:32)
[2018-06-26] MEDS: Senna/Docusate Sodium 1 Tablet PO ×2 (05:41→16:00)
[2018-06-26] MEDS: Aspirin 81 MG TAB.CHEW PO (07:49)
[2018-06-26 15:25] VITALS: BP 142/86; PULSE 73; RESP 16; TEMP 36.4; O2SAT 92
--- NOTE | 2018-06-26 17:18 | CASEMGMT ---
Social Work This mental health social worker meeting with resident in room. Resident tearful and speaking to daughterSunitha on phone when this mental health social worker entered the room. Staff communicating to this mental health social worker that resident spouse, Judd called in and spoke with resident informing resident that Don was not sure how much longer he was going to live. Judd is currently under [facility] care. Resident acknowledging this mental health social worker via eye contact when this mental health social worker entered the room. Resident okay with this mental health social worker sitting down beside resident while resident finished phone conversation. After resident completed conversation with Sunitha, resident reporting that Sunitha is stating that Don is doing well and that hospice is not currently giving any signs or communicating that Don is actively dying at this time. Sunitha reporting to resident that Don actually looks better today then yesterday. Resident reporting to just want to be with him (). Resident reporting that resident family plan to take resident out on an OPAL to be with Don on Friday, resident reporting to be looking forward to this but concerned that Don will last that long. Resident reporting that Don was in to see resident today. Resident agreeable to this mental health social worker contacting [facility] on behave of resident to check on Don's current status. Hospice nurse, Jacinto answering phone and able to speak with resident about Don's current status. Jacinto reassuring resident that [facility] will notifying resident/resident family if Don would begin showing signs of active . Resident voicing to have been encouraged when speaking with Jacinto and to now believe that things will work out. Resident aware that if resident family is able to come and get resident that resident would be able to go on POAL sooner. Resident reporting that resident family is not able to do this at this time and to be looking forward to Friday (resident stated this information with a smile). Resident very tearful during conversation but able to collect self at close of conversation. Emotional support and encouragement provided along with active listening. Resident thanked this mental health social worker. Staff updated and encouraged to provide support as needed. Will continue to follow as needed. Alyx Cochran, SUPERVISOR MARBLE, ENVIRONMENTAL INSPECTOR
[2018-06-26] MEDS: ALPRAZolam 0.25 MG Tablet PO (21:52)
[2018-06-26] MEDS: Acetaminophen 500 MG Tablet 1000 MG PO (21:52)
[2018-06-26] MEDS: MELATONIN 10 MG TABLET PO (21:53)
[2018-06-27] MEDS: Levothyroxine 75 MCG Tablet PO (06:31)
[2018-06-27] MEDS: buPROPion (XL) 150 MG TABLET.XL PO (06:31)
[2018-06-27] MEDS: Enoxaparin 40 MG/0.4 ML Syringe SC (06:31)
[2018-06-27] MEDS: Clopidogrel Bisulfate 75 MG Tablet PO (06:31)
[2018-06-27] MEDS: Venlafaxine XR 150 MG Capsule PO (06:31)
[2018-06-27] MEDS: Polyethylene Glycol 3350 17 GM PACKET PO (06:32)
[2018-06-27] MEDS: Senna/Docusate Sodium 1 Tablet PO ×2 (06:32→17:19)
[2018-06-27] MEDS: Menthol/Lanolin/Calamine/Znox 113 GM Tube 1 APPLIC TOPICAL ×2 (06:37→20:36)
[2018-06-27] MEDS: Aspirin 81 MG TAB.CHEW PO (08:37)
[2018-06-27 15:31] VITALS: BP 131/76; PULSE 71; RESP 16; TEMP 36.6; O2SAT 95
[2018-06-27] MEDS: ALPRAZolam 0.25 MG Tablet PO (20:36)
[2018-06-27] MEDS: MELATONIN 10 MG TABLET PO (20:36)
--- NOTE | 2018-06-27 20:41 | NURSING ---
Pt extremely emotional, tearful and weepy. Seems distrusting of some staff members. Voiced concern over husbands health and his current medications. TECHNICAL ACCOUNT REPRESENTATIVE took pt for walk around unit in recliner chair, pt was fine until spotting another TECHNICAL ACCOUNT REPRESENTATIVE whom she believes ignored her requests during night. TECHNICAL ACCOUNT REPRESENTATIVE was not here during night, pt adamant it was this TECHNICAL ACCOUNT REPRESENTATIVE. Able to redirect and calm down pt with 1:1. Pt accepted hs medications without issue, given scheduled xanax. Continuing to monitor. RN aware.
[2018-06-28] MEDS: Clopidogrel Bisulfate 75 MG Tablet PO (05:12)
[2018-06-28] MEDS: Venlafaxine XR 150 MG Capsule PO (05:12)
[2018-06-28] MEDS: buPROPion (XL) 150 MG TABLET.XL PO (05:12)
[2018-06-28] MEDS: Menthol/Lanolin/Calamine/Znox 113 GM Tube 1 APPLIC TOPICAL (05:12)
[2018-06-28] MEDS: Levothyroxine 75 MCG Tablet PO (05:12)
[2018-06-28] MEDS: Enoxaparin 40 MG/0.4 ML Syringe SC (05:12)
[2018-06-28] MEDS: Aspirin 81 MG TAB.CHEW PO (08:21)
[2018-06-28 16:00] VITALS: BP 119/53; PULSE 70; RESP 18; TEMP 36.3; O2SAT 93
--- NOTE | 2018-06-28 16:23 | NURSING ---
Patient's LLE cleansed and rewrapped.
[2018-06-28] MEDS: ALPRAZolam 0.25 MG Tablet PO (22:45)
[2018-06-28] MEDS: MELATONIN 10 MG TABLET PO (22:46)
[2018-06-29] MEDS: buPROPion (XL) 150 MG TABLET.XL PO (05:17)
[2018-06-29] MEDS: Venlafaxine XR 150 MG Capsule PO (05:17)
[2018-06-29] MEDS: Levothyroxine 75 MCG Tablet PO (05:17)
[2018-06-29] MEDS: Senna/Docusate Sodium 1 Tablet PO ×2 (05:17→16:16)
[2018-06-29] MEDS: Clopidogrel Bisulfate 75 MG Tablet PO (05:17)
[2018-06-29] MEDS: Enoxaparin 40 MG/0.4 ML Syringe SC (05:17)
[2018-06-29] MEDS: Menthol/Lanolin/Calamine/Znox 113 GM Tube 1 APPLIC TOPICAL ×2 (05:21→20:48)
[2018-06-29] MEDS: Aspirin 81 MG TAB.CHEW PO (08:44)
--- NOTE | 2018-06-29 12:47 | CASEMGMT ---
Social Work Discharge information and PASRR results faxed to the [facility] [place]. Resident family planning to provide transportation on day of discharge. Resident and resident family voicing no further needs at this time. Proposed discharge date: 07/01/18 PLAN: Discharge to the [facility] [place] - Skilled. Alyx Cochran, SUPERVISOR POWDERED SUGAR, BLOWING WEASAND
[2018-06-29 15:35] VITALS: BP 123/84; PULSE 70; RESP 18; TEMP 36.7; O2SAT 95
[2018-06-29 16:35] VITALS: BP 153/89; PULSE 77; RESP 18; TEMP 36.6; O2SAT 95
--- NOTE | 2018-06-29 16:47 | NURSING ---
FINISHED GARMENT INSPECTOR FOUND PT ON FLOOR, PT WAS SITTING ON BUTTOCKS NEXT TO CHAIR. PT REPORTS TRYING TO GET BLANKET OFF OF BED INSTEAD OF CALLING FOR HELP AND SLID ONTO FLOOR. VITALS STABLE. PA APPLIED AND HI/LOW BED WITH MATS IN ROOM. DR MORRISON UPDATED VIA TEXT AND DAUGHTER/ NOTIFIED. PT SITTING IN RECLINER CHAIR. PA IN PLACE. CALL LIGHT IN REACH.
[2018-06-29] MEDS: ALPRAZolam 0.25 MG Tablet PO (20:47)
[2018-06-29] MEDS: MELATONIN 10 MG TABLET PO (20:47)
[2018-06-30] MEDS: Senna/Docusate Sodium 1 Tablet PO ×2 (05:45→16:50)
[2018-06-30] MEDS: Clopidogrel Bisulfate 75 MG Tablet PO (05:46)
[2018-06-30] MEDS: buPROPion (XL) 150 MG TABLET.XL PO (05:46)
[2018-06-30] MEDS: Levothyroxine 75 MCG Tablet PO (05:46)
[2018-06-30] MEDS: Menthol/Lanolin/Calamine/Znox 113 GM Tube 1 APPLIC TOPICAL ×2 (05:46→20:40)
[2018-06-30] MEDS: Venlafaxine XR 150 MG Capsule PO (05:46)
[2018-06-30] MEDS: Enoxaparin 40 MG/0.4 ML Syringe SC (05:46)
[2018-06-30] MEDS: Aspirin 81 MG TAB.CHEW PO (07:51)
[2018-06-30 16:00] VITALS: BP 163/82; PULSE 68; RESP 20; TEMP 36.6; O2SAT 95
[2018-06-30] MEDS: ALPRAZolam 0.25 MG Tablet PO (20:40)
[2018-06-30] MEDS: MELATONIN 10 MG TABLET PO (20:40)
[2018-07-01] MEDS: Clopidogrel Bisulfate 75 MG Tablet PO (05:06)
[2018-07-01] MEDS: buPROPion (XL) 150 MG TABLET.XL PO (05:06)
[2018-07-01] MEDS: Venlafaxine XR 150 MG Capsule PO (05:06)
[2018-07-01] MEDS: Levothyroxine 75 MCG Tablet PO (05:06)
[2018-07-01] MEDS: Polyethylene Glycol 3350 17 GM PACKET PO (05:06)
[2018-07-01] MEDS: Menthol/Lanolin/Calamine/Znox 113 GM Tube 1 APPLIC TOPICAL (05:07)
[2018-07-01] MEDS: Enoxaparin 40 MG/0.4 ML Syringe SC (05:09)
[2018-07-01] MEDS: Senna/Docusate Sodium 1 Tablet PO (05:12)
[2018-07-01] MEDS: Aspirin 81 MG TAB.CHEW PO (07:47)
[2018-07-01 11:43] VITALS: BP 156/72; PULSE 81; RESP 17; TEMP 36.7; O2SAT 97
--- NOTE | 2018-07-01 11:50 | NURSING ---
attempted to call report to [facility]. Left voicemail d/t no answer
--- NOTE | 2018-07-01 12:11 | NURSING ---
[facility] Called again, report given to Mary
--- NOTE | 2018-07-01 14:33 | MDS.RN ---
Information for the mds was obtained from review of the clinical record, interview of resident, staff, and direct observation of resident's care.
== END 2018-07-01 10:45 | disposition skilled nursing facility (03) | DRG 57 ==
PROVIDERS: Admitting Provider Family Medicine Geriatric Medicine; Family Provider Internal Medicine; PCP Internal Medicine; Visit Provider Family Medicine Geriatric Medicine
DX: I69.321 Dysphasia following cerebral infarction (principal); N39.0 Urinary tract infection, site not specified; S82.892D Other fracture of left lower leg, subsequent encounter for closed fracture with routine healing; X58.XXXD Exposure to other specified factors, subsequent encounter; I69.328 Other speech and language deficits following cerebral infarction; E87.6 Hypokalemia; E03.9 Hypothyroidism, unspecified; F32.9 Major depressive disorder, single episode, unspecified; F41.9 Anxiety disorder, unspecified; I48.0 Paroxysmal atrial fibrillation; I10 Essential (primary) hypertension; E78.5 Hyperlipidemia, unspecified; I25.10 Atherosclerotic heart disease of native coronary artery without angina pectoris; G47.30 Sleep apnea, unspecified; E11.9 Type 2 diabetes mellitus without complications; Z95.1 Presence of aortocoronary bypass graft
CPT/HCPCS: 36415; 73610; 74230; 80048; 81001; 85025; 87077; 87086; 87088; 87186; 92507; 92523; 92526; 92610; 97110; 97116; 97163; 97166; 97530; 97535; 97542; 97802

== ENCOUNTER → 2018-09-02 12:14 | Outpatient (CLI) | payer MEDICARE, OTHER, SELFPAY ==
[2018-08-25 14:14] VITALS: BMI 30.4
--- NOTE | 2018-09-02 13:00 | RAD_ITS ---
STUDY: SWALLOWING STUDY REASON FOR EXAM: Female, 78 years old. Dysphagia. TECHNIQUE: The examination was performed with Speech Pathology in attendance. Under fluoroscopic observation, the patient ingested thin barium, thick barium, barium pudding, and barium coated cracker. FLUOROSCOPY TIME: 1:48 minutes/seconds. 2996 spot images were obtained. RADIOLOGIST INVOLVEMENT: Radiologist was present and providing direct supervision. COMPARISON: Comparison is made with prior examination dated June 18, 2018. FINDINGS: The following was observed during swallowing of the various mixtures of barium: Thin Barium: Silent aspiration with ingestion of thin liquids. Thick Barium: Solid aspiration with ingestion of nectar thickened liquids. Barium Pudding: There was no evidence of aspiration or laryngeal penetration. Barium Coated Cracker: There was no evidence of aspiration or laryngeal penetration. RAD/Swallowing Function w/Video IMPRESSION: Silent aspiration with ingestion of thin liquids and nectar thickened liquids. The swallow study findings were discussed with the patient by the speech pathologist at the conclusion of the examination. Please see speech pathology report for more information and recommendations. Electronically Signed: Panfilo Gonsalves, at 14:58 EST , Service support ,
--- NOTE | 2018-09-02 13:39 | SP.MBSS_ITS ---
PRIMARY / SECONDARY DIAGNOSIS: Oropharyngeal dysphagia (R13.12) REFERRING PHYSICIAN: Dr. Wes Hernandez CURRENT DIET: mechanical soft textures/nectar thick liquids DENTITION: Natural Teeth MENTAL STATUS: WFL for this assessment RESPIRATORY STATUS: O2 via room air PREVIOUS MODIFIED BARIUM SWALLOW STUDY: 06/18/2018, 05/21/2018, and 05/04/2018 REASON FOR REFERRAL: Patient has history of silent aspiration with MBSS ordered to determine least restrictive/safest means of nutrition and hydration. The patient has been receiving skilled [facility] intervention [facility] targeting dysphagia. The patient is a known silent aspiration and familiar to the [facility] department at [facility]. MEDICAL HISTORY: The patient is 78/F with extensive medical history including , malignant neoplasm of the brain, hypothyroidism, autoimmune thyroiditis, DM2, hypoglcemia, obesity, pure hypercholesterolemia, depression and anxiety, adjustment disorder with depressed mood, hereditary ataxia, insomnia, ANTNOELLA, sleep disorder, hypertensive heart disease without heart failure, COPD, fibromyalgia, cardiac arrhythmia, CVA slurred speech, cognitive-communication deficit, and TIA STUDY FINDINGS: Patient participated in a Modified Barium Swallow (MBS) study on 09/02/2018. Dr. Gonsalves was the radiologist present for this evaluation. This study was recorded in the lateral view and images were sent to PACs for storage. The following consistencies were presented to this patient for analysis of oropharyngeal swallow function: thin liquid, nectar thick liquid, pudding, and a regular textured, Kelli Doone cookie. Results of the MBS are as follows: PENETRATION / ASPIRATION SCALE (FIGUEREDO): 1 = does not enter airway 2 = enters airway/above vocal folds/ejected 3 = enters airway/above vocal folds/not ejected 4 = enters airway/contacts vocal folds/ejected 5 = enters airway/contacts vocal folds/not ejected 6 = enters airway/below vocal folds/ejected 7 = enters airway/below vocal folds/not ejected despite effort 8 = enters airway/below vocal folds/no effort PENETRATION / ASPIRATION SCALE (SCORE): 1) thin liquid via teaspoon= 1 2)thin liquid via teaspoon= 1 3) thin liquid via small single sip from cup= 1 4) thin liquid via small single sip from cup= 1 5)thin liquid via large single sip from cup= 1 6) thin liquid via single sip from cup with chin tuck= 1 7) pudding = 1 8) cookie =1 9) thin liquid via straw= 4 10) thin liquid via sequential sips= 2 11) nectar thick liquids via cup = 8 12) thin liquids via cup = 8 13) nectar thick liquids via chin tuck= 1 IMPRESSION: ORAL PHASE CHARACTERIZED BY: LABIAL SEAL: no labial escape TONGUE CONTROL DURING BOLUS MANIPULATION: occasional escape to lateral buccal caviy/floor of mouth BOLUS PREPARATION / MASTICATION: slow prolonged chewing BOLUS TRANSPORT / LINGUAL MOTION: slowed tongue motion ORAL RESIDUE: trace residue lining oral structures PHARYNGEAL PHASE CHARACTERIZED BY: INITIATION OF PHARYNGEAL SWALLOW: bolus head at posterior laryngeal surface of epiglottis at first hyoid excursion SOFT PALATE ELEVATION: no bolus between soft palate and pharyngeal wall LARYNGEAL ELEVATION: partial superior movement of thyroid cartilage/partial approximation of arytenoids cartilage to epiglottic petiole ANTERIOR HYOID EXCURSION: partial anterior movement EPIGLOTTIC MOVEMENT: complete epiglottic inversion LARYNGEAL VESTIBULE CLOSURE AT HEIGHT OF SWALLOW: incomplete laryngeal vestibule closure with narrow column of air/contrast in laryngeal vestibule PHARYNGEAL STRIPPING WAVE: pharyngeal stripping wave present / complete PHARYNGOESOPHAGEAL SEGMENT OPENING: partial distension and partial duration; partial obstruction of flow TONGUE BASE RETRACTION: no contrast between tongue base and posterior pharyngeal wall PHARYNGEAL RESIDUE: trace residue within or on pharyngeal structures ESOPHAGEAL PHASE CHARACTERIZED BY: ESOPHAGEAL BOLUS CLEARANCE IN THE UPRIGHT POSITION: trace esophageal lining from what could be observed. EFFECTS OF TREATMENT STRATEGIES ATTEMPTED: Chin tuck posture = effective Reduced bolus size = effective Removal of straw = moderately effective although more likely related to fatigue DIET TEXTURE RECOMMENDATIONS: Will recommend a mechanical soft textured, nectar thick liquid diet. COMPENSATORY STRATEGIES RECOMMENDED: Will recommend supervision and assistance as needed, chin tuck with liquids, decreased bolus size, no straws, slow rate, upright 90 degrees during PO intake and remain upright 30-60 minutes post, and medications crushed in purees. INTERPRETATION OF RESULTS: Patient presents with mild oropharyngeal dysphagia (R13.12) secondary to residual deficits following left paramedian pontine and medullary infarction with prior cerebrovascular accidents involving the javi, basal ganglia, right thalamus, and cerebellum. Oral phase primarily marked by prolonged mastication with slowed lingual movements with regular textures. Otherwise, patient able to clear oral residue fairly well. Delayed swallow onset noted with spillage to almost the pyriforms upon hyoid excursion. Pharyngeal phase primarily marked by reduced laryngeal elevation and hyoid excursion resulting in diminished laryngeal vestibule closure / pressure. As trials progressed, the patient fatigued and SILENTLY aspirated on nectar and nectar thickened liquids. Therefore, clinical assessment at bedside relying on identification of overt signs and symptoms of aspiration would be unreliable. Deficits were improved with the use of a chin tuck, although patient unlikely to recall use of chin tuck consistently and/or independently. Deficits were slightly improved with adjustments to bolus volumes. RECOMMENDATIONS: Would strongly discourage advancement past nectar thickened liquids without completion of a repeat modified barium swallow study (6 months post most recent MBSS this date) due to the extent of aspirate identified that was SILENT in nature. Highly likely that with any illness or debility patients swallowing function would also decline. Would consider implementation of the [place] Free Water Protocol (FFWP) following patient and family education IF the patient has the adequate level of supervision. The patient requires continued intensive skilled speech-language intervention targeting diet texture management, training and implementation of recommended compensatory strategies, training and implementation of recommended oropharyngeal strengthening exercises, training, implementation, and patient education regarding implementation of the FFWP and patient and caregiver training targeting meal preparation/thickened liquid preparation. Would recommend thorough training and strict adherence to recommended aspiration precautions, as this patient is highly susceptible to further medical complications associated with aspiration due to the presence and extent of SILENT aspiration. ADDITIONAL COMMENTS/RECOMMENDATIONS: Results and recommendations were discussed with the patient and the patients daughter immediately following MBS completion, with the both verbalizing understanding and agreement with all recommendations and education provided. IMAGE COUNT: [id number] Mary Cuba M.A., CCC-[facility] Speech Language Pathologist [address] [address] [email or web address] [phone]
== END ==
LOC: RAD 12:17
PROVIDERS: Family Provider Internal Medicine; PCP Internal Medicine; Referring Provider Family Medicine; Visit Provider Family Medicine
DX: R13.10 Dysphagia, unspecified (principal)
CPT/HCPCS: 74230; 92611

== ENCOUNTER → 2018-09-08 03:00 | Outpatient (REF) | payer MEDICARE, OTHER, SELFPAY ==
[2018-08-25 14:14] VITALS: BMI 30.4
[2018-09-08 11:55] LABS: Color, Urine Yellow (Yellow); Glucose, Dipstick Normal (Normal); Ketone-Dipstick 5 mg/dl (Negative); Leukocyte Esterase-Dipstick 500 /ul (Negative); Nitrite-Dipstick Positive (Negative); Occult Blood-Urine 50 /ul (Negative); Protein-Dipstick 30 mg/dl (Negative); Specific Gravity, Urine 1.025 (1.002-1.030); Urine Bilirubin Dipstick Negative (Negative); Urine Clarity Sl. Cloudy (Clear); Urine Urobilinogen Normal (Normal)
[2018-09-08 12:03] LABS: Bacteria 2+ /hpf (None Seen); Mucous, Urine 1+ /hpf (<or=2+); Red Blood Cells-Urine 0-5 SEEN /hpf (0-5); Squamous Epithelial Cells - UA 0-5 SEEN /hpf (5-10); White Blood Cells 25-50 SEEN /hpf (0-5)
== END ==
LOC: OLS.AVED 03:00
PROVIDERS: Visit Provider Family Medicine
DX: N39.0 Urinary tract infection, site not specified (principal)
CPT/HCPCS: 81001; 87077; 87086; 87088; 87186

== ENCOUNTER 2018-10-31 12:43 | Inpatient (IN) | payer MEDICARE, OTHER, SELFPAY ==
[2018-08-25 14:14] VITALS: BMI 30.4
[2018-10-31] VITALS (15 sets, daily range): BP systolic 138–158; BP diastolic 80–97; PULSE 65–84; RESP 16–20; TEMP 36.3–36.8; O2SAT 94–99; BMI 27.8; BMI 28.5
--- NOTE | 2018-10-31 13:07 | RAD_ITS ---
STUDY: X-RAY CHEST REASON FOR EXAM: Female, 78 years old. Blurry vision since last night. TECHNIQUE: Single frontal view of the chest. January 23, 2017 COMPARISON: None. FINDINGS: The lungs are clear and expanded. There is no demonstrated pleural abnormality. Normal size heart. There are stable sternotomy wires. Normal mediastinum and valerie. Normal visualized pulmonary arteries. There is atherosclerotic calcification of the aortic arch with tortuosity. Normal visualized thoracic spine. Normal visualized ribs, clavicles, and shoulders. There is no demonstrated abnormality of the visualized soft tissue structures of the upper abdomen. RAD/Chest 1 View IMPRESSION: No acute pathology. Electronically Signed: Jacinto Couch MD at 15:02 EDT , Service support ,
--- NOTE | 2018-10-31 13:07 | CT_ITS ---
STUDY: CT BRAIN WITHOUT CONTRAST REASON FOR EXAM: Female, 78 years old. Visual changes. History of meningioma. RADIATION DOSAGE (If Supplied By Facility): CTDIvol = ( 44.99 ) mGy, DLP = ( 863.60 ) mGycm TECHNIQUE: Transaxial CT imaging of the brain was performed without administration of intravenous contrast material. Individualized dose optimization techniques were used for this CT. COMPARISON: April 29, 2018 FINDINGS: Normal soft tissue structures. Normal calvarium. There is moderate cerebral atrophy with widening of the extra-axial spaces and ventricular dilatation. There are areas of decreased attenuation within the white matter tracts of the supratentorial brain, consistent with microvascular disease changes. Stable lacunar infarcts of the basal ganglia and thalami. Normal brainstem. There is mild cerebellar atrophy. There is no intracranial hemorrhage. There are no findings of an acute ischemic infarction. There are atherosclerotic calcifications. Normal visualized paranasal sinuses. CT/Brain/Head without Contrast IMPRESSION: Chronic involutional changes of the brain. Electronically Signed: Mega Tipton MD at 13:59 EDT , Service support ,
--- NOTE | 2018-10-31 13:07 | EKG12_ITS ---
Test Reason : DIZZINESS Blood Pressure : / mmHG Vent. Rate : 077 BPM Atrial Rate : 077 BPM P-R Int : 156 ms QRS Dur : 130 ms QT Int : 428 ms P-R-T Axes : 038 -20 -05 degrees QTc Int : 484 ms Normal sinus rhythm Right bundle branch block Inferior infarct , age undetermined Abnormal ECG Confirmed by SONAL ROSARIO, VIRGINIE ([id number]), society editor JENNIFER VAZQUEZ ([id number]) on 11/02/2018 12:01:08 PM Referred By: [place] Confirmed By:VIRGINIE PRUITT MD
[2018-10-31] MEDS: 0.9% Normal Saline 1,000 ML 100 ML IV ×2 (13:13→22:50)
[2018-10-31 14:01] LABS: Bedside Glucose 122 mg/dL (70-110)
[2018-10-31 14:06] LABS: Absolute Lymphocyte Count 1.16 X10^3/ul (0.83-4.51); Absolute Neutrophil Count 3.5 X10^3/uL (2.0-7.7); Basophil# 0.02 X10^3/uL; Basophil% 0.4 % (0-1); Eosinophil# 0.18 X10^3/uL; Eosinophils% 3.4 % (0-5); Hematocrit 41.8 % (37-47); Hemoglobin 14.3 g/dl (12.0-15.0); Lymphocyte # 1.16 X10^3/ul (4.0); Lymphocyte % 21.7 % (19-41); Mean Corp Hgb Conc 34.2 g/gl (32-36); Mean Corpuscular Hgb 32.5 pg (27.0-32.0); Mean Platelet Vol. 9.3 fl (6.2-12.0); Monocyte# 0.51 X10^3/uL; Monocyte% 9.5 % (0-10); Neutrophil # 3.47 X10^3/uL (2.7-7.7); Neutrophil % 64.8 % (47-70); Platelet Count 294 K/mm3 (150-450); RBC Distribution Width CV 13.5 % (11.6-14.6); RBC Distribution Width SD 46.8 fl (35.1-43.9); White Blood Count 5.4 K/mm3 (4.4-11.0)
[2018-10-31 14:08] LABS: POSITIVE COUNT NO; POSITIVE DIFFERENTIAL NO; POSITIVE MORPHOLOGY NO
[2018-10-31 14:14] LABS: International Normalized Ratio 1.1; Prothrombin Time (Protime)PT. 13.8 SECONDS (11.7-14.9)
[2018-10-31 14:16] LABS: Partial Thromboplast Time 27.5 Seconds (24.1-36.2)
[2018-10-31 14:22] LABS: Anion Gap 6 (5-15); BUN 13 mg/dL (7-18); BUN/Creat Ratio 14.2 RATIO (10-20); Calcium,Total 8.4 mg/dL (8.5-10.1); Chloride 105 mmol/L (98-107); Creatinine, Serum 0.92 mg/dL (0.55-1.02); EST Glomerular Filtration Rate 63 mL/min (>60); Est Glom Filt Rate - Afr Amer 76 mL/min (>60); Estimated Creatinine Clearance 49.01 ml/min; Glucose 109 mg/dL (74-106); Potassium 3.8 mmol/L (3.5-5.1); Sodium Level 138 mmol/L (136-145)
--- NOTE | 2018-10-31 14:29 | CT_ITS ---
STUDY: CTA OF THE BRAIN REASON FOR EXAM: Female, 78 years old. Right eye vision changes, history of meningioma RADIATION DOSAGE (If Supplied By Facility): CTDIvol = ( 20.46 ) mGy, DLP = ( 593.17 ) mGycm TECHNIQUE: CT angiography was performed with a multi-detector CT scanner. Data acquisition was obtained from the skull base through the vertex following intravenous administration of 100 IV Isovue 370. MIP images were reconstructed from the axial data set. Post-processing of the angiographic images was performed, with multiplanar reformation and 3D reconstruction. Individualized dose optimization techniques were used for this CT. COMPARISON: None. FINDINGS: Normal bilateral petrous carotid arteries. Minimal calcifications at the right cavernous carotid artery with a normal supraclinoid bifurcation. Minimal calcifications at the left cavernous carotid artery with a normal supraclinoid bifurcation. Normal right A1 segments of the anterior cerebral artery. Significant hypoplasia of the left A1 segment of the anterior cerebral artery. Normal intact anterior communicating artery (ACOM). Normal bilateral A2 segments of the anterior cerebral arteries. Normal right M1 and M2 segments of the middle cerebral arteries, with a normal M1 bifurcation. Normal left M1 and M2 segments of the middle cerebral arteries, with a normal M1 bifurcation. Nonvisualization of the right posterior communicating artery (PCOM). Normal left posterior communicating artery (PCOM) supplying the left posterior cerebral artery. Normal bilateral vertebral arteries. Normal basilar artery with communication only with the right posterior cerebral artery. The visualized bilateral superior cerebellar (SCA) arteries are normal. Normal right posterior cerebral artery. Nonvisualization of the proximal segment of the left posterior cerebral artery. There is no demonstrated aneurysm of the [place]. IMPRESSION: Significantly hypoplastic left A1 segment. Nonvisualization of the proximal segment of the left posterior cerebral artery. Nonvisualization of the right posterior indicating artery. Electronically Signed: Luisito Pitts DO at 15:19 EDT Tel [phone], Service support , STUDY: CTA NECK WITH CONTRAST REASON FOR EXAM: Female, 78 years old. Right eye vision changes RADIATION DOSAGE (If Supplied By Facility): CTDIvol = ( 20.46 ) mGy, DLP = ( 593.17 ) mGycm TECHNIQUE: CT angiography with multi-detector data acquisition was performed from the aortic arch to the skull base following intravenous administration of 100 IV Isovue 370. MIP images were reconstructed from the axial data set. Post-processing of the angiographic images was performed, with multiplanar reformation and 3D reconstruction. Individualized dose optimization techniques were used for this CT. COMPARISON: None. FINDINGS: AORTIC ARCH: Normal visualized aortic arch. Normal origins of the brachiocephalic, left common carotid, and left subclavian arteries. RIGHT CAROTID ARTERIES: Normal right common carotid artery (CCA). Mild atherosclerotic calcifications at the right common carotid bulb. Normal origin of the right internal carotid (ICA) artery without a hemodynamically significant stenosis. Normal visualized cervical portion of the right internal carotid artery. Normal origin of the right external carotid artery (ECA). LEFT CAROTID ARTERIES: Normal left common carotid artery (CCA). Normal left common carotid bulb. Normal origin of the left internal carotid (ICA) artery without a hemodynamically significant stenosis. Normal visualized cervical portion of the left internal carotid artery. Normal origin of the left external carotid artery (ECA). VERTEBRAL ARTERIES: Normal right vertebral artery. Atherosclerotic calcifications of the proximal segment of the left vertebral artery with mild luminal narrowing. CT/CTA Neck W/WO Contrast IMPRESSION: Atherosclerotic calcifications at the right carotid bulb and the proximal segment of the left vertebral artery with mild luminal narrowing.. Electronically Signed: Luisito Pitts DO at 15:21 EDT Tel [phone], Service support ,
--- NOTE | 2018-10-31 14:29 | CT_ITS ---
STUDY: CTA OF THE BRAIN REASON FOR EXAM: Female, 78 years old. Right eye vision changes, history of meningioma RADIATION DOSAGE (If Supplied By Facility): CTDIvol = ( 20.46 ) mGy, DLP = ( 593.17 ) mGycm TECHNIQUE: CT angiography was performed with a multi-detector CT scanner. Data acquisition was obtained from the skull base through the vertex following intravenous administration of 100 IV Isovue 370. MIP images were reconstructed from the axial data set. Post-processing of the angiographic images was performed, with multiplanar reformation and 3D reconstruction. Individualized dose optimization techniques were used for this CT. COMPARISON: None. FINDINGS: Normal bilateral petrous carotid arteries. Minimal calcifications at the right cavernous carotid artery with a normal supraclinoid bifurcation. Minimal calcifications at the left cavernous carotid artery with a normal supraclinoid bifurcation. Normal right A1 segments of the anterior cerebral artery. Significant hypoplasia of the left A1 segment of the anterior cerebral artery. Normal intact anterior communicating artery (ACOM). Normal bilateral A2 segments of the anterior cerebral arteries. Normal right M1 and M2 segments of the middle cerebral arteries, with a normal M1 bifurcation. Normal left M1 and M2 segments of the middle cerebral arteries, with a normal M1 bifurcation. Nonvisualization of the right posterior communicating artery (PCOM). Normal left posterior communicating artery (PCOM) supplying the left posterior cerebral artery. Normal bilateral vertebral arteries. Normal basilar artery with communication only with the right posterior cerebral artery. The visualized bilateral superior cerebellar (SCA) arteries are normal. Normal right posterior cerebral artery. Nonvisualization of the proximal segment of the left posterior cerebral artery. There is no demonstrated aneurysm of the [place]. IMPRESSION: Significantly hypoplastic left A1 segment. Nonvisualization of the proximal segment of the left posterior cerebral artery. Nonvisualization of the right posterior indicating artery. Electronically Signed: Luisito Pitts DO at 15:19 EDT Tel [phone], Service support , STUDY: CTA NECK WITH CONTRAST REASON FOR EXAM: Female, 78 years old. Right eye vision changes RADIATION DOSAGE (If Supplied By Facility): CTDIvol = ( 20.46 ) mGy, DLP = ( 593.17 ) mGycm TECHNIQUE: CT angiography with multi-detector data acquisition was performed from the aortic arch to the skull base following intravenous administration of 100 IV Isovue 370. MIP images were reconstructed from the axial data set. Post-processing of the angiographic images was performed, with multiplanar reformation and 3D reconstruction. Individualized dose optimization techniques were used for this CT. COMPARISON: None. FINDINGS: AORTIC ARCH: Normal visualized aortic arch. Normal origins of the brachiocephalic, left common carotid, and left subclavian arteries. RIGHT CAROTID ARTERIES: Normal right common carotid artery (CCA). Mild atherosclerotic calcifications at the right common carotid bulb. Normal origin of the right internal carotid (ICA) artery without a hemodynamically significant stenosis. Normal visualized cervical portion of the right internal carotid artery. Normal origin of the right external carotid artery (ECA). LEFT CAROTID ARTERIES: Normal left common carotid artery (CCA). Normal left common carotid bulb. Normal origin of the left internal carotid (ICA) artery without a hemodynamically significant stenosis. Normal visualized cervical portion of the left internal carotid artery. Normal origin of the left external carotid artery (ECA). VERTEBRAL ARTERIES: Normal right vertebral artery. Atherosclerotic calcifications of the proximal segment of the left vertebral artery with mild luminal narrowing. CT/CTA Head W/WO Contrast IMPRESSION: Atherosclerotic calcifications at the right carotid bulb and the proximal segment of the left vertebral artery with mild luminal narrowing.. Electronically Signed: Luisito Pitts DO at 15:21 EDT Tel [phone], Service support ,
--- NOTE | 2018-10-31 15:42 | ED.DCSUM_ITS ---
- ER Visit Summary Date of Service: 10/31/18 Chief Complaint: Dizzy, vision problems History of Present Illness: The patient is a 78 F who has a history of balance problems. Family states that she gets around in a wheelchair. She is able to stand and pivot to wheelchair, but otherwise does not ambulate. At 9 PM last evening she noted her balance to become even worse than normal. She states that her vision is blurry and she sometimes sees double. Past history significant for CVA, TIA, coronary disease. She is hypertension, high cholesterol, paroxysmal A. fib. She reports a history of a benign brain tumor that was treated with radiation in the past. Medication list is reviewed and does not include anticoagulants. Physical Examination: Vital signs are unremarkable. Patient sitting upright in bed no acute distress. Head and neck examination was no obvious sign of trauma. She does have medial palsy noted to the right eye. Right pupil is equal to left and reactive. She is able to look superior and inferior without difficulty. She has some weakness with lateral gaze. She is unable to medially rotate her eye. She is also noted to have slight droop to the left eyelid and left upper lip. Daughter feels that this is new when compared to prior. Heart is regular rate and rhythm. Lung sounds are clear. Abdomen is soft and nontender. Neuro exam reveals an NIH of 2 for me. She receives 1 point for best gaze and 1 point for facial palsy. Extremity examination is unremarkable. Test Results: EKG is sinus at 77 with right bundle branch block. No acute ischemia. Unchanged when compared to May 2018. CBC and chemistry studies are unremarkable. Coags normal. Troponin negative. Chest x-ray shows no acute pathology. Noncontrast head CT shows chronic involutional changes. CTA of the head and neck are obtained. Hypoplastic left A1 segment is noted. There is nonvisualization of the proximal segment left posterior cerebral artery. There is nonvisualization of the right posterior communicating artery. There is mild luminal narrowing in the left vertebral vessel. Emergency Department Course and Treatment: On repeat evaluation patient is resting comfortably. The droop to the left lip appears to be improved. She continues to not be able to medially rotate her right eye. She will be admitted for further treatment. Treatment Plan: [] Disposition: Admit Impression: 1. Right medial rectus nerve palsy 2. Mild left facial droop This note was generated with [employer] dictation software. It may contain incorrect words, spelling, and punctuation that were not noted in review of the chart prior to signing ED Disposition - Plan for ED Patient: Referrals: Marisol Casas DO [Primary Care Provider] -
--- NOTE | 2018-10-31 15:46 | PCM.HP.STD ---
Problem List (1) CVA (cerebral vascular accident) Status: Acute Qualifiers: CVA mechanism: unspecified Qualified Code(s): I63.9 - Cerebral infarction, unspecified (2) Stented coronary artery Status: Chronic Comment: IVUS left main 06/07/2014, PCI-FAREED Prox & Mid LAD (3) S/P CABG x 2 Status: Chronic Comment: CABG X 2 CAN-LAD, SVG-CX @ [facility] per Dr. Sutton (4) Sleep apnea Status: Chronic Qualifiers: Sleep apnea type: unspecified type Qualified Code(s): G47.30 - Sleep apnea, unspecified (5) Coronary artery disease Status: Chronic Qualifiers: Coronary Disease-Associated Artery/Lesion type: unspecified vessel or lesion type [place] vs. transplanted heart: unspecified whether [place] or transplanted heart Associated angina: angina presence unspecified Qualified Code(s): I25.10 - Atherosclerotic heart disease of [place] coronary artery without angina pectoris (6) Depression Status: Chronic Qualifiers: Depression Type: unspecified Qualified Code(s): F32.9 - Major depressive disorder, single episode, unspecified (7) Paroxysmal atrial fibrillation Status: Chronic (8) Anxiety Status: Chronic (9) Hyperlipidemia Status: Chronic Qualifiers: Hyperlipidemia type: pure hypercholesterolemia Qualified Code(s): E78.00 - Pure hypercholesterolemia, unspecified; E78.0 - Pure hypercholesterolemia (10) Hypertension Status: Chronic Qualifiers: Hypertension type: essential hypertension Qualified Code(s): I10 - Essential (primary) hypertension (11) Hypothyroidism Status: Chronic Qualifiers: Hypothyroidism type: unspecified Qualified Code(s): E03.9 - Hypothyroidism, unspecified (12) CVA (cerebral vascular accident) Status: Chronic Qualifiers: CVA mechanism: unspecified Qualified Code(s): I63.9 - Cerebral infarction, unspecified Comment: MRI demonstrated an acute infarct in the right thalamus and left parietal region. 01/2017 History of Present Illness Date of Admission: 10/31/18 Chief Complaint: Ataxia, R eye deficits, LH/Dizziness The patient is a 78 y/o F w/ PMHx: CAD s/p CABG x 2 and PCI, PAF not anticoagulated secondary to fall frequency, HTN, HLD, Hypothyroidism, Prior CVA (left pontine infarct, right thalamus and left parietal region), Chronic Severe Ataxia w/ Hx Prior Brain Tumor s/p radiation, using wheelchair baseline, only able to pivot who presents to the [facility] ED on 10/31/18 with history of onset at ~ 9:00 pm the evening prior, increased balance difficulties above baseline as well as vision changes w/ blurred and double vision with both eyes open and inability to medial rotate her R eye. She notes nausea, severely worsened debility with vision changes. She notes these are improved if she only opens her L eye. Work-up in the ED included T 97.9, heart rate 84, BP 130/92, respiratory rate 19, 98% on 2 L nasal cannula, unremarkable CBC, unremarkable coags, BMP remarkable only for glucose 109, troponin less than 0.015, EKG with sinus rhythm with right bundle branch block with no acute evidence of ischemia, chest x-ray with no acute cardiopulmonary findings, CT brain with chronic involutional changes, CTA head w/ significantly hypoplastic left A1 segment, nonvisualized proximal segment of the left posterior cerebral artery, nonvisualized right posterior indicating artery, CTA Neck w/ atherosclerotic calcifications at the right carotid bulb and the proximal segment of the left vertebral artery with mild luminal narrowing. In the ED patient ministered normal saline. NIH in the ED 2 with notable examination findings mild facial droop L upper lip and L upper eyelid as well as R medial nerve palsy (1 point for best gaze and 1 point for facial palsy). Past Medical History Past Medical History (Chronic Problems): Chronic Problems (Last Updated 06/17/18 @ 19:50 by Pastora Weber) Stented coronary artery (Chronic 04/13/15) IVUS left main 06/07/2014, PCI-FAREED Prox & Mid LAD S/P CABG x 2 (Chronic 06/11/14) CABG X 2 CAN-LAD, SVG-CX @ [facility] per Dr. Sutton Diabetes mellitus (Chronic) Sleep apnea (Chronic) Coronary artery disease (Chronic) Atrial fibrillation (Chronic) Depression (Chronic) Slurred speech (Chronic) Hypokalemia (Chronic) Atherosclerotic heart disease of [place] coronary artery without angina pectoris (Chronic) CABG X 2 CAN-LAD, SVG-CX 06/11/2014 @ [facility] per Dr. Sutton Paroxysmal atrial fibrillation (Chronic) Dyspnea on exertion (Chronic) Dizziness (Chronic) Near syncope (Chronic) Stenosis of right carotid artery (Chronic) Right bundle branch block (Chronic) Anxiety (Chronic) Hyperlipidemia (Chronic) Hypertension (Chronic) Hypothyroidism (Chronic) CVA (cerebral vascular accident) (Chronic) MRI demonstrated an acute infarct in the right thalamus and left parietal region. 01/2017 Medical History: Medical History (Last Updated 06/17/18 @ 19:50 by Pastora Weber) Hypokalemia (Chronic) E87.6 Atherosclerotic heart disease of [place] coronary artery without angina pectoris (Chronic) I25.10 CABG X 2 CAN-LAD, SVG-CX 06/11/2014 @ [facility] per Dr. Sutton Paroxysmal atrial fibrillation (Chronic) I48.0 Stenosis of right carotid artery (Chronic) I65.21 Right bundle branch block (Chronic) I45.10 Hyperlipidemia (Chronic) E78.5 Hypertension (Chronic) I10 Hypothyroidism (Chronic) E03.9 CVA (cerebral vascular accident) (Chronic) I63.9 MRI demonstrated an acute infarct in the right thalamus and left parietal region. 01/2017 Allergies atorvastatin Allergy (Verified 10/31/18 12:48) Other muscle weakness codeine Allergy (Verified 10/31/18 12:48) Unknown levofloxacin [From Levaquin] Allergy (Verified 10/31/18 12:48) Pain in joints Penicillins Allergy (Verified 10/31/18 12:48) Swelling tongue swells and hives pravastatin Allergy (Verified 10/31/18 12:48) myalgia Sulfa (Sulfonamide Antibiotics) Allergy (Verified 10/31/18 12:48) Swelling tongue swell and hives Home Medications: Ambulatory Orders Medication Instructions Recorded Levothyroxine [Synthroid] 75 mcg PO DAILY 06/07/14 Bupropion HCl [Bupropion Xl] 150 mg PO DAILY 04/29/18 Venlafaxine XR [Effexor Xr] 150 mg PO DAILY 04/29/18 Aspirin [Aspirin, Baby] 81 mg PO DAILY@0800 05/01/18 clopidogrel 75 mg tablet 75 mg PO DAILY #90 tab 05/18/18 ALPRAZolam [Xanax] 0.25 mg PO QHS #14 tab 06/19/18 Acetaminophen [Tylenol] 1,000 mg PO Q6H PRN PRN tablet 06/19/18 Melatonin 10 mg PO QHS tablet 06/19/18 Lisinopril [Prinivil] 10 mg PO DAILY 10/31/18 Potassium Chloride 10 meq PO DAILY 10/31/18 Surgical History: Surgical History (Last Updated 06/17/18 @ 19:50 by Pastora Weber) Stented coronary artery (Chronic) Onset Date: 04/13/15 Z95.5 IVUS left main 06/07/2014, PCI-FAREED Prox & Mid LAD S/P CABG x 2 (Chronic) Onset Date: 06/11/14 Z95.1 CABG X 2 CAN-LAD, SVG-CX @ [facility] per Dr. Sutton Surgical History: arthroscopy, knee, - - CABG x 2, PCI prior, ankle surgery, renal surgery, TKR. 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 Lives: Alone Smoking Status: Never smoker Tobacco Use: Non-smoker Alcohol: None Drugs: None - *Family History Maternal Family History: Family History (Last Reviewed 05/01/18 @ 13:14 by Moises Angelo MD) Father Heart disease Sister Cancer Uncle CAD (coronary artery disease) History Items: Stroke Paternal Family History: Family History (Last Reviewed 05/01/18 @ 13:14 by Moises Angelo MD) Father Heart disease Sister Cancer Uncle CAD (coronary artery disease) History Items: Heart Disease Sibling Family History: Family History (Last Reviewed 05/01/18 @ 13:14 by Moises Angelo MD) Father Heart disease Sister Cancer Uncle CAD (coronary artery disease) History Items: Cancer Review of Systems Constitutional: Reports: Anorexia, Malaise, Weakness, Fatigue. Denies: Chills, Fever, Weight Change HEENT: Reports: Visual Changes. Denies: Head Aches, Sinus Congestion, Sinus Drainage Cardiovascular: Denies: Chest Pain, Palpitations Respiratory: Denies: Cough, Shortness of breath at rest, Sputum production Gastrointestinal: Reports: Nausea. Denies: Abdominal Pain, Vomiting Genitourinary: Denies: Dysuria Musculoskeletal: Denies: Joint Pain, Joint Tenderness Skin: Denies: Rash, Wounds Neurological: Reports: Balance problems, Blurred vision, Double vision, Incoordination. Denies: Focal weakness, Numbness, Tingling Psychiatric: Reports: Anxiety, Depression. Denies: Homicidal Ideations, Suicidal Ideations Hematologic/ Lymphatic: Reports: Easy Bruising, Easy Bleeding VTE Information - Inpt Only VTE Present on Admission: No VTE Mechan Device Prophylaxis: SCD's VTE Pharm Prophylaxis ordered?: Yes Patient Problems: Active and Suspected Problems (Last Updated 06/17/18 @ 19:50 by Pastora Weber) CVA (cerebral vascular accident) (Acute) Subjective: Seated upright in the ED bed, fatigued appearance, notes immediate nausea with attempts to keep both eyes open. Objective: Physical Examination: General: awake, alert, oriented x 3 and cooperative, seated upright in the ED bed in no apparent distress if R eye closed, if both open notable nausea complaint. Skin: normal color, turgor, no icterus, cyanosis. HEENT: AT/NC, EOMI except R eye medial palsy noted, notable double vision and blurred vision w/ both open, ? L eyelid droop and L upper lip droop per ED, not marked and corrects, dry MM, no carotid bruits or JVD noted. Lungs: CTA bilaterally, moderate effort, mild decrease BL bases, no rales, ronchi or wheezing. Heart: Regular rate and rhythm; no gallop, rub audible. Abdomen: soft, NTTP, ND, normal BS, no HSM. Extremities: no cyanosis, clubbing, or edema. Neurological: patient awake, alert, oriented x 3; cognitive function intact; pupils equally reactive to light and accomodation; cranial nerves II-XII grossly normal except EOMI w/ R eye medial palsy noted, notable double vision and blurred vision w/ both open, ? L eyelid droop and L upper lip droop per ED, not marked and corrects, dry MM, moving all 4 extremities, negative babinski, FTN difficult with vision changes but appears intact, HTS intact, sensation intact. Psychiatric: affect appears fatigued, mildly flat, no acute evidence of depressive or anxiety feelings. - Physical Exam Vital Signs Temp Pulse Resp BP Pulse Ox 97.9 F 75 16 145/86 H 99 10/31/18 12:44 10/31/18 15:00 10/31/18 15:00 10/31/18 15:00 10/31/18 15:00 Oxygen Flow Rate (L/min) 2 Oxygen Delivery Method Nasal Cannula Weight: 177 lb 14.609 oz Body Mass Index (BMI) 27.8 Finger Stick Blood Glucose 122 Laboratory Tests Past 24 Hrs 10/31/18 10/31/18 10/31/18 13:55 13:55 13:55 WBC 5.4 RBC 4.40 Hgb 14.3 Hct 41.8 MCV 95.0 MCH 32.5 H MCHC 34.2 RDW 13.5 RDW Differential 46.8 H Plt Count 294 MPV 9.3 Immature Gran % (Auto) 0.200 Neut % (Auto) 64.8 Lymph % (Auto) 21.7 Barren % (Auto) 9.5 Eos % (Auto) 3.4 Baso % (Auto) 0.4 Absolute Neuts (auto) 3.5 Absolute Lymphs (auto) 1.16 Total Counted Not Reportable PT 13.8 INR 1.1 APTT 27.5 Sodium 138 Potassium 3.8 Chloride 105 Carbon Dioxide 27.0 Anion Gap 6 BUN 13 Creatinine 0.92 Estim Creat Clear Calc 49.01 Est GFR (MDRD) Af Amer 76 Est GFR (MDRD) Non-Af 63 BUN/Creatinine Ratio 14.2 Glucose 109 H Calcium 8.4 L Troponin I < 0.015 POC Glucose 10/31/18 13:45 POC Glucose 122 H Assessment/Plan All Active Problems (Last Updated 06/17/18 @ 19:50 by Pastora Weber) CVA (cerebral vascular accident) (Acute) Closed left ankle fracture (Acute) The patient is a 78 y/o F w/ PMHx: CAD s/p CABG x 2 and PCI, PAF not anticoagulated secondary to fall frequency, HTN, HLD, Hypothyroidism, Prior CVA (left pontine infarct, right thalamus and left parietal region), Chronic Severe Ataxia w/ Hx Prior Brain Tumor s/p radiation, using wheelchair baseline, only able to pivot who presents to the [facility] ED on 10/31/18 with history of onset at ~ 9:00 pm the evening prior, increased balance difficulties above baseline as well as vision changes w/ blurred and double vision with both eyes open and inability to medial rotate her R eye. (1) Facial Droop, R Medial Gaze Palsy concerning for ? CVA: Work-up in the ED included T 97.9, heart rate 84, BP 130/92, respiratory rate 19, 98% on 2 L nasal cannula, unremarkable CBC, unremarkable coags, BMP remarkable only for glucose 109, troponin less than 0.015, EKG with sinus rhythm with right bundle branch block with no acute evidence of ischemia, chest x-ray with no acute cardiopulmonary findings, CT brain with chronic involutional changes, CTA head w/ significantly hypoplastic left A1 segment, nonvisualized proximal segment of the left posterior cerebral artery, nonvisualized right posterior indicating artery, CTA Neck w/ atherosclerotic calcifications at the right carotid bulb and the proximal segment of the left vertebral artery with mild luminal narrowing. Will admit to PCU, will obtain MRI Brain with/without contrast given prior Brain Tumor Hx, PT/OT/Speech/Nutrition evaluation per protocol, ECHO 04/30/18 w/ normal LV systolic function, EF 65%, mildly enlarged LA, mild MVI, moderate TVI, mild diffuse AV thickening, trivial ANTHONY, borderline to mildly enlarged ascending aorta, RVSP 34 mmHg, will defer repeat unless requested per Neurology. Will consult Neurology for evaluation. Will allow permissive HTN, maintain on asa and plavix, statin allergy noted w/ AM FLP, fall precautions. TSH, FT4, Mag, HgbA1c pending. (2) Prior CVA: Noted prior CVA left pontine infarct, continue evaluation and work-up as per #1, asa, plavix, deferred anticoagulation given severe fall history, but await neurology input, statin allergy, permissive HTN as noted. (3) Chronic Severe Ataxia w/ Hx Prior Brain Tumor: Patient s/p radiation, using wheelchair baseline, only able to pivot, complicated by as noted CVA history, fall precautions, PT, OT, CM as noted for discharge planning, work-up as noted per #1. (4) CAD: s/p CABG X 2 (CAN-LAD, SVG-CX 06/11/2014 @ [facility] per Dr. Sutton) and PCI (IVUS left main 06/07/2014, PCI-FAREED Prox & Mid LAD 04/13/2015), maintain on asa, plavix, permissive HTN (only on ACEI baseline), statin allergy. (5) PAF: SR upon presentation, not on rhythm or rate agent, not anticoagulated secondary to fall frequency. (6) Hypertension: Permissive. (7) Hyperlipidemia: Statin allergy noted, FLP in AM. (8) Hypothyroidism: Continue home synthroid regimen, TSH and FT4 pending. (9) Anxiety and Depression: Continue home regimen venlafaxine, bupropion, Xanax. (10) DVT Prophylaxis: SCDs, lovenox. Code Visit Inpatient E&M: 80151 Init Hosp L3
--- NOTE | 2018-10-31 16:05 | HP.PCM_ITS ---
Problem List (1) CVA (cerebral vascular accident) Status: Acute Qualifiers: CVA mechanism: unspecified Qualified Code(s): I63.9 - Cerebral infarction, unspecified (2) Stented coronary artery Status: Chronic Comment: IVUS left main 06/07/2014, PCI-FAREED Prox & Mid LAD (3) S/P CABG x 2 Status: Chronic Comment: CABG X 2 CAN-LAD, SVG-CX @ [facility] per Dr. Sutton (4) Sleep apnea Status: Chronic Qualifiers: Sleep apnea type: unspecified type Qualified Code(s): G47.30 - Sleep apnea, unspecified (5) Coronary artery disease Status: Chronic Qualifiers: Coronary Disease-Associated Artery/Lesion type: unspecified vessel or lesion type [place] vs. transplanted heart: unspecified whether tribe or transplanted heart Associated angina: angina presence unspecified Qualified Code(s): I25.10 - Atherosclerotic heart disease of tribe coronary artery without angina pectoris (6) Depression Status: Chronic Qualifiers: Depression Type: unspecified Qualified Code(s): F32.9 - Major depressive disorder, single episode, unspecified (7) Paroxysmal atrial fibrillation Status: Chronic (8) Anxiety Status: Chronic (9) Hyperlipidemia Status: Chronic Qualifiers: Hyperlipidemia type: pure hypercholesterolemia Qualified Code(s): E78.00 - Pure hypercholesterolemia, unspecified; E78.0 - Pure hypercholesterolemia (10) Hypertension Status: Chronic Qualifiers: Hypertension type: essential hypertension Qualified Code(s): I10 - Essential (primary) hypertension (11) Hypothyroidism Status: Chronic Qualifiers: Hypothyroidism type: unspecified Qualified Code(s): E03.9 - Hypothyroidism, unspecified (12) CVA (cerebral vascular accident) Status: Chronic Qualifiers: CVA mechanism: unspecified Qualified Code(s): I63.9 - Cerebral infarction, unspecified Comment: MRI demonstrated an acute infarct in the right thalamus and left parietal region. 01/2017 History of Present Illness Date of Admission: 10/31/18 Chief Complaint: Ataxia, R eye deficits, LH/Dizziness The patient is a 78 y/o F w/ PMHx: CAD s/p CABG x 2 and PCI, PAF not anticoagulated secondary to fall frequency, HTN, HLD, Hypothyroidism, Prior CVA (left pontine infarct, right thalamus and left parietal region), Chronic Severe Ataxia w/ Hx Prior Brain Tumor s/p radiation, using wheelchair baseline, only able to pivot who presents to the [facility] ED on 10/31/18 with history of onset at ~ 9:00 pm the evening prior, increased balance difficulties above baseline as well as vision changes w/ blurred and double vision with both eyes open and inability to medial rotate her R eye. She notes nausea, severely worsened debility with vision changes. She notes these are improved if she only opens her L eye. Work- up in the ED included T 97.9, heart rate 84, BP 130/92, respiratory rate 19, 98% on 2 L nasal cannula, unremarkable CBC, unremarkable coags, BMP remarkable only for glucose 109, troponin less than 0.015, EKG with sinus rhythm with right bundle branch block with no acute evidence of ischemia, chest x-ray with no acute cardiopulmonary findings, CT brain with chronic involutional changes, CTA head w/ significantly hypoplastic left A1 segment, nonvisualized proximal segment of the left posterior cerebral artery, nonvisualized right posterior indicating artery, CTA Neck w/ atherosclerotic calcifications at the right carotid bulb and the proximal segment of the left vertebral artery with mild luminal narrowing. In the ED patient ministered normal saline. NIH in the ED 2 with notable examination findings mild facial droop L upper lip and L upper eyelid as well as R medial nerve palsy (1 point for best gaze and 1 point for facial palsy). Past Medical History Past Medical History (Chronic Problems): Chronic Problems (Last Updated 06/17/18 @ 19:50 by Pastora Weber) Stented coronary artery (Chronic 04/13/15) IVUS left main 06/07/2014, PCI-FAREED Prox & Mid LAD S/P CABG x 2 (Chronic 06/11/14) CABG X 2 CAN-LAD, SVG-CX @ [facility] per Dr. Sutton Diabetes mellitus (Chronic) Sleep apnea (Chronic) Coronary artery disease (Chronic) Atrial fibrillation (Chronic) Depression (Chronic) Slurred speech (Chronic) Hypokalemia (Chronic) Atherosclerotic heart disease of tribe coronary artery without angina pectoris (Chronic) CABG X 2 CAN-LAD, SVG-CX 06/11/2014 @ [facility] per Dr. Sutton Paroxysmal atrial fibrillation (Chronic) Dyspnea on exertion (Chronic) Dizziness (Chronic) Near syncope (Chronic) Stenosis of right carotid artery (Chronic) Right bundle branch block (Chronic) Anxiety (Chronic) Hyperlipidemia (Chronic) Hypertension (Chronic) Hypothyroidism (Chronic) CVA (cerebral vascular accident) (Chronic) MRI demonstrated an acute infarct in the right thalamus and left parietal region. 01/2017 Medical History: Medical History (Last Updated 06/17/18 @ 19:50 by Pastora Weber) Hypokalemia (Chronic) E87.6 Atherosclerotic heart disease of tribe coronary artery without angina pectoris (Chronic) I25.10 CABG X 2 CAN-LAD, SVG-CX 06/11/2014 @ [facility] per Dr. Sutton Paroxysmal atrial fibrillation (Chronic) I48.0 Stenosis of right carotid artery (Chronic) I65.21 Right bundle branch block (Chronic) I45.10 Hyperlipidemia (Chronic) E78.5 Hypertension (Chronic) I10 Hypothyroidism (Chronic) E03.9 CVA (cerebral vascular accident) (Chronic) I63.9 MRI demonstrated an acute infarct in the right thalamus and left parietal region. 01/2017 Allergies atorvastatin Allergy (Verified 10/31/18 12:48) Other muscle weakness codeine Allergy (Verified 10/31/18 12:48) Unknown levofloxacin [From Levaquin] Allergy (Verified 10/31/18 12:48) Pain in joints Penicillins Allergy (Verified 10/31/18 12:48) Swelling tongue swells and hives pravastatin Allergy (Verified 10/31/18 12:48) myalgia Sulfa (Sulfonamide Antibiotics) Allergy (Verified 10/31/18 12:48) Swelling tongue swell and hives Home Medications: Ambulatory Orders Medication Instructions Recorded Levothyroxine [Synthroid] 75 mcg PO DAILY 06/07/14 Bupropion HCl [Bupropion Xl] 150 mg PO DAILY 04/29/18 Venlafaxine XR [Effexor Xr] 150 mg PO DAILY 04/29/18 Aspirin [Aspirin, Baby] 81 mg PO DAILY@0800 05/01/18 clopidogrel 75 mg tablet 75 mg PO DAILY #90 tab 05/18/18 ALPRAZolam [Xanax] 0.25 mg PO QHS #14 tab 06/19/18 Acetaminophen [Tylenol] 1,000 mg PO Q6H PRN PRN tablet 06/19/18 Melatonin 10 mg PO QHS tablet 06/19/18 Lisinopril [Prinivil] 10 mg PO DAILY 10/31/18 Potassium Chloride 10 meq PO DAILY 10/31/18 Surgical History: Surgical History (Last Updated 06/17/18 @ 19:50 by Pastora Weber) Stented coronary artery (Chronic) Onset Date: 04/13/15 Z95.5 IVUS left main 06/07/2014, PCI-FAREED Prox & Mid LAD S/P CABG x 2 (Chronic) Onset Date: 06/11/14 Z95.1 CABG X 2 CAN-LAD, SVG-CX @ [facility] per Dr. Sutton Surgical History: arthroscopy, knee, - - CABG x 2, PCI prior, ankle surgery, renal surgery, TKR. 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 Lives: Alone Smoking Status: Never smoker Tobacco Use: Non-smoker Alcohol: None Drugs: None - *Family History Maternal Family History: Family History (Last Reviewed 05/01/18 @ 13:14 by Moises Angelo MD) Father Heart disease Sister Cancer Uncle CAD (coronary artery disease) History Items: Stroke Paternal Family History: Family History (Last Reviewed 05/01/18 @ 13:14 by Moises Angelo MD) Father Heart disease Sister Cancer Uncle CAD (coronary artery disease) History Items: Heart Disease Sibling Family History: Family History (Last Reviewed 05/01/18 @ 13:14 by Moises Angelo MD) Father Heart disease Sister Cancer Uncle CAD (coronary artery disease) History Items: Cancer Review of Systems Constitutional: Reports: Anorexia, Malaise, Weakness, Fatigue. Denies: Chills, Fever, Weight Change HEENT: Reports: Visual Changes. Denies: Head Aches, Sinus Congestion, Sinus Drainage Cardiovascular: Denies: Chest Pain, Palpitations Respiratory: Denies: Cough, Shortness of breath at rest, Sputum production Gastrointestinal: Reports: Nausea. Denies: Abdominal Pain, Vomiting Genitourinary: Denies: Dysuria Musculoskeletal: Denies: Joint Pain, Joint Tenderness Skin: Denies: Rash, Wounds Neurological: Reports: Balance problems, Blurred vision, Double vision, Incoordination. Denies: Focal weakness, Numbness, Tingling Psychiatric: Reports: Anxiety, Depression. Denies: Homicidal Ideations, Suicidal Ideations Hematologic/ Lymphatic: Reports: Easy Bruising, Easy Bleeding VTE Information - Inpt Only VTE Present on Admission: No VTE Mechan Device Prophylaxis: SCD's VTE Pharm Prophylaxis ordered?: Yes Patient Problems: Active and Suspected Problems (Last Updated 06/17/18 @ 19:50 by Pastora Weber) CVA (cerebral vascular accident) (Acute) Subjective: Seated upright in the ED bed, fatigued appearance, notes immediate nausea with attempts to keep both eyes open. Objective: Physical Examination: General: awake, alert, oriented x 3 and cooperative, seated upright in the ED bed in no apparent distress if R eye closed, if both open notable nausea complaint. Skin: normal color, turgor, no icterus, cyanosis. HEENT: AT/NC, EOMI except R eye medial palsy noted, notable double vision and blurred vision w/ both open, ? L eyelid droop and L upper lip droop per ED, not marked and corrects, dry MM, no carotid bruits or JVD noted. Lungs: CTA bilaterally, moderate effort, mild decrease BL bases, no rales, ronchi or wheezing. Heart: Regular rate and rhythm; no gallop, rub audible. Abdomen: soft, NTTP, ND, normal BS, no HSM. Extremities: no cyanosis, clubbing, or edema. Neurological: patient awake, alert, oriented x 3; cognitive function intact; pupils equally reactive to light and accomodation; cranial nerves II-XII grossly normal except EOMI w/ R eye medial palsy noted, notable double vision and blurred vision w/ both open, ? L eyelid droop and L upper lip droop per ED, not marked and corrects, dry MM, moving all 4 extremities, negative babinski, FTN difficult with vision changes but appears intact, HTS intact, sensation intact. Psychiatric: affect appears fatigued, mildly flat, no acute evidence of depressive or anxiety feelings. - Physical Exam Vital Signs Temp Pulse Resp BP Pulse Ox 97.9 F 75 16 145/86 H 99 10/31/18 12:44 10/31/18 15:00 10/31/18 15:00 10/31/18 15:00 10/31/18 15:00 Oxygen Flow Rate (L/min) 2 Oxygen Delivery Method Nasal Cannula Weight: 177 lb 14.609 oz Body Mass Index (BMI) 27.8 Finger Stick Blood Glucose 122 Laboratory Tests Past 24 Hrs 10/31/18 10/31/18 10/31/18 13:55 13:55 13:55 WBC 5.4 RBC 4.40 Hgb 14.3 Hct 41.8 MCV 95.0 MCH 32.5 H MCHC 34.2 RDW 13.5 RDW Differential 46.8 H Plt Count 294 MPV 9.3 Immature Gran % (Auto) 0.200 Neut % (Auto) 64.8 Lymph % (Auto) 21.7 [place] % (Auto) 9.5 Eos % (Auto) 3.4 Baso % (Auto) 0.4 Absolute Neuts (auto) 3.5 Absolute Lymphs (auto) 1.16 Total Counted Not Reportable PT 13.8 INR 1.1 APTT 27.5 Sodium 138 Potassium 3.8 Chloride 105 Carbon Dioxide 27.0 Anion Gap 6 BUN 13 Creatinine 0.92 Estim Creat Clear Calc 49.01 Est GFR (MDRD) Af Amer 76 Est GFR (MDRD) Non-Af 63 BUN/Creatinine Ratio 14.2 Glucose 109 H Calcium 8.4 L Troponin I < 0.015 POC Glucose 10/31/18 13:45 POC Glucose 122 H Assessment/Plan All Active Problems (Last Updated 06/17/18 @ 19:50 by Pastora Weber) CVA (cerebral vascular accident) (Acute) Closed left ankle fracture (Acute) The patient is a 78 y/o F w/ PMHx: CAD s/p CABG x 2 and PCI, PAF not anticoagulated secondary to fall frequency, HTN, HLD, Hypothyroidism, Prior CVA (left pontine infarct, right thalamus and left parietal region), Chronic Severe Ataxia w/ Hx Prior Brain Tumor s/p radiation, using wheelchair baseline, only able to pivot who presents to the [facility] ED on 10/31/18 with history of onset at ~ 9:00 pm the evening prior, increased balance difficulties above baseline as well as vision changes w/ blurred and double vision with both eyes open and inability to medial rotate her R eye. (1) Facial Droop, R Medial Gaze Palsy concerning for ? CVA: Work-up in the ED included T 97.9, heart rate 84, BP 130/92, respiratory rate 19, 98% on 2 L nasal cannula, unremarkable CBC, unremarkable coags, BMP remarkable only for glucose 109, troponin less than 0.015, EKG with sinus rhythm with right bundle branch block with no acute evidence of ischemia, chest x-ray with no acute cardiopulmonary findings, CT brain with chronic involutional changes, CTA head w/ significantly hypoplastic left A1 segment, nonvisualized proximal segment of the left posterior cerebral artery, nonvisualized right posterior indicating artery, CTA Neck w/ atherosclerotic calcifications at the right carotid bulb and the proximal segment of the left vertebral artery with mild luminal narrowing. Will admit to PCU, will obtain MRI Brain with/without contrast given prior Brain Tumor Hx, PT/OT/Speech/Nutrition evaluation per protocol, ECHO 04/30/18 w/ normal LV systolic function, EF 65%, mildly enlarged LA, mild MVI, moderate TVI, mild diffuse AV thickening, trivial ANTHONY, borderline to mildly enlarged ascending aorta, RVSP 34 mmHg, will defer repeat unless requested per Neurology. Will consult Neurology for evaluation. Will allow permissive HTN, maintain on asa and plavix, statin allergy noted w/ AM FLP, fall precautions. TSH, FT4, Mag, HgbA1c pending. (2) Prior CVA: Noted prior CVA left pontine infarct, continue evaluation and work-up as per #1, asa, plavix, deferred anticoagulation given severe fall history, but await neurology input, statin allergy, permissive HTN as noted. (3) Chronic Severe Ataxia w/ Hx Prior Brain Tumor: Patient s/p radiation, using wheelchair baseline, only able to pivot, complicated by as noted CVA history, fall precautions, PT, OT, CM as noted for discharge planning, work-up as noted per #1. (4) CAD: s/p CABG X 2 (CAN-LAD, SVG-CX 06/11/2014 @ [facility] per Dr. Sutton) and PCI (IVUS left main 06/07/2014, PCI-FAREED Prox & Mid LAD 04/13/2015), maintain on asa, plavix, permissive HTN (only on ACEI baseline), statin allergy. (5) PAF: SR upon presentation, not on rhythm or rate agent, not anticoagulated secondary to fall frequency. (6) Hypertension: Permissive. (7) Hyperlipidemia: Statin allergy noted, FLP in AM. (8) Hypothyroidism: Continue home synthroid regimen, TSH and FT4 pending. (9) Anxiety and Depression: Continue home regimen venlafaxine, bupropion, Xanax. (10) DVT Prophylaxis: SCDs, lovenox. Code Visit Inpatient E&M: 50013 Init Hosp L3
[2018-10-31 17:15] LABS: Hemoglobin A1c 5.7 % (4.2-6.3)
[2018-10-31 17:16] LABS: Magnesium 1.8 mg/dL (1.6-2.6); T4 Free Direct 0.84 ng/dL (0.76-1.46); Thyroid Stim Hormone (TSH) 0.46 uIU/mL (0.358-3.74)
[2018-10-31 19:00] LABS: Color, Urine Yellow (Yellow); Glucose, Dipstick Normal (Normal); Ketone-Dipstick Negative (Negative); Leukocyte Esterase-Dipstick 100 /ul (Negative); Nitrite-Dipstick Negative (Negative); Occult Blood-Urine Negative /ul (Negative); Protein-Dipstick Negative (Negative); Urine Bilirubin Dipstick Negative (Negative); Urine Clarity Sl. Cloudy (Clear); Urine Urobilinogen Normal (Normal); Urine pH 6.5 (5.0 - 8.0)
[2018-10-31] MEDS: ALPRAZolam 0.25 MG Tablet PO (21:00)
[2018-10-31] MEDS: MELATONIN 10 MG TABLET PO (21:00)
[2018-11-01] VITALS (13 sets, daily range): BP systolic 137–166; BP diastolic 80–95; PULSE 58–74; RESP 16–18; TEMP 36.8–37.4; O2SAT 93–97; BMI 28.5
[2018-11-01] MEDS: Levothyroxine 75 MCG Tablet PO (05:41)
[2018-11-01 06:11] LABS: Absolute Lymphocyte Count 1.23 X10^3/ul (0.83-4.51); Absolute Neutrophil Count 3.3 X10^3/uL (2.0-7.7); Basophil# 0.02 X10^3/uL; Basophil% 0.4 % (0-1); Eosinophil# 0.24 X10^3/uL; Eosinophils% 4.4 % (0-5); Hematocrit 39.8 % (37-47); Hemoglobin 13.3 g/dl (12.0-15.0); Lymphocyte # 1.23 X10^3/ul (4.0); Lymphocyte % 22.8 % (19-41); Mean Corp Hgb Conc 33.4 g/gl (32-36); Mean Corpuscular Hgb 31.7 pg (27.0-32.0); Mean Corpuscular Volume 94.8 fL (81-99); Mean Platelet Vol. 9.8 fl (6.2-12.0); Monocyte# 0.66 X10^3/uL; Monocyte% 12.2 % (0-10); Neutrophil # 3.25 X10^3/uL (2.7-7.7); Neutrophil % 60.2 % (47-70); Platelet Count 267 K/mm3 (150-450); RBC Distribution Width CV 13.7 % (11.6-14.6); White Blood Count 5.4 K/mm3 (4.4-11.0)
[2018-11-01 06:19] LABS: POSITIVE COUNT NO; POSITIVE DIFFERENTIAL NO; POSITIVE MORPHOLOGY NO
[2018-11-01 07:02] LABS: Anion Gap 7 (5-15); BUN 10 mg/dL (7-18); BUN/Creat Ratio 14.2 RATIO (10-20); Calcium,Total 8.2 mg/dL (8.5-10.1); Chloride 108 mmol/L (98-107); Cholesterol 164 mg/dL (200); EST Glomerular Filtration Rate 85 mL/min (>60); Est Glom Filt Rate - Afr Amer 103 mL/min (>60); Estimated Creatinine Clearance 45.09 ml/min; Glucose 83 mg/dL (74-106); High Density Lipoprotein 38 mg/dL; Potassium 3.6 mmol/L (3.5-5.1); Sodium Level 140 mmol/L (136-145); Triglycerides 87 mg/dL; Very Low Density Lipoprotein 17 mg/dL (5-40)
[2018-11-01] MEDS: 0.9% Normal Saline 1,000 ML 100 ML IV ×2 (08:58→19:43)
[2018-11-01] MEDS: Clopidogrel Bisulfate 75 MG Tablet PO (11:50)
[2018-11-01] MEDS: buPROPion (XL) 150 MG TABLET.XL PO (11:50)
[2018-11-01] MEDS: Enoxaparin 40 MG/0.4 ML Syringe SC (11:50)
[2018-11-01] MEDS: Venlafaxine XR 150 MG Capsule PO (11:50)
[2018-11-01] MEDS: Aspirin 81 MG TAB.CHEW PO (11:50)
--- NOTE | 2018-11-01 13:44 | PN_ITS ---
<Ruby Arnold - Last Filed: 11/01/18 13:53> Patient Problems: Active and Suspected Problems (Last Updated 06/17/18 @ 19:50 by Pastora Weber) CVA (cerebral vascular accident) (Acute) Subjective: Patient seen and examined. Continues to complain of right eye vision changes, dizziness and ataxia. Denies unilateral weakness. Denies new or increasing symptoms. - Physical Exam General: Alert, Oriented x3, Cooperative HEENT: Atraumatic, PERRLA, EOMI, Normocephalic, - - Blurred vision, right eye does not track equally with left eye however not fixed. Oral: Moist Mucosa Neck: Supple, No JVD, Negative Carotid Bruits Lungs: Clear to auscultation, Normal air movement Cardiovascular: Regular rate, Regular Rhythm, Normal S1, Normal S2, No murmurs Abdomen: Bowel Sounds Present, Soft, Non Tender, Non-Distended Extremities: No clubbing, No cyanosis, No edema, Capillary Refill Less than 3 Seconds Skin: No rashes, No breakdown Musculoskeletal: No Tenderness to Palpation of Joints or Extremities Neurological: Cranial nerves II-XII grossly intact, Neuro grossly intact Psych/Mental Status: Normal Affect, Appropriate Vital Signs Temp Pulse Resp BP Pulse Ox 98.3 F 67 16 155/86 H 93 11/01/18 11:15 11/01/18 11:15 11/01/18 11:15 11/01/18 11:15 11/01/18 12:40 Oxygen Flow Rate (L/min) 2 Oxygen Delivery Method Room Air Weight: 181 lb 15.865 oz Body Mass Index (BMI) 28.5 Finger Stick Blood Glucose 122 Intake and Output for Last 24 Hours 10/30/18 10/31/18 11/01/18 23:59 23:59 23:59 Intake Total 856 / 856 670 / 670 Output Total 350 / 350 Balance 856 / 856 320 / 320 Laboratory Tests Past 24 Hrs 10/31/18 10/31/18 10/31/18 13:55 13:55 13:55 WBC 5.4 RBC 4.40 Hgb 14.3 Hct 41.8 MCV 95.0 MCH 32.5 H MCHC 34.2 RDW 13.5 RDW Differential 46.8 H Plt Count 294 MPV 9.3 Immature Gran % (Auto) 0.200 Neut % (Auto) 64.8 Lymph % (Auto) 21.7 [place] % (Auto) 9.5 Eos % (Auto) 3.4 Baso % (Auto) 0.4 Absolute Neuts (auto) 3.5 Absolute Lymphs (auto) 1.16 Total Counted Not Reportable PT 13.8 INR 1.1 APTT 27.5 Sodium 138 Potassium 3.8 Chloride 105 Carbon Dioxide 27.0 Anion Gap 6 BUN 13 Creatinine 0.92 Estim Creat Clear Calc 49.01 Est GFR (MDRD) Af Amer 76 Est GFR (MDRD) Non-Af 63 BUN/Creatinine Ratio 14.2 Glucose 109 H Hemoglobin A1c Calcium 8.4 L Magnesium Troponin I < 0.015 Triglycerides Cholesterol LDL Cholesterol VLDL Cholesterol HDL Cholesterol TSH Free T4 Urine Color Urine Clarity Urine pH Ur Specific [place] Urine Protein Urine Glucose (UA) Urine Ketones Urine Occult Blood Urine Nitrite Urine Bilirubin Urine Urobilinogen Ur Leukocyte Esterase 10/31/18 10/31/18 10/31/18 13:55 13:55 18:42 WBC RBC Hgb Hct MCV MCH MCHC RDW RDW Differential Plt Count MPV Immature Gran % (Auto) Neut % (Auto) Lymph % (Auto) [place] % (Auto) Eos % (Auto) Baso % (Auto) Absolute Neuts (auto) Absolute Lymphs (auto) Total Counted PT INR APTT Sodium Potassium Chloride Carbon Dioxide Anion Gap BUN Creatinine Estim Creat Clear Calc Est GFR (MDRD) Af Amer Est GFR (MDRD) Non-Af BUN/Creatinine Ratio Glucose Hemoglobin A1c 5.7 Calcium Magnesium 1.8 Troponin I Triglycerides Cholesterol LDL Cholesterol VLDL Cholesterol HDL Cholesterol TSH 0.46 Free T4 0.84 Urine Color Yellow Urine Clarity Sl. Cloudy Urine pH 6.5 Ur Specific [place] 1.010 Urine Protein Negative Urine Glucose (UA) Normal Urine Ketones Negative Urine Occult Blood Negative Urine Nitrite Negative Urine Bilirubin Negative Urine Urobilinogen Normal Ur Leukocyte Esterase 100 H 11/01/18 11/01/18 04:44 04:44 WBC 5.4 RBC 4.20 Hgb 13.3 Hct 39.8 MCV 94.8 MCH 31.7 MCHC 33.4 RDW 13.7 RDW Differential 47.0 H Plt Count 267 MPV 9.8 Immature Gran % (Auto) 0.000 Neut % (Auto) 60.2 Lymph % (Auto) 22.8 [place] % (Auto) 12.2 H Eos % (Auto) 4.4 Baso % (Auto) 0.4 Absolute Neuts (auto) 3.3 Absolute Lymphs (auto) 1.23 Total Counted Not Reportable PT INR APTT Sodium 140 Potassium 3.6 Chloride 108 H Carbon Dioxide 25.0 Anion Gap 7 BUN 10 Creatinine 0.70 Estim Creat Clear Calc 45.09 Est GFR (MDRD) Af Amer 103 Est GFR (MDRD) Non-Af 85 BUN/Creatinine Ratio 14.2 Glucose 83 Hemoglobin A1c Calcium 8.2 L Magnesium Troponin I Triglycerides 87 Cholesterol 164 LDL Cholesterol 109 VLDL Cholesterol 17 HDL Cholesterol 38 L TSH Free T4 Urine Color Urine Clarity Urine pH Ur Specific [place] Urine Protein Urine Glucose (UA) Urine Ketones Urine Occult Blood Urine Nitrite Urine Bilirubin Urine Urobilinogen Ur Leukocyte Esterase POC Glucose 10/31/18 13:45 POC Glucose 122 H Medical Necessity - Tobacco Use Smoking Status: Never smoker Tobacco Use: Non-smoker Assessment/Plan All Active Problems (Last Updated 06/17/18 @ 19:50 by Pastora Weber) CVA (cerebral vascular accident) (Acute) 1. Acute pontine infarct, history of prior left pontine infarct- MRI of brain shows tiny acute pontine infarct. Neck CTA shows atherosclerotic calcifications at the right carotid bulb and the proximal segment of the left vertebral artery with mild luminal narrowing. Neurology consulted. Continue aspirin, Plavix. Reported allergy to statin. Echocardiogram April 2018 with EF 65%. Will repeat echo given MRI report of new stroke. PT/OT/ST. 2. 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 Prior SNF placement however patient has been home for the past 2 weeks. Reports her family is caring for her 27/01. PT/OT. 3. CAD status post CABG x2 and PCI-continue aspirin, Plavix. 4. Paroxysmal atrial fibrillation-not on oral anticoagulation given high fall risk. Currently sinus rhythm. 5. Hypertension-permissive given #1. 6. Hyperlipidemia-allergy to statin. 7. Hypothyroidism-continue Synthroid regimen. 8. Anxiety/depression-continue venlafaxine, bupropion, Xanax regimen. 9. Right bundle branch block-EKG on admission with right bundle branch block. No change from prior EKG May 2018. DVT prophylaxis-Lovenox subcu This patient was seen by MARLY Braden under the supervision of Dr. Erickson. <DreKrystin E - Last Filed: 11/01/18 14:19> - Physical Exam Vital Signs Temp Pulse Resp BP Pulse Ox 98.3 F 67 16 155/86 H 93 11/01/18 11:15 11/01/18 11:15 11/01/18 11:15 11/01/18 11:15 11/01/18 12:40 Oxygen Flow Rate (L/min) 2 Oxygen Delivery Method Room Air Weight: 181 lb 15.865 oz Body Mass Index (BMI) 28.5 Finger Stick Blood Glucose 122 Intake and Output for Last 24 Hours 10/30/18 10/31/18 11/01/18 23:59 23:59 23:59 Intake Total 856 / 856 670 / 670 Output Total 350 / 350 Balance 856 / 856 320 / 320 Laboratory Tests Past 24 Hrs 10/31/18 10/31/18 10/31/18 13:55 13:55 13:55 WBC 5.4 RBC 4.40 Hgb 14.3 Hct 41.8 MCV 95.0 MCH 32.5 H MCHC 34.2 RDW 13.5 RDW Differential 46.8 H Plt Count 294 MPV 9.3 Immature Gran % (Auto) 0.200 Neut % (Auto) 64.8 Lymph % (Auto) 21.7 [place] % (Auto) 9.5 Eos % (Auto) 3.4 Baso % (Auto) 0.4 Absolute Neuts (auto) 3.5 Absolute Lymphs (auto) 1.16 Total Counted Not Reportable PT 13.8 INR 1.1 APTT 27.5 Sodium 138 Potassium 3.8 Chloride 105 Carbon Dioxide 27.0 Anion Gap 6 BUN 13 Creatinine 0.92 Estim Creat Clear Calc 49.01 Est GFR (MDRD) Af Amer 76 Est GFR (MDRD) Non-Af 63 BUN/Creatinine Ratio 14.2 Glucose 109 H Hemoglobin A1c Calcium 8.4 L Magnesium Troponin I < 0.015 Triglycerides Cholesterol LDL Cholesterol VLDL Cholesterol HDL Cholesterol TSH Free T4 Urine Color Urine Clarity Urine pH Ur Specific [place] Urine Protein Urine Glucose (UA) Urine Ketones Urine Occult Blood Urine Nitrite Urine Bilirubin Urine Urobilinogen Ur Leukocyte Esterase 10/31/18 10/31/18 10/31/18 13:55 13:55 18:42 WBC RBC Hgb Hct MCV MCH MCHC RDW RDW Differential Plt Count MPV Immature Gran % (Auto) Neut % (Auto) Lymph % (Auto) [place] % (Auto) Eos % (Auto) Baso % (Auto) Absolute Neuts (auto) Absolute Lymphs (auto) Total Counted PT INR APTT Sodium Potassium Chloride Carbon Dioxide Anion Gap BUN Creatinine Estim Creat Clear Calc Est GFR (MDRD) Af Amer Est GFR (MDRD) Non-Af BUN/Creatinine Ratio Glucose Hemoglobin A1c 5.7 Calcium Magnesium 1.8 Troponin I Triglycerides Cholesterol LDL Cholesterol VLDL Cholesterol HDL Cholesterol TSH 0.46 Free T4 0.84 Urine Color Yellow Urine Clarity Sl. Cloudy Urine pH 6.5 Ur Specific [place] 1.010 Urine Protein Negative Urine Glucose (UA) Normal Urine Ketones Negative Urine Occult Blood Negative Urine Nitrite Negative Urine Bilirubin Negative Urine Urobilinogen Normal Ur Leukocyte Esterase 100 H 11/01/18 11/01/18 04:44 04:44 WBC 5.4 RBC 4.20 Hgb 13.3 Hct 39.8 MCV 94.8 MCH 31.7 MCHC 33.4 RDW 13.7 RDW Differential 47.0 H Plt Count 267 MPV 9.8 Immature Gran % (Auto) 0.000 Neut % (Auto) 60.2 Lymph % (Auto) 22.8 [place] % (Auto) 12.2 H Eos % (Auto) 4.4 Baso % (Auto) 0.4 Absolute Neuts (auto) 3.3 Absolute Lymphs (auto) 1.23 Total Counted Not Reportable PT INR APTT Sodium 140 Potassium 3.6 Chloride 108 H Carbon Dioxide 25.0 Anion Gap 7 BUN 10 Creatinine 0.70 Estim Creat Clear Calc 45.09 Est GFR (MDRD) Af Amer 103 Est GFR (MDRD) Non-Af 85 BUN/Creatinine Ratio 14.2 Glucose 83 Hemoglobin A1c Calcium 8.2 L Magnesium Troponin I Triglycerides 87 Cholesterol 164 LDL Cholesterol 109 VLDL Cholesterol 17 HDL Cholesterol 38 L TSH Free T4 Urine Color Urine Clarity Urine pH Ur Specific [place] Urine Protein Urine Glucose (UA) Urine Ketones Urine Occult Blood Urine Nitrite Urine Bilirubin Urine Urobilinogen Ur Leukocyte Esterase POC Glucose 10/31/18 13:45 POC Glucose 122 H Assessment/Plan Hospitalist note: I am seeing this patient in conjunction with Ruby Arnold. I independently seen and examined the patient. Progress note above, laboratory data and imaging studies reviewed and I concur with the above treatment plan. Patient seen and examined. She is still complaining of diplopia when opening her right eye, complains of being dizzy and unsteady, ataxic. Her vital signs are stable. MRI brain revealed small acute pontine infarct. - Physical Exam General: Alert, Oriented x3, Cooperative, No apparent distress. HEENT: Atraumatic, PERRLA, EOMI. Neck: Supple, No JVD, Negative Carotid Bruits, Trachea Midline, Thyroid Normal. Lungs: Clear to auscultation, Normal air movement, No rhonchi, No wheeze, No rales. Cardiovascular: Regular rate, Regular Rhythm, Normal S1, Normal S2, PMI Normal. Abdomen: Bowel Sounds Present, Soft, Non Tender, Non-Distended, No Hepato-splenomegaly. Extremities: No clubbing, No cyanosis, No edema Skin: No rashes, No breakdown Neurological: Double vision with blurred vision on opening both eyes, right eye cannot cross midline on adduction, minimal left facial droop. Other cranial nerves are intact, normal power and tone in all 4 limbs. Vital Signs are stable. Assessment and plan: #1 small acute pontine infarct: With resultant paralysis of the right eye on adduction, no motor deficits of the extremities. CTA of the of the neck reviewed. Her vital signs are stable. She is on aspirin and Plavix, not on statin because of allergy. MRI brain reviewed as above. EKG revealed normal sinus rhythm with right bundle branch block, No cardiac arrhythmias or acute ischemic changes. Echocardiogram ordered. neurology consulted, awaiting their recommendations. #2 chronic ataxia: In context of history of brain tumor status post radiation, plan for PT OT as above. #3 other chronic medical problems: Stable, continue current medication as above. This note was generated with [employer] dictation software. It may contain incorrect words, spelling, and punctuation that were not noted in checking the note before signing. Code Visit Inpatient E&M: 72772 Subs Hosp L2
--- NOTE | 2018-11-01 16:41 | MRI_ITS ---
We are attempting to reach Krystin Erickson MD to discuss findings. An addendum with communication details will be sent when the communication is complete. STUDY: MRI BRAIN WITH AND WITHOUT CONTRAST REASON FOR EXAM: Female, 78 years old. Blurred vision. TECHNIQUE: Standardized multiplanar fat and water weighted pulse sequences were obtained. 15 ml IV Dotarem was administered for the contrast portion of the examination. COMPARISON: CT of the head dated October 31, 2018. FINDINGS: There is mild cerebral atrophy with widening of the extra-axial spaces and ventricular dilatation. There are multiple white matter hyperintensities, distributed throughout the deep white matter tracts of the cerebral hemispheres, consistent with moderate chronic white matter ischemic changes. There is confluent periventricular hyperintensity cloaking the lateral ventricles, consistent with periventricular leukoaraiosis. There is a tiny focus of restricted diffusion within the posterior right paramedian javi consistent with a acute infarct. This is only seen on diffusion weighted axial image #9. Normal T2* images of the brain without demonstrated susceptibility artifact. There is no demonstrated hemosiderin stain. There are prominent perivascular spaces (PVS) involving the basal ganglia. Normal thalami. There is no extra-axial fluid accumulation. Normal flow voids within the major intracranial circulation suggesting patency by spin echo criteria. Normal venous enhancement. There is no enhancing intra-axial or extra-axial abnormality. There is enlargement of the sella turcica with increased CSF within the sella and flattening of the pituitary gland consistent with an empty sellar syndrome. Normal infundibular stalk, hypothalamus, and optic chiasm. Normal tectal plate and pineal gland. There are chronic white matter ischemic changes of the javi. The midbrain and medulla are otherwise normal. There are small areas of encephalomalacia right cerebellum consistent with old infarcts. There are large basal cisterns. Normal bilateral temporal bones. Normal bilateral internal auditory canals. There are bilateral ocular lens implants with otherwise normal intraorbital contents. Normal visualized paranasal sinuses. Normal calvarium and skull base. Normal visualized soft tissue structures. Normal visualized upper cervical spine. MRI/Brain W/WO Contrast IMPRESSION: 1. Involutional changes of the brain, as described above. 2. Tiny acute pontine infarct. Electronically Signed: Gloria Valenzuela MD at 11:56 EDT , Service support ,
[2018-11-01] MEDS: ALPRAZolam 0.25 MG Tablet PO (21:17)
[2018-11-01] MEDS: MELATONIN 10 MG TABLET PO (21:17)
[2018-11-02] VITALS (7 sets, daily range): BP systolic 142–155; BP diastolic 80–94; PULSE 55–71; RESP 16–18; TEMP 36.6–36.8; O2SAT 94–96
[2018-11-02] MEDS: 0.9% Normal Saline 1,000 ML 100 ML IV (05:13)
[2018-11-02] MEDS: Levothyroxine 75 MCG Tablet PO (05:13)
[2018-11-02] MEDS: buPROPion (XL) 150 MG TABLET.XL PO (09:11)
[2018-11-02] MEDS: Aspirin 81 MG TAB.CHEW PO (09:11)
[2018-11-02] MEDS: Enoxaparin 40 MG/0.4 ML Syringe SC (09:11)
[2018-11-02] MEDS: Venlafaxine XR 150 MG Capsule PO (09:11)
[2018-11-02] MEDS: Clopidogrel Bisulfate 75 MG Tablet PO (09:11)
--- NOTE | 2018-11-02 11:52 | CASEMGMT ---
Addendum entered by Maryjo Gomez 11/02/18 15:09: SW asked patient if she would like SW to call anyone to notify them she is going to rehab unit today. She declined stating she will talk with her . Maryjo MARCUM Original Note: SW spoke with patient. Introduced self and role at [facility]. Patient said Dr Angelo spoke with her about going to the Inpatient Rehab Unit. She said she would like to go to the rehab unit. MARANDA spoke with Sanna in rehab and Dr Angelo accepted patient. Patient had visitors so SW will check back with her to complete the PHQ9 due to her Stroke. Maryjo MARCUM
--- NOTE | 2018-11-02 11:57 | DCINST_ITS ---
- Discharge Diagnoses Current Active Problems: Current Active and Chronic Problems (Last Updated 11/01/18 @ 14:18 by Krystin Erickson MD) CVA (cerebral vascular accident) (Acute) You will use the following diet at home:: Cardiac Discharge Activity: Return to Normal Activity Call your doctor if you observe: Shortness of breath, Dizziness, Fainting spells, Chest pain Allergies/Adverse Reactions: Allergies atorvastatin Allergy (Verified 10/31/18 12:48) Other muscle weakness codeine Allergy (Verified 10/31/18 12:48) Unknown levofloxacin [From Levaquin] Allergy (Verified 10/31/18 12:48) Pain in joints Penicillins Allergy (Verified 10/31/18 12:48) Swelling tongue swells and hives pravastatin Allergy (Verified 10/31/18 12:48) myalgia Sulfa (Sulfonamide Antibiotics) Allergy (Verified 10/31/18 12:48) Swelling tongue swell and hives Medications to take at Discharge Levothyroxine [Synthroid] 75 mcg PO DAILY 06/07/14 Bupropion HCl [Bupropion Xl] 150 mg PO DAILY 04/29/18 Venlafaxine XR [Effexor Xr] 150 mg PO DAILY 04/29/18 Aspirin [Aspirin, Baby] 81 mg PO DAILY@0800 05/01/18 clopidogrel 75 mg tablet 75 mg PO DAILY #90 tab 05/18/18 ALPRAZolam [Xanax] 0.25 mg PO QHS #14 tab 06/19/18 Acetaminophen [Tylenol] 1,000 mg PO Q6H PRN PRN tablet 06/19/18 Melatonin 10 mg PO QHS tablet 06/19/18 Lisinopril [Prinivil] 10 mg PO DAILY 10/31/18 Potassium Chloride 10 meq PO DAILY 10/31/18 Primary Care Physician: Marisol Casas DO [Primary Care Provider] - Please follow up with your Primary Care Physician in: 1 Week Test Results: Test results from this visit will be discussed in further detail at your follow- up appointment, if applicable. Please Follow Up With: Juan Alan MD When: 4-6 Weeks Proposed Discharge Date: 11/02/18
--- NOTE | 2018-11-02 13:07 | CASEMGMT ---
Patient has a Healthcare LW and Healthcare POA on file. SW verified they are still accurate as they are over 10 years old. She confirmed her is her POA and her daughter is the back-up. Maryjo KESSLER MSW
--- NOTE | 2018-11-02 13:10 | CASEMGMT ---
SW completed PHQ-9 with patient due to her having a Stroke. Patient was tearful during assessment. She expresses frustration with not being able to help other people that need help. SW provided emotional support. SW reminded her that she can also help people emotionally if she cannot physically help them. She is also worried about her . She thanked MARANDA for listening. Patient scored a 6 which is mild depression. Plan: [facility] 4th floor rehab unit Maryjo KESSLER MSW
--- NOTE | 2018-11-02 13:21 | PCM.DC.SUM ---
<Ruby Arnold - Last Filed: 11/02/18 13:31> Discharge Date and Diagnosis Date of Admission: 10/31/18 Date of Discharge: 11/02/18 - Primary Discharge Diagnosis Active and Suspected Problems (Last Updated 11/01/18 @ 14:18 by Krystin Erickson MD) 1. Acute pontine infarct, history of prior left pontine infarct 2. 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 CAD status post CABG x2 and PCI 4. Paroxysmal atrial fibrillation 5. Hypertension 6. Hyperlipidemia 7. Hypothyroidism 8. Anxiety/depression 9. Right bundle branch block, chronic - Secondary Discharge Diagnosis Chronic Problems (Last Updated 11/01/18 @ 14:18 by Krystin Erickson MD) Stented coronary artery (Chronic 04/13/15) 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 Sutton Diabetes mellitus (Chronic) Sleep apnea (Chronic) Coronary artery disease (Chronic) Depression (Chronic) Atherosclerotic heart disease of [place] coronary artery without angina pectoris (Chronic) CABG X 2 CAN-LAD, SVG-CX 06/11/2014 @ [facility] per Dr. Sutton Paroxysmal atrial fibrillation (Chronic) Stenosis of right carotid artery (Chronic) Right bundle branch block (Chronic) Anxiety (Chronic) Hyperlipidemia (Chronic) Hypertension (Chronic) Hypothyroidism (Chronic) CVA (cerebral vascular accident) (Chronic) MRI demonstrated an acute infarct in the right thalamus and left parietal region. 01/2017 Hospital Course and Treatment Imaging Results: Diagnostic Data Brain CT 10/31/18 13:07 IMPRESSION: Chronic involutional changes of the brain. Electronically Signed: Mega Tipton MD at 13:59 EDT , Service support , Chest X-Ray 10/31/18 13:07 IMPRESSION: No acute pathology. Electronically Signed: Jacinto Couch MD at 15:02 EDT , Service support , Head CTA 10/31/18 14:29 IMPRESSION: Atherosclerotic calcifications at the right carotid bulb and the proximal segment of the left vertebral artery with mild luminal narrowing.. Electronically Signed: Luisito PittsDO at 15:21 EDT Tel [phone], Service support , Neck CTA 10/31/18 14:29 IMPRESSION: Atherosclerotic calcifications at the right carotid bulb and the proximal segment of the left vertebral artery with mild luminal narrowing.. Electronically Signed: Luisito Pitts DO at 15:21 EDT Tel [phone], Service support , Brain MRI 11/01/18 16:41 IMPRESSION: 1. Involutional changes of the brain, as described above. 2. Tiny acute pontine infarct. Electronically Signed: Gloria Valenzuela MD at 11:56 EDT , Service support , ADDENDUM: 11/01/18 1215 IMPRESSION: 1. Involutional changes of the brain, as described above. 2. Tiny acute pontine infarct. N.B. : The above information has been verbally conveyed by Gloria Valenzuela MD to Dr. Pepe MD, on 11/01/2018 12:08:47 (ET). Electronically Signed: Gloria Valenzuela MD at 11:56 EDT , Service support , Dr. Angelo- Neurology Operations: None Procedures: 2-D Echocardiogram Summary of Care Provided: The patient is a 78 year old F admitted 10/31/2017 due to ataxia, right eye deficits. 1. Acute pontine infarct, history of prior left pontine infarct- MRI of brain shows tiny acute pontine infarct. Neck CTA shows atherosclerotic calcifications at the right carotid bulb and the proximal segment of the left vertebral artery with mild luminal narrowing. Neurology consulted. Continue aspirin, Plavix. Reported allergy to statin. Echocardiogram April 2018 with EF 65%. Rehab unit at discharge for further PT/OT. Repeat echocardiogram pending at discharge. Follow-up with primary care physician in 1 week. Follow-up with neurology in 1 week. Feel patient should be reconsidered for oral anticoagulation given recurrent CVA and history of paroxysmal atrial fibrillation. 2. 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 Prior SNF placement however patient has been home for the past 2 weeks. Rehab unit at discharge. 3. CAD status post CABG x2 and PCI-continue aspirin, Plavix. 4. Paroxysmal atrial fibrillation-not on oral anticoagulation given high fall risk. Feel this should be reconsidered given recurrent CVA. Will ask neurology to reassess this. 5. Hypertension-continue lisinopril regimen. 6. Hyperlipidemia-allergy to statin. 7. Hypothyroidism-continue Synthroid regimen. 8. Anxiety/depression-continue venlafaxine, bupropion, Xanax regimen. 9. Right bundle branch block-EKG on admission with right bundle branch block. No change from prior EKG May 2018. General: Alert, Oriented x3, Cooperative HEENT: Atraumatic, PERRLA, EOMI, Normocephalic, Blurred vision, right eye does not track equally with left eye however not fixed. Oral: Moist Mucosa Neck: Supple, No JVD, Negative Carotid Bruits Lungs: Clear to auscultation, Normal air movement Cardiovascular: Regular rate, Regular Rhythm, Normal S1, Normal S2, No murmurs Abdomen: Bowel Sounds Present, Soft, Non Tender, Non-Distended Extremities: No clubbing, No cyanosis, No edema, Capillary Refill Less than 3 Seconds Skin: No rashes, No breakdown Musculoskeletal: No Tenderness to Palpation of Joints or Extremities Neurological: Cranial nerves II-XII grossly intact, Neuro grossly intact Psych/Mental Status: Normal Affect, Appropriate Patient seen and examined prior to discharge. Physical assessment as noted above. Patient is stable for discharge with follow up recommendations as noted above. This patient was seen by MARLY Braden under the supervision of Dr. Moerno. - Physical Exam Vital Signs Temp Pulse Resp BP Pulse Ox 98.3 F 71 16 155/90 H 96 11/02/18 12:01 11/02/18 12:01 11/02/18 12:01 11/02/18 12:11/02/18 12:01 Oxygen Flow Rate (L/min) 2 Oxygen Delivery Method Room Air Weight: 181 lb 15.865 oz Body Mass Index (BMI) 28.5 Finger Stick Blood Glucose 122 Intake and Output for Last 24 Hours 10/31/18 11/01/18 11/02/18 23:59 23:59 23:59 Intake Total 856 / 856 2984 / 2984 559 / 559 Output Total 1100 / 1100 400 / 400 Balance 856 / 856 1884 / 1884 159 / 159 Microbiology Past 72 Hours 10/31/18 18:42 Urine Culture - Final Urine, Clean Catch Mixed Gram Positive Organisms Discharge Diet: Low fat/ Low Cholesterol Discharge Activity: Return to Normal Activity Call your doctor if you observe: Shortness of breath, Dizziness, Fainting spells, Chest pain Home Medications: Medications to take at Discharge Levothyroxine [Synthroid] 75 mcg PO DAILY 06/07/14 Bupropion HCl [Bupropion Xl] 150 mg PO DAILY 04/29/18 Venlafaxine XR [Effexor Xr] 150 mg PO DAILY 04/29/18 Aspirin [Aspirin, Baby] 81 mg PO DAILY@0800 05/01/18 clopidogrel 75 mg tablet 75 mg PO DAILY #90 tab 05/18/18 ALPRAZolam [Xanax] 0.25 mg PO QHS #14 tab 06/19/18 Acetaminophen [Tylenol] 1,000 mg PO Q6H PRN PRN tablet 06/19/18 Lisinopril [Prinivil] 10 mg PO DAILY 10/31/18 Potassium Chloride 10 meq PO DAILY 10/31/18 Melatonin 10 mg PO QHS 11/02/18 Primary Care Physician: Marisol Casas DO [Primary Care Provider] - Please follow up with your Primary Care Physician in: 1 Week Please Follow Up With: Juan Alan MD When: 4-6 Weeks Disposition: Inpt Rehab Unit/Facility Minutes spent on discharge:: 35 Patient Condition:: Stable Medical Necessity - Tobacco Use Smoking Status: Never smoker Tobacco Use: Non-smoker Meaningful Use Info Meaningful Use Diagnoses (Choose all that apply): Ischemic CVA - CVA Therapy Assessed for PT,OT and/or ST?: Yes - Ischemic Stroke Antithrombotic order at d/c?: Yes Dx of Atrial fib/flutter?: Yes Anticoagulant at discharge?: No Reason anticoagulant not ordered: Medical Contraindication Statins at discharge?: No Reason Statin not ordered: Drug Allergy Primary Dx Acute Ischemic CVA?: Yes IV tPA ordered during stay?: No Reason IV t-PA not ordered: Medical Contraindication <StefanielashellHurlburt Field - Last Filed: 11/03/18 18:12> Discharge Date and Diagnosis - Secondary Discharge Diagnosis Chronic Problems (Last Updated 11/01/18 @ 14:18 by Krystin Erickson MD) Stented coronary artery (Chronic 04/13/15) 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 Sutton Diabetes mellitus (Chronic) Sleep apnea (Chronic) Coronary artery disease (Chronic) Depression (Chronic) Atherosclerotic heart disease of [place] coronary artery without angina pectoris (Chronic) CABG X 2 CAN-LAD, SVG-CX 06/11/2014 @ [facility] per Dr. Sutton Paroxysmal atrial fibrillation (Chronic) Stenosis of right carotid artery (Chronic) Right bundle branch block (Chronic) Anxiety (Chronic) Hyperlipidemia (Chronic) Hypertension (Chronic) Hypothyroidism (Chronic) CVA (cerebral vascular accident) (Chronic) MRI demonstrated an acute infarct in the right thalamus and left parietal region. 01/2017 Hospital Course and Treatment Summary of Care Provided: This patient was seen in conjunction with Ruby Arnold NP. I have independently interviewed and examined the patient and reviewed pertinent historical, laboratory, and other data. Please refer to her note for patient's presentation, findings, and recommendations. 78-year-old female with past medical history of atrial fibrillation, hypertension, hyperlipidemia who comes in with ataxia and right-sided deficits found to have a small acute pontine infarcts, seen on MRI with resultant paralysis of the right eye. No motor deficits. Patient was managed on aspirin and Plavix. She was not on statin because of allergies. EKG shows normal sinus with right bundle branch block. Patient was seen by PT/OT/speech therapist. Seen also by neurology. Acute rehab recommended. See physical exam portion for notes on the day of discharge Labs reviewed: Stable ASSESSMENT: 1. Acute pontine infarct, residual right-sided paralysis 2. Chronic severe ataxia 3. History of prior brain tumor status post radiation 4. CAD status post CABG, PCI 5. Paroxysmal atrial fibrillation 6. Hypertension 7. Hyperlipidemia 8. Hypothyroidism 9. Anxiety/depression Subjective: On the day of discharge, patient was seen and examined. Denied any new complaints. Still has blurred vision. Prefers to close right eye. Denies any chest pain no dizziness or shortness of breath. - Physical Exam General: Alert, Oriented x3, Cooperative, No apparent distress HEENT: Atraumatic, PERRLA, EOMI, Normocephalic Neck: Supple, No JVD, Negative Carotid Bruits Lungs: Clear to auscultation, Normal air movement Cardiovascular: Regular rate, Regular Rhythm, Normal S1, Normal S2, No murmurs Abdomen: Bowel Sounds Present, Soft, Non Tender Extremities: No edema Skin: No rashes, No breakdown Musculoskeletal: No Tenderness to Palpation of Joints or Extremities Lymphatic: No Cervical, Supraclavicular, or Inguinal Adenopathy Neurological: - - Double vision with blurred vision on opening both eyes, right eye cannot cross midline on adduction, minimal left facial droop. Other cranial nerves are intact, normal power and tone in all 4 limbs. Psych/Mental Status: Normal Affect, Appropriate Vital Signs Temp Pulse Resp BP Pulse Ox 98.3 F 71 16 155/90 H 96 11/02/18 12:01 11/02/18 12:01 11/02/18 12:01 11/02/18 12:01 11/02/18 12:01 Oxygen Flow Rate (L/min) 2 Oxygen Delivery Method Room Air Weight: 82.55 kg Body Mass Index (BMI) 28.5 Finger Stick Blood Glucose 122 Intake and Output for Last 24 Hours 11/01/18 11/02/18 11/03/18 23:59 23:59 23:59 Intake Total 2984 / 2984 559 / 559 Output Total 1100 / 1100 400 / 400 Balance 1884 / 1884 159 / 159 Microbiology Past 72 Hours 10/31/18 18:42 Urine Culture - Final Urine, Clean Catch Mixed Gram Positive Organisms Code Visit Inpatient E&M: 14760 Disch Hosp
--- NOTE | 2018-11-02 13:25 | DS.PCM_ITS ---
<Ruby Arnold - Last Filed: 11/02/18 13:31> Discharge Date and Diagnosis Date of Admission: 10/31/18 Date of Discharge: 11/02/18 - Primary Discharge Diagnosis Active and Suspected Problems (Last Updated 11/01/18 @ 14:18 by Krystin Erickson MD) 1. Acute pontine infarct, history of prior left pontine infarct 2. 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 CAD status post CABG x2 and PCI 4. Paroxysmal atrial fibrillation 5. Hypertension 6. Hyperlipidemia 7. Hypothyroidism 8. Anxiety/depression 9. 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 Sutton Diabetes mellitus (Chronic) Sleep apnea (Chronic) Coronary artery disease (Chronic) Depression (Chronic) Atherosclerotic heart disease of [place] coronary artery without angina pectoris (Chronic) CABG X 2 CAN-LAD, SVG-CX 06/11/2014 @ [facility] per Dr. Sutton Paroxysmal atrial fibrillation (Chronic) Stenosis of right carotid artery (Chronic) Right bundle branch block (Chronic) Anxiety (Chronic) Hyperlipidemia (Chronic) Hypertension (Chronic) Hypothyroidism (Chronic) CVA (cerebral vascular accident) (Chronic) MRI demonstrated an acute infarct in the right thalamus and left parietal region. 01/2017 Hospital Course and Treatment Imaging Results: Diagnostic Data Brain CT 10/31/18 13:07 IMPRESSION: Chronic involutional changes of the brain. Electronically Signed: Mega Tipton MD at 13:59 EDT , Service support , Chest X-Ray 10/31/18 13:07 IMPRESSION: No acute pathology. Electronically Signed: Jacinto Couch MD at 15:02 EDT , Service support , Head CTA 10/31/18 14:29 IMPRESSION: Atherosclerotic calcifications at the right carotid bulb and the proximal segment of the left vertebral artery with mild luminal narrowing.. Electronically Signed: Luisito PittsDO at 15:21 EDT Tel [phone], Service support , Neck CTA 10/31/18 14:29 IMPRESSION: Atherosclerotic calcifications at the right carotid bulb and the proximal segment of the left vertebral artery with mild luminal narrowing.. Electronically Signed: Luisito Pitts DO at 15:21 EDT Tel [phone], Service support , Brain MRI 11/01/18 16:41 IMPRESSION: 1. Involutional changes of the brain, as described above. 2. Tiny acute pontine infarct. Electronically Signed: Gloria Valenzuela MD at 11:56 EDT , Service support , ADDENDUM: 11/01/18 1215 IMPRESSION: 1. Involutional changes of the brain, as described above. 2. Tiny acute pontine infarct. N.B. : The above information has been verbally conveyed by Gloria Valenzuela MD to Dr. Pepe MD, on 11/01/2018 12:08:47 (ET). Electronically Signed: Gloria Valenzuela MD at 11:56 EDT , Service support , Dr. Angelo- Neurology Operations: None Procedures: 2-D Echocardiogram Summary of Care Provided: The patient is a 78 year old F admitted 10/31/2017 due to ataxia, right eye deficits. 1. Acute pontine infarct, history of prior left pontine infarct- MRI of brain shows tiny acute pontine infarct. Neck CTA shows atherosclerotic calcifications at the right carotid bulb and the proximal segment of the left vertebral artery with mild luminal narrowing. Neurology consulted. Continue aspirin, Plavix. Reported allergy to statin. Echocardiogram April 2018 with EF 65%. Rehab unit at discharge for further PT/OT. Repeat echocardiogram pending at discharge. Follow-up with primary care physician in 1 week. Follow-up with neurology in 1 week. Feel patient should be reconsidered for oral anticoagulation given recurrent CVA and history of paroxysmal atrial fibrillation. 2. 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 Prior SNF placement however patient has been home for the past 2 weeks. Rehab unit at discharge. 3. CAD status post CABG x2 and PCI-continue aspirin, Plavix. 4. Paroxysmal atrial fibrillation-not on oral anticoagulation given high fall risk. Feel this should be reconsidered given recurrent CVA. Will ask neurology to reassess this. 5. Hypertension-continue lisinopril regimen. 6. Hyperlipidemia-allergy to statin. 7. Hypothyroidism-continue Synthroid regimen. 8. Anxiety/depression-continue venlafaxine, bupropion, Xanax regimen. 9. Right bundle branch block-EKG on admission with right bundle branch block. No change from prior EKG May 2018. General: Alert, Oriented x3, Cooperative HEENT: Atraumatic, PERRLA, EOMI, Normocephalic, Blurred vision, right eye does not track equally with left eye however not fixed. Oral: Moist Mucosa Neck: Supple, No JVD, Negative Carotid Bruits Lungs: Clear to auscultation, Normal air movement Cardiovascular: Regular rate, Regular Rhythm, Normal S1, Normal S2, No murmurs Abdomen: Bowel Sounds Present, Soft, Non Tender, Non-Distended Extremities: No clubbing, No cyanosis, No edema, Capillary Refill Less than 3 Seconds Skin: No rashes, No breakdown Musculoskeletal: No Tenderness to Palpation of Joints or Extremities Neurological: Cranial nerves II-XII grossly intact, Neuro grossly intact Psych/Mental Status: Normal Affect, Appropriate Patient seen and examined prior to discharge. Physical assessment as noted above. Patient is stable for discharge with follow up recommendations as noted above. This patient was seen by MARLY Braden under the supervision of Dr. Moreno. - Physical Exam Vital Signs Temp Pulse Resp BP Pulse Ox 98.3 F 71 16 155/90 H 96 11/02/18 12:01 11/02/18 12:01 11/02/18 12:01 11/02/18 12:11/02/18 12:01 Oxygen Flow Rate (L/min) 2 Oxygen Delivery Method Room Air Weight: 181 lb 15.865 oz Body Mass Index (BMI) 28.5 Finger Stick Blood Glucose 122 Intake and Output for Last 24 Hours 10/31/18 11/01/18 11/02/18 23:59 23:59 23:59 Intake Total 856 / 856 2984 / 2984 559 / 559 Output Total 1100 / 1100 400 / 400 Balance 856 / 856 1884 / 1884 159 / 159 Microbiology Past 72 Hours 10/31/18 18:42 Urine Culture - Final Urine, Clean Catch Mixed Gram Positive Organisms Discharge Diet: Low fat/ Low Cholesterol Discharge Activity: Return to Normal Activity Call your doctor if you observe: Shortness of breath, Dizziness, Fainting spells, Chest pain Home Medications: Medications to take at Discharge Levothyroxine [Synthroid] 75 mcg PO DAILY 06/07/14 Bupropion HCl [Bupropion Xl] 150 mg PO DAILY 04/29/18 Venlafaxine XR [Effexor Xr] 150 mg PO DAILY 04/29/18 Aspirin [Aspirin, Baby] 81 mg PO DAILY@0800 05/01/18 clopidogrel 75 mg tablet 75 mg PO DAILY #90 tab 05/18/18 ALPRAZolam [Xanax] 0.25 mg PO QHS #14 tab 06/19/18 Acetaminophen [Tylenol] 1,000 mg PO Q6H PRN PRN tablet 06/19/18 Lisinopril [Prinivil] 10 mg PO DAILY 10/31/18 Potassium Chloride 10 meq PO DAILY 10/31/18 Melatonin 10 mg PO QHS 11/02/18 Primary Care Physician: Marisol Casas DO [Primary Care Provider] - Please follow up with your Primary Care Physician in: 1 Week Please Follow Up With: Juan Alan MD When: 4-6 Weeks Disposition: Inpt Rehab Unit/Facility Minutes spent on discharge:: 35 Patient Condition:: Stable Medical Necessity - Tobacco Use Smoking Status: Never smoker Tobacco Use: Non-smoker Meaningful Use Info Meaningful Use Diagnoses (Choose all that apply): Ischemic CVA - CVA Therapy Assessed for PT,OT and/or ST?: Yes - Ischemic Stroke Antithrombotic order at d/c?: Yes Dx of Atrial fib/flutter?: Yes Anticoagulant at discharge?: No Reason anticoagulant not ordered: Medical Contraindication Statins at discharge?: No Reason Statin not ordered: Drug Allergy Primary Dx Acute Ischemic CVA?: Yes IV tPA ordered during stay?: No Reason IV t-PA not ordered: Medical Contraindication <ElierValeria bhatti - Last Filed: 11/03/18 18:12> Discharge Date and Diagnosis - Secondary Discharge Diagnosis Chronic Problems (Last Updated 11/01/18 @ 14:18 by Krystin Erickson MD) Stented coronary artery (Chronic 04/13/15) 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 Sutton Diabetes mellitus (Chronic) Sleep apnea (Chronic) Coronary artery disease (Chronic) Depression (Chronic) Atherosclerotic heart disease of [place] coronary artery without angina pectoris (Chronic) CABG X 2 CAN-LAD, SVG-CX 06/11/2014 @ [facility] per Dr. Sutton Paroxysmal atrial fibrillation (Chronic) Stenosis of right carotid artery (Chronic) Right bundle branch block (Chronic) Anxiety (Chronic) Hyperlipidemia (Chronic) Hypertension (Chronic) Hypothyroidism (Chronic) CVA (cerebral vascular accident) (Chronic) MRI demonstrated an acute infarct in the right thalamus and left parietal r egion. 01/2017 Hospital Course and Treatment Summary of Care Provided: This patient was seen in conjunction with Ruby Arnold NP. I have independently interviewed and examined the patient and reviewed pertinent historical, laboratory, and other data. Please refer to her note for patient's presentation, findings, and recommendations. 78-year-old female with past medical history of atrial fibrillation, hypertension, hyperlipidemia who comes in with ataxia and right-sided deficits found to have a small acute pontine infarcts, seen on MRI with resultant paralysis of the right eye. No motor deficits. Patient was managed on aspirin and Plavix. She was not on statin because of allergies. EKG shows normal sinus with right bundle branch block. Patient was seen by PT/OT/speech therapist. Seen also by neurology. Acute rehab recommended. See physical exam portion for notes on the day of discharge Labs reviewed: Stable ASSESSMENT: 1. Acute pontine infarct, residual right-sided paralysis 2. Chronic severe ataxia 3. History of prior brain tumor status post radiation 4. CAD status post CABG, PCI 5. Paroxysmal atrial fibrillation 6. Hypertension 7. Hyperlipidemia 8. Hypothyroidism 9. Anxiety/depression Subjective: On the day of discharge, patient was seen and examined. Denied any new co mplaints. Still has blurred vision. Prefers to close right eye. Denies any chest pain no dizziness or shortness of breath. - Physical Exam General: Alert, Oriented x3, Cooperative, No apparent distress HEENT: Atraumatic, PERRLA, EOMI, Normocephalic Neck: Supple, No JVD, Negative Carotid Bruits Lungs: Clear to auscultation, Normal air movement Cardiovascular: Regular rate, Regular Rhythm, Normal S1, Normal S2, No murmurs Abdomen: Bowel Sounds Present, Soft, Non Tender Extremities: No edema Skin: No rashes, No breakdown Musculoskeletal: No Tenderness to Palpation of Joints or Extremities Lymphatic: No Cervical, Supraclavicular, or Inguinal Adenopathy Neurological: - - Double vision with blurred vision on opening both eyes, right eye cannot cross midline on adduction, minimal left facial droop. Other cranial nerves are intact, normal power and tone in all 4 limbs. Psych/Mental Status: Normal Affect, Appropriate Vital Signs Temp Pulse Resp BP Pulse Ox 98.3 F 71 16 155/90 H 96 11/02/18 12:01 11/02/18 12:01 11/02/18 12:01 11/02/18 12:01 11/02/18 12:01 Oxygen Flow Rate (L/min) 2 Oxygen Delivery Method Room Air Weight: 82.55 kg Body Mass Index (BMI) 28.5 Finger Stick Blood Glucose 122 Intake and Output for Last 24 Hours 11/01/18 11/02/18 11/03/18 23:59 23:59 23:59 Intake Total 2984 / 2984 559 / 559 Output Total 1100 / 1100 400 / 400 Balance 1884 / 1884 159 / 159 Microbiology Past 72 Hours 10/31/18 18:42 Urine Culture - Final Urine, Clean Catch Mixed Gram Positive Organisms Code Visit Inpatient E&M: 92770 Disch Hosp
== END 2018-11-02 14:25 | DRG 66 ==
LOC: ED 14:03 → PCU 16:34
PROVIDERS: Admitting Provider Family Medicine; Emergency Provider Emergency Medicine; Family Provider Internal Medicine; PCP Internal Medicine; Referring Provider Family Medicine; Visit Provider Internal Medicine
DX: I63.9 Cerebral infarction, unspecified (principal); I25.10 Atherosclerotic heart disease of native coronary artery without angina pectoris; I48.0 Paroxysmal atrial fibrillation; E78.5 Hyperlipidemia, unspecified; R53.81 Other malaise; I45.10 Unspecified right bundle-branch block; E03.9 Hypothyroidism, unspecified; F32.9 Major depressive disorder, single episode, unspecified; F41.9 Anxiety disorder, unspecified; I10 Essential (primary) hypertension; Z95.5 Presence of coronary angioplasty implant and graft; Z92.3 Personal history of irradiation; Z95.1 Presence of aortocoronary bypass graft; R29.702 NIHSS score 2; Z86.73 Personal history of transient ischemic attack (TIA), and cerebral infarction without residual deficits; R27.0 Ataxia, unspecified; H53.2 Diplopia; H53.8 Other visual disturbances
CPT/HCPCS: 36415; 70450; 70496; 70498; 70553; 71045; 80048; 80061; 81002; 82962; 83036; 83735; 84439; 84443; 84484; 85025; 85610; 85730; 87086; 87088; 92526; 92610; 93005; 93306; 96105; 97110; 97162; 97165; 97530; 97535; 97802; 99285; A9575; J7030; Q9957; Q9967; A4216; C8929

== ENCOUNTER 2018-11-02 14:51 | Inpatient (IN) | payer MEDICARE, OTHER, SELFPAY ==
[2018-11-01 23:23] VITALS: BMI 28.5
[2018-11-02 15:14] VITALS: BP 148/101; PULSE 77; RESP 16; TEMP 36.5; O2SAT 97; BMI 26.8
--- NOTE | 2018-11-02 16:45 | PCM.HP.COS ---
History of Present Illness Date of Admission: 11/02/18 Chief Complaint: Debility status post acute pontine infarct The patient is a 78 year old female with PMH CAD, paroxysmal atrial fibrillation, HTN, hyperlipidemia, hypothyroidism, anxiety/depression and chronic severe ataxia with hx of prior brain tumor s/p radiation and prior left pontine infarct admitted to [facility] on 11/02/2018 with debility status post acute pontine infarct for greater than 3 hours of therapy daily with a goal of return back home at or near her prior level of functional independence. Patient presents to the [facility] ED on 10/31/18 with history of onset at 9:00 pm the evening prior, increased balance difficulties above baseline as well as vision changes w/ blurred and double vision with both eyes open and inability to medial rotate her R eye. She also had nausea, severely worsened debility with vision changes. NIH was 2 and was not a TPA candidate. On CTA of head w/wo contrast atherosclerotic calcifications at right carotid bulb and the proximal segment of the left vertebral artery with mild luminal narrowing; CT of brain without contrast showed chronic involutional changes; EKG NSR, Right BBB with no change from prior EKG in May,; CXR with no acute pathology. On 11/01/2018 CT and MRI of brain w/wo contrast showed tiny acute pontine infarct. On 11/02/2018 echocardiogram done with EF of 55-60%. Patient lives with spouse and is wheel chair bound and modified independence with all pivot transfers and ADLs, except has assist with showering and tub/shower transfers. Aspiration precautions and was on mechanical soft, nectar thickened liquids at home. Past Medical History Past Medical History (Chronic Problems): Chronic Problems (Last Updated 11/01/18 @ 14:18 by Krystin Erickson MD) Stented coronary artery (Chronic 04/13/15) IVUS left main 06/07/2014, PCI-FAREED Prox & Mid LAD S/P CABG x 2 (Chronic 06/11/14) CABG X 2 CAN-LAD, SVG-CX @ [facility] per Dr. Sutton Diabetes mellitus (Chronic) Sleep apnea (Chronic) Coronary artery disease (Chronic) Depression (Chronic) Atherosclerotic heart disease of [place] coronary artery without angina pectoris (Chronic) CABG X 2 CAN-LAD, SVG-CX 06/11/2014 @ [facility] per Dr. Sutton Paroxysmal atrial fibrillation (Chronic) Stenosis of right carotid artery (Chronic) Right bundle branch block (Chronic) Anxiety (Chronic) Hyperlipidemia (Chronic) Hypertension (Chronic) Hypothyroidism (Chronic) CVA (cerebral vascular accident) (Chronic) MRI demonstrated an acute infarct in the right thalamus and left parietal region. 01/2017 Medical History: Medical History (Last Updated 11/01/18 @ 14:18 by Krystin Erickson MD) Atherosclerotic heart disease of [place] coronary artery without angina pectoris (Chronic) I25.10 CABG X 2 CAN-LAD, SVG-CX 06/11/2014 @ [facility] per Dr. Sutton Paroxysmal atrial fibrillation (Chronic) I48.0 Stenosis of right carotid artery (Chronic) I65.21 Right bundle branch block (Chronic) I45.10 Hyperlipidemia (Chronic) E78.5 Hypertension (Chronic) I10 Hypothyroidism (Chronic) E03.9 CVA (cerebral vascular accident) (Chronic) I63.9 MRI demonstrated an acute infarct in the right thalamus and left parietal region. 01/2017 Allergies atorvastatin Allergy (Verified 10/31/18 12:48) Other muscle weakness codeine Allergy (Verified 10/31/18 12:48) Unknown levofloxacin [From Levaquin] Allergy (Verified 10/31/18 12:48) Pain in joints Penicillins Allergy (Verified 10/31/18 12:48) Swelling tongue swells and hives pravastatin Allergy (Verified 10/31/18 12:48) myalgia Sulfa (Sulfonamide Antibiotics) Allergy (Verified 10/31/18 12:48) Swelling tongue swell and hives Home Medications: Ambulatory Orders Medication Instructions Recorded Levothyroxine [Synthroid] 75 mcg PO DAILY 06/07/14 Bupropion HCl [Bupropion Xl] 150 mg PO DAILY 04/29/18 Venlafaxine XR [Effexor Xr] 150 mg PO DAILY 04/29/18 Aspirin [Aspirin, Baby] 81 mg PO DAILY@0800 05/01/18 clopidogrel 75 mg tablet 75 mg PO DAILY #90 tab 05/18/18 ALPRAZolam [Xanax] 0.25 mg PO QHS #14 tab 06/19/18 Acetaminophen [Tylenol] 1,000 mg PO Q6H PRN PRN tablet 06/19/18 Lisinopril [Prinivil] 10 mg PO DAILY 10/31/18 Potassium Chloride 10 meq PO DAILY 10/31/18 Melatonin 10 mg PO QHS 11/02/18 Surgical History: Surgical History (Last Updated 06/17/18 @ 19:50 by Pastora Weber) Stented coronary artery (Chronic) Onset Date: 04/13/15 Z95.5 IVUS left main 06/07/2014, PCI-FAREED Prox & Mid LAD S/P CABG x 2 (Chronic) Onset Date: 06/11/14 Z95.1 CABG X 2 CAN-LAD, SVG-CX @ [facility] per Dr. Sutton Surgical History: arthroscopy, knee, - - CABG x 2, PCI prior, ankle surgery, renal surgery, TKR. 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 Smoking Status: Never smoker - *Family History Maternal Family History: Family History (Last Reviewed 05/01/18 @ 13:14 by Moises Angelo MD) Father Heart disease Sister Cancer Uncle CAD (coronary artery disease) History Items: Stroke Paternal Family History: Family History (Last Reviewed 05/01/18 @ 13:14 by Moises Angelo MD) Father Heart disease Sister Cancer Uncle CAD (coronary artery disease) History Items: Heart Disease Sibling Family History: Family History (Last Reviewed 05/01/18 @ 13:14 by Moises Angelo MD) Father Heart disease Sister Cancer Uncle CAD (coronary artery disease) History Items: Cancer Review of Systems Constitutional: Denies: Chills, Fever, Weight Change Eyes: Reports: Vision Change - c/o unable to rotate or move right eye, double and blurred vision when opens eye HEENT: Reports: Difficulty Swallowing - on a mechanical soft and nectar thickened liquids at home Cardiovascular: Denies: Chest Pain, Palpitations Respiratory: Denies: Cough, Shortness of breath at rest, Sputum production Gastrointestinal: Denies: Abdominal Pain, Nausea, Vomiting Musculoskeletal: Denies: Joint Pain, Joint Tenderness Neurological: Reports: Blurred vision, Double vision, Difficulty swallowing Psychiatric: Reports: Anxiety, Depression - denies thoughts of feelings of anxiety or self harm. VTE Information - Inpt Only VTE Present on Admission: Yes VTE Mechan Device Prophylaxis: SCD's, Knee High DEVIKA Hose VTE Pharm Prophylaxis ordered?: Yes - Physical Exam General: Alert, Oriented x3, Cooperative HEENT: Atraumatic, PERRLA - unable to medially rotate right eye, but pupils equal and reactive bilaterally, Oral: Moist Mucosa Neck: Supple, No JVD Lungs: Clear to auscultation, Normal air movement Cardiovascular: Regular rate, Regular Rhythm, Normal S1, Normal S2, No murmurs Abdomen: Bowel Sounds Present, Soft, Non Tender, Non-Distended Musculoskeletal: No Tenderness to Palpation of Joints or Extremities Neurological: Deep Tendon Reflexes 2+/4 and Symmetrical - Cranial nerves II-XII intact,except for unable to medially rotate right eye. Left upper extremity pronator drift, strength 3/5. Right extremities strength 4/5 Psych/Mental Status: Normal Affect, Appropriate, Alert and oriented to time, place, person, mood and affect Vital Signs Temp Pulse Resp BP Pulse Ox 97.7 F L 77 16 148/101 H 97 11/02/18 15:14 11/02/18 15:14 11/02/18 15:14 11/02/18 15:14 11/02/18 15:14 Oxygen Delivery Method Room Air Weight: 77.72 kg Body Mass Index (BMI) 26.8 Finger Stick Blood Glucose 122 Assessment/Plan All Active Problems (Last Updated 11/01/18 @ 14:18 by Krystin Erickson MD) CVA (cerebral vascular accident) (Acute) The patient is a 78 year old female with PMH CAD, paroxysmal atrial fibrillation, HTN, hyperlipidemia, hypothyroidism, anxiety/depression and chronic severe ataxia with hx of prior brain tumor s/p radiation and prior left pontine infarct admitted to [facility] on 11/02/2018 with debility status post acute pontine infarct for greater than 3 hours of therapy daily with a goal of return back home at or near her prior level of functional independence. Patient presents to the [facility] ED on 10/31/18 with history of onset at 9:00 pm the evening prior, increased balance difficulties above baseline as well as vision changes w/ blurred and double vision with both eyes open and inability to medial rotate her R eye. She also had nausea, severely worsened debility with vision changes. NIH was 2 and was not a TPA candidate. On CTA of head w/wo contrast atherosclerotic calcifications at right carotid bulb and the proximal segment of the left vertebral artery with mild luminal narrowing; CT of brain without contrast showed chronic involutional changes; EKG NSR, Right BBB with no change from prior EKG in May,; CXR with no acute pathology. On 11/01/2018 CT and MRI of brain w/wo contrast showed tiny acute pontine infarct. On 11/02/2018 echocardiogram done with EF of 55-60%. Patient lives with spouse and is wheel chair bound and modified independence with all pivot transfers and ADLs, except has assist with showering and tub/shower transfers. Aspiration precautions and was on mechanical soft, nectar thickened liquids at home. Plan -PT for gait stability -OT for ADLs -ST for dysphagia -Analgesics as needed -Bowel protocol -Acute pontine infarct, history of prior left pontine infarct- Continue aspirin, Plavix. Reported allergy to statin. -Chronic severe ataxia with history of prior brain tumor status post radiation -CAD status post CABG x2 and PCI-continue aspirin, Plavix. -Paroxysmal atrial fibrillation-not on oral anticoagulation, Neurology discussed with patient will wait at this time -Hypertension-continue lisinopril -Hyperlipidemia-allergy to statin. -Hypothyroidism-continue Synthroid -Anxiety/depression-continue venlafaxine, bupropion, Xanax -Right bundle branch block-EKG on admission with right bundle branch block. No change from prior EKG May 2018 -DVT prophylaxis on Lovenox, Devika hose, SCDs -Further medical management per hospitalist recommendation, hospitalist consult -Follow-up with PCP and neurology as outpatient on discharge
--- NOTE | 2018-11-02 16:57 | HP.PCM.COS_ITS ---
Addendum entered and electronically signed by MARLY Hauser 11/02/18 18:56: Code Visit VTE Information - Inpt Only VTE Present on Admission: NO Original Note: History of Present Illness Date of Admission: 11/02/18 Chief Complaint: Debility status post acute pontine infarct The patient is a 78 year old female with PMH CAD, paroxysmal atrial fibrillation, HTN, hyperlipidemia, hypothyroidism, anxiety/depression and chronic severe ataxia with hx of prior brain tumor s/p radiation and prior left pontine infarct admitted to [facility] on 11/02/2018 with debility status post acute pontine infarct for greater than 3 hours of therapy daily with a goal of return back home at or near her prior level of functional independence. Patient presents to the [facility] ED on 10/31/18 with history of onset at 9:00 pm the evening prior, increased balance difficulties above baseline as well as vision changes w/ blurred and double vision with both eyes open and inability to medial rotate her R eye. She also had nausea, severely worsened debility with vision changes. NIH was 2 and was not a TPA candidate. On CTA of head w/wo contrast atherosclerotic calcifications at right carotid bulb and the proximal segment of the left vertebral artery with mild luminal narrowing; CT of brain without contrast showed chronic involutional changes; EKG NSR, Right BBB with no change from prior EKG in May,; CXR with no acute pathology. On 11/01/2018 CT and MRI of brain w/wo contrast showed tiny acute pontine infarct. On 11/02/2018 echocardiogram done with EF of 55-60%. Patient lives with spouse and is wheel chair bound and modified independence with all pivot transfers and ADLs, except has assist with showering and tub/shower transfers. Aspiration precautions and was on mechanical soft, nectar thickened liquids at home. Past Medical History Past Medical History (Chronic Problems): Chronic Problems (Last Updated 11/01/18 @ 14:18 by Krystin Erickson MD) Stented coronary artery (Chronic 04/13/15) IVUS left main 06/07/2014, PCI-FAREED Prox & Mid LAD S/P CABG x 2 (Chronic 06/11/14) CABG X 2 CAN-LAD, SVG-CX @ [facility] per Dr. Sutton Diabetes mellitus (Chronic) Sleep apnea (Chronic) Coronary artery disease (Chronic) Depression (Chronic) Atherosclerotic heart disease of [place] coronary artery without angina pectoris (Chronic) CABG X 2 CAN-LAD, SVG-CX 06/11/2014 @ [facility] per Dr. Sutton Paroxysmal atrial fibrillation (Chronic) Stenosis of right carotid artery (Chronic) Right bundle branch block (Chronic) Anxiety (Chronic) Hyperlipidemia (Chronic) Hypertension (Chronic) Hypothyroidism (Chronic) CVA (cerebral vascular accident) (Chronic) MRI demonstrated an acute infarct in the right thalamus and left parietal region. 01/2017 Medical History: Medical History (Last Updated 11/01/18 @ 14:18 by Krystin Erickson MD) Atherosclerotic heart disease of [place] coronary artery without angina pectoris (Chronic) I25.10 CABG X 2 CAN-LAD, SVG-CX 06/11/2014 @ [facility] per Dr. Sutton Paroxysmal atrial fibrillation (Chronic) I48.0 Stenosis of right carotid artery (Chronic) I65.21 Right bundle branch block (Chronic) I45.10 Hyperlipidemia (Chronic) E78.5 Hypertension (Chronic) I10 Hypothyroidism (Chronic) E03.9 CVA (cerebral vascular accident) (Chronic) I63.9 MRI demonstrated an acute infarct in the right thalamus and left parietal region. 01/2017 Allergies atorvastatin Allergy (Verified 10/31/18 12:48) Other muscle weakness codeine Allergy (Verified 10/31/18 12:48) Unknown levofloxacin [From Levaquin] Allergy (Verified 10/31/18 12:48) Pain in joints Penicillins Allergy (Verified 10/31/18 12:48) Swelling tongue swells and hives pravastatin Allergy (Verified 10/31/18 12:48) myalgia Sulfa (Sulfonamide Antibiotics) Allergy (Verified 10/31/18 12:48) Swelling tongue swell and hives Home Medications: Ambulatory Orders Medication Instructions Recorded Levothyroxine [Synthroid] 75 mcg PO DAILY 06/07/14 Bupropion HCl [Bupropion Xl] 150 mg PO DAILY 04/29/18 Venlafaxine XR [Effexor Xr] 150 mg PO DAILY 04/29/18 Aspirin [Aspirin, Baby] 81 mg PO DAILY@0800 05/01/18 clopidogrel 75 mg tablet 75 mg PO DAILY #90 tab 05/18/18 ALPRAZolam [Xanax] 0.25 mg PO QHS #14 tab 06/19/18 Acetaminophen [Tylenol] 1,000 mg PO Q6H PRN PRN tablet 06/19/18 Lisinopril [Prinivil] 10 mg PO DAILY 10/31/18 Potassium Chloride 10 meq PO DAILY 10/31/18 Melatonin 10 mg PO QHS 11/02/18 Surgical History: Surgical History (Last Updated 06/17/18 @ 19:50 by Pastora Weber) Stented coronary artery (Chronic) Onset Date: 04/13/15 Z95.5 IVUS left main 06/07/2014, PCI-FAREED Prox & Mid LAD S/P CABG x 2 (Chronic) Onset Date: 06/11/14 Z95.1 CABG X 2 CAN-LAD, SVG-CX @ [facility] per Dr. Sutton Surgical History: arthroscopy, knee, - - CABG x 2, PCI prior, ankle surgery, renal surgery, TKR. 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 Smoking Status: Never smoker - *Family History Maternal Family History: Family History (Last Reviewed 05/01/18 @ 13:14 by Moises Angelo MD) Father Heart disease Sister Cancer Uncle CAD (coronary artery disease) History Items: Stroke Paternal Family History: Family History (Last Reviewed 05/01/18 @ 13:14 by Moises Angelo MD) Father Heart disease Sister Cancer Uncle CAD (coronary artery disease) History Items: Heart Disease Sibling Family History: Family History (Last Reviewed 05/01/18 @ 13:14 by Moises Angelo MD) Father Heart disease Sister Cancer Uncle CAD (coronary artery disease) History Items: Cancer Review of Systems Constitutional: Denies: Chills, Fever, Weight Change Eyes: Reports: Vision Change - c/o unable to rotate or move right eye, double and blurred vision when opens eye HEENT: Reports: Difficulty Swallowing - on a mechanical soft and nectar thickened liquids at home Cardiovascular: Denies: Chest Pain, Palpitations Respiratory: Denies: Cough, Shortness of breath at rest, Sputum production Gastrointestinal: Denies: Abdominal Pain, Nausea, Vomiting Musculoskeletal: Denies: Joint Pain, Joint Tenderness Neurological: Reports: Blurred vision, Double vision, Difficulty swallowing Psychiatric: Reports: Anxiety, Depression - denies thoughts of feelings of anxiety or self harm. VTE Information - Inpt Only VTE Present on Admission: Yes VTE Mechan Device Prophylaxis: SCD's, Knee High DEVIKA Hose VTE Pharm Prophylaxis ordered?: Yes - Physical Exam General: Alert, Oriented x3, Cooperative HEENT: Atraumatic, PERRLA - unable to medially rotate right eye, but pupils equal and reactive bilaterally, Oral: Moist Mucosa Neck: Supple, No JVD Lungs: Clear to auscultation, Normal air movement Cardiovascular: Regular rate, Regular Rhythm, Normal S1, Normal S2, No murmurs Abdomen: Bowel Sounds Present, Soft, Non Tender, Non-Distended Musculoskeletal: No Tenderness to Palpation of Joints or Extremities Neurological: Deep Tendon Reflexes 2+/4 and Symmetrical - Cranial nerves II-XII intact,except for unable to medially rotate right eye. Left upper extremity pronator drift, strength 3/5. Right extremities strength 4/5 Psych/Mental Status: Normal Affect, Appropriate, Alert and oriented to time, place, person, mood and affect Vital Signs Temp Pulse Resp BP Pulse Ox 97.7 F L 77 16 148/101 H 97 11/02/18 15:14 11/02/18 15:14 11/02/18 15:14 11/02/18 15:14 11/02/18 15:14 Oxygen Delivery Method Room Air Weight: 77.72 kg Body Mass Index (BMI) 26.8 Finger Stick Blood Glucose 122 Assessment/Plan All Active Problems (Last Updated 11/01/18 @ 14:18 by Krystin Erickson MD) CVA (cerebral vascular accident) (Acute) The patient is a 78 year old female with PMH CAD, paroxysmal atrial fibrillation, HTN, hyperlipidemia, hypothyroidism, 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 Patient presents to the [facility] ED on 10/31/18 with history of onset at 9:00 pm the evening prior, increased balance difficulties above baseline as well as vision changes w/ blurred and double vision with both eyes open and inability to medial rotate her R eye. She also had nausea, severely worsened debility with vision changes. NIH was 2 and was not a TPA candidate. On CTA of head w/wo contrast atherosclerotic calcifications at right carotid bulb and the proximal segment of the left vertebral artery with mild luminal narrowing; CT of brain without contrast showed chronic involutional changes; EKG NSR, Right BBB with no change from prior EKG in May,; CXR with no acute pathology. On 11/01/2018 CT and MRI of brain w/wo contrast showed tiny acute pontine infarct. On 11/02/2018 echocardiogram done with EF of 55-60%. Patient lives with spouse and is wheel chair bound and modified independence with all pivot transfers and ADLs, except has assist with showering and tub/shower transfers. Aspiration precautions and w as on mechanical soft, nectar thickened liquids at home. Plan -PT for gait stability -OT for ADLs -ST for dysphagia -Analgesics as needed -Bowel protocol -Acute pontine infarct, history of prior left pontine infarct- Continue aspirin, Plavix. Reported allergy to statin. -Chronic severe ataxia with history of prior brain tumor status post radiation -CAD status post CABG x2 and PCI-continue aspirin, Plavix. -Paroxysmal atrial fibrillation-not on oral anticoagulation, Neurology discussed with patient will wait at this time -Hypertension-continue lisinopril -Hyperlipidemia-allergy to statin. -Hypothyroidism-continue Synthroid -Anxiety/depression-continue venlafaxine, bupropion, Xanax -Right bundle branch block-EKG on admission with right bundle branch block. No change from prior EKG May 2018 -DVT prophylaxis on Lovenox, Devika hose, SCDs -Further medical management per hospitalist recommendation, hospitalist consult -Follow-up with PCP and neurology as outpatient on discharge
[2018-11-02 20:16] VITALS: BP 152/83; PULSE 72; RESP 18; TEMP 36.7; O2SAT 96
[2018-11-02] MEDS: MELATONIN 10 MG TABLET PO (20:31)
[2018-11-02] MEDS: ALPRAZolam 0.25 MG Tablet PO (20:31)
[2018-11-02] MEDS: Senna/Docusate Sodium 1 Tablet 2 TABLET PO (20:31)
[2018-11-03 05:42] LABS: Absolute Lymphocyte Count 1.52 X10^3/ul (0.83-4.51); Absolute Neutrophil Count 3.3 X10^3/uL (2.0-7.7); Basophil# 0.03 X10^3/uL; Basophil% 0.5 % (0-1); Eosinophil# 0.23 X10^3/uL; Hematocrit 39.9 % (37-47); Hemoglobin 13.5 g/dl (12.0-15.0); Lymphocyte # 1.52 X10^3/ul (4.0); Lymphocyte % 26.6 % (19-41); Mean Corp Hgb Conc 33.8 g/gl (32-36); Mean Corpuscular Hgb 31.9 pg (27.0-32.0); Mean Corpuscular Volume 94.3 fL (81-99); Mean Platelet Vol. 9.4 fl (6.2-12.0); Monocyte# 0.62 X10^3/uL; Monocyte% 10.8 % (0-10); Neutrophil # 3.31 X10^3/uL (2.7-7.7); Neutrophil % 57.9 % (47-70); Platelet Count 277 K/mm3 (150-450); RBC Distribution Width CV 13.3 % (11.6-14.6); RBC Distribution Width SD 44.7 fl (35.1-43.9); Red Blood Count 4.23 M/mm3 (4.2-5.4); White Blood Count 5.7 K/mm3 (4.4-11.0)
[2018-11-03 05:44] LABS: POSITIVE COUNT NO; POSITIVE DIFFERENTIAL NO; POSITIVE MORPHOLOGY NO
[2018-11-03 05:55] VITALS: O2SAT 96
[2018-11-03] MEDS: Levothyroxine 75 MCG Tablet PO (06:13)
[2018-11-03] MEDS: Enoxaparin 40 MG/0.4 ML Syringe SC (06:13)
[2018-11-03 06:24] LABS: Anion Gap 6 (5-15); BUN 7 mg/dL (7-18); Calcium,Total 8.7 mg/dL (8.5-10.1); Chloride 107 mmol/L (98-107); Creatinine, Serum 0.78 mg/dL (0.55-1.02); EST Glomerular Filtration Rate 76 mL/min (>60); Est Glom Filt Rate - Afr Amer 92 mL/min (>60); Estimated Creatinine Clearance 45.09 ml/min; Glucose 85 mg/dL (74-106); Potassium 3.9 mmol/L (3.5-5.1); Sodium Level 140 mmol/L (136-145)
[2018-11-03 07:26] VITALS: BP 128/92; PULSE 80; RESP 18; TEMP 36.6; O2SAT 95
[2018-11-03] MEDS: buPROPion (XL) 150 MG TABLET.XL PO (07:53)
[2018-11-03] MEDS: Lisinopril 10 MG Tablet PO (07:53)
[2018-11-03] MEDS: Aspirin 81 MG TAB.CHEW PO (07:53)
[2018-11-03] MEDS: Venlafaxine XR 150 MG Capsule PO (07:53)
[2018-11-03] MEDS: Clopidogrel Bisulfate 75 MG Tablet PO (07:53)
[2018-11-03] MEDS: Senna/Docusate Sodium 1 Tablet 2 TABLET PO ×2 (07:53→22:00)
--- NOTE | 2018-11-03 09:44 | PN.NEURO_ITS ---
Subjective: Per nursing no issues overnight. Per patient vision to right eye is improving, decrease blurred and double vision. Patient is rotating eye patch. Patient is now able to keep right eyelid open more. - Physical Exam General: Alert, Oriented x3, Cooperative HEENT: Atraumatic, PERRLA, EOMI, Normocephalic Oral: Moist Mucosa Neck: Supple, No JVD, Negative Carotid Bruits Lungs: Clear to auscultation, Normal air movement Cardiovascular: Regular rate, Regular Rhythm Abdomen: Bowel Sounds Present, Soft, Non Tender Extremities: No edema, Capillary Refill Less than 3 Seconds Musculoskeletal: No Tenderness to Palpation of Joints or Extremities Neurological: - - Deep Tendon Reflexes 2+/4 and Symmetrical - Cranial nerves II- XII intact,except for unable to medially rotate right eye. Left upper extremity pronator drift, strength 3/5. Right extremities strength 4/5 Psych/Mental Status: Normal Affect, Appropriate, Alert and oriented to time, place, person, mood and affect Vital Signs Temp Pulse Resp BP Pulse Ox 97.9 F 80 18 128/92 H 95 11/03/18 07:26 11/03/18 07:26 11/03/18 07:26 11/03/18 07:26 11/03/18 07:26 Oxygen Delivery Method Room Air Weight: 77.72 kg Body Mass Index (BMI) 26.8 Finger Stick Blood Glucose 122 Intake and Output for Last 24 Hours 11/01/18 11/02/18 11/03/18 23:59 23:59 23:59 Intake Total 660 / 660 60 / 60 Output Total 450 / 450 950 / 950 Balance 210 / 210 -890 / -890 Laboratory Tests Past 24 Hrs 11/03/18 11/03/18 05:25 05:25 WBC 5.7 RBC 4.23 Hgb 13.5 Hct 39.9 MCV 94.3 MCH 31.9 MCHC 33.8 RDW 13.3 RDW Differential 44.7 H Plt Count 277 MPV 9.4 Immature Gran % (Auto) 0.200 Neut % (Auto) 57.9 Lymph % (Auto) 26.6 Dougherty % (Auto) 10.8 H Eos % (Auto) 4.0 Baso % (Auto) 0.5 Absolute Neuts (auto) 3.3 Absolute Lymphs (auto) 1.52 Total Counted Not Reportable Sodium 140 Potassium 3.9 Chloride 107 Carbon Dioxide 27.0 Anion Gap 6 BUN 7 Creatinine 0.78 Estim Creat Clear Calc 45.09 Est GFR (MDRD) Af Amer 92 Est GFR (MDRD) Non-Af 76 BUN/Creatinine Ratio 9.0 L Glucose 85 Calcium 8.7 Medical Necessity - Tobacco Use Smoking Status: Never smoker Assessment/Plan All Active Problems (Last Updated 11/01/18 @ 14:18 by Krystin Erickson MD) CVA (cerebral vascular accident) (Acute) The patient is a 78 year old female with PMH CAD, paroxysmal atrial fibrillation, HTN, hyperlipidemia, hypothyroidism, anxiety/depression and chronic severe ataxia with hx of prior brain tumor s/p radiation and prior left pontine infarct admitted to [facility] IP RU on 11/02/2018 with debility status post acute pontine infarct for greater than 3 hours of therapy daily with a goal of return back home at or near her prior level of functional independence. Patient presents to the [facility] ED on 10/31/18 with history of onset at 9:00 pm the evening prior, increased balance difficulties above baseline as well as vision changes w/ blurred and double vision with both eyes open and inability to medial rotate her R eye. She also had nausea, severely worsened debility with vision changes. NIH was 2 and was not a TPA candidate. On CTA of head w/wo contrast atherosclerotic calcifications at right carotid bulb and the proximal segment of the left vertebral artery with mild luminal narrowing; CT of brain without contrast showed chronic involutional changes; EKG NSR, Right BBB with no change from prior EKG in May,; CXR with no acute pathology. On 11/01/2018 CT and MRI of brain w/wo contrast showed tiny acute pontine infarct. On 11/02/2018 echocardiogram done with EF of 55-60%. Patient lives with spouse and is wheel chair bound and modified independence with all pivot transfers and ADLs, except has assist with showering and tub/shower transfers. Aspiration precautions and was on mechanical soft, nectar thickened liquids at home. Plan -PT for gait stability -OT for ADLs -ST for dysphagia -Analgesics as needed -Bowel protocol -Acute pontine infarct, history of prior left pontine infarct- Continue aspirin, Plavix. Reported allergy to statin. -Chronic severe ataxia with history of prior brain tumor status post radiation -CAD status post CABG x2 and PCI-continue aspirin, Plavix. -Paroxysmal atrial fibrillation-not on oral anticoagulation, Neurology discussed with patient will wait at this time -Hypertension-continue lisinopril -Hyperlipidemia-allergy to statin. -Hypothyroidism-continue Synthroid -Anxiety/depression-continue venlafaxine, bupropion, Xanax -Right bundle branch block-EKG on admission with right bundle branch block. No change from prior EKG May 2018 -DVT prophylaxis on Lovenox, Josh hose, SCDs -Further medical management per hospitalist recommendation, hospitalist consult -Follow-up with PCP and neurology as outpatient on discharge
--- NOTE | 2018-11-03 12:29 | PCM.RU.PYE ---
Admission Information Status Changes from Prescreening?: No changes Identified Actual Problem List:: Cognitve Impr/Memory Loss, Alteration in Nutrition, Mobility Impaired, Self Care Deficit Potential Problem List:: DVT, Bleeding, Infection, UTI, Aspiration, Falls, Skin Integrity, Depression Risk of Complications DVT: LMWH, DEVIKA Hose, Sequential Compression Device Bleeding: Monitor Lab Values, Nursing to Teach Precautions for anti-coagulation therapy., Wound, if applicable, to be assessed every shift., Stroke patients assessed for lethargy or change in status. Infection: Clinical Staff to Monitor for S/S of infection:, S/S of infection include fever, redness, warmth, etc. Urinary Tract Infection: Monitor for frequency, burning, discomfort, or incontinence., Nursing will obtain urine sample for urinalysis and C&S when ordered. Aspiration: Clinical staff will monitor for coughing, drooling, congestion., Speech will evaluate swallowing and dsyphasia., Nursing will monitor patient swallowing during meals. Falls: Patient will be evaluated for Fall Precautions, Patient will be placed on Fall Precautions as indicated per protocol. Skin Breakdown: Nursing will assess skin daily using assessment tool., Nursing will place on Skin Breakdown Precautions as indicated. Pain: Clinical staff will assess patient's pain level per protocol., Medications will be given, if needed, and the pain level reassessed., Other methods: Massage, distraction, decrease stimulus, etc. used PRN. Plan of Care Patient requires physician specializing in physical medicine and rehab oversight to provide close medical supervision of rehab issues including: Pain Management, Sleep Problems, Bowel and Bladder, Medical and co-morbidity Management, DVT prophylaxis, Rehabilitation Leadership, Coordination of treatment team Patient needs Physical Therapy: For a minimum of 1 hour, At least 5 out of 7 days Patient needs Physical Therapy to improve:: Mobility, Mobility, Mobility, Strengthening, Transfers, Stretching, ROM, Endurance, Stairs, Gait, Balance Patient needs Occupational Therapy: For a minimum of 1 hour, At least 5 out of 7 days Patient needs Occupational Therapy to improve ADL's incl.: Eating, Grooming, Bathing, Dressing, Toileting, Toilet transfers, Community Reintegration, Higher functioning activities, Household tasks, Adaptive Equipment, Splinting, Other activities as determined Patient requires speech therapy: For a minimum of 1 hour, At least 5 out of 7 days Patient requires speech therapy for: Swallowing, Cognition, Language Skills, Compensatory Strategies Patient requires 24/7 Rehabilitation Nursing for: Pain Issues, Identifying and preventing risk factors, Monitoring and reporting current medical conditions, Assisting with ambulation, transfer, and all ADL's, Teaching patients about disease process and medications, Family teaching, Providing safe environment, Bowel and Bladder Issues, Skin integrity, Medication Management Patient needs Molecular Modeler/ Case Management for: Discharge Planning, Arranging Home Equipment or Services, Family Interventions Patient needs Dietary and Nutrition Services for: Adequate Nutrition, Nutritional Supplements, Nutritional Education Goals Patient will remain: free from falls, or injury at time of discharge. Patient will perform bed mobility at: MOD I level of assist. Patient will complete transfers from bed to chair at: MOD I level of assist. Patient will ambulate: 100 feet, with MOD I assist, with LRD Patient will complete upper body dressing at: MOD I level of assist. Patient will complete lower body dressing at: MOD I level of assist. Patient will complete toileting at: MOD I level of assist. Patient will perform bathing at: MOD I level of assist. Patient will complete grooming at: MOD I level of assist. Patient will complete home management skills at: MOD I level of assist. Patient will achieve: 12 stairs, at MOD I assist Patient will have pain level of: of 3 or less Patient's skin will: remain intact, free from infection. Patient will receive: adequate nutrition. Discharge Planning Pt Prognosis for Sig. Practical Improv. w/in Reasonable Time: Good Anticipated D/C Destination: Home with Outpt Therapy Was Preadmission Assessment Accurate?: Yes
[2018-11-03 19:45] VITALS: BP 119/78; PULSE 78; RESP 16; TEMP 36.4; O2SAT 95
[2018-11-03 22:00] VITALS: RESP 16
[2018-11-03] MEDS: ALPRAZolam 0.25 MG Tablet PO (22:00)
[2018-11-03] MEDS: MELATONIN 10 MG TABLET PO (22:00)
[2018-11-04] MEDS: Levothyroxine 75 MCG Tablet PO (05:19)
[2018-11-04] MEDS: Enoxaparin 40 MG/0.4 ML Syringe SC (05:20)
[2018-11-04 06:32] VITALS: O2SAT 97
[2018-11-04 07:47] VITALS: BP 125/87; PULSE 65; RESP 18; TEMP 36.6; O2SAT 96
[2018-11-04] MEDS: Senna/Docusate Sodium 1 Tablet 2 TABLET PO (08:14)
[2018-11-04] MEDS: buPROPion (XL) 150 MG TABLET.XL PO (08:14)
[2018-11-04] MEDS: Clopidogrel Bisulfate 75 MG Tablet PO (08:14)
[2018-11-04] MEDS: Lisinopril 10 MG Tablet PO (08:14)
[2018-11-04] MEDS: Aspirin 81 MG TAB.CHEW PO (08:15)
[2018-11-04] MEDS: Venlafaxine XR 150 MG Capsule PO (08:15)
--- NOTE | 2018-11-04 14:04 | PN.NEURO_ITS ---
Subjective: Per nursing no issues overnight. Per patient vision to right eye is improving, decrease blurred and double vision. Patient is rotating eye patch. Patient is now able to keep right eyelid open more. Denies any questions or concerns. - Physical Exam General: Alert, Oriented x3, Cooperative HEENT: Atraumatic, PERRLA Oral: Moist Mucosa Neck: Supple, No JVD Lungs: Clear to auscultation, Normal air movement Abdomen: Bowel Sounds Present, Soft, Non Tender Musculoskeletal: No Tenderness to Palpation of Joints or Extremities Neurological: - - Deep Tendon Reflexes 2+/4 and Symmetrical - Cranial nerves II- XII intact,except for unable to medially rotate right eye. Left upper extremity pronator drift, strength 3/5. Right extremities strength 4/5 Psych/Mental Status: Normal Affect, Appropriate, Alert and oriented to time, place, person, mood and affect Vital Signs Temp Pulse Resp BP Pulse Ox 97.8 F 65 18 125/87 H 96 11/04/18 07:47 11/04/18 07:47 11/04/18 07:47 11/04/18 07:47 11/04/18 07:47 Oxygen Delivery Method Room Air Weight: 77.5 kg Body Mass Index (BMI) 26.8 Finger Stick Blood Glucose 122 Intake and Output for Last 24 Hours 11/02/18 11/03/18 11/04/18 23:59 23:59 23:59 Intake Total 660 / 660 300 / 300 Output Total 450 / 450 950 / 950 Balance 210 / 210 -650 / -650 Medical Necessity - Tobacco Use Smoking Status: Never smoker Assessment/Plan All Active Problems (Last Updated 11/01/18 @ 14:18 by Krystin Erickson MD) CVA (cerebral vascular accident) (Acute) The patient is a 78 year old female with PMH CAD, paroxysmal atrial fibrillation, HTN, hyperlipidemia, hypothyroidism, anxiety/depression and chronic severe ataxia with hx of prior brain tumor s/p radiation and prior left pontine infarct admitted to [facility] on 11/02/2018 with debility status post acute pontine infarct for greater than 3 hours of therapy daily with a goal of return back home at or near her prior level of functional independence. Patient presents to the [facility] ED on 10/31/18 with history of onset at 9:00 pm the evening prior, increased balance difficulties above baseline as well as vision changes w/ blurred and double vision with both eyes open and inability to medial rotate her R eye. She also had nausea, severely worsened debility with vision changes. NIH was 2 and was not a TPA candidate. On CTA of head w/wo contrast atherosclerotic calcifications at right carotid bulb and the proximal segment of the left vertebral artery with mild luminal narrowing; CT of brain without contrast showed chronic involutional changes; EKG NSR, Right BBB with no change from prior EKG in May,; CXR with no acute pathology. On 11/01/2018 CT and MRI of brain w/wo contrast showed tiny acute pontine infarct. On 11/02/2018 echocardiogram done with EF of 55-60%. Patient lives with spouse and is wheel chair bound and modified independence with all pivot transfers and ADLs, except has assist with showering and tub/shower transfers. Aspiration precautions and was on mechanical soft, nectar thickened liquids at home. Plan -PT for gait stability -OT for ADLs -ST for dysphagia -Analgesics as needed -Bowel protocol -Acute pontine infarct, history of prior left pontine infarct- Continue aspirin, Plavix. Reported allergy to statin. -Chronic severe ataxia with history of prior brain tumor status post radiation -CAD status post CABG x2 and PCI-continue aspirin, Plavix. -Paroxysmal atrial fibrillation-not on oral anticoagulation, Neurology discussed with patient will wait at this time -Hypertension-continue lisinopril -Hyperlipidemia-allergy to statin. -Hypothyroidism-continue Synthroid -Anxiety/depression-continue venlafaxine, bupropion, Xanax -Right bundle branch block-EKG on admission with right bundle branch block. No change from prior EKG May 2018 -DVT prophylaxis on Lovenox, Josh hose, SCDs -Further medical management per hospitalist recommendation, hospitalist consult -Follow-up with PCP and neurology as outpatient on discharge
--- NOTE | 2018-11-04 15:59 | PN_ITS ---
Subjective: Patient was seen and examined. She was admitted inpatient rehab with debility status post acute pontine infarct. She denied any new complaints. Denied any dizziness or palpitations or shortness of breath. She has a right eye patch. Therapy has been going well. Objective: Physical Exam General: Alert, Oriented x3, Cooperative, No apparent distress HEENT: Atraumatic, PERRLA, EOMI, Normocephalic Neck: Supple, No JVD, Negative Carotid Bruits Lungs: Clear to auscultation, Normal air movement Cardiovascular: Regular rate, Regular Rhythm, Normal S1, Normal S2, No murmurs Abdomen: Bowel Sounds Present, Soft, Non Tender Extremities: No edema Skin: No rashes, No breakdown Musculoskeletal: No Tenderness to Palpation of Joints or Extremities Lymphatic: No Cervical, Supraclavicular, or Inguinal Adenopathy Neurological: - - Double vision with blurred vision on opening both eyes, right eye cannot cross midline on adduction, minimal left facial droop. Other cranial nerves are intact, normal power and tone in all 4 limbs. Psych/Mental Status: Normal Affect, Appropriate Vitals/I&O's: Vital Signs Temp Pulse Resp BP Pulse Ox 97.8 F 65 18 125/87 H 96 11/04/18 07:47 11/04/18 07:47 11/04/18 07:47 11/04/18 07:47 11/04/18 07:47 Oxygen Delivery Method Room Air Weight: 77.5 kg Body Mass Index (BMI) 26.8 Finger Stick Blood Glucose 122 Intake and Output for Last 24 Hours 11/02/18 11/03/18 11/04/18 23:59 23:59 23:59 Intake Total 660 / 660 300 / 300 Output Total 450 / 450 950 / 950 Balance 210 / 210 -650 / -650 Current Medications Acetaminophen (Tylenol) 1,000 mg PO Q6H PRN PRN PRN Reason: MILD PAIN (1-3/10) Alprazolam (Xanax) 0.25 mg PO QHS [facility] Last Admin: 11/03/18 22:00 Dose: 0.25 mg Aspirin (Aspirin, Baby) 81 mg PO DAILY@0800 [facility] Last Admin: 11/04/18 08:15 Dose: 81 mg Bisacodyl (Dulcolax) 10 mg RECTAL .PRN X 1 PRN PRN Reason: Constipation Bupropion HCl (Wellbutrin Xl) 150 mg PO DAILY [facility] Last Admin: 11/04/18 08:14 Dose: 150 mg Clopidogrel Bisulfate (Plavix) 75 mg PO DAILY [facility] Last Admin: 11/04/18 08:14 Dose: 75 mg Enoxaparin Sodium (Lovenox) 40 mg SC DAILY@0600 [facility] Last Admin: 11/04/18 05:20 Dose: 40 mg Levothyroxine Sodium (Synthroid) 75 mcg PO DAILY@0600 [facility] Last Admin: 11/04/18 05:19 Dose: 75 mcg Lisinopril (Zestril) 10 mg PO DAILY [facility] Last Admin: 11/04/18 08:14 Dose: 10 mg Magnesium Hydroxide (Milk Of Magnesia) 30 ml PO .PRN X 1 PRN PRN Reason: Constipation Melatonin (Melatonin) 10 mg PO QHS [facility] Last Admin: 11/03/18 22:00 Dose: 10 mg Potassium Chloride (K-Dur) 10 meq PO DAILY [facility] Last Admin: 11/04/18 08:14 Dose: 10 meq Senna/Docusate Sodium (Senokot-S, Yessy-Colace) 2 tablet PO BID [facility] Last Admin: 11/04/18 08:14 Dose: 2 tablet Venlafaxine HCl (Effexor Xr) 150 mg PO DAILY [facility] Last Admin: 11/04/18 08:15 Dose: 150 mg Medical Necessity - Tobacco Use Smoking Status: Never smoker Tobacco Use: Non-smoker Assessment/Plan All Active Problems (Last Updated 11/01/18 @ 14:18 by Krystin Erickson MD) CVA (cerebral vascular accident) (Acute) 1. Acute debility secondary to acute pontine infarct, residual right-sided paralysis, chronic severe ataxia, PT and OT is ongoing. 2. CAD status post CABG, PCI, on aspirin, plavix 3. Paroxysmal atrial fibrillation, in NSR, not on anticoagulation, on account of frequent falls 4. Hypertension, controlled, on Lisinopril 5. Hypothyroidism, on levothyoxine 7. Anxiety/depression, on xanax, wellbutrin, effexor 8. DVT ppx- Lovenox SC Code Visit Inpatient E&M: 66396 Subs Hosp L2
[2018-11-04 19:34] VITALS: BP 132/86; PULSE 74; RESP 16; TEMP 36.7; O2SAT 97
[2018-11-04] MEDS: ALPRAZolam 0.25 MG Tablet PO (20:47)
[2018-11-04] MEDS: MELATONIN 10 MG TABLET PO (20:47)
[2018-11-04 22:00] VITALS: PULSE 74; RESP 17; O2SAT 97
[2018-11-05] MEDS: Levothyroxine 75 MCG Tablet PO (06:01)
[2018-11-05] MEDS: Enoxaparin 40 MG/0.4 ML Syringe SC (06:01)
[2018-11-05 07:11] VITALS: BP 121/80; PULSE 64; RESP 18; TEMP 36.5; O2SAT 96
[2018-11-05] MEDS: buPROPion (XL) 150 MG TABLET.XL PO (07:51)
[2018-11-05] MEDS: Lisinopril 10 MG Tablet PO (07:51)
[2018-11-05] MEDS: Venlafaxine XR 150 MG Capsule PO (07:51)
[2018-11-05] MEDS: Aspirin 81 MG TAB.CHEW PO (07:51)
[2018-11-05] MEDS: Clopidogrel Bisulfate 75 MG Tablet PO (07:51)
--- NOTE | 2018-11-05 11:56 | CASEMGMT ---
Team meeting held today with pt and daughter present. Pt is receiving PT/OT/ST and progressing with therapy. Pt dgt confirms that pt will be returning home upon d/c with assistance of spouse and dgt. Dgt also states she has met with [employer] adult protective caseworker and pt has applied for services. At this time pt is waiting for approval from [facility]. Pt and dgt requesting information on medical alert system upon d/c as well. Will continue with treatment plan at this time and reteam next week. NADIYA Nelson
--- NOTE | 2018-11-05 12:32 | PN.NEURO_ITS ---
Subjective: Per nursing no issues overnight. Team meeting held today and per therapies she is increasing her strength and mobility, but continues to remain on mechanical soft diet and nectar thickened liquids per speech therapy. Patient is now able to slightly move righty eye and voiced that her blurred and double vision is improving. patient continues to rotate eye patch and will be re-teamed next week. - Physical Exam General: Alert, Oriented x3, Cooperative HEENT: Atraumatic, PERRLA Oral: Moist Mucosa Neck: Supple, No JVD Lungs: Clear to auscultation, Normal air movement Cardiovascular: Regular rate, Regular Rhythm Abdomen: Bowel Sounds Present, Soft, Non Tender Extremities: No clubbing, No cyanosis, No edema Musculoskeletal: No Tenderness to Palpation of Joints or Extremities Neurological: - - Deep Tendon Reflexes 2+/4 and Symmetrical - Cranial nerves II- XII intact,except for minimal movement to medially rotate right eye. Left upper extremity pronator drift, strength 3/5. Right extremities strength 4/5 Psych/Mental Status: Normal Affect, Appropriate, Alert and oriented to time, place, person, mood and affect Vital Signs Temp Pulse Resp BP Pulse Ox 97.7 F L 64 18 121/80 H 96 11/05/18 07:11 11/05/18 07:11 11/05/18 07:11 11/05/18 07:11 11/05/18 07:11 Oxygen Delivery Method Room Air Weight: 77.5 kg Body Mass Index (BMI) 26.8 Finger Stick Blood Glucose 122 Intake and Output for Last 24 Hours 11/03/18 11/04/18 11/05/18 23:59 23:59 23:59 Intake Total 300 / 300 Output Total 950 / 950 Balance -650 / -650 Medical Necessity - Tobacco Use Smoking Status: Never smoker Tobacco Use: Non-smoker Assessment/Plan All Active Problems (Last Updated 11/01/18 @ 14:18 by Krystin Erickson MD) CVA (cerebral vascular accident) (Acute) The patient is a 78 year old female with PMH CAD, paroxysmal atrial fibrillation, HTN, hyperlipidemia, hypothyroidism, anxiety/depression and chronic severe ataxia with hx of prior brain tumor s/p radiation and prior left pontine infarct admitted to [facility] on 11/02/2018 with debility status post acute pontine infarct for greater than 3 hours of therapy daily with a goal of return back home at or near her prior level of functional independence. Patient presents to the [facility] ED on 10/31/18 with history of onset at 9:00 pm the evening prior, increased balance difficulties above baseline as well as vision changes w/ blurred and double vision with both eyes open and inability to medial rotate her R eye. She also had nausea, severely worsened debility with vision changes. NIH was 2 and was not a TPA candidate. On CTA of head w/wo contrast atherosclerotic calcifications at right carotid bulb and the proximal segment of the left vertebral artery with mild luminal narrowing; CT of brain without contrast showed chronic involutional changes; EKG NSR, Right BBB with no change from prior EKG in May,; CXR with no acute pathology. On 11/01/2018 CT and MRI of brain w/wo contrast showed tiny acute pontine infarct. On 11/02/2018 echocardiogram done with EF of 55-60%. Patient lives with spouse and is wheel chair bound and modified independence with all pivot transfers and ADLs, except has assist with showering and tub/shower transfers. Aspiration precautions and was on mechanical soft, nectar thickened liquids at home. Plan -PT for gait stability -OT for ADLs -ST for dysphagia -Analgesics as needed -Bowel protocol -Acute pontine infarct, history of prior left pontine infarct- Continue aspirin, Plavix. Reported allergy to statin. -Chronic severe ataxia with history of prior brain tumor status post radiation -CAD status post CABG x2 and PCI-continue aspirin, Plavix. -Paroxysmal atrial fibrillation-not on oral anticoagulation, Neurology discussed with patient will wait at this time -Hypertension-continue lisinopril -Hyperlipidemia-allergy to statin. -Hypothyroidism-continue Synthroid -Anxiety/depression-continue venlafaxine, bupropion, Xanax -Right bundle branch block-EKG on admission with right bundle branch block. No change from prior EKG May 2018 -DVT prophylaxis on Lovenox, Josh hose, SCDs -Further medical management per hospitalist recommendation, hospitalist consult -Follow-up with PCP and neurology as outpatient on discharge
[2018-11-05 13:20] VITALS: O2SAT 93
[2018-11-05 19:54] VITALS: BP 137/72; PULSE 71; RESP 16; TEMP 36.6; O2SAT 92
[2018-11-05] MEDS: MELATONIN 10 MG TABLET PO (21:31)
[2018-11-05] MEDS: ALPRAZolam 0.25 MG Tablet PO (21:31)
[2018-11-06] MEDS: Enoxaparin 40 MG/0.4 ML Syringe SC (05:17)
[2018-11-06] MEDS: Levothyroxine 75 MCG Tablet PO (05:17)
[2018-11-06 07:00] VITALS: BP 129/79; PULSE 65; RESP 16; TEMP 36.4; O2SAT 93
[2018-11-06] MEDS: Clopidogrel Bisulfate 75 MG Tablet PO (09:34)
[2018-11-06] MEDS: Lisinopril 10 MG Tablet PO (09:34)
[2018-11-06] MEDS: buPROPion (XL) 150 MG TABLET.XL PO (09:34)
[2018-11-06] MEDS: Venlafaxine XR 150 MG Capsule PO (09:34)
[2018-11-06] MEDS: Aspirin 81 MG TAB.CHEW PO (09:34)
--- NOTE | 2018-11-06 12:40 | PN.NEURO_ITS ---
Subjective: Per nursing no issues overnight. per patient double and blurred vision slightly improving daily to right eye. patient continues to rotate eye patch and voices that this she is able to walk further distances. Patient denies any further questions or concerns at this time. - Physical Exam General: Alert, Oriented x3, Cooperative HEENT: Atraumatic, PERRLA Oral: Moist Mucosa Neck: Supple, No JVD Lungs: Clear to auscultation, Normal air movement Cardiovascular: Regular rate, Regular Rhythm Abdomen: Bowel Sounds Present, Soft, Non Tender Extremities: No clubbing, No cyanosis, No edema Musculoskeletal: No Tenderness to Palpation of Joints or Extremities - Deep Tendon Reflexes 2+/4 and Symmetrical - Cranial nerves II-XII intact,except for minimal movement to medially rotate right eye. Left upper extremity pronator drift, strength 3/5. Right extremities strength 4/5 Psych/Mental Status: Normal Affect, Appropriate, Alert and oriented to time, place, person, mood and affect Vital Signs Temp Pulse Resp BP Pulse Ox 97.5 F L 65 16 129/79 H 93 11/06/18 07:00 11/06/18 07:00 11/06/18 07:00 11/06/18 07:00 11/06/18 07:00 Oxygen Delivery Method Room Air Weight: 77.5 kg Body Mass Index (BMI) 26.8 Finger Stick Blood Glucose 122 Intake and Output for Last 24 Hours 11/04/18 11/05/18 11/06/18 23:59 23:59 23:59 Intake Total 240 / 240 720 / 720 Balance 240 / 240 720 / 720 Medical Necessity - Tobacco Use Smoking Status: Never smoker Tobacco Use: Non-smoker Assessment/Plan All Active Problems (Last Updated 11/01/18 @ 14:18 by Krystin Erickson MD) CVA (cerebral vascular accident) (Acute) The patient is a 78 year old female with PMH CAD, paroxysmal atrial fibrillation, HTN, hyperlipidemia, hypothyroidism, anxiety/depression and chronic severe ataxia with hx of prior brain tumor s/p radiation and prior left pontine infarct admitted to [facility] on 11/02/2018 with debility status post acute pontine infarct for greater than 3 hours of therapy daily with a goal of return back home at or near her prior level of functional independence. Patient presents to the [facility] ED on 10/31/18 with history of onset at 9:00 pm the evening prior, increased balance difficulties above baseline as well as vision changes w/ blurred and double vision with both eyes open and inability to medial rotate her R eye. She also had nausea, severely worsened debility with vision changes. NIH was 2 and was not a TPA candidate. On CTA of head w/wo contrast atherosclerotic calcifications at right carotid bulb and the proximal segment of the left vertebral artery with mild luminal narrowing; CT of brain without contrast showed chronic involutional changes; EKG NSR, Right BBB with no change from prior EKG in May,; CXR with no acute pathology. On 11/01/2018 CT and MRI of brain w/wo contrast showed tiny acute pontine infarct. On 11/02/2018 echocardiogram done with EF of 55-60%. Patient lives with spouse and is wheel chair bound and modified independence with all pivot transfers and ADLs, except has assist with showering and tub/shower transfers. Aspiration precautions and was on mechanical soft, nectar thickened liquids at home. Plan -PT for gait stability -OT for ADLs -ST for dysphagia -Analgesics as needed -Bowel protocol -Acute pontine infarct, history of prior left pontine infarct- Continue aspirin, Plavix. Reported allergy to statin. -Chronic severe ataxia with history of prior brain tumor status post radiation -CAD status post CABG x2 and PCI-continue aspirin, Plavix. -Paroxysmal atrial fibrillation-not on oral anticoagulation, Neurology discussed with patient will wait at this time -Hypertension-continue lisinopril -Hyperlipidemia-allergy to statin. -Hypothyroidism-continue Synthroid -Anxiety/depression-continue venlafaxine, bupropion, Xanax -Right bundle branch block-EKG on admission with right bundle branch block. No change from prior EKG May 2018 -DVT prophylaxis on Lovenox, Josh hose, SCDs -Further medical management per hospitalist recommendation, hospitalist consult -Follow-up with PCP and neurology as outpatient on discharge
--- NOTE | 2018-11-06 16:40 | PN_ITS ---
Vitals/I&O's: Vital Signs Temp Pulse Resp BP Pulse Ox 97.5 F L 65 16 129/79 H 93 11/06/18 07:00 11/06/18 07:00 11/06/18 07:00 11/06/18 07:00 11/06/18 07:00 Oxygen Delivery Method Room Air Weight: 77.5 kg Body Mass Index (BMI) 26.8 Finger Stick Blood Glucose 122 Intake and Output for Last 24 Hours 11/04/18 11/05/18 11/06/18 23:59 23:59 23:59 Intake Total 240 / 240 720 / 720 Balance 240 / 240 720 / 720 Current Medications Acetaminophen (Tylenol) 1,000 mg PO Q8H PRN PRN PRN Reason: MILD PAIN (-09/13) Alprazolam (Xanax) 0.25 mg PO QHS [facility] Last Admin: 11/05/18 21:31 Dose: 0.25 mg Aspirin (Aspirin, Baby) 81 mg PO DAILY@0800 [facility] Last Admin: 11/06/18 09:34 Dose: 81 mg Bisacodyl (Dulcolax) 10 mg RECTAL .PRN X 1 PRN PRN Reason: Constipation Bupropion HCl (Wellbutrin Xl) 150 mg PO DAILY [facility] Last Admin: 11/06/18 09:34 Dose: 150 mg Clopidogrel Bisulfate (Plavix) 75 mg PO DAILY [facility] Last Admin: 11/06/18 09:34 Dose: 75 mg Enoxaparin Sodium (Lovenox) 40 mg SC DAILY@0600 [facility] Last Admin: 11/06/18 05:17 Dose: 40 mg Levothyroxine Sodium (Synthroid) 75 mcg PO DAILY@0600 [facility] Last Admin: 11/06/18 05:17 Dose: 75 mcg Lisinopril (Zestril) 10 mg PO DAILY [facility] Last Admin: 11/06/18 09:34 Dose: 10 mg Magnesium Hydroxide (Milk Of Magnesia) 30 ml PO .PRN X 1 PRN PRN Reason: Constipation Melatonin (Melatonin) 10 mg PO QHS [facility] Last Admin: 11/05/18 21:31 Dose: 10 mg Potassium Chloride (K-Dur) 10 meq PO DAILY [facility] Last Admin: 11/06/18 09:34 Dose: 10 meq Senna/Docusate Sodium (Senokot-S, Yessy-Colace) 2 tablet PO BID [facility] Last Admin: 11/06/18 09:32 Dose: Not Given Venlafaxine HCl (Effexor Xr) 150 mg PO DAILY [facility] Last Admin: 11/06/18 09:34 Dose: 150 mg Medical Necessity - Tobacco Use Smoking Status: Never smoker Tobacco Use: Non-smoker Assessment/Plan All Active Problems (Last Updated 11/01/18 @ 14:18 by Krystin Erickson MD) CVA (cerebral vascular accident) (Acute)
[2018-11-06] MEDS: MELATONIN 10 MG TABLET PO (21:51)
[2018-11-06] MEDS: ALPRAZolam 0.25 MG Tablet PO (21:52)
[2018-11-06 22:00] VITALS: BP 145/96; PULSE 76; RESP 16; TEMP 36.6; O2SAT 95
[2018-11-07] MEDS: Levothyroxine 75 MCG Tablet PO (07:16)
[2018-11-07] MEDS: Enoxaparin 40 MG/0.4 ML Syringe SC (07:16)
[2018-11-07 07:38] VITALS: BP 145/85; PULSE 78; RESP 16; TEMP 36.7; O2SAT 92
[2018-11-07] MEDS: Venlafaxine XR 150 MG Capsule PO (07:40)
[2018-11-07] MEDS: Clopidogrel Bisulfate 75 MG Tablet PO (07:40)
[2018-11-07] MEDS: buPROPion (XL) 150 MG TABLET.XL PO (07:40)
[2018-11-07] MEDS: Aspirin 81 MG TAB.CHEW PO (07:40)
[2018-11-07] MEDS: Lisinopril 10 MG Tablet PO (07:40)
--- NOTE | 2018-11-07 12:18 | PN_ITS ---
Subjective: Patient was seen and examined. No new complaints. Therapy going well. Objective: Physical Exam General: Alert, Oriented x3, Cooperative, No apparent distress HEENT: Atraumatic, PERRLA, EOMI, Normocephalic Neck: Supple, No JVD, Negative Carotid Bruits Lungs: Clear to auscultation, Normal air movement Cardiovascular: Regular rate, Regular Rhythm, Normal S1, Normal S2, No murmurs Abdomen: Bowel Sounds Present, Soft, Non Tender Extremities: No edema Skin: No rashes, No breakdown Musculoskeletal: No Tenderness to Palpation of Joints or Extremities Lymphatic: No Cervical, Supraclavicular, or Inguinal Adenopathy Neurological: - - Double vision with blurred vision on opening both eyes, right eye cannot cross midline on adduction, minimal left facial droop. Other cranial nerves are intact, normal power and tone in all 4 limbs. Psych/Mental Status: Normal Affect, Appropriate Vitals/I&O's: Vital Signs Temp Pulse Resp BP Pulse Ox 98.0 F 78 16 145/85 H 92 11/07/18 07:38 11/07/18 07:38 11/07/18 07:38 11/07/18 07:38 11/07/18 07:38 Oxygen Delivery Method Room Air Weight: 77.5 kg Body Mass Index (BMI) 26.8 Finger Stick Blood Glucose 122 Intake and Output for Last 24 Hours 11/05/18 11/06/18 11/07/18 23:59 23:59 23:59 Intake Total 240 / 240 720 / 720 120 / 120 Balance 240 / 240 720 / 720 120 / 120 Current Medications Acetaminophen (Tylenol) 1,000 mg PO Q8H PRN PRN PRN Reason: MILD PAIN (1-3/10) Alprazolam (Xanax) 0.25 mg PO QHS [facility] Last Admin: 11/06/18 21:52 Dose: 0.25 mg Aspirin (Aspirin, Baby) 81 mg PO DAILY@0800 [facility] Last Admin: 11/07/18 07:40 Dose: 81 mg Bisacodyl (Dulcolax) 10 mg RECTAL .PRN X 1 PRN PRN Reason: Constipation Bupropion HCl (Wellbutrin Xl) 150 mg PO DAILY [facility] Last Admin: 11/07/18 07:40 Dose: 150 mg Clopidogrel Bisulfate (Plavix) 75 mg PO DAILY [facility] Last Admin: 11/07/18 07:40 Dose: 75 mg Enoxaparin Sodium (Lovenox) 40 mg SC DAILY@0600 [facility] Last Admin: 11/07/18 07:16 Dose: 40 mg Levothyroxine Sodium (Synthroid) 75 mcg PO DAILY@0600 [facility] Last Admin: 11/07/18 07:16 Dose: 75 mcg Lisinopril (Zestril) 10 mg PO DAILY [facility] Last Admin: 11/07/18 07:40 Dose: 10 mg Magnesium Hydroxide (Milk Of Magnesia) 30 ml PO .PRN X 1 PRN PRN Reason: Constipation Melatonin (Melatonin) 10 mg PO QHS [facility] Last Admin: 11/06/18 21:51 Dose: 10 mg Potassium Chloride (K-Dur) 10 meq PO DAILY [facility] Last Admin: 11/07/18 07:40 Dose: 10 meq Senna/Docusate Sodium (Senokot-S, Yessy-Colace) 2 tablet PO BID [facility] Last Admin: 11/07/18 07:35 Dose: Not Given Venlafaxine HCl (Effexor Xr) 150 mg PO DAILY [facility] Last Admin: 11/07/18 07:40 Dose: 150 mg Medical Necessity - Tobacco Use Smoking Status: Never smoker Tobacco Use: Non-smoker Assessment/Plan All Active Problems (Last Updated 11/01/18 @ 14:18 by Krystin Erickson MD) CVA (cerebral vascular accident) (Acute) 1. Acute debility secondary to acute pontine infarct, residual right-sided paralysis, chronic severe ataxia, undergoing therapy 2. CAD status post CABG, PCI, on aspirin, plavix 3. Paroxysmal atrial fibrillation, in NSR, not on anticoagulation, on account of frequent falls 4. Hypertension, controlled, on Lisinopril 5. Hypothyroidism, on levothyoxine 7. Anxiety/depression, on xanax, wellbutrin, effexor 8. DVT ppx- Lovenox SC Code Visit Inpatient E&M: 10077 Subs Hosp L2
[2018-11-07] MEDS: Acetaminophen 500 MG Tablet 1000 MG PO (15:08)
[2018-11-07] MEDS: MELATONIN 10 MG TABLET PO (19:29)
[2018-11-07] MEDS: Senna/Docusate Sodium 1 Tablet 2 TABLET PO (19:35)
[2018-11-07] MEDS: ALPRAZolam 0.25 MG Tablet PO (19:35)
[2018-11-07 20:05] VITALS: BP 138/99; PULSE 76; RESP 18; TEMP 36.4; O2SAT 94
[2018-11-08] MEDS: Levothyroxine 75 MCG Tablet PO (06:35)
[2018-11-08] MEDS: Enoxaparin 40 MG/0.4 ML Syringe SC (06:35)
[2018-11-08 07:00] VITALS: BP 145/93; PULSE 73; RESP 18; TEMP 36.2; O2SAT 93
[2018-11-08] MEDS: Aspirin 81 MG TAB.CHEW PO (07:56)
[2018-11-08] MEDS: Venlafaxine XR 150 MG Capsule PO (07:56)
[2018-11-08] MEDS: buPROPion (XL) 150 MG TABLET.XL PO (07:56)
[2018-11-08] MEDS: Lisinopril 10 MG Tablet PO (07:56)
[2018-11-08] MEDS: Clopidogrel Bisulfate 75 MG Tablet PO (07:57)
[2018-11-08] MEDS: Senna/Docusate Sodium 1 Tablet 2 TABLET PO (07:58)
--- NOTE | 2018-11-08 12:49 | PN_ITS ---
Subjective: Patient was seen and examined. She feels well. Her diplopia is improving. Denies any new complains 10 point ROS is negative Objective: Physical Exam General: Alert, Oriented x3, Cooperative, No apparent distress HEENT: Atraumatic, PERRLA, EOMI, Normocephalic Neck: Supple, No JVD, Negative Carotid Bruits Lungs: Clear to auscultation, Normal air movement Cardiovascular: Regular rate, Regular Rhythm, Normal S1, Normal S2, No murmurs Abdomen: Bowel Sounds Present, Soft, Non Tender Extremities: No edema Skin: No rashes, No breakdown Musculoskeletal: No Tenderness to Palpation of Joints or Extremities Lymphatic: No Cervical, Supraclavicular, or Inguinal Adenopathy Neurological: - - Double vision with blurred vision on opening both eyes, right eye cannot cross midline on adduction, minimal left facial droop. Other cranial nerves are intact, normal power and tone in all 4 limbs. Psych/Mental Status: Normal Affect, Appropriate Vitals/I&O's: Vital Signs Temp Pulse Resp BP Pulse Ox 97.1 F L 73 18 145/93 H 93 11/08/18 07:00 11/08/18 07:00 11/08/18 07:00 11/08/18 07:00 11/08/18 07:00 Oxygen Delivery Method Room Air Weight: 77.5 kg Body Mass Index (BMI) 26.8 Finger Stick Blood Glucose 122 Intake and Output for Last 24 Hours 11/06/18 11/07/18 11/08/18 23:59 23:59 23:59 Intake Total 720 / 720 480 / 480 720 / 720 Balance 720 / 720 480 / 480 720 / 720 Current Medications Acetaminophen (Tylenol) 1,000 mg PO Q8H PRN PRN PRN Reason: MILD PAIN (1-3) Last Admin: 11/07/18 15:08 Dose: 1,000 mg Alprazolam (Xanax) 0.25 mg PO QHS [facility] Last Admin: 11/07/18 19:35 Dose: 0.25 mg Aspirin (Aspirin, Baby) 81 mg PO DAILY@0800 [facility] Last Admin: 11/08/18 07:56 Dose: 81 mg Bisacodyl (Dulcolax) 10 mg RECTAL .PRN X 1 PRN PRN Reason: Constipation Bupropion HCl (Wellbutrin Xl) 150 mg PO DAILY [facility] Last Admin: 11/08/18 07:56 Dose: 150 mg Clopidogrel Bisulfate (Plavix) 75 mg PO DAILY [facility] Last Admin: 11/08/18 07:57 Dose: 75 mg Enoxaparin Sodium (Lovenox) 40 mg SC DAILY@0600 [facility] Last Admin: 11/08/18 06:35 Dose: 40 mg Levothyroxine Sodium (Synthroid) 75 mcg PO DAILY@0600 [facility] Last Admin: 11/08/18 06:35 Dose: 75 mcg Lisinopril (Zestril) 10 mg PO DAILY [facility] Last Admin: 11/08/18 07:56 Dose: 10 mg Magnesium Hydroxide (Milk Of Magnesia) 30 ml PO .PRN X 1 PRN PRN Reason: Constipation Melatonin (Melatonin) 10 mg PO QHS [facility] Last Admin: 11/07/18 19:29 Dose: 10 mg Potassium Chloride (K-Dur) 10 meq PO DAILY [facility] Last Admin: 11/08/18 07:57 Dose: 10 meq Senna/Docusate Sodium (Senokot-S, Yessy-Colace) 2 tablet PO BID [facility] Last Admin: 11/08/18 07:58 Dose: 2 tablet Venlafaxine HCl (Effexor Xr) 150 mg PO DAILY [facility] Last Admin: 11/08/18 07:56 Dose: 150 mg Medical Necessity - Tobacco Use Smoking Status: Never smoker Tobacco Use: Non-smoker Assessment/Plan All Active Problems (Last Updated 11/01/18 @ 14:18 by Krystin Erickson MD) CVA (cerebral vascular accident) (Acute) 1. Acute debility secondary to acute pontine infarct, residual right-sided paralysis, chronic severe ataxia, undergoing therapy 2. CAD status post CABG, PCI, on aspirin, plavix 3. Paroxysmal atrial fibrillation, in NSR, not on anticoagulation, on account of frequent falls 4. Hypertension, controlled, on Lisinopril 5. Hypothyroidism, on levothyoxine 7. Anxiety/depression, on xanax, wellbutrin, effexor 8. DVT ppx- Lovenox SC Code Visit Inpatient E&M: 74049 Subs Hosp L2
[2018-11-08 20:41] VITALS: BP 140/78; PULSE 66; RESP 16; TEMP 36.6; O2SAT 94
[2018-11-08] MEDS: ALPRAZolam 0.25 MG Tablet PO (20:52)
[2018-11-08] MEDS: MELATONIN 10 MG TABLET PO (20:53)
[2018-11-09] MEDS: Levothyroxine 75 MCG Tablet PO (05:48)
[2018-11-09] MEDS: Enoxaparin 40 MG/0.4 ML Syringe SC (05:48)
[2018-11-09 07:18] VITALS: BP 154/81; PULSE 69; RESP 18; TEMP 36.6; O2SAT 92
[2018-11-09] MEDS: buPROPion (XL) 150 MG TABLET.XL PO (07:34)
[2018-11-09] MEDS: Venlafaxine XR 150 MG Capsule PO (07:34)
[2018-11-09] MEDS: Senna/Docusate Sodium 1 Tablet 2 TABLET PO (07:34)
[2018-11-09] MEDS: Clopidogrel Bisulfate 75 MG Tablet PO (07:34)
[2018-11-09] MEDS: Aspirin 81 MG TAB.CHEW PO (07:35)
[2018-11-09] MEDS: Lisinopril 20 MG Tablet PO (07:38)
--- NOTE | 2018-11-09 09:41 | PCM.PN.HOSP ---
Subjective: Patient is a 78-year-old lady admitted to the inpatient rehab unit following acute pontine infarct with residual left -sided paralysis. Objective: GENERAL: cooperative HEENT: Atraumatic; EYES; right eye with the patch NECK; supple, normal thyroid, RESPIRATORY: Diminished to auscultation bilaterally, CARDIOVASCULAR: Regular S1 S2, GI: soft, non-tender, normoactive bowel sounds, : No Renal angle tenderness; EXTREMITIES: No edema, no clubbing, no cyanosis. NEURO: Awake; left sided hemiplegia SKIN: No Rash PSYCH; Normal affect Vitals/I&O's: Vital Signs Temp Pulse Resp BP Pulse Ox 97.9 F 69 18 154/81 H 92 11/09/18 07:18 11/09/18 07:18 11/09/18 07:18 11/09/18 07:18 11/09/18 07:18 Oxygen Delivery Method Room Air Weight: 77.5 kg Body Mass Index (BMI) 26.8 Finger Stick Blood Glucose 122 Intake and Output for Last 24 Hours 11/07/18 11/08/18 11/09/18 23:59 23:59 23:59 Intake Total 480 / 480 720 / 720 Balance 480 / 480 720 / 720 Current Medications Acetaminophen (Tylenol) 1,000 mg PO Q8H PRN PRN PRN Reason: MILD PAIN (1-310) Last Admin: 11/07/18 15:08 Dose: 1,000 mg Alprazolam (Xanax) 0.25 mg PO QHS [facility] Last Admin: 11/08/18 20:52 Dose: 0.25 mg Aspirin (Aspirin, Baby) 81 mg PO DAILY@0800 [facility] Last Admin: 11/09/18 07:35 Dose: 81 mg Bisacodyl (Dulcolax) 10 mg RECTAL .PRN X 1 PRN PRN Reason: Constipation Bupropion HCl (Wellbutrin Xl) 150 mg PO DAILY [facility] Last Admin: 11/09/18 07:34 Dose: 150 mg Clopidogrel Bisulfate (Plavix) 75 mg PO DAILY [facility] Last Admin: 11/09/18 07:34 Dose: 75 mg Enoxaparin Sodium (Lovenox) 40 mg SC DAILY@0600 [facility] Last Admin: 11/09/18 05:48 Dose: 40 mg Levothyroxine Sodium (Synthroid) 75 mcg PO DAILY@0600 [facility] Last Admin: 11/09/18 05:48 Dose: 75 mcg Lisinopril (Zestril) 20 mg PO DAILY [facility] Last Admin: 11/09/18 07:38 Dose: 20 mg Magnesium Hydroxide (Milk Of Magnesia) 30 ml PO .PRN X 1 PRN PRN Reason: Constipation Melatonin (Melatonin) 10 mg PO QHS [facility] Last Admin: 11/08/18 20:53 Dose: 10 mg Potassium Chloride (K-Dur) 10 meq PO DAILY [facility] Last Admin: 11/09/18 07:34 Dose: 10 meq Senna/Docusate Sodium (Senokot-S, Yessy-Colace) 2 tablet PO BID [facility] Last Admin: 11/09/18 07:34 Dose: 2 tablet Venlafaxine HCl (Effexor Xr) 150 mg PO DAILY [facility] Last Admin: 11/09/18 07:34 Dose: 150 mg Medical Necessity - Tobacco Use Smoking Status: Never smoker Tobacco Use: Non-smoker Assessment/Plan All Active Problems (Last Updated 11/01/18 @ 14:18 by Krystin Erickson MD) CVA (cerebral vascular accident) (Acute) Patient is a 78-year-old lady admitted to the inpatient rehab unit following acute pontine infarct with residual left-sided paralysis. 1. Acute pontine infarct with residual left-sided paralysis with significant debility patient admitted to the inpatient rehab unit where patient is currently undergoing therapy 2. Paroxysmal atrial fibrillation rate controlled patient not on systemic anticoagulation due to significant risk for falls patient was instead placed on dual antiplatelet therapy with aspirin and Plavix 3. Coronary artery disease with previous CABG and subsequent PCI currently on recommended medications 4. Hypertension-blood pressure controlled, home medications continued with dose adjustment as needed 5. Hypothyroidism-patient is on levothyroxine home dose continued 6. Depression with anxiety 7. History of brain tomorrow with previous radiation therapy with subsequent severe ataxia 8. DVT prophylaxis SC Lovenox Active Medications Acetaminophen (Tylenol) 1,000 mg PO Q8H PRN PRN PRN Reason: MILD PAIN (1-3/10) Last Admin: 11/07/18 15:08 Dose: 1,000 mg Alprazolam (Xanax) 0.25 mg PO QHS [facility] Last Admin: 11/08/18 20:52 Dose: 0.25 mg Aspirin (Aspirin, Baby) 81 mg PO DAILY@0800 [facility] Last Admin: 11/09/18 07:35 Dose: 81 mg Bisacodyl (Dulcolax) 10 mg RECTAL .PRN X 1 PRN PRN Reason: Constipation Bupropion HCl (Wellbutrin Xl) 150 mg PO DAILY [facility] Last Admin: 11/09/18 07:34 Dose: 150 mg Clopidogrel Bisulfate (Plavix) 75 mg PO DAILY [facility] Last Admin: 11/09/18 07:34 Dose: 75 mg Enoxaparin Sodium (Lovenox) 40 mg SC DAILY@0600 [facility] Last Admin: 11/09/18 05:48 Dose: 40 mg Levothyroxine Sodium (Synthroid) 75 mcg PO DAILY@0600 [facility] Last Admin: 11/09/18 05:48 Dose: 75 mcg Lisinopril (Zestril) 20 mg PO DAILY [facility] Last Admin: 11/09/18 07:38 Dose: 20 mg Magnesium Hydroxide (Milk Of Magnesia) 30 ml PO .PRN X 1 PRN PRN Reason: Constipation Melatonin (Melatonin) 10 mg PO QHS [facility] Last Admin: 11/08/18 20:53 Dose: 10 mg Potassium Chloride (K-Dur) 10 meq PO DAILY [facility] Last Admin: 11/09/18 07:34 Dose: 10 meq Senna/Docusate Sodium (Senokot-S, Yessy-Colace) 2 tablet PO BID [facility] Last Admin: 11/09/18 07:34 Dose: 2 tablet Venlafaxine HCl (Effexor Xr) 150 mg PO DAILY [facility] Last Admin: 11/09/18 07:34 Dose: 150 mg Code Visit Inpatient E&M: 58197 [facility] Hosp L2
--- NOTE | 2018-11-09 09:44 | PN_ITS ---
Subjective: Patient is a 78-year-old lady admitted to the inpatient rehab unit following acute pontine infarct with residual left -sided paralysis. Objective: GENERAL: cooperative HEENT: Atraumatic; EYES; right eye with the patch NECK; supple, normal thyroid, RESPIRATORY: Diminished to auscultation bilaterally, CARDIOVASCULAR: Regular S1 S2, GI: soft, non-tender, normoactive bowel sounds, : No Renal angle tenderness; EXTREMITIES: No edema, no clubbing, no cyanosis. NEURO: Awake; left sided hemiplegia SKIN: No Rash PSYCH; Normal affect Vitals/I&O's: Vital Signs Temp Pulse Resp BP Pulse Ox 97.9 F 69 18 154/81 H 92 11/09/18 07:18 11/09/18 07:18 11/09/18 07:18 11/09/18 07:18 11/09/18 07:18 Oxygen Delivery Method Room Air Weight: 77.5 kg Body Mass Index (BMI) 26.8 Finger Stick Blood Glucose 122 Intake and Output for Last 24 Hours 11/07/18 11/08/18 11/09/18 23:59 23:59 23:59 Intake Total 480 / 480 720 / 720 Balance 480 / 480 720 / 720 Current Medications Acetaminophen (Tylenol) 1,000 mg PO Q8H PRN PRN PRN Reason: MILD PAIN (1-310) Last Admin: 11/07/18 15:08 Dose: 1,000 mg Alprazolam (Xanax) 0.25 mg PO QHS [facility] Last Admin: 11/08/18 20:52 Dose: 0.25 mg Aspirin (Aspirin, Baby) 81 mg PO DAILY@0800 [facility] Last Admin: 11/09/18 07:35 Dose: 81 mg Bisacodyl (Dulcolax) 10 mg RECTAL .PRN X 1 PRN PRN Reason: Constipation Bupropion HCl (Wellbutrin Xl) 150 mg PO DAILY [facility] Last Admin: 11/09/18 07:34 Dose: 150 mg Clopidogrel Bisulfate (Plavix) 75 mg PO DAILY [facility] Last Admin: 11/09/18 07:34 Dose: 75 mg Enoxaparin Sodium (Lovenox) 40 mg SC DAILY@0600 [facility] Last Admin: 11/09/18 05:48 Dose: 40 mg Levothyroxine Sodium (Synthroid) 75 mcg PO DAILY@0600 [facility] Last Admin: 11/09/18 05:48 Dose: 75 mcg Lisinopril (Zestril) 20 mg PO DAILY [facility] Last Admin: 11/09/18 07:38 Dose: 20 mg Magnesium Hydroxide (Milk Of Magnesia) 30 ml PO .PRN X 1 PRN PRN Reason: Constipation Melatonin (Melatonin) 10 mg PO QHS [facility] Last Admin: 11/08/18 20:53 Dose: 10 mg Potassium Chloride (K-Dur) 10 meq PO DAILY [facility] Last Admin: 11/09/18 07:34 Dose: 10 meq Senna/Docusate Sodium (Senokot-S, Yessy-Colace) 2 tablet PO BID [facility] Last Admin: 11/09/18 07:34 Dose: 2 tablet Venlafaxine HCl (Effexor Xr) 150 mg PO DAILY [facility] Last Admin: 11/09/18 07:34 Dose: 150 mg Medical Necessity - Tobacco Use Smoking Status: Never smoker Tobacco Use: Non-smoker Assessment/Plan All Active Problems (Last Updated 11/01/18 @ 14:18 by Krystin Erickson MD) CVA (cerebral vascular accident) (Acute) Patient is a 78-year-old lady admitted to the inpatient rehab unit following acute pontine infarct with residual left-sided paralysis. 1. Acute pontine infarct with residual left-sided paralysis with significant debility patient admitted to the inpatient rehab unit where patient is currently undergoing therapy 2. Paroxysmal atrial fibrillation rate controlled patient not on systemic anticoagulation due to significant risk for falls patient was instead placed on dual antiplatelet therapy with aspirin and Plavix 3. Coronary artery disease with previous CABG and subsequent PCI currently on recommended medications 4. Hypertension-blood pressure controlled, home medications continued with dose adjustment as needed 5. Hypothyroidism-patient is on levothyroxine home dose continued 6. Depression with anxiety 7. History of brain tomorrow with previous radiation therapy with subsequent severe ataxia 8. DVT prophylaxis SC Lovenox Active Medications Acetaminophen (Tylenol) 1,000 mg PO Q8H PRN PRN PRN Reason: MILD PAIN (1-3/10) Last Admin: 11/07/18 15:08 Dose: 1,000 mg Alprazolam (Xanax) 0.25 mg PO QHS [facility] Last Admin: 11/08/18 20:52 Dose: 0.25 mg Aspirin (Aspirin, Baby) 81 mg PO DAILY@0800 [facility] Last Admin: 11/09/18 07:35 Dose: 81 mg Bisacodyl (Dulcolax) 10 mg RECTAL .PRN X 1 PRN PRN Reason: Constipation Bupropion HCl (Wellbutrin Xl) 150 mg PO DAILY [facility] Last Admin: 11/09/18 07:34 Dose: 150 mg Clopidogrel Bisulfate (Plavix) 75 mg PO DAILY [facility] Last Admin: 11/09/18 07:34 Dose: 75 mg Enoxaparin Sodium (Lovenox) 40 mg SC DAILY@0600 [facility] Last Admin: 11/09/18 05:48 Dose: 40 mg Levothyroxine Sodium (Synthroid) 75 mcg PO DAILY@0600 [facility] Last Admin: 11/09/18 05:48 Dose: 75 mcg Lisinopril (Zestril) 20 mg PO DAILY [facility] Last Admin: 11/09/18 07:38 Dose: 20 mg Magnesium Hydroxide (Milk Of Magnesia) 30 ml PO .PRN X 1 PRN PRN Reason: Constipation Melatonin (Melatonin) 10 mg PO QHS [facility] Last Admin: 11/08/18 20:53 Dose: 10 mg Potassium Chloride (K-Dur) 10 meq PO DAILY [facility] Last Admin: 11/09/18 07:34 Dose: 10 meq Senna/Docusate Sodium (Senokot-S, Yessy-Colace) 2 tablet PO BID [facility] Last Admin: 11/09/18 07:34 Dose: 2 tablet Venlafaxine HCl (Effexor Xr) 150 mg PO DAILY [facility] Last Admin: 11/09/18 07:34 Dose: 150 mg Code Visit Inpatient E&M: 34458 [facility] Hosp L2
[2018-11-09 09:47] VITALS: BP 138/79; PULSE 72
--- NOTE | 2018-11-09 13:18 | PCM.PN.NEU ---
Subjective: Per nursing no issues overnight. Per patient her double and blurred vision continues to improve and is able to move right eye more. Patient continues to rotate her eye patch. Denies any further questions or concerns. - Physical Exam General: Alert, Oriented x3, Cooperative HEENT: Atraumatic, PERRLA Oral: Moist Mucosa Neck: Supple, No JVD Lungs: Clear to auscultation, Normal air movement Cardiovascular: Regular rate, Regular Rhythm Abdomen: Bowel Sounds Present, Soft, Non Tender Extremities: No clubbing, No cyanosis, No edema Musculoskeletal: No Tenderness to Palpation of Joints or Extremities Neurological: - - Deep Tendon Reflexes 2+/4 and Symmetrical - Cranial nerves II-XII intact,except for increased movement to lateral rotate right eye, but minimal to medial rotate right eye. Left upper extremity pronator drift, strength 3/5. Right extremities strength 4/5 Psych/Mental Status: Normal Affect, Appropriate Vital Signs Temp Pulse Resp BP Pulse Ox 97.9 F 72 18 138/79 H 92 11/09/18 07:18 11/09/18 09:47 11/09/18 07:18 11/09/18 09:47 11/09/18 07:18 Oxygen Delivery Method Room Air Weight: 77.5 kg Body Mass Index (BMI) 26.8 Finger Stick Blood Glucose 122 Intake and Output for Last 24 Hours 11/07/18 11/08/18 11/09/18 23:59 23:59 23:59 Intake Total 480 / 480 720 / 720 Balance 480 / 480 720 / 720 Medical Necessity - Tobacco Use Smoking Status: Never smoker Tobacco Use: Non-smoker Assessment/Plan All Active Problems (Last Updated 11/09/18 @ 13:22 by Rachel Spring POWER GENERATING PLANT OPERATOR-C) CVA (cerebral vascular accident) (Acute) The patient is a 78 year old female with PMH CAD, HTN, hyperlipidemia, hypothyroidism, anxiety/depression and chronic severe ataxia with hx of prior brain tumor s/p radiation and prior left pontine infarct admitted to [facility] on 11/02/2018 with debility status post acute right pontine infarct for greater than 3 hours of therapy daily with a goal of return back home at or near her prior level of functional independence. Patient presents to the [facility] ED on 10/31/18 with history of onset at 9:00 pm the evening prior, increased balance difficulties above baseline as well as vision changes w/ blurred and double vision with both eyes open and inability to medial rotate her R eye. She also had nausea, severely worsened debility with vision changes. NIH was 2 and was not a TPA candidate. On CTA of head w/wo contrast atherosclerotic calcifications at right carotid bulb and the proximal segment of the left vertebral artery with mild luminal narrowing; CT of brain without contrast showed chronic involutional changes; EKG NSR, Right BBB with no change from prior EKG in May,; CXR with no acute pathology. On 11/01/2018 CT and MRI of brain w/wo contrast showed tiny acute pontine infarct. On 11/02/2018 echocardiogram done with EF of 55-60%. Patient lives with spouse and is wheel chair bound and modified independence with all pivot transfers and ADLs, except has assist with showering and tub/shower transfers. Aspiration precautions and was on mechanical soft, nectar thickened liquids at home. Plan -PT for gait stability -OT for ADLs -ST for dysphagia -Analgesics as needed -Bowel protocol -Acute right pontine infarct, history of prior left pontine infarct- Continue aspirin, Plavix. Reported allergy to statin. -Chronic severe ataxia with history of prior brain tumor status post radiation -CAD status post CABG x2 and PCI-continue aspirin, Plavix. -post cardiac procedure A-Fib in 2013- no anticoagulation per cardiology notes and documentation, patient had normal 30 day event monitor in 2016, and multiple EKGs showing NSR thereafter -Hypertension-continue lisinopril -Hyperlipidemia-allergy to statin. -Hypothyroidism-continue Synthroid -Anxiety/depression-continue venlafaxine, bupropion, Xanax -Right bundle branch block-EKG on admission with right bundle branch block. No change from prior EKG May 2018 -DVT prophylaxis on Lovenox, Josh hose, SCDs -Further medical management per hospitalist recommendation, hospitalist consult -Follow-up with PCP and neurology as outpatient on discharge
--- NOTE | 2018-11-09 17:38 | CHAPLAIN ---
Type of Pastoral Visit _x__ Initial Visit ___ Follow-up Visit ___ On-call Visit ___ General Patient Visit ___ Spiritual Assessment ___ Family Conference ___ Bereavement ___ Rapid Response ___ Code Blue ___ Other (describe below) Pastoral Care Referral From _x__ Patient ___ Family ___ Nurse ___ Physician ___ Accounts Receivable Representative ___ Steel Pourer Helper ___ Other (describe below) Sacrament/Intervention _x__ Active listening ___ Anointing ___ Church ___ Bereavement ___ Communion _x__ Therese exploration ___ _x__ Life review _x__ Prayer ___ Reconciliation ___ Sacrament of Sick _x__ Supportive presence ___ Wedding ___ Other (describe below) Pastoral Comments
[2018-11-09] MEDS: Acetaminophen 500 MG Tablet 1000 MG PO (21:00)
[2018-11-09] MEDS: MELATONIN 10 MG TABLET PO (21:00)
[2018-11-09] MEDS: ALPRAZolam 0.25 MG Tablet PO (21:03)
[2018-11-09 22:00] VITALS: BP 143/81; PULSE 80; PULSE 81; RESP 16; TEMP 36.6; O2SAT 92
[2018-11-10] MEDS: Levothyroxine 75 MCG Tablet PO (05:20)
[2018-11-10] MEDS: Enoxaparin 40 MG/0.4 ML Syringe SC (05:20)
[2018-11-10 07:08] VITALS: BP 140/80; PULSE 84; RESP 18; TEMP 36.6; O2SAT 95
[2018-11-10] MEDS: Venlafaxine XR 150 MG Capsule PO (07:38)
[2018-11-10] MEDS: buPROPion (XL) 150 MG TABLET.XL PO (07:38)
[2018-11-10] MEDS: Senna/Docusate Sodium 1 Tablet 2 TABLET PO (07:38)
[2018-11-10] MEDS: Clopidogrel Bisulfate 75 MG Tablet PO (07:38)
[2018-11-10] MEDS: Aspirin 81 MG TAB.CHEW PO (07:38)
[2018-11-10] MEDS: Lisinopril 20 MG Tablet PO (07:38)
--- NOTE | 2018-11-10 11:48 | PCM.PN.NEU ---
Subjective: Per nursing no issues overnight. Per patient she is tolerating therapies well and double/blurred vision is improving to right eye. Patient continues to rotate eye patch. - Physical Exam General: Alert, Oriented x3, Cooperative HEENT: Atraumatic, PERRLA Oral: Moist Mucosa Neck: Supple, No JVD Lungs: Clear to auscultation, Normal air movement Cardiovascular: Regular rate, Regular Rhythm Abdomen: Bowel Sounds Present, Soft, Non Tender, Non-Distended Extremities: No clubbing, No cyanosis, No edema Musculoskeletal: No Tenderness to Palpation of Joints or Extremities Neurological: Deep Tendon Reflexes 2+/4 and Symmetrical, - - Cranial nerves II-XII intact,except for increased movement to lateral rotate right eye, but minimal to medial rotate right eye. Left upper extremity pronator drift, strength 3/5. Right extremities strength 4/5 Psych/Mental Status: Normal Affect, Appropriate, Alert and oriented to time, place, person, mood and affect Vital Signs Temp Pulse Resp BP Pulse Ox 97.9 F 84 18 140/80 H 95 11/10/18 07:08 11/10/18 07:08 11/10/18 07:08 11/10/18 07:08 11/10/18 07:08 Oxygen Delivery Method Room Air Weight: 77.5 kg Body Mass Index (BMI) 26.8 Finger Stick Blood Glucose 122 Intake and Output for Last 24 Hours 11/08/18 11/09/18 11/10/18 23:59 23:59 23:59 Intake Total 720 / 720 Balance 720 / 720 Medical Necessity - Tobacco Use Smoking Status: Never smoker Tobacco Use: Non-smoker Assessment/Plan All Active Problems (Last Updated 11/09/18 @ 13:22 by Rachel Spring DIESEL SERVICE APPRENTICE-C) CVA (cerebral vascular accident) (Acute) The patient is a 78 year old female with PMH CAD, HTN, hyperlipidemia, hypothyroidism, anxiety/depression and chronic severe ataxia with hx of prior brain tumor s/p radiation and prior left pontine infarct admitted to [facility] on 11/02/2018 with debility status post acute right pontine infarct for greater than 3 hours of therapy daily with a goal of return back home at or near her prior level of functional independence. Patient presents to the [facility] ED on 10/31/18 with history of onset at 9:00 pm the evening prior, increased balance difficulties above baseline as well as vision changes w/ blurred and double vision with both eyes open and inability to medial rotate her R eye. She also had nausea, severely worsened debility with vision changes. NIH was 2 and was not a TPA candidate. On CTA of head w/wo contrast atherosclerotic calcifications at right carotid bulb and the proximal segment of the left vertebral artery with mild luminal narrowing; CT of brain without contrast showed chronic involutional changes; EKG NSR, Right BBB with no change from prior EKG in May,; CXR with no acute pathology. On 11/01/2018 CT and MRI of brain w/wo contrast showed tiny acute pontine infarct. On 11/02/2018 echocardiogram done with EF of 55-60%. Patient lives with spouse and is wheel chair bound and modified independence with all pivot transfers and ADLs, except has assist with showering and tub/shower transfers. Aspiration precautions and was on mechanical soft, nectar thickened liquids at home. Plan -PT for gait stability -OT for ADLs -ST for dysphagia -Analgesics as needed -Bowel protocol -Acute right pontine infarct, history of prior left pontine infarct- Continue aspirin, Plavix. Reported allergy to statin. -Chronic severe ataxia with history of prior brain tumor status post radiation -CAD status post CABG x2 and PCI-continue aspirin, Plavix. -post cardiac procedure A-Fib in 2013- no anticoagulation per cardiology notes and documentation, patient had normal 30 day event monitor in 2016, and multiple EKGs showing NSR thereafter -Hypertension-continue lisinopril -Hyperlipidemia-allergy to statin. -Hypothyroidism-continue Synthroid -Anxiety/depression-continue venlafaxine, bupropion, Xanax -Right bundle branch block-EKG on admission with right bundle branch block. No change from prior EKG May 2018 -DVT prophylaxis on Lovenox, Josh hose, SCDs -Further medical management per hospitalist recommendation, hospitalist consult -Follow-up with PCP and neurology as outpatient on discharge
--- NOTE | 2018-11-10 11:51 | PN.NEURO_ITS ---
Subjective: Per nursing no issues overnight. Per patient she is tolerating therapies well and double/blurred vision is improving to right eye. Patient continues to rotate eye patch. - Physical Exam General: Alert, Oriented x3, Cooperative HEENT: Atraumatic, PERRLA Oral: Moist Mucosa Neck: Supple, No JVD Lungs: Clear to auscultation, Normal air movement Cardiovascular: Regular rate, Regular Rhythm Abdomen: Bowel Sounds Present, Soft, Non Tender, Non-Distended Extremities: No clubbing, No cyanosis, No edema Musculoskeletal: No Tenderness to Palpation of Joints or Extremities Neurological: Deep Tendon Reflexes 2+/4 and Symmetrical, - - Cranial nerves II- XII intact,except for increased movement to lateral rotate right eye, but minimal to medial rotate right eye. Left upper extremity pronator drift, strength 3/5. Right extremities strength 4/5 Psych/Mental Status: Normal Affect, Appropriate, Alert and oriented to time, place, person, mood and affect Vital Signs Temp Pulse Resp BP Pulse Ox 97.9 F 84 18 140/80 H 95 11/10/18 07:08 11/10/18 07:08 11/10/18 07:08 11/10/18 07:08 11/10/18 07:08 Oxygen Delivery Method Room Air Weight: 77.5 kg Body Mass Index (BMI) 26.8 Finger Stick Blood Glucose 122 Intake and Output for Last 24 Hours 11/08/18 11/09/18 11/10/18 23:59 23:59 23:59 Intake Total 720 / 720 Balance 720 / 720 Medical Necessity - Tobacco Use Smoking Status: Never smoker Tobacco Use: Non-smoker Assessment/Plan All Active Problems (Last Updated 11/09/18 @ 13:22 by Rachel Spring AUDIO/VIDEO ENGINEER-C) CVA (cerebral vascular accident) (Acute) The patient is a 78 year old female with PMH CAD, HTN, hyperlipidemia, hypothyroidism, anxiety/depression and chronic severe ataxia with hx of prior brain tumor s/p radiation and prior left pontine infarct admitted to [facility] on 11/02/2018 with debility status post acute right pontine infarct for greater than 3 hours of therapy daily with a goal of return back home at or near her prior level of functional independence. Patient presents to the [facility] ED on 10/31/18 with history of onset at 9:00 pm the evening prior, increased balance difficulties above baseline as well as vision changes w/ blurred and double vision with both eyes open and inability to medial rotate her R eye. She also had nausea, severely worsened debility with vision changes. NIH was 2 and was not a TPA candidate. On CTA of head w/wo contrast atherosclerotic calcifications at right carotid bulb and the proximal segment of the left vertebral artery with mild luminal narrowing; CT of brain without contrast showed chronic involutional changes; EKG NSR, Right BBB with no change from prior EKG in May,; CXR with no acute pathology. On 11/01/2018 CT and MRI of brain w/wo contrast showed tiny acute pontine infarct. On 11/02/2018 echocardiogram done with EF of 55-60%. Patient lives with spouse and is wheel chair bound and modified independence with all pivot transfers and ADLs, except has assist with showering and tub/shower transfers. Aspiration precautions and was on mechanical soft, nectar thickened liquids at home. Plan -PT for gait stability -OT for ADLs -ST for dysphagia -Analgesics as needed -Bowel protocol -Acute right pontine infarct, history of prior left pontine infarct- Continue aspirin, Plavix. Reported allergy to statin. -Chronic severe ataxia with history of prior brain tumor status post radiation -CAD status post CABG x2 and PCI-continue aspirin, Plavix. -post cardiac procedure A-Fib in 2013- no anticoagulation per cardiology notes and documentation, patient had normal 30 day event monitor in 2016, and multiple EKGs showing NSR thereafter -Hypertension-continue lisinopril -Hyperlipidemia-allergy to statin. -Hypothyroidism-continue Synthroid -Anxiety/depression-continue venlafaxine, bupropion, Xanax -Right bundle branch block-EKG on admission with right bundle branch block. No change from prior EKG May 2018 -DVT prophylaxis on Lovenox, Josh hose, SCDs -Further medical management per hospitalist recommendation, hospitalist consult -Follow-up with PCP and neurology as outpatient on discharge
--- NOTE | 2018-11-10 17:51 | NURSING ---
Reviewed and agree with ACADEMIC INTERN's FIMS and charting.
[2018-11-10 19:24] VITALS: BP 136/88; PULSE 77; RESP 16; TEMP 36.6; O2SAT 92
[2018-11-10 19:58] VITALS: PULSE 77; RESP 16
[2018-11-10] MEDS: MELATONIN 10 MG TABLET PO (21:19)
[2018-11-10] MEDS: ALPRAZolam 0.25 MG Tablet PO (21:19)
[2018-11-11] MEDS: Levothyroxine 75 MCG Tablet PO (05:16)
[2018-11-11] MEDS: Enoxaparin 40 MG/0.4 ML Syringe SC (05:16)
[2018-11-11 07:37] VITALS: BP 131/86; PULSE 66; RESP 16; TEMP 36.7; O2SAT 95
[2018-11-11] MEDS: Clopidogrel Bisulfate 75 MG Tablet PO (07:45)
[2018-11-11] MEDS: Lisinopril 20 MG Tablet PO (07:45)
[2018-11-11] MEDS: Venlafaxine XR 150 MG Capsule PO (07:45)
[2018-11-11] MEDS: buPROPion (XL) 150 MG TABLET.XL PO (07:45)
[2018-11-11] MEDS: Senna/Docusate Sodium 1 Tablet 2 TABLET PO (07:45)
[2018-11-11] MEDS: Aspirin 81 MG TAB.CHEW PO (07:45)
--- NOTE | 2018-11-11 11:10 | PN_ITS ---
Subjective: Patient seen per PT notes patient able to pivot now. Objective: GENERAL: cooperative HEENT: Atraumatic; EYES; right eye with the patch NECK; supple, normal thyroid, RESPIRATORY: Diminished to auscultation bilaterally, CARDIOVASCULAR: Regular S1 S2, GI: soft, non-tender, normoactive bowel sounds, : No Renal angle tenderness; EXTREMITIES: No edema, no clubbing, no cyanosis. NEURO: Awake; left sided hemiplegia SKIN: No Rash PSYCH; Normal affect Vitals/I&O's: Vital Signs Temp Pulse Resp BP Pulse Ox 98.0 F 66 16 131/86 H 95 11/11/18 07:37 11/11/18 07:37 11/11/18 07:37 11/11/18 07:37 11/11/18 07:37 Oxygen Delivery Method Room Air Weight: 77.5 kg Body Mass Index (BMI) 26.8 Finger Stick Blood Glucose 122 Intake and Output for Last 24 Hours 11/09/18 11/10/18 11/11/18 23:59 23:59 23:59 Intake Total 440 / 440 120 / 120 Balance 440 / 440 120 / 120 Current Medications Acetaminophen (Tylenol) 1,000 mg PO Q8H PRN PRN PRN Reason: MILD PAIN (1-3/10) Last Admin: 11/09/18 21:00 Dose: 500 mg Alprazolam (Xanax) 0.25 mg PO QHS [facility] Last Admin: 11/10/18 21:19 Dose: 0.25 mg Aspirin (Aspirin, Baby) 81 mg PO DAILY@0800 [facility] Last Admin: 11/11/18 07:45 Dose: 81 mg Bisacodyl (Dulcolax) 10 mg RECTAL .PRN X 1 PRN PRN Reason: Constipation Bupropion HCl (Wellbutrin Xl) 150 mg PO DAILY [facility] Last Admin: 11/11/18 07:45 Dose: 150 mg Clopidogrel Bisulfate (Plavix) 75 mg PO DAILY [facility] Last Admin: 11/11/18 07:45 Dose: 75 mg Enoxaparin Sodium (Lovenox) 40 mg SC DAILY@0600 [facility] Last Admin: 11/11/18 05:16 Dose: 40 mg Levothyroxine Sodium (Synthroid) 75 mcg PO DAILY@0600 [facility] Last Admin: 11/11/18 05:16 Dose: 75 mcg Lisinopril (Zestril) 20 mg PO DAILY [facility] Last Admin: 11/11/18 07:45 Dose: 20 mg Magnesium Hydroxide (Milk Of Magnesia) 30 ml PO .PRN X 1 PRN PRN Reason: Constipation Melatonin (Melatonin) 10 mg PO QHS [facility] Last Admin: 11/10/18 21:19 Dose: 10 mg Potassium Chloride (K-Dur) 10 meq PO DAILY [facility] Last Admin: 11/11/18 07:45 Dose: 10 meq Senna/Docusate Sodium (Senokot-S, Yessy-Colace) 2 tablet PO BID [facility] Last Admin: 11/11/18 07:45 Dose: 2 tablet Venlafaxine HCl (Effexor Xr) 150 mg PO DAILY [facility] Last Admin: 11/11/18 07:45 Dose: 150 mg Medical Necessity - Tobacco Use Smoking Status: Never smoker Tobacco Use: Non-smoker Assessment/Plan All Active Problems (Last Updated 11/09/18 @ 13:22 by Rachel Spring, TECHNOLOGY RESOURCE TEACHER-C) CVA (cerebral vascular accident) (Acute) Patient is a 78-year-old lady admitted to the inpatient rehab unit following acute pontine infarct with residual left-sided paralysis. 1. Acute pontine infarct with residual left-sided paralysis with significant debility patient admitted to the inpatient rehab unit where patient is currently undergoing therapy 2. Paroxysmal atrial fibrillation rate controlled patient not on systemic anticoagulation due to significant risk for falls patient was instead placed on dual antiplatelet therapy with aspirin and Plavix 3. Coronary artery disease with previous CABG and subsequent PCI currently on recommended medications 4. Hypertension-blood pressure controlled, home medications continued with dose adjustment as needed 5. Hypothyroidism-patient is on levothyroxine home dose continued 6. Depression with anxiety 7. History of brain tomorrow with previous radiation therapy with subsequent severe ataxia 8. DVT prophylaxis SC Lovenox Code Visit Inpatient E&M: 55386 Subs Hosp L2
--- NOTE | 2018-11-11 11:36 | PN.NEURO_ITS ---
Subjective: Per nursing no issues overnight. Per patient her blurred vision is improving daily to right eye and denies any further double vision. She continues to rotate eye patch. Patient denies headache, dizziness and or lightheadedness. Patient states she is tolerating therapies well. - Physical Exam General: Alert, Oriented x3, Cooperative HEENT: Atraumatic, PERRLA Oral: Moist Mucosa Neck: Supple, No JVD Lungs: Clear to auscultation, Normal air movement Cardiovascular: Regular rate, Regular Rhythm Abdomen: Bowel Sounds Present, Soft, Non Tender Extremities: No clubbing, No cyanosis, No edema Musculoskeletal: No Tenderness to Palpation of Joints or Extremities Neurological: - - Deep Tendon Reflexes 2+/4 and Symmetrical, - - Cranial nerves II-XII intact,except for increased movement to lateral rotate right eye, but minimal to medial rotate right eye. Left upper extremity pronator drift, strength 3/5. Right extremities strength 4/5 Psych/Mental Status: Normal Affect, Appropriate, Alert and oriented to time, place, person, mood and affect Vital Signs Temp Pulse Resp BP Pulse Ox 98.0 F 66 16 131/86 H 95 11/11/18 07:37 11/11/18 07:37 11/11/18 07:37 11/11/18 07:37 11/11/18 07:37 Oxygen Delivery Method Room Air Weight: 77.5 kg Body Mass Index (BMI) 26.8 Finger Stick Blood Glucose 122 Intake and Output for Last 24 Hours 11/09/18 11/10/18 11/11/18 23:59 23:59 23:59 Intake Total 440 / 440 120 / 120 Balance 440 / 440 120 / 120 Medical Necessity - Tobacco Use Smoking Status: Never smoker Tobacco Use: Non-smoker Assessment/Plan All Active Problems (Last Updated 11/09/18 @ 13:22 by Rachel Spring NP-C) CVA (cerebral vascular accident) (Acute) The patient is a 78 year old female with PMH CAD, HTN, hyperlipidemia, hypothyroidism, anxiety/depression and chronic severe ataxia with hx of prior brain tumor s/p radiation and prior left pontine infarct admitted to [facility] on 11/02/2018 with debility status post acute right pontine infarct for greater than 3 hours of therapy daily with a goal of return back home at or near her prior level of functional independence. Patient presents to the [facility] ED on 10/31/18 with history of onset at 9:00 pm the evening prior, increased balance difficulties above baseline as well as vision changes w/ blurred and double vision with both eyes open and inability to medial rotate her R eye. She also had nausea, severely worsened debility with vision changes. NIH was 2 and was not a TPA candidate. On CTA of head w/wo contrast atherosclerotic calcifications at right carotid bulb and the proximal segment of the left vertebral artery with mild luminal narrowing; CT of brain without contrast showed chronic involutional changes; EKG NSR, Right BBB with no change from prior EKG in May,; CXR with no acu te pathology. On 11/01/2018 CT and MRI of brain w/wo contrast showed tiny acute pontine infarct. On 11/02/2018 echocardiogram done with EF of 55-60%. Patient lives with spouse and is wheel chair bound and modified independence with all pivot transfers and ADLs, except has assist with showering and tub/shower transfers. Aspiration precautions and was on mechanical soft, nectar thickened liquids at home. Plan -PT for gait stability -OT for ADLs -ST for dysphagia -Analgesics as needed -Bowel protocol -Acute right pontine infarct, history of prior left pontine infarct- Continue aspirin, Plavix. Reported allergy to statin. -Chronic severe ataxia with history of prior brain tumor status post radiation -CAD status post CABG x2 and PCI-continue aspirin, Plavix. -post cardiac procedure A-Fib in 2013- no anticoagulation per cardiology notes and documentation, patient had normal 30 day event monitor in 2016, and multiple EKGs showing NSR thereafter -Hypertension-continue lisinopril -Hyperlipidemia-allergy to statin. -Hypothyroidism-continue Synthroid -Anxiety/depression-continue venlafaxine, bupropion, Xanax -Right bundle branch block-EKG on admission with right bundle branch block. No change from prior EKG May 2018 - Blurred vision to right eye with decrease medial and lateral rotation- continue to rotate eye patch -DVT prophylaxis on Lovenox, Josh hose, SCDs -Further medical management per hospitalist recommendation, hospitalist consult -Follow-up with PCP and neurology as outpatient on discharge
[2018-11-11 14:46] LABS: Hematocrit 40.2 % (37-47); Hemoglobin 13.5 g/dl (12.0-15.0); Mean Corp Hgb Conc 33.6 g/gl (32-36); Mean Corpuscular Hgb 32.1 pg (27.0-32.0); Mean Corpuscular Volume 95.5 fL (81-99); Mean Platelet Vol. 9.4 fl (6.2-12.0); Platelet Count 300 K/mm3 (150-450); RBC Distribution Width CV 13.5 % (11.6-14.6); RBC Distribution Width SD 44.8 fl (35.1-43.9); Red Blood Count 4.21 M/mm3 (4.2-5.4); White Blood Count 4.7 K/mm3 (4.4-11.0)
[2018-11-11 14:47] LABS: Scan Indicated on CBC? Y/N NO
[2018-11-11 15:05] LABS: Anion Gap 4 (5-15); BUN 15 mg/dL (7-18); BUN/Creat Ratio 18.9 RATIO (10-20); Calcium,Total 8.7 mg/dL (8.5-10.1); Chloride 105 mmol/L (98-107); Creatinine, Serum 0.79 mg/dL (0.55-1.02); EST Glomerular Filtration Rate 74 mL/min (>60); Est Glom Filt Rate - Afr Amer 90 mL/min (>60); Estimated Creatinine Clearance 45.09 ml/min; Glucose 84 mg/dL (74-106); Sodium Level 137 mmol/L (136-145)
--- NOTE | 2018-11-11 19:30 | NURSING ---
Family reporting patient is having more confusion. Patient is also having frequency of urine and occasional incontinence. New order for UA C&S. Afebrile.
[2018-11-11 20:04] VITALS: BP 154/88; PULSE 76; RESP 16; TEMP 36.4; O2SAT 92
[2018-11-11] MEDS: ALPRAZolam 0.25 MG Tablet PO (21:11)
[2018-11-11] MEDS: MELATONIN 10 MG TABLET PO (21:11)
--- NOTE | 2018-11-12 02:06 | NURSING ---
REVIEWED AND AGREE WITH RE[employer] DRIVER'S FIM AND HANDOFF CHARTING.
[2018-11-12] MEDS: Enoxaparin 40 MG/0.4 ML Syringe SC (06:22)
[2018-11-12] MEDS: Levothyroxine 75 MCG Tablet PO (06:22)
[2018-11-12 06:42] LABS: Red Blood Cells-Urine 0 SEEN /hpf (0-5)
[2018-11-12 07:00] LABS: Color, Urine Yellow (Yellow); Glucose, Dipstick Normal (Normal); Ketone-Dipstick Negative (Negative); Leukocyte Esterase-Dipstick 500 /ul (Negative); Nitrite-Dipstick Negative (Negative); Occult Blood-Urine 10 /ul (Negative); Protein-Dipstick Negative (Negative); Squamous Epithelial Cells - UA 5-10 SEEN /hpf (5-10); Urine Bilirubin Dipstick Negative (Negative); Urine Clarity Sl. Cloudy (Clear); Urine Urobilinogen Normal (Normal); Urine pH 6.5 (5.0 - 8.0); White Blood Cells 10-25 SEEN /hpf (0-5)
[2018-11-12 07:01] LABS: Bacteria 2+ /hpf (None Seen)
[2018-11-12 07:43] VITALS: BP 142/84; PULSE 73; RESP 18; TEMP 36.3; O2SAT 92
[2018-11-12] MEDS: Senna/Docusate Sodium 1 Tablet 2 TABLET PO ×2 (07:49→21:37)
[2018-11-12] MEDS: Lisinopril 20 MG Tablet PO (07:49)
[2018-11-12] MEDS: Clopidogrel Bisulfate 75 MG Tablet PO (07:49)
[2018-11-12] MEDS: buPROPion (XL) 150 MG TABLET.XL PO (07:49)
[2018-11-12] MEDS: Venlafaxine XR 150 MG Capsule PO (07:49)
[2018-11-12] MEDS: Aspirin 81 MG TAB.CHEW PO (07:49)
--- NOTE | 2018-11-12 08:44 | PCM.PN.NEU ---
Subjective: Per nursing no issues overnight. per patient her blurred vision is improving to right eye, denies double vision, headache, dizziness, or lightheadedness. Team meeting held this am. Per PT/OT patient tolerating therapies well and ST continues to work on chin tuck with mechanical soft and nectar thickened liquids to prevent aspiration. Patient is tolerating Olsen water protocol. During Team Dr. Alan discussed contacting her corporate development intern DR. Jones for recommendations on current and possible new medication. Patient will be re-teamed next week. - Physical Exam General: Alert, Oriented x3, Cooperative HEENT: Atraumatic, PERRLA Oral: Moist Mucosa Neck: Supple, No JVD Lungs: Clear to auscultation, Normal air movement Cardiovascular: Regular rate, Regular Rhythm Abdomen: Bowel Sounds Present, Soft, Non Tender Extremities: No clubbing, No cyanosis, No edema Musculoskeletal: No Tenderness to Palpation of Joints or Extremities Neurological: - - Deep Tendon Reflexes 2+/4 and Symmetrical, Cranial nerves II-XII intact,except for increased movement to lateral rotate right eye, but minimal to medial rotate right eye. Left upper extremity pronator drift, strength 3/5. Right extremities strength 4/5 Psych/Mental Status: Normal Affect, Appropriate, Alert and oriented to time, place, person, mood and affect Vital Signs Temp Pulse Resp BP Pulse Ox 97.4 F L 73 18 142/84 H 92 11/12/18 07:43 11/12/18 07:43 11/12/18 07:43 11/12/18 07:43 11/12/18 07:43 Oxygen Delivery Method Room Air Weight: 81.193 kg Body Mass Index (BMI) 26.8 Finger Stick Blood Glucose 122 Intake and Output for Last 24 Hours 11/10/18 11/11/18 11/12/18 23:59 23:59 23:59 Intake Total 440 / 440 720 / 720 360 / 360 Balance 440 / 440 720 / 720 360 / 360 Laboratory Tests Past 24 Hrs 11/11/18 11/11/18 11/12/18 14:40 14:40 06:40 WBC 4.7 RBC 4.21 Hgb 13.5 Hct 40.2 MCV 95.5 MCH 32.1 H MCHC 33.6 RDW 13.5 RDW Differential 44.8 H Plt Count 300 MPV 9.4 Sodium 137 Potassium 4.0 Chloride 105 Carbon Dioxide 28.0 Anion Gap 4 L BUN 15 Creatinine 0.79 Estim Creat Clear Calc 45.09 Est GFR (MDRD) Af Amer 90 Est GFR (MDRD) Non-Af 74 BUN/Creatinine Ratio 18.9 Glucose 84 Calcium 8.7 Magnesium 2.0 Urine Color Yellow Urine Clarity Sl. Cloudy Urine pH 6.5 Ur Specific [place] 1.020 Urine Protein Negative Urine Glucose (UA) Normal Urine Ketones Negative Urine Occult Blood 10 H Urine Nitrite Negative Urine Bilirubin Negative Urine Urobilinogen Normal Ur Leukocyte Esterase 500 H Urine RBC 0 SEEN Urine WBC 10-25 SEEN Ur Squamous Epith Cells 5-10 SEEN Urine Bacteria 2+ Urine Mucus Not Reportable Medical Necessity - Tobacco Use Smoking Status: Never smoker Tobacco Use: Non-smoker Assessment/Plan All Active Problems (Last Updated 11/09/18 @ 13:22 by Rachel Spring, FINISHER FINE DIAMOND DIES-C) Internuclear ophthalmoplegia of right eye (Acute) CVA (cerebral vascular accident) (Acute) The patient is a 78 year old female with PMH CAD, HTN, hyperlipidemia, hypothyroidism, anxiety/depression and chronic severe ataxia with hx of prior brain tumor s/p radiation and prior left pontine infarct admitted to [facility] on 11/02/2018 with debility status post acute right pontine infarct for greater than 3 hours of therapy daily with a goal of return back home at or near her prior level of functional independence. Patient presents to the [facility] ED on 10/31/18 with history of onset at 9:00 pm the evening prior, increased balance difficulties above baseline as well as vision changes w/ blurred and double vision with both eyes open and inability to medial rotate her R eye. She also had nausea, severely worsened debility with vision changes. NIH was 2 and was not a TPA candidate. On CTA of head w/wo contrast atherosclerotic calcifications at right carotid bulb and the proximal segment of the left vertebral artery with mild luminal narrowing; CT of brain without contrast showed chronic involutional changes; EKG NSR, Right BBB with no change from prior EKG in May,; CXR with no acute pathology. On 11/01/2018 CT and MRI of brain w/wo contrast showed tiny acute pontine infarct. On 11/02/2018 echocardiogram done with EF of 55-60%. Patient lives with spouse and is wheel chair bound and modified independence with all pivot transfers and ADLs, except has assist with showering and tub/shower transfers. Aspiration precautions and was on mechanical soft, nectar thickened liquids at home. Plan -PT for gait stability -OT for ADLs -ST for dysphagia -Analgesics as needed -Bowel protocol -Acute right pontine infarct, history of prior left pontine infarct- Continue aspirin, Plavix. Reported allergy to statin. -Chronic severe ataxia with history of prior brain tumor status post radiation -CAD status post CABG x2 and PCI-continue aspirin, Plavix. -post cardiac procedure A-Fib in 2013- no anticoagulation per cardiology notes and documentation, patient had normal 30 day event monitor in 2016, and multiple EKGs showing NSR thereafter -Hypertension-continue lisinopril -Hyperlipidemia-allergy to statin. -Hypothyroidism-continue Synthroid -Anxiety/depression-continue venlafaxine, bupropion, Xanax -Right bundle branch block-EKG on admission with right bundle branch block. No change from prior EKG May 2018 - Internuclear ophthalmoplegia (INESSA):right eye with decrease medial and lateral rotation- continue to rotate eye patch -DVT prophylaxis on Lovenox, Josh hose, SCDs -Further medical management per hospitalist recommendation, hospitalist consult -Follow-up with PCP and neurology as outpatient on discharge
--- NOTE | 2018-11-12 08:48 | PN.NEURO_ITS ---
Subjective: Per nursing no issues overnight. per patient her blurred vision is improving to right eye, denies double vision, headache, dizziness, or lightheadedness. Team meeting held this am. Per PT/OT patient tolerating therapies well and ST continues to work on chin tuck with mechanical soft and nectar thickened liquids to prevent aspiration. Patient is tolerating Olsen water protocol. During Team Dr. Alan discussed contacting her slitting machine operator DR. Jones for recommendations on current and possible new medication. Patient will be re- teamed next week. - Physical Exam General: Alert, Oriented x3, Cooperative HEENT: Atraumatic, PERRLA Oral: Moist Mucosa Neck: Supple, No JVD Lungs: Clear to auscultation, Normal air movement Cardiovascular: Regular rate, Regular Rhythm Abdomen: Bowel Sounds Present, Soft, Non Tender Extremities: No clubbing, No cyanosis, No edema Musculoskeletal: No Tenderness to Palpation of Joints or Extremities Neurological: - - Deep Tendon Reflexes 2+/4 and Symmetrical, Cranial nerves II- XII intact,except for increased movement to lateral rotate right eye, but minimal to medial rotate right eye. Left upper extremity pronator drift, strength 3/5. Right extremities strength 4/5 Psych/Mental Status: Normal Affect, Appropriate, Alert and oriented to time, place, person, mood and affect Vital Signs Temp Pulse Resp BP Pulse Ox 97.4 F L 73 18 142/84 H 92 11/12/18 07:43 11/12/18 07:43 11/12/18 07:43 11/12/18 07:43 11/12/18 07:43 Oxygen Delivery Method Room Air Weight: 81.193 kg Body Mass Index (BMI) 26.8 Finger Stick Blood Glucose 122 Intake and Output for Last 24 Hours 11/10/18 11/11/18 11/12/18 23:59 23:59 23:59 Intake Total 440 / 440 720 / 720 360 / 360 Balance 440 / 440 720 / 720 360 / 360 Laboratory Tests Past 24 Hrs 11/11/18 11/11/18 11/12/18 14:40 14:40 06:40 WBC 4.7 RBC 4.21 Hgb 13.5 Hct 40.2 MCV 95.5 MCH 32.1 H MCHC 33.6 RDW 13.5 RDW Differential 44.8 H Plt Count 300 MPV 9.4 Sodium 137 Potassium 4.0 Chloride 105 Carbon Dioxide 28.0 Anion Gap 4 L BUN 15 Creatinine 0.79 Estim Creat Clear Calc 45.09 Est GFR (MDRD) Af Amer 90 Est GFR (MDRD) Non-Af 74 BUN/Creatinine Ratio 18.9 Glucose 84 Calcium 8.7 Magnesium 2.0 Urine Color Yellow Urine Clarity Sl. Cloudy Urine pH 6.5 Ur Specific [place] 1.020 Urine Protein Negative Urine Glucose (UA) Normal Urine Ketones Negative Urine Occult Blood 10 H Urine Nitrite Negative Urine Bilirubin Negative Urine Urobilinogen Normal Ur Leukocyte Esterase 500 H Urine RBC 0 SEEN Urine WBC 10-25 SEEN Ur Squamous Epith Cells 5-10 SEEN Urine Bacteria 2+ Urine Mucus Not Reportable Medical Necessity - Tobacco Use Smoking Status: Never smoker Tobacco Use: Non-smoker Assessment/Plan All Active Problems (Last Updated 11/09/18 @ 13:22 by Rachel Spring, CONSULTANT INTERN-C) Internuclear ophthalmoplegia of right eye (Acute) CVA (cerebral vascular accident) (Acute) The patient is a 78 year old female with PMH CAD, HTN, hyperlipidemia, hypothyroidism, anxiety/depression and chronic severe ataxia with hx of prior brain tumor s/p radiation and prior left pontine infarct admitted to [facility] on 11/02/2018 with debility status post acute right pontine infarct for greater than 3 hours of therapy daily with a goal of return back home at or near her prior level of functional independence. Patient presents to the [facility] ED on 10/31/18 with history of onset at 9:00 pm the evening prior, increased balance difficulties above baseline as well as vision changes w/ blurred and double vision with both eyes open and inability to medial rotate her R eye. She also had nausea, severely worsened debility with vision changes. NIH was 2 and was not a TPA candidate. On CTA of head w/wo contrast atherosclerotic calcifications at right carotid bulb and the proximal segment of the left vertebral artery with mild luminal narrowing; CT of brain without contrast showed chronic involutional changes; EKG NSR, Right BBB with no change from prior EKG in May,; CXR with no acute pathology. On 11/01/2018 CT and MRI of brain w/wo contrast showed tiny acute pontine infarct. On 11/02/2018 echocardiogram done with EF of 55-60%. Patient lives with spouse and is wheel chair bound and modified independence with all pivot transfers and ADLs, except has assist with showering and tub/shower transfers. Aspiration precautions and was on mechanical soft, nectar thickened liquids at home. Plan -PT for gait stability -OT for ADLs -ST for dysphagia -Analgesics as needed -Bowel protocol -Acute right pontine infarct, history of prior left pontine infarct- Continue aspirin, Plavix. Reported allergy to statin. -Chronic severe ataxia with history of prior brain tumor status post radiation -CAD status post CABG x2 and PCI-continue aspirin, Plavix. -post cardiac procedure A-Fib in 2013- no anticoagulation per cardiology notes and documentation, patient had normal 30 day event monitor in 2016, and multiple EKGs showing NSR thereafter -Hypertension-continue lisinopril -Hyperlipidemia-allergy to statin. -Hypothyroidism-continue Synthroid -Anxiety/depression-continue venlafaxine, bupropion, Xanax -Right bundle branch block-EKG on admission with right bundle branch block. No change from prior EKG May 2018 - Internuclear ophthalmoplegia (INESSA):right eye with decrease medial and lateral rotation- continue to rotate eye patch -DVT prophylaxis on Lovenox, Josh hose, SCDs -Further medical management per hospitalist recommendation, hospitalist consult -Follow-up with PCP and neurology as outpatient on discharge
--- NOTE | 2018-11-12 13:47 | CASEMGMT ---
Team meeting held today with pt and daughter present. Pt is receiving PT/OT/ST and progressing with therapy. At this time pt is progressing and continuation with treatment plan is warranted. No d/c date set. Pt plans to return home with her spouse and daughter provides much assistance. Reteam next week. Chucky HEARN
--- NOTE | 2018-11-12 18:30 | NURSING ---
Reviewed and agree with SUPERVISOR IN CHARGE'S FIMS and charting.
[2018-11-12] MEDS: ALPRAZolam 0.25 MG Tablet PO (21:37)
[2018-11-12] MEDS: MELATONIN 10 MG TABLET PO (21:37)
[2018-11-12 21:40] VITALS: BP 143/84; PULSE 78; RESP 16; TEMP 36.4; O2SAT 94
--- NOTE | 2018-11-13 02:12 | NURSING ---
REVIEWED AND AGREE WITH HYDRATE CONTROL TENDER'S FIM AND HANDOFF CHARTING.
[2018-11-13] MEDS: Levothyroxine 75 MCG Tablet PO (06:06)
[2018-11-13 07:42] VITALS: BP 124/71; PULSE 74; RESP 18; TEMP 36.6; O2SAT 93
[2018-11-13] MEDS: Lisinopril 20 MG Tablet PO (08:10)
[2018-11-13] MEDS: buPROPion (XL) 150 MG TABLET.XL PO (08:10)
[2018-11-13] MEDS: APIXABAN 5 MG TABLET PO ×2 (08:11→21:20)
[2018-11-13] MEDS: Aspirin 81 MG TAB.CHEW PO (08:11)
[2018-11-13] MEDS: Venlafaxine XR 150 MG Capsule PO (08:11)
[2018-11-13] MEDS: Senna/Docusate Sodium 1 Tablet 2 TABLET PO (08:12)
--- NOTE | 2018-11-13 10:54 | PN_ITS ---
Subjective: Patient seen still complains of blurred and double vision. Objective: GENERAL: cooperative HEENT: Atraumatic; EYES; anicteric NECK; supple, normal thyroid, RESPIRATORY: Diminished to auscultation bilaterally, CARDIOVASCULAR: Regular S1 S2, GI: soft, non-tender, normoactive bowel sounds, : No Renal angle tenderness; EXTREMITIES: No edema, no clubbing, no cyanosis. NEURO: Awake; left sided hemiplegia SKIN: No Rash PSYCH; Normal affect Vitals/I&O's: Vital Signs Temp Pulse Resp BP Pulse Ox 97.9 F 74 18 124/71 H 93 11/13/18 07:42 11/13/18 07:42 11/13/18 07:42 11/13/18 07:42 11/13/18 07:42 Oxygen Delivery Method Room Air Weight: 80.2 kg Body Mass Index (BMI) 26.8 Finger Stick Blood Glucose 122 Intake and Output for Last 24 Hours 11/11/18 11/12/18 11/13/18 23:59 23:59 23:59 Intake Total 720 / 720 960 / 960 Balance 720 / 720 960 / 960 Current Medications Acetaminophen (Tylenol) 1,000 mg PO Q8H PRN PRN PRN Reason: MILD PAIN (1-310) Last Admin: 11/09/18 21:00 Dose: 500 mg Alprazolam (Xanax) 0.25 mg PO QHS [facility] Last Admin: 11/12/18 21:37 Dose: 0.25 mg Apixaban (Eliquis) 5 mg PO BID [facility] Last Admin: 11/13/18 08:11 Dose: 5 mg Aspirin (Aspirin, Baby) 81 mg PO DAILY@0800 [facility] Last Admin: 11/13/18 08:11 Dose: 81 mg Bisacodyl (Dulcolax) 10 mg RECTAL .PRN X 1 PRN PRN Reason: Constipation Bupropion HCl (Wellbutrin Xl) 150 mg PO DAILY [facility] Last Admin: 11/13/18 08:10 Dose: 150 mg Levothyroxine Sodium (Synthroid) 75 mcg PO DAILY@0600 [facility] Last Admin: 11/13/18 06:06 Dose: 75 mcg Lisinopril (Zestril) 20 mg PO DAILY [facility] Last Admin: 11/13/18 08:10 Dose: 20 mg Magnesium Hydroxide (Milk Of Magnesia) 30 ml PO .PRN X 1 PRN PRN Reason: Constipation Melatonin (Melatonin) 10 mg PO QHS [facility] Last Admin: 11/12/18 21:37 Dose: 10 mg Potassium Chloride (K-Dur) 10 meq PO DAILY [facility] Last Admin: 11/13/18 08:11 Dose: 10 meq Senna/Docusate Sodium (Senokot-S, Yessy-Colace) 2 tablet PO BID [facility] Last Admin: 11/13/18 08:12 Dose: 2 tablet Venlafaxine HCl (Effexor Xr) 150 mg PO DAILY [facility] Last Admin: 11/13/18 08:11 Dose: 150 mg Medical Necessity - Tobacco Use Smoking Status: Never smoker Tobacco Use: Non-smoker Assessment/Plan All Active Problems (Last Updated 11/09/18 @ 13:22 by Rachel Spring, JAVA DEVELOPER ARCHITECT-C) Internuclear ophthalmoplegia of right eye (Acute) CVA (cerebral vascular accident) (Acute) Patient is a 78-year-old lady admitted to the inpatient rehab unit following acute pontine infarct with residual left-sided paralysis. 1. Acute pontine infarct with residual left-sided paralysis with significant debility patient admitted to the inpatient rehab unit where patient is currently undergoing therapy. Patient still complains of double vision as of 11/13/2018. 2. Paroxysmal atrial fibrillation rate controlled patient not on systemic anticoagulation due to significant risk for falls patient was instead placed on dual antiplatelet therapy with aspirin and Plavix 3. Coronary artery disease with previous CABG and subsequent PCI currently on recommended medications 4. Hypertension-blood pressure controlled, home medications continued with dose adjustment as needed 5. Hypothyroidism-patient is on levothyroxine home dose continued 6. Depression with anxiety 7. History of brain tomorrow with previous radiation therapy with subsequent severe ataxia 8. DVT prophylaxis SC Lovenox Code Visit Inpatient E&M: 95128 Subs Hosp L2
--- NOTE | 2018-11-13 11:56 | PN.NEURO_ITS ---
Subjective: Per nursing no issues overnight. Per patient her vision continues to improve to right eye, continues to have some blurred vision, but denies double vision. Patient continues to rotate her eye patch. Dr. Alan spoke with Dr. Jones, and from cardiology standpoint ok to start Eliquis 5 mg bid. Plavix and lovenox discontinued. Will continue aspirin 81 mg. Patient aware and agrees. Per patient she is tolerating therapies well. Denied further questions or concerns. - Physical Exam General: Alert, Oriented x3, Cooperative HEENT: Atraumatic, PERRLA Oral: Moist Mucosa Neck: Supple, No JVD Lungs: Clear to auscultation, Normal air movement Cardiovascular: Regular rate, Regular Rhythm Abdomen: Bowel Sounds Present, Soft, Non Tender, Non-Distended Extremities: No clubbing, No cyanosis, No edema Musculoskeletal: No Tenderness to Palpation of Joints or Extremities Neurological: - - Deep Tendon Reflexes 2+/4 and Symmetrical, Cranial nerves II- XII intact,except for increased movement to lateral rotate right eye, but minimal to medial rotate right eye. Left upper extremity pronator drift, strength 3/5. Right extremities strength 4/5 Psych/Mental Status: Normal Affect, Appropriate, Alert and oriented to time, place, person, mood and affect Vital Signs Temp Pulse Resp BP Pulse Ox 97.9 F 74 18 124/71 H 93 11/13/18 07:42 11/13/18 07:42 11/13/18 07:42 11/13/18 07:42 11/13/18 07:42 Oxygen Delivery Method Room Air Weight: 80.2 kg Body Mass Index (BMI) 26.8 Finger Stick Blood Glucose 122 Intake and Output for Last 24 Hours 11/11/18 11/12/18 11/13/18 23:59 23:59 23:59 Intake Total 720 / 720 960 / 960 Balance 720 / 720 960 / 960 Medical Necessity - Tobacco Use Smoking Status: Never smoker Tobacco Use: Non-smoker Assessment/Plan All Active Problems (Last Updated 11/09/18 @ 13:22 by Rachel Spring NP-C) Internuclear ophthalmoplegia of right eye (Acute) CVA (cerebral vascular accident) (Acute) The patient is a 78 year old female with PMH CAD, HTN, hyperlipidemia, hypothyroidism, anxiety/depression and chronic severe ataxia with hx of prior brain tumor s/p radiation and prior left pontine infarct admitted to [facility] IP RU on 11/02/2018 with debility status post acute right pontine infarct for greater than 3 hours of therapy daily with a goal of return back home at or near her prior level of functional independence. Patient presents to the [facility] ED on 10/31/18 with history of onset at 9:00 pm the evening prior, increased balance difficulties above baseline as well as vision changes w/ blurred and double vision with both eyes open and inability to medial rotate her R eye. She also had nausea, severely worsened debility with vision changes. NIH was 2 and was not a TPA candidate. On CTA of head w/wo contrast atherosclerotic calcifications at right carotid bulb and the proximal segment of the left vertebral artery with mild luminal narrowing; CT of brain without contrast showed chronic involutional changes; EKG NSR, Right BBB with no change from prior EKG in May,; CXR with no acute pathology. On 11/01/2018 CT and MRI of brain w/wo contrast showed tiny acute pontine infarct. On 11/02/2018 echocardiogram done with EF of 55-60%. Patient lives with spouse and is wheel chair bound and modified independence with all pivot transfers and ADLs, except has assist with showering and tub/shower transfers. Aspiration precautions and was on mechanical soft, nectar thickened liquids at home. Plan -PT for gait stability -OT for ADLs -ST for dysphagia -Analgesics as needed -Bowel protocol -Acute right pontine infarct, history of prior left pontine infarct- Continue aspirin, D/C plavix and start eliquis 5 mg bid. Reported allergy to statin. -Chronic severe ataxia with history of prior brain tumor status post radiation -CAD status post CABG x2 and PCI-continue aspirin -post cardiac procedure A-Fib in 2013- no anticoagulation per cardiology notes and documentation, patient had normal 30 day event monitor in 2016, and multiple EKGs showing NSR thereafter -Hypertension-continue lisinopril -Hyperlipidemia-allergy to statin. -Hypothyroidism-continue Synthroid -Anxiety/depression-continue venlafaxine, bupropion, Xanax -Right bundle branch block-EKG on admission with right bundle branch block. No change from prior EKG May 2018 - Internuclear ophthalmoplegia (INESSA):right eye with decrease medial and lateral rotation- continue to rotate eye patch -DVT prophylaxis Josh osborne, SCDs Lovenox d/c d/t started eliquis -Further medical management per hospitalist recommendation, hospitalist consult -Follow-up with PCP and neurology as outpatient on discharge
[2018-11-13] MEDS: MELATONIN 10 MG TABLET PO (21:20)
[2018-11-13] MEDS: ALPRAZolam 0.25 MG Tablet PO (21:21)
[2018-11-13 22:00] VITALS: BP 130/86; PULSE 71; RESP 16; TEMP 36.7; O2SAT 93
--- NOTE | 2018-11-14 00:50 | NURSING ---
[facility]
[2018-11-14] MEDS: Levothyroxine 75 MCG Tablet PO (06:04)
[2018-11-14 07:39] VITALS: BP 143/91; PULSE 75; RESP 18; TEMP 36.6; O2SAT 93
[2018-11-14] MEDS: buPROPion (XL) 150 MG TABLET.XL PO (07:59)
[2018-11-14] MEDS: Venlafaxine XR 150 MG Capsule PO (07:59)
[2018-11-14] MEDS: Lisinopril 20 MG Tablet PO (07:59)
[2018-11-14] MEDS: Aspirin 81 MG TAB.CHEW PO (07:59)
[2018-11-14] MEDS: APIXABAN 5 MG TABLET PO ×2 (08:01→20:12)
[2018-11-14] MEDS: MELATONIN 10 MG TABLET PO (20:10)
[2018-11-14] MEDS: Acetaminophen 500 MG Tablet 1000 MG PO (20:11)
[2018-11-14] MEDS: ALPRAZolam 0.25 MG Tablet PO (20:11)
[2018-11-14 22:00] VITALS: BP 134/91; PULSE 77; RESP 16; RESP 17; TEMP 36.7; O2SAT 94
[2018-11-15] MEDS: Levothyroxine 75 MCG Tablet PO (06:22)
[2018-11-15] MEDS: buPROPion (XL) 150 MG TABLET.XL PO (07:32)
[2018-11-15] MEDS: Senna/Docusate Sodium 1 Tablet 2 TABLET PO ×2 (07:32→21:22)
[2018-11-15] MEDS: Lisinopril 20 MG Tablet PO (07:32)
[2018-11-15] MEDS: Aspirin 81 MG TAB.CHEW PO (07:33)
[2018-11-15] MEDS: Venlafaxine XR 150 MG Capsule PO (07:33)
[2018-11-15] MEDS: APIXABAN 5 MG TABLET PO ×2 (07:33→21:22)
[2018-11-15 07:35] VITALS: BP 144/84; PULSE 67; RESP 18; TEMP 36.6; O2SAT 93
--- NOTE | 2018-11-15 10:15 | PN_ITS ---
Subjective: Patient is seen no issues overnight per nursing staff. Urine cultures previously obtained came back positive for mixed organisms probably asymptomatic bacteriuria no indication for treatment discussed with the neuro team. Objective: GENERAL: cooperative HEENT: Atraumatic; EYES; anicteric NECK; supple, normal thyroid, RESPIRATORY: Diminished to auscultation bilaterally, CARDIOVASCULAR: Regular S1 S2, GI: soft, non-tender, normoactive bowel sounds, : No Renal angle tenderness; EXTREMITIES: No edema, no clubbing, no cyanosis. NEURO: Awake; left sided hemiplegia SKIN: No Rash PSYCH; Normal affect Vitals/I&O's: Vital Signs Temp Pulse Resp BP Pulse Ox 98 F 67 18 144/84 H 93 11/15/18 07:35 11/15/18 07:35 11/15/18 07:35 11/15/18 07:35 11/15/18 07:35 Oxygen Delivery Method Room Air Weight: 80.2 kg Body Mass Index (BMI) 26.8 Finger Stick Blood Glucose 122 Intake and Output for Last 24 Hours 11/13/18 11/14/18 11/15/18 23:59 23:59 23:59 Intake Total 360 / 360 440 / 440 260 / 260 Balance 360 / 360 440 / 440 260 / 260 Microbiology Past 72 Hours 11/12/18 06:40 Urine, Clean Catch Urine Culture - Final Mixed Gram Positive Organisms Current Medications Acetaminophen (Tylenol) 1,000 mg PO Q8H PRN PRN PRN Reason: MILD PAIN (1-3/10) Last Admin: 11/14/18 20:11 Dose: 1,000 mg Alprazolam (Xanax) 0.25 mg PO QHS [facility] Last Admin: 11/14/18 20:11 Dose: 0.25 mg Apixaban (Eliquis) 5 mg PO BID [facility] Last Admin: 11/15/18 07:33 Dose: 5 mg Aspirin (Aspirin, Baby) 81 mg PO DAILY@0800 [facility] Last Admin: 11/15/18 07:33 Dose: 81 mg Bisacodyl (Dulcolax) 10 mg RECTAL .PRN X 1 PRN PRN Reason: Constipation Bupropion HCl (Wellbutrin Xl) 150 mg PO DAILY [facility] Last Admin: 11/15/18 07:32 Dose: 150 mg Levothyroxine Sodium (Synthroid) 75 mcg PO DAILY@0600 [facility] Last Admin: 11/15/18 06:22 Dose: 75 mcg Lisinopril (Zestril) 20 mg PO DAILY [facility] Last Admin: 11/15/18 07:32 Dose: 20 mg Magnesium Hydroxide (Milk Of Magnesia) 30 ml PO .PRN X 1 PRN PRN Reason: Constipation Melatonin (Melatonin) 10 mg PO QHS [facility] Last Admin: 11/14/18 20:10 Dose: 10 mg Potassium Chloride (K-Dur) 10 meq PO DAILY [facility] Last Admin: 11/15/18 07:33 Dose: 10 meq Senna/Docusate Sodium (Senokot-S, Yessy-Colace) 2 tablet PO BID [facility] Last Admin: 11/15/18 07:32 Dose: 2 tablet Venlafaxine HCl (Effexor Xr) 150 mg PO DAILY [facility] Last Admin: 11/15/18 07:33 Dose: 150 mg Medical Necessity - Tobacco Use Smoking Status: Never smoker Tobacco Use: Non-smoker Assessment/Plan All Active Problems (Last Updated 11/09/18 @ 13:22 by Rachel Spring, EMULSION COATER-C) Internuclear ophthalmoplegia of right eye (Acute) CVA (cerebral vascular accident) (Acute) Patient is a 78-year-old lady admitted to the inpatient rehab unit following acute pontine infarct with residual left-sided paralysis. 1. Acute pontine infarct with residual left-sided paralysis with significant debility patient admitted to the inpatient rehab unit where patient is currently undergoing therapy. Patient still complains of double vision as of 11/13/2018. 2. Paroxysmal atrial fibrillation rate controlled patient not on systemic anticoagulation due to significant risk for falls patient was instead placed on dual antiplatelet therapy with aspirin and Plavix 3. Coronary artery disease with previous CABG and subsequent PCI currently on recommended medications 4. Hypertension-blood pressure controlled, home medications continued with dose adjustment as needed 5. Hypothyroidism-patient is on levothyroxine home dose continued 6. Depression with anxiety 7. History of brain tomorrow with previous radiation therapy with subsequent severe ataxia 8. DVT prophylaxis SC Lovenox 9. Asymptomatic bacteriuria treatment not indicated Code Visit Inpatient E&M: 76543 Subs Hosp L2
[2018-11-15 19:18] VITALS: BP 148/82; PULSE 82; RESP 18; TEMP 36.5; O2SAT 95
[2018-11-15] MEDS: ALPRAZolam 0.25 MG Tablet PO (21:22)
[2018-11-15] MEDS: MELATONIN 10 MG TABLET PO (21:22)
[2018-11-15 22:00] VITALS: PULSE 82; RESP 18; O2SAT 95
[2018-11-16] MEDS: Levothyroxine 75 MCG Tablet PO (05:56)
[2018-11-16 08:17] VITALS: BP 138/76; PULSE 80; RESP 18; TEMP 36.6; O2SAT 94
[2018-11-16] MEDS: Aspirin 81 MG TAB.CHEW PO (08:18)
[2018-11-16] MEDS: APIXABAN 5 MG TABLET PO ×2 (08:18→21:40)
[2018-11-16] MEDS: Venlafaxine XR 150 MG Capsule PO (08:18)
[2018-11-16] MEDS: Senna/Docusate Sodium 1 Tablet 2 TABLET PO (08:18)
[2018-11-16] MEDS: buPROPion (XL) 150 MG TABLET.XL PO (08:19)
[2018-11-16] MEDS: Lisinopril 20 MG Tablet PO (08:19)
--- NOTE | 2018-11-16 10:30 | PN.NEURO_ITS ---
Subjective: Per nursing no issues overnight. Per patient right eye vision is improving and only has mild blurred vision to right eye. Denies double vision. Patient continues to rotate eye patch and is tolerating therapies. Patient denies further questions or concerns. - Physical Exam General: Alert, Oriented x3, Cooperative HEENT: Atraumatic, PERRLA Oral: Moist Mucosa Neck: Supple, No JVD Lungs: Clear to auscultation, Normal air movement Cardiovascular: Regular rate, Regular Rhythm Abdomen: Bowel Sounds Present, Soft, Non Tender Extremities: No clubbing, No cyanosis, No edema Musculoskeletal: No Tenderness to Palpation of Joints or Extremities Neurological: - - Deep Tendon Reflexes 2+/4 and Symmetrical, Cranial nerves II- XII intact,except for increased movement to lateral rotate right eye, but minimal to medial rotate right eye. Left upper extremity pronator drift, strength 3/5. Right extremities strength 4/5 Psych/Mental Status: Normal Affect, Appropriate, Alert and oriented to time, place, person, mood and affect Vital Signs Temp Pulse Resp BP Pulse Ox 97.8 F 80 18 138/76 H 94 11/16/18 08:17 11/16/18 08:17 11/16/18 08:17 11/16/18 08:17 11/16/18 08:17 Oxygen Delivery Method Room Air Weight: 80.2 kg Body Mass Index (BMI) 26.8 Finger Stick Blood Glucose 122 Intake and Output for Last 24 Hours 11/14/18 11/15/18 11/16/18 23:59 23:59 23:59 Intake Total 440 / 440 780 / 780 Balance 440 / 440 780 / 780 Microbiology Past 72 Hours 11/12/18 06:40 Urine Culture - Final Urine, Clean Catch Mixed Gram Positive Organisms Medical Necessity - Tobacco Use Smoking Status: Never smoker Tobacco Use: Non-smoker Assessment/Plan All Active Problems (Last Updated 11/09/18 @ 13:22 by Rachel Spring NP-C) Internuclear ophthalmoplegia of right eye (Acute) CVA (cerebral vascular accident) (Acute) The patient is a 78 year old female with PMH CAD, HTN, hyperlipidemia, hypothyroidism, anxiety/depression and chronic severe ataxia with hx of prior brain tumor s/p radiation and prior left pontine infarct admitted to [facility] on 11/02/2018 with debility status post acute right pontine infarct for greater than 3 hours of therapy daily with a goal of return back home at or near her prior level of functional independence. Patient presents to the [facility] ED on 10/31/18 with history of onset at 9:00 pm the evening prior, increased balance difficulties above baseline as well as vision changes w/ blurred and double vision with both eyes open and inability to medial rotate her R eye. She also had nausea, severely worsened debility with vision changes. NIH was 2 and was not a TPA candidate. On CTA of head w/wo contrast atherosclerotic calcifications at right carotid bulb and the proximal segment of the left vertebral artery with mild luminal narrowing; CT of brain without contrast showed chronic involutional changes; EKG NSR, Right BBB with no change from prior EKG in May,; CXR with no acute pathology. On 11/01/2018 CT and MRI of brain w/wo contrast showed tiny acute pontine infarct. On 11/02/2018 echocardiogram done with EF of 55-60%. Patient lives with spouse and is wheel chair bound and modified independence with all pivot transfers and ADLs, except has assist with showering and tub/shower transfers. Aspiration precautions and was on mechanical soft, nectar thickened liquids at home. Plan -PT for gait stability -OT for ADLs -ST for dysphagia -Analgesics as needed -Bowel protocol -Acute right pontine infarct, history of prior left pontine infarct- Continue aspirin and eliquis 5 mg bid. Reported allergy to statin. -Chronic severe ataxia with history of prior brain tumor status post radiation -CAD status post CABG x2 and PCI-continue aspirin -post cardiac procedure A-Fib in 2013- no anticoagulation per cardiology notes and documentation, patient had normal 30 day event monitor in 2016, and multiple EKGs showing NSR thereafter -Hypertension-continue lisinopril -Hyperlipidemia-allergy to statin. -Hypothyroidism-continue Synthroid -Anxiety/depression-continue venlafaxine, bupropion, Xanax -Right bundle branch block-EKG on admission with right bundle branch block. No change from prior EKG May 2018 - Internuclear ophthalmoplegia (INESSA):right eye with decrease medial and lateral rotation- continue to rotate eye patch -DVT prophylaxis Josh osborne, SCDs on eliquis -Further medical management per hospitalist recommendation, hospitalist consult -Follow-up with PCP and neurology as outpatient on discharge
--- NOTE | 2018-11-16 18:12 | NURSING ---
reviewed and agree with A[employer]P MECHANIC's FIMS and charting
[2018-11-16 19:22] VITALS: BP 141/82; PULSE 73; RESP 18; TEMP 36.7; O2SAT 98
[2018-11-16] MEDS: MELATONIN 10 MG TABLET PO (21:40)
[2018-11-16] MEDS: ALPRAZolam 0.25 MG Tablet PO (21:40)
[2018-11-16 22:00] VITALS: PULSE 73; RESP 18; O2SAT 98
[2018-11-17] MEDS: Levothyroxine 75 MCG Tablet PO (06:29)
[2018-11-17 07:06] VITALS: BP 130/72; PULSE 88; RESP 18; TEMP 36.6; O2SAT 95
[2018-11-17] MEDS: Venlafaxine XR 150 MG Capsule PO (07:41)
[2018-11-17] MEDS: Aspirin 81 MG TAB.CHEW PO (07:41)
[2018-11-17] MEDS: APIXABAN 5 MG TABLET PO ×2 (07:42→21:44)
[2018-11-17] MEDS: Lisinopril 20 MG Tablet PO (07:42)
[2018-11-17] MEDS: buPROPion (XL) 150 MG TABLET.XL PO (07:42)
[2018-11-17] MEDS: Acetaminophen 500 MG Tablet 1000 MG PO (09:59)
[2018-11-17 10:05] VITALS: BP 118/83; PULSE 76
--- NOTE | 2018-11-17 12:48 | PN.NEURO_ITS ---
Subjective: Per nursing no issues overnight. Per patient continues to tolerate therapies and blurred vision to right eye improving. Denies further questions or concerns. - Physical Exam General: Alert, Oriented x3, Cooperative HEENT: Atraumatic, PERRLA Oral: Moist Mucosa Neck: Supple, No JVD Lungs: Clear to auscultation, Normal air movement Cardiovascular: Regular rate, Regular Rhythm Abdomen: Bowel Sounds Present, Soft, Non Tender Extremities: No clubbing, No cyanosis, No edema Musculoskeletal: No Tenderness to Palpation of Joints or Extremities Neurological: - - Deep Tendon Reflexes 2+/4 and Symmetrical, Cranial nerves II-XII intact,except for increased movement to lateral rotate right eye, but minimal to medial rotate right eye. Left upper extremity pronator drift, strength 3/5. Right extremities strength 4/5 Psych/Mental Status: Normal Affect, Appropriate, Alert and oriented to time, place, person, mood and affect Vital Signs Temp Pulse Resp BP Pulse Ox 97.8 F 76 18 118/83 H 95 11/17/18 07:06 11/17/18 10:05 11/17/18 07:06 11/17/18 10:05 11/17/18 07:06 Oxygen Delivery Method Room Air Weight: 80.2 kg Body Mass Index (BMI) 26.8 Finger Stick Blood Glucose 122 Intake and Output for Last 24 Hours 11/15/18 11/16/18 11/17/18 23:59 23:59 23:59 Intake Total 780 / 780 240 / 240 240 / 240 Balance 780 / 780 240 / 240 240 / 240 Medical Necessity - Tobacco Use Smoking Status: Never smoker Tobacco Use: Non-smoker Assessment/Plan All Active Problems (Last Updated 11/09/18 @ 13:22 by Rcahel Spring, HOSPITAL WELLNESS COORDINATOR-C) Internuclear ophthalmoplegia of right eye (Acute) CVA (cerebral vascular accident) (Acute) The patient is a 78 year old female with PMH CAD, HTN, hyperlipidemia, hypothyroidism, anxiety/depression and chronic severe ataxia with hx of prior brain tumor s/p radiation and prior left pontine infarct admitted to [facility] on 11/02/2018 with debility status post acute right pontine infarct for greater than 3 hours of therapy daily with a goal of return back home at or near her prior level of functional independence. Patient presents to the [facility] ED on 10/31/18 with history of onset at 9:00 pm the evening prior, increased balance difficulties above baseline as well as vision changes w/ blurred and double vision with both eyes open and inability to medial rotate her R eye. She also had nausea, severely worsened debility with vision changes. NIH was 2 and was not a TPA candidate. On CTA of head w/wo contrast atherosclerotic calcifications at right carotid bulb and the proximal segment of the left vertebral artery with mild luminal narrowing; CT of brain without contrast showed chronic involutional changes; EKG NSR, Right BBB with no change from prior EKG in May,; CXR with no acute pathology. On 11/01/2018 CT and MRI of brain w/wo contrast showed tiny acute pontine infarct. On 11/02/2018 echocardiogram done with EF of 55-60%. Patient lives with spouse and is wheel chair bound and modified independence with all pivot transfers and ADLs, except has assist with showering and tub/shower transfers. Aspiration precautions and was on mechanical soft, nectar thickened liquids at home. Plan -PT for gait stability -OT for ADLs -ST for dysphagia -Analgesics as needed -Bowel protocol -Acute right pontine infarct, history of prior left pontine infarct- Continue aspirin and eliquis 5 mg bid. Reported allergy to statin. -Chronic severe ataxia with history of prior brain tumor status post radiation -CAD status post CABG x2 and PCI-continue aspirin -post cardiac procedure A-Fib in 2013- no anticoagulation per cardiology notes and documentation, patient had normal 30 day event monitor in 2016, and multiple EKGs showing NSR thereafter -Hypertension-continue lisinopril -Hyperlipidemia-allergy to statin. -Hypothyroidism-continue Synthroid -Anxiety/depression-continue venlafaxine, bupropion, Xanax -Right bundle branch block-EKG on admission with right bundle branch block. No change from prior EKG May 2018 - Internuclear ophthalmoplegia (INESSA):right eye with decrease medial and lateral rotation- continue to rotate eye patch -DVT prophylaxis Josh osborne, SCDs on eliquis -Further medical management per hospitalist recommendation, hospitalist consult -Follow-up with PCP and neurology as outpatient on discharge
--- NOTE | 2018-11-17 14:41 | CASEMGMT ---
Social Work Receivied message from Anastasia Barksdale CM who states pt has recently started services with [facility]. Return call and VM requesting more information on services provided through [facility]. SW to follow. NADIYA Nelson
[2018-11-17 19:34] VITALS: BP 140/91; PULSE 70; RESP 18; TEMP 36.3; O2SAT 98
[2018-11-17 21:33] VITALS: PULSE 70; RESP 18; O2SAT 98
[2018-11-17] MEDS: MELATONIN 10 MG TABLET PO (21:44)
[2018-11-17] MEDS: ALPRAZolam 0.25 MG Tablet PO (21:44)
[2018-11-18] MEDS: Levothyroxine 75 MCG Tablet PO (06:06)
[2018-11-18 07:06] VITALS: BP 138/83; PULSE 70; RESP 18; TEMP 36.7; O2SAT 94
[2018-11-18] MEDS: APIXABAN 5 MG TABLET PO ×2 (07:59→21:54)
[2018-11-18] MEDS: Lisinopril 20 MG Tablet PO (07:59)
[2018-11-18] MEDS: Venlafaxine XR 150 MG Capsule PO (07:59)
[2018-11-18] MEDS: buPROPion (XL) 150 MG TABLET.XL PO (07:59)
[2018-11-18] MEDS: Aspirin 81 MG TAB.CHEW PO (07:59)
--- NOTE | 2018-11-18 09:12 | PCM.PN.NEU ---
<Rachel Spring - Last Filed: 11/18/18 09:15> Subjective: Per nursing no issues overnight. Patient continues to tolerate therapy and voices her blurred vision is improving daily to right eye. Denies double vision. Patient continues to rotate eye patch. Denies further questions or concerns. - Physical Exam General: Alert, Oriented x3, Cooperative HEENT: Atraumatic Neck: Supple, No JVD Lungs: Clear to auscultation, Normal air movement Cardiovascular: Regular rate, Regular Rhythm Abdomen: Bowel Sounds Present, Soft, Non Tender Extremities: No clubbing, No cyanosis, No edema Musculoskeletal: No Tenderness to Palpation of Joints or Extremities Neurological: - - Deep Tendon Reflexes 2+/4 and Symmetrical, Cranial nerves II-XII intact,except for increased movement to lateral rotate right eye, but minimal to medial rotate right eye. Left upper and lower extremity strength 4/5. Right extremities strength 4/5 Psych/Mental Status: Normal Affect, Appropriate, Alert and oriented to time, place, person, mood and affect Vital Signs Temp Pulse Resp BP Pulse Ox 98.0 F 70 18 138/83 H 94 11/18/18 07:06 11/18/18 07:06 11/18/18 07:06 11/18/18 07:06 11/18/18 07:06 Oxygen Delivery Method Room Air Weight: 80.7 kg Body Mass Index (BMI) 26.8 Finger Stick Blood Glucose 122 Intake and Output for Last 24 Hours 11/16/18 11/17/18 11/18/18 23:59 23:59 23:59 Intake Total 240 / 240 360 / 360 Balance 240 / 240 360 / 360 Medical Necessity - Tobacco Use Smoking Status: Never smoker Tobacco Use: Non-smoker Assessment/Plan All Active Problems (Last Updated 11/09/18 @ 13:22 by Rachel Spring, SIMULATION DEVELOPER-C) Internuclear ophthalmoplegia of right eye (Acute) CVA (cerebral vascular accident) (Acute) The patient is a 78 year old female with PMH CAD, HTN, hyperlipidemia, hypothyroidism, anxiety/depression and chronic severe ataxia with hx of prior brain tumor s/p radiation and prior left pontine infarct admitted to [facility] on 11/02/2018 with debility status post acute right pontine infarct for greater than 3 hours of therapy daily with a goal of return back home at or near her prior level of functional independence. Patient presents to the [facility] ED on 10/31/18 with history of onset at 9:00 pm the evening prior, increased balance difficulties above baseline as well as vision changes w/ blurred and double vision with both eyes open and inability to medial rotate her R eye. She also had nausea, severely worsened debility with vision changes. NIH was 2 and was not a TPA candidate. On CTA of head w/wo contrast atherosclerotic calcifications at right carotid bulb and the proximal segment of the left vertebral artery with mild luminal narrowing; CT of brain without contrast showed chronic involutional changes; EKG NSR, Right BBB with no change from prior EKG in May,; CXR with no acute pathology. On 11/01/2018 CT and MRI of brain w/wo contrast showed tiny acute pontine infarct. On 11/02/2018 echocardiogram done with EF of 55-60%. Patient lives with spouse and is wheel chair bound and modified independence with all pivot transfers and ADLs, except has assist with showering and tub/shower transfers. Aspiration precautions and was on mechanical soft, nectar thickened liquids at home. Plan -PT for gait stability -OT for ADLs -ST for dysphagia -Analgesics as needed -Bowel protocol -Acute right pontine infarct, history of prior left pontine infarct- Continue aspirin and eliquis 5 mg bid. Reported allergy to statin. -Chronic severe ataxia with history of prior brain tumor status post radiation -CAD status post CABG x2 and PCI-continue aspirin -post cardiac procedure A-Fib in 2013- no anticoagulation per cardiology notes and documentation, patient had normal 30 day event monitor in 2016, and multiple EKGs showing NSR thereafter -Hypertension-continue lisinopril -Hyperlipidemia-allergy to statin. -Hypothyroidism-continue Synthroid -Anxiety/depression-continue venlafaxine, bupropion, Xanax -Right bundle branch block-EKG on admission with right bundle branch block. No change from prior EKG May 2018 - Internuclear ophthalmoplegia (INESSA):right eye with decrease medial and lateral rotation- continue to rotate eye patch -DVT prophylaxis Josh osborne, SCDs on eliquis -Further medical management per hospitalist recommendation, hospitalist consult -Follow-up with PCP and neurology as outpatient on discharge <Moises Angelo - Last Filed: 11/18/18 12:10> - Physical Exam Vital Signs Temp Pulse Resp BP Pulse Ox 36.7 C 70 18 138/83 H 94 11/18/18 07:06 11/18/18 07:06 11/18/18 07:06 11/18/18 07:06 11/18/18 07:06 Oxygen Delivery Method Room Air Weight: 80.7 kg Body Mass Index (BMI) 26.8 Finger Stick Blood Glucose 122 Intake and Output for Last 24 Hours 11/16/18 11/17/18 11/18/18 23:59 23:59 23:59 Intake Total 240 / 240 360 / 360 Balance 240 / 240 360 / 360 Assessment/Plan Patient interviewed and examined. Agree with SIMULATION DEVELOPER notes and plan as above. And is tolerating therapies, no complaints. Pain is controlled. Reports her double vision is stable/improved.
--- NOTE | 2018-11-18 09:15 | PN.NEURO_ITS ---
<Rachel Spring - Last Filed: 11/18/18 09:15> Subjective: Per nursing no issues overnight. Patient continues to tolerate therapy and voices her blurred vision is improving daily to right eye. Denies double vision. Patient continues to rotate eye patch. Denies further questions or concerns. - Physical Exam General: Alert, Oriented x3, Cooperative HEENT: Atraumatic Neck: Supple, No JVD Lungs: Clear to auscultation, Normal air movement Cardiovascular: Regular rate, Regular Rhythm Abdomen: Bowel Sounds Present, Soft, Non Tender Extremities: No clubbing, No cyanosis, No edema Musculoskeletal: No Tenderness to Palpation of Joints or Extremities Neurological: - - Deep Tendon Reflexes 2+/4 and Symmetrical, Cranial nerves II- XII intact,except for increased movement to lateral rotate right eye, but minimal to medial rotate right eye. Left upper and lower extremity strength 4/5. Right extremities strength 4/5 Psych/Mental Status: Normal Affect, Appropriate, Alert and oriented to time, place, person, mood and affect Vital Signs Temp Pulse Resp BP Pulse Ox 98.0 F 70 18 138/83 H 94 11/18/18 07:06 11/18/18 07:06 11/18/18 07:06 11/18/18 07:06 11/18/18 07:06 Oxygen Delivery Method Room Air Weight: 80.7 kg Body Mass Index (BMI) 26.8 Finger Stick Blood Glucose 122 Intake and Output for Last 24 Hours 11/16/18 11/17/18 11/18/18 23:59 23:59 23:59 Intake Total 240 / 240 360 / 360 Balance 240 / 240 360 / 360 Medical Necessity - Tobacco Use Smoking Status: Never smoker Tobacco Use: Non-smoker Assessment/Plan All Active Problems (Last Updated 11/09/18 @ 13:22 by Rachel Spring, [employer]-C) Internuclear ophthalmoplegia of right eye (Acute) CVA (cerebral vascular accident) (Acute) The patient is a 78 year old female with PMH CAD, HTN, hyperlipidemia, hypothyroidism, anxiety/depression and chronic severe ataxia with hx of prior brain tumor s/p radiation and prior left pontine infarct admitted to [facility] on 11/02/2018 with debility status post acute right pontine infarct for greater than 3 hours of therapy daily with a goal of return back home at or near her prior level of functional independence. Patient presents to the [facility] ED on 10/31/18 with history of onset at 9:00 pm the evening prior, increased balance difficulties above baseline as well as vision changes w/ blurred and double vision with both eyes open and inability to medial rotate her R eye. She also had nausea, severely worsened debility with vision changes. NIH was 2 and was not a TPA candidate. On CTA of head w/wo contrast atherosclerotic calcifications at right carotid bulb and the proximal segment of the left vertebral artery with mild luminal narrowing; CT of brain without contrast showed chronic involutional changes; EKG NSR, Right BBB with no change from prior EKG in May,; CXR with no acute pathology. On 11/01/2018 CT and MRI of brain w/wo contrast showed tiny acute pontine infarct. On 11/02/2018 echocardiogram done with EF of 55-60%. Patient lives with spouse and is wheel chair bound and modified independence with all pivot transfers and ADLs, except has assist with showering and tub/shower transfers. Aspiration precautions and was on mechanical soft, nectar thickened liquids at home. Plan -PT for gait stability -OT for ADLs -ST for dysphagia -Analgesics as needed -Bowel protocol -Acute right pontine infarct, history of prior left pontine infarct- Continue aspirin and eliquis 5 mg bid. Reported allergy to statin. -Chronic severe ataxia with history of prior brain tumor status post radiation -CAD status post CABG x2 and PCI-continue aspirin -post cardiac procedure A-Fib in 2013- no anticoagulation per cardiology notes and documentation, patient had normal 30 day event monitor in 2016, and multiple EKGs showing NSR thereafter -Hypertension-continue lisinopril -Hyperlipidemia-allergy to statin. -Hypothyroidism-continue Synthroid -Anxiety/depression-continue venlafaxine, bupropion, Xanax -Right bundle branch block-EKG on admission with right bundle branch block. No change from prior EKG May 2018 - Internuclear ophthalmoplegia (INESSA):right eye with decrease medial and lateral rotation- continue to rotate eye patch -DVT prophylaxis Josh osborne, SCDs on eliquis -Further medical management per hospitalist recommendation, hospitalist consult -Follow-up with PCP and neurology as outpatient on discharge <oMises Angelo - Last Filed: 11/18/18 12:10> - Physical Exam Vital Signs Temp Pulse Resp BP Pulse Ox 36.7 C 70 18 138/83 H 94 11/18/18 07:06 11/18/18 07:06 11/18/18 07:06 11/18/18 07:06 11/18/18 07:06 Oxygen Delivery Method Room Air Weight: 80.7 kg Body Mass Index (BMI) 26.8 Finger Stick Blood Glucose 122 Intake and Output for Last 24 Hours 11/16/18 11/17/18 11/18/18 23:59 23:59 23:59 Intake Total 240 / 240 360 / 360 Balance 240 / 240 360 / 360 Assessment/Plan Patient interviewed and examined. Agree with [employer] notes and plan as above. And is tolerating therapies, no complaints. Pain is controlled. Reports her double vision is stable/improved.
[2018-11-18 19:36] VITALS: BP 142/89; PULSE 74; RESP 18; TEMP 36.7; O2SAT 93
[2018-11-18] MEDS: ALPRAZolam 0.25 MG Tablet PO (21:53)
[2018-11-18] MEDS: MELATONIN 10 MG TABLET PO (21:54)
[2018-11-19] MEDS: Levothyroxine 75 MCG Tablet PO (06:03)
[2018-11-19] MEDS: buPROPion (XL) 150 MG TABLET.XL PO (07:58)
[2018-11-19] MEDS: Aspirin 81 MG TAB.CHEW PO (07:59)
[2018-11-19] MEDS: Lisinopril 20 MG Tablet PO (07:59)
[2018-11-19] MEDS: Venlafaxine XR 150 MG Capsule PO (07:59)
[2018-11-19] MEDS: APIXABAN 5 MG TABLET PO ×2 (08:00→21:39)
[2018-11-19] MEDS: Senna/Docusate Sodium 1 Tablet 2 TABLET PO (08:01)
[2018-11-19 10:00] VITALS: BP 126/75; PULSE 71; RESP 18; TEMP 36.8; O2SAT 94
--- NOTE | 2018-11-19 10:45 | CASEMGMT ---
Team meeting held today with pt and pt daughter present. Pt is receiving PT/OT/ST and progressing well with therapy. Pt and daughter feel pt is ready to return home and would like d/c set for Friday11/21/18. Team is agreeable and therapy is recommending home health PT/ST. Pt and dgt would like to use [facility]. Pt will be d/c with [facility] and family is concerned about the cost of this. Pt has needed DME including W/C, walker and tub bench. SW will follow for d/c planning. NADIYA Nelson
--- NOTE | 2018-11-19 10:54 | PN.NEURO_ITS ---
Subjective: Per nursing no issues overnight. Team meeting held today. Per therapies increase in strength and mobility and blurred vision is improving daily to right eye. Denies blurred vision. Patient will be discharged home with PT/ST on Friday11/21/2018 - Physical Exam General: Alert, Oriented x3, Cooperative HEENT: Atraumatic, PERRLA Oral: Moist Mucosa Neck: Supple, No JVD Lungs: Clear to auscultation, Normal air movement Cardiovascular: Regular rate, Regular Rhythm Abdomen: Bowel Sounds Present, Soft, Non Tender Extremities: No clubbing, No cyanosis, No edema Musculoskeletal: No Tenderness to Palpation of Joints or Extremities Neurological: Cranial nerves II-XII grossly intact, Deep Tendon Reflexes 2+/4 and Symmetrical, Neuro grossly intact, - - Deep Tendon Reflexes 2+/4 and Symmetrical, Cranial nerves II-XII intact,except for increased movement to lateral rotate right eye, but minimal to medial rotate right eye. Left upper and lower extremity strength 4/5. Right extremities strength 5/5 Psych/Mental Status: Normal Affect, Appropriate, Alert and oriented to time, place, person, mood and affect Vital Signs Temp Pulse Resp BP Pulse Ox 98.1 F 74 18 142/89 H 93 11/18/18 19:36 11/18/18 19:36 11/18/18 19:36 11/18/18 19:36 11/18/18 19:36 Oxygen Delivery Method Room Air Weight: 80.7 kg Body Mass Index (BMI) 26.8 Finger Stick Blood Glucose 122 Intake and Output for Last 24 Hours 11/17/18 11/18/18 11/19/18 23:59 23:59 23:59 Intake Total 360 / 360 Balance 360 / 360 Medical Necessity - Tobacco Use Smoking Status: Never smoker Tobacco Use: Non-smoker Assessment/Plan All Active Problems (Last Updated 11/09/18 @ 13:22 by MARLY Hauser) Internuclear ophthalmoplegia of right eye (Acute) CVA (cerebral vascular accident) (Acute) The patient is a 78 year old female with PMH CAD, HTN, hyperlipidemia, hypothyroidism, anxiety/depression and chronic severe ataxia with hx of prior brain tumor s/p radiation and prior left pontine infarct admitted to [facility] on 11/02/2018 with debility status post acute right pontine infarct for greater than 3 hours of therapy daily with a goal of return back home at or near her prior level of functional independence. Patient presents to the [facility] ED on 10/31/18 with history of onset at 9:00 pm the evening prior, increased balance difficulties above baseline as well as vision changes w/ blurred and double vision with both eyes open and inability to medial rotate her R eye. She also had nausea, severely worsened debility with vision changes. NIH was 2 and was not a TPA candidate. On CTA of head w/wo contrast atherosclerotic calcifications at right carotid bulb and the proximal segment of the left vertebral artery with mild luminal narrowing; CT of brain without contrast showed chronic involutional changes; EKG NSR, Right BBB with no change from prior EKG in May,; CXR with no acute pathology. On 11/01/2018 CT and MRI of brain w/wo contrast showed tiny acute pontine infarct. On 11/02/2018 echocardiogram done with EF of 55-60%. Patient lives with spouse and is wheel chair bound and modified independence with all pivot transfers and ADLs, except has assist with showering and tub/shower transfers. Aspiration precautions and was on mechanical soft, nectar thickened liquids at home. Plan -PT for gait stability -OT for ADLs -ST for dysphagia -Analgesics as needed -Bowel protocol -Acute right pontine infarct, history of prior left pontine infarct- Continue aspirin and eliquis 5 mg bid. Reported allergy to statin. -Chronic severe ataxia with history of prior brain tumor status post radiation -CAD status post CABG x2 and PCI-continue aspirin -post cardiac procedure A-Fib in 2013- no anticoagulation per cardiology notes and documentation, patient had normal 30 day event monitor in 2016, and multiple EKGs showing NSR thereafter -Hypertension-continue lisinopril -Hyperlipidemia-allergy to statin. -Hypothyroidism-continue Synthroid -Anxiety/depression-continue venlafaxine, bupropion, Xanax -Right bundle branch block-EKG on admission with right bundle branch block. No change from prior EKG May 2018 - Internuclear ophthalmoplegia (INESSA):right eye with decrease medial and lateral rotation- continue to rotate eye patch -DVT prophylaxis Josh osborne, SCDs on eliquis -Further medical management per hospitalist recommendation, hospitalist consult -Follow-up with PCP and neurology as outpatient on discharge. plan to discharge home on Friday11/21/2018 with home PT/ST.
[2018-11-19 19:00] VITALS: BP 146/85; PULSE 79; RESP 16; TEMP 36.6; O2SAT 94
[2018-11-19] MEDS: ALPRAZolam 0.25 MG Tablet PO (21:39)
[2018-11-19] MEDS: MELATONIN 10 MG TABLET PO (21:39)
[2018-11-20] MEDS: Levothyroxine 75 MCG Tablet PO (05:30)
[2018-11-20 07:33] VITALS: BP 126/75; PULSE 72; RESP 18; TEMP 36.7; O2SAT 95
[2018-11-20] MEDS: Venlafaxine XR 150 MG Capsule PO (07:38)
[2018-11-20] MEDS: Lisinopril 20 MG Tablet PO (07:38)
[2018-11-20] MEDS: APIXABAN 5 MG TABLET PO ×2 (07:39→21:05)
[2018-11-20] MEDS: Aspirin 81 MG TAB.CHEW PO (07:39)
[2018-11-20] MEDS: buPROPion (XL) 150 MG TABLET.XL PO (07:39)
--- NOTE | 2018-11-20 09:17 | PCM.PN.NEU ---
Subjective: Per nursing no issues overnight. Patient continues to have decreased blurred vision, denies blurred vision to right eye. Per patient is able to complete more tasks d/t vision improving. Rotating eye patch continues. - Physical Exam General: Alert, Oriented x3, Cooperative HEENT: Atraumatic, PERRLA Oral: Moist Mucosa Neck: Supple, No JVD Lungs: Clear to auscultation, Normal air movement Cardiovascular: Regular rate, Regular Rhythm Abdomen: Bowel Sounds Present, Soft, Non Tender Extremities: No clubbing, No cyanosis, No edema Neurological: - - Deep Tendon Reflexes 2+/4 and Symmetrical, Cranial nerves II-XII intact,except for increased movement to lateral rotate right eye, but minimal to medial rotate right eye. Left upper and lower extremity strength 4/5. Right extremities strength 5/5 Psych/Mental Status: Normal Affect, Appropriate, Alert and oriented to time, place, person, mood and affect Vital Signs Temp Pulse Resp BP Pulse Ox 98.1 F 72 18 126/75 H 95 11/20/18 07:33 11/20/18 07:33 11/20/18 07:33 11/20/18 07:33 11/20/18 07:33 Oxygen Delivery Method Room Air Weight: 80.7 kg Body Mass Index (BMI) 26.8 Finger Stick Blood Glucose 122 Intake and Output for Last 24 Hours 11/18/18 11/19/18 11/20/18 23:59 23:59 23:59 Intake Total 360 / 360 Balance 360 / 360 Medical Necessity - Tobacco Use Smoking Status: Never smoker Tobacco Use: Non-smoker Assessment/Plan All Active Problems (Last Updated 11/09/18 @ 13:22 by Rachel Spring, [employer]ORT[employer]IT[employer]-C) Internuclear ophthalmoplegia of right eye (Acute) CVA (cerebral vascular accident) (Acute) The patient is a 78 year old female with PMH CAD, HTN, hyperlipidemia, hypothyroidism, anxiety/depression and chronic severe ataxia with hx of prior brain tumor s/p radiation and prior left pontine infarct admitted to [facility] on 11/02/2018 with debility status post acute right pontine infarct for greater than 3 hours of therapy daily with a goal of return back home at or near her prior level of functional independence. Patient presents to the [facility] ED on 10/31/18 with history of onset at 9:00 pm the evening prior, increased balance difficulties above baseline as well as vision changes w/ blurred and double vision with both eyes open and inability to medial rotate her R eye. She also had nausea, severely worsened debility with vision changes. NIH was 2 and was not a TPA candidate. On CTA of head w/wo contrast atherosclerotic calcifications at right carotid bulb and the proximal segment of the left vertebral artery with mild luminal narrowing; CT of brain without contrast showed chronic involutional changes; EKG NSR, Right BBB with no change from prior EKG in May,; CXR with no acute pathology. On 11/01/2018 CT and MRI of brain w/wo contrast showed tiny acute pontine infarct. On 11/02/2018 echocardiogram done with EF of 55-60%. Patient lives with spouse and is wheel chair bound and modified independence with all pivot transfers and ADLs, except has assist with showering and tub/shower transfers. Aspiration precautions and was on mechanical soft, nectar thickened liquids at home. Plan -PT for gait stability -OT for ADLs -ST for dysphagia -Analgesics as needed -Bowel protocol -Acute right pontine infarct, history of prior left pontine infarct- Continue aspirin and eliquis 5 mg bid. Reported allergy to statin. -Chronic severe ataxia with history of prior brain tumor status post radiation -CAD status post CABG x2 and PCI-continue aspirin -post cardiac procedure A-Fib in 2013- no anticoagulation per cardiology notes and documentation, patient had normal 30 day event monitor in 2016, and multiple EKGs showing NSR thereafter -Hypertension-continue lisinopril -Hyperlipidemia-allergy to statin. -Hypothyroidism-continue Synthroid -Anxiety/depression-continue venlafaxine, bupropion, Xanax -Right bundle branch block-EKG on admission with right bundle branch block. No change from prior EKG May 2018 - Internuclear ophthalmoplegia (INESSA):right eye with decrease medial and lateral rotation- continue to rotate eye patch -DVT prophylaxis Josh osborne, SCDs on eliquis -Further medical management per hospitalist recommendation, hospitalist consult -Follow-up with PCP and neurology as outpatient on discharge. plan to discharge home on Friday11/21/2018 with home PT/ST.
--- NOTE | 2018-11-20 09:20 | PN.NEURO_ITS ---
Subjective: Per nursing no issues overnight. Patient continues to have decreased blurred vision, denies blurred vision to right eye. Per patient is able to complete more tasks d/t vision improving. Rotating eye patch continues. - Physical Exam General: Alert, Oriented x3, Cooperative HEENT: Atraumatic, PERRLA Oral: Moist Mucosa Neck: Supple, No JVD Lungs: Clear to auscultation, Normal air movement Cardiovascular: Regular rate, Regular Rhythm Abdomen: Bowel Sounds Present, Soft, Non Tender Extremities: No clubbing, No cyanosis, No edema Neurological: - - Deep Tendon Reflexes 2+/4 and Symmetrical, Cranial nerves II- XII intact,except for increased movement to lateral rotate right eye, but minimal to medial rotate right eye. Left upper and lower extremity strength 4/5. Right extremities strength 5/5 Psych/Mental Status: Normal Affect, Appropriate, Alert and oriented to time, place, person, mood and affect Vital Signs Temp Pulse Resp BP Pulse Ox 98.1 F 72 18 126/75 H 95 11/20/18 07:33 11/20/18 07:33 11/20/18 07:33 11/20/18 07:33 11/20/18 07:33 Oxygen Delivery Method Room Air Weight: 80.7 kg Body Mass Index (BMI) 26.8 Finger Stick Blood Glucose 122 Intake and Output for Last 24 Hours 11/18/18 11/19/18 11/20/18 23:59 23:59 23:59 Intake Total 360 / 360 Balance 360 / 360 Medical Necessity - Tobacco Use Smoking Status: Never smoker Tobacco Use: Non-smoker Assessment/Plan All Active Problems (Last Updated 11/09/18 @ 13:22 by Rachel Spring, PROPAGATION MANAGER-C) Internuclear ophthalmoplegia of right eye (Acute) CVA (cerebral vascular accident) (Acute) The patient is a 78 year old female with PMH CAD, HTN, hyperlipidemia, hypothyroidism, anxiety/depression and chronic severe ataxia with hx of prior brain tumor s/p radiation and prior left pontine infarct admitted to [facility] on 11/02/2018 with debility status post acute right anabelle bentley infarct for greater than 3 hours of therapy daily with a goal of return back home at or near her prior level of functional independence. Patient presents to the [facility] ED on 10/31/18 with history of onset at 9:00 pm the evening prior, increased balance difficulties above baseline as well as vision changes w/ blurred and double vision with both eyes open and inab ility to medial rotate her R eye. She also had nausea, severely worsened debility with vision changes. NIH was 2 and was not a TPA candidate. On CTA of head w/wo contrast atherosclerotic calcifications at right carotid bulb and the proximal segment of the left vertebral artery with mild luminal narrowing; CT of brain without contrast showed chronic involutional changes; EKG NSR, Right BBB with no change from prior EKG in May,; CXR with no acute pathology. On 11/01/2018 CT and MRI of brain w/wo contrast showed tiny acute pontine infarct. On 11/02/2018 echocardiogram done with EF of 55-60%. Patient lives with spouse and is wheel chair bound and modified independence with all pivot transfers and ADLs, except has assist with showering and tub/shower transfers. Aspiration precautions and was on mechanical soft, nectar thickened liquids at home. Plan -PT for gait stability -OT for ADLs -ST for dysphagia -Analgesics as needed -Bowel protocol -Acute right pontine infarct, history of prior left pontine infarct- Continue aspirin and eliquis 5 mg bid. Reported allergy to statin. -Chronic severe ataxia with history of prior brain tumor status post radiation -CAD status post CABG x2 and PCI-continue aspirin -post cardiac procedure A-Fib in 2013- no anticoagulation per cardiology notes and documentation, patient had normal 30 day event monitor in 2016, and multiple EKGs showing NSR thereafter -Hypertension-continue lisinopril -Hyperlipidemia-allergy to statin. -Hypothyroidism-continue Synthroid -Anxiety/depression-continue venlafaxine, bupropion, Xanax -Right bundle branch block-EKG on admission with right bundle branch block. No change from prior EKG May 2018 - Internuclear ophthalmoplegia (INESSA):right eye with decrease medial and lateral rotation- continue to rotate eye patch -DVT prophylaxis Josh osborne, TARAs on eliquis -Further medical management per hospitalist recommendation, hospitalist consult -Follow-up with PCP and neurology as outpatient on discharge. plan to discharge home on Friday11/21/2018 with home PT/ST.
--- NOTE | 2018-11-20 10:35 | CASEMGMT ---
Social Work SW spoke with [facility] (pt pharmacy) and they states there is no charge to pt for Jolynnquis. Referral made to [facility] for PT/ST and they are able to accept. Pt has all needed DME. Pt will be returning home with her spouse and dgt provides much assistance. Dgt to transport pt home on 11/21/18. No further d/c needs. NADIYA Nelson
--- NOTE | 2018-11-20 13:10 | DCINST_ITS ---
Addendum entered and electronically signed by MARLY Hauser 11/20/18 13:36: F/U load builder Original Note: - Discharge Diagnoses Reason(s) for Visit for Discharge Instructions: Debility secondary to Acute right pontine infarct You will use the following diet at home:: Cardiac Your food should be the consistency of: Mechanical soft (ground) Your liquids should be the consistency of: Shelly Thick Discharge Activity: Return to Normal Activity, May Not Drive, May Shower, Use Walker Weight Bearing Status: Weight bearing as tolerated Call your doctor if you observe: Fever of 101 or Higher, Coldness, Increased Pain, Numbness or Tingling, Change in Color, Inability to urinate, Inability to have a bowel movement, Shortness of breath, Dizziness, Fainting spells, Swelling in the ankles, Chest pain, Prolonged hiccoughing, Increased palpitations (irregular heartbeat), Calf discomfort, Uncontrolled pain Additional Instructions: Continue to rotate eye patch Allergies/Adverse Reactions: Allergies atorvastatin Allergy (Verified 10/31/18 12:48) Other muscle weakness codeine Allergy (Verified 10/31/18 12:48) Unknown levofloxacin [From Levaquin] Allergy (Verified 10/31/18 12:48) Pain in joints Penicillins Allergy (Verified 10/31/18 12:48) Swelling tongue swells and hives pravastatin Allergy (Verified 10/31/18 12:48) myalgia Sulfa (Sulfonamide Antibiotics) Allergy (Verified 10/31/18 12:48) Swelling tongue swell and hives Medications to take at Discharge ALPRAZolam [Xanax] 0.25 mg PO QHS tablet 11/20/18 Acetaminophen [Tylenol] 1,000 mg PO Q8H PRN PRN tablet 11/20/18 Apixaban [Eliquis] 5 mg PO BID tablet 11/20/18 Aspirin [Aspirin, Baby] 81 mg PO DAILY@0800 tab.chew 11/20/18 Levothyroxine [Synthroid] 75 mcg PO DAILY@0600 tablet 11/20/18 Lisinopril [Zestril] 20 mg PO DAILY tablet 11/20/18 Melatonin 10 mg PO QHS tablet 11/20/18 Potassium Chloride [K-Dur] 10 meq PO DAILY tablet 11/20/18 Senna/Docusate Sodium [Senokot-S] 2 tablet PO BID tablet 11/20/18 Venlafaxine XR [Effexor Xr] 150 mg PO DAILY capsule 11/20/18 buPROPion XL [Wellbutrin Xl] 150 mg PO DAILY tablet.xl 11/20/18 Primary Care Physician: Marisol Casas DO [Primary Care Provider] - Test Results: Test results from this visit will be discussed in further detail at your follow- up appointment, if applicable. Please Follow Up With: AL PadillaC Please Follow Up With: Dr. Marisol Casas Please Follow Up With: [facility] - Physical and Speech Therapy When: They will call to set up an appointment to come to your home Proposed Discharge Date: 11/21/18
--- NOTE | 2018-11-20 13:14 | PCM.RU.DC ---
Rehab Discharge Summary DATE OF ADMISSION: 11/02/18 DATE OF DISCHARGE: 11/21/2018 - Rehab Diagnosis Debility secondary to Acute right pontine infarct Subjective: Patient aware of discharge home with therapy on Friday11/21/18 and voiced she is ready to go home. Denies further questions or concerns. - Physical Exam General: Alert, Oriented x3, Cooperative HEENT: Atraumatic, PERRLA Oral: Moist Mucosa Neck: Supple, No JVD Lungs: Clear to auscultation, Normal air movement Cardiovascular: Regular rate, Regular Rhythm Abdomen: Bowel Sounds Present, Soft, Non Tender Extremities: No clubbing, No cyanosis, No edema Musculoskeletal: No Tenderness to Palpation of Joints or Extremities Neurological: - - Deep Tendon Reflexes 2+/4 and Symmetrical, Cranial nerves II-XII intact,except for increased movement to lateral rotate right eye, but minimal to medial rotate right eye. Left upper extremity pronator drift, strength 3/5. Right extremities strength 4/5 Psych/Mental Status: Normal Affect, Appropriate, Alert and oriented to time, place, person, mood and affect Vital Signs Temp Pulse Resp BP Pulse Ox 98.1 F 72 18 126/75 H 95 11/20/18 07:33 11/20/18 07:33 11/20/18 07:33 11/20/18 07:33 11/20/18 07:33 Oxygen Delivery Method Room Air Weight: 80.7 kg Body Mass Index (BMI) 26.8 Finger Stick Blood Glucose 122 Intake and Output for Last 24 Hours 11/18/18 11/19/18 11/20/18 23:59 23:59 23:59 Intake Total 360 / 360 Balance 360 / 360 Discharge Diet: Low fat/ Low Cholesterol, - - mechanical soft, nectar thickend liquids Discharge Activity: Return to Normal Activity, May Not Drive, May Shower, Use Walker Weight Bearing Status: Weight bearing as tolerated Call your doctor if you observe: Fever of 101 or Higher, Coldness, Increased Pain, Numbness or Tingling, Change in Color, Inability to urinate, Inability to have a bowel movement, Shortness of breath, Dizziness, Fainting spells, Swelling in the ankles, Chest pain, Prolonged hiccoughing, Increased palpitations (irregular heartbeat), Calf discomfort, Uncontrolled pain Home Medications: Medications to take at Discharge ALPRAZolam [Xanax] 0.25 mg PO QHS tablet 11/20/18 Acetaminophen [Tylenol] 1,000 mg PO Q8H PRN PRN tablet 11/20/18 Apixaban [Eliquis] 5 mg PO BID tablet 11/20/18 Aspirin [Aspirin, Baby] 81 mg PO DAILY@0800 tab.chew 11/20/18 Levothyroxine [Synthroid] 75 mcg PO DAILY@0600 tablet 11/20/18 Lisinopril [Zestril] 20 mg PO DAILY tablet 11/20/18 Melatonin 10 mg PO QHS tablet 11/20/18 Potassium Chloride [K-Dur] 10 meq PO DAILY tablet 11/20/18 Senna/Docusate Sodium [Senokot-S] 2 tablet PO BID tablet 11/20/18 Venlafaxine XR [Effexor Xr] 150 mg PO DAILY capsule 11/20/18 buPROPion XL [Wellbutrin Xl] 150 mg PO DAILY tablet.xl 11/20/18 Primary Care Physician: Marisol Casas DO [Primary Care Provider] - Please Follow Up With: AL PadillaC Please Follow Up With: Dr. Marisol Casas Please Follow Up With: [facility] - Physical and Speech Therapy When: They will call to set up an appointment to come to your home Please Follow Up With: Computational Sciences Professor Additional Instructions: Hand written prescription for Eliquis provided. Disposition: Home with Home Health Patient Condition:: Stable Rehab Course ]The patient is a 78 year old female with PMH CAD, HTN, hyperlipidemia, hypothyroidism, anxiety/depression and chronic severe ataxia with hx of prior brain tumor s/p radiation and prior left pontine infarct admitted to [facility] on 11/02/2018 with debility status post acute right pontine infarct for greater than 3 hours of therapy daily with a goal of return back home at or near her prior level of functional independence. Patient presents to the [facility] ED on 10/31/18 with history of onset at 9:00 pm the evening prior, increased balance difficulties above baseline as well as vision changes w/ blurred and double vision with both eyes open and inability to medial rotate her R eye. She also had nausea, severely worsened debility with vision changes. NIH was 2 and was not a TPA candidate. On CTA of head w/wo contrast atherosclerotic calcifications at right carotid bulb and the proximal segment of the left vertebral artery with mild luminal narrowing; CT of brain without contrast showed chronic involutional changes; EKG NSR, Right BBB with no change from prior EKG in May,; CXR with no acute pathology. On 11/01/2018 CT and MRI of brain w/wo contrast showed tiny acute pontine infarct. On 11/02/2018 echocardiogram done with EF of 55-60%. Patient lives with spouse and is wheel chair bound and modified independence with all pivot transfers and ADLs, except has assist with showering and tub/shower transfers. Aspiration precautions and was on mechanical soft, nectar thickened liquids at home. Rehab course uncomplicated. Patient has increased in strength and mobility and is able to ambulate with walker. Patient has decreased blurred vision to right eye without blurred vision. 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 Discussed with cardiology Dr. Jones regarding patient's history of A. fib and further need for anticoagulation, since she has h/o Afib post cardiac procedure in the past, and has had recurrent strokes in 2016, 2017 and again this time in 2019, patient might benefit from AC with Devaughn. Dr. Jones in agreement. Stop Plavix and Lovenox. Patient will continue to follow mechanical soft diet with nectar thickened liquids and will be discharged home on 11/21/18 with home therapy. patient to F/U with PCP, neurology and foreign food specialty cook. Meaningful Use Info Meaningful Use Diagnoses (Choose all that apply): Ischemic CVA - CVA Therapy Assessed for PT,OT and/or ST?: Yes - Ischemic Stroke Antithrombotic order at d/c?: Yes Dx of Atrial fib/flutter?: No Anticoagulant at discharge?: Yes Statins at discharge?: No Reason Statin not ordered: Drug Allergy Primary Dx Acute Ischemic CVA?: Yes IV tPA ordered during stay?: No Reason IV t-PA not ordered: Treatment not Indicated
--- NOTE | 2018-11-20 13:19 | DS.PCM_ITS ---
Rehab Discharge Summary DATE OF ADMISSION: 11/02/18 DATE OF DISCHARGE: 11/21/2018 - Rehab Diagnosis Debility secondary to Acute right pontine infarct Subjective: Patient aware of discharge home with therapy on Friday11/21/18 and voiced she is ready to go home. Denies further questions or concerns. - Physical Exam General: Alert, Oriented x3, Cooperative HEENT: Atraumatic, PERRLA Oral: Moist Mucosa Neck: Supple, No JVD Lungs: Clear to auscultation, Normal air movement Cardiovascular: Regular rate, Regular Rhythm Abdomen: Bowel Sounds Present, Soft, Non Tender Extremities: No clubbing, No cyanosis, No edema Musculoskeletal: No Tenderness to Palpation of Joints or Extremities Neurological: - - Deep Tendon Reflexes 2+/4 and Symmetrical, Cranial nerves II- XII intact,except for increased movement to lateral rotate right eye, but minimal to medial rotate right eye. Left upper extremity pronator drift, strength 3/5. Right extremities strength 4/5 Psych/Mental Status: Normal Affect, Appropriate, Alert and oriented to time, place, person, mood and affect Vital Signs Temp Pulse Resp BP Pulse Ox 98.1 F 72 18 126/75 H 95 11/20/18 07:33 11/20/18 07:33 11/20/18 07:33 11/20/18 07:33 11/20/18 07:33 Oxygen Delivery Method Room Air Weight: 80.7 kg Body Mass Index (BMI) 26.8 Finger Stick Blood Glucose 122 Intake and Output for Last 24 Hours 11/18/18 11/19/18 11/20/18 23:59 23:59 23:59 Intake Total 360 / 360 Balance 360 / 360 Discharge Diet: Low fat/ Low Cholesterol, - - mechanical soft, nectar thickend liquids Discharge Activity: Return to Normal Activity, May Not Drive, May Shower, Use Walker Weight Bearing Status: Weight bearing as tolerated Call your doctor if you observe: Fever of 101 or Higher, Coldness, Increased Pain, Numbness or Tingling, Change in Color, Inability to urinate, Inability to have a bowel movement, Shortness of breath, Dizziness, Fainting spells, Swelling in the ankles, Chest pain, Prolonged hiccoughing, Increased palpitations (irregular heartbeat), Calf discomfort, Uncontrolled pain Home Medications: Medications to take at Discharge ALPRAZolam [Xanax] 0.25 mg PO QHS tablet 11/20/18 Acetaminophen [Tylenol] 1,000 mg PO Q8H PRN PRN tablet 11/20/18 Apixaban [Eliquis] 5 mg PO BID tablet 11/20/18 Aspirin [Aspirin, Baby] 81 mg PO DAILY@0800 tab.chew 11/20/18 Levothyroxine [Synthroid] 75 mcg PO DAILY@0600 tablet 11/20/18 Lisinopril [Zestril] 20 mg PO DAILY tablet 11/20/18 Melatonin 10 mg PO QHS tablet 11/20/18 Potassium Chloride [K-Dur] 10 meq PO DAILY tablet 11/20/18 Senna/Docusate Sodium [Senokot-S] 2 tablet PO BID tablet 11/20/18 Venlafaxine XR [Effexor Xr] 150 mg PO DAILY capsule 11/20/18 buPROPion XL [Wellbutrin Xl] 150 mg PO DAILY tablet.xl 11/20/18 Primary Care Physician: Marisol Casas DO [Primary Care Provider] - Please Follow Up With: AL PadillaC Please Follow Up With: Dr. Marisol Casas Please Follow Up With: [facility] - Physical and Speech Therapy When: They will call to set up an appointment to come to your home Please Follow Up With: Pipe Insulator Additional Instructions: Hand written prescription for Eliquis provided. Disposition: Home with Home Health Patient Condition:: Stable Rehab Course ]The patient is a 78 year old female with PMH CAD, HTN, hyperlipidemia, hypot hyroidism, anxiety/depression and chronic severe ataxia with hx of prior brain tumor s/p radiation and prior left pontine infarct admitted to [facility] on 11/02/2018 with debility status post acute right pontine infarct for greater than 3 hours of therapy daily with a goal of return back home at or near her prior level of functional independence. Patient presents to the [facility] ED on 10/31/18 with history of onset at 9:00 pm the evening prior, increased balance difficulties above baseline as well as vision changes w/ blurred and double vision with both eyes open and inability to medial rotate her R eye. She also had nausea, severely worsened debility with vision changes. NIH was 2 and was not a TPA candidate. On CTA of head w/wo contrast atherosclerotic calcifications at right carotid bulb and the proximal segment of the left vertebral artery with mild luminal narrowing; CT of brain without contrast showed chronic involutional changes; EKG NSR, Right BBB with no change from prior EKG in May,; CXR with no acute pathology. On 11/01/2018 CT and MRI of brain w/wo contrast showed tiny acute pontine infarct. On 11/02/2018 echocardiogram done with EF of 55-60%. Patient lives with spouse and is wheel chair bound and modified independence with all pivot transfers and ADLs, except has assist with showering and tub/sh ower transfers. Aspiration precautions and was on mechanical soft, nectar thickened liquids at home. Rehab course uncomplicated. Patient has increased in strength and mobility and is able to ambulate with walker. Patient has decreased blurred vision to right eye without blurred vision. 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 Discussed with cardiology Dr. Jones regarding patient's history of A. fib and further need for anticoagulation, since she has h/o Afib post cardiac procedure in the past, and has had recurrent strokes in 2016, 2017 and again this time in 2019, patient might benefit from AC with Devaughn. Dr. Jones in agreement. Stop Plavix and Lovenox. Patient will continue to follow mechanical soft diet with nectar thickened liquids and will be discharged home on 11/21/18 with home therapy. patient to F/U with PCP, neurology and project control manager. Meaningful Use Info Meaningful Use Diagnoses (Choose all that apply): Ischemic CVA - CVA Therapy Assessed for PT,OT and/or ST?: Yes - Ischemic Stroke Antithrombotic order at d/c?: Yes Dx of Atrial fib/flutter?: No Anticoagulant at discharge?: Yes Statins at discharge?: No Reason Statin not ordered: Drug Allergy Primary Dx Acute Ischemic CVA?: Yes IV tPA ordered during stay?: No Reason IV t-PA not ordered: Treatment not Indicated
--- NOTE | 2018-11-20 13:35 | CASEMGMT ---
Social Work SW spoke with Anastasia Barksdale Actuarial Mathematician who states referral has previously been made for a emergency response system and mom's meals. Hawa states she has spoke with pt daughter to discuss other services and is requesting COMPRESSOR OPERATOR ADJUSTER be added to Skilled services and she does not yet have aid coverage for pt. Call to Kaylee at [facility] and COMPRESSOR OPERATOR ADJUSTER added. NADIYA Nelson
[2018-11-20 14:53] VITALS: BMI 26.8
[2018-11-20 19:47] VITALS: BP 156/94; PULSE 74; RESP 14; TEMP 36.8; O2SAT 93
[2018-11-20] MEDS: ALPRAZolam 0.25 MG Tablet PO (21:05)
[2018-11-20] MEDS: MELATONIN 10 MG TABLET PO (21:05)
--- NOTE | 2018-11-21 00:23 | NURSING ---
Reviewed and agree with LPNs fims and handoff
[2018-11-21] MEDS: Levothyroxine 75 MCG Tablet PO (05:54)
[2018-11-21 07:00] VITALS: BP 130/78; PULSE 69; RESP 16; TEMP 36.7; O2SAT 94
[2018-11-21] MEDS: Aspirin 81 MG TAB.CHEW PO (07:42)
[2018-11-21] MEDS: Venlafaxine XR 150 MG Capsule PO (07:43)
[2018-11-21] MEDS: APIXABAN 5 MG TABLET PO (07:43)
[2018-11-21] MEDS: Lisinopril 20 MG Tablet PO (07:44)
[2018-11-21] MEDS: buPROPion (XL) 150 MG TABLET.XL PO (07:44)
[2018-11-21 11:00] VITALS: BP 130/78; PULSE 69; RESP 16; TEMP 36.7; O2SAT 94; BMI 26.8
--- NOTE | 2018-11-21 11:00 | NURSING ---
Discharged to home and patient and daughter verbalized understanding.
== END 2018-11-21 11:00 | disposition home health service (06) | DRG 57 ==
PROVIDERS: Internal Medicine; Nurse Practitioner Family; Admitting Provider Psychiatry & Neurology Neurology; Family Provider Internal Medicine; PCP Internal Medicine; Visit Provider Hospitalist
DX: I69.393 Ataxia following cerebral infarction (principal); I69.354 Hemiplegia and hemiparesis following cerebral infarction affecting left non-dominant side; I69.398 Other sequelae of cerebral infarction; H53.2 Diplopia; I25.10 Atherosclerotic heart disease of native coronary artery without angina pectoris; I48.0 Paroxysmal atrial fibrillation; I10 Essential (primary) hypertension; E78.5 Hyperlipidemia, unspecified; E03.9 Hypothyroidism, unspecified; Z95.1 Presence of aortocoronary bypass graft; Z86.03 Personal history of neoplasm of uncertain behavior; Z92.3 Personal history of irradiation; I45.10 Unspecified right bundle-branch block; Z99.3 Dependence on wheelchair; H51.21 Internuclear ophthalmoplegia, right eye; R29.810 Facial weakness; F41.8 Other specified anxiety disorders
CPT/HCPCS: 36415; 80048; 81001; 83735; 85025; 85027; 87086; 87088; 92507; 92523; 92526; 92610; 97110; 97112; 97116; 97162; 97166; 97530; 97535

== ENCOUNTER 2018-12-08 12:39 | Observation (INO) | payer MEDICARE, OTHER, SELFPAY ==
[2018-12-08] VITALS (16 sets, daily range): BP systolic 131–167; BP diastolic 77–102; PULSE 70–85; RESP 16–22; TEMP 36.4–37.2; O2SAT 93–96; BMI 26.7; BMI 27.7; BMI 27.8
--- NOTE | 2018-12-08 12:50 | EKG12_ITS ---
Test Reason : HEAD INJURY Blood Pressure : / mmHG Vent. Rate : 083 BPM Atrial Rate : 083 BPM P-R Int : 158 ms QRS Dur : 126 ms QT Int : 378 ms P-R-T Axes : 037 -14 002 degrees QTc Int : 444 ms Normal sinus rhythm Right bundle branch block Inferior infarct , age undetermined Abnormal ECG Confirmed by VINCENT HONEYCUTT ([id number]), material expeditor RONNIE CAVAZOS ([id number]) on 12/11/2018 6:16:16 AM Referred By: Pawan Sellers Confirmed By:VINCENT HONEYCUTT
--- NOTE | 2018-12-08 12:50 | CT_ITS ---
STUDY: CT BRAIN WITHOUT CONTRAST REASON FOR EXAM: Female, 78 years old. Slurred speech. Head injury. Patient is on anticoagulants. RADIATION DOSAGE (If Supplied By Facility): CTDIvol = ( 44.99 ) mGy, DLP = ( 812.98 ) mGycm TECHNIQUE: Transaxial CT imaging of the brain was performed without administration of intravenous contrast material. Individualized dose optimization techniques were used for this CT. COMPARISON: Comparison is made with prior study October 31, 2018. FINDINGS: Normal soft tissue structures. Normal calvarium. There is mild cerebral atrophy with widening of the extra-axial spaces and ventricular dilatation. There are areas of decreased attenuation within the white matter tracts of the supratentorial brain, consistent with microvascular disease changes. Normal basal ganglia and thalami. Normal brainstem. There is mild cerebellar atrophy. There is no intracranial hemorrhage. There are no findings of an acute ischemic infarction. Atherosclerotic calcification of the cavernous portions of the internal carotid arteries bilaterally. Normal visualized paranasal sinuses. CT/Brain/Head without Contrast IMPRESSION: Chronic involutional changes of the brain. Electronically Signed: Panfilo Gonsalves, at 13:51 EDT , Service support ,
--- NOTE | 2018-12-08 12:50 | RAD_ITS ---
STUDY: X-RAY CHEST REASON FOR EXAM: Female, 78 years old. Shortness of breath. History of fall and head injury. TECHNIQUE: Single AP portable view of the chest. COMPARISON: Comparison is made with prior study dated October 31, 2018. FINDINGS: EKG electrodes are seen. Mild elevation of the right hemidiaphragm. The lungs are clear. There is no demonstrated pleural abnormality. Sternal cerclage wires and vascular clips are present from a prior sternotomy and coronary artery bypass graft procedure (CABG). Normal mediastinum and valerie. Normal visualized pulmonary arteries. There is atherosclerotic tortuosity of the aortic arch and descending thoracic aorta. Normal visualized thoracic spine. Normal visualized ribs, clavicles, and shoulders. There is no demonstrated abnormality of the visualized soft tissue structures of the upper abdomen. RAD/Chest 1 View IMPRESSION: No acute abnormality is seen. Electronically Signed: Panfilo Gonsalves, at 13:53 EDT , Service support ,
[2018-12-08 13:08] LABS: Absolute Lymphocyte Count 1.35 X10^3/ul (0.83-4.51); Basophil# 0.02 X10^3/uL; Basophil% 0.3 % (0-1); Eosinophil# 0.17 X10^3/uL; Eosinophils% 2.7 % (0-5); Hematocrit 42.2 % (37-47); Hemoglobin 14.1 g/dl (12.0-15.0); Lymphocyte # 1.35 X10^3/ul (4.0); Lymphocyte % 21.5 % (19-41); Mean Corp Hgb Conc 33.4 g/gl (32-36); Mean Corpuscular Hgb 31.9 pg (27.0-32.0); Mean Corpuscular Volume 95.5 fL (81-99); Monocyte% 11.1 % (0-10); Neutrophil # 4.04 X10^3/uL (2.7-7.7); Neutrophil % 64.4 % (47-70); Platelet Count 301 K/mm3 (150-450); RBC Distribution Width CV 13.4 % (11.6-14.6); RBC Distribution Width SD 46.8 fl (35.1-43.9); Red Blood Count 4.42 M/mm3 (4.2-5.4); White Blood Count 6.3 K/mm3 (4.4-11.0)
[2018-12-08 13:10] LABS: POSITIVE COUNT NO; POSITIVE DIFFERENTIAL NO; POSITIVE MORPHOLOGY NO
--- NOTE | 2018-12-08 13:11 | ED.VIS.STROK ---
History of Present Illness Chief Complaint: Head Injury Informant: Patient, Family Onset: Today - Today slid from chair striking the back of her head, Days - Slurred speech noted by daughter 2 to 3 days ago Context: Onset with activity, Sudden Onset Timing: Continuous - Speech has been persistent since onset Quality and Location: Left Facial Droop - Chronic per patient and daughter, Slurred Speech - You for the past 2 to 3 days, Difficulty with Ambulation - Chronic per patient and daughter Onset: Read quality and location Current Severity: Mild Maximum Severity: Mild Worsened by: Nothing Relieved by: Nothing Associated Symptoms: Headache, Nausea. Negative for: Vomiting, Chest Pain Narrative: Patient is an elderly woman who presents because of head trauma status post fall. She is on anticoagulant, Eliquis. Daughter also noted slurred speech that started 2 to 3 days ago. She denies trouble with her vision. She does have difficulty ambulating with weakness from prior stroke. Prior similar symptoms: Yes Recent Illness/Hospitalization: Yes - Past Medical History (1) CVA (cerebral vascular accident) Status: Acute (2) Internuclear ophthalmoplegia of right eye Status: Acute (3) Atherosclerotic heart disease of [place] coronary artery without angina pectoris Status: Chronic Comment: CABG X 2 CAN-LAD, SVG-CX 06/11/2014 @ [facility] per Dr. Sutton (4) Depression Status: Chronic (5) Diabetes mellitus Status: Chronic (6) Hyperlipidemia Status: Chronic (7) Hypertension Status: Chronic (8) Hypothyroidism Status: Chronic (9) Right bundle branch block Status: Chronic (10) S/P CABG x 2 Status: Chronic Comment: CABG X 2 CAN-LAD, SVG-CX @ [facility] per Dr. Sutton (11) Sleep apnea Status: Chronic (12) Stenosis of right carotid artery Status: Chronic Past Medical History - Allergies and Home Meds Allergies/Adverse Reactions: Allergies atorvastatin Allergy (Verified 12/08/18 12:42) Other muscle weakness codeine Allergy (Verified 12/08/18 12:42) Unknown levofloxacin [From Levaquin] Allergy (Verified 12/08/18 12:42) Pain in joints Penicillins Allergy (Verified 12/08/18 12:42) Swelling tongue swells and hives pravastatin Allergy (Verified 12/08/18 12:42) myalgia Sulfa (Sulfonamide Antibiotics) Allergy (Verified 12/08/18 12:42) Swelling tongue swell and hives Primary Care Physician: Marisol Casas DO [Primary Care Provider] - Prior records reviewed: Yes Surgical History: arthroscopy, knee, - - CABG x 2, PCI prior, ankle surgery, renal surgery, TKR. Lives: With Family Smoking Status: Never smoker Alcohol: None - Family History Maternal Family History: Family History (Last Reviewed 12/07/18 @ 08:58 by Pastora Weber) Father Heart disease Sister Cancer Uncle CAD (coronary artery disease) Family History: Reports: Stroke Paternal Family History: Family History (Last Reviewed 12/07/18 @ 08:58 by Pastora Weber) Father Heart disease Sister Cancer Uncle CAD (coronary artery disease) Family History: Reports: Heart Disease Sibling Family History: Family History (Last Reviewed 12/07/18 @ 08:58 by Pastora Weber) Father Heart disease Sister Cancer Uncle CAD (coronary artery disease) Family History: Reports: Cancer Review of Systems General: Denies: Chills, Fever, Sweats Eyes: Denies: Visual changes - bilaterally, Blurred Vision - bilaterally, Diplopia ENT: Denies: Rhinorrhea, Sore throat Cardiovascular: Denies: Chest pain, Palpitations Respiratory: Denies: Dyspnea, Cough, Dyspnea on exertion Gastrointestinal: Denies: Abdominal pain, Nausea, Vomiting, Diarrhea, Melena, Hematochezia Genitourinary: Denies: Dysuria, Hematuria, Frequency Musculoskeletal: Denies: Myalgias, Arthralgias, Neck pain, Back pain, Swelling, Extremity Pain Skin: Denies: Rash, Wounds Neurological: Reports: Headache - Headache sick secondary to head trauma, Weakness, Parasthesia, Numbness Endocrine: Denies: Polyuria, Polydipsia Hematologic: Reports: Easy bruising. Denies: Easy bleeding Allergy: Denies: Uticaria, Swelling of the mouth Physical Exam Vital Signs/Narrative: Vital Signs Temp Pulse Resp BP Pulse Ox 12/08/18 12:40 97.6 F L 80 16 132/78 H 94 Inital Vital Signs reviewed: Yes - NIH Stroke Scale 1a Level of Consciousness: 0 1b LOC Questions (Score 2 if aphasic/stupor): 0 1c LOC Commands (Only score 1st attempt): 0 2 Best Gaze (If aphasic, use reflexive mvmts.): 1 - Abnormal eye movement right secondary to prior stroke 3 Visual: 0 4 Facial Palsy: 1 - Per prior stroke 5 Motor Arm Right (UN = amputation/fusion): 0 5 Motor Arm Left: 0 6 Motor Leg Right: 0 6 Motor Leg Left: 0 7 Limb ataxia (Only + if out of proportion): 0 8 Sensory (Aphasia/stupor=0 or 1, coma=2): 1 9 Best Language: 0 10 Dysarthria (mute, coma=2, intubated=UN): 1 11 Extinction and Inattention (only scored if +): 0 Total Score: 4 General: Well nourished, Well developed Head: Normocephalic, Atraumatic, Tenderness - Over the occiput is no palpable depression. Is no clinical signs of basal skull fracture. Eyes: Pale conjunctiva. Negative for: Perrl, EOMI, Scleral icterus ENT: Moist mucous membranes, No rhinorrhea, TM's clear Neck: Supple, Nontender, No lymphadenopathy, No JVD Cardiovascular: Regular rate, Regular rhythm, No murmurs, Normal S1, Normal S2 Respiratory: No distress, CTA bilaterally, Chest nontender Abdomen: Soft, Nontender, Nondistended, Normal bowel sounds, No masses Rectal: Deferred Back: Nontender, Normal Inspection Extremities: Nontender, No edema Skin: Normal color, No rash, No Trauma. Negative for: Cyanosis, Diaphoresis, Jaundice Neurological: Alert, Oriented x3, Normal Strength. Negative for: Cranial nerves II-XII grossly intact, Normal Sensation, Normal Gait Psychological: Normal affect Diagnostic/Tx/Re-eval Impressions Brain CT 12/08/18 12:50 IMPRESSION: Chronic involutional changes of the brain. Electronically Signed: Panfilo Gonsalves, at 13:51 EDT , Service support , Chest X-Ray 12/08/18 12:50 IMPRESSION: No acute abnormality is seen. Electronically Signed: Panfilo Gonsalves, at 13:53 EDT , Service support , 12/08/18 12:50 Brain/Head without Contrast [CT] Stat Chest 1 View [RAD] Stat Laboratory Results 12/08/18 12/08/18 12/08/18 13:01 13:01 13:01 WBC 6.3 RBC 4.42 Hgb 14.1 Hct 42.2 MCV 95.5 MCH 31.9 MCHC 33.4 RDW 13.4 RDW Differential 46.8 H Plt Count 301 MPV 9.0 Immature Gran % (Auto) 0.000 Neut % (Auto) 64.4 Lymph % (Auto) 21.5 [place] % (Auto) 11.1 H Eos % (Auto) 2.7 Baso % (Auto) 0.3 Absolute Neuts (auto) 4.0 Absolute Lymphs (auto) 1.35 Total Counted Not Reportable PT 14.5 INR 1.2 APTT 31.1 Sodium 140 Potassium 3.8 Chloride 105 Carbon Dioxide 29.0 Anion Gap 6 BUN 11 Creatinine 0.81 Estim Creat Clear Calc 55.66 Est GFR (MDRD) Af Amer 88 Est GFR (MDRD) Non-Af 73 BUN/Creatinine Ratio 13.6 Glucose 111 H Calcium 8.7 Troponin I < 0.015 POC Glucose 12/08/18 13:16 WBC RBC Hgb Hct MCV MCH MCHC RDW RDW Differential Plt Count MPV Immature Gran % (Auto) Neut % (Auto) Lymph % (Auto) [place] % (Auto) Eos % (Auto) Baso % (Auto) Absolute Neuts (auto) Absolute Lymphs (auto) Total Counted PT INR APTT Sodium Potassium Chloride Carbon Dioxide Anion Gap BUN Creatinine Estim Creat Clear Calc Est GFR (MDRD) Af Amer Est GFR (MDRD) Non-Af BUN/Creatinine Ratio Glucose Calcium Troponin I POC Glucose 129 H - Rhythm Strip Rhythm Strip: Sinus Rhythm Rate: 87 - QRS complexes widened Ectopy: None - EKG Initial EKG Interpretation: Sinus Rhythm - Ventricular rate is 83. MN interval is 158 ms. QRS duration is 126 ms and consistent with right bundle branch block. No acute ischemic changes noted. Prior: Unchanged - Medical Decision Making Stroke Team Activated: No - Onset unknown and patient on anticoagulant Suspect patient had a CVA affecting her speech to 3 days ago. Because of recent head trauma with headache and the fact that she is on anticoagulants CT of the head without contrast was ordered to evaluate for intracranial bleed. If there is no evidence intracranial bleed patient will need potential admission for further testing of stroke. Will discuss with neurologist who over saw her care last admission. Patient and all likely had another stroke. Prior records reviewed. Neurology either was not consulted or if they did not see her. Since no one from neurology saw her hospitalist was paged for 23 observation and further testing. ED Disposition - Plan for ED Patient: Disposition: Acute Care Hospital [facility] Diagnosis: CVA (cerebral vascular accident), Closed head injury, [employer] current use of anticoagulant Referrals: Marisol Casas DO [Primary Care Provider] -
--- NOTE | 2018-12-08 13:15 | ED.DCSUM_ITS ---
History of Present Illness Chief Complaint: Head Injury Informant: Patient, Family Onset: Today - Today slid from chair striking the back of her head, Days - Slurred speech noted by daughter 2 to 3 days ago Context: Onset with activity, Sudden Onset Timing: Continuous - Speech has been persistent since onset Quality and Location: Left Facial Droop - Chronic per patient and daughter, Slurred Speech - You for the past 2 to 3 days, Difficulty with Ambulation - Chronic per patient and daughter Onset: Read quality and location Current Severity: Mild Maximum Severity: Mild Worsened by: Nothing Relieved by: Nothing Associated Symptoms: Headache, Nausea. Negative for: Vomiting, Chest Pain Narrative: Patient is an elderly woman who presents because of head trauma status post fall. She is on anticoagulant, Eliquis. Daughter also noted slurred speech that started 2 to 3 days ago. She denies trouble with her vision. She does have difficulty ambulating with weakness from prior stroke. 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 Sutton (4) Depression Status: Chronic (5) Diabetes mellitus Status: Chronic (6) Hyperlipidemia Status: Chronic (7) Hypertension Status: Chronic (8) Hypothyroidism Status: Chronic (9) Right bundle branch block Status: Chronic (10) S/P CABG x 2 Status: Chronic Comment: CABG X 2 CAN-LAD, SVG-CX @ [facility] per Dr. Sutton (11) Sleep apnea Status: Chronic (12) Stenosis of right carotid artery Status: Chronic Past Medical History - Allergies and Home Meds Allergies/Adverse Reactions: Allergies atorvastatin Allergy (Verified 12/08/18 12:42) Other muscle weakness codeine Allergy (Verified 12/08/18 12:42) Unknown levofloxacin [From Levaquin] Allergy (Verified 12/08/18 12:42) Pain in joints Penicillins Allergy (Verified 12/08/18 12:42) Swelling tongue swells and hives pravastatin Allergy (Verified 12/08/18 12:42) myalgia Sulfa (Sulfonamide Antibiotics) Allergy (Verified 12/08/18 12:42) Swelling tongue swell and hives Primary Care Physician: Marisol Casas DO [Primary Care Provider] - Prior records reviewed: Yes Surgical History: arthroscopy, knee, - - CABG x 2, PCI prior, ankle surgery, re nal surgery, TKR. Lives: With Family Smoking Status: Never smoker Alcohol: None - Family History Maternal Family History: Family History (Last Reviewed 12/07/18 @ 08:58 by Pastora Weber) Father Heart disease Sister Cancer Uncle CAD (coronary artery disease) Family History: Reports: Stroke Paternal Family History: Family History (Last Reviewed 12/07/18 @ 08:58 by Pastora Weber) Father Heart disease Sister Cancer Uncle CAD (coronary artery disease) Family History: Reports: Heart Disease Sibling Family History: Family History (Last Reviewed 12/07/18 @ 08:58 by Pastora Weber) Father Heart disease Sister Cancer Uncle CAD (coronary artery disease) Family History: Reports: Cancer Review of Systems General: Denies: Chills, Fever, Sweats Eyes: Denies: Visual changes - bilaterally, Blurred Vision - bilaterally, Diplopia ENT: Denies: Rhinorrhea, Sore throat Cardiovascular: Denies: Chest pain, Palpitations Respiratory: Denies: Dyspnea, Cough, Dyspnea on exertion Gastrointestinal: Denies: Abdominal pain, Nausea, Vomiting, Diarrhea, Melena, Hematochezia Genitourinary: Denies: Dysuria, Hematuria, Frequency Musculoskeletal: Denies: Myalgias, Arthralgias, Neck pain, Back pain, Swelling, Extremity Pain Skin: Denies: Rash, Wounds Neurological: Reports: Headache - Headache sick secondary to head trauma, Weakness, Parasthesia, Numbness Endocrine: Denies: Polyuria, Polydipsia Hematologic: Reports: Easy bruising. Denies: Easy bleeding Allergy: Denies: Uticaria, Swelling of the mouth Physical Exam Vital Signs/Narrative: Vital Signs Temp Pulse Resp BP Pulse Ox 12/08/18 12:40 97.6 F L 80 16 132/78 H 94 Inital Vital Signs reviewed: Yes - NIH Stroke Scale 1a Level of Consciousness: 0 1b LOC Questions (Score 2 if aphasic/stupor): 0 1c LOC Commands (Only score 1st attempt): 0 2 Best Gaze (If aphasic, use reflexive mvmts.): 1 - Abnormal eye movement right secondary to prior stroke 3 Visual: 0 4 Facial Palsy: 1 - Per prior stroke 5 Motor Arm Right (UN = amputation/fusion): 0 5 Motor Arm Left: 0 6 Motor Leg Right: 0 6 Motor Leg Left: 0 7 Limb ataxia (Only + if out of proportion): 0 8 Sensory (Aphasia/stupor=0 or 1, coma=2): 1 9 Best Language: 0 10 Dysarthria (mute, coma=2, intubated=UN): 1 11 Extinction and Inattention (only scored if +): 0 Total Score: 4 General: Well nourished, Well developed Head: Normocephalic, Atraumatic, Tenderness - Over the occiput is no palpable depression. Is no clinical signs of basal skull fracture. Eyes: Pale conjunctiva. Negative for: Perrl, EOMI, Scleral icterus ENT: Moist mucous membranes, No rhinorrhea, TM's clear Neck: Supple, Nontender, No lymphadenopathy, No JVD Cardiovascular: Regular rate, Regular rhythm, No murmurs, Normal S1, Normal S2 Respiratory: No distress, CTA bilaterally, Chest nontender Abdomen: Soft, Nontender, Nondistended, Normal bowel sounds, No masses Rectal: Deferred Back: Nontender, Normal Inspection Extremities: Nontender, No edema Skin: Normal color, No rash, No Trauma. Negative for: Cyanosis, Diaphoresis, Jaundice Neurological: Alert, Oriented x3, Normal Strength. Negative for: Cranial nerves II-XII grossly intact, Normal Sensation, Normal Gait Psychological: Normal affect Diagnostic/Tx/Re-eval Impressions Brain CT 12/08/18 12:50 IMPRESSION: Chronic involutional changes of the brain. Electronically Signed: Panfilo Gonsalves, at 13:51 EDT , Service support , Chest X-Ray 12/08/18 12:50 IMPRESSION: No acute abnormality is seen. Electronically Signed: Panfilo Gonsalves, at 13:53 EDT , Service support , 12/08/18 12:50 Brain/Head without Contrast [CT] Stat Chest 1 View [RAD] Stat Laboratory Results 12/08/18 12/08/18 12/08/18 13:01 13:01 13:01 WBC 6.3 RBC 4.42 Hgb 14.1 Hct 42.2 MCV 95.5 MCH 31.9 MCHC 33.4 RDW 13.4 RDW Differential 46.8 H Plt Count 301 MPV 9.0 Immature Gran % (Auto) 0.000 Neut % (Auto) 64.4 Lymph % (Auto) 21.5 [place] % (Auto) 11.1 H Eos % (Auto) 2.7 Baso % (Auto) 0.3 Absolute Neuts (auto) 4.0 Absolute Lymphs (auto) 1.35 Total Counted Not Reportable PT 14.5 INR 1.2 APTT 31.1 Sodium 140 Potassium 3.8 Chloride 105 Carbon Dioxide 29.0 Anion Gap 6 BUN 11 Creatinine 0.81 Estim Creat Clear Calc 55.66 Est GFR (MDRD) Af Amer 88 Est GFR (MDRD) Non-Af 73 BUN/Creatinine Ratio 13.6 Glucose 111 H Calcium 8.7 Troponin I < 0.015 POC Glucose 12/08/18 13:16 WBC RBC Hgb Hct MCV MCH MCHC RDW RDW Differential Plt Count MPV Immature Gran % (Auto) Neut % (Auto) Lymph % (Auto) [place] % (Auto) Eos % (Auto) Baso % (Auto) Absolute Neuts (auto) Absolute Lymphs (auto) Total Counted PT INR APTT Sodium Potassium Chloride Carbon Dioxide Anion Gap BUN Creatinine Estim Creat Clear Calc Est GFR (MDRD) Af Amer Est GFR (MDRD) Non-Af BUN/Creatinine Ratio Glucose Calcium Troponin I POC Glucose 129 H - Rhythm Strip Rhythm Strip: Sinus Rhythm Rate: 87 - QRS complexes widened Ectopy: None - EKG Initial EKG Interpretation: Sinus Rhythm - Ventricular rate is 83. DC interval is 158 ms. QRS duration is 126 ms and consistent with right bundle branch block. No acute ischemic changes noted. Prior: Unchanged - Medical Decision Making Stroke Team Activated: No - Onset unknown and patient on anticoagulant Suspect patient had a CVA affecting her speech to 3 days ago. Because of recent head trauma with headache and the fact that she is on anticoagulants CT of the head without contrast was ordered to evaluate for intracranial bleed. If there is no evidence intracranial bleed patient will need potential admission for further testing of stroke. Will discuss with neurologist who over saw her care last admission. Patient and all likely had another stroke. Prior records reviewed. Neurology either was not consulted or if they did not see her. Since no one from neurology saw her hospitalist was paged for 23 observation and further testing. ED Disposition - Plan for ED Patient: Disposition: Acute Care Hospital [facility] Diagnosis: CVA (cerebral vascular accident), Closed head injury, prison current use of anticoagulant Referrals: Marisol Casas DO [Primary Care Provider] -
[2018-12-08 13:22] LABS: International Normalized Ratio 1.2; Prothrombin Time (Protime)PT. 14.5 SECONDS (11.7-14.9)
[2018-12-08 13:23] LABS: Partial Thromboplast Time 31.1 Seconds (24.1-36.2)
[2018-12-08 13:25] LABS: Anion Gap 6 (5-15); BUN 11 mg/dL (7-18); BUN/Creat Ratio 13.6 RATIO (10-20); Calcium,Total 8.7 mg/dL (8.5-10.1); Chloride 105 mmol/L (98-107); Creatinine, Serum 0.81 mg/dL (0.55-1.02); EST Glomerular Filtration Rate 73 mL/min (>60); Est Glom Filt Rate - Afr Amer 88 mL/min (>60); Estimated Creatinine Clearance 55.66 ml/min; Glucose 111 mg/dL (74-106); Potassium 3.8 mmol/L (3.5-5.1); Sodium Level 140 mmol/L (136-145)
[2018-12-08 13:26] LABS: Bedside Glucose 129 mg/dL (70-110)
--- NOTE | 2018-12-08 14:59 | CON.PCM_ITS ---
Problem List (1) Fall Status: Chronic (2) Slurred speech Status: Acute Reason for Consult Date of Consultation: 12/08/18 Reason for Consultation: slurred speech and fall History of Present Illness: 78 year old F with PMH HTN, HLD, Neuropathy, H/O Stroke (right thalamic/left parietal in 2016, left pontine in 2017, right pontine stroke October 2018), CAD s/p stent, CABG, H/O Post cardiac procedure Afib in 2013, hypothyroidism, anxiety/depression, H/O cavernous angioma vs meningioma s/o radiation, fibromyalgia admitted with fall and slurred speech. Per daughter patient slid out of the chair today, denies any head injury, no loss of consciousness, has been having slurred speech for the past few days, denies any focal motor weakness or sensory loss. Was recently in the rehab unit in October 2018 with acute right pontine stroke and right INESSA, continues to have residual right INESSA. On Eliquis and is on aspirin due to history of CAD status post stent and CABG. Is allergic to statins. Lives with her , is essentially wheelchair- bound, has frequent falls, does not drive and does need help with her ADLs. CTA head/neck done on 10/31/2018 reported to show Atherosclerotic calcifications at the right carotid bulb and the proximal segment of the left vertebral artery with mild luminal narrowing, no hemodynamically significant stenosis of the left ICA or the right ICA. Past Medical History Past Medical History (Chronic Problems): Chronic Problems (Last Reviewed 12/07/18 @ 08:58 by Pastora Weber) Fall (Chronic) Anxiety (Chronic) Diabetes mellitus (Chronic) Sleep apnea (Chronic) Coronary artery disease (Chronic) Depression (Chronic) Stented coronary artery (Chronic 04/13/15) IVUS left main 06/07/2014, PCI-FAREED Prox & Mid LAD S/P CABG x 2 (Chronic 06/11/14) CABG X 2 CAN-LAD, SVG-CX @ [facility] per Dr. Sutton Atherosclerotic heart disease of [place] coronary artery without angina pectoris (Chronic) CABG X 2 CAN-LAD, SVG-CX 06/11/2014 @ [facility] per Dr. Sutton Stenosis of right carotid artery (Chronic) Right bundle branch block (Chronic) Hyperlipidemia (Chronic) Hypertension (Chronic) Hypothyroidism (Chronic) CVA (cerebral vascular accident) (Chronic 10/31/18) 10/31/18: MRI demonstrated tiny acute right pontine infarct 01/24/17:MRI demonstrated an acute infarct in the right thalamus and left parietal region Medical History: Medical History (Last Reviewed 12/07/18 @ 08:58 by Pastora Weber) Atherosclerotic heart disease of [place] coronary artery without angina pectoris (Chronic) I25.10 CABG X 2 CAN-LAD, SVG-CX 06/11/2014 @ [facility] per Dr. Sutton Stenosis of right carotid artery (Chronic) I65.21 Right bundle branch block (Chronic) I45.10 Hyperlipidemia (Chronic) E78.5 Hypertension (Chronic) I10 Hypothyroidism (Chronic) E03.9 CVA (cerebral vascular accident) (Chronic) Onset Date: 10/31/18 I63.9 10/31/18: MRI demonstrated tiny acute right pontine infarct 01/24/17:MRI demonstrated an acute infarct in the right thalamus and left parietal region Paroxysmal atrial fibrillation (Inactive) I48.0 patient had post op A-FIB (post CABG) in 2013 no further episodes Allergies atorvastatin Allergy (Verified 12/08/18 12:42) Other muscle weakness codeine Allergy (Verified 12/08/18 12:42) Unknown levofloxacin [From Levaquin] Allergy (Verified 12/08/18 12:42) Pain in joints Penicillins Allergy (Verified 12/08/18 12:42) Swelling tongue swells and hives pravastatin Allergy (Verified 12/08/18 12:42) myalgia Sulfa (Sulfonamide Antibiotics) Allergy (Verified 12/08/18 12:42) Swelling tongue swell and hives Home Medications: Ambulatory Orders Medication Instructions Recorded Acetaminophen [Tylenol] 1,000 mg PO Q8H PRN PRN tablet 11/20/18 Potassium Chloride [K-Dur] 10 meq PO DAILY tablet 11/20/18 Venlafaxine XR [Effexor Xr] 150 mg PO DAILY capsule 11/20/18 buPROPion XL [Wellbutrin Xl] 150 mg PO DAILY tablet.xl 11/20/18 ALPRAZolam [Xanax] 0.5 mg PO QHS 12/08/18 Apixaban [Eliquis] 5 mg PO BID 12/08/18 Aspirin [Aspirin, Baby] 81 mg PO DAILY@0800 12/08/18 Levothyroxine [Synthroid] 75 mcg PO DAILY@0600 12/08/18 Lisinopril [Zestril] 20 mg PO DAILY 12/08/18 Surgical History: Surgical History (Last Reviewed 12/07/18 @ 08:58 by Pastora Weber) Stented coronary artery (Chronic) Onset Date: 04/13/15 Z95.5 IVUS left main 06/07/2014, PCI-FAREED Prox & Mid LAD S/P CABG x 2 (Chronic) Onset Date: 06/11/14 Z95.1 CABG X 2 CAN-LAD, SVG-CX @ [facility] per Dr. Sutton Surgical History: arthroscopy, knee, - - CABG x 2, PCI prior, ankle surgery, renal surgery, TKR. Lives: With Family Smoking Status: Never smoker Tobacco Use: Non-smoker Alcohol: None Drugs: None - *Family History Maternal Family History: Family History (Last Reviewed 12/07/18 @ 08:58 by Pastora Weber) Father Heart disease Sister Cancer Uncle CAD (coronary artery disease) History Items: Stroke Paternal Family History: Family History (Last Reviewed 12/07/18 @ 08:58 by Pastora Weber) Father Heart disease Sister Cancer Uncle CAD (coronary artery disease) History Items: Heart Disease Sibling Family History: Family History (Last Reviewed 12/07/18 @ 08:58 by Pastora Weber) Father Heart disease Sister Cancer Uncle CAD (coronary artery disease) History Items: Cancer Review of Systems Constitutional: Reports: - - Complete ROS negative except as documented in HPI Patient Problems: Active and Suspected Problems (Last Reviewed 12/07/18 @ 08:58 by Pastora Weber) 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 (Acute) Slurred speech (Acute) CVA (cerebral vascular accident) (Acute) - Physical Exam General: Alert HEENT: Normocephalic Neck: Supple Lungs: Normal air movement Cardiovascular: Normal S1, Normal S2 Abdomen: Bowel Sounds Present Extremities: No cyanosis Neurological: - - Conscious, alert, CN II to XII grossly intact except mild residual chronic right INESSA, power 5/5 both upper and lower extremities, sensory loss, no cerebellar signs, reflexes + B/L B/S/T/K/A, gait deferred, mild slurred speech/dysarthria, NIHSS 1 at present, mRS 3 at baseline Psych/Mental Status: Normal Affect Vital Signs Temp Pulse Resp BP Pulse Ox 97.6 F L 79 22 H 131/90 H 94 12/08/18 12:40 12/08/18 14:34 12/08/18 14:34 12/08/18 14:34 12/08/18 14:34 Oxygen Delivery Method Room Air Weight: 77.564 kg Body Mass Index (BMI) 26.7 Finger Stick Blood Glucose 129 Laboratory Tests Past 24 Hrs 12/08/18 12/08/18 12/08/18 13:01 13:01 13:01 WBC 6.3 RBC 4.42 Hgb 14.1 Hct 42.2 MCV 95.5 MCH 31.9 MCHC 33.4 RDW 13.4 RDW Differential 46.8 H Plt Count 301 MPV 9.0 Immature Gran % (Auto) 0.000 Neut % (Auto) 64.4 Lymph % (Auto) 21.5 [place] % (Auto) 11.1 H Eos % (Auto) 2.7 Baso % (Auto) 0.3 Absolute Neuts (auto) 4.0 Absolute Lymphs (auto) 1.35 Total Counted Not Reportable PT 14.5 INR 1.2 APTT 31.1 Sodium 140 Potassium 3.8 Chloride 105 Carbon Dioxide 29.0 Anion Gap 6 BUN 11 Creatinine 0.81 Estim Creat Clear Calc 55.66 Est GFR (MDRD) Af Amer 88 Est GFR (MDRD) Non-Af 73 BUN/Creatinine Ratio 13.6 Glucose 111 H Calcium 8.7 Troponin I < 0.015 POC Glucose 12/08/18 13:16 POC Glucose 129 H Assessment/Plan All Active Problems (Last Reviewed 12/07/18 @ 08:58 by Pastora Weber) Closed head injury (Acute) [facility] current use of anticoagulant (Acute) Slurred speech (Acute) Internuclear ophthalmoplegia of right eye (Acute) CVA (cerebral vascular accident) (Acute) 78 year old F with PMH HTN, HLD, Neuropathy, H/O Stroke (right thalamic/left parietal in 2016, left pontine in 2017, right pontine stroke October 2018), CAD s/p stent, CABG, H/O Post cardiac procedure Afib in 2013, hypothyroidism, anxi ety/depression, H/O cavernous angioma vs meningioma s/o radiation, fibromyalgia admitted with fall and slurred speech. Per daughter patient slid out of the chair today, denies any head injury, no loss of consciousness, has been having slurred speech for the past few days, denies any focal motor weakness or sensory loss. Was recently in the rehab unit in October 2018 with acute right pontine stroke and right INESSA, continues to have residual right INESSA. On Eliquis and is on aspirin due to history of CAD status post stent and CABG. Is allergic to statins. Lives with her , is essentially wheelchair-bound, has frequent falls, does not drive and does need help with her ADLs. CTA head/neck done on 10/31/2018 reported to show Atherosclerotic calcifications at the right carotid bulb and the proximal segment of the left vertebral artery with mild luminal narrowing, no hemodynamically significant stenosis of the left ICA or the right ICA. CTA head neck done on 08/06/2016 reported to show 60 to 65% narrowing at the origin of the right ICA. Impression R/O Stroke Frequent falls Plan ?CTA head/neck done in October 2018 reviewed did not show any hemodynamically significant stenosis in the ICA ?Check MRI brain without contrast to rule rule out stroke ?Check MRI C-spine ?On Eliquis 5 mg p.o. twice daily for secondary stroke prevention. On aspirin from cardiology standpoint ?Allergic to statins ?PT/OT/ST ?Check UA ?Fall precautions ?GI/DVT prophylaxis ?Stroke risk factors discussed and stroke education provided ?Please call with questions if any ?Follow-up with neurology as outpatient in 4 weeks ?Thank you for allowing us to participate in patient's care and management. Code Visit Inpatient E&M: 66731 Init Hosp L3
--- NOTE | 2018-12-08 15:12 | ED.RN ---
Per Pt, she uses thickener in her liquids due to prior cva.
--- NOTE | 2018-12-08 15:20 | MRI_ITS ---
STUDY: MRI BRAIN WITHOUT CONTRAST REASON FOR EXAM: Female, 78 years old. Slurred speech. TECHNIQUE: Standardized multiplanar fat and water weighted pulse sequences were obtained. COMPARISON: CT brain 12/08/2018. MRI brain 11/01/2018. FINDINGS: There is no intracranial mass, mass effect or midline shift. There is no acute hemorrhage, territorial infarct or acute ischemia. There is a chronic right posterior frontal deep white matter lacunar infarct. There is moderate cerebral atrophy with widening of the extra-axial spaces and ventricular dilatation. There are multiple confluent white matter hyperintensities, distributed throughout the deep white matter tracts of the cerebral hemispheres, consistent with severe chronic white matter ischemic changes. There is no extra-axial fluid accumulation. Normal flow voids within the major intracranial circulation suggesting patency by spin echo criteria. Normal sella turcica, pituitary gland, infundibular stalk, optic chiasm and hypothalamus. Normal tectal plate and pineal gland. There are chronic white matter ischemic changes of the javi. The midbrain and medulla are otherwise normal. Normal cerebellum. Normal basal cisterns. Normal bilateral temporal bones. Normal bilateral internal auditory canals. No demonstrated orbital abnormality, within the constraints of a routine brain study. Normal visualized paranasal sinuses. Normal calvarium and skull base. Normal visualized soft tissue structures. MRI/Brain without Contrast IMPRESSION: 1. No acute findings. 2. Extensive microvascular ischemic changes. Atrophy. Electronically Signed: Agueda Fragoso MD at 20:21 EDT Tel , Service support ,
--- NOTE | 2018-12-08 15:21 | MRI_ITS ---
HISTORY: falls, slurred speech EXAM/TECHNIQUE: MR Spine Cervical W/O Contrast: Multiplanar, multisequence. 1.5 Sarahi. COMPARISON: CTA neck 10/31/18. MRI brain 04/30/18. FINDINGS: # of images incl. paperwork: 247 No fracture. No acute signal changes in the vertebrae or discs. Alignment unchanged with mild 2 mm degenerative anterolisthesis of C2 on C3 and C3 on C4, and mild 2 mm degenerative retrolisthesis of C4 on C5 and C5 on C6. Mild chronic reversal of cervical lordosis also similar to prior. These multilevel mild listheses combine with osteophytes and facet degeneration to cause only mild spinal canal narrowing. Normal contour and signal of the cervical spinal cord. Vertebral body and facet osteophytes cause high-grade left foraminal narrowing at C3-4, moderate bilateral foraminal narrowing at C4-5, and high-grade right and moderate left foraminal narrowing at C5-6. Less prominent foraminal narrowing at other levels. Small chronic pontine lacunar infarcts. Sternotomy wires partially visible. No acute findings in the paraspinal soft tissues. MRI/Spine Cervical (Routine) IMPRESSION: No acute findings. Prominent degenerative changes with only mild spinal canal narrowing, but with high-grade foraminal narrowing on the left at C3-4 and on the right at C5-6. at 2124 Reported and signed by: Tres Mack MD Electronically Signed: Tres Mack, at 21:23 EDT Tel , Service support ,
--- NOTE | 2018-12-08 15:58 | PCM.HP.STD ---
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 transplanted heart: unspecified whether [place] or transplanted heart Associated angina: angina presence unspecified Qualified Code(s): I25.10 - Atherosclerotic heart disease of [place] coronary artery without angina pectoris (7) CVA (cerebral vascular accident) Status: Acute Qualifiers: CVA mechanism: unspecified Qualified Code(s): I63.9 - Cerebral infarction, unspecified (8) Stented coronary artery Status: Chronic Comment: IVUS left main 06/07/2014, PCI-FAREED Prox & Mid LAD (9) S/P CABG x 2 Status: Chronic Comment: CABG X 2 CAN-LAD, SVG-CX @ [facility] per Dr. Sutton (10) Hyperlipidemia Status: Chronic Qualifiers: Hyperlipidemia type: pure hypercholesterolemia Qualified Code(s): E78.00 - Pure hypercholesterolemia, unspecified; E78.0 - Pure hypercholesterolemia (11) Hypertension Status: Chronic Qualifiers: Hypertension type: essential hypertension Qualified Code(s): I10 - Essential (primary) hypertension (12) Hypothyroidism Status: Chronic Qualifiers: Hypothyroidism type: unspecified Qualified Code(s): E03.9 - Hypothyroidism, unspecified History of Present Illness Date of Admission: 12/08/18 Chief Complaint: Fall and slurred speech The patient is a 78 year old F with a PMH as below who presents 2 to 3 days after worsening of her chronic slurred speech and a fall today. She states that she was sitting in her wheelchair for some reason slid out of it and hit the back of her head. She denies any loss of consciousness. In the ER CT of the brain was negative for head bleed since she is on aspirin and Eliquis. She has worsening slurred speech per the daughter but otherwise has no new deficits. In the ER labs were unremarkable and neurology was consulted who evaluated the patient and recommended an MRI of the head and C-spine. Past Medical History Past Medical History (Chronic Problems): Chronic Problems (Last Reviewed 12/07/18 @ 08:58 by Pastora Weber) Fall (Chronic) Anxiety (Chronic) Diabetes mellitus (Chronic) Sleep apnea (Chronic) Coronary artery disease (Chronic) Depression (Chronic) Stented coronary artery (Chronic 04/13/15) IVUS left main 06/07/2014, PCI-FAREED Prox & Mid LAD S/P CABG x 2 (Chronic 06/11/14) CABG X 2 CAN-LAD, SVG-CX @ [facility] per Dr. Sutton Atherosclerotic heart disease of [place] coronary artery without angina pectoris (Chronic) CABG X 2 CAN-LAD, SVG-CX 06/11/2014 @ [facility] per Dr. Sutton Stenosis of right carotid artery (Chronic) Right bundle branch block (Chronic) Hyperlipidemia (Chronic) Hypertension (Chronic) Hypothyroidism (Chronic) CVA (cerebral vascular accident) (Chronic 10/31/18) 10/31/18: MRI demonstrated tiny acute right pontine infarct 01/24/17:MRI demonstrated an acute infarct in the right thalamus and left parietal region Medical History: Medical History (Last Reviewed 12/07/18 @ 08:58 by Pastora Weber) Atherosclerotic heart disease of [place] coronary artery without angina pectoris (Chronic) I25.10 CABG X 2 CAN-LAD, SVG-CX 06/11/2014 @ [facility] per Dr. Sutton Stenosis of right carotid artery (Chronic) I65.21 Right bundle branch block (Chronic) I45.10 Hyperlipidemia (Chronic) E78.5 Hypertension (Chronic) I10 Hypothyroidism (Chronic) E03.9 CVA (cerebral vascular accident) (Chronic) Onset Date: 10/31/18 I63.9 10/31/18: MRI demonstrated tiny acute right pontine infarct 01/24/17:MRI demonstrated an acute infarct in the right thalamus and left parietal region Paroxysmal atrial fibrillation (Inactive) I48.0 patient had post op A-FIB (post CABG) in 2013 no further episodes Allergies atorvastatin Allergy (Verified 12/08/18 12:42) Other muscle weakness codeine Allergy (Verified 12/08/18 12:42) Unknown levofloxacin [From Levaquin] Allergy (Verified 12/08/18 12:42) Pain in joints Penicillins Allergy (Verified 12/08/18 12:42) Swelling tongue swells and hives pravastatin Allergy (Verified 12/08/18 12:42) myalgia Sulfa (Sulfonamide Antibiotics) Allergy (Verified 12/08/18 12:42) Swelling tongue swell and hives Home Medications: Ambulatory Orders Medication Instructions Recorded Acetaminophen [Tylenol] 1,000 mg PO Q8H PRN PRN tablet 11/20/18 Potassium Chloride [K-Dur] 10 meq PO DAILY tablet 11/20/18 Venlafaxine XR [Effexor Xr] 150 mg PO DAILY capsule 11/20/18 buPROPion XL [Wellbutrin Xl] 150 mg PO DAILY tablet.xl 11/20/18 ALPRAZolam [Xanax] 0.5 mg PO QHS 12/08/18 Apixaban [Eliquis] 5 mg PO BID 12/08/18 Aspirin [Aspirin, Baby] 81 mg PO DAILY@79912/08/18 Levothyroxine [Synthroid] 75 mcg PO DAILY@59912/08/18 Lisinopril [Zestril] 20 mg PO DAILY 12/08/18 Surgical History: Surgical History (Last Reviewed 12/07/18 @ 08:58 by Pastora Weber) Stented coronary artery (Chronic) Onset Date: 04/13/15 Z95.5 IVUS left main 06/07/2014, PCI-FAREED Prox & Mid LAD S/P CABG x 2 (Chronic) Onset Date: 06/11/14 Z95.1 CABG X 2 CAN-LAD, SVG-CX @ [facility] per Dr. Sutton Surgical History: arthroscopy, knee, - - CABG x 2, PCI prior, ankle surgery, renal surgery, TKR. Lives: With Family Smoking Status: Never smoker Tobacco Use: Non-smoker Alcohol: None Drugs: None - *Family History Maternal Family History: Family History (Last Reviewed 12/07/18 @ 08:58 by Pastora Weber) Father Heart disease Sister Cancer Uncle CAD (coronary artery disease) History Items: Stroke Paternal Family History: Family History (Last Reviewed 12/07/18 @ 08:58 by Pastora Weber) Father Heart disease Sister Cancer Uncle CAD (coronary artery disease) History Items: Heart Disease Sibling Family History: Family History (Last Reviewed 12/07/18 @ 08:58 by Pastora Weber) Father Heart disease Sister Cancer Uncle CAD (coronary artery disease) History Items: Cancer Review of Systems Constitutional: Denies: Chills, Fever, Weight Change HEENT: Denies: Head Aches, Sinus Congestion, Sinus Drainage Cardiovascular: Denies: Chest Pain, Palpitations Respiratory: Denies: Cough, Shortness of breath at rest, Sputum production Gastrointestinal: Denies: Abdominal Pain, Nausea, Vomiting Genitourinary: Denies: Dysuria Musculoskeletal: Denies: Joint Pain, Joint Tenderness Skin: Denies: Rash, Wounds Neurological: Reports: Slurred speech. Denies: Focal weakness, Numbness, Tingling Psychiatric: Denies: Anxiety, Depression Hematologic/ Lymphatic: Denies: Easy Bruising, Easy Bleeding VTE Information - Inpt Only VTE Present on Admission: No Patient Problems: Active and Suspected Problems (Last Reviewed 12/07/18 @ 08:58 by Pastora Weber) Closed head injury (Acute) senior care current use of anticoagulant (Acute) Slurred speech (Acute) CVA (cerebral vascular accident) (Acute) - Physical Exam General: Alert, Oriented x3, Cooperative, No apparent distress HEENT: Atraumatic, PERRLA, EOMI - Cannot move her right eye medially, which is chronic, Normocephalic Oral: Moist Mucosa Neck: Supple, No JVD Lungs: Clear to auscultation, Normal air movement, No rhonchi, No wheeze, No rales, Diminished Cardiovascular: Regular rate, Regular Rhythm, Normal S1, Normal S2, No murmurs Abdomen: Soft, Non Tender, Non-Distended, No Hepato-splenomegaly Extremities: No edema, Capillary Refill Less than 3 Seconds Skin: No rashes, No breakdown Neurological: Cranial nerves II-XII grossly intact - Previous INESSA apparent, Neuro grossly intact, Motor Exam 5/5 strength throughout, Sensory exam intact to light touch and pain, - - Slurred speech per the daughter Psych/Mental Status: Normal Affect, Appropriate Vital Signs Temp Pulse Resp BP Pulse Ox 97.6 F L 82 19 H 139/93 H 94 12/08/18 12:40 12/08/18 15:00 12/08/18 15:00 12/08/18 15:00 12/08/18 15:00 Oxygen Delivery Method Room Air Weight: 177 lb 4.026 oz Body Mass Index (BMI) 27.7 Finger Stick Blood Glucose 129 Laboratory Tests Past 24 Hrs 12/08/18 12/08/18 12/08/18 13:01 13:01 13:01 WBC 6.3 RBC 4.42 Hgb 14.1 Hct 42.2 MCV 95.5 MCH 31.9 MCHC 33.4 RDW 13.4 RDW Differential 46.8 H Plt Count 301 MPV 9.0 Immature Gran % (Auto) 0.000 Neut % (Auto) 64.4 Lymph % (Auto) 21.5 [place] % (Auto) 11.1 H Eos % (Auto) 2.7 Baso % (Auto) 0.3 Absolute Neuts (auto) 4.0 Absolute Lymphs (auto) 1.35 Total Counted Not Reportable PT 14.5 INR 1.2 APTT 31.1 Sodium 140 Potassium 3.8 Chloride 105 Carbon Dioxide 29.0 Anion Gap 6 BUN 11 Creatinine 0.81 Estim Creat Clear Calc 55.66 Est GFR (MDRD) Af Amer 88 Est GFR (MDRD) Non-Af 73 BUN/Creatinine Ratio 13.6 Glucose 111 H Calcium 8.7 Troponin I < 0.015 POC Glucose 12/08/18 13:16 POC Glucose 129 H Assessment/Plan All Active Problems (Last Reviewed 12/07/18 @ 08:58 by Pastora Weber) 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 Slurred speech and fall with possible CVA/history of stroke -No head bleed on CT scan -Appreciate neurology input, she had a right thalamic and left parietal stroke in 2016 as well as a left pontine in 2017 and a right pontine stroke in October 2018 which caused her right INESSA. -She has had multiple strokes her most recent one was in October where she developed the inability to move her right eye medially -Her baseline neurological status is the same -We will obtain PT/OT/ST -Continue with her Eliquis and aspirin -Follow-up MRI of brain and C-spine -she has had multiple MRIs of the head and neck as well as CTAs of the head and neck and therefore will not repeat unless there is a new stroke on MRI, she has had no significant narrowing on the most recent CTAs of her head and neck in October -We will obtain a UA and possible urine culture to evaluate for other reasons for the slurred speech 2. HTN/HLD -She is allergic to statins and therefore cannot be on them -We will continue with lisinopril for blood pressure control 3. Anxiety/depression -Stable -We will continue with home Xanax/Wellbutrin/Effexor 4. Hypothyroidism -Stable -Continue with Synthroid DVT: Eliquis Code Visit OBSV E&M: [id number] Initial observation care L3
--- NOTE | 2018-12-08 16:00 | CASEMGMT ---
RN CM Assessment Introduced role of RN CM to patient and patient Dtr Karli at bedside.? Patient is alert, oriented and able?to participate in RN CM Assessment. Most information obtained from Dtr Karli at bedside.?Care providers, pharmacy, and demographics verified. Presentation: Slid out of WC and hit head on ground, On Eliquis, Has been slurring speech the past couple days. Admit Dx: ?CVA Re-Admit: Yes, Inpt 10/31-11/02/18 for CVA, RU 11/02-11/21/18, was Dc'd with [facility] Barriers/Issues: Patient lives with her who has COPD on Hospice, per Dtr Roseanna and patient falls out of her WC daily or out of her bed. Dtr just bought a bed side rail. Patient needs assistance with all other ADL's except dressing, has Meals delivered from [employer] and her heats them up, Dtr comes over every evening every day and most of the day on Saturdays. Patient is currently on waiting list for an Aide through [employer], Aide from [facility] assists with bathing twice/week, Dtr would only be able to do it once/week once HHC ends. This global technical writer discussed possiblilities of GROUP HOME, per Dtr patient has been thinking about it and does not like to be away from patient so patient does not want to stay long this admission and wants to get back home, per patient her does better when she is there. General Resource Guide given to Dtr for GROUP HOME information and other resources if needed, Patient and Dtr agreeable to CCN referral for once HHC ends. PCP: Marisol Casas Specialists: Cardio- Dr Jones, Neuro- Dr Alan Preferred Pharmacy: [facility] Insurance: [facility] A[facility]B, [facility], Per Dtr ITA Rx Benefit:?Yes LNOK: [facility] LW/HPOA: Yes both on file at [facility], HPOA- [facility] Living Arrangements:? Lives with her in a SS home, 1-2 steps to enter w/hand rail. ADL?s: Has been WC Bound since DC from , Patient able to transfer self from . Dtr has been assisting with using waist safety belt and patient walker to assist patient walking to keep strengthening her legs. Patient can dress self but requires assistance with all other ADL's Transportation: Dtr Roseanna and same at DC DME: Shower Bench, Grab Bars, Commode, Bed Rail, Walker, holding belt, WC. HHC: Current with [facility] PT and Aide Goal: Home with resumption of HHC, open to CCN referral. DC PLAN: Home with resumption of HHC and possible CCN Referral. Chucky Kirkpatrick RNCM
--- NOTE | 2018-12-08 16:04 | HP.PCM_ITS ---
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 transplanted heart: unspecified whether [place] or transplanted heart Associated angina: angina presence unspecified Qualified Code(s): I25.10 - Atherosclerotic heart disease of [place] coronary artery without angina pectoris (7) CVA (cerebral vascular accident) Status: Acute Qualifiers: CVA mechanism: unspecified Qualified Code(s): I63.9 - Cerebral infarction, unspecified (8) Stented coronary artery Status: Chronic Comment: IVUS left main 06/07/2014, PCI-FAREED Prox & Mid LAD (9) S/P CABG x 2 Status: Chronic Comment: CABG X 2 CNA-LAD, SVG-CX @ [facility] per Dr. Sutton (10) Hyperlipidemia Status: Chronic Qualifiers: Hyperlipidemia type: pure hypercholesterolemia Qualified Code(s): E78.00 - Pure hypercholesterolemia, unspecified; E78.0 - Pure hypercholesterolemia (11) Hypertension Status: Chronic Qualifiers: Hypertension type: essential hypertension Qualified Code(s): I10 - Essential (primary) hypertension (12) Hypothyroidism Status: Chronic Qualifiers: Hypothyroidism type: unspecified Qualified Code(s): E03.9 - Hypothyroidism, unspecified History of Present Illness Date of Admission: 12/08/18 Chief Complaint: Fall and slurred speech The patient is a 78 year old F with a PMH as below who presents 2 to 3 days after worsening of her chronic slurred speech and a fall today. She states that she was sitting in her wheelchair for some reason slid out of it and hit the back of her head. She denies any loss of consciousness. In the ER CT of the brain was negative for head bleed since she is on aspirin and Eliquis. She has worsening slurred speech per the daughter but otherwise has no new deficits. In the ER labs were unremarkable and neurology was consulted who evaluated the patient and recommended an MRI of the head and C-spine. Past Medical History Past Medical History (Chronic Problems): Chronic Problems (Last Reviewed 12/07/18 @ 08:58 by Pastora Webre) Fall (Chronic) Anxiety (Chronic) Diabetes mellitus (Chronic) Sleep apnea (Chronic) Coronary artery disease (Chronic) Depression (Chronic) Stented coronary artery (Chronic 04/13/15) IVUS left main 06/07/2014, PCI-FAREED Prox & Mid LAD S/P CABG x 2 (Chronic 06/11/14) CABG X 2 CAN-LAD, SVG-CX @ [facility] per Dr. Sutton Atherosclerotic heart disease of [place] coronary artery without angina pectoris (Chronic) CABG X 2 CAN-LAD, SVG-CX 06/11/2014 @ [facility] per Dr. Sutton Stenosis of right carotid artery (Chronic) Right bundle branch block (Chronic) Hyperlipidemia (Chronic) Hypertension (Chronic) Hypothyroidism (Chronic) CVA (cerebral vascular accident) (Chronic 10/31/18) 10/31/18: MRI demonstrated tiny acute right pontine infarct 01/24/17:MRI demonstrated an acute infarct in the right thalamus and left parietal region Medical History: Medical History (Last Reviewed 12/07/18 @ 08:58 by Pastora Weber) Atherosclerotic heart disease of [place] coronary artery without angina pectoris (Chronic) I25.10 CABG X 2 CAN-LAD, SVG-CX 06/11/2014 @ [facility] per Dr. Sutton Stenosis of right carotid artery (Chronic) I65.21 Right bundle branch block (Chronic) I45.10 Hyperlipidemia (Chronic) E78.5 Hypertension (Chronic) I10 Hypothyroidism (Chronic) E03.9 CVA (cerebral vascular accident) (Chronic) Onset Date: 10/31/18 I63.9 10/31/18: MRI demonstrated tiny acute right pontine infarct 01/24/17:MRI demonstrated an acute infarct in the right thalamus and left parietal region Paroxysmal atrial fibrillation (Inactive) I48.0 patient had post op A-FIB (post CABG) in 2013 no further episodes Allergies atorvastatin Allergy (Verified 12/08/18 12:42) Other muscle weakness codeine Allergy (Verified 12/08/18 12:42) Unknown levofloxacin [From Levaquin] Allergy (Verified 12/08/18 12:42) Pain in joints Penicillins Allergy (Verified 12/08/18 12:42) Swelling tongue swells and hives pravastatin Allergy (Verified 12/08/18 12:42) myalgia Sulfa (Sulfonamide Antibiotics) Allergy (Verified 12/08/18 12:42) Swelling tongue swell and hives Home Medications: Ambulatory Orders Medication Instructions Recorded Acetaminophen [Tylenol] 1,000 mg PO Q8H PRN PRN tablet 11/20/18 Potassium Chloride [K-Dur] 10 meq PO DAILY tablet 11/20/18 Venlafaxine XR [Effexor Xr] 150 mg PO DAILY capsule 11/20/18 buPROPion XL [Wellbutrin Xl] 150 mg PO DAILY tablet.xl 11/20/18 ALPRAZolam [Xanax] 0.5 mg PO QHS 12/08/18 Apixaban [Eliquis] 5 mg PO BID 12/08/18 Aspirin [Aspirin, Baby] 81 mg PO DAILY@79912/08/18 Levothyroxine [Synthroid] 75 mcg PO DAILY@59912/08/18 Lisinopril [Zestril] 20 mg PO DAILY 12/08/18 Surgical History: Surgical History (Last Reviewed 12/07/18 @ 08:58 by Pastora Weber) Stented coronary artery (Chronic) Onset Date: 04/13/15 Z95.5 IVUS left main 06/07/2014, PCI-FAREED Prox & Mid LAD S/P CABG x 2 (Chronic) Onset Date: 06/11/14 Z95.1 CABG X 2 CAN-LAD, SVG-CX @ [facility] per Dr. Sutton Surgical History: arthroscopy, knee, - - CABG x 2, PCI prior, ankle surgery, renal surgery, TKR. Lives: With Family Smoking Status: Never smoker Tobacco Use: Non-smoker Alcohol: None Drugs: None - *Family History Maternal Family History: Family History (Last Reviewed 12/07/18 @ 08:58 by Pastora Weber) Father Heart disease Sister Cancer Uncle CAD (coronary artery disease) History Items: Stroke Paternal Family History: Family History (Last Reviewed 12/07/18 @ 08:58 by Pastora Weber) Father Heart disease Sister Cancer Uncle CAD (coronary artery disease) History Items: Heart Disease Sibling Family History: Family History (Last Reviewed 12/07/18 @ 08:58 by Pastora Weber) Father Heart disease Sister Cancer Uncle CAD (coronary artery disease) History Items: Cancer Review of Systems Constitutional: Denies: Chills, Fever, Weight Change HEENT: Denies: Head Aches, Sinus Congestion, Sinus Drainage Cardiovascular: Denies: Chest Pain, Palpitations Respiratory: Denies: Cough, Shortness of breath at rest, Sputum production Gastrointestinal: Denies: Abdominal Pain, Nausea, Vomiting Genitourinary: Denies: Dysuria Musculoskeletal: Denies: Joint Pain, Joint Tenderness Skin: Denies: Rash, Wounds Neurological: Reports: Slurred speech. Denies: Focal weakness, Numbness, Tingling Psychiatric: Denies: Anxiety, Depression Hematologic/ Lymphatic: Denies: Easy Bruising, Easy Bleeding VTE Information - Inpt Only VTE Present on Admission: No Patient Problems: Active and Suspected Problems (Last Reviewed 12/07/18 @ 08:58 by Pastora Weber) Closed head injury (Acute) half-way current use of anticoagulant (Acute) Slurred speech (Acute) CVA (cerebral vascular accident) (Acute) - Physical Exam General: Alert, Oriented x3, Cooperative, No apparent distress HEENT: Atraumatic, PERRLA, EOMI - Cannot move her right eye medially, which is chronic, Normocephalic Oral: Moist Mucosa Neck: Supple, No JVD Lungs: Clear to auscultation, Normal air movement, No rhonchi, No wheeze, No rales, Diminished Cardiovascular: Regular rate, Regular Rhythm, Normal S1, Normal S2, No murmurs Abdomen: Soft, Non Tender, Non-Distended, No Hepato-splenomegaly Extremities: No edema, Capillary Refill Less than 3 Seconds Skin: No rashes, No breakdown Neurological: Cranial nerves II-XII grossly intact - Previous INESSA apparent, Neuro grossly intact, Motor Exam 5/5 strength throughout, Sensory exam intact to light touch and pain, - - Slurred speech per the daughter Psych/Mental Status: Normal Affect, Appropriate Vital Signs Temp Pulse Resp BP Pulse Ox 97.6 F L 82 19 H 139/93 H 94 12/08/18 12:40 12/08/18 15:00 12/08/18 15:00 12/08/18 15:00 12/08/18 15:00 Oxygen Delivery Method Room Air Weight: 177 lb 4.026 oz Body Mass Index (BMI) 27.7 Finger Stick Blood Glucose 129 Laboratory Tests Past 24 Hrs 12/08/18 12/08/18 12/08/18 13:01 13:01 13:01 WBC 6.3 RBC 4.42 Hgb 14.1 Hct 42.2 MCV 95.5 MCH 31.9 MCHC 33.4 RDW 13.4 RDW Differential 46.8 H Plt Count 301 MPV 9.0 Immature Gran % (Auto) 0.000 Neut % (Auto) 64.4 Lymph % (Auto) 21.5 [place] % (Auto) 11.1 H Eos % (Auto) 2.7 Baso % (Auto) 0.3 Absolute Neuts (auto) 4.0 Absolute Lymphs (auto) 1.35 Total Counted Not Reportable PT 14.5 INR 1.2 APTT 31.1 Sodium 140 Potassium 3.8 Chloride 105 Carbon Dioxide 29.0 Anion Gap 6 BUN 11 Creatinine 0.81 Estim Creat Clear Calc 55.66 Est GFR (MDRD) Af Amer 88 Est GFR (MDRD) Non-Af 73 BUN/Creatinine Ratio 13.6 Glucose 111 H Calcium 8.7 Troponin I < 0.015 POC Glucose 12/08/18 13:16 POC Glucose 129 H Assessment/Plan All Active Problems (Last Reviewed 12/07/18 @ 08:58 by Pastora Weber) 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 Slurred speech and fall with possible CVA/history of stroke -No head bleed on CT scan -Appreciate neurology input, she had a right thalamic and left parietal stroke in 2016 as well as a left pontine in 2017 and a right pontine stroke in October 2018 which caused her right INESSA. -She has had multiple strokes her most recent one was in October where she developed the inability to move her right eye medially -Her baseline neurological status is the same -We will obtain PT/OT/ST -Continue with her Eliquis and aspirin -Follow-up MRI of brain and C-spine -she has had multiple MRIs of the head and neck as well as CTAs of the head and neck and therefore will not repeat unless there is a new stroke on MRI, she has had no significant narrowing on the most recent CTAs of her head and neck in October -We will obtain a UA and possible urine culture to evaluate for other reasons for the slurred speech 2. HTN/HLD -She is allergic to statins and therefore cannot be on them -We will continue with lisinopril for blood pressure control 3. Anxiety/depression -Stable -We will continue with home Xanax/Wellbutrin/Effexor 4. Hypothyroidism -Stable -Continue with Synthroid DVT: Eliquis Code Visit OBSV E&M: 29595 Initial observation care L3
[2018-12-08] MEDS: 0.9% Normal Saline 1,000 ML 75 ML IV (16:08)
--- NOTE | 2018-12-08 20:18 | PCA ---
12/08/18 1900 pt out of room during rounds. At MRI.
[2018-12-08] MEDS: APIXABAN 5 MG TABLET PO (20:45)
[2018-12-08] MEDS: ALPRAZolam 0.5 MG Tablet PO (20:45)
[2018-12-08 22:56] LABS: Mucous, Urine 0 SEEN /hpf (<or=2+)
[2018-12-08 22:59] LABS: Color, Urine Yellow (Yellow); Glucose, Dipstick Normal (Normal); Ketone-Dipstick Negative (Negative); Leukocyte Esterase-Dipstick 100 /ul (Negative); Nitrite-Dipstick Negative (Negative); Occult Blood-Urine Negative /ul (Negative); Protein-Dipstick Negative (Negative); Specific Gravity, Urine 1.025 (1.002-1.030); Urine Bilirubin Dipstick Negative (Negative); Urine Clarity Clear (Clear); Urine Urobilinogen Normal (Normal)
[2018-12-08 23:04] LABS: Red Blood Cells-Urine 0-5 SEEN /hpf (0-5); Squamous Epithelial Cells - UA 0-5 SEEN /hpf (5-10); White Blood Cells 5-10 SEEN /hpf (0-5)
[2018-12-08 23:05] LABS: Bacteria RARE /hpf (None Seen)
[2018-12-09] VITALS (7 sets, daily range): BP systolic 122–153; BP diastolic 73–89; PULSE 67–80; RESP 16–18; TEMP 36.4–37; O2SAT 93–94
[2018-12-09 06:15] LABS: Basophil# 0.02 X10^3/uL; Basophil% 0.4 % (0-1); Eosinophil# 0.21 X10^3/uL; Eosinophils% 3.7 % (0-5); Hematocrit 38.4 % (37-47); Hemoglobin 12.9 g/dl (12.0-15.0); Lymphocyte % 28.2 % (19-41); Mean Corp Hgb Conc 33.6 g/gl (32-36); Mean Corpuscular Hgb 31.8 pg (27.0-32.0); Mean Corpuscular Volume 94.6 fL (81-99); Mean Platelet Vol. 9.7 fl (6.2-12.0); Monocyte# 0.85 X10^3/uL; Neutrophil # 2.99 X10^3/uL (2.7-7.7); Neutrophil % 52.5 % (47-70); Platelet Count 288 K/mm3 (150-450); RBC Distribution Width CV 13.2 % (11.6-14.6); Red Blood Count 4.06 M/mm3 (4.2-5.4); White Blood Count 5.7 K/mm3 (4.4-11.0)
[2018-12-09 06:17] LABS: POSITIVE COUNT NO; POSITIVE DIFFERENTIAL NO; POSITIVE MORPHOLOGY NO
[2018-12-09 06:41] LABS: Anion Gap 6 (5-15); BUN 12 mg/dL (7-18); BUN/Creat Ratio 17.4 RATIO (10-20); Calcium,Total 8.4 mg/dL (8.5-10.1); Chloride 107 mmol/L (98-107); Creatinine, Serum 0.69 mg/dL (0.55-1.02); EST Glomerular Filtration Rate 88 mL/min (>60); Est Glom Filt Rate - Afr Amer 106 mL/min (>60); Estimated Creatinine Clearance 45.09 ml/min; Glucose 89 mg/dL (74-106); Potassium 3.7 mmol/L (3.5-5.1); Sodium Level 139 mmol/L (136-145)
[2018-12-09] MEDS: Levothyroxine 75 MCG Tablet PO (06:43)
[2018-12-09] MEDS: 0.9% Normal Saline 1,000 ML 75 ML IV (06:43)
[2018-12-09] MEDS: APIXABAN 5 MG TABLET PO (08:30)
[2018-12-09] MEDS: Venlafaxine XR 150 MG Capsule PO (08:30)
[2018-12-09] MEDS: Aspirin 81 MG TAB.CHEW PO (08:30)
[2018-12-09] MEDS: Lisinopril 20 MG Tablet PO (08:30)
[2018-12-09] MEDS: buPROPion (XL) 150 MG TABLET.XL PO (08:30)
--- NOTE | 2018-12-09 10:11 | CASEMGMT ---
Patient has a Healthcare POA and Healthcare LW on file at [facility]. Maryjo KESSLER SAUSAGE STRINGER
--- NOTE | 2018-12-09 11:18 | DCINST_ITS ---
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) Fall (Chronic) Slurred speech (Acute) CVA (cerebral vascular accident) (Acute) You will use the following diet at home:: Calorie/Carbohydrate Controlled (specify 1200, 1400, etc) - 1800 annabelle / day, Cardiac Your food should be the consistency of: Regular Your liquids should be the consistency of: Regular/Thin Discharge Activity: Return to Normal Activity Allergies/Adverse Reactions: Allergies atorvastatin Allergy (Verified 12/08/18 12:42) Other muscle weakness codeine Allergy (Verified 12/08/18 12:42) Unknown levofloxacin [From Levaquin] Allergy (Verified 12/08/18 12:42) Pain in joints Penicillins Allergy (Verified 12/08/18 12:42) Swelling tongue swells and hives pravastatin Allergy (Verified 12/08/18 12:42) myalgia Sulfa (Sulfonamide Antibiotics) Allergy (Verified 12/08/18 12:42) Swelling tongue swell and hives Medications to take at Discharge Acetaminophen [Tylenol] 1,000 mg PO Q8H PRN PRN tablet 11/20/18 Potassium Chloride [K-Dur] 10 meq PO DAILY tablet 11/20/18 Venlafaxine XR [Effexor Xr] 150 mg PO DAILY capsule 11/20/18 buPROPion XL [Wellbutrin Xl] 150 mg PO DAILY tablet.xl 11/20/18 ALPRAZolam [Xanax] 0.5 mg PO QHS 12/08/18 Apixaban [Eliquis] 5 mg PO BID 12/08/18 Aspirin [Aspirin, Baby] 81 mg PO DAILY@0812/08/18 Levothyroxine [Synthroid] 75 mcg PO DAILY@0612/08/18 Lisinopril [Zestril] 20 mg PO DAILY 12/08/18 Primary Care Physician: Marisol Casas DO [Primary Care Provider] - Please follow up with your Primary Care Physician in: 1-2 weeks Test Results: Test results from this visit will be discussed in further detail at your follow- up appointment, if applicable. Please Follow Up With: Juan Alan MD When: 4 weeks Proposed Discharge Date: 12/09/18
--- NOTE | 2018-12-09 12:39 | PN.NEURO_ITS ---
Subjective: No issues overnight. MRI brain reported not to show anything acute. MRI C- spine reported to show Alignment unchanged with mild 2 mm degenerative a nterolisthesis of C2 on C3 and C3 on C4, and mild 2 mm degenerative retrolisthesis of C4 on C5 and C5 on C6. Mild chronic reversal of cervical lordosis also similar to prior, prominent degenerative changes with only mild spinal canal narrowing, high-grade foraminal narrowing on the left at C3-C4 and on the right at C5-C6 - Physical Exam General: Alert HEENT: Normocephalic Neck: Supple Lungs: Normal air movement Cardiovascular: Normal S1, Normal S2 Abdomen: Bowel Sounds Present Extremities: No cyanosis Neurological: - - Conscious, alert, CN II to XII grossly intact except mild res idual chronic right INESSA, power 5/5 both upper and lower extremities, sensory loss, no cerebellar signs, reflexes + B/L B/S/T/K/A, gait deferred, no dysarthria at present, mRS 3 at baseline Psych/Mental Status: Normal Affect Vital Signs Temp Pulse Resp BP Pulse Ox 98.6 F 73 16 126/79 H 93 12/09/18 11:17 12/09/18 11:17 12/09/18 11:17 12/09/18 11:17 12/09/18 11:17 Oxygen Delivery Method Room Air Weight: 80.4 kg Body Mass Index (BMI) 27.7 Finger Stick Blood Glucose 129 Orthostatic Vital Signs Start: 12/09/18 11:16 Freq: q24h Status: Active Protocol: Activity Type Activity Date Activity User E-Sign Co-Sign Detail Recorded Client Recorded Date Recorded By Document 12/09/18 11:16 AMG [id number] 12/09/18 11:19 AMG 12/09/18 11:16 Orthostatic Vitals Standing -Blood Pressure (90/60-120/80) 125/78 H -Extremity Use Right Arm -Pulse Rate (60-100) 80 Sitting -Blood Pressure (90/60-120/80) 126/79 H -Extremity Use Right Arm -Pulse Rate (60-100) 73 Lying -Blood Pressure (90/60-120/80) 122/79 H -Extremity Use Right Arm -Pulse Rate (60-100) 71 Intake and Output for Last 24 Hours 12/07/18 12/08/18 12/09/18 23:59 23:59 23:59 Intake Total 852 / 852 1119 / 1119 Balance 852 / 852 1119 / 1119 Laboratory Tests Past 24 Hrs 12/08/18 12/08/18 12/08/18 13:01 13:01 13:01 WBC 6.3 RBC 4.42 Hgb 14.1 Hct 42.2 MCV 95.5 MCH 31.9 MCHC 33.4 RDW 13.4 RDW Differential 46.8 H Plt Count 301 MPV 9.0 Immature Gran % (Auto) 0.000 Neut % (Auto) 64.4 Lymph % (Auto) 21.5 [place] % (Auto) 11.1 H Eos % (Auto) 2.7 Baso % (Auto) 0.3 Absolute Neuts (auto) 4.0 Absolute Lymphs (auto) 1.35 Total Counted Not Reportable PT 14.5 INR 1.2 APTT 31.1 Sodium 140 Potassium 3.8 Chloride 105 Carbon Dioxide 29.0 Anion Gap 6 BUN 11 Creatinine 0.81 Estim Creat Clear Calc 55.66 Est GFR (MDRD) Af Amer 88 Est GFR (MDRD) Non-Af 73 BUN/Creatinine Ratio 13.6 Glucose 111 H Calcium 8.7 Troponin I < 0.015 Urine Color Urine Clarity Urine pH Ur Specific [place] Urine Protein Urine Glucose (UA) Urine Ketones Urine Occult Blood Urine Nitrite Urine Bilirubin Urine Urobilinogen Ur Leukocyte Esterase Urine RBC Urine WBC Ur Squamous Epith Cells Urine Bacteria Urine Mucus 12/08/18 12/09/18 12/09/18 22:46 05:25 05:25 WBC 5.7 RBC 4.06 L Hgb 12.9 Hct 38.4 MCV 94.6 MCH 31.8 MCHC 33.6 RDW 13.2 RDW Differential 44.0 H Plt Count 288 MPV 9.7 Immature Gran % (Auto) 0.200 Neut % (Auto) 52.5 Lymph % (Auto) 28.2 [place] % (Auto) 15.0 H Eos % (Auto) 3.7 Baso % (Auto) 0.4 Absolute Neuts (auto) 3.0 Absolute Lymphs (auto) 1.60 Total Counted Not Reportable PT INR APTT Sodium 139 Potassium 3.7 Chloride 107 Carbon Dioxide 26.0 Anion Gap 6 BUN 12 Creatinine 0.69 Estim Creat Clear Calc 45.09 Est GFR (MDRD) Af Amer 106 Est GFR (MDRD) Non-Af 88 BUN/Creatinine Ratio 17.4 Glucose 89 Calcium 8.4 L Troponin I Urine Color Yellow Urine Clarity Clear Urine pH 5.0 Ur Specific [place] 1.025 Urine Protein Negative Urine Glucose (UA) Normal Urine Ketones Negative Urine Occult Blood Negative Urine Nitrite Negative Urine Bilirubin Negative Urine Urobilinogen Normal Ur Leukocyte Esterase 100 H Urine RBC 0-5 SEEN Urine WBC 5-10 SEEN Ur Squamous Epith Cells 0-5 SEEN Urine Bacteria RARE Urine Mucus 0 SEEN POC Glucose 12/08/18 13:16 POC Glucose 129 H Medical Necessity - Tobacco Use Smoking Status: Never smoker Tobacco Use: Non-smoker Assessment/Plan All Active Problems (Last Reviewed 12/07/18 @ 08:58 by Pastora Weber) 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 Per daughter patient slid out of the chair 12/08/2018, denies any head injury, no loss of consciousness, has been having slurred speech for the past few days, denies any focal motor weakness or sensory loss. Was recently in the rehab unit in October 2018 with acute right pontine stroke and right INESSA, continues to have residual right INESSA. On Eliquis and is on aspirin due to history of CAD status post stent and CABG. Is allergic to statins. Lives with her , is essentially wheelchair- bound, has frequent falls, does not drive and does need help with her ADLs. CTA head/neck done on 10/31/2018 reported to show Atherosclerotic calcifications at the right carotid bulb and the proximal segment of the left vertebral artery with mild luminal narrowing, no hemodynamically significant stenosis of the left ICA or the right ICA. CTA head neck done on 08/06/2016 reported to show 60 to 65% narrowing at the origin of the right ICA. Impression Frequent fall History of stroke Plan ?CTA head/neck done in October 2018 reviewed did not show any hemodynamically significant stenosis in the ICA ?MRI brain without contrast read nothing acute ?MRI C-spine reported to show alignment unchanged with mild 2 mm degenerative anterolisthesis of C2 on C3 and C3 on C4, and mild 2 mm degenerative retrolisthesis of C4 on C5 and C5 on C6. Mild chronic reversal of cervical lordosis also similar to prior, prominent degenerative changes with only mild spinal canal narrowing, high-grade foraminal narrowing on the left at C3-C4 and on the right at C5-C6 -Spine surgery consult as outpatient. ?On Eliquis 5 mg p.o. twice daily for secondary stroke prevention. On aspirin from cardiology standpoint ?Allergic to statins ?PT/OT/ST ?UA-clear, LE?100, nitrite negative, WBC 5-10, rare bacteria. Further management per hospitalist recommendations ?Fall precautions ?GI/DVT prophylaxis ?Stroke risk factors discussed and stroke education provided ?Please call with questions if any ?Follow-up with neurology as outpatient in 4 weeks ?Thank you for allowing us to participate in patient's care and management.
--- NOTE | 2018-12-09 12:47 | PCM.DC.SUM ---
Discharge Date and Diagnosis - Problem List Patient Problems: Active and Suspected Problems (Last Reviewed 12/07/18 @ 08:58 by Pastora Weber) Closed head injury (Acute) [facility] current use of anticoagulant (Acute) Slurred speech (Acute) CVA (cerebral vascular accident) (Acute) Date of Admission: 12/08/18 Date of Discharge: 12/09/18 - Primary Discharge Diagnosis Active and Suspected Problems (Last Reviewed 12/07/18 @ 08:58 by Pastora Weber) Fall, head injury, no acute process CVA ruled out Generalized debility with increased falls frequently Past CVA with ongoing slurred speech, dysphagia, and weakness Cervical foraminal stenosis CAD prior stents, CABG HTN, HLD Hypothyroidism - Secondary Discharge Diagnosis Chronic Problems (Last Reviewed 12/07/18 @ 08:58 by Pastora Weber) Fall (Chronic) Anxiety (Chronic) Diabetes mellitus (Chronic) Sleep apnea (Chronic) Coronary artery disease (Chronic) Depression (Chronic) Stented coronary artery (Chronic 04/13/15) IVUS left main 06/07/2014, PCI-FAREED Prox & Mid LAD S/P CABG x 2 (Chronic 06/11/14) CABG X 2 CAN-LAD, SVG-CX @ [facility] per Dr. Sutton Atherosclerotic heart disease of [place] coronary artery without angina pectoris (Chronic) CABG X 2 CAN-LAD, SVG-CX 06/11/2014 @ [facility] per Dr. Sutton Stenosis of right carotid artery (Chronic) Right bundle branch block (Chronic) Hyperlipidemia (Chronic) Hypertension (Chronic) Hypothyroidism (Chronic) CVA (cerebral vascular accident) (Chronic 10/31/18) 10/31/18: MRI demonstrated tiny acute right pontine infarct 01/24/17:MRI demonstrated an acute infarct in the right thalamus and left parietal region Hospital Course and Treatment Imaging Results: CT/Brain/Head without Contrast IMPRESSION: Chronic involutional changes of the brain. RAD/Chest 1 View IMPRESSION: No acute abnormality is seen. MRI/Brain without Contrast IMPRESSION: 1. No acute findings. 2. Extensive microvascular ischemic changes. Atrophy. MRI/Spine Cervical (Routine) IMPRESSION: No acute findings. Prominent degenerative changes with only mild spinal canal narrowing, but with high-grade foraminal narrowing on the left at C3-4 and on the right at C5-6. Consults: Nuerology Sesar Alan Operations: None Procedures: None Summary of Care Provided: Hospital course: The patient is a 78 year old F with a past medical history of prior CVA with residual slurred speech, dysphagia, generalized weakness, frequent falling at home, also with a history of CAD with prior stents and CABG, DMt2, hypertension, hyperlipidemia, anxiety, hypothyroidism, who presented to the emergency room from home 2 to 3 days after she had worsening of her slurred speech and a fall at home the day of presentation. She had been sitting in a chair and slid out of it to the floor. There was no loss of consciousness. Her CT of the brain was negative, in the emergency room. Trop and CXR were negative, no signs of infectious process. She had no other deficits. She recently had a CTA of the head and neck which was unremarkable. An MRI of the brain was obtained with no acute process. MRI of the C-spine was also obtained she does have some foraminal stenosis that she will need evaluated as an outpatient. Orthostatic vitals were negative. The patient lives with her whom is in poor health and she helps care for her. She already has home health care for PT OT and speech therapy. We advised her to continue this. Neurology recommended follow-up in 4 weeks in the office. She was discharged home with home health care in stable condition. This patient was seen by Alexy Elizabeth PA-C under the supervision of Doctor Willie. 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) Slurred speech (Acute) CVA (cerebral vascular accident) (Acute) - Physical Exam General: Alert, Oriented x3, Cooperative HEENT: Atraumatic, PERRLA, EOMI, Normocephalic Neck: Supple, No JVD, Negative Carotid Bruits Lungs: Clear to auscultation, Normal air movement Cardiovascular: Regular rate, No murmurs Abdomen: Bowel Sounds Present, Soft, Non Tender Extremities: No edema, Capillary Refill Less than 3 Seconds Skin: No rashes, No breakdown Musculoskeletal: No Tenderness to Palpation of Joints or Extremities Neurological: Cranial nerves II-XII grossly intact Psych/Mental Status: Normal Affect, Appropriate, Alert and oriented to time, place, person, mood and affect Vital Signs Temp Pulse Resp BP Pulse Ox 98.6 F 73 16 126/79 H 93 12/09/18 11:17 12/09/18 11:17 12/09/18 11:17 12/09/18 11:17 12/09/18 11:17 Oxygen Delivery Method Room Air Weight: 177 lb 4.026 oz Body Mass Index (BMI) 27.7 Finger Stick Blood Glucose 129 Orthostatic Vital Signs Start: 12/09/18 11:16 Freq: q24h Status: Active Protocol: Activity Type Activity Date Activity User E-Sign Co-Sign Detail Recorded Client Recorded Date Recorded By Document 12/09/18 11:16 AMG [id number] 12/09/18 11:19 AMG 12/09/18 11:16 Orthostatic Vitals Standing -Blood Pressure (90/60-120/80) 125/78 H -Extremity Use Right Arm -Pulse Rate (60-100) 80 Sitting -Blood Pressure (90/60-120/80) 126/79 H -Extremity Use Right Arm -Pulse Rate (60-100) 73 Lying -Blood Pressure (90/60-120/80) 122/79 H -Extremity Use Right Arm -Pulse Rate (60-100) 71 Intake and Output for Last 24 Hours 12/07/18 12/08/18 12/09/18 23:59 23:59 23:59 Intake Total 852 / 852 1119 / 1119 Balance 852 / 852 1119 / 1119 Laboratory Tests Past 24 Hrs 12/08/18 12/08/18 12/08/18 13:01 13:01 13:01 WBC 6.3 RBC 4.42 Hgb 14.1 Hct 42.2 MCV 95.5 MCH 31.9 MCHC 33.4 RDW 13.4 RDW Differential 46.8 H Plt Count 301 MPV 9.0 Immature Gran % (Auto) 0.000 Neut % (Auto) 64.4 Lymph % (Auto) 21.5 [place] % (Auto) 11.1 H Eos % (Auto) 2.7 Baso % (Auto) 0.3 Absolute Neuts (auto) 4.0 Absolute Lymphs (auto) 1.35 Total Counted Not Reportable PT 14.5 INR 1.2 APTT 31.1 Sodium 140 Potassium 3.8 Chloride 105 Carbon Dioxide 29.0 Anion Gap 6 BUN 11 Creatinine 0.81 Estim Creat Clear Calc 55.66 Est GFR (MDRD) Af Amer 88 Est GFR (MDRD) Non-Af 73 BUN/Creatinine Ratio 13.6 Glucose 111 H Calcium 8.7 Troponin I < 0.015 Urine Color Urine Clarity Urine pH Ur Specific [place] Urine Protein Urine Glucose (UA) Urine Ketones Urine Occult Blood Urine Nitrite Urine Bilirubin Urine Urobilinogen Ur Leukocyte Esterase Urine RBC Urine WBC Ur Squamous Epith Cells Urine Bacteria Urine Mucus 12/08/18 12/09/18 12/09/18 22:46 05:25 05:25 WBC 5.7 RBC 4.06 L Hgb 12.9 Hct 38.4 MCV 94.6 MCH 31.8 MCHC 33.6 RDW 13.2 RDW Differential 44.0 H Plt Count 288 MPV 9.7 Immature Gran % (Auto) 0.200 Neut % (Auto) 52.5 Lymph % (Auto) 28.2 [place] % (Auto) 15.0 H Eos % (Auto) 3.7 Baso % (Auto) 0.4 Absolute Neuts (auto) 3.0 Absolute Lymphs (auto) 1.60 Total Counted Not Reportable PT INR APTT Sodium 139 Potassium 3.7 Chloride 107 Carbon Dioxide 26.0 Anion Gap 6 BUN 12 Creatinine 0.69 Estim Creat Clear Calc 45.09 Est GFR (MDRD) Af Amer 106 Est GFR (MDRD) Non-Af 88 BUN/Creatinine Ratio 17.4 Glucose 89 Calcium 8.4 L Troponin I Urine Color Yellow Urine Clarity Clear Urine pH 5.0 Ur Specific [place] 1.025 Urine Protein Negative Urine Glucose (UA) Normal Urine Ketones Negative Urine Occult Blood Negative Urine Nitrite Negative Urine Bilirubin Negative Urine Urobilinogen Normal Ur Leukocyte Esterase 100 H Urine RBC 0-5 SEEN Urine WBC 5-10 SEEN Ur Squamous Epith Cells 0-5 SEEN Urine Bacteria RARE Urine Mucus 0 SEEN POC Glucose 12/08/18 13:16 POC Glucose 129 H Discharge Diet: Low fat/ Low Cholesterol, 1800 Calorie Control Diet, 2000 mg Sodium Diet Discharge Activity: Return to Normal Activity Home Medications: Medications to take at Discharge Acetaminophen [Tylenol] 1,000 mg PO Q8H PRN PRN tablet 11/20/18 Potassium Chloride [K-Dur] 10 meq PO DAILY tablet 11/20/18 Venlafaxine XR [Effexor Xr] 150 mg PO DAILY capsule 11/20/18 buPROPion XL [Wellbutrin Xl] 150 mg PO DAILY tablet.xl 11/20/18 ALPRAZolam [Xanax] 0.5 mg PO QHS 12/08/18 Apixaban [Eliquis] 5 mg PO BID 12/08/18 Aspirin [Aspirin, Baby] 81 mg PO DAILY@79912/08/18 Levothyroxine [Synthroid] 75 mcg PO DAILY@59912/08/18 Lisinopril [Zestril] 20 mg PO DAILY 12/08/18 Primary Care Physician: Marisol Casas DO [Primary Care Provider] - Please follow up with your Primary Care Physician in: 1-2 weeks Please Follow Up With: Juan Alan MD When: 4 weeks Disposition: Home with Home Health Minutes spent on discharge:: 35 Patient Condition:: Stable Medical Necessity - Tobacco Use Smoking Status: Never smoker Tobacco Use: Non-smoker Meaningful Use Info Meaningful Use Diagnoses (Choose all that apply): None applicable
--- NOTE | 2018-12-09 12:54 | DS.PCM_ITS ---
Discharge Date and Diagnosis - Problem List Patient Problems: Active and Suspected Problems (Last Reviewed 12/07/18 @ 08:58 by Pastora Weber) Closed head injury (Acute) [facility] current use of anticoagulant (Acute) Slurred speech (Acute) CVA (cerebral vascular accident) (Acute) Date of Admission: 12/08/18 Date of Discharge: 12/09/18 - Primary Discharge Diagnosis Active and Suspected Problems (Last Reviewed 12/07/18 @ 08:58 by Pastora Weber) Fall, head injury, no acute process CVA ruled out Generalized debility with increased falls frequently Past CVA with ongoing slurred speech, dysphagia, and weakness Cervical foraminal stenosis CAD prior stents, CABG HTN, HLD Hypothyroidism - Secondary Discharge Diagnosis Chronic Problems (Last Reviewed 12/07/18 @ 08:58 by Pastora Weber) Fall (Chronic) Anxiety (Chronic) Diabetes mellitus (Chronic) Sleep apnea (Chronic) Coronary artery disease (Chronic) Depression (Chronic) Stented coronary artery (Chronic 04/13/15) IVUS left main 06/07/2014, PCI-FAREED Prox & Mid LAD S/P CABG x 2 (Chronic 06/11/14) CABG X 2 CAN-LAD, SVG-CX @ [facility] per Dr. Sutton Atherosclerotic heart disease of [place] coronary artery without angina pectoris (Chronic) CABG X 2 CAN-LAD, SVG-CX 06/11/2014 @ [facility] per Dr. Sutton Stenosis of right carotid artery (Chronic) Right bundle branch block (Chronic) Hyperlipidemia (Chronic) Hypertension (Chronic) Hypothyroidism (Chronic) CVA (cerebral vascular accident) (Chronic 10/31/18) 10/31/18: MRI demonstrated tiny acute right pontine infarct 01/24/17:MRI demonstrated an acute infarct in the right thalamus and left zoila etal region Hospital Course and Treatment Imaging Results: CT/Brain/Head without Contrast IMPRESSION: Chronic involutional changes of the brain. RAD/Chest 1 View IMPRESSION: No acute abnormality is seen. MRI/Brain without Contrast IMPRESSION: 1. No acute findings. 2. Extensive microvascular ischemic changes. Atrophy. MRI/Spine Cervical (Routine) IMPRESSION: No acute findings. Prominent degenerative changes with only mild spinal canal narrowing, but with high-grade foraminal narrowing on the left at C3-4 and on the right at C5-6. Consults: Nuerology Sesar Alan Operations: None Procedures: None Summary of Care Provided: Hospital course: The patient is a 78 year old F with a past medical history of prior CVA with residual slurred speech, dysphagia, generalized weakness, frequent falling at home, also with a history of CAD with prior stents and CABG, DMt2, hypertension, hyperlipidemia, anxiety, hypothyroidism, who presented to the emergency room from home 2 to 3 days after she had worsening of her slurred speech and a fall at home the day of presentation. She had been sitting in a chair and slid out of it to the floor. There was no loss of consciousness. Her CT of the brain was negative, in the emergency room. Trop and CXR were negative, no signs of infectious process. She had no other deficits. She recently had a CTA of the head and neck which was unremarkable. An MRI of the brain was obtained with no acute process. MRI of the C-spine was also obtained she does have some foraminal stenosis that she will need evaluated as an outpatient. Orthostatic vitals were negative. The patient lives with her whom is in poor health and she helps care for her. She already has home health care for PT OT and speech therapy. We advised her to continue this. Neurology recommended follow-up in 4 weeks in the office. She was discharged home with home health care in stable condition. This patient was seen by Alexy Elizabeth PA-C under the supervision of Doctor Willie. 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) Slurred speech (Acute) CVA (cerebral vascular accident) (Acute) - Physical Exam General: Alert, Oriented x3, Cooperative HEENT: Atraumatic, PERRLA, EOMI, Normocephalic Neck: Supple, No JVD, Negative Carotid Bruits Lungs: Clear to auscultation, Normal air movement Cardiovascular: Regular rate, No murmurs Abdomen: Bowel Sounds Present, Soft, Non Tender Extremities: No edema, Capillary Refill Less than 3 Seconds Skin: No rashes, No breakdown Musculoskeletal: No Tenderness to Palpation of Joints or Extremities Neurological: Cranial nerves II-XII grossly intact Psych/Mental Status: Normal Affect, Appropriate, Alert and oriented to time, place, person, mood and affect Vital Signs Temp Pulse Resp BP Pulse Ox 98.6 F 73 16 126/79 H 93 12/09/18 11:17 12/09/18 11:17 12/09/18 11:17 12/09/18 11:17 12/09/18 11:17 Oxygen Delivery Method Room Air Weight: 177 lb 4.026 oz Body Mass Index (BMI) 27.7 Finger Stick Blood Glucose 129 Orthostatic Vital Signs Start: 12/09/18 11:16 Freq: q24h Status: Active Protocol: Activity Type Activity Date Activity User E-Sign Co-Sign Detail Recorded Client Recorded Date Recorded By Document 12/09/18 11:16 AMG [id number] 12/09/18 11:19 AMG 12/09/18 11:16 Orthostatic Vitals Standing -Blood Pressure (90/60-120/80) 125/78 H -Extremity Use Right Arm -Pulse Rate (60-100) 80 Sitting -Blood Pressure (90/60-120/80) 126/79 H -Extremity Use Right Arm -Pulse Rate (60-100) 73 Lying -Blood Pressure (90/60-120/80) 122/79 H -Extremity Use Right Arm -Pulse Rate (60-100) 71 Intake and Output for Last 24 Hours 12/07/18 12/08/18 12/09/18 23:59 23:59 23:59 Intake Total 852 / 852 1119 / 1119 Balance 852 / 852 1119 / 1119 Laboratory Tests Past 24 Hrs 12/08/18 12/08/18 12/08/18 13:01 13:01 13:01 WBC 6.3 RBC 4.42 Hgb 14.1 Hct 42.2 MCV 95.5 MCH 31.9 MCHC 33.4 RDW 13.4 RDW Differential 46.8 H Plt Count 301 MPV 9.0 Immature Gran % (Auto) 0.000 Neut % (Auto) 64.4 Lymph % (Auto) 21.5 [place] % (Auto) 11.1 H Eos % (Auto) 2.7 Baso % (Auto) 0.3 Absolute Neuts (auto) 4.0 Absolute Lymphs (auto) 1.35 Total Counted Not Reportable PT 14.5 INR 1.2 APTT 31.1 Sodium 140 Potassium 3.8 Chloride 105 Carbon Dioxide 29.0 Anion Gap 6 BUN 11 Creatinine 0.81 Estim Creat Clear Calc 55.66 Est GFR (MDRD) Af Amer 88 Est GFR (MDRD) Non-Af 73 BUN/Creatinine Ratio 13.6 Glucose 111 H Calcium 8.7 Troponin I < 0.015 Urine Color Urine Clarity Urine pH Ur Specific [place] Urine Protein Urine Glucose (UA) Urine Ketones Urine Occult Blood Urine Nitrite Urine Bilirubin Urine Urobilinogen Ur Leukocyte Esterase Urine RBC Urine WBC Ur Squamous Epith Cells Urine Bacteria Urine Mucus 12/08/18 12/09/18 12/09/18 22:46 05:25 05:25 WBC 5.7 RBC 4.06 L Hgb 12.9 Hct 38.4 MCV 94.6 MCH 31.8 MCHC 33.6 RDW 13.2 RDW Differential 44.0 H Plt Count 288 MPV 9.7 Immature Gran % (Auto) 0.200 Neut % (Auto) 52.5 Lymph % (Auto) 28.2 [place] % (Auto) 15.0 H Eos % (Auto) 3.7 Baso % (Auto) 0.4 Absolute Neuts (auto) 3.0 Absolute Lymphs (auto) 1.60 Total Counted Not Reportable PT INR APTT Sodium 139 Potassium 3.7 Chloride 107 Carbon Dioxide 26.0 Anion Gap 6 BUN 12 Creatinine 0.69 Estim Creat Clear Calc 45.09 Est GFR (MDRD) Af Amer 106 Est GFR (MDRD) Non-Af 88 BUN/Creatinine Ratio 17.4 Glucose 89 Calcium 8.4 L Troponin I Urine Color Yellow Urine Clarity Clear Urine pH 5.0 Ur Specific [place] 1.025 Urine Protein Negative Urine Glucose (UA) Normal Urine Ketones Negative Urine Occult Blood Negative Urine Nitrite Negative Urine Bilirubin Negative Urine Urobilinogen Normal Ur Leukocyte Esterase 100 H Urine RBC 0-5 SEEN Urine WBC 5-10 SEEN Ur Squamous Epith Cells 0-5 SEEN Urine Bacteria RARE Urine Mucus 0 SEEN POC Glucose 12/08/18 13:16 POC Glucose 129 H Discharge Diet: Low fat/ Low Cholesterol, 1800 Calorie Control Diet, 2000 mg Sodium Diet Discharge Activity: Return to Normal Activity Home Medications: Medications to take at Discharge Acetaminophen [Tylenol] 1,000 mg PO Q8H PRN PRN tablet 11/20/18 Potassium Chloride [K-Dur] 10 meq PO DAILY tablet 11/20/18 Venlafaxine XR [Effexor Xr] 150 mg PO DAILY capsule 11/20/18 buPROPion XL [Wellbutrin Xl] 150 mg PO DAILY tablet.xl 11/20/18 ALPRAZolam [Xanax] 0.5 mg PO QHS 12/08/18 Apixaban [Eliquis] 5 mg PO BID 12/08/18 Aspirin [Aspirin, Baby] 81 mg PO DAILY@79912/08/18 Levothyroxine [Synthroid] 75 mcg PO DAILY@59912/08/18 Lisinopril [Zestril] 20 mg PO DAILY 12/08/18 Primary Care Physician: Marisol Casas DO [Primary Care Provider] - Please follow up with your Primary Care Physician in: 1-2 weeks Please Follow Up With: Juan Alan MD When: 4 weeks Disposition: Home with Home Health Minutes spent on discharge:: 35 Patient Condition:: Stable Medical Necessity - Tobacco Use Smoking Status: Never smoker Tobacco Use: Non-smoker Meaningful Use Info Meaningful Use Diagnoses (Choose all that apply): None applicable
== END 2018-12-09 11:16 | disposition home or self-care (01) ==
LOC: ED 14:39 → PCU 12-09 06:57
PROVIDERS: Psychiatry & Neurology Neurology; Admitting Provider Family Medicine; Emergency Provider Emergency Medicine; Family Provider Internal Medicine; PCP Internal Medicine; Referring Provider Family Medicine; Visit Provider Internal Medicine
DX: S09.8XXA Other specified injuries of head, initial encounter (principal); R47.81 Slurred speech; E03.9 Hypothyroidism, unspecified; E78.5 Hyperlipidemia, unspecified; I25.10 Atherosclerotic heart disease of native coronary artery without angina pectoris; F32.9 Major depressive disorder, single episode, unspecified; I10 Essential (primary) hypertension; F41.9 Anxiety disorder, unspecified; R29.810 Facial weakness; I45.10 Unspecified right bundle-branch block; G47.30 Sleep apnea, unspecified; R29.704 NIHSS score 4; E11.40 Type 2 diabetes mellitus with diabetic neuropathy, unspecified; I69.398 Other sequelae of cerebral infarction; I48.0 Paroxysmal atrial fibrillation; W05.0XXA Fall from non-moving wheelchair, initial encounter; I69.391 Dysphagia following cerebral infarction; I69.323 Fluency disorder following cerebral infarction; R13.10 Dysphagia, unspecified; Y93.9 Activity, unspecified; Y92.9 Unspecified place or not applicable; Z79.01 Long term (current) use of anticoagulants; Z95.1 Presence of aortocoronary bypass graft; Z79.82 Long term (current) use of aspirin; Z79.899 Other long term (current) drug therapy; Z99.3 Dependence on wheelchair
CPT/HCPCS: 36415; 70450; 70551; 71045; 72141; 80048; 81001; 82962; 84484; 85025; 85610; 85730; 87086; 87088; 92526; 92610; 93005; 96360; 96361; 97162; 97166; 99218; 99284; J7030; A4216; G0378

== ENCOUNTER 2019-01-21 15:36 | Emergency (ER) | payer MEDICARE, OTHER, SELFPAY ==
[2018-12-10 10:40] VITALS: BMI 27.6
[2019-01-21 15:38] VITALS: BP 157/103; PULSE 77; RESP 18; TEMP 36.6; O2SAT 96; BMI 28.2
--- NOTE | 2019-01-21 15:55 | CT_ITS ---
STUDY: CT BRAIN WITHOUT CONTRAST REASON FOR EXAM: Female, 78 years old. Head injury.. Patient on blood thinners RADIATION DOSAGE (If Supplied By Facility): CTDIvol = ( 60.81 ) mGy, DLP = ( 1021.47 ) mGycm TECHNIQUE: Transaxial CT imaging of the brain was performed without administration of intravenous contrast material. Individualized dose optimization techniques were used for this CT. COMPARISON: 12/08/2018 FINDINGS: Normal soft tissue structures. Normal calvarium. There is moderate cerebral atrophy with widening of the extra-axial spaces and ventricular dilatation. There are areas of decreased attenuation within the white matter tracts of the supratentorial brain, consistent with microvascular disease changes. Normal basal ganglia and thalami. Normal brainstem. There is mild cerebellar atrophy. There is no intracranial hemorrhage. There are no findings of an acute ischemic infarction. Normal visualized paranasal sinuses. CT/Brain/Head without Contrast IMPRESSION: Chronic involutional changes of the brain. Electronically Signed: Gilles Helms DO at 16:44 EDT Tel , Service support ,
--- NOTE | 2019-01-21 15:56 | ED.VISSUMM ---
- ER Visit Summary Date of Service: 01/21/19 Chief Complaint: Fall with head injury History of Present Illness: The patient is a 78 F who presents with a head injury that began after a fall today. Patient states this occurred approximately 2 hours prior to arrival. Patient states she tripped over a phone cord and fell. Patient states she hit her head on either the bed frame or the marble windowsill. Patient denies any loss of consciousness. Patient describes her pain as a heaviness. Patient denies any paresthesias or weakness. Patient denies any visual changes. Patient denies any nausea or vomiting. Patient is on Eliquis. Physical Examination: Vital signs are stable. Patient is afebrile. Patient is in no acute distress. Cranial nerves II through XII are intact. Strength is 5/5 bilaterally upper and lower extremities. There are no sensory deficits noted. Pupils are equal, round, and reactive to light bilaterally. Extraocular muscles are intact. There is no nystagmus noted. Oral mucosa is pink and moist. Neck is supple. Trachea is midline. There is no JVD noted. Heart was regular rate and rhythm. Lungs are clear and equal bilaterally. Abdomen is soft. Bowel sounds are normal. There is no tenderness. Test Results: CT scan of the brain was obtained. There is no acute intracranial abnormality. CBC and basic metabolic profile are within normal limits. PT with INR and PTT were normal. Emergency Department Course and Treatment: Patient felt better on reevaluation. Patient was instructed to follow-up with her primary care physician in 5 to 7 days. Patient understood and was agreeable with the plan. All questions were answered. Disposition: Discharge home Impression: Closed head injury This note was generated with [employer] original [employer] dictation software. It may contain incorrect words, spelling, and punctuation that were not noted in review of the chart prior to signing ED Disposition - Plan for ED Patient: Disposition: Home or Assisted Living Diagnosis: Closed head injury Instructions: FALL, Mechanical, HEAD INJURY, No Wake-Up (Adult) Referrals: Marisol Casas DO [Primary Care Provider] - 5-7 Days
[2019-01-21 16:45] LABS: Absolute Lymphocyte Count 1.26 X10^3/uL (0.83-4.51); Absolute Neutrophil Count 3.3 X10^3/uL (2.0-7.7); Basophil# 0.03 X10^3/uL; Basophil% 0.6 % (0-1); Eosinophil# 0.16 X10^3/uL; Hematocrit 39.1 % (37-47); Hemoglobin 13.2 g/dL (12.0-15.0); Lymphocyte # 1.26 X10^3/ul (4.0); Lymphocyte % 23.3 % (19-41); Mean Corp Hgb Conc 33.8 g/dL (32-36); Mean Corpuscular Hgb 33.1 pg (27.0-32.0); Mean Platelet Vol. 9.1 fl (6.2-12.0); Monocyte# 0.68 X10^3/uL; Monocyte% 12.6 % (0-10); NRBC Flagged by Analyzer 0 % (0-5); Neutrophil # 3.26 X10^3/uL (2.7-7.7); Neutrophil % 60.3 % (47-70); Platelet Count 306 K/mm3 (150-450); RBC Distribution Width CV 13.1 % (11.6-14.6); RBC Distribution Width SD 47.1 fl (35.1-43.9); Red Blood Count 3.99 M/mm3 (4.2-5.4); White Blood Count 5.4 K/mm3 (4.4-11.0)
[2019-01-21 16:52] LABS: Anion Gap 5 (5-15); BUN 8 mg/dL (7-18); BUN/Creat Ratio 9.4 RATIO (10-20); Calcium,Total 8.5 mg/dL (8.5-10.1); Chloride 105 mmol/L (98-107); Creatinine, Serum 0.85 mg/dL (0.55-1.02); EST Glomerular Filtration Rate 69 mL/min (>60); Est Glom Filt Rate - Afr Amer 83 mL/min (>60); Estimated Creatinine Clearance 53.04 ml/min; Glucose 85 mg/dL (74-106); Potassium 3.7 mmol/L (3.5-5.1); Sodium Level 141 mmol/L (136-145)
[2019-01-21 17:18] LABS: International Normalized Ratio 1.2; Prothrombin Time (Protime)PT. 15.3 SECONDS (11.7-14.9)
[2019-01-21 17:19] LABS: Partial Thromboplast Time 33.2 Seconds (24.1-36.2)
--- NOTE | 2019-01-21 18:14 | NURSING ---
CALLED [facility] FOR TRANSPORT. ETA IS 30 TO 45 MIN
[2019-01-21 18:35] VITALS: BP 166/92; PULSE 79; RESP 16; O2SAT 96
--- NOTE | 2019-01-21 18:40 | ED.RN ---
[address] and patient's daughter notified that patient was being d/c from the er.
== END 2019-01-21 18:42 | disposition home or self-care (01) ==
PROVIDERS: Emergency Provider Emergency Medicine; Family Provider Internal Medicine; PCP Internal Medicine
DX: S09.90XA Unspecified injury of head, initial encounter (principal); W18.09XA Striking against other object with subsequent fall, initial encounter; Y93.9 Activity, unspecified; Y92.9 Unspecified place or not applicable; I25.10 Atherosclerotic heart disease of native coronary artery without angina pectoris; Z86.73 Personal history of transient ischemic attack (TIA), and cerebral infarction without residual deficits; Z95.1 Presence of aortocoronary bypass graft; Z79.01 Long term (current) use of anticoagulants; Z79.899 Other long term (current) drug therapy
CPT/HCPCS: 70450; 80048; 85025; 85610; 85730; 99285; A4216

== ENCOUNTER 2019-03-13 18:56 | Inpatient (IN) | payer MEDICARE, OTHER, SELFPAY ==
[2019-03-13] VITALS (12 sets, daily range): BP systolic 123–141; BP diastolic 71–113; PULSE 61–74; RESP 16–20; TEMP 36.5–36.6; O2SAT 94–98; BMI 30.1; BMI 29.1
--- NOTE | 2019-03-13 19:08 | EKG12_ITS ---
Test Reason : STROKE Blood Pressure : / mmHG Vent. Rate : 074 BPM Atrial Rate : 074 BPM P-R Int : 168 ms QRS Dur : 146 ms QT Int : 438 ms P-R-T Axes : 029 -10 -07 degrees QTc Int : 486 ms Normal sinus rhythm Right bundle branch block Inferior infarct ,age undetermined Abnormal ECG Confirmed by VINCENT HONEYCUTT ([id number]), editor news RONNIE CAVAZOS ([id number]) on 03/22/2019 2:34:25 PM Referred By: Yony Martinez Confirmed By:VINCENT HONEYCUTT
--- NOTE | 2019-03-13 19:08 | CT_ITS ---
STUDY: CT BRAIN WITHOUT CONTRAST REASON FOR EXAM: Female, 78 years old. STROKE, SLURRED SPEECH, FACIAL DROOP, LEFT ARM WEAKNESS RADIATION DOSAGE (If Supplied By Facility): CTDIvol = ( 60.81 ) mGy, DLP = ( 1044.28 ) mGycm TECHNIQUE: Transaxial CT imaging of the brain was performed without administration of intravenous contrast material. Individualized dose optimization techniques were used for this CT. COMPARISON: 01/21/2019 FINDINGS: Normal soft tissue structures. Normal calvarium. There is mild cerebral atrophy with widening of the extra-axial spaces and ventricular dilatation. There are areas of decreased attenuation within the white matter tracts of the supratentorial brain as well as the central javi, consistent with microvascular disease changes. Normal basal ganglia and thalami. Normal brainstem. Normal cerebellum. There is no intracranial hemorrhage. There are no findings of an acute ischemic infarction. Normal visualized paranasal sinuses. CT/Brain/Head without Contrast IMPRESSION: 1. No acute intracranial hemorrhage or mass effect. 2. Central parenchymal volume loss. White matter changes that are nonspecific but most commonly associated with chronic small vessel ischemic disease. N.B. : The above information has been verbally conveyed by Holden Alberto MD (Brooks) to Lance Alvarez on 03/13/2019 19:24:17 (ET). Electronically Signed: Holden Alberto MD (Brooks) at 19:26 EDT , Service support ,
--- NOTE | 2019-03-13 19:10 | CM.ED ---
Social Work Responding to Stroke Alert, no family present. Will continue to follow as needed. Alyx MARCUM, CHECO
--- NOTE | 2019-03-13 19:10 | CT_ITS ---
STUDY: CTA HEAD AND NECK WITH CONTRAST REASON FOR EXAM: Female, 78 years old. Slurred speech, left arm weakness RADIATION DOSAGE (If Supplied By Facility): CTDIvol = ( 18.99 ) mGy, DLP = ( 557.26 ) mGycm TECHNIQUE: CT angiography was performed with a multi-detector CT scanner. Data acquisition was obtained from the skull base through the vertex following intravenous administration of 100ML IV Isovue 370. MIP images were reconstructed from the axial data set. Post-processing of the angiographic images was performed, with multiplanar reformation and 3D reconstruction. Degree of stenosis (when present) measured utilizing NASCET criteria. Individualized dose optimization techniques were used for this CT. COMPARISON: 10/31/2018 FINDINGS: Normal bilateral petrous carotid arteries. Normal right cavernous carotid artery with a normal supraclinoid bifurcation. Normal left cavernous carotid artery with a normal supraclinoid bifurcation. Normal right A1 segments of the anterior cerebral artery. There is hypoplastic development of the left A1 segment of the anterior cerebral arteries with an atretic but intact artery. Normal intact anterior communicating artery (ACOM). Normal bilateral A2 segments of the anterior cerebral arteries. Normal right M1 and M2 segments of the middle cerebral arteries, with a normal M1 bifurcation. Normal left M1 and M2 segments of the middle cerebral arteries, with a normal M1 bifurcation. There is non-visualization of the right posterior communicating artery (PCOM). There is non-visualization of the left posterior communicating artery (PCOM). Normal bilateral vertebral arteries. Normal basilar artery with a normal basilar bifurcation. The visualized bilateral superior cerebellar (SCA) arteries are normal. Normal bilateral P1, P2 and visualized P3 segments of the posterior cerebral arteries. There is no demonstrated aneurysm of the [place]. There is no demonstrated abnormality of the visualized brain. AORTIC ARCH: Sternal wires and mediastinal surgical clips compatible with prior CABG. Mild atherosclerosis of the aortic arch. Tortuosity of the brachiocephalic arteries with mild origin atherosclerosis but no hemodynamically significant stenosis. RIGHT CAROTID ARTERIES: Normal right common carotid artery (CCA). Mild atherosclerosis of the carotid bulb. Calcified and noncalcified plaque in the proximal ICA resulting in 45% luminal stenosis. There is atherosclerotic tortuous elongation of the cervical portion of the right internal carotid artery. Normal origin of the right external carotid artery (ECA). LEFT CAROTID ARTERIES: Normal left common carotid artery (CCA). Normal left common carotid bulb. Normal origin of the left internal carotid (ICA) artery without a hemodynamically significant stenosis. There is atherosclerotic tortuous elongation of the cervical portion of the left internal carotid artery. Normal origin of the left external carotid artery (ECA). VERTEBRAL ARTERIES: Normal bilateral vertebral arteries. CT/CTA Head AND Neck W/ Contrast IMPRESSION: 1. No large vessel occlusion/thrombus. No intracranial aneurysm. 2. Right carotid bulb and proximal ICA atherosclerosis, 45% stenosis, stable. N.B. : The above information has been verbally conveyed by Holden Alberto MD (Brooks) to Lance Alvarez on 03/13/2019 19:39:35 (ET). Electronically Signed: Holden Alberto MD (Brooks) at 19:40 EDT , Service support ,
--- NOTE | 2019-03-13 19:24 | RAD_ITS ---
STUDY: X-RAY CHEST REASON FOR EXAM: Female, 78 years old. Increased facial droop with slurred speech TECHNIQUE: AP COMPARISON: 12/08/2018 FINDINGS: EKG leads project over the chest. The lungs are clear and expanded. There is no demonstrated pleural abnormality. Normal size heart. Sternal wires and mediastinal surgical clips compatible with prior CABG. Normal mediastinum and valerie. Normal visualized pulmonary arteries. There is atherosclerotic tortuosity of the aortic arch and descending thoracic aorta. Normal visualized thoracic spine. Normal visualized ribs, clavicles, and shoulders. There is no demonstrated abnormality of the visualized soft tissue structures of the upper abdomen. RAD/Chest 1 View IMPRESSION: No airspace consolidation or pleural effusion. Electronically Signed: Holden Alberto MD (Brooks) at 19:44 EDT , Service support ,
[2019-03-13 19:57] LABS: Absolute Lymphocyte Count 1.53 X10^3/uL (0.83-4.51); Absolute Neutrophil Count 3.3 X10^3/uL (2.0-7.7); Basophil# 0.03 X10^3/uL; Basophil% 0.5 % (0-1); Eosinophils% 1.8 % (0-5); Hematocrit 38.7 % (37-47); Hemoglobin 12.9 g/dL (12.0-15.0); Lymphocyte # 1.53 X10^3/ul (4.0); Mean Corp Hgb Conc 33.3 g/dL (32-36); Mean Corpuscular Hgb 32.4 pg (27.0-32.0); Mean Corpuscular Volume 97.2 fL (81-99); Monocyte# 0.66 X10^3/uL; Monocyte% 11.6 % (0-10); NRBC Flagged by Analyzer 0 % (0-5); Neutrophil # 3.33 X10^3/uL (2.7-7.7); Neutrophil % 58.7 % (47-70); Platelet Count 294 K/mm3 (150-450); RBC Distribution Width CV 13.6 % (11.6-14.6); RBC Distribution Width SD 48.8 fl (35.1-43.9); Red Blood Count 3.98 M/mm3 (4.2-5.4); White Blood Count 5.7 K/mm3 (4.4-11.0)
[2019-03-13 20:01] LABS: International Normalized Ratio 1.2; Prothrombin Time (Protime)PT. 14.8 SECONDS (11.7-14.9)
[2019-03-13 20:02] LABS: Partial Thromboplast Time 32.4 Seconds (24.1-36.2)
[2019-03-13 20:27] LABS: Anion Gap 3 (5-15); BUN 12 mg/dL (7-18); BUN/Creat Ratio 12.8 RATIO (10-20); Calcium,Total 8.5 mg/dL (8.5-10.1); Chloride 105 mmol/L (98-107); Creatinine, Serum 0.94 mg/dL (0.55-1.02); EST Glomerular Filtration Rate 61 mL/min (>60); Est Glom Filt Rate - Afr Amer 74 mL/min (>60); Estimated Creatinine Clearance 49.76 ml/min; Glucose 93 mg/dL (74-106); Potassium 4.7 mmol/L (3.5-5.1); Sodium Level 136 mmol/L (136-145)
--- NOTE | 2019-03-13 21:01 | ED.VISSUMM ---
- ER Visit Summary Date of Service: 03/13/19 Chief Complaint: Possible stroke History of Present Illness: The patient is a 78 F who presents with a possible stroke that began tonight. Patient began having symptoms approximately 45 minutes prior to arrival. Patient was apparently having slurred speech and weakness of her left upper extremity. Patient does have a history of prior CVA x4 with residual difficulty speaking. Patient currently is taking Eliquis. Patient denies any chest pain or shortness of breath. Patient denies any nausea or vomiting. Patient denies any headaches. Family states the patient is acting more confused than usual. Family also states patient is having some visual hallucinations. Family states this is how she typically acts whenever she has an infection. Physical Examination: Vital signs are stable. Patient is afebrile. Patient is in no acute distress. Cranial nerves II through XII are intact. Oral mucosa is pink and slightly dry. Tongue is midline. Uvula elevates symmetrically. Neck is supple. Trachea is midline. There is no JVD noted. Heart was regular rate and rhythm. Lungs are clear and equal bilaterally. Abdomen is soft. Bowel sounds are normal. There is no tenderness. There is no guarding noted. Strength is 5/5 bilateral knee upper and lower extremities. There are no sensory deficits noted. There is a mild pronator drift on the left upper extremity. [id number] is intact. Deep tendon reflexes are 2+/4 bilateral knee upper and lower extremities. Patient has an NIH score of 2, 1 for the slurred speech and 1 for the pronator drift of the left upper extremity. Test Results: EKG shows normal sinus rhythm with a rate of 74. There is a right bundle branch block pattern noted. There are no acute ST or T wave changes. This was unchanged compared to previous EKG dated 12/08/2018. CT scan of the brain was obtained and does not show any acute intracranial abnormality. CTA of the head neck was obtained. There is no large vessel occlusion or thrombus. There is no intracranial aneurysm. There is right carotid bulb and proximal internal carotid artery atherosclerosis with approximately 45% stenosis which is stable. Portable chest x-ray was obtained. There is no acute cardiopulmonary process. These were interpreted by the radiologist and myself. Urinalysis shows leukocyte esterase of 100 with 5-10 white blood cells but 3+ bacteria. Urine culture was obtained. CBC and basic metabolic profile were normal. Troponin was normal. PT with INR and PTT were normal. Emergency Department Course and Treatment: Stroke team was called prehospital. Case was discussed with the stroke neurologist at [facility]. He does not think that the patient is a TPA candidate. He recommended MRI and MRA of the brain. This is unable to be obtained tonight. Patient was started on Cipro because family states that the patient has been on Cipro in the past which has helped. Patient has an allergy to penicillins which causes tongue swelling and hives therefore Rocephin was not used. Case was discussed with the hospitalist. He will admit the patient to PCU for observation. Disposition: Admit to hospital Impression: 1. Altered mental status 2. Urinary tract infection 3. Critical care time 30 to 74 minutes This note was generated with [employer] dictation software. It may contain incorrect words, spelling, and punctuation that were not noted in review of the chart prior to signing ED Disposition - Plan for ED Patient: Disposition: Acute Care Hospital [facility] Diagnosis: Altered mental status, unspecified, Urinary tract infection Referrals: Marisol Casas DO [Primary Care Provider] -
--- NOTE | 2019-03-13 21:52 | ED.RN ---
When the family arrived they mentioned to this nurse that they were concerned the pt had a uti, family member stated they are treating her with a different antibiotic than usual and its not working that's why shes more confused, she has a uti. MD Alvarez made aware no further orders at this time.
--- NOTE | 2019-03-13 21:59 | CM.ED ---
Social Work Patient family now present. Patient family stating to be frustrated with time that it is taking for the doctor to follow up with patient in room. Patient family stating that the test results must be back. This social media assistant updating Dr. Alvarez on patient family frustration, Dr. Alvarez stating to have just gotten all the test results back and plans to see patient next. This social media assistant updated family on this. Alyx MARCUM, CHECO
[2019-03-13 22:27] LABS: Mucous, Urine 0 SEEN /hpf (<or=2+); Red Blood Cells-Urine 0 SEEN /hpf (0-5)
[2019-03-13 22:29] LABS: Color, Urine Yellow (Yellow); Glucose, Dipstick Normal (Normal); Ketone-Dipstick Negative (Negative); Leukocyte Esterase-Dipstick 100 /ul (Negative); Nitrite-Dipstick Negative (Negative); Occult Blood-Urine Negative /ul (Negative); Protein-Dipstick Negative (Negative); Specific Gravity, Urine 1.015 (1.002-1.030); Urine Bilirubin Dipstick Negative (Negative); Urine Clarity Cloudy (Clear); Urine Urobilinogen Normal (Normal)
[2019-03-13 22:36] LABS: Squamous Epithelial Cells - UA 0-5 SEEN /hpf (5-10); White Blood Cells 5-10 SEEN /hpf (0-5)
[2019-03-13 22:37] LABS: Amorphous Sediment 1+; Bacteria 3+ /hpf (None Seen)
--- NOTE | 2019-03-13 23:00 | HP.PCM_ITS ---
History of Present Illness The patient is a 78 year old F [] Past Medical History Past Medical History (Chronic Problems): Chronic Problems (Last Reviewed 12/10/18 @ 10:40 by Pastora Weber) Fall (Chronic) Anxiety (Chronic) Diabetes mellitus (Chronic) Sleep apnea (Chronic) Coronary artery disease (Chronic) Depression (Chronic) Stented coronary artery (Chronic 04/13/15) IVUS left main 06/07/2014, PCI-FAREED Prox & Mid LAD S/P CABG x 2 (Chronic 06/11/14) CABG X 2 CAN-LAD, SVG-CX @ [facility] per Dr. Sutton Atherosclerotic heart disease of [place] coronary artery without angina pectoris (Chronic) CABG X 2 CAN-LAD, SVG-CX 06/11/2014 @ [facility] per Dr. Sutton Stenosis of right carotid artery (Chronic) Right bundle branch block (Chronic) Hyperlipidemia (Chronic) Hypertension (Chronic) Hypothyroidism (Chronic) CVA (cerebral vascular accident) (Chronic 10/31/18) 10/31/18: MRI demonstrated tiny acute right pontine infarct 01/24/17:MRI demonstrated an acute infarct in the right thalamus and left parietal region Medical History: Medical History (Last Reviewed 12/10/18 @ 10:40 by Pastora Weber) Atherosclerotic heart disease of [place] coronary artery without angina pectoris (Chronic) I25.10 CABG X 2 CAN-LAD, SVG-CX 06/11/2014 @ [facility] per Dr. Sutton Stenosis of right carotid artery (Chronic) I65.21 Right bundle branch block (Chronic) I45.10 Hyperlipidemia (Chronic) E78.5 Hypertension (Chronic) I10 Hypothyroidism (Chronic) E03.9 CVA (cerebral vascular accident) (Chronic) Onset Date: 10/31/18 I63.9 10/31/18: MRI demonstrated tiny acute right pontine infarct 01/24/17:MRI demonstrated an acute infarct in the right thalamus and left parietal region Paroxysmal atrial fibrillation (Inactive) I48.0 patient had post op A-FIB (post CABG) in 2013 no further episodes Allergies atorvastatin Allergy (Verified 01/21/19 15:40) Other muscle weakness codeine Allergy (Verified 01/21/19 15:40) Unknown levofloxacin [From Levaquin] Allergy (Verified 01/21/19 15:40) Pain in joints Penicillins Allergy (Verified 01/21/19 15:40) Swelling tongue swells and hives pravastatin Allergy (Verified 01/21/19 15:40) myalgia Sulfa (Sulfonamide Antibiotics) Allergy (Verified 01/21/19 15:40) Swelling tongue swell and hives Home Medications: Ambulatory Orders Medication Instructions Recorded Acetaminophen [Tylenol] 1,000 mg PO Q8H PRN PRN tab 11/20/18 Potassium Chloride [K-Dur] 10 meq PO DAILY tab 11/20/18 Venlafaxine XR [Effexor Xr] 150 mg PO DAILY cap 11/20/18 buPROPion XL [Wellbutrin Xl] 150 mg PO DAILY tablet.xl 11/20/18 ALPRAZolam [Xanax] 0.5 mg PO QHS 12/08/18 Apixaban [Eliquis] 5 mg PO BID 12/08/18 Aspirin [Aspirin, Baby] 81 mg PO DAILY@0812/08/18 Levothyroxine [Synthroid] 75 mcg PO DAILY@59912/08/18 Lisinopril [Zestril] 10 mg PO DAILY 12/08/18 Omeprazole 20 mg PO DAILY 03/13/19 Trimethoprim [Trimpex] 100 mg PO DAILY 03/13/19 Surgical History: Surgical History (Last Reviewed 12/10/18 @ 10:40 by Pastora Weber) Stented coronary artery (Chronic) Onset Date: 04/13/15 Z95.5 IVUS left main 06/07/2014, PCI-FAREED Prox & Mid LAD S/P CABG x 2 (Chronic) Onset Date: 06/11/14 Z95.1 CABG X 2 CAN-LAD, SVG-CX @ [facility] per Dr. Sutton Surgical History: arthroscopy, knee, - - CABG x 2, PCI prior, ankle surgery, renal surgery, TKR. Psychiatric History: Anxiety, Depression [employer] History: No pertinent [employer] history Smoking Status: Unknown if ever smoked - *Family History Maternal Family History: Family History (Last Reviewed 12/10/18 @ 10:40 by Pastora Weber) Father Heart disease Sister Cancer Uncle CAD (coronary artery disease) History Items: Stroke Paternal Family History: Family History (Last Reviewed 12/10/18 @ 10:40 by Pastora Weber) Father Heart disease Sister Cancer Uncle CAD (coronary artery disease) History Items: Heart Disease Sibling Family History: Family History (Last Reviewed 12/10/18 @ 10:40 by Pastora Weber) Father Heart disease Sister Cancer Uncle CAD (coronary artery disease) History Items: Cancer - Physical Exam Vital Signs Temp Pulse Resp BP Pulse Ox 97.7 F L 65 19 H 127/72 H 95 03/13/19 18:58 03/13/19 22:30 03/13/19 22:30 03/13/19 22:30 03/13/19 22:30 Oxygen Flow Rate (L/min) 2 Oxygen Delivery Method Nasal Cannula Weight: 89.9 kg Body Mass Index (BMI) 30.1 Finger Stick Blood Glucose 116 Laboratory Tests Past 24 Hrs 03/13/19 03/13/19 03/13/19 18:57 18:57 18:57 WBC 5.7 RBC 3.98 L Hgb 12.9 Hct 38.7 MCV 97.2 MCH 32.4 H MCHC 33.3 RDW Std Deviation 48.8 H RDW Coeff of [place] 13.6 Plt Count 294 MPV 10.0 Immature Gran % (Auto) 0.400 Neut % (Auto) 58.7 Lymph % (Auto) 27.0 Oliver % (Auto) 11.6 H Eos % (Auto) 1.8 Baso % (Auto) 0.5 Absolute Neuts (auto) 3.3 Absolute Lymphs (auto) 1.53 Nucleated RBC % 0 PT 14.8 INR 1.2 APTT 32.4 Sodium 136 Potassium 4.7 Chloride 105 Carbon Dioxide 28.0 Anion Gap 3 L BUN 12 Creatinine 0.94 Estim Creat Clear Calc 49.76 Est GFR (MDRD) Af Amer 74 Est GFR (MDRD) Non-Af 61 BUN/Creatinine Ratio 12.8 Glucose 93 Calcium 8.5 Troponin I < 0.015 Urine Color Urine Clarity Urine pH Ur Specific [place] Urine Protein Urine Glucose (UA) Urine Ketones Urine Occult Blood Urine Nitrite Urine Bilirubin Urine Urobilinogen Ur Leukocyte Esterase Urine RBC Urine WBC Ur Squamous Epith Cells Amorphous Sediment Urine Bacteria Urine Mucus 03/13/19 22:20 WBC RBC Hgb Hct MCV MCH MCHC RDW Std Deviation RDW Coeff of [place] Plt Count MPV Immature Gran % (Auto) Neut % (Auto) Lymph % (Auto) Oliver % (Auto) Eos % (Auto) Baso % (Auto) Absolute Neuts (auto) Absolute Lymphs (auto) Nucleated RBC % PT INR APTT Sodium Potassium Chloride Carbon Dioxide Anion Gap BUN Creatinine Estim Creat Clear Calc Est GFR (MDRD) Af Amer Est GFR (MDRD) Non-Af BUN/Creatinine Ratio Glucose Calcium Troponin I Urine Color Yellow Urine Clarity Cloudy Urine pH 6.0 Ur Specific [place] 1.015 Urine Protein Negative Urine Glucose (UA) Normal Urine Ketones Negative Urine Occult Blood Negative Urine Nitrite Negative Urine Bilirubin Negative Urine Urobilinogen Normal Ur Leukocyte Esterase 100 H Urine RBC 0 SEEN Urine WBC 5-10 SEEN Ur Squamous Epith Cells 0-5 SEEN Amorphous Sediment 1+ Urine Bacteria 3+ Urine Mucus 0 SEEN Assessment/Plan All Active Problems (Last Reviewed 12/10/18 @ 10:40 by Pastora Weber) Closed head injury (Acute) custodial current use of anticoagulant (Acute) Slurred speech (Acute) Internuclear ophthalmoplegia of right eye (Acute) CVA (cerebral vascular accident) (Acute)
--- NOTE | 2019-03-13 23:02 | HP.PCM_ITS ---
Problem List (1) Stroke-like symptoms Status: Acute (2) Urinary tract infection Status: Acute (3) Closed head injury Status: Inactive (4) Internuclear ophthalmoplegia of right eye Status: Inactive (5) CVA (cerebral vascular accident) Status: Inactive Qualifiers: CVA mechanism: unspecified Qualified Code(s): I63.9 - Cerebral infarction, unspecified History of Present Illness Date of Admission: 03/13/19 Chief Complaint: stroke-like symptoms The patient is a 78 year old F with is a resident of a group home and with a significant history of HTN; HLD, CVA; and paroxysmal A. fib presenting to the emergency department presenting with strokelike symptoms for which reason a stroke alert was called enroute to the Hospital. Her strokelike symptoms include slurred speech; increased facial droop; and left arm drift. Emergent department doctor reported an NIH of 2 which included aphasia; and left pronator drift. Reportedly the patient was confused and she was hallucinating. Per family patient symptoms are consistent with previous history of UTI. Per discussion with emergency department doctor; tele neurologist recommended magnetic resonance imaging. At the emergency department patient's urinalysis was abnormal. Patient was started on ciprofloxacin. Review of group home records show that urine collected on 03/10/2019 was abnormal. Before patient came to the hospital she was on Trimethoprim. Reportedly in the past patient's UTI has been treated with ciprofloxacin. Past Medical History Past Medical History (Chronic Problems): Chronic Problems (Last Reviewed 03/13/19 @ 23:57 by Yony Martinez MD) Fall (Chronic) Anxiety (Chronic) Diabetes mellitus (Chronic) Sleep apnea (Chronic) Coronary artery disease (Chronic) Depression (Chronic) Stented coronary artery (Chronic 04/13/15) IVUS left main 06/07/2014, PCI-FAREED Prox & Mid LAD S/P CABG x 2 (Chronic 06/11/14) CABG X 2 CAN-LAD, SVG-CX @ [facility] per Dr. Sutton Atherosclerotic heart disease of platinum coronary artery without angina pectoris (Chronic) CABG X 2 CAN-LAD, SVG-CX 06/11/2014 @ [facility] per Dr. Sutton Stenosis of right carotid artery (Chronic) Right bundle branch block (Chronic) Hyperlipidemia (Chronic) Hypertension (Chronic) Hypothyroidism (Chronic) CVA (cerebral vascular accident) (Chronic 10/31/18) 10/31/18: MRI demonstrated tiny acute right pontine infarct 01/24/17:MRI demonstrated an acute infarct in the right thalamus and left parietal region Medical History: Medical History (Last Reviewed 03/14/19 @ 00:03 by Yony Martinez MD) Atherosclerotic heart disease of platinum coronary artery without angina pectoris (Chronic) I25.10 CABG X 2 CAN-LAD, SVG-CX 06/11/2014 @ [facility] per Dr. Sutton Stenosis of right carotid artery (Chronic) I65.21 Right bundle branch block (Chronic) I45.10 Hyperlipidemia (Chronic) E78.5 Hypertension (Chronic) I10 Hypothyroidism (Chronic) E03.9 CVA (cerebral vascular accident) (Chronic) Onset Date: 10/31/18 I63.9 10/31/18: MRI demonstrated tiny acute right pontine infarct 01/24/17:MRI demonstrated an acute infarct in the right thalamus and left parietal region Paroxysmal atrial fibrillation (Inactive) I48.0 patient had post op A-FIB (post CABG) in 2013 no further episodes Allergies atorvastatin Allergy (Verified 01/21/19 15:40) Other muscle weakness codeine Allergy (Verified 01/21/19 15:40) Unknown levofloxacin [From Levaquin] Allergy (Verified 01/21/19 15:40) Pain in joints Penicillins Allergy (Verified 01/21/19 15:40) Swelling tongue swells and hives pravastatin Allergy (Verified 01/21/19 15:40) myalgia Sulfa (Sulfonamide Antibiotics) Allergy (Verified 01/21/19 15:40) Swelling tongue swell and hives Home Medications: Ambulatory Orders Medication Instructions Recorded Acetaminophen [Tylenol] 1,000 mg PO Q8H PRN PRN tab 11/20/18 Potassium Chloride [K-Dur] 10 meq PO DAILY tab 11/20/18 Venlafaxine XR [Effexor Xr] 150 mg PO DAILY cap 11/20/18 buPROPion XL [Wellbutrin Xl] 150 mg PO DAILY tablet.xl 11/20/18 ALPRAZolam [Xanax] 0.5 mg PO QHS 12/08/18 Apixaban [Eliquis] 5 mg PO BID 12/08/18 Aspirin [Aspirin, Baby] 81 mg PO DAILY@0800 12/08/18 Levothyroxine [Synthroid] 75 mcg PO DAILY@0600 12/08/18 Lisinopril [Zestril] 10 mg PO DAILY 12/08/18 Omeprazole 20 mg PO DAILY 03/13/19 Trimethoprim [Trimpex] 100 mg PO DAILY 03/13/19 Surgical History: Surgical History (Last Reviewed 03/14/19 @ 00:03 by Yony Martinez MD) Stented coronary artery (Chronic) Onset Date: 04/13/15 Z95.5 IVUS left main 06/07/2014, PCI-FAREED Prox & Mid LAD S/P CABG x 2 (Chronic) Onset Date: 06/11/14 Z95.1 CABG X 2 CAN-LAD, SVG-CX @ [facility] per Dr. Sutton Surgical History: arthroscopy, knee, - - CABG x 2, PCI prior, ankle surgery, renal surgery, TKR. 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 [facility]: [facility] Smoking Status: Never smoker Alcohol: None - *Family History Maternal Family History: Family History (Last Reviewed 03/14/19 @ 00:03 by Yony Martinez MD) Father Heart disease Sister Cancer Uncle CAD (coronary artery disease) History Items: Stroke Paternal Family History: Family History (Last Reviewed 03/14/19 @ 00:03 by Yony Martinez MD) Father Heart disease Sister Cancer Uncle CAD (coronary artery disease) History Items: Heart Disease Sibling Family History: Family History (Last Reviewed 03/14/19 @ 00:03 by Yony Martinez MD) Father Heart disease Sister Cancer Uncle CAD (coronary artery disease) History Items: Cancer Review of Systems Unable to obtain accurate/complete ROS d/t: confusion VTE Information - Inpt Only VTE Present on Admission: No VTE Mechan Device Prophylaxis: None VTE Pharm Prophylaxis ordered?: No Reason prophylaxis not ordered:: Treatment Not Indicated - Home Eliquis continued for A. fib. Patient Problems: Active and Suspected Problems (Last Reviewed 03/13/19 @ 23:57 by Yony Martinez MD) Altered mental status, unspecified (Acute) Urinary tract infection (Acute) Stroke-like symptoms (Acute) - Physical Exam General: Alert, Confused HEENT: Atraumatic, PERRLA, EOMI, Normocephalic Neck: Supple, No JVD, Negative Carotid Bruits Lungs: Rhonchi - mild Cardiovascular: Regular rate, No murmurs Abdomen: Bowel Sounds Present, Soft, Non Tender Extremities: No clubbing Skin: No rashes, No breakdown Musculoskeletal: No Tenderness to Palpation of Joints or Extremities Neurological: Cranial nerves II-XII grossly intact, Deep Tendon Reflexes 2+/4 and Symmetrical, Motor Exam 5/5 strength throughout, Slurred Speech, Muscle tone normal, - - Slight dysmetria with [id number] test of left upper extremity. Psych/Mental Status: Normal Affect, Appropriate Vital Signs Temp Pulse Resp BP Pulse Ox 97.7 F L 65 19 H 127/72 H 95 03/13/19 18:58 03/13/19 22:30 03/13/19 22:30 03/13/19 22:30 03/13/19 22:30 Oxygen Flow Rate (L/min) 2 Oxygen Delivery Method Nasal Cannula Weight: 89.9 kg Body Mass Index (BMI) 30.1 Finger Stick Blood Glucose 116 Laboratory Tests Past 24 Hrs 03/13/19 03/13/19 03/13/19 18:57 18:57 18:57 WBC 5.7 RBC 3.98 L Hgb 12.9 Hct 38.7 MCV 97.2 MCH 32.4 H MCHC 33.3 RDW Std Deviation 48.8 H RDW Coeff of Juany 13.6 Plt Count 294 MPV 10.0 Immature Gran % (Auto) 0.400 Neut % (Auto) 58.7 Lymph % (Auto) 27.0 Hinds % (Auto) 11.6 H Eos % (Auto) 1.8 Baso % (Auto) 0.5 Absolute Neuts (auto) 3.3 Absolute Lymphs (auto) 1.53 Nucleated RBC % 0 PT 14.8 INR 1.2 APTT 32.4 Sodium 136 Potassium 4.7 Chloride 105 Carbon Dioxide 28.0 Anion Gap 3 L BUN 12 Creatinine 0.94 Estim Creat Clear Calc 49.76 Est GFR (MDRD) Af Amer 74 Est GFR (MDRD) Non-Af 61 BUN/Creatinine Ratio 12.8 Glucose 93 Calcium 8.5 Troponin I < 0.015 Urine Color Urine Clarity Urine pH Ur Specific [place] Urine Protein Urine Glucose (UA) Urine Ketones Urine Occult Blood Urine Nitrite Urine Bilirubin Urine Urobilinogen Ur Leukocyte Esterase Urine RBC Urine WBC Ur Squamous Epith Cells Amorphous Sediment Urine Bacteria Urine Mucus 03/13/19 22:20 WBC RBC Hgb Hct MCV MCH MCHC RDW Std Deviation RDW Coeff of Juany Plt Count MPV Immature Gran % (Auto) Neut % (Auto) Lymph % (Auto) Hinds % (Auto) Eos % (Auto) Baso % (Auto) Absolute Neuts (auto) Absolute Lymphs (auto) Nucleated RBC % PT INR APTT Sodium Potassium Chloride Carbon Dioxide Anion Gap BUN Creatinine Estim Creat Clear Calc Est GFR (MDRD) Af Amer Est GFR (MDRD) Non-Af BUN/Creatinine Ratio Glucose Calcium Troponin I Urine Color Yellow Urine Clarity Cloudy Urine pH 6.0 Ur Specific [place] 1.015 Urine Protein Negative Urine Glucose (UA) Normal Urine Ketones Negative Urine Occult Blood Negative Urine Nitrite Negative Urine Bilirubin Negative Urine Urobilinogen Normal Ur Leukocyte Esterase 100 H Urine RBC 0 SEEN Urine WBC 5-10 SEEN Ur Squamous Epith Cells 0-5 SEEN Amorphous Sediment 1+ Urine Bacteria 3+ Urine Mucus 0 SEEN Assessment/Plan All Active Problems (Last Reviewed 03/13/19 @ 23:57 by Yony Martinez MD) correction current use of anticoagulant (Acute) Slurred speech (Acute) Altered mental status, unspecified (Acute) Urinary tract infection (Acute) Stroke-like symptoms (Acute) The patient is a 78 year old F with is a resident of a group home and with a significant history of HTN; HLD, CVA; and paroxysmal A. fib presented to the emergency department presenting with strokelike symptoms and with abnormal urinalysis. Stroke-like symptoms NINDS NIH Scale was 2 CT of the head showed no acute intracranial pathology. Head and neck CTA showed right carotid bulb and proximal ICA atherosclerosis, 45% stenosis, stable. Will order MRI of brain. Blood glucose at the emergency department was within normal range Physical therapy, occupational therapy and speech therapy to work with patient. N.p.o. until bedside swallow eval. Daily aspirin continued. Of note patient is allergic to atorvastatin; and pravastatin. Statin was not started. Permissive hypertension. Control blood pressure with labetalol for systolic blood pressure of more than 220 or diastolic blood pressure of more than 120. Urinary tract infection Hold home trimethoprim Patient was given ciprofloxacin IV at the emergency department. We will continue ciprofloxacin. Patient has penicillin allergy of swelling. Urine cultures are pending Blood cultures are pending. CAD status post CABG and stent Aspirin continued Paroxysmal A. fib On Presentation patient was in sinus rhythm Eliquis continued Hypertension On presentation blood pressure was within goal. Hold lisinopril because of permissive hypertension. Labetalol as needed as above. GERD Omeprazole continued Depression/anxiety Effexor continued Xanax continued DVT prophylaxis Not indicated since patient is on Eliquis; Eliquis continued. Code Visit OBSV E&M: 78348 Initial observation care L3
[2019-03-13] MEDS: Ciprofloxacin 400 MG/200 ML BAG 200 MG IV (23:08)
--- NOTE | 2019-03-13 23:54 | ED.RN ---
[facility] WAS [facility] THE [facility]'S ADMISSION.
[2019-03-14] VITALS (13 sets, daily range): BP systolic 128–142; BP diastolic 68–88; PULSE 61–74; RESP 16–18; TEMP 36.5–36.6; O2SAT 92–97; BMI 29.1
[2019-03-14 06:09] LABS: Cholesterol 178 mg/dL (200); High Density Lipoprotein 44 mg/dL; Triglycerides 61 mg/dL; Very Low Density Lipoprotein 12 mg/dL (5-40)
--- NOTE | 2019-03-14 08:13 | PCM.PROGNOTE ---
Patient Problems: Active and Suspected Problems (Last Reviewed 03/14/19 @ 00:03 by Yony Martinez MD) Urinary tract infection (Acute) Stroke-like symptoms (Acute) Subjective: Chief complaint: Follow-up after admission for strokelike symptoms and probable acute cystitis. Patient seen and examined. No acute events overnight. She is disoriented to time, knows his full name and knows where she is at. Reportedly, she is confused at baseline but her family thinks that she is more confused than usual. She was admitted from senior care because of slurred speech and left arm drift patient had a history of strokes in the past and she does have some dysarthria to start with. Today, she is still having slurred speech but she denies any left arm weakness, numbness or tingling. She denies chest pain or shortness of breath. Her vital signs are stable. - Physical Exam General: Alert, Cooperative, No apparent distress, Disoriented HEENT: Atraumatic, PERRLA, EOMI, Normocephalic Oral: Moist Mucosa, No Gingival or Mucosal Lesions/ Ulcerations Neck: Supple, No JVD, Negative Carotid Bruits, Trachea Midline, Thyroid Normal Size and Texture Lungs: Clear to auscultation, Normal air movement, No rhonchi, No wheeze, No rales, Diminished Cardiovascular: Regular rate, Regular Rhythm, Normal S1, Normal S2, PMI Normal Abdomen: Bowel Sounds Present, Soft, Non Tender, Non-Distended, No Hepato-splenomegaly Extremities: No clubbing, No cyanosis, No edema Skin: No rashes, No breakdown Lymphatic: No Cervical, Supraclavicular, or Inguinal Adenopathy Neurological: Cranial nerves II-XII grossly intact, Motor Exam 5/5 strength throughout Psych/Mental Status: Normal Affect, Appropriate Vital Signs Temp Pulse Resp BP Pulse Ox 97.8 F 66 18 130/82 H 95 03/14/19 07:45 03/14/19 07:45 03/14/19 07:45 03/14/19 07:45 03/14/19 07:45 Oxygen Flow Rate (L/min) 2 Oxygen Delivery Method Room Air Weight: 186 lb 4.65 oz Body Mass Index (BMI) 29.1 Finger Stick Blood Glucose 116 Intake and Output for Last 24 Hours 03/12/19 03/13/19 03/14/19 23:59 23:59 23:59 Intake Total 200 / 200 Output Total 0 / 0 Balance 200 / 200 Laboratory Tests Past 24 Hrs 03/13/19 03/13/19 03/13/19 18:57 18:57 18:57 WBC 5.7 RBC 3.98 L Hgb 12.9 Hct 38.7 MCV 97.2 MCH 32.4 H MCHC 33.3 RDW Std Deviation 48.8 H RDW Coeff of Juany 13.6 Plt Count 294 MPV 10.0 Immature Gran % (Auto) 0.400 Neut % (Auto) 58.7 Lymph % (Auto) 27.0 Swisher % (Auto) 11.6 H Eos % (Auto) 1.8 Baso % (Auto) 0.5 Absolute Neuts (auto) 3.3 Absolute Lymphs (auto) 1.53 Nucleated RBC % 0 PT 14.8 INR 1.2 APTT 32.4 Sodium 136 Potassium 4.7 Chloride 105 Carbon Dioxide 28.0 Anion Gap 3 L BUN 12 Creatinine 0.94 Estim Creat Clear Calc 49.76 Est GFR (MDRD) Af Amer 74 Est GFR (MDRD) Non-Af 61 BUN/Creatinine Ratio 12.8 Glucose 93 Calcium 8.5 Troponin I < 0.015 Triglycerides Cholesterol LDL Cholesterol VLDL Cholesterol HDL Cholesterol Urine Color Urine Clarity Urine pH Ur Specific [place] Urine Protein Urine Glucose (UA) Urine Ketones Urine Occult Blood Urine Nitrite Urine Bilirubin Urine Urobilinogen Ur Leukocyte Esterase Urine RBC Urine WBC Ur Squamous Epith Cells Amorphous Sediment Urine Bacteria Urine Mucus 03/13/19 03/14/19 03/14/19 22:20 00:07 05:00 WBC RBC Hgb Hct MCV MCH MCHC RDW Std Deviation RDW Coeff of Juany Plt Count MPV Immature Gran % (Auto) Neut % (Auto) Lymph % (Auto) [place] % (Auto) Eos % (Auto) Baso % (Auto) Absolute Neuts (auto) Absolute Lymphs (auto) Nucleated RBC % PT INR APTT Sodium Potassium Chloride Carbon Dioxide Anion Gap BUN Creatinine Estim Creat Clear Calc Est GFR (MDRD) Af Amer Est GFR (MDRD) Non-Af BUN/Creatinine Ratio Glucose Calcium Troponin I < 0.015 Triglycerides 61 Cholesterol 178 LDL Cholesterol 122 VLDL Cholesterol 12 HDL Cholesterol 44 Urine Color Yellow Urine Clarity Cloudy Urine pH 6.0 Ur Specific [place] 1.015 Urine Protein Negative Urine Glucose (UA) Normal Urine Ketones Negative Urine Occult Blood Negative Urine Nitrite Negative Urine Bilirubin Negative Urine Urobilinogen Normal Ur Leukocyte Esterase 100 H Urine RBC 0 SEEN Urine WBC 5-10 SEEN Ur Squamous Epith Cells 0-5 SEEN Amorphous Sediment 1+ Urine Bacteria 3+ Urine Mucus 0 SEEN Clinical Impression(s) from Imaging Studies Brain CT 03/13/19 19:08 IMPRESSION: 1. No acute intracranial hemorrhage or mass effect. 2. Central parenchymal volume loss. White matter changes that are nonspecific but most commonly associated with chronic small vessel ischemic disease. N.B. : The above information has been verbally conveyed by Holden Alberto MD (Brooks) to Lance Alvarez on 03/13/2019 19:24:17 (ET). Electronically Signed: Holden Alberto MD (Brooks) at 19:26 EDT , Service support , Head/Neck CTA 03/13/19 19:10 IMPRESSION: 1. No large vessel occlusion/thrombus. No intracranial aneurysm. 2. Right carotid bulb and proximal ICA atherosclerosis, 45% stenosis, stable. N.B. : The above information has been verbally conveyed by Holden Alberto MD (Brooks) to Lance Alvarez on 03/13/2019 19:39:35 (ET). Electronically Signed: Holden Alberto MD (Brooks) at 19:40 EDT , Service support , Chest X-Ray 03/13/19 19:24 IMPRESSION: No airspace consolidation or pleural effusion. Electronically Signed: Holden Alberto MD (Brooks) at 19:44 EDT , Service support , Medical Necessity - Tobacco Use Smoking Status: Never smoker Assessment/Plan All Active Problems (Last Reviewed 03/14/19 @ 00:03 by Yony Martinez MD) Urinary tract infection (Acute) Stroke-like symptoms (Acute) This is a 78 years old female patient transferred from the senior care because of slurred speech, increased facial droop and left arm drift and she was admitted for stroke work-up and also found to have probable acute cystitis. #1 strokelike symptoms: With past history of multiple strokes and previous dysarthria, unclear baseline. CT scan brain showed no acute findings. CTA head and neck showed no acute infarct or hemorrhage, no significant vascular disease or stenosis. EKG revealed normal sinus rhythm with right bundle branch block which is chronic, no acute findings. Chest x-ray showed no acute findings. Patient has no focal deficit on physical exam. Her blood pressure stable. She is on aspirin and Plavix. MRI ordered. Plan: Continue same treatment, awaiting MRI to be done, PT OT evaluation and treatment. #2 probable acute cystitis: In context of history of recurrent UTIs and family stated that patient gets more confused and disoriented with infections. Urinalysis revealed cloudy urine, negative for nitrite, there was 100 leukocyte esterase, 5-10 WBCs and 2+ bacteria. She was started on ciprofloxacin IV. Urine and blood culture sent. Plan to continue same treatment. #3 CAD status post CABG and stents: Stable, no acute issues. EKG showed no acute changes, troponin is negative. Continue aspirin and Eliquis. Lisinopril held to allow permissive hypertension for possible stroke. #4 hypertension: Blood pressure stable, lisinopril held as above. Plan to monitor. #5 paroxysmal atrial fibrillation: Rate is controlled, she is only on Eliquis for anticoagulation. She is not on any medication for rate control. #6 hypothyroidism: Stable, continue levothyroxine. #7 history of strokes: On aspirin and Eliquis, plan as above. #8 DVT prophylaxis: Continue Eliquis. This note was generated with 3DSo[employer] software. It may contain incorrect words, spelling, and punctuation that were not noted in checking the note before signing. Code Visit OBSV E&M: [id number] Subsequent observation care L2
--- NOTE | 2019-03-14 10:05 | MRI_ITS ---
STUDY: MRI BRAIN WITHOUT CONTRAST REASON FOR EXAM: Female, 78 years old. cva, slurred speech, confusion,increased facial droop, left arm drift, hx prior CVAs TECHNIQUE: Standardized multiplanar fat and water weighted pulse sequences were obtained. Technologist Notes Patient could not hold still COMPARISON: Jan 21 2019 FINDINGS: The examination is degraded by motion artifact. There is moderate cerebral atrophy with widening of the extra-axial spaces and ventricular dilatation. There are multiple white matter hyperintensities, distributed throughout the deep white matter tracts of the cerebral hemispheres, consistent with moderate chronic white matter ischemic changes. Normal bilateral basal ganglia. Normal thalami. There is no extra-axial fluid accumulation. Normal flow voids within the major intracranial circulation suggesting patency by spin echo criteria. Normal sella turcica, pituitary gland, infundibular stalk, optic chiasm and hypothalamus. Normal tectal plate and pineal gland. There are chronic white matter ischemic changes of the javi. The midbrain and medulla are otherwise normal. Normal cerebellum. MRI/Brain without Contrast IMPRESSION: No acute intracranial abnormality. Moderate chronic microvascular ischemic changes. Electronically Signed: Che Quintanilla MD at 12:09 EDT Tel , Service support ,
[2019-03-14] MEDS: LORazepam 2 MG/ML Syringe 1 MG IV (10:28)
[2019-03-14] MEDS: Ciprofloxacin 400 MG/200 ML BAG 200 MG IV ×2 (11:54→22:23)
[2019-03-14] MEDS: Aspirin 81 MG TAB.CHEW PO (11:54)
[2019-03-14] MEDS: Venlafaxine XR 150 MG Capsule PO (11:54)
[2019-03-14] MEDS: APIXABAN 5 MG TABLET PO ×2 (11:55→22:24)
[2019-03-14] MEDS: Pantoprazole Sodium 20 MG Tablet PO (11:55)
[2019-03-14] MEDS: buPROPion (XL) 150 MG TABLET.XL PO (11:56)
--- NOTE | 2019-03-14 15:30 | EKG12_ITS ---
Test Reason : RHYTHM Blood Pressure : / mmHG Vent. Rate : 069 BPM Atrial Rate : 069 BPM P-R Int : 176 ms QRS Dur : 140 ms QT Int : 438 ms P-R-T Axes : 048 -04 -08 degrees QTc Int : 469 ms Normal sinus rhythm Right bundle branch block Inferior infarct , age undetermined Abnormal ECG When compared with ECG of 13-MAR-2019 18:57, MANUAL COMPARISON REQUIRED, DATA IS UNCONFIRMED Confirmed by VINCENT HONEYCUTT ([id number]), managing editor RONNIE CAVAZOS ([id number]) on 03/23/2019 1:10:08 PM Referred By: Yony Martinez Confirmed By:VINCENT HONEYCUTT
[2019-03-14] MEDS: ALPRAZolam 0.5 MG Tablet 1 MG PO (22:23)
[2019-03-15] VITALS (14 sets, daily range): BP systolic 117–140; BP diastolic 67–83; PULSE 62–75; RESP 12–16; TEMP 36.5–36.8; O2SAT 92–97
[2019-03-15] MEDS: Levothyroxine 75 MCG Tablet PO (06:00)
[2019-03-15] MEDS: Aspirin 81 MG TAB.CHEW PO (08:40)
[2019-03-15] MEDS: Venlafaxine XR 150 MG Capsule PO (08:41)
[2019-03-15] MEDS: Pantoprazole Sodium 20 MG Tablet PO (08:42)
[2019-03-15] MEDS: APIXABAN 5 MG TABLET PO ×2 (08:42→22:07)
[2019-03-15] MEDS: buPROPion (XL) 150 MG TABLET.XL PO (08:43)
[2019-03-15] MEDS: 0.9% NaCl Peripheral Flush Adult/Peds IV ×2 (09:46→13:34)
[2019-03-15] MEDS: Ciprofloxacin 400 MG/200 ML BAG 200 MG IV (09:56)
--- NOTE | 2019-03-15 11:58 | CASEMGMT ---
Patient is from [facility]. MARANDA faxed them updates on patient. MARANDA met with patient, introduced self and role at [facility]. Patient confirmed she is from [facility]. When asked if her plan is to return there at d/c and she said, No, she is going to the hospital. MARANDA called patient's daughter, Roseanna Cross and she confirmed the plan is for patient to go back to [place]. Plan: d/c back to [facility] when ready Maryjo KESSLER MSW
--- NOTE | 2019-03-15 13:34 | PN_ITS ---
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 fib, CAD with history of CABG x2 vessels in 2013, right carotid stenosis, right bundle branch block, peripheral vascular disease with history of grafts/stents, chronic anticoagulation with Eliquis and hypothyroidism who [facility] to the emergency department [facility]2019 [facility] with slurred speech, increased facial droop and left arm drift. NIH in the emergency department done by the ER physician was a 2 for aphasia and left pronator drift. Per the penitentiary she was confused and hallucinating. She had a urine collected at the penitentiary on 03/10/2019 that was reportedly abnormal and she was on trimethoprim at the time of admission. White blood cell count was 5.7 with an unremarkable differential. BMP was unremarkable. Troponin was less than 0.015. Urine showed 5-10 white blood cells with 3+ bacteria. Brain CT showed no acute intracranial hemorrhage or mass-effect. There were white matter changes but no evidence of acute change. CTA of the head and neck showed no large vessel occlusion or thrombus. There were no intracranial aneurysms. There was 45% stenosis of the right proximal internal carotid artery which was stable. The tele-neurologist recommended an MRI which was done on 03/14/2019 and it showed no acute intracranial abnormality. CVA was ruled out. Urine culture grew greater than 100,000 colonies of an alpha hemolytic strep. She was started on Cipro at admission. the urine culture done at the [facility] grew Klebsiella pneumoniae which was pansensitive except for ampicillin. She was transitioned to ceftriaxone on 03/15/2019. All events of the past 24 hours of been reviewed. She has been afebrile since admission. Vital signs are stable. She is 92 to 94% saturated on room air. Review of laboratory done earlier in the patient's admission shows that the LDL is 122 and she has known coronary artery disease and history of CVA so this is not adequately controlled. Blood cultures from admission are still pending and are negative to date. Culture is growing alphahemolytic strep and sensitivities are not available yet. Pt seems somewhat confused. She told me that it was 1989 and that she is 87 YO and she is actually 78. She is in a NH because she falls a lot and is not safe by herself per family. She denies cough, SOB, chest pain, diarrhea, abdominal pain. she had a crump inserted last evening for urine retention. - Physical Exam General: Alert, Cooperative, No apparent distress, Confused HEENT: Atraumatic, Normocephalic Oral: Moist Mucosa Neck: Supple, No Nodes, Trachea Midline Lungs: Clear to auscultation, No rhonchi, No wheeze, No rales Cardiovascular: Regular rate, Regular Rhythm, Normal S1, Normal S2, No murmurs, No rub noted, No Gallop, - - Telemetry shows normal sinus rhythm with right bundle branch block and lots of artifact Abdomen: Bowel Sounds Present, Soft, Non Tender, Non-Distended Extremities: No clubbing, No cyanosis, No edema Skin: No rashes Neurological: Cranial nerves II-XII grossly intact, Neuro grossly intact, - - Able to follow simple commands appropriately Psych/Mental Status: Normal Affect, Appropriate Vital Signs Temp Pulse Resp BP Pulse Ox 97.9 F 72 14 137/83 H 94 03/15/19 08:31 03/15/19 11:01 03/15/19 08:50 03/15/19 08:31 03/15/19 10:58 Oxygen Flow Rate (L/min) 2 Oxygen Delivery Method Room Air Weight: 186 lb 4.65 oz Body Mass Index (BMI) 29.1 Finger Stick Blood Glucose 116 Intake and Output for Last 24 Hours 03/13/19 03/14/19 03/15/19 23:59 23:59 23:59 Intake Total 980 / 980 360 / 360 Output Total 1999 / 1999 950 / 950 Balance -1020 / -1020 -590 / -590 Microbiology Past 72 Hours 03/13/19 22:20 Urine Culture - Preliminary Urine, Catheterized Alpha Hemolytic Streptococcus Medical Necessity - Tobacco Use Smoking Status: Never smoker Assessment/Plan All Active Problems (Last Reviewed 03/14/19 @ 00:03 by Yony Martinez MD) Urinary tract infection (Acute) Stroke-like symptoms (Acute) Impressions 1. Strokelike symptoms with altered mental status, left pronator drift and slurred speech at admission with negative noncontrasted CTA and negative MRI of the brain. CTA of the head and neck with no significant areas of stenosis. CVA has been ruled out. Continue aspirin and Plavix. She has confusion still and this may have been related to Bactrim used to treat Klebsiella pneumoniae UTI as an outpatient. 2. Recent urinary tract infection secondary to Klebsiella pneumoniae. Currently growing greater than 100,000 colonies of an alpha Streptococcus, ID and sensitivities are pending. Transition to Rocephin today as Cipro can be associated with seizures and mental status changes in the elderly. 3. Coronary artery disease with history of CABG and stents. Serial troponins were negative. EKG showed right bundle branch block with no acute changes. Continue aspirin and Eliquis. Lisinopril was held at admission to provide permissive hypertension in light of stroke symptoms however blood pressure has been controlled without lisinopril. Continue aspirin and Eliquis. 4. Paroxysmal atrial fibrillation-in normal sinus rhythm currently. Renew Eliquis. Not requiring any medication for rate control. 5. Hypothyroidism-continue levothyroxine 6. History of small vessel ischemic disease of the brain with history of strokes-continue aspirin and Eliquis 7. Hx of malignant neoplasm of the brain per the records from the [place] - will need to discuss this with the family. 8. dementia? 9. Urine retention requiring insertion of Crump catheter 10. Fibromyalgia/GERD/frequent falls/history of cervical stenosis with radiculopathy/carpal tunnel syndrome/referral vascular disease with history of graft/stents/right bundle branch block/hyperlipidemia/chronic benzodiazepine use will complicate management, treatment and prognosis Await the results of the final urine culture and sensitivities. Continue the Rocephin recheck lab in the AM consider starting Crestor at [facility] since she has a hx of CAD and CVA and the LDL is 122. She is on Wellbutrin and Effexor....both can cause anxiety and also can cause urinary retention. they can also cause confusion, susan in the elderly. Dtr is requesting a psychiatric evaluation however, we do not have a psychiatrist on staff. will recommend a psych evaluation as an OP. With her confusion she may also need to see a neurologist to be evaluated for dementia. I think we would first need to rule out confusion and ataxia due to SE of medication. Will need to know the sensitivities prior to DC. Will try and talk with her dtr. Code Visit Inpatient E&M: 23293 Subs Hosp L2
[2019-03-15] MEDS: Ceftriaxone 1 GM/50 ML BAG IV (13:48)
--- NOTE | 2019-03-15 14:27 | CASEMGMT ---
SW did not complete PHQ-9 as per physician patient did not have a Stroke or TIA. Maryjo KESSLER MSW
[2019-03-15] MEDS: ALPRAZolam 0.5 MG Tablet 1 MG PO ×2 (16:34→22:07)
[2019-03-15] MEDS: Acetaminophen 500 MG Tablet 1000 MG PO (16:34)
--- NOTE | 2019-03-15 18:17 | NURSING ---
this rn reviewed and agrees with all charting completed by Marylou Monte student nurse
[2019-03-16] VITALS (8 sets, daily range): BP systolic 130–155; BP diastolic 72–83; PULSE 61–83; RESP 12–20; TEMP 36.5–37.1; O2SAT 93–95
[2019-03-16] MEDS: Levothyroxine 75 MCG Tablet PO (05:35)
[2019-03-16 06:06] LABS: Absolute Lymphocyte Count 1.27 X10^3/uL (0.83-4.51); Absolute Neutrophil Count 2.6 X10^3/uL (2.0-7.7); Basophil# 0.03 X10^3/uL; Basophil% 0.6 % (0-1); Eosinophil# 0.11 X10^3/uL; Eosinophils% 2.4 % (0-5); Hemoglobin 13.8 g/dL (12.0-15.0); Lymphocyte # 1.27 X10^3/ul (4.0); Lymphocyte % 27.3 % (19-41); Mean Corp Hgb Conc 34.5 g/dL (32-36); Mean Corpuscular Hgb 32.9 pg (27.0-32.0); Mean Corpuscular Volume 95.5 fL (81-99); Mean Platelet Vol. 9.5 fl (6.2-12.0); Monocyte# 0.61 X10^3/uL; Monocyte% 13.1 % (0-10); NRBC Flagged by Analyzer 0 % (0-5); Neutrophil # 2.61 X10^3/uL (2.7-7.7); Platelet Count 305 K/mm3 (150-450); RBC Distribution Width CV 13.5 % (11.6-14.6); RBC Distribution Width SD 47.3 fl (35.1-43.9); Red Blood Count 4.19 M/mm3 (4.2-5.4); White Blood Count 4.7 K/mm3 (4.4-11.0)
[2019-03-16 06:36] LABS: ALB/GLOB Ratio 0.8 RATIO (0.9-2.4); AST(SGOT) 22 U/L (15-37); Alanine Aminotransfer ALT/SGPT 24 U/L (13-56); Albumin, Serum 2.9 g/dL (3.2-5.0); Alkaline Phosphatase 76 U/L (45-117); Anion Gap 5 (5-15); BUN 15 mg/dL (7-18); BUN/Creat Ratio 16.3 RATIO (10-20); CRP < 2.90 mg/L (0.0-3.0); Calcium,Total 8.5 mg/dL (8.5-10.1); Chloride 104 mmol/L (98-107); Creatinine, Serum 0.92 mg/dL (0.55-1.02); EST Glomerular Filtration Rate 63 mL/min (>60); Est Glom Filt Rate - Afr Amer 76 mL/min (>60); Estimated Creatinine Clearance 49.01 ml/min; Globulin 3.6 g/dL (2.2-4.2); Glucose 93 mg/dL (74-106); Magnesium 2.2 mg/dL (1.6-2.6); Phosphorus 3.7 mg/dL (2.5-4.9); Potassium 3.7 mmol/L (3.5-5.1); Protein, Total 6.5 g/dL (6.4-8.2); Sodium Level 139 mmol/L (136-145)
[2019-03-16 06:38] LABS: Erythrocyte Sedimentation Rate 25 mm/hr (0-30)
[2019-03-16] MEDS: Aspirin 81 MG TAB.CHEW PO (09:35)
[2019-03-16] MEDS: APIXABAN 5 MG TABLET PO (09:35)
[2019-03-16] MEDS: Venlafaxine XR 150 MG Capsule PO (09:35)
[2019-03-16] MEDS: Pantoprazole Sodium 20 MG Tablet PO (09:36)
[2019-03-16] MEDS: 0.9% NaCl Peripheral Flush Adult/Peds IV (09:37)
[2019-03-16] MEDS: buPROPion (XL) 150 MG TABLET.XL PO (09:37)
[2019-03-16] MEDS: Ceftriaxone 1 GM/50 ML BAG IV (09:38)
--- NOTE | 2019-03-16 12:00 | CASEMGMT ---
Physician asked if patient could return to the [facility] today and MARANDA confirmed she can return. MRAANDA called Janet at [facility] and let her know this information. Plan: d/c back to [facility] at [facility]
--- NOTE | 2019-03-16 12:48 | NURSING ---
this RN has reviewed and agrees with all charting completed by Marylou Monte student nurse
--- NOTE | 2019-03-16 15:31 | PCM.TXEXTCAR ---
- Diet 03/14/19 11:02 Diet: Cardiac/Low Cholesterol/carb control Food consistency:: Mechanical Soft/Ground Liquid Consistency:: Roxana Thick Is pt able to select menu?: Yes Diet Comments: 1:1 feeding supervision, saira cejack w/ liquids, SILENT ASPIRATOR - Routine Orders/Code Status Enema Type: Fleetz Enema Frequency: Daily PRN Suppository Type: Dulcolax 10mg Suppository Frequency: Daily PRN Routine Lab Work: UA - please obtain a complete UA 5 days after the Cefadroxil has been finished and send for urine culture. the urine should be obtained by straight cath. Code [facility] - Wound(s) Top of L foot Wound Type: Abrasion - Therapies Physical Therapy: Eval and Treat Occupational Therapy: Eval and Treat Speech Therapy: Eval and Treat - Problem/Diagnosis (1) Dysphagia Status: Chronic Current Visit: Yes (2) Urine retention Status: Acute Current Visit: Yes (3) Mixed anxiety depressive disorder Status: Chronic Current Visit: Yes (4) Dementia Status: Suspected Current Visit: Yes (5) PAF (paroxysmal atrial fibrillation) Status: Chronic Current Visit: Yes (6) Urinary tract infection Status: Acute Current Visit: Yes (7) Atherosclerotic heart disease of belkofski coronary artery without angina pectoris Status: Chronic Comment: CABG X 2 CAN-LAD, SVG-CX 06/11/2014 @ [facility] per Dr. Sutton Current Visit: No (8) CVA (cerebral vascular accident) Status: Chronic Comment: 10/31/18: MRI demonstrated tiny acute right pontine infarct 01/24/17:MRI demonstrated an acute infarct in the right thalamus and left parietal region Current Visit: No (9) Diabetes mellitus Status: Chronic Current Visit: No (10) Hyperlipidemia Status: Chronic Current Visit: No (11) Hypertension Status: Chronic Current Visit: No (12) Hypothyroidism Status: Chronic Current Visit: No (13) [facility] current use of anticoagulant Status: Chronic Comment: Eliquis for PAF Current Visit: No (14) Right bundle branch block Status: Chronic Current Visit: No (15) S/P CABG x 2 Status: Chronic Comment: CABG X 2 CAN-LAD, SVG-CX @ [facility] per Dr. Sutton Current Visit: No (16) Sleep apnea Status: Chronic Current Visit: No (17) Stenosis of right carotid artery Status: Chronic Current Visit: No (18) Stented coronary artery Status: Chronic Comment: IVUS left main 06/07/2014, PCI-FAREED Prox & Mid LAD Current Visit: No - Allergies/Procedures Done in Hospital Allergies/Adverse Reactions: Allergies atorvastatin Allergy (Verified 01/21/19 15:40) Other muscle weakness codeine Allergy (Verified 01/21/19 15:40) Unknown levofloxacin [From Levaquin] Allergy (Verified 01/21/19 15:40) Pain in joints Penicillins Allergy (Verified 01/21/19 15:40) Swelling tongue swells and hives pravastatin Allergy (Verified 01/21/19 15:40) myalgia Sulfa (Sulfonamide Antibiotics) Allergy (Verified 01/21/19 15:40) Swelling tongue swell and hives Procedures: None - Type of Care/Length of Stay Estimated LOS: More Than 30 Days Type of Care Needed: Skilled Rehab Potential: Fair Prognosis: Fair - Additional Orders/Day of Discharge Additional Orders: post void residual urine daily for 3 days and if the post void residual is > 250 insert a crump catheter. She had urine retention in the hospital and had to have a crump.......th9is may be why she is getting UTI's. She should follow up with Dr. Anneliese Ulloa in the office to be evaluate for urine retention. Both Effexor and Wellbutrin can cause urine retention. Wellbutrin has been discontinued because it can cause urine retention and one of the biggest side effects is insomnia and increased anxiety. She should be weaned off the Xanax as it is a a cause of increased confusion in the elderly and causes increased falls. I have given instructions for weaning. We are starting her on Remeron to help with insomnia and depression. H&P will serve as current which was dated: 03/13/19 Day of Discharge: 03/16/19 - Dietary and Speech Recommendations Dietitian Recommendations/Changes: As medically able, rec LETI to Cardiac/CHO Controlled diet - consistency per [employer] - Follow Up Care Primary Care Physician: Marisol Casas DO [Primary Care Provider] - Please Follow Up With: Anneliese Ulloa MD When: within the next 2-3 weeks for urine retention
--- NOTE | 2019-03-16 16:13 | CASEMGMT ---
Patient is ready for discharge back to [facility] today. Faxed orders to [facility]. Called [facility] and arranged for patient to get picked up at [facility]. MARANDA notified RN who called patient's daughter and let her know. MARANDA also notified ecg technician and Janet at [facility]. Plan: d/c back to [place] [facility] under intermediate level of care. [facility] transported. Maryjo KESSLER MSW
--- NOTE | 2019-03-16 16:13 | NURSING ---
daughter made aware of pt transfer to [facility]
--- NOTE | 2019-03-16 17:19 | NURSING ---
report called to Jorge Luis MOLINA at [facility]
--- NOTE | 2019-03-16 17:48 | DS.PCM_ITS ---
Discharge Date and Diagnosis Date of Admission: 03/13/19 Date of Discharge: 03/16/19 - Primary Discharge Diagnosis Acute UTI present at admission due to Aerococcus urinae Metabolic encephalopathy due to infection +/- Bactrim Urine retention CVA - ruled out - Secondary Discharge Diagnosis Chronic Problems (Last Reviewed 03/14/19 @ 00:03 by Yony Martinez MD) Dysphagia (Chronic) Mixed anxiety depressive disorder (Chronic) PAF (paroxysmal atrial fibrillation) (Chronic) residential current use of anticoagulant (Chronic) Eliquis for PAF Diabetes mellitus II (Chronic) Sleep apnea (Chronic) Stented coronary artery (Chronic 04/13/15) IVUS left main 06/07/2014, PCI-FAREED Prox & Mid LAD S/P CABG x 2 (Chronic 06/11/14) CABG X 2 CAN-LAD, SVG-CX @ [facility] per Dr. 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 Sutton Stenosis of right carotid artery (Chronic) Right bundle branch block (Chronic) Hyperlipidemia (Chronic) Hypertension (Chronic) Hypothyroidism (Chronic) CVA (cerebral vascular accident) (Chronic 10/31/18) 10/31/18: MRI demonstrated tiny acute right pontine infarct 01/24/17:MRI demonstrated an acute infarct in the right thalamus and left parietal region Chronic Benzodiazepine use Hospital Course and Treatment Imaging Results: Clinical Impression(s) from Imaging Studies Brain CT 03/13/19 19:08 IMPRESSION: 1. No acute intracranial hemorrhage or mass effect. 2. Central parenchymal volume loss. White matter changes that are nonspecific but most commonly associated with chronic small vessel ischemic disease. N.B. : The above information has been verbally conveyed by Holden Alberto MD (Brooks) to Lance Alvarez on 03/13/2019 19:24:17 (ET). Electronically Signed: Holden Alberto MD (Brooks) at 19:26 EDT , Service support , Head/Neck CTA 03/13/19 19:10 IMPRESSION: 1. No large vessel occlusion/thrombus. No intracranial aneurysm. 2. Right carotid bulb and proximal ICA atherosclerosis, 45% stenosis, stable. N.B. : The above information has been verbally conveyed by Holden Alberto MD (Brooks) to Lance Alvarez on 03/13/2019 19:39:35 (ET). Electronically Signed: Holden Alberto MD (Brooks) at 19:40 EDT , Service support , Chest X-Ray 03/13/19 19:24 IMPRESSION: No airspace consolidation or pleural effusion. Electronically Signed: Holden Alberto MD (Brooks) at 19:44 EDT , Service support , Brain MRI 03/14/19 10:05 IMPRESSION: No acute intracranial abnormality. Moderate chronic microvascular ischemic changes. Electronically Signed: Che Quintanilla MD at 12:09 EDT Tel , Service support , Laboratory Results - last 24 hr 03/16/19 03/16/19 05:20 05:20 WBC 4.7 RBC 4.19 L Hgb 13.8 Hct 40.0 MCV 95.5 MCH 32.9 H MCHC 34.5 RDW Std Deviation 47.3 H RDW Coeff of Juany 13.5 Plt Count 305 MPV 9.5 Immature Gran % (Auto) 0.600 Neut % (Auto) 56.0 Lymph % (Auto) 27.3 Gilmer % (Auto) 13.1 H Eos % (Auto) 2.4 Baso % (Auto) 0.6 Absolute Neuts (auto) 2.6 Absolute Lymphs (auto) 1.27 Nucleated RBC % 0 ESR 25 Sodium 139 Potassium 3.7 Chloride 104 Carbon Dioxide 30.0 Anion Gap 5 BUN 15 Creatinine 0.92 Estim Creat Clear Calc 49.01 Est GFR (MDRD) Af Amer 76 Est GFR (MDRD) Non-Af 63 BUN/Creatinine Ratio 16.3 Glucose 93 Calcium 8.5 Phosphorus 3.7 Magnesium 2.2 Total Bilirubin 0.40 AST 22 ALT 24 Alkaline Phosphatase 76 C-React Prot Ext Range < 2.90 Total Protein 6.5 Albumin 2.9 L Globulin 3.6 Albumin/Globulin Ratio 0.8 L Microbiology 03/13/19 22:54 Blood Culture (Wb) - Left Hand Blood Culture - Preliminary No growth in 48 hours. 03/13/19 23:00 Blood Culture (Wb) - Anticubital Right Blood Culture - Preliminary No growth in 48 hours. 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 fib, CAD with history of CABG x2 vessels in 2013, right carotid stenosis, right bundle branch block, peripheral vascular disease with history of grafts/stents, chronic anticoagulation with Eliquis and hypothyroidism who presented to the emergency department at [facility] on 03/13/2019 from the [facility] with slurred speech, increased facial droop and left arm drift. NIH in the emergency department done by the ER physician was a 2 for aphasia and left pronator drift. Per the intermediate she was confused and hallucinating. She had a urine collected at the intermediate on 03/10/2019 that grew Klebsiella pneumoniae and she was on Bactrim at the time of admission. White blood cell count was 5.7 with an unremarkable differential. BMP was unremarkable. Troponin was less than 0.015. Urine showed 5-10 white blood cells with 3+ bacteria. Brain CT showed no acute intracranial hemorrhage or mass-effect. There were white matter changes but no evidence of acute change. CTA of the head and neck showed no large vessel occlusion or thrombus. There were no intracranial aneurysms. There was 45% stenosis of the right proximal internal carotid artery which was stable. The tele-neurologist recommended an MRI which was done on 03/14/2019 and it showed no acute intracranial abnormality. CVA was ruled out. She was started on Cipro at admission but this was discontinued and she was transitioned to Rocephin after reviewing the sensitivities of the Klebsiella pneumoniae. Blood cultures drawn at admission had no growth. Urine culture done at admission, from a catheterized specimen grew Aerococcus urinae. This bacteria tends to be sensitive to cephalosporins and resistant to FQ's. A crump catheter was inserted during her admission due to urine retention. This may be the reason for the UTI's she has been getting. Both Wellbutrin and Effexor can be associated with urine retention and also with insomnia and anxiety. She is taking Xanax 1 mg at bedtime for insomnia and anxiety. she has been taking Xanax for many years per the dtr but is now down to once or twice a day. Wellbutrin was discontinued and the Xanax will be tapered off over the next 2 weeks. she was started on Remeron for insomnia and depression. On 03/16/19 she was more oriented and appropriate. She was able to follow commands and hold a conversation. It is entirely possible that the confusion at admission and the hallucinations were due to Bactrim and this is a common SE of [facility] as well as blood dyscrasias. She was discharged back to the [facility] on 03/16/2019. She will continue Duricef 1 g p.o. daily for 8 more days. She should have a straight cath for UA and urine culture 5 days after the Duricef has finished. Postvoid residual was ordered daily for 3 days and if her urine residual is greater than 250 cc the Crump should be reinserted. She should follow-up with Dr. Anneliese Ulloa, urology, in the next few weeks. PHYSICAL EXAM: GENERAL: alert, oriented X 2 - she tells me that it is 1989 but she knows this is not true and can not figure out why she is saying this, , Cooperative, NAD ORAL: moist mucosa, no mucosal lesions NECK: No JVD, supple, trachea midline LUNGS: CTA, symmetric chest expansion HEART: RRR, Normal S1 and S2, no rub, no gallop, no murmurs. Telemetry shows normal sinus rhythm with a right bundle branch block and no significant ectopy. ABDOMEN: soft, NT, ND, BS present, no guarding with palpation EXTREMITIES: no edema, no cyanosis, no calf tenderness SKIN: No rashes, no breakdown NEUROLOGIC: no focal neurologic deficits PSYCH: appropriate, normal affect, pleasant This note was generated with [employer] software. It may contain incorrect words, spelling, and punctuation that were not noted in checking the note before signing. - Physical Exam Vital Signs Temp Pulse Resp BP Pulse Ox 97.7 F L 79 12 130/72 H 93 03/16/19 14:40 03/16/19 15:04 03/16/19 14:40 03/16/19 14:40 03/16/19 14:40 Oxygen Flow Rate (L/min) 2 Oxygen Delivery Method Room Air Weight: 186 lb 4.65 oz Body Mass Index (BMI) 29.1 Finger Stick Blood Glucose 116 Intake and Output for Last 24 Hours 03/14/19 03/15/19 03/16/19 23:59 23:59 23:59 Intake Total 980 / 980 650 / 650 305 / 305 Output Total 1999 / 1999 1270 / 1270 575 / 575 Balance -1020 / -1020 -620 / -620 -270 / -270 Microbiology Past 72 Hours 03/13/19 22:54 Blood Culture - Preliminary Blood Culture (Wb) - Left Hand No growth in 48 hours. 03/13/19 23:00 Blood Culture - Preliminary Blood Culture (Wb) - Anticubital Right No growth in 48 hours. 03/13/19 22:20 Urine Culture - Final Urine, Catheterized Aerococcus urinae Laboratory Tests Past 24 Hrs 03/16/19 03/16/19 05:20 05:20 WBC 4.7 RBC 4.19 L Hgb 13.8 Hct 40.0 MCV 95.5 MCH 32.9 H MCHC 34.5 RDW Std Deviation 47.3 H RDW Coeff of Juany 13.5 Plt Count 305 MPV 9.5 Immature Gran % (Auto) 0.600 Neut % (Auto) 56.0 Lymph % (Auto) 27.3 Gilmer % (Auto) 13.1 H Eos % (Auto) 2.4 Baso % (Auto) 0.6 Absolute Neuts (auto) 2.6 Absolute Lymphs (auto) 1.27 Nucleated RBC % 0 ESR 25 Sodium 139 Potassium 3.7 Chloride 104 Carbon Dioxide 30.0 Anion Gap 5 BUN 15 Creatinine 0.92 Estim Creat Clear Calc 49.01 Est GFR (MDRD) Af Amer 76 Est GFR (MDRD) Non-Af 63 BUN/Creatinine Ratio 16.3 Glucose 93 Calcium 8.5 Phosphorus 3.7 Magnesium 2.2 Total Bilirubin 0.40 AST 22 ALT 24 Alkaline Phosphatase 76 C-React Prot Ext Range < 2.90 Total Protein 6.5 Albumin 2.9 L Globulin 3.6 Albumin/Globulin Ratio 0.8 L Home Medications: Medications to take at Discharge Acetaminophen [Tylenol] 1,000 mg PO Q8H PRN PRN tab 11/20/18 Potassium Chloride [K-Dur] 10 meq PO DAILY tab 11/20/18 Venlafaxine XR [Effexor Xr] 150 mg PO DAILY cap 11/20/18 Apixaban [Eliquis] 5 mg PO BID 12/08/18 Aspirin [Aspirin, Baby] 81 mg PO DAILY@79912/08/18 Levothyroxine [Synthroid] 75 mcg PO DAILY@59912/08/18 Lisinopril [Zestril] 10 mg PO DAILY 12/08/18 Omeprazole 20 mg PO DAILY 03/13/19 Bisacodyl 10 mg DC DAILY PRN 03/14/19 Ethyl Chloride (SP) [(None)] 1 spray TOPICAL DAILY PRN 03/14/19 Magnesium Hydroxide [Milk of Magnesia] 30 ml PO DAILY PRN 03/14/19 Mineral Oil 118 ml RECTALLY DAILY PRN 03/14/19 ALPRAZolam [Xanax] 0.5 mg PO QHS #1 03/16/19 Cefadroxil 1 gm PO DAILY #8 tab 03/16/19 Mirtazapine [Remeron] 15 mg PO QHS #1 tab 03/16/19 Following Prescrptions Were Given to Patient: Cefadroxil 1 gm PO DAILY #8 tab Prescription Printed Mirtazapine [Remeron] 15 mg PO QHS #1 tab Primary Care Physician: Marisol Casas DO [Primary Care Provider] - Please follow up with your Primary Care Physician in: 10-14 days Please Follow Up With: Anneliese Ulloa MD When: within the next 2-3 weeks for urine retention Dis[facility] Minutes spent on discharge:: 40 Patient Condition:: Stable Medical Necessity - Tobacco Use Smoking Status: Never smoker Tobacco Use: Non-smoker Meaningful Use Info Meaningful Use Diagnoses (Choose all that apply): None applicable Code Visit Inpatient E&M: 80949 Disch Hosp
== END 2019-03-16 17:15 | disposition skilled nursing facility (03) | DRG 689 ==
LOC: ED 23:10 → PCU 23:23
PROVIDERS: Admitting Provider Hospitalist; Emergency Provider Emergency Medicine; Family Provider Internal Medicine; PCP Internal Medicine; Referring Provider Hospitalist; Visit Provider Internal Medicine
DX: N30.00 Acute cystitis without hematuria (principal); G93.41 Metabolic encephalopathy; R47.01 Aphasia; B95.4 Other streptococcus as the cause of diseases classified elsewhere; R13.10 Dysphagia, unspecified; I48.0 Paroxysmal atrial fibrillation; F41.8 Other specified anxiety disorders; G47.30 Sleep apnea, unspecified; Z95.5 Presence of coronary angioplasty implant and graft; Z95.1 Presence of aortocoronary bypass graft; I25.10 Atherosclerotic heart disease of native coronary artery without angina pectoris; I45.10 Unspecified right bundle-branch block; E78.5 Hyperlipidemia, unspecified; I10 Essential (primary) hypertension; E03.9 Hypothyroidism, unspecified; M79.7 Fibromyalgia; R29.6 Repeated falls; R29.810 Facial weakness; F03.90 Unspecified dementia, unspecified severity, without behavioral disturbance, psychotic disturbance, mood disturbance, and anxiety; K21.9 Gastro-esophageal reflux disease without esophagitis; T36.8X5A Adverse effect of other systemic antibiotics, initial encounter; R47.1 Dysarthria and anarthria; Z66 Do not resuscitate; Z87.440 Personal history of urinary (tract) infections; Z79.82 Long term (current) use of aspirin; Z79.890 Hormone replacement therapy; Z79.02 Long term (current) use of antithrombotics/antiplatelets; Z79.01 Long term (current) use of anticoagulants; Z79.899 Other long term (current) drug therapy; Z85.841 Personal history of malignant neoplasm of brain; Z86.73 Personal history of transient ischemic attack (TIA), and cerebral infarction without residual deficits
CPT/HCPCS: 36415; 70450; 70496; 70498; 70551; 71045; 80048; 80053; 80061; 81001; 83735; 84100; 84484; 85025; 85610; 85652; 85730; 86140; 87040; 87077; 87086; 87088; 92526; 92610; 93005; 94762; 97162; 97166; 97530; 97802; 99285; P9612; A4216; J0744

== ENCOUNTER 2019-07-11 18:11 | Emergency (ER) | payer MEDICARE, OTHER, SELFPAY ==
[2019-03-14 17:00] VITALS: BMI 29.1
[2019-07-11 18:12] VITALS: BP 145/98; PULSE 69; RESP 18; TEMP 36.6; O2SAT 95; BMI 30.4
[2019-07-11 18:17] VITALS: BP 145/98; PULSE 69; RESP 18; TEMP 36.6; O2SAT 95
--- NOTE | 2019-07-11 18:33 | EKG12_ITS ---
Test Reason : Blood Pressure : / mmHG Vent. Rate : 070 BPM Atrial Rate : 070 BPM P-R Int : 166 ms QRS Dur : 132 ms QT Int : 406 ms P-R-T Axes : 039 -22 -21 degrees QTc Int : 438 ms Normal sinus rhythm Right bundle branch block Inferior infarct , age undetermined Abnormal ECG Confirmed by HUYEN ROSARIO, DOMINGA ([id number]), sports editor JENNIFER VAZQUEZ ([id number]) on 07/13/2019 8:56:34 AM Referred By: BB Confirmed By:DOMINGA MATSON MD
--- NOTE | 2019-07-11 18:33 | CT_ITS ---
STUDY: CT BRAIN WITHOUT CONTRAST REASON FOR EXAM: Female, 79 years old. Left-sided weakness RADIATION DOSAGE (If Supplied By Facility): CTDIvol = ( 44.99 ) mGy, DLP = ( 796.11 ) mGycm TECHNIQUE: Transaxial CT imaging of the brain was performed without administration of intravenous contrast material. Individualized dose optimization techniques were used for this CT. COMPARISON: 14 March 2019 FINDINGS: There is no acute intracranial hemorrhage, extra parenchymal fluid collections, hydrocephalus or herniation. There is mild periventricular white matter hypodensity and small remote right mid peralta radiata infarct. There is extensive ill-defined pontine hypodensity, likely chronic ischemic disease. There is mild frontal predominance brain atrophy. The skull is intact. Appearance is similar to prior. CT/Brain/Head without Contrast IMPRESSION: 1. No acute findings or change since prior. 2. Moderate chronic white matter ischemic change. Electronically Signed: Keya Dumas, at 19:38 EST Tel , Service support ,
--- NOTE | 2019-07-11 18:38 | ED.VIS.STROK ---
History of Present Illness Chief Complaint: Weakness Informant: Patient, Family Onset: Days - 4 Context: Gradual Onset Timing: Continuous Quality and Location: - - difficulty speaking. generally weak. Onset: gradual Current Severity: Severe Maximum Severity: Severe Worsened by: unk Relieved by: nothing Associated Symptoms: Nausea, - - feels a little sob. 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 Negative for: Headache, Vomiting, Chest Pain Narrative: Patient is resides in a [place] [facility] and has been getting weaker over this past week, according to the [facility] power of attorney law clerk, at least 4 days. She has a history of mini strokes that have left her with deficits on the left side, though seem worse and her speech is abnormal whereas it usually is fairly normal. She has had urinary tract infections in the past and she wonders if she is having 1 of those. She admits to having some dysuria on occasion. She denies any abdominal pain but has been nauseated. No vomiting or diarrhea. No recent injuries. - Past Medical History (1) Atherosclerotic heart disease of [place] coronary artery without angina pectoris Status: Chronic Comment: CABG X 2 CAN-LAD, SVG-CX 06/11/2014 @ [facility] per Dr. 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: Chronic Comment: Eliquis for PAF (8) Mixed anxiety depressive disorder Status: Chronic (9) PAF (paroxysmal atrial fibrillation) Status: Chronic (10) Sleep apnea Status: Chronic (11) Stenosis of right carotid artery Status: Chronic (12) Dementia Status: Suspected Past Medical History - Allergies and Home Meds Allergies/Adverse Reactions: Allergies atorvastatin Allergy (Verified 01/21/19 15:40) Other muscle weakness codeine Allergy (Verified 01/21/19 15:40) Unknown levofloxacin [From Levaquin] Allergy (Verified 01/21/19 15:40) Pain in joints Penicillins Allergy (Verified 01/21/19 15:40) Swelling tongue swells and hives pravastatin Allergy (Verified 01/21/19 15:40) myalgia Sulfa (Sulfonamide Antibiotics) Allergy (Verified 01/21/19 15:40) Swelling tongue swell and hives Primary Care Physician: Marisol Casas DO [STAFF PHYSICIAN] - Surgical History: arthroscopy, knee, coronary bypass surgery, - - CABG x 2, PCI prior, ankle surgery, renal surgery, TKR. Lives: [facility] Smoking Status: Never smoker - Family History Maternal Family History: Family History (Last Reviewed 03/14/19 @ 00:03 by Yony Martinez MD) Father Heart disease Sister Cancer Uncle CAD (coronary artery disease) Family History: Reports: Stroke Paternal Family History: Family History (Last Reviewed 03/14/19 @ 00:03 by Yony Martinez MD) Father Heart disease Sister Cancer Uncle CAD (coronary artery disease) Family History: Reports: Heart Disease Sibling Family History: Family History (Last Reviewed 03/14/19 @ 00:03 by Yony Martinez MD) Father Heart disease Sister Cancer Uncle CAD (coronary artery disease) Family History: Reports: Cancer Review of Systems ROS: Unable to Obtain - limited eval due to confusion, speech difficulty General: Reports: Malaise. Denies: Fever Eyes: Denies: Visual changes - bilaterally, Diplopia ENT: Denies: Bilateral ear pain, Sore throat Cardiovascular: Denies: Chest pain Respiratory: Reports: Dyspnea, Cough. Denies: Sputum Gastrointestinal: Reports: Nausea. Denies: Abdominal pain, Vomiting, Diarrhea, Hematochezia Genitourinary: Reports: Dysuria. Denies: Hematuria Musculoskeletal: Denies: Neck pain, Back pain, Extremity Pain Neurological: Reports: Weakness - left arm, left lower face. Denies: Headache, Numbness STROKE Vital Signs/Narrative: Vital Signs Temp Pulse Resp BP Pulse Ox 07/11/19 18:17 97.8 F 69 18 145/98 H 95 07/11/19 18:12 97.8 F 69 18 145/98 H 95 Inital Vital Signs reviewed: Yes - NIHSS Initial 1a Level of Consciousness: 0 1b LOC Questions (Score 2 if aphasic/stupor): 1 - wrong age 1c LOC Commands (Only score 1st attempt): 0 2 Best Gaze (If aphasic, use reflexive mvmts.): 0 3 Visual: 0 4 Facial Palsy: 2 5 Motor Arm Right (UN = amputation/fusion): 0 5 Motor Arm Left: 1 6 Motor Leg Right: 2 6 Motor Leg Left: 2 7 Limb ataxia (Only + if out of proportion): 0 8 Sensory (Aphasia/stupor=0 or 1, coma=2): 0 9 Best Language: 1 10 Dysarthria (mute, coma=2, intubated=UN): 1 11 Extinction and Inattention (only scored if +): 0 Total Score: 10 General: Well nourished, Well developed, - - malaised. no distress. Head: Normocephalic, Atraumatic Eyes: Perrl, EOMI ENT: Moist mucous membranes, No rhinorrhea Neck: Supple, Nontender, No lymphadenopathy Cardiovascular: Regular rate, Regular rhythm, No murmurs Respiratory: No distress, CTA bilaterally - limited eval. shallow breathing. not tachypneic or in any distress., Chest nontender Abdomen: Soft, Nontender, Nondistended, Normal bowel sounds Back: Nontender, Normal Inspection Extremities: Nontender, No edema Skin: Normal color, No rash, No Trauma Neurological: Alert, Normal Sensation, Disoriented - time Psychological: Normal affect, Normal Mood Diagnostic/Tx/Re-eval Impressions Brain CT 07/11/19 18:33 IMPRESSION: 1. No acute findings or change since prior. 2. Moderate chronic white matter ischemic change. Electronically Signed: Keya Dumas, at 19:38 EST Tel , Service support , 07/11/19 18:33 Brain/Head without Contrast [CT] Stat 07/11/19 18:40 Chest 1 View (Portable) [RAD] Stat 07/11/19 19:04 Mucosa - Nose Influenza Types A,B Direct FA ([facility]) - Final Laboratory Results 07/11/19 07/11/19 07/11/19 18:15 18:15 18:25 WBC 7.3 RBC 4.76 Hgb 16.0 H Hct 47.6 H MCV 100.0 H MCH 33.6 H MCHC 33.6 RDW Std Deviation 55.8 H RDW Coeff of Juany 15.0 H Plt Count 148 L MPV 11.1 Immature Gran % (Auto) 1.000 H Neut % (Auto) 69.5 Lymph % (Auto) 12.3 L Concho % (Auto) 15.4 H Eos % (Auto) 1.4 Baso % (Auto) 0.4 Absolute Neuts (auto) 5.1 Absolute Lymphs (auto) 0.90 Nucleated RBC % 0 Differential Comment SCANNED Platelet Estimate ADEQUATE Sodium 139 Potassium 4.0 Chloride 106 Carbon Dioxide 27.0 Anion Gap 6 BUN 15 Creatinine 0.90 Estim Creat Clear Calc 49.29 Est GFR (MDRD) Af Amer 77 Est GFR (MDRD) Non-Af 64 BUN/Creatinine Ratio 16.6 Glucose 114 H Lactic Acid Calcium 8.8 Troponin I < 0.015 Urine Color Yellow Urine Clarity Cloudy Urine pH 6.5 Ur Specific Curtis 1.015 Urine Protein 15 H Urine Glucose (UA) Normal Urine Ketones 50 H Urine Occult Blood 25 H Urine Nitrite Negative Urine Bilirubin 3 H Urine Urobilinogen 12 H Ur Leukocyte Esterase 500 H Urine RBC 0 SEEN Urine WBC >100 SEEN Ur Squamous Epith Cells 0 SEEN Urine Bacteria 1+ Urine Mucus 0 SEEN 07/11/19 18:54 WBC RBC Hgb Hct MCV MCH MCHC RDW Std Deviation RDW Coeff of Juany Plt Count MPV Immature Gran % (Auto) Neut % (Auto) Lymph % (Auto) Concho % (Auto) Eos % (Auto) Baso % (Auto) Absolute Neuts (auto) Absolute Lymphs (auto) Nucleated RBC % Differential Comment Platelet Estimate Sodium Potassium Chloride Carbon Dioxide Anion Gap BUN Creatinine Estim Creat Clear Calc Est GFR (MDRD) Af Amer Est GFR (MDRD) Non-Af BUN/Creatinine Ratio Glucose Lactic Acid 1.0 Calcium Troponin I Urine Color Urine Clarity Urine pH Ur Specific Curtis Urine Protein Urine Glucose (UA) Urine Ketones Urine Occult Blood Urine Nitrite Urine Bilirubin Urine Urobilinogen Ur Leukocyte Esterase Urine RBC Urine WBC Ur Squamous Epith Cells Urine Bacteria Urine Mucus Chest X-Ray - ED: 1 View, Read by ED Physician, Unchanged, Normal, Lungs, No Acute Disease - Rhythm Strip Rhythm Strip: Sinus Rhythm Rate: 70 Ectopy: None - EKG Initial EKG Interpretation: Sinus Rhythm, No Acute Injury Pattern, RBBB, Non-Specific ST Changes Prior: Unchanged - Medical Decision Making Stroke Team Activated: No - timing of sx outside of [address] shows no acute abnormalities or changes compared with her prior. Her NIH is 10, however this is due to multiple reasons. She has prior deficits from stroke, and she is generally weak, which can make those deficits look more prominent. Please see the stroke scale for details. Family agrees that she does not appear to have any new deficits with the exception of difficulty speaking however this is very nonspecific, she is talking slower and and fewer words at a time, which technically triggers speech abnormalities on the stroke scale, but is not specific to left MCA territory ischemia and could be caused by metabolic or infectious etiologies. In her case, she appears to have a urinary tract infection. The rest of her labs are pretty good, including her lactate which is well within normal limits, ruling against sepsis. She appeared very malaised. After straight cathing and doing labs, she did perk up according to nursing and actually wanted something for her anxiety. Before getting the work-up back I did not want to give her any benzodiazepines, so we gave her her nighttime mirtazapine early. On reevaluation she is very calm and her vital signs are stable. Her chest x-ray on my evaluation, 1 view, is normal without signs of infiltrate or changes compared with her prior. Family is comfortable with her going back to the [place] [facility] after a dose of empiric IV Rocephin on cephalexin which is work for her urinary tract infections in the past. She has multiple medication allergies that leave this in fosfomycin as really the only reasonable initial empiric options. Blood and urine cultures are sent, and she is stable to be discharged back to [place] [facility]. ED Disposition - Plan for ED Patient: Disposition: Senior Living Facility Diagnosis: UTI (urinary tract infection), Generalized weakness, History of CVA with residual deficit Instructions: Understanding Urinary Tract Infections (UTIs) Prescriptions: Cephalexin [Keflex] 500 mg PO Q6 #40 cap Prescription Printed Referrals: Wes Estevez MD [Primary Care Provider] - 2 Days
--- NOTE | 2019-07-11 18:40 | RAD_ITS ---
STUDY: X-RAY CHEST REASON FOR EXAM: Female, 79 years old. Weakness, shortness of breath TECHNIQUE: Single frontal view of the chest COMPARISON: 03/13/2019. FINDINGS: Reidentified median sternotomy wires with fracture of the superiormost wire. Cardiac silhouette unremarkable. Pulmonary vascularity unremarkable. Aorta unremarkable. No focal airspace opacities. Blunting of the left costophrenic angle. Cannot exclude small effusion. Upper abdomen unremarkable. Osseous structures intact. No pneumothorax. RAD/Chest 1 View (Portable) IMPRESSION: Blunting of the left costophrenic angle. Cannot exclude small effusion. Otherwise, no acute cardiopulmonary findings. Electronically Signed: Denys Kelley, at 20:29 EST Tel , Service support ,
[2019-07-11 18:44] LABS: Mucous, Urine 0 SEEN /hpf (<or=2+); Red Blood Cells-Urine 0 SEEN /hpf (0-5); Squamous Epithelial Cells - UA 0 SEEN /hpf (5-10)
[2019-07-11 18:48] LABS: Absolute Neutrophil Count 5.1 X10^3/uL (2.0-7.7); Basophil# 0.03 X10^3/uL; Basophil% 0.4 % (0-1); Eosinophils% 1.4 % (0-5); Hematocrit 47.6 % (37-47); Lymphocyte % 12.3 % (19-41); Mean Corp Hgb Conc 33.6 g/dL (32-36); Mean Corpuscular Hgb 33.6 pg (27.0-32.0); Mean Platelet Vol. 11.1 fl (6.2-12.0); Monocyte# 1.13 X10^3/uL; Monocyte% 15.4 % (0-10); NRBC Flagged by Analyzer 0 % (0-5); Neutrophil % 69.5 % (47-70); Platelet Count 148 K/mm3 (150-450); RBC Distribution Width SD 55.8 fl (35.1-43.9); Red Blood Count 4.76 M/mm3 (4.2-5.4); White Blood Count 7.3 K/mm3 (4.4-11.0)
[2019-07-11 18:48] LABS: Color, Urine Yellow (Yellow); Glucose, Dipstick Normal (Normal); Ketone-Dipstick 50 mg/dl (Negative); Leukocyte Esterase-Dipstick 500 /ul (Negative); Nitrite-Dipstick Negative (Negative); Occult Blood-Urine 25 /ul (Negative); Protein-Dipstick 15 mg/dl (Negative); Specific Gravity, Urine 1.015 (1.002-1.030); Urine Clarity Cloudy (Clear); Urine Urobilinogen 12 mg/dl (Normal); Urine pH 6.5 (5.0 - 8.0)
[2019-07-11 18:53] LABS: Urine Bilirubin Dipstick 3 mg/dL (Negative)
[2019-07-11] MEDS: Ondansetron 4 MG/2 ML Vial IV (18:54)
[2019-07-11] MEDS: 0.9% Normal Saline 1,000 ML 999 ML IV (18:54)
[2019-07-11 18:55] LABS: Bacteria 1+ /hpf (None Seen); White Blood Cells >100 SEEN /hpf (0-5)
[2019-07-11 19:00] LABS: Anion Gap 6 (5-15); BUN 15 mg/dL (7-18); BUN/Creat Ratio 16.6 RATIO (10-20); Calcium,Total 8.8 mg/dL (8.5-10.1); Chloride 106 mmol/L (98-107); EST Glomerular Filtration Rate 64 mL/min (>60); Est Glom Filt Rate - Afr Amer 77 mL/min (>60); Estimated Creatinine Clearance 49.29 ml/min; Glucose 114 mg/dL (74-106); Sodium Level 139 mmol/L (136-145)
[2019-07-11 19:15] VITALS: PULSE 71; RESP 22; O2SAT 92
[2019-07-11 19:25] LABS: Differential Comment SCANNED; Platelet Estimate ADEQUATE (ADEQ)
[2019-07-11] MEDS: Mirtazapine 15 MG Tablet PO (19:27)
--- NOTE | 2019-07-11 19:48 | ED.RN ---
Clergy at bedside. Will start Rocephin when Orthodox ceremony is complete.
[2019-07-11 20:05] VITALS: BP 168/101; PULSE 70; RESP 22; O2SAT 93
[2019-07-11] MEDS: Ceftriaxone 1 GM/50 ML BAG IV (20:14)
[2019-07-11 20:54] VITALS: BP 173/98; PULSE 68; RESP 16; O2SAT 99
--- NOTE | 2019-07-11 20:55 | ED.RN ---
nurse to nurse report called to [facility]. Family at bedside updated with POC.
== END 2019-07-11 21:25 | disposition short-term general hospital (02) ==
PROVIDERS: Emergency Provider Emergency Medicine; Family Provider Family Medicine; PCP Family Medicine
DX: N39.0 Urinary tract infection, site not specified (principal); R53.1 Weakness; I69.328 Other speech and language deficits following cerebral infarction; I69.398 Other sequelae of cerebral infarction; I10 Essential (primary) hypertension; R79.89 Other specified abnormal findings of blood chemistry; I25.10 Atherosclerotic heart disease of native coronary artery without angina pectoris; I45.10 Unspecified right bundle-branch block; I48.0 Paroxysmal atrial fibrillation; E11.9 Type 2 diabetes mellitus without complications; E78.5 Hyperlipidemia, unspecified; E03.9 Hypothyroidism, unspecified; F41.8 Other specified anxiety disorders; Z95.1 Presence of aortocoronary bypass graft; Z79.01 Long term (current) use of anticoagulants; Z79.82 Long term (current) use of aspirin; Z79.899 Other long term (current) drug therapy; Z87.440 Personal history of urinary (tract) infections
CPT/HCPCS: 70450; 71045; 80048; 81001; 83605; 84484; 85025; 87040; 87804; 93005; 96361; 96365; 96375; 99285; J7030; J7050; P9612; J2405

== ENCOUNTER 2019-10-01 07:33 | Emergency (ER) | payer MEDICARE, MEDICAID, OTHER, SELFPAY ==
[2019-10-01 07:35] VITALS: BP 155/96; PULSE 80; RESP 16; TEMP 36.7; O2SAT 98; BMI 27.1
--- NOTE | 2019-10-01 07:53 | CT_ITS ---
STUDY: CT BRAIN WITHOUT CONTRAST REASON FOR EXAM: Female, 79 years old. 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 RADIATION DOSAGE (If Supplied By Facility): CTDIvol = ( 44.99 ) mGy, DLP = ( 745.49 ) mGycm TECHNIQUE: Transaxial CT imaging of the brain was performed without administration of intravenous contrast material. Individualized dose optimization techniques were used for this CT. COMPARISON: Comparison is made with prior examination dated July 11, 2019. FINDINGS: Scalp hematoma overlying the left frontal bone and left orbital region. Normal calvarium. There is moderate cerebral atrophy with widening of the extra-axial spaces and ventricular dilatation. There are areas of decreased attenuation within the white matter tracts of the supratentorial brain, consistent with microvascular disease changes. Normal basal ganglia and thalami. Stable focal hypodensity in the pontine in keeping with old ischemic change. There is mild cerebellar atrophy. There is no intracranial hemorrhage. There are no findings of an acute ischemic infarction. Atherosclerotic calcification of the cavernous portions of the internal carotid arteries bilaterally. Normal visualized paranasal sinuses. CT/Brain/Head without Contrast IMPRESSION: Chronic involutional changes of the brain. Scalp hematoma overlying the left frontal bone and left orbital region. Electronically Signed: Panfilo Gonsalves, at 8:32 EDT , Service support ,
--- NOTE | 2019-10-01 07:56 | ED.VISSUMM ---
- ER Visit Summary Date of Service: 10/01/19 Chief Complaint: Fall with head injury and left forehead laceration History of Present Illness: The patient is a [address] of CVA and prior heart surgery. Patient is currently on Eliquis. Today at the long-term she got up tripped fell striking her head causing a laceration x2 to her left forehead. She denies any other injuries. She denies any neck pain. She denies any chest, abdominal or hip pain. Physical Examination: Older female with a c-collar on. Vital signs are stable afebrile. She is awake and alert. She is answering questions. HEENT exam patient has 2 lacerations to her left forehead. They are parallel. Note both will need to be sewn. Pupils round react to light. Scalp otherwise nontender. C-spine nontender. Trachea midline. Lungs clear to auscultation bilaterally. Heart regular rhythm no murmur. Chest wall nontender. Abdomen soft and nontender. Pelvic girdle intact. Nontender. No shortening or rotation. She is normal movement both upper and lower extremities. No deformity. 5-5 order checker strength. Dorsi plantarflexion intact. Neurologically she is awake alert with no focal motor deficits at this time. Test Results: CAT scan the patient's brain read by the radiologist and reviewed by me shows a left forehead scalp hematoma. There is no fracture. There is no intracranial bleed. There are chronic changes. Emergency Department Course and Treatment: The patient being on the blood thinner and striking her head with a laceration she will undergo a CAT scan of her brain to rule out intracranial bleed. The 2 lacerations will need to be repaired. Let will be applied. To be locally anesthetized with lidocaine. Procedure note: Forehead laceration #1 is 3 cm in length. Locally anesthetized with let solution and then injected with lidocaine. Cleaned with Shur-Clens washed with saline and explored. Closed using 5 simple interrupted 5-0 Ethilon sutures. Left forehead laceration #2 4 cm in length. Again locally anesthetized. Cleaned with Shur-Clens washed and explored. Closed using 6 5-0 Ethilon sutures. Patient tolerated procedure well. Good hemostasis wound closure was obtained. Once laceration is repaired I reevaluated the patient. She has no new findings. Treatment Plan: Wound care. Head injury instructions. Suture removal in 7 days. Her Eliquis the next 2 days. Disposition: discharge Impression: Acute fall Left forehead lacerations x2 #1 3 cm in length #2 4 cm in length Anticoagulated on Eliquis Closed head injury This note was generated with [employer] dictation software. It may contain incorrect words, spelling, and punctuation that were not noted in review of the chart prior to signing ED Disposition - Plan for ED Patient: Referrals: Wes Estevez MD [Primary Care Provider] -
[2019-10-01] MEDS: Lidocaine/Epi/Tetracaine 50 ML 1 APPLIC TOPICAL (07:57)
--- NOTE | 2019-10-01 09:14 | NURSING ---
Contacted pt's daughter Roseanna via phone; updated on CT results, suturing and probable DC. Roseanna voices understanding.
--- NOTE | 2019-10-01 09:19 | ED.DEP ---
ED Disposition - Plan for ED Patient: Disposition: Home or Assisted Living Instructions: ED Head Injury Adult, ED Laceration Facial Sutr Tape Referrals: Wes Estevez MD [Primary Care Provider] - 10 Day for suture removal Additional Instructions: Keep wounds clean. Apply antibiotic daily. Ice to the forehead wounds for the next 2 days 30 minutes at a time 3 times a day. Hold her blood thinner Eliquis both today and tomorrow. May restart it normally on Friday. Head injury instructions. If she starts vomiting or not acting normally she needs to be reevaluated. There was a CAT scan done today of her brain and it was unremarkable. Suture removal both forehead lacerations in 10 days. Watch for any signs of infection.
[2019-10-01 09:57] VITALS: BP 149/86; PULSE 86; RESP 16; O2SAT 95
== END 2019-10-01 10:24 | disposition home or self-care (01) ==
PROVIDERS: Emergency Provider Emergency Medicine; PCP Family Medicine
DX: S01.81XA Laceration without foreign body of other part of head, initial encounter (principal); W01.0XXA Fall on same level from slipping, tripping and stumbling without subsequent striking against object, initial encounter; Y93.9 Activity, unspecified; Y92.129 Unspecified place in nursing home as the place of occurrence of the external cause; Z95.1 Presence of aortocoronary bypass graft; Z79.01 Long term (current) use of anticoagulants; Z86.73 Personal history of transient ischemic attack (TIA), and cerebral infarction without residual deficits
CPT/HCPCS: 12014; 70450; 99285